=== PATIENT | female | born 1955 | race Caucasian/White ===

== ENCOUNTER → 2017-10-24 15:51 | Outpatient (CLI) | payer MEDICARE, SELFPAY ==
--- NOTE | 2017-10-24 16:01 | HPBI_ITS ---
MAMMOGRAPHY - BILATERAL SCREENING REASON FOR EXAM: Female, 62 years old. Routine annual screening examination. PERTINENT HISTORY: Aunt with breast cancer. TECHNIQUE: Digital bilateral breast liborio (3D mammographic acquisition) in the CC and MLO projections. 2-D mediolateral oblique (MLO) and craniocaudad (CC) views of both breasts were obtained. CAD: Full Field Digital Mammography with Computer Added Detection was performed. COMPARISON: Comparison is made with prior study dated December 09, 2015. FINDINGS: Breast Composition: The breasts are almost entirely fatty. There are no dominant masses or suspicious calcifications. No other significant abnormalities are identified. There has been no significant change since the prior study. HPBI/SCREENING MAMM (CAD), BILAT IMPRESSION: Stable bilateral screening mammogram. Yearly follow-up mammogram recommended. (A) ASSESSMENT CATEGORY: BIRADS Category 1: Negative. A letter regarding these results will be sent to the patient by the facility within 30 days. Approximately 10% of breast cancers are not detected by mammography. A normal mammogram should not delay biopsy of a clinically suspicious abnormality. [id number] Electronically Signed: Darius Marin MD at 9:39 EST Tel [phone], Service support ,
== END ==
PROVIDERS: Family Provider Family Medicine; PCP Family Medicine; Visit Provider Nurse Practitioner Women's Health
DX: Z12.31 Encounter for screening mammogram for malignant neoplasm of breast (principal)
CPT/HCPCS: 77063; 77067

== ENCOUNTER → 2017-11-16 13:49 | Outpatient (CLI) | payer MEDICARE, SELFPAY ==
[2017-11-16 16:00] LABS: Hemoglobin A1c 7.8 % (4.2-6.3)
[2017-11-16 16:04] LABS: AST(SGOT) 14 U/L (15-37); Alanine Aminotransfer ALT/SGPT 32 U/L (13-56); Albumin, Serum 3.5 g/dL (3.2-5.0); Alkaline Phosphatase 56 U/L (45-117); Anion Gap 9 (5-15); BUN 19 mg/dL (7-18); BUN/Creat Ratio 28.9 RATIO (10-20); Calcium,Total 8.8 mg/dL (8.5-10.1); Chloride 106 mmol/L (98-107); Cholesterol 124 mg/dL (200); Creatinine, Serum 0.66 mg/dL (0.55-1.02); EST Glomerular Filtration Rate 97 mL/min (>60); Est Glom Filt Rate - Afr Amer 117 mL/min (>60); Globulin 3.4 g/dL (2.2-4.2); Glucose 140 mg/dL (74-106); High Density Lipoprotein 51 mg/dL; Magnesium 1.7 mg/dL (1.6-2.6); Potassium 3.8 mmol/L (3.5-5.1); Protein, Total 6.9 g/dL (6.4-8.2); Sodium Level 140 mmol/L (136-145); Thyroid Stim Hormone (TSH) 2.22 uIU/mL (0.358-3.74); Triglycerides 169 mg/dL; Very Low Density Lipoprotein 34 mg/dL (5-40)
[2017-11-16 16:06] LABS: Hematocrit 39.7 % (37-47); Hemoglobin 12.3 g/dl (12.0-15.0); Mean Corpuscular Hgb 26.1 pg (27.0-32.0); Mean Corpuscular Volume 84.1 fL (81-99); Mean Platelet Vol. 9.5 fl (6.2-12.0); POSITIVE COUNT NO; POSITIVE DIFFERENTIAL NO; POSITIVE MORPHOLOGY NO; Platelet Count 371 K/mm3 (150-450); RBC Distribution Width CV 16.5 % (11.6-14.6); RBC Distribution Width SD 50.1 fl (35.1-43.9); Red Blood Count 4.72 M/mm3 (4.2-5.4); White Blood Count 10.8 K/mm3 (4.4-11.0)
[2017-11-16 16:07] LABS: Absolute Lymphocyte Count 2.57 X10^3/ul (0.83-4.51); Absolute Neutrophil Count 7.5 X10^3/uL (2.0-7.7); Basophil# 0.01 X10^3/uL; Basophil% 0.1 % (0-1); Eosinophil# 0.16 X10^3/uL; Eosinophils% 1.5 % (0-5); Lymphocyte # 2.57 X10^3/ul (4.0); Lymphocyte % 23.8 % (19-41); Monocyte# 0.55 X10^3/uL; Monocyte% 5.1 % (0-10); Neutrophil # 7.51 X10^3/uL (2.7-7.7); Neutrophil % 69.3 % (47-70)
[2017-11-16 16:24] LABS: Microalbumin,Random Urine 68.6 mg/L (NO RANGE EST.); Microalbumin:Creatinine Ratio 52.8 mg/g CRE (<30 mg/g CRE)
== END ==
PROVIDERS: Family Provider Family Medicine; PCP Family Medicine; Visit Provider Family Medicine
DX: E83.42 Hypomagnesemia (principal); R00.2 Palpitations; I10 Essential (primary) hypertension; E11.9 Type 2 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 without complications; E78.5 Hyperlipidemia, unspecified
CPT/HCPCS: 36415; 80053; 80061; 82043; 82570; 83036; 83735; 84443; 85025

== ENCOUNTER 2017-12-13 06:15 | Emergency (ER) | payer MEDICARE, SELFPAY ==
[2017-12-13 06:16] VITALS: BP 79/57
[2017-12-13 06:17] VITALS: BP 79/57; PULSE 105; RESP 22; TEMP 36.3; O2SAT 99; BMI 47.4
[2017-12-13 06:20] VITALS: BP 126/79; BP 134/75
[2017-12-13 06:43] LABS: Absolute Lymphocyte Count 1.63 X10^3/ul (0.83-4.51); Absolute Neutrophil Count 6.7 X10^3/uL (2.0-7.7); Basophil# 0.01 X10^3/uL; Basophil% 0.1 % (0-1); Eosinophil# 0.06 X10^3/uL; Eosinophils% 0.7 % (0-5); Hematocrit 43.1 % (37-47); Hemoglobin 13.9 g/dl (12.0-15.0); Lymphocyte # 1.63 X10^3/ul (4.0); Lymphocyte % 18.1 % (19-41); Mean Corp Hgb Conc 32.3 g/gl (32-36); Mean Corpuscular Hgb 26.9 pg (27.0-32.0); Mean Corpuscular Volume 83.4 fL (81-99); Mean Platelet Vol. 9.4 fl (6.2-12.0); Monocyte# 0.59 X10^3/uL; Monocyte% 6.6 % (0-10); Neutrophil # 6.68 X10^3/uL (2.7-7.7); Neutrophil % 74.3 % (47-70); Platelet Count 504 K/mm3 (150-450); RBC Distribution Width SD 51.4 fl (35.1-43.9); Red Blood Count 5.17 M/mm3 (4.2-5.4)
[2017-12-13 06:44] LABS: POSITIVE COUNT NO; POSITIVE DIFFERENTIAL NO; POSITIVE MORPHOLOGY NO
[2017-12-13] MEDS: 0.9% Normal Saline 1,000 ML 1000 ML IV (06:47)
[2017-12-13] MEDS: Ondansetron 4 MG/2 ML Vial IV ×2 (06:48→08:37)
--- NOTE | 2017-12-13 06:54 | ED.VISSUMM ---
- ER Visit Summary Date of Service: 12/13/17 Chief Complaint: Nausea, vomiting, diarrhea History of Present Illness: The patient is a 62 F presents initially with diarrhea 2 days ago, total of 20 episodes, last time was prior to arrival. No recent antibiotics. No melena or hematochezia. Also states 2 days ago had vomiting of 6-7 episodes, none for the past day. Currently nausea, states he is trying to keep up with fluids. Denies abdominal pain. Denies fever, chills, sweats. No cough or chest pains. States his urine frequency and dysuria a few days ago which resolved with cranberry. No other complaints. 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 Physical Examination: General: Alert and oriented ?3, no acute distress HEENT: Normocephalic, atraumatic. Mild dry mucosa membranes Neck: supple, nontender. Cardiovascular: Regular rate and rhythm, no murmurs Respiratory: Normal breath sounds, symmetric, no distress Abdomen: Soft, nontender, nondistended. Negative Hassan's or McBurney's tenderness. Extremities: Nontender, no edema, pulses intact ?4 Neuro: no focal neurological deficits. Test Results: [] Emergency Department Course and Treatment: Patient nonsurgical abdomen. Initial triage blood pressure 79/57, rechecked in the room was 126/79. Patient mild dry mucosa membranes. Given IV fluids, Zofran for nausea. Will check abdominal labs including INR. UA also sent for recent dysuria and frequency. Patient will be signed out to oncoming physician. Treatment Plan: [] Disposition: Pending Impression: 1. Nausea, vomiting, diarrhea This note was generated with [employer] dictation software. It may contain incorrect words, spelling, and punctuation that were not noted in review of the chart prior to signing ED Disposition - Plan for ED Patient: Chief Complaint: Nausea/Vomiting/Diarrhea Referrals: Sukhdeep Matthews DO [Primary Care Provider] -
[2017-12-13 06:55] LABS: Bacteria 0 SEEN /hpf (None Seen); Mucous, Urine 0 SEEN /hpf (<or=2+)
[2017-12-13 06:57] LABS: ALB/GLOB Ratio 0.9 RATIO (0.9-2.4); AST(SGOT) 11 U/L (15-37); Alanine Aminotransfer ALT/SGPT 20 U/L (13-56); Albumin, Serum 3.6 g/dL (3.2-5.0); Alkaline Phosphatase 69 U/L (45-117); Anion Gap 7 (5-15); BUN 12 mg/dL (7-18); BUN/Creat Ratio 16.8 RATIO (10-20); Calcium,Total 8.4 mg/dL (8.5-10.1); Chloride 107 mmol/L (98-107); Creatinine, Serum 0.72 mg/dL (0.55-1.02); EST Glomerular Filtration Rate 88 mL/min (>60); Est Glom Filt Rate - Afr Amer 106 mL/min (>60); Estimated Creatinine Clearance 69.06 ml/min; Globulin 4.1 g/dL (2.2-4.2); Glucose 180 mg/dL (74-106); Lipase 53 U/L (73-393); Potassium 3.3 mmol/L (3.5-5.1); Protein, Total 7.7 g/dL (6.4-8.2); Sodium Level 138 mmol/L (136-145)
[2017-12-13 07:03] LABS: Color, Urine YELLOW (Yellow); Glucose, Dipstick Normal (Normal); Ketone-Dipstick 5 mg/dl (Negative); Leukocyte Esterase-Dipstick 500 /ul (Negative); Nitrite-Dipstick Positive (Negative); Occult Blood-Urine 50 /ul (Negative); Protein-Dipstick 30 mg/dl (Negative); Red Blood Cells-Urine 0-5 SEEN /hpf (0-5); Squamous Epithelial Cells - UA 50-100 SEEN /hpf (5-10); Urine Bilirubin Dipstick Negative (Negative); Urine Clarity Cloudy (Clear); Urine Urobilinogen Normal (Normal); White Blood Cells 10-25 SEEN /hpf (0-5)
[2017-12-13 07:09] LABS: International Normalized Ratio 2.4; Prothrombin Time (Protime)PT. 26.2 SECONDS (11.7-14.9)
[2017-12-13] MEDS: proMETHazine 25 MG/ML Syringe 12.5 MG IV (07:21)
[2017-12-13 08:00] VITALS: BP 128/74; PULSE 84; RESP 18; O2SAT 98
[2017-12-13] MEDS: Mag Hydrox/Al Hydrox/Simeth 30 ML UDC PO (08:36)
[2017-12-13 08:40] VITALS: BP 110/62; PULSE 83; RESP 18
--- NOTE | 2017-12-13 09:26 | ED.VISSUMM ---
- ER Visit Summary Date of Service: 12/13/17 Addendum: This patient was checked out to me by Dr. Sheldon with period of observation pending. Received a dose of Rocephin IV. She complained of heartburn and was given Maalox and Zofran IV. She is resting comfortably. She has been able to ambulate about the emergency part without difficulty. Treatment Plan: Patient will be discharged on Keflex. She is instructed not to take her Coumadin for the next 2 days and to get her INR checked again. She will be placed on Zofran and Bentyl. Follow-up her primary care physician 1-2 days if not improving. Return to the emergency department for any worsening symptoms. Disposition: To home in improved and stable condition. Impression: 1. UTI. 2. Vomiting/diarrhea. 3. Coumadin coagulopathy. This note was generated with [employer] dictation software. It may contain incorrect words, spelling, and punctuation that were not noted in review of the chart prior to signing ED Disposition - Plan for ED Patient: Chief Complaint: Nausea/Vomiting/Diarrhea Instructions: ED Vomiting Diarrhea Nonspecific Ad Prescriptions: Ondansetron [Zofran Odt] 4 mg PO Q8H PRN PRN #10 tablet PRN Reason: Nausea Cephalexin [Keflex] 500 mg PO Q6 #24 capsule Dicyclomine HCl [Bentyl] 20 mg PO TIDAC #20 capsule Referrals: Sukhdeep Matthews DO [Primary Care Provider] - 1-2 Days if not improving
[2017-12-13 09:54] VITALS: BP 120/70; PULSE 80; RESP 18
== END 2017-12-13 09:57 | disposition home or self-care (01) ==
PROVIDERS: Emergency Provider Emergency Medicine; Family Provider Family Medicine; PCP Family Medicine
DX: N39.0 Urinary tract infection, site not specified (principal); R11.2 Nausea with vomiting, unspecified; R19.7 Diarrhea, unspecified; D68.2 Hereditary deficiency of other clotting factors; I25.2 Old myocardial infarction; J45.909 Unspecified asthma, uncomplicated; E11.9 Type 2 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 without complications; I10 Essential (primary) hypertension; E78.00 Pure hypercholesterolemia, unspecified; Z86.711 Personal history of pulmonary embolism; Z86.718 Personal history of other venous thrombosis and embolism; Z90.89 Acquired absence of other organs; Z90.49 Acquired absence of other specified parts of digestive tract; Z96.643 Presence of artificial hip joint, bilateral; Z79.84 Long term (current) use of oral hypoglycemic drugs; Z79.01 Long term (current) use of anticoagulants; Z79.899 Other long term (current) drug therapy
CPT/HCPCS: 80053; 81001; 83690; 85025; 85610; 87086; 87088; 87186; 96361; 96365; 96374; 96375; 96376; 99284; J7030; A4216; J2405

== ENCOUNTER 2017-12-21 17:25 | Inpatient (IN) | payer MEDICARE, SELFPAY ==
[2017-12-21 17:25] VITALS: BP 177/100; PULSE 110; RESP 18; TEMP 36.9; O2SAT 96; BMI 47.2
--- NOTE | 2017-12-21 17:47 | CT_ITS ---
STUDY: CT ABDOMEN AND PELVIS WITH CONTRAST REASON FOR EXAM: Female, 62 years old. Diffuse abdominal pain RADIATION DOSAGE (If Supplied By Facility): CTDIvol = ( 21.87 ) mGy, DLP = ( 1747.42 ) mGycm TECHNIQUE: Transaxial images were obtained from the dome of the diaphragm to the symphysis pubis without oral contrast. 100ML ml of Isovue 300 contrast was administered. Sagittal and coronal images were reconstructed. Individualized dose optimization techniques were used for this CT. COMPARISON: March 14, 2013 FINDINGS: There is minor atelectasis at the right lung base.. The visualized portions of the heart are within normal limits. Liver is enlarged and fatty infiltrated without mass or bile duct dilatation. Gallbladder has been removed surgically. Normal spleen. The pancreas is atrophic and fatty infiltrated. Normal bilateral adrenal glands. Normal right kidney. Normal left kidney. Normal visualized stomach. Normal small intestine. Normal colon. Appendix not visualized consistent with appendectomy. Minor atherosclerotic changes of the aorta without evidence for aneurysm. Normal inferior vena cava. Normal retroperitoneum. Normal urinary bladder. There is a left adnexal cyst measuring approximately 3 x 2.8 cm likely ovarian Tiny fat-containing umbilical hernia.. Lumbar spine demonstrates moderate spondylosis. Bilateral hip prostheses are noted The left adnexal cyst has decreased in size since prior study CT/Abdomen/Pelvis WITH Contrast IMPRESSION: No acute abnormality Hepatomegaly and nonspecific fatty infiltration of the liver. Status post cholecystectomy and appendectomy. small left ovarian cyst Multiple other findings as above Electronically Signed: Eleazar Venegas MD at 20:36 EDT , Service support ,
--- NOTE | 2017-12-21 17:50 | ED.VISSUMM ---
- ER Visit Summary Date of Service: 12/21/17 Chief Complaint: Abdominal pain History of Present Illness: The patient is a 62 F presenting with abdominal pain. She states she had similar symptoms a week ago. She was seen in the ED at that time. She was treated with Bentyl and Zofran with improvement. She was also started on Keflex for a UTI. She states she was feeling improved and her symptoms started again today. She has had vomiting and diarrhea. Denies fever. She has diffuse abdominal pain. She has a history of previous appendectomy and cholecystectomy. Physical Examination: Vitals are stable. Patient is afebrile. Alert no acute distress. HEENT exam is unremarkable. Neck is supple. Lungs are clear and equal bilaterally. Heart is regular rate and rhythm. Abdomen is soft diffuse tenderness with no rebound or guarding Extremities are unremarkable. Skin is warm and dry. No focal neurologic deficit. Remainder of exam is unremarkable. Emergency Department Course and Treatment: She is given morphine, Zofran. CBC shows a white count of 23.4. Chemistries show glucose 167. INR 2.1. Liver enzymes are normal. Urinalysis shows 5-10 white cells. Urine culture was sent. CT abdomen and pelvis shows no acute process. She continues to have diffuse abdominal pain. Chest xray is unremarkable. Stool studies will be sent. Discussed with the hospitalist for observation. Disposition: Admission Impression: Abdominal pain, leukocytosis, diarrhea This note was generated with [employer] dictation software. It may contain incorrect words, spelling, and punctuation that were not noted in review of the chart prior to signing ED Disposition - Plan for ED Patient: Chief Complaint: Abd Pain Referrals: Sukhdeep Matthews DO [Primary Care Provider] -
[2017-12-21] MEDS: Ondansetron 4 MG/2 ML Vial IV (18:08)
[2017-12-21] MEDS: Morphine 4 MG/ML Syringe IV (18:08)
[2017-12-21 18:16] LABS: Bacteria 0 SEEN /hpf (None Seen)
[2017-12-21 18:30] LABS: International Normalized Ratio 2.1
[2017-12-21 18:34] LABS: Absolute Lymphocyte Count 1.09 X10^3/ul (0.83-4.51); Absolute Neutrophil Count 21.3 X10^3/uL (2.0-7.7); Basophil# 0.02 X10^3/uL; Basophil% 0.1 % (0-1); Eosinophil# 0.24 X10^3/uL; Hematocrit 44.2 % (37-47); Hemoglobin 13.7 g/dl (12.0-15.0); Lymphocyte # 1.09 X10^3/ul (4.0); Lymphocyte % 4.7 % (19-41); Mean Platelet Vol. 9.6 fl (6.2-12.0); Monocyte# 0.62 X10^3/uL; Monocyte% 2.7 % (0-10); Neutrophil % 91.2 % (47-70); Platelet Count 402 K/mm3 (150-450); RBC Distribution Width CV 16.5 % (11.6-14.6); RBC Distribution Width SD 50.9 fl (35.1-43.9); Red Blood Count 5.26 M/mm3 (4.2-5.4); White Blood Count 23.4 K/mm3 (4.4-11.0)
[2017-12-21 18:35] LABS: Differential Indicated SCAN CRITERIA MET; POSITIVE COUNT NO; POSITIVE DIFFERENTIAL YES; POSITIVE MORPHOLOGY YES
[2017-12-21 18:57] LABS: AST(SGOT) 17 U/L (15-37); Alanine Aminotransfer ALT/SGPT 23 U/L (13-56); Albumin, Serum 3.5 g/dL (3.2-5.0); Alkaline Phosphatase 65 U/L (45-117); Anion Gap 11 (5-15); BUN 16 mg/dL (7-18); BUN/Creat Ratio 21.3 RATIO (10-20); Bilirubin, Direct 0.06 mg/dL (0.00-0.30); Calcium,Total 8.9 mg/dL (8.5-10.1); Chloride 104 mmol/L (98-107); Creatinine, Serum 0.75 mg/dL (0.55-1.02); EST Glomerular Filtration Rate 83 mL/min (>60); Est Glom Filt Rate - Afr Amer 100 mL/min (>60); Globulin 3.8 g/dL (2.2-4.2); Glucose 167 mg/dL (74-106); Lipase 77 U/L (73-393); Potassium 3.6 mmol/L (3.5-5.1); Protein, Total 7.3 g/dL (6.4-8.2); Sodium Level 141 mmol/L (136-145)
[2017-12-21 19:02] LABS: Color, Urine Yellow (Yellow); Glucose, Dipstick Normal (Normal); Ketone-Dipstick 5 mg/dl (Negative); Leukocyte Esterase-Dipstick 25 /ul (Negative); Nitrite-Dipstick Negative (Negative); Occult Blood-Urine 25 /ul (Negative); Protein-Dipstick 30 mg/dl (Negative); Specific Gravity, Urine 1.025 (1.002-1.030); Urine Bilirubin Dipstick 1 mg/dL (Negative); Urine Clarity Sl. Cloudy (Clear); Urine Urobilinogen Normal (Normal)
[2017-12-21 19:29] VITALS: BP 158/89; PULSE 95; RESP 14; O2SAT 99
[2017-12-21 19:32] LABS: Calcium Oxalate Crystals Ur 1+ /hpf (<or=2+); Squamous Epithelial Cells - UA 0-5 SEEN /hpf (5-10); White Blood Cells 5-10 SEEN /hpf (0-5)
[2017-12-21 19:33] LABS: Mucous, Urine RARE /hpf (<or=2+); Red Blood Cells-Urine 0-5 SEEN /hpf (0-5)
[2017-12-21 20:49] VITALS: BP 155/70; PULSE 92; RESP 14; O2SAT 99
--- NOTE | 2017-12-21 20:50 | RAD_ITS ---
STUDY: X-RAY CHEST REASON FOR EXAM: Female, 62 years old. Abdominal pain and vomiting TECHNIQUE: AP portable COMPARISON: December 04, 2016 FINDINGS: There is elevation right hemidiaphragm and mild subsegmental atelectasis in the right lower lobe. There is no demonstrated pleural abnormality. The heart is upper normal size. Normal mediastinum and tessie. Normal visualized pulmonary arteries. Normal visualized aortic arch and descending thoracic aorta. Dorsal spine demonstrates spondylosis. Normal visualized ribs, clavicles, and shoulders. There is no demonstrated abnormality of the visualized soft tissue structures of the upper abdomen. RAD/Chest 1 View (Portable) IMPRESSION: Elevated right hemidiaphragm and mild right basilar atelectasis Electronically Signed: Eleazar Venegas MD at 21:29 EDT , Service support ,
[2017-12-21 21:09] VITALS: BP 150/80; PULSE 92; RESP 14; O2SAT 99
[2017-12-21] MEDS: proMETHazine 25 MG/ML Syringe 6.25 MG IV (21:36)
--- NOTE | 2017-12-21 22:44 | PCM.HP.STD ---
Problem List (1) Diarrhea Status: Acute (2) Sprain and strain of ribs Status: Acute (3) DVT (deep venous thrombosis) Status: Chronic Qualifiers: DVT location: lower extremity (4) Diabetes mellitus Status: Chronic (5) HLD (hyperlipidemia) Status: Chronic (6) HTN (hypertension) Status: Chronic History of Present Illness Date of Admission: 12/21/17 Chief Complaint: Diarrhea The patient is a 62 year old female w/ h/o DVT, PE, DMII, HTN and lipidemia admitted for diarrhea. Pt had similar episode a week ago when she presented to the ED. She had diarrhea, n/v and abdominal pain at that time as well. The pain has improved as well as the diarrhea until today. Today, she noted worsening dull-aching abdominal pain diffusely in her upper abdominal area. Pain was severe and would stop her in her track. Pain was associated with diarrhea. No blood. No tarry stool. She had multiple episodes of diarrhea today. Nothing would make it better or worse. No one else in her family is sick. She also has n/v and is not able to tolerate PO. She went to the ED for further workup. Past Medical History Past Medical History (Chronic Problems): Chronic Problems (Last Updated 09/07/17 @ 14:31 by Lor Sahu) HLD (hyperlipidemia) (Chronic) HTN (hypertension) (Chronic) Diabetes mellitus (Chronic) DVT (deep venous thrombosis) (Chronic) Pulmonary emboli (Chronic) 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 syndrome (Chronic) Allergies KENYA Inhibitors Allergy (Verified 12/21/17 17:27) Other clindamycin Allergy (Verified 12/21/17 17:27) Hives liraglutide [From Victoza] Allergy (Verified 12/21/17 17:27) Hives propoxyphene napsylate [From Darvocet-N 100] Allergy (Verified 12/21/17 17:27) Unknown Home Medications: Ambulatory Orders Medication Instructions Recorded Albuterol IH (ProAir) [Proair Hfa] 2 puff INHALATION Q4H PRN PRN 02/09/14 Fenofibrate [Lofibra] 160 mg PO QHS 02/09/14 Hydrochlorothiazide 25 mg PO DAILY 02/09/14 Lansoprazole [Prevacid] 30 mg PO DAILY 02/09/14 Metformin HCl [Glucophage] 1,000 mg PO BIDCM 02/09/14 Ropinirole HCl [Requip] 3 - 6 mg PO QHS 02/09/14 Warfarin [Coumadin] 2.5 mg PO DAILY 02/09/14 traMADol [Ultram] 50 mg PO Q6H PRN PRN #8 tablet 04/09/14 Exenatide [Byetta (BKC)] 10 mcg SC BIDAC 11/30/16 Losartan Potassium [Cozaar] 50 mg PO DAILY 11/30/16 Sertraline HCl [Zoloft] 200 mg PO DAILY 11/30/16 Atorvastatin Calcium [Lipitor] 40 mg PO QHS 12/04/16 trospium ER 60 mg capsule,extended 60 mg PO QAM 09/07/17 release 24 hr Cephalexin [Keflex] 500 mg PO Q6 #24 capsule 12/13/17 Dicyclomine HCl [Bentyl] 20 mg PO TIDAC #20 capsule 12/13/17 Furosemide [Lasix] 20 mg PO DAILY 12/13/17 Ondansetron [Zofran Odt] 4 mg PO Q8H PRN PRN #10 tablet 12/13/17 Potassium Chloride [K-Dur] 20 meq PO BID 12/22/17 Smoking Status: Never smoker - *Family History Paternal History Items: Heart Disease - CHF Review of Systems Constitutional: Denies: Chills, Fever, Weight Change HEENT: Denies: Head Aches, Sinus Congestion, Sinus Drainage Cardiovascular: Denies: Chest Pain, Palpitations Respiratory: Denies: Cough, Shortness of breath at rest, Sputum production Gastrointestinal: Denies: Abdominal Pain, Nausea, Vomiting Genitourinary: Denies: Dysuria Musculoskeletal: Denies: Joint Pain, Joint Tenderness Skin: Denies: Rash, Wounds Neurological: Denies: Numbness, Tingling, Focal weakness Psychiatric: Denies: Anxiety, Depression, Homicidal Ideations, Suicidal Ideations Hematologic/ Lymphatic: Denies: Easy Bruising, Easy Bleeding VTE Information - Inpt Only VTE Present on Admission: No VTE Mechan Device Prophylaxis: SCD's VTE Pharm Prophylaxis ordered?: Yes Patient Problems: Active and Suspected Problems (Last Updated 09/07/17 @ 14:31 by Lor Sahu) Diarrhea (Acute) - Physical Exam General: Alert, Oriented x3, Cooperative HEENT: Atraumatic, PERRLA, EOMI, Normocephalic Neck: Supple, No JVD, Negative Carotid Bruits Lungs: Clear to auscultation, Normal air movement Cardiovascular: Regular rate, No murmurs Abdomen: Bowel Sounds Present, Soft, Distended, Obese, Tender Extremities: No edema, Capillary Refill Less than 3 Seconds Skin: No rashes, No breakdown Musculoskeletal: No Tenderness to Palpation of Joints or Extremities Neurological: Cranial nerves II-XII grossly intact Psych/Mental Status: Normal Affect, Appropriate Vital Signs Temp Pulse Resp BP Pulse Ox 98.5 F 92 14 150/80 H 99 12/21/17 17:25 12/21/17 21:09 12/21/17 21:09 12/21/17 21:09 12/21/17 21:09 Oxygen Delivery Method Room Air Weight: 124.738 kg Body Mass Index (BMI) 47.2 Laboratory Tests Past 24 Hrs 12/21/17 12/21/17 12/21/17 18:00 18:00 18:00 WBC 23.4 H RBC 5.26 Hgb 13.7 Hct 44.2 MCV 84.0 MCH 26.0 L MCHC 31.0 L RDW 16.5 H RDW Differential 50.9 H Plt Count 402 MPV 9.6 Immature Gran % (Auto) 0.300 Neut % (Auto) 91.2 H Lymph % (Auto) 4.7 L [place] % (Auto) 2.7 Eos % (Auto) 1.0 Baso % (Auto) 0.1 Absolute Neuts (auto) 21.3 H Absolute Lymphs (auto) 1.09 Total Counted Not Reportable Differential Comment PT 24.0 H INR 2.1 Sodium 141 Potassium 3.6 Chloride 104 Carbon Dioxide 26.0 Anion Gap 11 BUN 16 Creatinine 0.75 Estim Creat Clear Calc 66.30 Est GFR (MDRD) Af Amer 100 Est GFR (MDRD) Non-Af 83 BUN/Creatinine Ratio 21.3 H Glucose 167 H Calcium 8.9 Total Bilirubin 0.30 Direct Bilirubin 0.06 AST 17 ALT 23 Alkaline Phosphatase 65 Total Protein 7.3 Albumin 3.5 Globulin 3.8 Lipase 77 Urine Color Urine Clarity Urine pH Ur Specific [place] Urine Protein Urine Glucose (UA) Urine Ketones Urine Occult Blood Urine Nitrite Urine Bilirubin Urine Urobilinogen Ur Leukocyte Esterase Urine RBC Urine WBC Ur Squamous Epith Cells Calcium Oxalate Crystal Urine Bacteria Urine Mucus 03/30/18 18:00 WBC RBC Hgb Hct MCV MCH MCHC RDW RDW Differential Plt Count MPV Immature Gran % (Auto) Neut % (Auto) Lymph % (Auto) [place] % (Auto) Eos % (Auto) Baso % (Auto) Absolute Neuts (auto) Absolute Lymphs (auto) Total Counted Differential Comment PT INR Sodium Potassium Chloride Carbon Dioxide Anion Gap BUN Creatinine Estim Creat Clear Calc Est GFR (MDRD) Af Amer Est GFR (MDRD) Non-Af BUN/Creatinine Ratio Glucose Calcium Total Bilirubin Direct Bilirubin AST ALT Alkaline Phosphatase Total Protein Albumin Globulin Lipase Urine Color Yellow Urine Clarity Sl. Cloudy Urine pH 5.0 Ur Specific [place] 1.025 Urine Protein 30 H Urine Glucose (UA) Normal Urine Ketones 5 H Urine Occult Blood 25 H Urine Nitrite Negative Urine Bilirubin 1 H Urine Urobilinogen Normal Ur Leukocyte Esterase 25 H Urine RBC 0-5 SEEN Urine WBC 5-10 SEEN Ur Squamous Epith Cells 0-5 SEEN Calcium Oxalate Crystal 1+ Urine Bacteria 0 SEEN Urine Mucus RARE Assessment/Plan Active and Suspected Problems (Last Updated 09/07/17 @ 14:31 by Lor Sahu) Diarrhea (Acute) 62 year old female w/ h/o DVT, PE, DMII, HTN and lipidemia admitted for diarrhea. 1) Diarrhea: C. diff and stool and enteric pathogens stool pending. C/w empiric treatment with Cipro and flagyl given leukocytosis. Awaiting cultures. Supportive care, ie hydration. 2) Abdominal pain: Unclear etiology. Possible viral gastroenteritis / GERD. Lipase wnl. Lactic wnl. CT abdominal negative. LFT wnl. Pain controlled. Monitor. 3) H/o DVT / PE: C/w coumadin.
[2017-12-21 23:29] VITALS: BMI 47.2
[2017-12-21 23:41] VITALS: BMI 47.3
[2017-12-21 23:42] VITALS: BP 119/60; PULSE 99; RESP 18; TEMP 36.9; O2SAT 96
[2017-12-22] VITALS (7 sets, daily range): BP systolic 90–127; BP diastolic 43–89; PULSE 69–78; RESP 16–18; TEMP 36.1–36.8; O2SAT 96–97
[2017-12-22 00:55] LABS: Bedside Glucose 144 mg/dL (70-110)
[2017-12-22] MEDS: 0.9% Normal Saline 1,000 ML 150 ML IV (01:05)
[2017-12-22] MEDS: Ciprofloxacin 400 MG/200 ML BAG 200 MG IV (02:22)
[2017-12-22 05:46] LABS: Reflex Lactate? Y
[2017-12-22] MEDS: Dicyclomine 10 MG Capsule 20 MG PO ×3 (06:04→16:48)
[2017-12-22 06:55] LABS: Absolute Lymphocyte Count 1.58 X10^3/ul (0.83-4.51); Absolute Neutrophil Count 9.1 X10^3/uL (2.0-7.7); Basophil# 0.01 X10^3/uL; Basophil% 0.1 % (0-1); Eosinophil# 0.61 X10^3/uL; Eosinophils% 5.2 % (0-5); Hematocrit 35.6 % (37-47); Hemoglobin 11.3 g/dl (12.0-15.0); Lymphocyte # 1.58 X10^3/ul (4.0); Lymphocyte % 13.4 % (19-41); Mean Corp Hgb Conc 31.7 g/gl (32-36); Mean Corpuscular Hgb 26.7 pg (27.0-32.0); Mean Platelet Vol. 9.4 fl (6.2-12.0); Monocyte# 0.44 X10^3/uL; Monocyte% 3.7 % (0-10); Neutrophil # 9.09 X10^3/uL (2.7-7.7); Neutrophil % 77.4 % (47-70); POSITIVE COUNT NO; POSITIVE DIFFERENTIAL NO; POSITIVE MORPHOLOGY NO; Platelet Count 361 K/mm3 (150-450); RBC Distribution Width CV 16.6 % (11.6-14.6); RBC Distribution Width SD 50.6 fl (35.1-43.9); Red Blood Count 4.24 M/mm3 (4.2-5.4); White Blood Count 11.8 K/mm3 (4.4-11.0)
[2017-12-22 07:07] LABS: Anion Gap 8 (5-15); BUN 11 mg/dL (7-18); BUN/Creat Ratio 20.4 RATIO (10-20); Calcium,Total 7.6 mg/dL (8.5-10.1); Chloride 107 mmol/L (98-107); Creatinine, Serum 0.54 mg/dL (0.55-1.02); EST Glomerular Filtration Rate 121 mL/min (>60); Est Glom Filt Rate - Afr Amer 147 mL/min (>60); Estimated Creatinine Clearance 92.08 ml/min; Glucose 132 mg/dL (74-106); Potassium 3.2 mmol/L (3.5-5.1); Sodium Level 140 mmol/L (136-145)
[2017-12-22 07:08] LABS: Lactic Acid 1.4 mmol/L (0.4-2.0)
[2017-12-22 09:22] LABS: Magnesium 1.5 mg/dL (1.6-2.6)
[2017-12-22] MEDS: Sertraline 100 MG Tablet 200 MG PO (09:39)
[2017-12-22] MEDS: metFORMIN HCl 1,000 MG Tablet 1000 MG PO ×2 (09:39→16:49)
[2017-12-22] MEDS: Pantoprazole Sodium 40 MG Tablet PO (09:39)
[2017-12-22] MEDS: Tolterodine Tartrate 4 MG CAP.SA PO (09:39)
--- NOTE | 2017-12-22 09:46 | PN_ITS ---
Subjective: Chief complaint: Follow-up after admission for abdominal pain, diarrhea and leukocytosis which is likely due to viral gastroenteritis. Patient seen and examined. No acute events overnight. She had one episode of diarrhea this morning, liquid stool without blood. She has no more abdominal pain. Denied nausea vomiting. Denied fever or chills. Her blood pressure has been borderline, improved this morning. Other vital signs are stable, afebrile. - Physical Exam General: Alert, Oriented x3, Cooperative, No apparent distress HEENT: Atraumatic, PERRLA, EOMI Oral: Moist Mucosa, No Gingival or Mucosal Lesions/ Ulcerations Neck: Supple, No JVD, Negative Carotid Bruits, Thyroid Normal Size and Texture Lungs: Clear to auscultation, No rhonchi, No wheeze, No rales Cardiovascular: Regular rate, Regular Rhythm, Normal S1, Normal S2, PMI Normal Abdomen: Bowel Sounds Present, Soft, Non Tender, Non-Distended, No Hepato- splenomegaly Extremities: No clubbing, No cyanosis, No edema Skin: No rashes, No breakdown Lymphatic: No Cervical, Supraclavicular, or Inguinal Adenopathy Neurological: Cranial nerves II-XII grossly intact, Motor Exam 5/5 strength throughout Psych/Mental Status: Normal Affect, Appropriate, Alert and oriented to time, place, person, mood and affect Vital Signs Temp Pulse Resp BP Pulse Ox 97.3 F L 69 16 90/43 L 96 12/22/17 07:49 12/22/17 07:49 12/22/17 07:49 12/22/17 07:49 12/22/17 07:49 Oxygen Delivery Method Room Air Weight: 275 lb 12.772 oz Body Mass Index (BMI) 47.3 Intake and Output for Last 24 Hours 12/20/17 12/21/17 12/22/17 23:59 23:59 23:59 Intake Total 1420 / 1420 Balance 1420 / 1420 Laboratory Tests Past 24 Hrs 12/22/17 12/22/17 12/22/17 01:38 06:30 06:30 WBC 11.8 H RBC 4.24 Hgb 11.3 L Hct 35.6 L MCV 84.0 MCH 26.7 L MCHC 31.7 L RDW 16.6 H RDW Differential 50.6 H Plt Count 361 MPV 9.4 Immature Gran % (Auto) 0.200 Neut % (Auto) 77.4 H Lymph % (Auto) 13.4 L [place] % (Auto) 3.7 Eos % (Auto) 5.2 H Baso % (Auto) 0.1 Absolute Neuts (auto) 9.1 H Absolute Lymphs (auto) 1.58 Total Counted Not Reportable Sodium 140 Potassium 3.2 L Chloride 107 Carbon Dioxide 25.0 Anion Gap 8 BUN 11 Creatinine 0.54 L Estim Creat Clear Calc 92.08 Est GFR (MDRD) Af Amer 147 Est GFR (MDRD) Non-Af 121 BUN/Creatinine Ratio 20.4 H Glucose 132 H Lactic Acid 2.0 Calcium 7.6 L Magnesium 12/22/17 12/22/17 06:30 06:30 WBC RBC Hgb Hct MCV MCH MCHC RDW RDW Differential Plt Count MPV Immature Gran % (Auto) Neut % (Auto) Lymph % (Auto) [place] % (Auto) Eos % (Auto) Baso % (Auto) Absolute Neuts (auto) Absolute Lymphs (auto) Total Counted Sodium Potassium Chloride Carbon Dioxide Anion Gap BUN Creatinine Estim Creat Clear Calc Est GFR (MDRD) Af Amer Est GFR (MDRD) Non-Af BUN/Creatinine Ratio Glucose Lactic Acid 1.4 Calcium Magnesium 1.5 L POC Glucose 12/22/17 00:34 POC Glucose 144 H Clinical Impression(s) from Imaging Studies Abdomen/Pelvis CT 12/21/17 17:47 IMPRESSION: No acute abnormality Hepatomegaly and nonspecific fatty infiltration of the liver. Status post cholecystectomy and appendectomy. small left ovarian cyst Multiple other findings as above Electronically Signed: Eleazar Venegas MD at 20:36 EDT , Service support , Chest X-Ray 12/21/17 20:50 IMPRESSION: Elevated right hemidiaphragm and mild right basilar atelectasis Electronically Signed: Eleazar Venegas MD at 21:29 EDT , Service support , Medical Necessity - Tobacco Use Smoking Status: Never smoker Assessment/Plan This is a 61 years old female patient admitted because of abdominal pain, diarrhea and she was found to have elevated white blood cell count which is likely due to acute viral gastroenteritis. #1 abdominal pain/diarrhea/leukocytosis: Probably secondary to acute viral gastroenteritis. She is on IV fluids. Blood pressure is borderline but improved and she is asymptomatic. Lactic acid is normal. Stool for C. difficile and enteric pathogens are pending. Blood and urine cultures are pending. Patient reported improvement of her abdominal pain and diarrhea. She was on Keflex for UTI 1 week ago. Plan: Continue IV fluids with potassium replacement, awaiting stool for C. difficile and enteric pathogens, possible DC home later today. #2 hypokalemia/hypomagnesemia: Secondary to diarrhea in addition to Lasix and HCTZ. Started on IV fluids with potassium replacement this morning. Magnesium is 1.5, plan to replace magnesium with IV magnesium sulfate. #3 hypertension: Blood pressure was borderline this morning but she was astigmatic. Dose of Lasix and Cozaar held this morning. She denies any dizziness, lightheadedness, shortness of breath or weakness. #4 type 2 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: Blood sugar stable, continue metformin, start insulin sliding scale. #5 factor V Leiden with history of PEs and DVTs: On Coumadin, INR is therapeutic. #6 hyperlipidemia: Continue statins. #7 DVT prophylaxis: Coumadin, INR is therapeutic. This note was generated with [employer] software. It may contain incorrect words, spelling, and punctuation that were not noted in checking the note before signing.
[2017-12-22 11:26] LABS: Bedside Glucose 177 mg/dL (70-110)
--- NOTE | 2017-12-22 13:48 | CASEMGMT ---
See attached stripe matcher. Met face to face with patient earlier. Patient's pcp is Dr. Matthews. Also sees Dr. Amaral and previously dr. Sharp. States that she has some lower back problems and has had hip replaced 2x. No needs anticipated at this time. instructed that case mgmt will be available should any needs arise. Daniel Hi RN, [facility].
[2017-12-22] MEDS: metroNIDAZOLE 500 MG Tablet PO ×2 (14:36→20:59)
[2017-12-22 16:06] LABS: Bedside Glucose 148 mg/dL (70-110)
[2017-12-22] MEDS: Atorvastatin Calcium 40 MG Tablet PO (21:00)
[2017-12-22 21:06] LABS: Bedside Glucose 154 mg/dL (70-110)
[2017-12-22] MEDS: Fenofibrate 145 MG Tablet PO (22:21)
[2017-12-23 02:50] VITALS: BP 103/56; PULSE 60; RESP 18; TEMP 36.3; O2SAT 98
[2017-12-23] MEDS: Dicyclomine 10 MG Capsule 20 MG PO (06:38)
[2017-12-23] MEDS: metroNIDAZOLE 500 MG Tablet PO (06:38)
[2017-12-23 06:50] LABS: Bedside Glucose 127 mg/dL (70-110)
[2017-12-23 07:26] LABS: Absolute Lymphocyte Count 1.78 X10^3/ul (0.83-4.51); Absolute Neutrophil Count 5.8 X10^3/uL (2.0-7.7); Eosinophil# 0.38 X10^3/uL; Eosinophils% 4.6 % (0-5); Hematocrit 35.8 % (37-47); Lymphocyte # 1.78 X10^3/ul (4.0); Lymphocyte % 21.6 % (19-41); Mean Corp Hgb Conc 30.7 g/gl (32-36); Mean Corpuscular Hgb 26.4 pg (27.0-32.0); Mean Corpuscular Volume 85.9 fL (81-99); Mean Platelet Vol. 9.1 fl (6.2-12.0); Monocyte# 0.27 X10^3/uL; Monocyte% 3.3 % (0-10); Neutrophil # 5.79 X10^3/uL (2.7-7.7); Neutrophil % 70.3 % (47-70); Platelet Count 291 K/mm3 (150-450); RBC Distribution Width CV 17.1 % (11.6-14.6); RBC Distribution Width SD 54.2 fl (35.1-43.9); Red Blood Count 4.17 M/mm3 (4.2-5.4); White Blood Count 8.2 K/mm3 (4.4-11.0)
[2017-12-23 07:34] LABS: International Normalized Ratio 3.2; Prothrombin Time (Protime)PT. 32.9 SECONDS (11.7-14.9)
[2017-12-23 07:41] VITALS: O2SAT 99
[2017-12-23 07:52] LABS: POSITIVE COUNT NO; POSITIVE DIFFERENTIAL NO; POSITIVE MORPHOLOGY NO
[2017-12-23 08:15] VITALS: BP 119/70; PULSE 61; RESP 16; TEMP 36.4; O2SAT 100
[2017-12-23 08:16] LABS: Anion Gap 5 (5-15); BUN 10 mg/dL (7-18); BUN/Creat Ratio 21.2 RATIO (10-20); Calcium,Total 7.6 mg/dL (8.5-10.1); Chloride 114 mmol/L (98-107); Creatinine, Serum 0.47 mg/dL (0.55-1.02); EST Glomerular Filtration Rate 142 mL/min (>60); Est Glom Filt Rate - Afr Amer 172 mL/min (>60); Glucose 140 mg/dL (74-106); Potassium 3.7 mmol/L (3.5-5.1); Sodium Level 145 mmol/L (136-145)
[2017-12-23] MEDS: Pantoprazole Sodium 40 MG Tablet PO (09:28)
[2017-12-23] MEDS: metFORMIN HCl 1,000 MG Tablet 1000 MG PO (09:28)
[2017-12-23] MEDS: Furosemide 20 MG Tablet PO (09:29)
[2017-12-23] MEDS: Losartan Potassium 50 MG Tablet PO (09:29)
[2017-12-23] MEDS: Sertraline 100 MG Tablet 200 MG PO (09:29)
[2017-12-23] MEDS: Tolterodine Tartrate 4 MG CAP.SA PO (09:29)
--- NOTE | 2017-12-23 09:41 | PCM.DC ---
- Discharge Diagnoses Current Active Problems: Current Active and Chronic Problems (Last Updated 09/07/17 @ 14:31 by Lor Sahu) Factor V Leiden (Chronic) You will use the following diet at home:: Calorie/Carbohydrate Controlled (specify 1200, 1400, etc) - 1800 maricel., Cardiac Your food should be the consistency of: Regular Discharge Activity: Return to Normal Activity Weight Bearing Status: Full weight bearing Call your doctor if you observe: Fever of 101 or Higher, Shortness of breath, Dizziness, Fainting spells, Chest pain, Increased palpitations (irregular heartbeat), Uncontrolled pain Instructions: Clostridium difficile Infection Additional Instructions: Do not take Coumadin tonight, resume taking Coumadin tomorrow night, do the blood work on Sunday morning and call your PCP for next Coumadin dosing. Allergies/Adverse Reactions: Allergies KENYA Inhibitors Allergy (Verified 12/21/17 23:47) cough clindamycin Allergy (Verified 12/21/17 17:27) Hives liraglutide [From Victoza] Allergy (Verified 12/21/17 23:47) lump in throat propoxyphene napsylate [From Darvocet-N 100] Allergy (Verified 12/21/17 17:27) Unknown Medications to take at Discharge Albuterol IH (ProAir) [Proair Hfa] 2 puff INHALATION Q4H PRN PRN 02/09/14 Fenofibrate [Lofibra] 160 mg PO QHS 02/09/14 Hydrochlorothiazide 25 mg PO DAILY 02/09/14 Lansoprazole [Prevacid] 30 mg PO DAILY 02/09/14 Metformin HCl [Glucophage] 1,000 mg PO BIDCM 02/09/14 Ropinirole HCl [Requip] 3 - 6 mg PO QHS 02/09/14 traMADol [Ultram] 50 mg PO Q6H PRN PRN #8 tablet 04/09/14 Exenatide [Luis ([facility])] 10 mcg SC BIDAC 11/30/16 Losartan Potassium [Cozaar] 50 mg PO DAILY 11/30/16 Sertraline HCl [Zoloft] 200 mg PO DAILY 11/30/16 Atorvastatin Calcium [Lipitor] 40 mg PO QHS 12/04/16 trospium ER 60 mg capsule,extended release 24 hr 60 mg PO QAM 09/07/17 Dicyclomine HCl [Bentyl] 20 mg PO TIDAC #20 capsule 12/13/17 Furosemide [Lasix] 20 mg PO DAILY 12/13/17 Ondansetron [Zofran Odt] 4 mg PO Q8H PRN PRN #10 tablet 12/13/17 Potassium Chloride [K-Dur] 20 meq PO BID 12/22/17 Clotrimazole [Lotrimin] 1 applicatio TOPICAL BID 7 Days tube 12/23/17 Metronidazole [Flagyl] 500 mg PO TID #40 tab 12/23/17 Warfarin [Coumadin] 2.5 mg PO DAILY #0 12/23/17 The following prescriptions were given: Clotrimazole [Lotrimin] 1 applicatio TOPICAL BID 7 Days tube Metronidazole [Flagyl] 500 mg PO TID #40 tab Primary Care Physician: Sukhdeep Matthews DO [Primary Care Provider] - Please follow up with your Primary Care Physician in: 1 week.
--- NOTE | 2017-12-23 13:08 | PCM.DC.SUM ---
Discharge Date and Diagnosis Date of Admission: 12/21/17 Date of Discharge: 12/23/17 - Primary Discharge Diagnosis #1 acute C. difficile colitis. #2 hypokalemia/hypomagnesemia. - Secondary Discharge Diagnosis Chronic Problems (Last Updated 09/07/17 @ 14:31 by Lor Sahu) Factor V Leiden (Chronic) HLD (hyperlipidemia) (Chronic) HTN (hypertension) (Chronic) Diabetes mellitus (Chronic) DVT (deep venous thrombosis) (Chronic) Pulmonary emboli (Chronic) 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 syndrome (Chronic) Hospital Course and Treatment Imaging Results: Clinical Impression(s) from Imaging Studies Abdomen/Pelvis CT 12/21/17 17:47 IMPRESSION: No acute abnormality Hepatomegaly and nonspecific fatty infiltration of the liver. Status post cholecystectomy and appendectomy. small left ovarian cyst Multiple other findings as above Electronically Signed: Eleazar Venegas MD at 20:36 EDT , Service support , Chest X-Ray 12/21/17 20:50 IMPRESSION: Elevated right hemidiaphragm and mild right basilar atelectasis Electronically Signed: Eleazar Venegas MD at 21:29 EDT , Service support , Operations: None Procedures: None Summary of Care Provided: Patient seen and examined on the day of discharge and appeared to be stable to be discharged home. He had one more episode of diarrhea this morning, loose stool without blood. She has no more abdominal pain, nausea vomiting. She has been afebrile. Her vital signs are stable. - Physical Exam General: Alert, Oriented x3, Cooperative, No apparent distress. HEENT: Atraumatic, PERRLA, EOMI. Neck: Supple, No JVD, Negative Carotid Bruits, Trachea Midline, Thyroid Normal. Lungs: Clear to auscultation, Normal air movement, No rhonchi, No wheeze, No rales. Cardiovascular: Regular rate, Regular Rhythm, Normal S1, Normal S2, PMI Normal. Abdomen: Bowel Sounds Present, Soft, Non Tender, Non-Distended, obese, no Hepato-splenomegaly. Extremities: No clubbing, No cyanosis, No edema Skin: No rashes, No breakdown Neurological: Neuro grossly intact Vital Signs are stable. Hospital course: The patient is a 62 year old F admitted because of abdominal pain, nausea and diarrhea and she was found to have significant leukocytosis and her stool was positive for C. difficile DNA. She was diagnosed with acute C. difficile colitis. She was treated with IV fluids and initially, started on empiric IV ciprofloxacin and Flagyl. CT scan abdomen and pelvis with contrast revealed no acute abnormality, showed hepatomegaly with fatty infiltration of the liver and small left ovarian cyst. Stool for C. difficile came back positive for toxigenic C. difficile DNA. Patient was switched from IV Flagyl to oral Flagyl for acute C. difficile colitis. Patient was on Keflex 1 week before admission which is likely the predisposing factor for the acute C. difficile infection. Her potassium and magnesium were low and were replaced and corrected. With laser therapy, patient symptoms improved and she had no more abdominal pain, nausea vomiting and she was able to tolerate diet. Diarrhea improved. Her white blood cell count returned back to normal. She was on Coumadin for history of factor V Leiden with history of DVTs and PEs. Her INR was therapeutic. Patient discharged home in a stable medical condition, discharged on Flagyl 500 mg p.o. 3 times daily for 14 days of treatment, requested to not take Coumadin tonight because INR is 3.2, recommended to resume taking Coumadin tomorrow night and do blood work of time and INR on Sunday morning, plan to follow-up with PCP in 1 week. Discharge Activity: Return to Normal Activity Weight Bearing Status: Full weight bearing Call your doctor if you observe: Fever of 101 or Higher, Shortness of breath, Dizziness, Fainting spells, Chest pain, Increased palpitations (irregular heartbeat), Uncontrolled pain Home Medications: Medications to take at Discharge Albuterol IH (ProAir) [Proair Hfa] 2 puff INHALATION Q4H PRN PRN 02/09/14 Fenofibrate [Lofibra] 160 mg PO QHS 02/09/14 Hydrochlorothiazide 25 mg PO DAILY 02/09/14 Lansoprazole [Prevacid] 30 mg PO DAILY 02/09/14 Metformin HCl [Glucophage] 1,000 mg PO BIDCM 02/09/14 Ropinirole HCl [Requip] 3 - 6 mg PO QHS 02/09/14 traMADol [Ultram] 50 mg PO Q6H PRN PRN #8 tablet 04/09/14 Exenatide [Byetta ([facility])] 10 mcg SC BIDAC 11/30/16 Losartan Potassium [Cozaar] 50 mg PO DAILY 11/30/16 Sertraline HCl [Zoloft] 200 mg PO DAILY 11/30/16 Atorvastatin Calcium [Lipitor] 40 mg PO QHS 12/04/16 trospium ER 60 mg capsule,extended release 24 hr 60 mg PO QAM 09/07/17 Dicyclomine HCl [Bentyl] 20 mg PO TIDAC #20 capsule 12/13/17 Furosemide [Lasix] 20 mg PO DAILY 12/13/17 Ondansetron [Zofran Odt] 4 mg PO Q8H PRN PRN #10 tablet 12/13/17 Potassium Chloride [K-Dur] 20 meq PO BID 12/22/17 Clotrimazole [Lotrimin] 1 applicatio TOPICAL BID 7 Days tube 12/23/17 Metronidazole [Flagyl] 500 mg PO TID #40 tab 12/23/17 Warfarin [Coumadin] 2.5 mg PO DAILY #0 12/23/17 Following Prescrptions Were Given to Patient: Clotrimazole [Lotrimin] 1 applicatio TOPICAL BID 7 Days tube Metronidazole [Flagyl] 500 mg PO TID #40 tab Primary Care Physician: Sukhdeep Matthews DO [Primary Care Provider] - Please follow up with your Primary Care Physician in: 1 week. Patient Instructions: Clostridium difficile Infection Disposition: Home Minutes spent on discharge:: 32 Patient Condition:: Stable Medical Necessity - Tobacco Use Smoking Status: Never smoker Meaningful Use Info Meaningful Use Diagnoses (Choose all that apply): None applicable Code Visit Inpatient E&M: 82876 Disch Hosp
--- NOTE | 2017-12-23 13:13 | DS.PCM_ITS ---
Discharge Date and Diagnosis Date of Admission: 12/21/17 Date of Discharge: 12/23/17 - Primary Discharge Diagnosis #1 acute C. difficile colitis. #2 hypokalemia/hypomagnesemia. - Secondary Discharge Diagnosis Chronic Problems (Last Updated 09/07/17 @ 14:31 by Lor Sahu) Factor V Leiden (Chronic) HLD (hyperlipidemia) (Chronic) HTN (hypertension) (Chronic) Diabetes mellitus (Chronic) DVT (deep venous thrombosis) (Chronic) Pulmonary emboli (Chronic) 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 syndrome (Chronic) Hospital Course and Treatment Imaging Results: Clinical Impression(s) from Imaging Studies Abdomen/Pelvis CT 12/21/17 17:47 IMPRESSION: No acute abnormality Hepatomegaly and nonspecific fatty infiltration of the liver. Status post cholecystectomy and appendectomy. small left ovarian cyst Multiple other findings as above Electronically Signed: Eleazar Venegas MD at 20:36 EDT , Service support , Chest X-Ray 12/21/17 20:50 IMPRESSION: Elevated right hemidiaphragm and mild right basilar atelectasis Electronically Signed: Eleazar Venegas MD at 21:29 EDT , Service support , Operations: None Procedures: None Summary of Care Provided: Patient seen and examined on the day of discharge and appeared to be stable to be discharged home. He had one more episode of diarrhea this morning, loose stool without blood. She has no more abdominal pain, nausea vomiting. She has been afebrile. Her vital signs are stable. - Physical Exam General: Alert, Oriented x3, Cooperative, No apparent distress. HEENT: Atraumatic, PERRLA, EOMI. Neck: Supple, No JVD, Negative Carotid Bruits, Trachea Midline, Thyroid Normal. Lungs: Clear to auscultation, Normal air movement, No rhonchi, No wheeze, No rales. Cardiovascular: Regular rate, Regular Rhythm, Normal S1, Normal S2, PMI Normal. Abdomen: Bowel Sounds Present, Soft, Non Tender, Non-Distended, obese, no Hepato -splenomegaly. Extremities: No clubbing, No cyanosis, No edema Skin: No rashes, No breakdown Neurological: Neuro grossly intact Vital Signs are stable. Hospital course: The patient is a 62 year old F admitted because of abdominal pain, nausea and diarrhea and she was found to have significant leukocytosis and her stool was positive for C. difficile DNA. She was diagnosed with acute C. difficile colitis. She was treated with IV fluids and initially, started on empiric IV ciprofloxacin and Flagyl. CT scan abdomen and pelvis with contrast revealed no acute abnormality, showed hepatomegaly with fatty infiltration of the liver and small left ovarian cyst. Stool for C. difficile came back positive for toxigenic C. difficile DNA. Patient was switched from IV Flagyl to oral Flagyl for acute C. difficile colitis. Patient was on Keflex 1 week before admission which is likely the predisposing factor for the acute C. difficile infection. Her potassium and magnesium were low and were replaced and corrected. With laser therapy, patient symptoms improved and she had no more abdominal pain, nausea vomiting and she was able to tolerate diet. Diarrhea improved. Her white blood cell count returned back to normal. She was on Coumadin for history of factor V Leiden with history of DVTs and PEs. Her INR was therapeutic. Patient discharged home in a stable medical condition, discharged on Flagyl 500 mg p.o. 3 times daily for 14 days of treatment, requested to not take Coumadin tonight because INR is 3.2, recommended to resume taking Coumadin tomorrow night and do blood work of time and INR on Sunday morning, plan to follow-up with PCP in 1 week. Discharge Activity: Return to Normal Activity Weight Bearing Status: Full weight bearing Call your doctor if you observe: Fever of 101 or Higher, Shortness of breath, Dizziness, Fainting spells, Chest pain, Increased palpitations (irregular heartbeat), Uncontrolled pain Home Medications: Medications to take at Discharge Albuterol IH (ProAir) [Proair Hfa] 2 puff INHALATION Q4H PRN PRN 02/09/14 Fenofibrate [Lofibra] 160 mg PO QHS 02/09/14 Hydrochlorothiazide 25 mg PO DAILY 02/09/14 Lansoprazole [Prevacid] 30 mg PO DAILY 02/09/14 Metformin HCl [Glucophage] 1,000 mg PO BIDCM 02/09/14 Ropinirole HCl [Requip] 3 - 6 mg PO QHS 02/09/14 traMADol [Ultram] 50 mg PO Q6H PRN PRN #8 tablet 04/09/14 Exenatide [Byetta ([facility])] 10 mcg SC BIDAC 11/30/16 Losartan Potassium [Cozaar] 50 mg PO DAILY 11/30/16 Sertraline HCl [Zoloft] 200 mg PO DAILY 11/30/16 Atorvastatin Calcium [Lipitor] 40 mg PO QHS 12/04/16 trospium ER 60 mg capsule,extended release 24 hr 60 mg PO QAM 09/07/17 Dicyclomine HCl [Bentyl] 20 mg PO TIDAC #20 capsule 12/13/17 Furosemide [Lasix] 20 mg PO DAILY 12/13/17 Ondansetron [Zofran Odt] 4 mg PO Q8H PRN PRN #10 tablet 12/13/17 Potassium Chloride [K-Dur] 20 meq PO BID 12/22/17 Clotrimazole [Lotrimin] 1 applicatio TOPICAL BID 7 Days tube 12/23/17 Metronidazole [Flagyl] 500 mg PO TID #40 tab 12/23/17 Warfarin [Coumadin] 2.5 mg PO DAILY #0 12/23/17 Following Prescrptions Were Given to Patient: Clotrimazole [Lotrimin] 1 applicatio TOPICAL BID 7 Days tube Metronidazole [Flagyl] 500 mg PO TID #40 tab Primary Care Physician: Sukhdeep Matthews DO [Primary Care Provider] - Please follow up with your Primary Care Physician in: 1 week. Patient Instructions: Clostridium difficile Infection Disposition: Home Minutes spent on discharge:: 32 Patient Condition:: Stable Medical Necessity - Tobacco Use Smoking Status: Never smoker Meaningful Use Info Meaningful Use Diagnoses (Choose all that apply): None applicable Code Visit Inpatient E&M: 55401 Disch Hosp
== END 2017-12-23 10:41 | disposition home or self-care (01) | DRG 372 ==
LOC: ED 20:43 → MS3 22:44
PROVIDERS: Admitting Provider Internal Medicine; Emergency Provider Emergency Medicine; Family Provider Family Medicine; PCP Family Medicine; Visit Provider Hospitalist
DX: A04.72 Enterocolitis due to Clostridium difficile, not specified as recurrent (principal); D68.51 Activated protein C resistance; E83.42 Hypomagnesemia; E11.9 Type 2 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 without complications; E78.5 Hyperlipidemia, unspecified; E87.6 Hypokalemia; I10 Essential (primary) hypertension; Z72.0 Tobacco use; Z86.711 Personal history of pulmonary embolism; Z86.718 Personal history of other venous thrombosis and embolism; I87.009 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 syndrome without complications of unspecified extremity; Z79.84 Long term (current) use of oral hypoglycemic drugs; Z79.82 Long term (current) use of aspirin; Z79.899 Other long term (current) drug therapy; Z79.01 Long term (current) use of anticoagulants
CPT/HCPCS: 36415; 71045; 74177; 80048; 80076; 81001; 82962; 83605; 83690; 83735; 85025; 85610; 87040; 87086; 87088; 87493; 87506; 94762; 97802; 99282; J7030; J7040; Q9967; A4216; J0744; J2405

== ENCOUNTER → 2017-12-25 13:40 | Outpatient (CLI) | payer MEDICARE, SELFPAY | PROVIDERS: Family Provider Family Medicine; PCP Family Medicine; Visit Provider Family Medicine | DX: E11.9 Type 2 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 without complications (principal); N39.0 Urinary tract infection, site not specified; Z51.81 Encounter for therapeutic drug level monitoring ==

== ENCOUNTER → 2017-12-25 13:50 | Outpatient (CLI) | payer MEDICARE, SELFPAY ==
[2017-12-25 16:06] LABS: Prothrombin Time (Protime)PT. 22.8 SECONDS (11.7-14.9)
== END ==
PROVIDERS: Family Provider Family Medicine; PCP Family Medicine; Visit Provider Hospitalist
DX: D68.51 Activated protein C resistance (principal); Z79.01 Long term (current) use of anticoagulants
CPT/HCPCS: 36415; 85610

== ENCOUNTER → 2018-02-01 09:47 | Outpatient (CLI) | payer MEDICARE, SELFPAY ==
[2018-02-01 12:11] LABS: Absolute Lymphocyte Count 2.48 X10^3/ul (0.83-4.51); Absolute Neutrophil Count 4.3 X10^3/uL (2.0-7.7); Basophil# 0.01 X10^3/uL; Basophil% 0.1 % (0-1); Eosinophil# 0.17 X10^3/uL; Eosinophils% 2.3 % (0-5); Hematocrit 39.1 % (37-47); Hemoglobin 12.3 g/dl (12.0-15.0); Lymphocyte # 2.48 X10^3/ul (4.0); Lymphocyte % 33.8 % (19-41); Mean Corp Hgb Conc 31.5 g/gl (32-36); Mean Corpuscular Hgb 26.5 pg (27.0-32.0); Mean Corpuscular Volume 84.3 fL (81-99); Mean Platelet Vol. 9.5 fl (6.2-12.0); Monocyte# 0.35 X10^3/uL; Monocyte% 4.8 % (0-10); Neutrophil # 4.31 X10^3/uL (2.7-7.7); Neutrophil % 58.7 % (47-70); POSITIVE COUNT NO; POSITIVE DIFFERENTIAL NO; POSITIVE MORPHOLOGY NO; Platelet Count 434 K/mm3 (150-450); RBC Distribution Width CV 16.6 % (11.6-14.6); RBC Distribution Width SD 51.4 fl (35.1-43.9); Red Blood Count 4.64 M/mm3 (4.2-5.4); White Blood Count 7.3 K/mm3 (4.4-11.0)
[2018-02-01 12:35] LABS: AST(SGOT) 21 U/L (15-37); Alanine Aminotransfer ALT/SGPT 29 U/L (13-56); Albumin, Serum 3.8 g/dL (3.2-5.0); Alkaline Phosphatase 61 U/L (45-117); Anion Gap 7 (5-15); BUN 14 mg/dL (7-18); BUN/Creat Ratio 20.4 RATIO (10-20); Calcium,Total 9.1 mg/dL (8.5-10.1); Chloride 103 mmol/L (98-107); Cholesterol 97 mg/dL (200); Creatinine, Serum 0.69 mg/dL (0.55-1.02); EST Glomerular Filtration Rate 92 mL/min (>60); Est Glom Filt Rate - Afr Amer 111 mL/min (>60); Globulin 3.7 g/dL (2.2-4.2); Glucose 122 mg/dL (74-106); High Density Lipoprotein 45 mg/dL; Potassium 3.8 mmol/L (3.5-5.1); Protein, Total 7.5 g/dL (6.4-8.2); Sodium Level 139 mmol/L (136-145); Triglycerides 129 mg/dL; Very Low Density Lipoprotein 26 mg/dL (5-40)
[2018-02-01 12:40] LABS: Hemoglobin A1c 7.5 % (4.2-6.3)
[2018-02-01 18:33] LABS: Microalbumin:Creatinine Ratio 42.2 mg/g CRE (<30 mg/g CRE)
[2018-02-01 19:04] LABS: Color, Urine Yellow (Yellow); Glucose, Dipstick NEGATIVE (Normal); Ketone-Dipstick 5 mg/dl (Negative); Leukocyte Esterase-Dipstick 500 /ul (Negative); Nitrite-Dipstick Positive (Negative); Occult Blood-Urine 25 /ul (Negative); Protein-Dipstick 30 mg/dl (Negative); Specific Gravity, Urine 1.025 (1.002-1.030); Urine Bilirubin Dipstick Negative (Negative); Urine Clarity Cloudy (Clear); Urine Urobilinogen Normal (Normal)
[2018-02-01 19:07] LABS: Red Blood Cells-Urine 0-5 SEEN /hpf (0-5); White Blood Cells 50-100 SEEN /hpf (0-5)
[2018-02-01 19:08] LABS: Bacteria 4+ /hpf (None Seen); Mucous, Urine 1+ /hpf (<or=2+); Squamous Epithelial Cells - UA 25-50 SEEN /hpf (5-10)
[2018-02-02 11:51] LABS: Hep C Antibodies <0.1 s/co ratio (0.0-0.9)
== END ==
PROVIDERS: Family Provider Family Medicine; PCP Family Medicine; Visit Provider Family Medicine
DX: R53.83 Other fatigue (principal); Z11.9 Encounter for screening for infectious and parasitic diseases, unspecified; E11.9 Type 2 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 without complications; N39.0 Urinary tract infection, site not specified; Z51.81 Encounter for therapeutic drug level monitoring
CPT/HCPCS: 36415; 80053; 80061; 81001; 82043; 82570; 83036; 85025; 86803

== ENCOUNTER → 2018-02-14 13:45 | Outpatient (CLI) | payer MEDICARE, SELFPAY ==
--- NOTE | 2018-02-14 13:49 | RAD_ITS ---
STUDY: X-RAY CHEST REASON FOR EXAM: Female, 62 years old. Shortness of breath TECHNIQUE: PA and lateral chest COMPARISON: 12/21/2017 FINDINGS: The lungs are clear and expanded. Normal cardiomediastinal silhouette, tessie and pleural margins. No acute osseous or upper abdominal process. Scoliosis. Prior cholecystectomy. RAD/Chest PA and Lateral IMPRESSION: No acute cardiopulmonary process. Electronically Signed: Angel Alexander, at 18:54 EDT Tel , Service support ,
== END ==
PROVIDERS: Family Provider Family Medicine; PCP Family Medicine; Visit Provider Family Medicine
DX: R06.02 Shortness of breath (principal)
CPT/HCPCS: 71046

== ENCOUNTER → 2018-04-03 20:16 | Outpatient (CLI) | payer MEDICARE, SELFPAY | PROVIDERS: Family Provider Family Medicine; PCP Family Medicine; Visit Provider Family Medicine | DX: G47.33 Obstructive sleep apnea (adult) (pediatric) (principal) | CPT/HCPCS: 95811 ==

== ENCOUNTER 2018-04-05 10:55 | Outpatient (RCR) | payer MEDICARE, SELFPAY | END 2018-04-05 23:59 | LOC: NS 10:55 | PROVIDERS: Family Provider Family Medicine; PCP Family Medicine; Visit Provider Family Medicine | DX: E11.9 Type 2 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 without complications (principal); Z71.3 Dietary counseling and surveillance | CPT/HCPCS: 97802 ==

== ENCOUNTER 2018-04-09 15:21 | Outpatient (RCR) | payer MEDICARE, SELFPAY ==
--- NOTE | 2018-04-09 16:12 | HP.PTEVAL_ITS ---
Patient's Visit Information MARIO MONROE is a 62 year old F referred to Physical Therapy by Sukhdeep Matthews DO with a diagnosis of BPPV. Date of Evaluation: 04/09/18 Physical Therapist: Shaunna Hardy - Visit Plan Frequency: PRN Duration: 4 Weeks Plan: Issued MCKEE-Daroff exercises per pt request to see if that helps with some of her dizziness. Pt will call in if she feels that her dizziness increases or she has a bad day with it. - Subjective Subjective: Pt reports that she is better now (she had to cancel once). She gets dizzy if she lays down or get up or sitting in a chair and move the wrong way or bending downto pick something up. It started about 1 month ago....had it awhile before saw Dr cause she thought it was allergy stuff. SHe has had this in the past and feels like she gets it in the spring and in the fall. When she rolls in bed to the L is when she gets dizzy. She feels that it last 5 -10 seconds. She reports that she is spinning. She has had no falls. Pt has no ear pain. Pt reports that her balance is sometimes ok and sometimes not. - Pain R knee pain Pain Intensity (Out of 10): 8 - Objective -Hallpike B. Pt may have had a slight bit of dizziness each direction but nothing like she has been complaining of. -Roll test B. -nystagmus or symptoms with saccades or pursuit - Rehabilitation Potential Rehabilitation Potential: Good - Anticipated Interventions Patient/Client Instruction: Educate patient on: Condition, Plan of Care For the Purpose of:: To improve gait and locomotor functions, To improve safety with gait Therapeutic Exercise to Include: Balance training, Postural training, Gait and locomotor training For the Purpose of:: To improve gait and locomotor functions, To improve balance Thank you for the opportunity to evaluate your patient. For Medicare and Medicare HMO plans, please review the plan of care and approve it. It will need to be FAXED BACK to us at [phone] for Medicare purposes. Please let me know if there are questions or concerns regarding this plan of care. Physician Signature: Date:
--- NOTE | 2018-06-05 17:51 | HP.PT.NRP ---
HP - Discharge Summary (1) - Patient Information MARIO MONORE was seen in my office for initial evaluation on 04/09/18. The following Plan of Care was established for this patient: Initial Frequency: PRN Initial Duration: 4 Weeks - Anticipated Interventions Patient/Client Instruction: Educate patient on: Condition, Plan of Care For the Purpose of:: To improve gait and locomotor functions, To improve safety with gait Therapeutic Exercise to Include: Balance training, Postural training, Gait and locomotor training For the Purpose of:: To improve gait and locomotor functions, To improve balance This patient was last seen in our office 04/09/18. Pertinent comments regarding their Physical therapy will appear below: DC PT. Pt was to call in if she felt worse with her exercises and did not do so therefore DC PT At this point I will be discontinuing this patient from physical therapy. I would be happy to see this patient again in the future if found appropriate by the physician. Thank you! Shaunna Hardy
== END 2018-04-09 19:00 | disposition home or self-care (01) ==
LOC: PT 15:21
PROVIDERS: Family Provider Family Medicine; PCP Family Medicine; Visit Provider Family Medicine
DX: H81.10 Benign paroxysmal vertigo, unspecified ear (principal)
CPT/HCPCS: 97161

== ENCOUNTER 2018-04-25 17:04 | Outpatient (RCR) | payer MEDICARE, SELFPAY | END 2018-05-24 23:59 | LOC: NS 17:04 | PROVIDERS: Family Provider Family Medicine; PCP Family Medicine; Visit Provider Family Medicine | DX: E11.9 Type 2 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 without complications (principal); Z71.3 Dietary counseling and surveillance ==

== ENCOUNTER → 2018-05-03 10:29 | Outpatient (CLI) | payer MEDICARE, SELFPAY | PROVIDERS: Family Provider Family Medicine; PCP Family Medicine; Visit Provider Family Medicine | DX: R30.0 Dysuria (principal) | CPT/HCPCS: 87077; 87086; 87088; 87186 ==

== ENCOUNTER → 2018-08-19 11:23 | Outpatient (CLI) | payer MEDICARE, SELFPAY ==
[2018-08-19 16:01] LABS: Absolute Lymphocyte Count 2.26 X10^3/ul (0.83-4.51); Absolute Neutrophil Count 4.1 X10^3/uL (2.0-7.7); Basophil# 0.01 X10^3/uL; Basophil% 0.1 % (0-1); Eosinophil# 0.17 X10^3/uL; Eosinophils% 2.4 % (0-5); Hematocrit 37.8 % (37-47); Hemoglobin 11.6 g/dl (12.0-15.0); Lymphocyte # 2.26 X10^3/ul (4.0); Lymphocyte % 32.5 % (19-41); Mean Corp Hgb Conc 30.7 g/gl (32-36); Mean Corpuscular Hgb 25.6 pg (27.0-32.0); Mean Corpuscular Volume 83.3 fL (81-99); Mean Platelet Vol. 9.4 fl (6.2-12.0); Monocyte# 0.36 X10^3/uL; Monocyte% 5.2 % (0-10); Neutrophil # 4.13 X10^3/uL (2.7-7.7); Neutrophil % 59.5 % (47-70); Platelet Count 419 K/mm3 (150-450); RBC Distribution Width CV 16.9 % (11.6-14.6); RBC Distribution Width SD 51.2 fl (35.1-43.9); Red Blood Count 4.54 M/mm3 (4.2-5.4)
[2018-08-19 16:03] LABS: POSITIVE COUNT NO; POSITIVE DIFFERENTIAL NO; POSITIVE MORPHOLOGY NO
[2018-08-19 16:24] LABS: ALB/GLOB Ratio 1.1 RATIO (0.9-2.4); AST(SGOT) 19 U/L (15-37); Alanine Aminotransfer ALT/SGPT 26 U/L (13-56); Albumin, Serum 3.7 g/dL (3.2-5.0); Alkaline Phosphatase 63 U/L (45-117); Anion Gap 12 (5-15); BUN 17 mg/dL (7-18); BUN/Creat Ratio 27.3 RATIO (10-20); Calcium,Total 8.7 mg/dL (8.5-10.1); Chloride 104 mmol/L (98-107); Cholesterol 96 mg/dL (200); Creatinine, Serum 0.62 mg/dL (0.55-1.02); EST Glomerular Filtration Rate 103 mL/min (>60); Est Glom Filt Rate - Afr Amer 124 mL/min (>60); Globulin 3.3 g/dL (2.2-4.2); Glucose 110 mg/dL (74-106); High Density Lipoprotein 49 mg/dL; Potassium 3.7 mmol/L (3.5-5.1); Sodium Level 141 mmol/L (136-145); Triglycerides 102 mg/dL; Very Low Density Lipoprotein 20 mg/dL (5-40)
[2018-08-19 16:25] LABS: Hemoglobin A1c 7.7 % (4.2-6.3)
[2018-08-19 17:18] LABS: Microalbumin,Random Urine 46.9 mg/L (NO RANGE EST.); Microalbumin:Creatinine Ratio 29.7 mg/g CRE (<30 mg/g CRE)
== END ==
LOC: LAB.FUTURE 09-08 10:00 → BFHLAB 03-12 11:15
PROVIDERS: Family Provider Family Medicine; PCP Family Medicine; Visit Provider Family Medicine
DX: E11.9 Type 2 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 without complications (principal); R80.9 Proteinuria, unspecified; I10 Essential (primary) hypertension; D68.2 Hereditary deficiency of other clotting factors; E78.5 Hyperlipidemia, unspecified
CPT/HCPCS: 36415; 80053; 80061; 82043; 82570; 83036; 85025

== ENCOUNTER 2018-08-19 13:52 | Emergency (ER) | payer MEDICARE, SELFPAY ==
[2018-08-19 13:55] VITALS: BP 172/96; PULSE 94; RESP 16; TEMP 36.8; O2SAT 96; BMI 48.0
--- NOTE | 2018-08-19 15:12 | EKG12_ITS ---
Test Reason : SOB Blood Pressure : / mmHG Vent. Rate : 081 BPM Atrial Rate : 081 BPM P-R Int : 158 ms QRS Dur : 094 ms QT Int : 374 ms P-R-T Axes : 044 020 026 degrees QTc Int : 434 ms Normal sinus rhythm Normal ECG Confirmed by JOE CEDENO, SANDI ([id number]), index editor KARLIE PRITCHARD ([id number] on 08/21/2018 4:22:09 PM Referred By: KAREN Confirmed By:SANDI DIAZ MD
--- NOTE | 2018-08-19 15:16 | ED.DCSUM_ITS ---
- ER Visit Summary Date of Service: 08/19/18 Chief Complaint: Cough, shortness of breath History of Present Illness: The patient is a 62 F presents to the emergency department coughing shortness of breath. Patient has a history of chronic CHF. She also has a history of pulmonary embolus and is on Coumadin. For the past 7 or 10 days, she has had gradual worsening shortness of breath. She had cough with scant sputum. She denies fevers or chills. The patient has tried nebulizer breathing treatments with some improvement. She denies any chest pain. She denies orthopnea or weight gain. She denies any increasing lower extremity swelling. She denies any recent change in diet or change medications. Physical Examination: Vital signs reviewed General: Well-nourished, well-developed Head: Normocephalic, atraumatic Eyes: Pupils equal and reactive, extraocular muscles intact Neck, supple, no lymphadenopathy Heart: Regular rate and rhythm Respiratory: No distress, is diminished with scattered wheezes Abdomen: Soft, nontender, nondistended, no peritoneal signs Back: Nontender Extremities: Nontender, no edema, no cords Skin: Normal color no rash Neuro: Alert and oriented, no focal or lateralizing deficits Test Results: [] Emergency Department Course and Treatment: The patient presents with cough and wheezing. She has has no evidence of volume overload. There is no crackles in her lungs. She has no focal change in lung sounds. Her EKG was unremarkable. Chest x-ray shows no evidence of volume overload or definitive infiltrate. Her labs are unremarkable. With nebulized breathing treatments and steroids her aeration is improved. I do feel that she is safe for outpatient therapy. She has not hypoxic. She has no tachypnea. I am going to treat her with prednisone and doxycycline. She is comfortable this plan of care and will be discharged home. Treatment Plan: [] Disposition: Discharge Impression: 1. Acute bronchitis This note was generated with [employer] dictation software. It may contain incorrect words, spelling, and punctuation that were not noted in review of the chart prior to signing ED Disposition - Plan for ED Patient: Chief Complaint: Cough Instructions: ED Upper Resp Infec Abx Tx Prescriptions: Prednisone 10 mg PO UD #33 tab Doxycycline Monohydrate 100 mg PO BID #20 cap Referrals: Sukhdeep Matthews DO [Primary Care Provider] -
[2018-08-19 15:28] VITALS: PULSE 82; RESP 18
[2018-08-19] MEDS: Ipratropium/Albuterol Sulfate 3 ML AMPUL.NEB INHALATION (15:28)
[2018-08-19] MEDS: Albuterol 2.5 MG/3 ML VIAL.NEB. INHALATION ×2 (15:28)
[2018-08-19] MEDS: MethylPREDNISolone 125 MG/2 ML Vial IV (15:28)
[2018-08-19 15:46] LABS: Absolute Lymphocyte Count 1.57 X10^3/ul (0.83-4.51); Absolute Neutrophil Count 5.2 X10^3/uL (2.0-7.7); Basophil# 0.02 X10^3/uL; Basophil% 0.3 % (0-1); Eosinophils% 2.7 % (0-5); Hematocrit 37.5 % (37-47); Hemoglobin 11.6 g/dl (12.0-15.0); Lymphocyte # 1.57 X10^3/ul (4.0); Lymphocyte % 21.3 % (19-41); Mean Corp Hgb Conc 30.9 g/gl (32-36); Mean Corpuscular Hgb 25.7 pg (27.0-32.0); Mean Corpuscular Volume 83.1 fL (81-99); Mean Platelet Vol. 9.4 fl (6.2-12.0); Monocyte# 0.34 X10^3/uL; Monocyte% 4.6 % (0-10); Neutrophil # 5.22 X10^3/uL (2.7-7.7); Neutrophil % 70.8 % (47-70); Platelet Count 434 K/mm3 (150-450); RBC Distribution Width CV 16.6 % (11.6-14.6); RBC Distribution Width SD 49.3 fl (35.1-43.9); Red Blood Count 4.51 M/mm3 (4.2-5.4); White Blood Count 7.4 K/mm3 (4.4-11.0)
[2018-08-19 15:48] LABS: POSITIVE COUNT NO; POSITIVE DIFFERENTIAL NO; POSITIVE MORPHOLOGY NO
[2018-08-19 15:49] LABS: International Normalized Ratio 1.6; Prothrombin Time (Protime)PT. 19.4 SECONDS (11.7-14.9)
[2018-08-19 16:22] LABS: Anion Gap 11 (5-15); BUN 16 mg/dL (7-18); BUN/Creat Ratio 23.1 RATIO (10-20); Chloride 106 mmol/L (98-107); Creatinine, Serum 0.69 mg/dL (0.55-1.02); EST Glomerular Filtration Rate 91 mL/min (>60); Est Glom Filt Rate - Afr Amer 110 mL/min (>60); Estimated Creatinine Clearance 72.06 ml/min; Glucose 147 mg/dL (74-106); Potassium 3.8 mmol/L (3.5-5.1); Sodium Level 144 mmol/L (136-145)
[2018-08-19 16:27] LABS: BNP,B-Type NATRIURETIC PEPTIDE 52.1 pg/mL (0-100)
--- NOTE | 2018-08-19 16:40 | RAD_ITS ---
STUDY: X-RAY CHEST REASON FOR EXAM: Female, 62 years old. Cough and shortness of breath. TECHNIQUE: PA and lateral views of the chest. COMPARISON: February 14, 2018 FINDINGS: There is no new focal consolidation. Normal size heart. Normal mediastinum and tessie. Normal visualized pulmonary arteries. Normal visualized aortic arch and descending thoracic aorta. There are diffuse degenerative changes of the visualized thoracic spine. Normal visualized ribs, clavicles, and shoulders. There is no demonstrated abnormality of the visualized soft tissue structures of the upper abdomen. RAD/Chest PA and Lateral IMPRESSION: No acute cardiopulmonary process. Electronically Signed: Mari Delacruz MD at 17:17 EST Tel , Service support ,
[2018-08-19 17:06] VITALS: BP 160/72; PULSE 99; RESP 22; O2SAT 96
--- OUTSIDE RECORDS SUMMARY | 2018-10-01 13:44 | XMS RPT_ITS ---
:1955 Author Organization OHIP Support Name Relationship Address Phone D Unavailable Unavailable Unavailable FER, DIEGO Unavailable [address] + [place] [address] FER, MISBAH Unavailable [address] [place] [address] D Unavailable Unavailable Unavailable FER, DIEGO Unavailable [address] + [place] [address] FER, MISBAH Unavailable [address] + [place] [address] D Unavailable Unavailable Unavailable FER, DIEGO Unavailable [address] + [place] [address] FER, MISBAH Unavailable [address] + [place] [address] D Unavailable Unavailable Unavailable FER, DIEGO Unavailable [address] + [place] [address] FER, MISBAH Unavailable [address] + [place] [address] D Unavailable Unavailable Unavailable FER, DIEGO Unavailable [address] + [place] [address] FER, MISBAH Unavailable [address] + [place] [address] D Unavailable Unavailable Unavailable FER, DIEGO Unavailable [address] + [place] [address] FER, MISBAH Unavailable [address] + [place] [address] D Unavailable Unavailable Unavailable FER, DIEGO Unavailable [address] + [place] [address] FER, MISBAH Unavailable [address] + [place] [address] D Unavailable Unavailable Unavailable FER, DIEGO Unavailable [address] + [place] [address] FER, MISBAH Unavailable [address] + [place] [address] D Unavailable Unavailable Unavailable GURINDER, MISBAH Unavailable [address] + [place] [address] FER, DIEGO Unavailable [address] + [place] [address] D Unavailable Unavailable Unavailable GURINDER, MISBAH Unavailable [address] + [place] [address] FER, DIEGO Unavailable [address] + [place] [address] D Unavailable Unavailable Unavailable GURINDER, MISBAH Unavailable [address] + [place] [address] FER, DIEGO Unavailable [address] + [place] [address] D Unavailable Unavailable Unavailable GURINDER, MISBAH Unavailable [address] + [place] [address] FER, DIEGO Unavailable [address] + [place] [address] D Unavailable Unavailable Unavailable GURINDER, MISBAH Unavailable [address] + [place] [address] FER, DIEGO Unavailable [address] + [place] [address] D Unavailable Unavailable Unavailable GURINDER, MISBAH Unavailable [address] + [place] [address] FER, DIEGO Unavailable [address] + [place] [address] D Unavailable Unavailable Unavailable GURINDER, MISBAH Unavailable [address] + [place] [address] FER, DIEGO Unavailable [address] + [place] [address] D Unavailable Unavailable Unavailable GURINDER, MISBAH Unavailable [address] + [place] [address] FER, DIEGO Unavailable [address] + [place] [address] D Unavailable Unavailable Unavailable GURINDER, MISBAH Unavailable [address] + [place] [address] FER, DIEGO Unavailable [address] + [place] [address] D Unavailable Unavailable Unavailable GURINDER, MISBAH Unavailable [address] + [place] [address] FER, DIEGO Unavailable [address] + [place] [address] D Unavailable Unavailable Unavailable GURINDER, MISBAH Unavailable [address] + [place] [address] FER, DIEGO Unavailable [address] + [place] [address] D Unavailable Unavailable Unavailable GURINDER, MISBAH Unavailable [address] + [place] [address] FER, DIEGO Unavailable [address] + [place] [address] D Unavailable Unavailable Unavailable GURINDER, MISBAH Unavailable [address] + [place] [address] FER, DIEGO Unavailable [address] + [place] [address] Care Team Providers Name Role Phone Sukhdeep Matthews Attending Unavailable Byron, Sukhdeep Primary Care Unavailable Sukhdeep Matthews Attending Unavailable Byron, Sukhdeep Primary Care Unavailable Le Abreu Attending Unavailable Le Abreu Referring Unavailable Byron, Sukhdeep Primary Care Unavailable Byron, Sukhdeep Primary Care Unavailable Sage Feliciano Attending Unavailable Sukhdeep Matthews Attending Unavailable Byron, Sukhdeep Primary Care Unavailable Byron, Sukhdeep Primary Care Unavailable Clau, Benjy Admitting Unavailable Alfredoelfah, Ghasem Attending Unavailable Clau, Benjy Admitting Unavailable Byron, Sukhdeep Primary Care Unavailable Clau, Benjy Consulting Unavailable Bob Cardoza Attending Unavailable Clau, Benjy Admitting Unavailable Ashelfah, Ghasem Attending Unavailable Byron, Sukhdeep Primary Care Unavailable Ashelfah, Ghasem Consulting Unavailable Clau, Benjy Admitting Unavailable Ashelfah, Ghasem Attending Unavailable Byron, Sukhdeep Primary Care Unavailable Ashelfah, Ghasem Consulting Unavailable Ashelfah, Ghasem Attending Unavailable Byron, Uskhdeep Primary Care Unavailable Byron, Sukhdeep Attending Unavailable Byron, Sukhdeep Primary Care Unavailable Seng Baez Attending Unavailable Seng Baez Referring Unavailable Byron, Sukhdeep Primary Care Unavailable Byron, Sukhdeep Attending Unavailable Byron, Sukhdeep Primary Care Unavailable Byron, Sukhdeep Attending Unavailable Byron, Sukhdeep Referring Unavailable Byron, Sukhdeep Primary Care Unavailable Byron, Sukhdeep Attending Unavailable Byron, Sukhdeep Primary Care Unavailable Byron, Sukhdeep Attending Unavailable Byron, Sukhdeep Primary Care Unavailable Byron, Sukhdeep Attending Unavailable Byron, Sukhdeep Primary Care Unavailable Byron, Sukhdeep Attending Unavailable Byron, Sukhdeep Primary Care Unavailable Byron, Sukhdeep Attending Unavailable Byron, Sukhdeep Primary Care Unavailable Byron, Sukhdeep Primary Care Unavailable Gabino Barraza Attending Unavailable Le Abreu Attending Unavailable Byron, Sukhdeep Referring Unavailable Byron, Sukhdeep Primary Care Unavailable PROBLEMS PROBLEMS DATE TYPE CONDITION / CODE ATTENDING STATUS SOURCE 08/19/2018 Unknown I10 - Essential ByronSukhdeep khan Active [facility] (primary) Community hypertension / Hospital I10(ICD-10) Repository 08/19/2018 Unknown E11.9 - Type 2 ByronSukhdeep khan Active [facility] 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 Community without Hospital complications / Repository E11.9(ICD-10) 08/19/2018 Unknown E78.5 - ByronSukhdeep khan Active [facility] Hyperlipidemia, Community unspecified / Hospital E78.5(ICD-10) Repository 08/19/2018 Unknown R80.9 - ByronSukhdeep khan Active [place] Proteinuria, Community unspecified / Hospital R80.9(ICD-10) Repository 08/19/2018 Unknown 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 / Hospital D68.2(ICD-10) Repository 05/03/2018 Unknown R30.0 - Dysuria / ByronSukhdeep khan Active [facility] R30.0(ICD-10) Community Hospital Repository 06/05/2018 Unknown H81.10 - Benign ByronSukhdeep shin Active [place] paroxysmal vertigo, Community unspecified ear / Hospital H81.10(ICD-10) Repository 04/05/2018 Unknown G47.33 - ByronSukhdeep khan Active [facility] Obstructive sleep Community apnea (adult) Hospital (pediatric) / Repository G47.33(ICD-10) 02/14/2018 Unknown R06.02 - Shortness Seng Baez Active [facility] of breath / Community R06.02(ICD-10) Hospital Repository 02/01/2018 Unknown N39.0 - Urinary Sukhdeep Matthews Active [facility] tract infection, Community site not specified Hospital / N39.0(ICD-10) Repository 02/01/2018 Unknown Z51.81 - Encounter Sukhdeep Matthews Active [facility] for therapeutic Community drug level Hospital monitoring / Repository Z51.81(ICD-10) 12/25/2017 Unknown R19.7 - Diarrhea, Ashelfah, Active [facility] unspecified / Ghasem Community R19.7(ICD-10) Hospital Repository 10/25/2017 Unknown Z12.31 - Encounter Le Abreu Active [place] for screening Community mammogram for Hospital malignant neoplasm Repository of breast / Z12.31(ICD-10) PROCEDURES PROCEDURES No Procedure Records FoundRESULTS RESULTS 12 LEAD ELECTROCARDIOGRAM Observed: 08/23/2018 Status: F Source: [place] 9:27 AM [facility] REPOSITORY [facility] Cardiovascular Services [address] [place] [address] 12 Lead EKG 08/19/18 1520 MR#: [id number] Acct: [id number] Name: HEAVEN MONROE Rep #: [id number] : 1955 62 From: Bernard Diaz MD Attending Dr: Status: DEP ER Ordering Dr: Gabino Barraza MD Date: 08/19/18 Location: ED Sex: F C Admitted: Test Reason : SOB Blood Pressure : / mmHG Vent. Rate : 081 BPM Atrial Rate : 081 BPM P-R Int : 158 ms QRS Dur : 094 ms QT Int : 374 ms P-R-T Axes : 044 020 026 degrees QTc Int : 434 ms Normal sinus rhythm Normal ECG Confirmed by JOE CEDENO, BERNARD ([id number]), editor farm journal KARLIE PRITCHARD ([id number]) on 08/21/2018 4:22:09 PM Referred By: KAREN Confirmed By:BERNARD DIAZ MD 08/21/18 2545 Date Bernard Diaz MD CC: Sukhdeep Matthews DO; Gabino Barraza MD Signed EMERGENCY DEPARTMENT Observed: 08/19/2018 Status: F Source: [place] SUMMARY 8:30 PM [facility] REPOSITORY [facility] Medical Records Department [address] [place] [address] Emergency Department Summary 08/19/18 1515 MR#: [id number] Acct: [id number] Name: HEAVEN MONROE Rep #: [id number] : 1955 62 From: Gabino Barraza MD PCP: Sukhdeep Matthews DO Status: DEP ER - ER Visit Summary Date of Service: 08/19/18 Chief Complaint: Cough, shortness of breath History of Present Illness: The patient is a 62 F presents to the emergency department coughing shortness of breath. Patient has a history of chronic CHF. She also has a history of pulmonary embolus and is on Coumadin. For the past 7 or 10 days, she has had gradual worsening shortness of breath. She had cough with scant sputum. She denies fevers or chills. The patient has tried nebulizer breathing treatments with some improvement. She denies any chest pain. She denies orthopnea or weight gain. She denies any increasing lower extremity swelling. She denies any recent change in diet or change medications. Physical Examination: Vital signs reviewed General: Well-nourished, well-developed Head: Normocephalic, atraumatic Eyes: Pupils equal and reactive, extraocular muscles intact Neck, supple, no lymphadenopathy Heart: Regular rate and rhythm Respiratory: No distress, is diminished with scattered wheezes Abdomen: Soft, nontender, nondistended, no peritoneal signs Back: Nontender Extremities: Nontender, no edema, no cords Skin: Normal color no rash Neuro: Alert and oriented, no focal or lateralizing deficits Test Results: [] Emergency Department Course and Treatment: The patient presents with cough and wheezing. She has has no evidence of volume overload. There is no crackles in her lungs. She has no focal change in lung sounds. Her EKG was unremarkable. Chest x- ray shows no evidence of volume overload or definitive infiltrate. Her labs are unremarkable. With nebulized breathing treatments and steroids her aeration is improved. I do feel that she is safe for outpatient therapy. She has not hypoxic. She has no tachypnea. I am going to treat her with prednisone and doxycycline. She is comfortable this plan of care and will be discharged home. Treatment Plan: [] Disposition: Discharge Impression: 1. Acute bronchitis This note was generated with Kreix dictation software. It may contain incorrect words, spelling, and punctuation that were not noted in review of the chart prior to signing ED Disposition - Plan for ED Patient: Chief Complaint: Cough Instructions: ED Upper Resp Infec Abx Tx Prescriptions: Prednisone 10 mg PO UD #33 tab Doxycycline Monohydrate 100 mg PO BID #20 cap Referrals: Sukhdeep Matthews, DO [Primary Care Provider] - What to do if you have Problems For any increased pain, shortness of breath, bleeding, nausea or vomiting, chest pain, or any unexpected problems, contact your Primary Care Provider. Call [facility] ([phone]) or report to the closest Emergency Room. Call 911 if necessary. 08/19/18 2030 <Electronically signed by Gabino Barraza MD> Date Gabino Barraza MD Cosigner Signature (If Indicated): Date CC: Sukhdeep Matthews DO BASIC METABOLIC Collected: 08/19/2018 Status: F Source: [place] PROFILE (BMP) 3:45 PM [facility] REPOSITORY TYPE CODE TESTS RESULT OUT OF RANGE REFERENCE UNITS LAB L501.0100 74-106 mg/dL High GLU 147 Result Comment: Fasting Glucose result greater than or equal to 126 mg/dL suggests DIABETES MELLITUS per A.D.A. criteria. Please note revised GLUCOSE reference range effective 2017. LAB L501.1000 7-18 mg/dL Normal BUN 16 LAB L501.1100 0.55-1.02 mg/dL Normal CREAT,SERUM 0.69 Result Comment: The validity of the calculated GFR AND GFRAA in patients over 70 years has not been determined. Clinical correlation is essential. LAB L501.1110 >60 mL/min Normal EST GFR 91 Result Comment: Non- GFR Calc LAB L501.1115 >60 mL/min Normal EST GFR - AA 110 Result Comment: GFR Calc LAB L501.1255 ml/min Normal Estimated CRCL 72.06 LAB L501.1300 10-20 RATIO High BUN/CRE 23.1 LAB L501.2200 8.5-10 mg/dL Normal .1 CA 9.0 LAB L501.5300 136-14 mmol/L Normal 5 NA 144 LAB L501.5600 3.5-5. mmol/L Normal 1 K 3.8 LAB L501.5900 98-107 mmol/L Normal CL 106 LAB L501.6100 21.0-3 mmol/L Normal 2.0 CO2 27.0 LAB L501.6200 5-15 Normal GAP 11 Performed By: #### L500.2500, L501.4010 #### [facility] [address] [facility] [address] [place], [place], [address] TROPONIN-I Collected: 08/19/2018 Status: F Source: [place] 3:45 PM [facility] REPOSITORY TYPE CODE TESTS RESULT OUT OF RANGE REFERENCE UNITS LAB L501.4010 <0.045 ng/mL Normal 0.016 TROPONIN-I Result Comment: TROPONIN-I EXPECTED VALUES <0.045 Negative 0.045 - 0.590 Consistent with Cardiac Damage > OR = 0.600 Critical Value Not every elevated troponin is indicative of UT. These values should be used with clinical judgement in examining the patient's clinical picture for diagnosis. To establish a diagnosis of UT versus myocardial injury, there must be a demonstrated rise and/or fall in the troponin values, in addition to ischemic symptoms, EKG changes, new regional wall motion abnormality, and/or angiographical evidence. PLEASE NOTE: REFERENCE RANGES EDITED 18 Performed By: #### L500.2500, L501.4010 #### [facility] [address] [place], [place], [address] CBC W/DIFF, AUTOMATED Collected: 08/19/2018 Status: F Source: [place] 3:28 PM [facility] REPOSITORY TYPE CODE TESTS RESULT OUT OF RANGE REFERENCE UNITS LAB L100.1000 4.4-11.0 K/mm3 Normal WBC 7.4 LAB L100.1200 4.2-5.4 M/mm3 Normal RBC 4.51 LAB L100.1300 12.0-15.0 g/dl Low HGB 11.6 LAB L100.1400 37-47 % Normal HCT 37.5 LAB L100.1500 81-99 fL Normal MCV 83.1 LAB L100.1600 27.0-32.0 pg Low MCH 25.7 LAB L100.1700 32-36 g/gl Low MCHC 30.9 LAB L100.1810 11.6-14.6 % High RDW CV 16.6 LAB L100.1820 35.1-43.9 fl High RDW SD 49.3 LAB L100.1900 150-450 K/mm3 Normal PLT 434 LAB L100.2000 6.2-12.0 fl Normal MPV 9.4 LAB L100.2100 47-70 % High NEUT% 70.8 LAB L100.2200 19-41 % Normal LY% 21.3 LAB L100.2300 0-10 % Normal MONO% 4.6 LAB L100.2400 0-5 % Normal EO% 2.7 LAB L100.2500 0-1 % Normal BASO% 0.3 LAB L100.2550 0.0-0.9 % Normal IM GRAN % 0.300 Result Comment: IG% - Immature Granulocytes (promyelocytes, myelocytes and metamyelocytes) > 1% indicates that a LEFT SHIFT is Present. LAB L100.2620 2.0-7.7 X10 3/uL Normal Absolute Neut 5.2 LAB L100.2720 0.83-4.51 X10 3/ul Normal Absolute Lymph 1.57 Performed By: #### L100.0100 #### [facility] [address] [place], [place], [address] PROTHROMBIN TIME W/INR Collected: 08/19/2018 Status: F Source: [place] 3:28 PM [facility] REPOSITORY TYPE CODE TESTS RESULT OUT OF RANGE REFERENCE UNITS LAB L300.4150 11.7-14.9 SECONDS High PROTIME 19.4 LAB L300.4200 Normal INR 1.6 Performed By: #### L300.3900 #### [facility] [address] [place], [address] BNP,B-TYPE NATRIURETIC Collected: 08/19/2018 Status: F Source: [place] 3:28 PM [facility] REPOSITORY TYPE CODE TESTS RESULT OUT OF RANGE REFERENCE UNITS LAB L503.6620 0-100 pg/mL Normal B-TYPE 52.1 CAROL PEP Performed By: #### L503.6620 #### [facility] [address] [place], [address] CHEST PA AND LATERAL Observed: 08/19/2018 Status: F Source: [place] 3:13 PM [facility] REPOSITORY [facility] Imaging Services [address] [place] [address] Chest PA and Lateral MR#: [id number] Acct: [id number] Name: HEAVEN MONROE Rep #: [id number] : 1955 F 62 From: Mari Delacruz MD PCP: Sukhdeep Matthews DO Status: DEP ER Study: Chest PA and Lateral Date of Exam: 08/19/18 Exam# [id number] Ordering Dr: Gabino Barraza MD STUDY: X-RAY CHEST REASON FOR EXAM: Female, 62 years old. Cough and shortness of breath. TECHNIQUE: PA and lateral views of the chest. COMPARISON: February 14, 2018 FINDINGS: There is no new focal consolidation. Normal size heart. Normal mediastinum and tessie. Normal visualized pulmonary arteries. Normal visualized aortic arch and descending thoracic aorta. There are diffuse degenerative changes of the visualized thoracic spine. Normal visualized ribs, clavicles, and shoulders. There is no demonstrated abnormality of the visualized soft tissue structures of the upper abdomen. RAD/Chest PA and Lateral IMPRESSION: No acute cardiopulmonary process. Electronically Signed: Mari Delacruz MD at 17:17 EST Tel , Service support , CC: Sukhdeep Matthews DO; Gabino Barraza MD Technical Staff Assistant: Signed CBC W/DIFF, AUTOMATED Collected: 08/19/2018 Status: F Source: [place] 11:25 AM [facility] REPOSITORY TYPE CODE TESTS RESULT OUT OF RANGE REFERENCE UNITS LAB L100.1000 4.4-11.0 K/mm3 Normal WBC 7.0 LAB L100.1200 4.2-5.4 M/mm3 Normal RBC 4.54 LAB L100.1300 12.0-15.0 g/dl Low HGB 11.6 LAB L100.1400 37-47 % Normal HCT 37.8 LAB L100.1500 81-99 fL Normal MCV 83.3 LAB L100.1600 27.0-32.0 pg Low MCH 25.6 LAB L100.1700 32-36 g/gl Low MCHC 30.7 LAB L100.1810 11.6-14.6 % High RDW CV 16.9 LAB L100.1820 35.1-43.9 fl High RDW SD 51.2 LAB L100.1900 150-450 K/mm3 Normal PLT 419 LAB L100.2000 6.2-12.0 fl Normal MPV 9.4 LAB L100.2100 47-70 % Normal NEUT% 59.5 LAB L100.2200 19-41 % Normal LY% 32.5 LAB L100.2300 0-10 % Normal MONO% 5.2 LAB L100.2400 0-5 % Normal EO% 2.4 LAB L100.2500 0-1 % Normal BASO% 0.1 LAB L100.2550 0.0-0.9 % Normal IM GRAN % 0.300 Result Comment: IG% - Immature Granulocytes (promyelocytes, myelocytes and metamyelocytes) > 1% indicates that a LEFT SHIFT is Present. LAB L100.2620 2.0-7.7 X10 3/uL Normal Absolute Neut 4.1 LAB L100.2720 0.83-4.51 X10 3/ul Normal Absolute Lymph 2.26 Performed By: #### L100.0100 #### [facility] [address] [place], [address] COMPREHENSIVE METABOLIC Collected: 08/19/2018 Status: F Source: [place] [facility] 11:25 AM [facility] REPOSITORY TYPE CODE TESTS RESULT OUT OF RANGE REFERENCE UNITS LAB L501.0100 74-106 mg/dL High GLU 110 Result Comment: Fasting Glucose result from 100 to 125 mg/dL suggests IMPAIRED HOMEOSTASIS per A.D.A. criteria. Please note revised GLUCOSE reference range effective 2017. LAB L501.1000 7-18 mg/dL Normal BUN 17 LAB L501.1100 0.55-1.02 mg/dL Normal CREAT,SERUM 0.62 Result Comment: The validity of the calculated GFR AND GFRAA in patients over 70 years has not been determined. Clinical correlation is essential. LAB L501.1110 >60 mL/min Normal EST GFR 103 Result Comment: Non- GFR Calc LAB L501.1115 >60 mL/min Normal EST GFR - AA 124 Result Comment: GFR Calc LAB L501.1300 10-20 RATIO High BUN/CRE 27.3 LAB L501.1500 6.4-8.2 g/dL T Normal PROT 7.0 LAB L501.1800 3.2-5.0 g/dL Normal ALB 3.7 LAB L501.1950 2.2-4.2 g/dL Normal GLOB 3.3 LAB L501.2000 0.9-2.4 RATIO Normal A/G 1.1 LAB L501.2200 8.5-10.1 mg/dL CA Normal 8.7 LAB L501.4100 15-37 U/L Normal AST 19 LAB L501.4305 45-117 U/L Normal ALK P 63 LAB L501.4405 13-56 U/L Normal ALT 26 LAB L501.4600 0.20-1.00 mg/dL T Normal BILI 0.40 LAB L501.5300 136-145 mmol/L NA Normal 141 LAB L501.5600 3.5-5.1 mmol/L K Normal 3.7 LAB L501.5900 98-107 mmol/L CL Normal 104 LAB L501.6100 21.0-32.0 mmol/L Normal CO2 25.0 LAB L501.6200 5-15 Normal GAP 12 Performed By: #### L500.4050, L500.4100 #### [facility] [address] [place], [place], [address] LIPID PROFILE Collected: 08/19/2018 Status: F Source: [place] 11:25 AM [facility] REPOSITORY TYPE CODE TESTS RESULT OUT OF RANGE REFERENCE UNITS LAB L501.4900 200 mg/dL Normal CHOL 96 Result Comment: <200 mg/dL Desirable 200-240 mg/dL Borderline >240 mg/dL High Risk LAB L501.5000 mg/dL Normal TRIG 102 Result Comment: The drugs N-Acetylcysteine and Metamizole may falsely depress this assay. Serum Triglycerides Reference Interval Normal <150 mg/dL Borderline high 150 - 199 mg/dL High 200 - 499 mg/dL Very High > or = 500 mg/dL LAB L501.6400 mg/dL Normal HDL 49 Result Comment: The drugs N-Acetylcysteine and Metamizole may falsely depress this assay. Reference Range HDL <40 mg/dL Low HDL Cholesterol HDL >or= 60 mg/dL High HDL Cholesterol LAB L501.6500 0-130 mg/dL Normal LDL 27 LAB L501.6600 5-40 mg/dL Normal VLDL 20 Performed By: #### L500.4050, L500.4100 #### [facility] [address] [place], [place], [address] HEMOGLOBIN A1C Collected: 08/19/2018 Status: F Source: [place] 11:25 AM [facility] REPOSITORY TYPE CODE TESTS RESULT OUT OF RANGE REFERENCE UNITS LAB L501.9985 4.2-6.3 % High HGB A1C 7.7 Performed By: #### L501.9985 #### [facility] [address] [place], [address] MICROALB:CREAT Collected: 08/19/2018 Status: F Source: [place] RATIO,RANDOM UR 11:25 AM [facility] REPOSITORY TYPE CODE TESTS RESULT OUT OF RANGE REFERENCE UNITS LAB L501.1200 NO RANGE EST. mg/dL Normal UR CREAT 158.00 LAB L502.0500 NO RANGE EST. mg/L Normal 46.9 MICROALBUMIN ,UR LAB L502.0600 <30 mg/g CRE mg/g CRE Normal 29.7 MALB:CREAT Performed By: #### L502.0250 #### [facility] [address] [place], [address] TYPEWRITER REPAIRER OFFICE VISIT Observed: 07/30/2018 Status: F Source: [place] REPORT 10:10 AM [facility] REPOSITORY [facility] [address] [place] [address] OFFICE VISIT Date of Service: 09/07/17 MR#: [id number] Acct: [id number] Name: HEAVEN MONROE Rep #: [id number] : 1955 Provider: DEBORA Abreu Age/Sex: 61/F Location: [facility] [place] [facility] Status: Signed with Addenda ADDENDUM by DEBORA Abreu on 07/30/18 at 1010 Addendum entered and electronically signed by EV Frias 07/30/18 10:10: Rectal exam was deferred. No masses palpated Assessment AND Plan 1. Encounter for gynecological examination with abnormal finding Z01.411; Z01.411 Plan - EV Frias Reviewed diet and exercise especially with elevated BP and urinary urgence Schedule mammogram Thin prep pap collected RTO 1 year, prn with problems 2. Encounter for screening mammogram for malignant neoplasm of breast Z12.31 3. 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 And Development Intern Required: No Is patient in pain?: Yes Allergies KENYA Inhibitors Allergy (Verified 09/07/17 14:25) Other clindamycin Allergy (Verified 09/07/17 14:25) Hives liraglutide [From Victoza] Allergy (Verified 09/07/17 14:25) Hives propoxyphene napsylate [From Darvocet-N 100] Allergy (Verified 09/07/17 14:25) Unknown Medications Albuterol IH (ProAir) [Proair Hfa] 2 puff INHALATION Q4H PRN PRN 02/09/14 [History Confirmed 12/08/16] Fenofibrate [Lofibra] 160 mg PO QHS 02/09/14 [History Confirmed 12/08/16] Hydrochlorothiazide 25 mg PO DAILY 02/09/14 [History Confirmed 12/08/16] Lansoprazole [Prevacid] 30 mg PO DAILY 02/09/14 [History Confirmed 12/08/16] Metformin HCl [Glucophage] 1,000 mg PO BIDCM 02/09/14 [History Confirmed 12/08/16] Ropinirole HCl [Requip] 3 - 6 mg PO QHS 02/09/14 [History Confirmed 12/08/16] Warfarin [Coumadin] 2.5 mg PO DAILY 02/09/14 [History Confirmed 12/08/16] TraMADol [Ultram] 50 mg PO Q6H PRN PRN #8 tab 04/09/14 [Rx Confirmed 12/08/16] Exenatide [Byetta (BKC)] 5 mcg SC BIDAC 11/30/16 [History Confirmed 12/08/16] Losartan Potassium [Cozaar] 50 mg PO DAILY 11/30/16 [History Confirmed 12/08/16] Sertraline HCl [Zoloft] 200 mg PO DAILY 11/30/16 [History Confirmed 12/08/16] Atorvastatin Calcium [Lipitor] 40 mg PO QHS 12/04/16 [History Confirmed 12/08/16] trospium ER 60 mg capsule,extended release 24 hr 60 mg PO QAM 09/07/17 [History Confirmed 09/07/17] Is last menstrual period known: No Post menopausal: Yes Patient : No : No Pregancy History 2 Elective abortions Hx Para 2 Spontaneous abortions Past Pregnancies Del. DatName GA/WeeksOutcome Route Bt WeigInfant GLabor LgAnesthesDel LocaProviderFOB e ht en ia tn Unknown 1978 Ang lexi Unknown 1980 [place] on PFSH Medical History Sprain and strain of ribs (Acute) Chest pain (Acute) Abnormal nuclear stress test (Acute) HLD (hyperlipidemia) (Chronic) HTN (hypertension) (Chronic) Diabetes mellitus (Chronic) DVT (deep venous thrombosis) (Chronic) Pulmonary emboli (Chronic) 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 syndrome (Chronic) Anxiety and depression (Acute) Diabetes (Acute) gallbladder surgery (Acute) Hypertension (Chronic) Surgical History History of hip replacement (Acute) Hx of appendectomy (Acute) Family History Father Diabetes Heart disease Mother CVA (cerebral vascular accident) Alzheimer disease Sister Cancer throat, mouth Social History Smoking Status: Never smoker alcohol intake: never substance use type: does not use caffeine: Yes what type of physical activity do you participate in: none seatbelt use: always do you feel safe at home: Yes additional social history: [place]- Retired from [employer] HPI Encounter for routine gynecological examination: Details: HEAVEN MONROE is a 61 year old who presents for annual exam/new patient. Noting urinary frequency and urgency X 1 week. Aware of elevated BP and seeing PCP for this. New diuretic in use Last PAP: 3 yr [place] History of abnormal PAP: no Last mammogram: 3 yr History of abnormal mammogram: no Colon cancer screenin yr ago; repeat 10 yr ROS Const Constitutional: Denies fatigue, weight gain or weight loss Cardio Card: Denies chest pain Resp Resp: Reports shortness of breath with activity; denies cough or dyspnea GI GI: Denies abdominal pain, constipation, change in stools, vomiting or bloating : Reports urinary urgency and urinary frequency Exam Const General: cooperative, healthy appearing, no acute distress, well developed Orientation: alert, oriented to person, oriented to place [facility] Head: normal to inspection Neck Neck: normal visual inspection Thyroid: thyroid normal Lymphatic: no lymphadenopathy noted Chest Breast inspection: normal inspection of the breasts, normal inspection of the axillae Breast palpation: normal palpation of the breasts, normal palpation of the axillae, no axillary lymphadenopathy Resp Effort AND Inspection: normal respiratory effort Auscultation: clear to auscultation bilaterally Cardio Rate: regular rate Rhythm: regular rhythm GI Palpation: soft, nontender, no masses Rectal Exam: mass, deferred External Female Exam: normal external appearance, normal appearance of the urethra Urethra: normal appearance of the urethra, normal palpation Speculum Exam - Vagina: normal appearance of the vagina, normal vaginal discharge Speculum Exam - Cervix: normal appearance of the cervix Bimanual Exam- Vagina AND Uterus: normal bimanual exam, uterine size normal, uterine shape normal, uterus non-tender Bimanual Exam- Adnexa, other: normal adnexae, no adnexal masses, adnexae non-tender, pelvic support normal Pelvic Support: normal Neuro General: alert, oriented x3 Psych Affect: normal affect Assessment AND Plan 1. Encounter for gynecological examination with abnormal finding Z01.411; Z01.411 2. Encounter for screening mammogram for malignant neoplasm of breast Z12.31 Orders Orders: 3. Urinary urgency R39.15 Plan Detail Other Orders Orders: Results BMSUA Office Urine Color YELLOW Last Edit by Jimena De Dios on 09/07/17 14:59 09/07/17 1649 <Electronically signed by Le CARRENO> Date Le CARRENO Cosigner Signature: Date (if applicable) CC: Observed: 05/03/2018 Status: F Source: [place] CULTURE, URINE 10:33 AM [facility] REPOSITORY Urine Culture ORGANISM 1: Escherichia coli Beverly Count 80,000-100,000 ORGANISM 2: Proteus mirabilis Beverly Count 25,000-50,000 Escherichia coli: REACTION Amoxacillin/Clavulanic Acid $ <=2 S Ampicillin $ <=2 S Ampicillin/Sulbactam $ <=2 S Cefazolin $ <=4 S Cefepime $ <=1 S Ceftriaxone $ <=1 S Ciprofloxacin $ <=0.25 S ESBL - Ertapenim $$$ <=0.5 S Gentamicin $ <=1 S Imipenem *NF <=0.25 S Levofloxacin $ <=0.12 S Nitrofurantoin $ <=16 S Piperacillin/Tazobactam $$ <=4 S Tobramycin $ <=1 S Trimethoprim/Sulfametho $ <=20 S (NF) indicates non-formulary drug at [facility]. Approval by Infectious Disease Specialist required before non-formulary drugs may be ordered and/or dispensed. Proteus mirabilis: REACTION Amoxacillin/Clavulanic Acid $ <=2 S Ampicillin $ <=2 S Ampicillin/Sulbactam $ <=2 S Cefazolin $ <=4 S Cefepime $ <=1 S Ceftriaxone $ <=1 S Ciprofloxacin $ >=4 R Ertapenim $$$ <=0.5 S Gentamicin $ <=1 S Levofloxacin $ >=8 R Nitrofurantoin $ 128 R Piperacillin/Tazobactam $$ <=4 S Tobramycin $ <=1 S Trimethoprim/Sulfametho $ >=320 R (NF) indicates non-formulary drug at [facility]. Approval by Infectious Disease Specialist required before non-formulary drugs may be ordered and/or dispensed. Performed By: #### M100.0650 #### [facility] [address] [place], [address] INITAL EVALUATION (1) Observed: 04/10/2018 Status: F Source: [place] - PT 7:02 PM [facility] REPOSITORY [facility] [place] [address] Fax REHABILITATION SERVICES INITIAL EVALUATION MR#: [id number] Acct: [id number] Name: HEAVEN MONROE Rep #: [id number] : 1955 62 From: Misbah Hardy MPT Referring DrAbundio: Sukhdeep Matthews DO Status: REG RCR Insurance: MMO MEDICARE SELF PAY INSURANCE Patient's Visit Information HEAVEN MONROE is a 62 year old F referred to Physical Therapy by Sukhdeep Matthews DO with a diagnosis of BPPV. Date of Evaluation: 04/09/18 Physical Therapist: Misbah Hardy - Visit Plan Frequency: PRN Duration: 4 Weeks Plan: Issued MCKEE-Daroff exercises per pt request to see if that helps with some of her dizziness. Pt will call in if she feels that her dizziness increases or she has a bad day with it. - Subjective Subjective: Pt reports that she is better now (she had to cancel once). She gets dizzy if she lays down or get up or sitting in a chair and move the wrong way or bending downto pick something up. It started about 1 month ago....had it awhile before saw Dr gabriela she thought it was allergy stuff. SHe has had this in the past and feels like she gets it in the spring and in the fall. When she rolls in bed to the L is when she gets dizzy. She feels that it last 5-10 seconds. She reports that she is spinning. She has had no falls. Pt has no ear pain. Pt reports that her balance is sometimes ok and sometimes not. - Pain R knee pain Pain Intensity (Out of 10): 8 - Objective -Hallpike B. Pt may have had a slight bit of dizziness each direction but nothing like she has been complaining of. -Roll test B. -nystagmus or symptoms with saccades or pursuit - Rehabilitation Potential Rehabilitation Potential: Good - Anticipated Interventions Patient/Client Instruction: Educate patient on: Condition, Plan of Care For the Purpose of:: To improve gait and locomotor functions, To improve safety with gait Therapeutic Exercise to Include: Balance training, Postural training, Gait and locomotor training For the Purpose of:: To improve gait and locomotor functions, To improve balance Thank you for the opportunity to evaluate your patient. For Medicare and Medicare HMO plans, please review the plan of care and approve it. It will need to be FAXED BACK to us at [phone] for Medicare purposes. Please let me know if there are questions or concerns regarding this plan of care. Physician Signature: Date: <Electronically signed by Misbah Hardy MPT> 04/10/18 1902 CC: Sukhdeep Matthews DO Signed For Medicare only, by signing this I certify the plan of care. Physicians Signature Date CHEST PA AND LATERAL Observed: 02/14/2018 Status: F Source: [place] 1:49 PM [facility] REPOSITORY [facility] Imaging Services [address] [address] Chest PA and Lateral MR#: [id number] Acct: [id number] Name: HEAVEN MONROE Rep #: [id number] : 1955 F 62 From: Angel Alexander MD PCP: Sukhdeep Matthews DO Status: REG CLI Study: Chest PA and Lateral Date of Exam: 02/14/18 Exam# [id number] Ordering Dr: Seng Baez MD STUDY: X-RAY CHEST REASON FOR EXAM: Female, 62 years old. Shortness of breath TECHNIQUE: PA and lateral chest COMPARISON: 12/21/2017 FINDINGS: The lungs are clear and expanded. Normal cardiomediastinal silhouette, tessie and pleural margins. No acute osseous or upper abdominal process. Scoliosis. Prior cholecystectomy. RAD/Chest PA and Lateral IMPRESSION: No acute cardiopulmonary process. Electronically Signed: Angel Alexander, at 18:54 EDT Tel , Service support , CC: Sukhdeep Matthews DO; Seng Baez Technical Staff Assistant: Signed CBC W/DIFF, AUTOMATED Collected: 02/01/2018 Status: F Source: [place] 9:50 AM [facility] REPOSITORY TYPE CODE TESTS RESULT OUT OF RANGE REFERENCE UNITS LAB L100.1000 4.4-11.0 K/mm3 Normal WBC 7.3 LAB L100.1200 4.2-5.4 M/mm3 Normal RBC 4.64 LAB L100.1300 12.0-15.0 g/dl Normal HGB 12.3 LAB L100.1400 37-47 % Normal HCT 39.1 LAB L100.1500 81-99 fL Normal MCV 84.3 LAB L100.1600 27.0-32.0 pg Low MCH 26.5 LAB L100.1700 32-36 g/gl Low MCHC 31.5 LAB L100.1810 11.6-14.6 % High RDW CV 16.6 LAB L100.1820 35.1-43.9 fl High RDW SD 51.4 LAB L100.1900 150-450 K/mm3 Normal PLT 434 LAB L100.2000 6.2-12.0 fl Normal MPV 9.5 LAB L100.2100 47-70 % Normal NEUT% 58.7 LAB L100.2200 19-41 % Normal LY% 33.8 LAB L100.2300 0-10 % Normal MONO% 4.8 LAB L100.2400 0-5 % Normal EO% 2.3 LAB L100.2500 0-1 % Normal BASO% 0.1 LAB L100.2550 0.0-0.9 % Normal IM GRAN % 0.300 Result Comment: IG% - Immature Granulocytes (promyelocytes, myelocytes and metamyelocytes) > 1% indicates that a LEFT SHIFT is Present. LAB L100.2620 2.0-7.7 X10 3/uL Normal Absolute Neut 4.3 LAB L100.2720 0.83-4.51 X10 3/ul Normal Absolute Lymph 2.48 Performed By: #### L100.0100 #### [facility] [address] [facility] [place], [address] COMPREHENSIVE METABOLIC Collected: 02/01/2018 Status: F Source: [facility] 9:50 AM [facility] REPOSITORY TYPE CODE TESTS RESULT OUT OF RANGE REFERENCE UNITS LAB L501.0100 74-106 mg/dL High GLU 122 Result Comment: Fasting Glucose result from 100 to 125 mg/dL suggests IMPAIRED HOMEOSTASIS per A.D.A. criteria. Please note revised GLUCOSE reference range effective 2017. LAB L501.1000 7-18 mg/dL Normal BUN 14 LAB L501.1100 0.55-1.02 mg/dL Normal CREAT,SERUM 0.69 Result Comment: The validity of the calculated GFR AND GFRAA in patients over 70 years has not been determined. Clinical correlation is essential. LAB L501.1110 >60 mL/min Normal EST GFR 92 Result Comment: Non- GFR Calc LAB L501.1115 >60 mL/min Normal EST GFR - AA 111 Result Comment: GFR Calc LAB L501.1300 10-20 RATIO High BUN/CRE 20.4 LAB L501.1500 6.4-8.2 g/dL T Normal PROT 7.5 LAB L501.1800 3.2-5.0 g/dL Normal ALB 3.8 LAB L501.1950 2.2-4.2 g/dL Normal GLOB 3.7 LAB L501.2000 0.9-2.4 RATIO Normal A/G 1.0 LAB L501.2200 8.5-10.1 mg/dL CA Normal 9.1 LAB L501.4100 15-37 U/L Normal AST 21 LAB L501.4305 45-117 U/L Normal ALK P 61 LAB L501.4405 13-56 U/L Normal ALT 29 LAB L501.4600 0.20-1.00 mg/dL T Normal BILI 0.30 LAB L501.5300 136-145 mmol/L NA Normal 139 LAB L501.5600 3.5-5.1 mmol/L K Normal 3.8 LAB L501.5900 98-107 mmol/L CL Normal 103 LAB L501.6100 21.0-32.0 mmol/L Normal CO2 29.0 LAB L501.6200 5-15 Normal GAP 7 Performed By: #### L500.4050, L500.4100 #### [facility] [address] [place], [place], [address] LIPID PROFILE Collected: 02/01/2018 Status: F Source: [place] 9:50 AM [facility] REPOSITORY TYPE CODE TESTS RESULT OUT OF RANGE REFERENCE UNITS LAB L501.4900 200 mg/dL Normal CHOL 97 Result Comment: <200 mg/dL Desirable 200-240 mg/dL Borderline >240 mg/dL High Risk LAB L501.5000 mg/dL Normal TRIG 129 Result Comment: The drugs N-Acetylcysteine and Metamizole may falsely depress this assay. Serum Triglycerides Reference Interval Normal <150 mg/dL Borderline high 150 - 199 mg/dL High 200 - 499 mg/dL Very High > or = 500 mg/dL LAB L501.6400 mg/dL Normal HDL 45 Result Comment: The drugs N-Acetylcysteine and Metamizole may falsely depress this assay. Reference Range HDL <40 mg/dL Low HDL Cholesterol HDL >or= 60 mg/dL High HDL Cholesterol LAB L501.6500 0-130 mg/dL Normal LDL 26 LAB L501.6600 5-40 mg/dL Normal VLDL 26 Performed By: #### L500.4050, L500.4100 #### [facility] [address] [place], [address] HEMOGLOBIN A1C Collected: 02/01/2018 Status: F Source: [place] 9:50 AM [facility] REPOSITORY TYPE CODE TESTS RESULT OUT OF RANGE REFERENCE UNITS LAB L501.9985 4.2-6.3 % High HGB A1C 7.5 Performed By: #### L501.9985 #### [facility] [address] [facility] [address] MICROALB:CREAT Collected: 02/01/2018 Status: F Source: [place] RATIO,RANDOM UR 9:50 AM [facility] REPOSITORY TYPE CODE TESTS RESULT OUT OF RANGE REFERENCE UNITS LAB L501.1200 NO RANGE EST. mg/dL Normal UR CREAT 258.00 LAB L502.0500 NO RANGE EST. mg/L Normal 109.0 MICROALBUMIN ,UR LAB L502.0600 <30 mg/g CRE mg/g CRE High 42.2 MALB:CREAT Performed By: #### L502.0250 #### [facility] [address] [place], [address] URINALYSIS, COMPLETE Collected: 02/01/2018 Status: F Source: [place] 9:50 AM [facility] REPOSITORY Order Comment: How was Urine Obtained? CLEAN CATCH TYPE CODE TESTS RESULT OUT OF RANGE REFERENCE UNITS LAB L400.3000 Yellow COLOR Normal Yellow LAB L400.3050 Clear Normal CLARITY Cloudy LAB L400.3200 Normal mg/dl Normal GLUCOSE, UR NEGATIVE LAB L400.3300 Negative mg/dL Normal BILIRUBIN URINE Negative LAB L400.3400 Negative mg/dl High 5 KETONE UR LAB L400.3465 1.002-1.030 Normal SP.GR. DIPSTX 1.025 LAB L400.3550 5.0 - 8.0 pH UR Normal 6.0 LAB L400.3600 Negative mg/dl High PROT 30 DIPSTX LAB L400.3700 Normal mg/dl Normal UROBILI Normal LAB L400.3750 Negative High NITRITE UR Positive LAB L400.3780 Negative /ul High 25 OCCULT BLOOD-UR LAB L400.3800 Negative /ul High LEUK ESTERASE 500 LAB L400.4050 0-5 /hpf WBC Normal 50-100 SEEN LAB L400.4100 0-5 /hpf Normal RBC-UA 0-5 SEEN LAB L400.4150 5-10 /hpf SQUAM Normal EPI 25-50 SEEN LAB L400.4300 None Seen /hpf 4+ Normal BACTERIA LAB L400.4350 <or=2+ /hpf 1+ Normal MUCUS, URINE Performed By: #### L400.0001 #### [facility] [address] [place] [address]. [place], [place], [address] HEPATITIS C ANTIBODIES Collected: 02/01/2018 Status: F Source: [place] 9:50 AM [facility] REPOSITORY TYPE CODE TESTS RESULT OUT OF RANGE REFERENCE UNITS LAB L3100.0650 0.0-0.9 s/co ratio Normal HEP C AB <0.1 Result Comment: Negative: < 0.8 Indeterminate: 0.8 - 0.9 Positive: > 0.9 The CDC recommends that a positive HCV antibody result be followed up with a HCV Nucleic Acid Amplification test (807630). Performed at: [facility] [id number] [employer] Registrar: Marvin Ordaz PhD, Phone: [phone] Performed By: #### L3100.0625 #### [facility] (refer to report for specific site) refer to report for address and phone number PROTHROMBIN TIME W/INR Collected: 12/25/2017 Status: F Source: [place] 1:55 PM [facility] REPOSITORY Order Comment: Send Results To: PCP Reason for Laboratory Test History of factor V Leiden, on Coumadin TYPE CODE TESTS RESULT OUT OF RANGE REFERENCE UNITS LAB L300.4150 11.7-14.9 SECONDS High PROTIME 22.8 LAB L300.4200 Normal INR 2.0 Performed By: #### L300.3900 #### [facility] [address] [place], [address] DISCHARGE SUMMARY Observed: 12/23/2017 Status: F Source: [place] 1:13 PM [facility] REPOSITORY [facility] Medical Records Department [address] [place] [address] Discharge Summary 12/23/17 1308 MR#: [id number] Acct: [id number] Name: HEAVEN MONROE Rep #: [id number] : 1955 62 From: Zeina Paige MD PCP: Sukhdeep Matthews DO Status: DIS IN Y [id number] Discharge Date and Diagnosis Date of Admission: 12/21/17 Date of Discharge: 12/23/17 - Primary Discharge Diagnosis #1 acute C. difficile colitis. #2 hypokalemia/hypomagnesemia. - Secondary Discharge Diagnosis Chronic Problems (Last Updated 09/07/17 @ 14:31 by Lor Sahu) Factor V Leiden (Chronic) HLD (hyperlipidemia) (Chronic) HTN (hypertension) (Chronic) Diabetes mellitus (Chronic) DVT (deep venous thrombosis) (Chronic) Pulmonary emboli (Chronic) 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 syndrome (Chronic) Hospital Course and Treatment Imaging Results: Clinical Impression(s) from Imaging Studies Abdomen/Pelvis CT 12/21/17 17:47 IMPRESSION: No acute abnormality Hepatomegaly and nonspecific fatty infiltration of the liver. Status post cholecystectomy and appendectomy. small left ovarian cyst Multiple other findings as above Electronically Signed: Eleazar Venegas MD at 20:36 EDT , Service support , Chest X-Ray 12/21/17 20:50 IMPRESSION: Elevated right hemidiaphragm and mild right basilar atelectasis Electronically Signed: Eleazar Venegas MD at 21:29 EDT , Service support , Operations: None Procedures: None Summary of Care Provided: Patient seen and examined on the day of discharge and appeared to be stable to be discharged home. He had one more episode of diarrhea this morning, loose stool without blood. She has no more abdominal pain, nausea vomiting. She has been afebrile. Her vital signs are stable. - Physical Exam General: Alert, Oriented x3, Cooperative, No apparent distress. HEENT: Atraumatic, PERRLA, EOMI. Neck: Supple, No JVD, Negative Carotid Bruits, Trachea Midline, Thyroid Normal. Lungs: Clear to auscultation, Normal air movement, No rhonchi, No wheeze, No rales. Cardiovascular: Regular rate, Regular Rhythm, Normal S1, Normal S2, PMI Normal. Abdomen: Bowel Sounds Present, Soft, Non Tender, Non-Distended, obese, no Hepato-splenomegaly. Extremities: No clubbing, No cyanosis, No edema Skin: No rashes, No breakdown Neurological: Neuro grossly intact Vital Signs are stable. Hospital course: The patient is a 62 year old F admitted because of abdominal pain, nausea and diarrhea and she was found to have significant leukocytosis and her stool was positive for C. difficile DNA. She was diagnosed with acute C. difficile colitis. She was treated with IV fluids and initially, started on empiric IV ciprofloxacin and Flagyl. CT scan abdomen and pelvis with contrast revealed no acute abnormality, showed hepatomegaly with fatty infiltration of the liver and small left ovarian cyst. Stool for C. difficile came back positive for toxigenic C. difficile DNA. Patient was switched from IV Flagyl to oral Flagyl for acute C. difficile colitis. Patient was on Keflex 1 week before admission which is likely the predisposing factor for the acute C. difficile infection. Her potassium and magnesium were low and were replaced and corrected. With laser therapy, patient symptoms improved and she had no more abdominal pain, nausea vomiting and she was able to tolerate diet. Diarrhea improved. Her white blood cell count returned back to normal. She was on Coumadin for history of factor V Leiden with history of DVTs and PEs. Her INR was therapeutic. Patient discharged home in a stable medical condition, discharged on Flagyl 500 mg p.o. 3 times daily for 14 days of treatment, requested to not take Coumadin tonight because INR is 3.2, recommended to resume taking Coumadin tomorrow night and do blood work of pro time and INR on Cindy morning, plan to follow-up with PCP in 1 week. Discharge Activity: Return to Normal Activity Weight Bearing Status: Full weight bearing Call your doctor if you observe: Fever of 101 or Higher, Shortness of breath, Dizziness, Fainting spells, Chest pain, Increased palpitations (irregular heartbeat), Uncontrolled pain Home Medications: Medications to take at Discharge Albuterol IH (ProAir) [Proair Hfa] 2 puff INHALATION Q4H PRN PRN 02/09/14 Fenofibrate [Lofibra] 160 mg PO QHS 02/09/14 Hydrochlorothiazide 25 mg PO DAILY 02/09/14 Lansoprazole [Prevacid] 30 mg PO DAILY 02/09/14 Metformin HCl [Glucophage] 1,000 mg PO BIDCM 02/09/14 Ropinirole HCl [Requip] 3 - 6 mg PO QHS 02/09/14 traMADol [Ultram] 50 mg PO Q6H PRN PRN #8 tablet 04/09/14 Exenatide [Byetta (BKC)] 10 mcg SC BIDAC 11/30/16 Losartan Potassium [Cozaar] 50 mg PO DAILY 11/30/16 Sertraline HCl [Zoloft] 200 mg PO DAILY 11/30/16 Atorvastatin Calcium [Lipitor] 40 mg PO QHS 12/04/16 trospium ER 60 mg capsule,extended release 24 hr 60 mg PO QAM 09/07/17 Dicyclomine HCl [Bentyl] 20 mg PO TIDAC #20 capsule 12/13/17 Furosemide [Lasix] 20 mg PO DAILY 12/13/17 Ondansetron [Zofran Odt] 4 mg PO Q8H PRN PRN #10 tablet 12/13/17 Potassium Chloride [K-Dur] 20 meq PO BID 12/22/17 Clotrimazole [Lotrimin] 1 applicatio TOPICAL BID 7 Days tube 12/23/17 Metronidazole [Flagyl] 500 mg PO TID #40 tab 12/23/17 Warfarin [Coumadin] 2.5 mg PO DAILY #0 12/23/17 Following Prescrptions Were Given to Patient: Clotrimazole [Lotrimin] 1 applicatio TOPICAL BID 7 Days tube Metronidazole [Flagyl] 500 mg PO TID #40 tab Primary Care Physician: Sukhdeep Matthews DO [Primary Care Provider] - Please follow up with your Primary Care Physician in: 1 week. Patient Instructions: Clostridium difficile Infection Disposition: Home Minutes spent on discharge:: 32 Patient Condition:: Stable Medical Necessity - Tobacco Use Smoking Status: Never smoker Meaningful Use Info Meaningful Use Diagnoses (Choose all that apply): None applicable Code Visit Inpatient E AND M: 63852 Disch Hosp 12/23/17 1313 <Electronically signed by Zeina Paige MD> Date Zeina Paige MD Cosigner Signature (if applicable): Date CC: Zeina Paige; Sukhdeep Matthews DO Signed DISCHARGE INSTRUCTION Observed: 12/23/2017 Status: F Source: [place] 9:43 AM [facility] RE[facility]ORY [facility] Medical Records Department [address] [place] [address] Instructions for Home/Discharge Instructions 12/23/17 0941 MR#: [id number] Acct: [id number] Name: HEAVEN MONROE Rep #: [id number] : 1955 62 From: Zeina Paige MD PCP: Sukhdeep Matthews DO Status: ADM IN - Discharge Diagnoses Current Active Problems: Current Active and Chronic Problems (Last Updated 09/07/17 @ 14:31 by Lor Sahu) Factor V Leiden (Chronic) You will use the following diet at home:: Calorie/Carbohydrate Controlled (specify 1200, 1400, etc) - 1800 maricel., Cardiac Your food should be the consistency of: Regular Discharge Activity: Return to Normal Activity Weight Bearing Status: Full weight bearing Call your doctor if you observe: Fever of 101 or Higher, Shortness of breath, Dizziness, Fainting spells, Chest pain, Increased palpitations (irregular heartbeat), Uncontrolled pain Instructions: Clostridium difficile Infection Additional Instructions: Do not take Coumadin tonight, resume taking Coumadin tomorrow night, do the blood work on Sunday morning and call your PCP for next Coumadin dosing. Allergies/Adverse Reactions: Allergies KENYA Inhibitors Allergy (Verified 12/21/17 23:47) cough clindamycin Allergy (Verified 12/21/17 17:27) Hives liraglutide [From Victoza] Allergy (Verified 12/21/17 23:47) lump in throat propoxyphene napsylate [From Darvocet-N 100] Allergy (Verified 12/21/17 17:27) Unknown Medications to take at Discharge Albuterol IH (ProAir) [Proair Hfa] 2 puff INHALATION Q4H PRN PRN 02/09/14 Fenofibrate [Lofibra] 160 mg PO QHS 02/09/14 Hydrochlorothiazide 25 mg PO DAILY 02/09/14 Lansoprazole [Prevacid] 30 mg PO DAILY 02/09/14 Metformin HCl [Glucophage] 1,000 mg PO BIDCM 02/09/14 Ropinirole HCl [Requip] 3 - 6 mg PO QHS 02/09/14 traMADol [Ultram] 50 mg PO Q6H PRN PRN #8 tablet 04/09/14 Exenatide [Byetta (BKC)] 10 mcg SC BIDAC 11/30/16 Losartan Potassium [Cozaar] 50 mg PO DAILY 11/30/16 Sertraline HCl [Zoloft] 200 mg PO DAILY 11/30/16 Atorvastatin Calcium [Lipitor] 40 mg PO QHS 12/04/16 trospium ER 60 mg capsule,extended release 24 hr 60 mg PO QAM 09/07/17 Dicyclomine HCl [Bentyl] 20 mg PO TIDAC #20 capsule 12/13/17 Furosemide [Lasix] 20 mg PO DAILY 12/13/17 Ondansetron [Zofran Odt] 4 mg PO Q8H PRN PRN #10 tablet 12/13/17 Potassium Chloride [K-Dur] 20 meq PO BID 12/22/17 Clotrimazole [Lotrimin] 1 applicatio TOPICAL BID 7 Days tube 12/23/17 Metronidazole [Flagyl] 500 mg PO TID #40 tab 12/23/17 Warfarin [Coumadin] 2.5 mg PO DAILY #0 12/23/17 The following prescriptions were given: Clotrimazole [Lotrimin] 1 applicatio TOPICAL BID 7 Days tube Metronidazole [Flagyl] 500 mg PO TID #40 tab Primary Care Physician: Sukhdeep Matthews DO [Primary Care Provider] - Please follow up with your Primary Care Physician in: 1 week. 12/23/17 0943 <Electronically signed by Zeina Paige MD> Date Zeina Paige MD CC: Sukhdeep Matthews DO PROTHROMBIN TIME W/INR Collected: 12/23/2017 Status: F Source: [place] 6:55 AM [facility] [place] REPOSITORY TYPE CODE TESTS RESULT OUT OF RANGE REFERENCE UNITS LAB L300.4150 11.7-14.9 SECONDS High PROTIME 32.9 LAB L300.4200 Normal INR 3.2 Performed By: #### L300.3900 #### [facility] [address] [place], [address] CBC W/DIFF, AUTOMATED Collected: 12/23/2017 Status: F Source: [place] 6:55 AM [facility] [place] REPOSITORY TYPE CODE TESTS RESULT OUT OF RANGE REFERENCE UNITS LAB L100.1000 4.4-11.0 K/mm3 Normal WBC 8.2 LAB L100.1200 4.2-5.4 M/mm3 Low RBC 4.17 LAB L100.1300 12.0-15.0 g/dl Low HGB 11.0 LAB L100.1400 37-47 % Low HCT 35.8 LAB L100.1500 81-99 fL Normal MCV 85.9 LAB L100.1600 27.0-32.0 pg Low MCH 26.4 LAB L100.1700 32-36 g/gl Low MCHC 30.7 LAB L100.1810 11.6-14.6 % High RDW CV 17.1 LAB L100.1820 35.1-43.9 fl High RDW SD 54.2 LAB L100.1900 150-450 K/mm3 Normal PLT 291 LAB L100.2000 6.2-12.0 fl Normal MPV 9.1 LAB L100.2100 47-70 % High NEUT% 70.3 LAB L100.2200 19-41 % Normal LY% 21.6 LAB L100.2300 0-10 % Normal MONO% 3.3 LAB L100.2400 0-5 % Normal EO% 4.6 LAB L100.2500 0-1 % Normal BASO% 0.0 LAB L100.2550 0.0-0.9 % Normal IM GRAN % 0.200 Result Comment: IG% - Immature Granulocytes (promyelocytes, myelocytes and metamyelocytes) > 1% indicates that a LEFT SHIFT is Present. LAB L100.2620 2.0-7.7 X10 3/uL Normal Absolute Neut 5.8 LAB L100.2720 0.83-4.51 X10 3/ul Normal Absolute Lymph 1.78 Performed By: #### L100.0100 #### [facility] [address] [place], [address] BASIC METABOLIC Collected: 12/23/2017 Status: F Source: [place] PROFILE ([facility]) 6:55 AM [facility] REPOSITORY TYPE CODE TESTS RESULT OUT OF RANGE REFERENCE UNITS LAB L501.0100 74-106 mg/dL High GLU 140 Result Comment: Fasting Glucose result greater than or equal to 126 mg/dL suggests DIABETES MELLITUS per A.D.A. criteria. Please note revised GLUCOSE reference range effective 2017. LAB L501.1000 7-18 mg/dL Normal BUN 10 LAB L501.1100 0.55-1.02 mg/dL Low CREAT,SERUM 0.47 Result Comment: The validity of the calculated GFR AND GFRAA in patients over 70 years has not been determined. Clinical correlation is essential. LAB L501.1110 >60 mL/min Normal EST GFR 142 Result Comment: Non- GFR Calc LAB L501.1115 >60 mL/min Normal EST GFR - AA 172 Result Comment: GFR Calc LAB L501.1255 ml/min Normal Estimated CRCL 105.80 LAB L501.1300 10-20 RATIO High BUN/CRE 21.2 LAB L501.2200 8.5-10 mg/dL Low .1 CA 7.6 LAB L501.5300 136-14 mmol/L 5 NA Normal 145 LAB L501.5600 3.5-5. mmol/L 1 K Normal 3.7 LAB L501.5900 98-107 mmol/L High CL 114 LAB L501.6100 21.0-3 mmol/L 2.0 CO2 Normal 26.0 LAB L501.6200 5-15 GAP Normal 5 Performed By: #### L500.2500 #### [facility] [address] [place], [address] BEDSIDE GLUCOSE Collected: 12/23/2017 Status: F Source: [place] 6:36 AM [facility] [place] REPOSITORY TYPE CODE TESTS RESULT OUT OF REFERENCE UNITS RANGE LAB L501.080 70-110 mg/dL High BEDSIDE GLU 127 Result Comment: MANAGEMENT OF PATIENT CARE PER NURSING PROTOCOL Performed By: #### L501.080 #### [facility] Point of Care [address] [place] [address] BEDSIDE GLUCOSE Collected: 12/22/2017 Status: F Source: [place] 8:58 PM [facility] REPOSITORY TYPE CODE TESTS RESULT OUT OF REFERENCE UNITS RANGE LAB L501.080 70-110 mg/dL High BEDSIDE GLU 154 Result Comment: MANAGEMENT OF PATIENT CARE PER NURSING PROTOCOL Performed By: #### L501.080 #### [facility] Point of Care [address] [place] [address] BEDSIDE GLUCOSE Collected: 12/22/2017 Status: F Source: [place] 4:00 PM [facility] [place] REPOSITORY TYPE CODE TESTS RESULT OUT OF REFERENCE UNITS RANGE LAB L501.080 70-110 mg/dL High BEDSIDE GLU 148 Result Comment: MANAGEMENT OF PATIENT CARE PER NURSING PROTOCOL Performed By: #### L501.080 #### [facility] Point of Care [address] [place] [address] BEDSIDE GLUCOSE Collected: 12/22/2017 Status: F Source: [place] 11:16 AM [facility] REPOSITORY TYPE CODE TESTS RESULT OUT OF REFERENCE UNITS RANGE LAB L501.080 70-110 mg/dL High BEDSIDE GLU 177 Result Comment: MANAGEMENT OF PATIENT CARE PER NURSING PROTOCOL Performed By: #### L501.080 #### [facility] Point of Care [address] [place], [place] [id number] CBC W/DIFF, AUTOMATED Collected: 12/22/2017 Status: F Source: [place] 6:30 AM [facility] REPOSITORY TYPE CODE TESTS RESULT OUT OF RANGE REFERENCE UNITS LAB L100.1000 4.4-11.0 K/mm3 High WBC 11.8 LAB L100.1200 4.2-5.4 M/mm3 Normal RBC 4.24 LAB L100.1300 12.0-15.0 g/dl Low HGB 11.3 LAB L100.1400 37-47 % Low HCT 35.6 LAB L100.1500 81-99 fL Normal MCV 84.0 LAB L100.1600 27.0-32.0 pg Low MCH 26.7 LAB L100.1700 32-36 g/gl Low MCHC 31.7 LAB L100.1810 11.6-14.6 % High RDW CV 16.6 LAB L100.1820 35.1-43.9 fl High RDW SD 50.6 LAB L100.1900 150-450 K/mm3 Normal PLT 361 LAB L100.2000 6.2-12.0 fl Normal MPV 9.4 LAB L100.2100 47-70 % High NEUT% 77.4 LAB L100.2200 19-41 % Low LY% 13.4 LAB L100.2300 0-10 % Normal MONO% 3.7 LAB L100.2400 0-5 % High EO% 5.2 LAB L100.2500 0-1 % Normal BASO% 0.1 LAB L100.2550 0.0-0.9 % Normal IM GRAN % 0.200 Result Comment: IG% - Immature Granulocytes (promyelocytes, myelocytes and metamyelocytes) > 1% indicates that a LEFT SHIFT is Present. LAB L100.2620 2.0-7.7 X10 3/uL High Absolute Neut 9.1 LAB L100.2720 0.83-4.51 X10 3/ul Normal Absolute Lymph 1.58 Performed By: #### L100.0100 #### [facility] [address] [place], [place], [address] BASIC METABOLIC Collected: 12/22/2017 Status: F Source: [place] PROFILE (BMP) 6:30 AM [facility] [place] REPOSITORY TYPE CODE TESTS RESULT OUT OF RANGE REFERENCE UNITS LAB L501.0100 74-106 mg/dL High GLU 132 Result Comment: Fasting Glucose result greater than or equal to 126 mg/dL suggests DIABETES MELLITUS per A.D.A. criteria. Please note revised GLUCOSE reference range effective 2017. LAB L501.1000 7-18 mg/dL Normal BUN 11 LAB L501.1100 0.55-1.02 mg/dL Low CREAT,SERUM 0.54 Result Comment: The validity of the calculated GFR AND GFRAA in patients over 70 years has not been determined. Clinical correlation is essential. LAB L501.1110 >60 mL/min Normal EST GFR 121 Result Comment: Non- GFR Calc LAB L501.1115 >60 mL/min Normal EST GFR - AA 147 Result Comment: GFR Calc LAB L501.1255 ml/min Normal Estimated CRCL 92.08 LAB L501.1300 10-20 RATIO High BUN/CRE 20.4 LAB L501.2200 8.5-10 mg/dL Low .1 CA 7.6 LAB L501.5300 136-14 mmol/L Normal 5 NA 140 LAB L501.5600 3.5-5. mmol/L Low 1 K 3.2 LAB L501.5900 98-107 mmol/L Normal CL 107 LAB L501.6100 21.0-3 mmol/L Normal 2.0 CO2 25.0 LAB L501.6200 5-15 Normal GAP 8 Performed By: #### L500.2500 #### [facility] [address] [facility] [place], [place], [address] LACTIC ACID Collected: 12/22/2017 Status: F Source: [place] 6:30 AM [facility] REPOSITORY TYPE CODE TESTS RESULT OUT OF RANGE REFERENCE UNITS LAB L503.6005 0.4-2.0 mmol/L Normal LACTIC ACID 1.4 Performed By: #### L503.6005 #### [facility] [address] [facility] [place], [place], [address] MAGNESIUM Collected: 12/22/2017 Status: F Source: [place] 6:30 AM [facility] REPOSITORY Order Comment: C57 ADD TYPE CODE TESTS RESULT OUT OF RANGE REFERENCE UNITS LAB L501.5200 1.6-2.6 mg/dL Low MG 1.5 Result Comment: Please note revised Magnesium reference range effective 2017. Performed By: #### L501.5200 #### [facility] [address] [place], [address] HISTORY AND PHYSICAL Observed: 12/22/2017 Status: F Source: [place] EXAM 3:05 AM [facility] REPOSITORY [facility] Medical Records Department [address] [place] [address] History and Physical 12/21/17 2244 MR#: [id number] Acct: [id number] Name: HEAVEN MONROE Rep #: [id number] : 1955 62 From: Benjy Olguin MD PCP: Sukhdeep Matthews DO Status: ADM IN Y [place] [facility] [id number] Problem List (1) Diarrhea Status: Acute (2) Sprain and strain of ribs Status: Acute (3) DVT (deep venous thrombosis) Status: Chronic Qualifiers: DVT location: lower extremity (4) Diabetes mellitus Status: Chronic (5) HLD (hyperlipidemia) Status: Chronic (6) HTN (hypertension) Status: Chronic History of Present Illness Date of Admission: 12/21/17 Chief Complaint: Diarrhea The patient is a 62 year old female w/ h/o DVT, PE, DMII, HTN and lipidemia admitted for diarrhea. Pt had similar episode a week ago when she presented to the ED. She had diarrhea, n/v and abdominal pain at that time as well. The pain has improved as well as the diarrhea until today. Today, she noted worsening dull-aching abdominal pain diffusely in her upper abdominal area. Pain was severe and would stop her in her track. Pain was associated with diarrhea. No blood. No tarry stool. She had multiple episodes of diarrhea today. Nothing would make it better or worse. No one else in her family is sick. She also has n/v and is not able to tolerate PO. She went to the ED for further workup. Past Medical History Past Medical History (Chronic Problems): Chronic Problems (Last Updated 09/07/17 @ 14:31 by Lor Sahu) HLD (hyperlipidemia) (Chronic) HTN (hypertension) (Chronic) Diabetes mellitus (Chronic) DVT (deep venous thrombosis) (Chronic) Pulmonary emboli (Chronic) 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 syndrome (Chronic) Allergies KENYA Inhibitors Allergy (Verified 12/21/17 17:27) Other clindamycin Allergy (Verified 12/21/17 17:27) Hives liraglutide [From Victoza] Allergy (Verified 12/21/17 17:27) Hives propoxyphene napsylate [From Darvocet-N 100] Allergy (Verified 12/21/17 17:27) Unknown Home Medications: Ambulatory Orders Medication Instructions Recorded Albuterol IH (ProAir) [Proair Hfa] 2 puff INHALATION Q4H PRN PRN 02/09/14 Smoking Status: Never smoker - *Family History Paternal History Items: Heart Disease - CHF Review of Systems Constitutional: Denies: Chills, Fever, Weight Change HEENT: Denies: Head Aches, Sinus Congestion, Sinus Drainage Cardiovascular: Denies: Chest Pain, Palpitations Respiratory: Denies: Cough, Shortness of breath at rest, Sputum production Gastrointestinal: Denies: Abdominal Pain, Nausea, Vomiting Genitourinary: Denies: Dysuria Musculoskeletal: Denies: Joint Pain, Joint Tenderness Skin: Denies: Rash, Wounds Neurological: Denies: Numbness, Tingling, Focal weakness Psychiatric: Denies: Anxiety, Depression, Homicidal Ideations, Suicidal Ideations Hematologic/ Lymphatic: Denies: Easy Bruising, Easy Bleeding VTE Information - Inpt Only VTE Present on Admission: No VTE Mechan Device Prophylaxis: SCD's VTE Pharm Prophylaxis ordered?: Yes Patient Problems: Active and Suspected Problems (Last Updated 09/07/17 @ 14:31 by Lor Sahu) Diarrhea (Acute) - Physical Exam General: Alert, Oriented x3, Cooperative HEENT: Atraumatic, PERRLA, EOMI, Normocephalic Neck: Supple, No JVD, Negative Carotid Bruits Lungs: Clear to auscultation, Normal air movement Cardiovascular: Regular rate, No murmurs Abdomen: Bowel Sounds Present, Soft, Distended, Obese, Tender Extremities: No edema, Capillary Refill Less than 3 Seconds Skin: No rashes, No breakdown Musculoskeletal: No Tenderness to Palpation of Joints or Extremities Neurological: Cranial nerves II-XII grossly intact Psych/Mental Status: Normal Affect, Appropriate Vital Signs Temp Pulse Resp BP Pulse Ox 98.5 F 92 14 150/80 H 99 12/21/17 17:25 12/21/17 21:09 12/21/17 21:09 12/21/17 21:09 12/21/17 21:09 Oxygen Delivery Method Room Air Weight: 124.738 kg Body Mass Index (BMI) 47.2 Laboratory Tests Past 24 Hrs WBC 23.4 H RBC 5.26 Hgb 13.7 Hct 44.2 MCV 84.0 MCH 26.0 L MCHC 31.0 L RDW 16.5 H RDW Differential 50.9 H WBC RBC Hgb Hct MCV MCH MCHC RDW RDW Differential Plt Count MPV Immature Gran % (Auto) Assessment/Plan Active and Suspected Problems (Last Updated 09/07/17 @ 14:31 by Lor Sahu) Diarrhea (Acute) 62 year old female w/ h/o DVT, PE, DMII, HTN and lipidemia admitted for diarrhea. 1) Diarrhea: C. diff and stool and enteric pathogens stool pending. C/w empiric treatment with Cipro and flagyl given leukocytosis. Awaiting cultures. Supportive care, ie hydration. 2) Abdominal pain: Unclear etiology. Possible viral gastroenteritis / GERD. Lipase wnl. Lactic wnl. CT abdominal negative. LFT wnl. Pain controlled. Monitor. 3) H/o DVT / PE: C/w coumadin. 12/22/17 0305 <Electronically signed by Benjy Olguin MD> Date Benjy Olguin MD Cosigner Signature: Date (if applicable) CC: Sukhdeep Matthews DO; Benjy Olguin MD Signed LACTIC ACID Collected: 12/22/2017 Status: F Source: [place] 1:38 AM [facility] REPOSITORY Order Comment: Yes/No query for Sepsis Lactate Rule Y TYPE CODE TESTS RESULT OUT OF RANGE REFERENCE UNITS LAB L503.6005 0.4-2.0 mmol/L Normal LACTIC ACID 2.0 Result Comment: Critical Result(s) Called at: 01:13:46 12/22/2017 by: Ene cortes Camelia Charlee Performed By: #### L503.6005 #### [facility] [address] [place], [address] Observed: 12/22/2017 Status: F Source: [place] CULTURE, BLOOD (WB) 1:38 AM [facility] REPOSITORY BC No growth in 5 days. Performed By: #### M200.1000 #### [facility] [address] [place], [address] Observed: 12/22/2017 Status: F Source: [place] CULTURE, BLOOD (WB) 1:32 AM [facility] REPOSITORY BC No growth in 5 days. Performed By: #### M200.1000 #### [facility] [address] [place], [address] BEDSIDE GLUCOSE Collected: 12/22/2017 Status: F Source: [place] 12:34 AM [facility] [place] REPOSITORY TYPE CODE TESTS RESULT OUT OF REFERENCE UNITS RANGE LAB L501.080 70-110 mg/dL High BEDSIDE GLU 144 Result Comment: MANAGEMENT OF PATIENT CARE PER NURSING PROTOCOL Performed By: #### L501.080 #### [facility] Point of Care [address] [place] [address] EMERGENCY DEPARTMENT Observed: 12/21/2017 Status: F Source: [place] SUMMARY 10:45 PM [facility] REPOSITORY [facility] Medical Records Department [address] [place] [address] Emergency Department Summary 12/21/17 1750 MR#: [id number] Acct: [id number] Name: HEAVEN MONROE Rep #: [id number] : 1955 62 From: Kathleen Newman MD PCP: Sukhdeep Matthews DO Status: ADM IN - ER Visit Summary Date of Service: 12/21/17 Chief Complaint: Abdominal pain History of Present Illness: The patient is a 62 F presenting with abdominal pain. She states she had similar symptoms a week ago. She was seen in the ED at that time. She was treated with Bentyl and Zofran with improvement. She was also started on Keflex for a UTI. She states she was feeling improved and her symptoms started again today. She has had vomiting and diarrhea. Denies fever. She has diffuse abdominal pain. She has a history of previous appendectomy and cholecystectomy. Physical Examination: Vitals are stable. Patient is afebrile. Alert no acute distress. HEENT exam is unremarkable. Neck is supple. Lungs are clear and equal bilaterally. Heart is regular rate and rhythm. Abdomen is soft diffuse tenderness with no rebound or guarding Extremities are unremarkable. Skin is warm and dry. No focal neurologic deficit. Remainder of exam is unremarkable. Emergency Department Course and Treatment: She is given morphine, Zofran. CBC shows a white count of 23.4. Chemistries show glucose 167. INR 2.1. Liver enzymes are normal. Urinalysis shows 5-10 white cells. Urine culture was sent. CT abdomen and pelvis shows no acute process. She continues to have diffuse abdominal pain. Chest xray is unremarkable. Stool studies will be sent. Discussed with the hospitalist for observation. Disposition: Admission Impression: Abdominal pain, leukocytosis, diarrhea This note was generated with Kreix dictation software. It may contain incorrect words, spelling, and punctuation that were not noted in review of the chart prior to signing ED Disposition - Plan for ED Patient: Chief Complaint: Abd Pain Referrals: Sukhdeep Matthews, [Primary Care Provider] - What to do if you have Problems For any increased pain, shortness of breath, bleeding, nausea or vomiting, chest pain, or any unexpected problems, contact your Primary Care Provider. Call [facility] ([phone]) or report to the closest Emergency Room. Call 911 if necessary. 12/21/17 7118 <Electronically signed by Kathleen Newman MD> Date Kathleen Newman MD Cosigner Signature (If Indicated): Date CC: Sukhdeep Matthews DO CHEST 1 VIEW Observed: 12/21/2017 Status: F Source: [place] (PORTABLE) 8:43 PM [facility] REPOSITORY [facility] Imaging Services [address] [place] [address] Chest 1 View (Portable) MR#: [id number] Acct: [id number] Name: HEAVEN MONROE Rep #: [id number] : 1955 F 62 From: Eleazar Venegas MD PCP: Sukhdeep Matthews DO Status: REG ER Study: Chest 1 View (Portable) Date of Exam: 12/21/17 Exam# [id number] Ordering Dr: Kathleen Newman MD STUDY: X-RAY CHEST REASON FOR EXAM: Female, 62 years old. Abdominal pain and vomiting TECHNIQUE: AP portable COMPARISON: December 04, 2016 FINDINGS: There is elevation right hemidiaphragm and mild subsegmental atelectasis in the right lower lobe. There is no demonstrated pleural abnormality. The heart is upper normal size. Normal mediastinum and tessie. Normal visualized pulmonary arteries. Normal visualized aortic arch and descending thoracic aorta. Dorsal spine demonstrates spondylosis. Normal visualized ribs, clavicles, and shoulders. There is no demonstrated abnormality of the visualized soft tissue structures of the upper abdomen. RAD/Chest 1 View (Portable) IMPRESSION: Elevated right hemidiaphragm and mild right basilar atelectasis Electronically Signed: Eleazar Venegas MD at 21:29 EDT , Service support , CC: Kathleen Newman MD; Sukhdeep Matthews DO Technical Staff Assistant: Signed CBC W/DIFF, AUTOMATED Collected: 12/21/2017 Status: F Source: [place] 6:00 PM [facility] REPOSITORY TYPE CODE TESTS RESULT OUT OF RANGE REFERENCE UNITS LAB L100.1000 4.4-11.0 K/mm3 High WBC 23.4 LAB L100.1200 4.2-5.4 M/mm3 Normal RBC 5.26 LAB L100.1300 12.0-15.0 g/dl Normal HGB 13.7 LAB L100.1400 37-47 % Normal HCT 44.2 LAB L100.1500 81-99 fL Normal MCV 84.0 LAB L100.1600 27.0-32.0 pg Low MCH 26.0 LAB L100.1700 32-36 g/gl Low MCHC 31.0 LAB L100.1810 11.6-14.6 % High RDW CV 16.5 LAB L100.1820 35.1-43.9 fl High RDW SD 50.9 LAB L100.1900 150-450 K/mm3 Normal PLT 402 LAB L100.2000 6.2-12.0 fl Normal MPV 9.6 LAB L100.2100 47-70 % High NEUT% 91.2 LAB L100.2200 19-41 % Low LY% 4.7 LAB L100.2300 0-10 % Normal MONO% 2.7 LAB L100.2400 0-5 % Normal EO% 1.0 LAB L100.2500 0-1 % Normal BASO% 0.1 LAB L100.2550 0.0-0.9 % Normal IM GRAN % 0.300 Result Comment: IG% - Immature Granulocytes (promyelocytes, myelocytes and metamyelocytes) > 1% indicates that a LEFT SHIFT is Present. LAB L100.2620 2.0-7.7 X10 3/uL High Absolute Neut 21.3 LAB L100.2720 0.83-4.51 X10 3/ul Normal Absolute Lymph 1.09 LAB L100.4500 Normal SMEAR COMMENT Result Comment: NEUTROPHILIA AND LEFT SHIFT NOTED Performed By: #### L100.0100 #### [facility] [address] [place], [place], [address] PROTHROMBIN TIME W/INR Collected: 12/21/2017 Status: F Source: [place] 6:00 PM [facility] REPOSITORY TYPE CODE TESTS RESULT OUT OF RANGE REFERENCE UNITS LAB L300.4150 11.7-14.9 SECONDS High PROTIME 24.0 LAB L300.4200 Normal INR 2.1 Performed By: #### L300.3900 #### [facility] [address] [place], [address] BASIC METABOLIC Collected: 12/21/2017 Status: F Source: [place] PROFILE (BMP) 6:00 PM [facility] REPOSITORY TYPE CODE TESTS RESULT OUT OF RANGE REFERENCE UNITS LAB L501.0100 74-106 mg/dL High GLU 167 Result Comment: Fasting Glucose result greater than or equal to 126 mg/dL suggests DIABETES MELLITUS per A.D.A. criteria. Please note revised GLUCOSE reference range effective 2017. LAB L501.1000 7-18 mg/dL Normal BUN 16 LAB L501.1100 0.55-1.02 mg/dL Normal CREAT,SERUM 0.75 Result Comment: The validity of the calculated GFR AND GFRAA in patients over 70 years has not been determined. Clinical correlation is essential. LAB L501.1110 >60 mL/min Normal EST GFR 83 Result Comment: Non- GFR Calc LAB L501.1115 >60 mL/min Normal EST GFR - AA 100 Result Comment: GFR Calc LAB L501.1255 ml/min Normal Estimated CRCL 66.30 LAB L501.1300 10-20 RATIO High BUN/CRE 21.3 LAB L501.2200 8.5-10 mg/dL Normal .1 CA 8.9 LAB L501.5300 136-14 mmol/L Normal 5 NA 141 LAB L501.5600 3.5-5. mmol/L Normal 1 K 3.6 LAB L501.5900 98-107 mmol/L Normal CL 104 LAB L501.6100 21.0-3 mmol/L Normal 2.0 CO2 26.0 LAB L501.6200 5-15 Normal GAP 11 Performed By: #### L500.2500, L500.3400, L501.2450 #### [facility] [address] [place], [place], [address] LIVER PROFILE Collected: 12/21/2017 Status: F Source: [place] 6:00 PM [facility] REPOSITORY TYPE CODE TESTS RESULT OUT OF RANGE REFERENCE UNITS LAB L501.1500 6.4-8.2 g/dL Normal T PROT 7.3 LAB L501.1800 3.2-5.0 g/dL Normal ALB 3.5 LAB L501.1950 2.2-4.2 g/dL Normal GLOB 3.8 LAB L501.4100 15-37 U/L Normal AST 17 LAB L501.4305 45-117 U/L Normal ALK P 65 LAB L501.4405 13-56 U/L Normal ALT 23 Result Comment: Please note revised ALT reference range effective 2017. LAB L501.4600 0.20-1.00 mg/dL Normal T BILI 0.30 LAB L501.4700 0.00-0.30 mg/dL Normal D BILI 0.06 Performed By: #### L500.2500, L500.3400, L501.2450 #### [facility] [address] [place], [place], [address] LIPASE Collected: 12/21/2017 Status: F Source: [place] 6:00 [facility] REPOSITORY TYPE CODE TESTS RESULT OUT OF RANGE REFERENCE UNITS LAB L501.2450 73-393 U/L Normal LIPASE 77 Performed By: #### L500.2500, L500.3400, L501.2450 #### [facility] [address] [place], [place], [address] URINALYSIS, COMPLETE Collected: 12/21/2017 Status: F Source: [place] 6:00 PM [facility] REPOSITORY Order Comment: Order Date: 12/21/17 Has pt arrived? Y How was Urine Obtained? CLEAN CATCH TYPE CODE TESTS RESULT OUT OF RANGE REFERENCE UNITS LAB L400.3000 Yellow COLOR Normal Yellow LAB L400.3050 Clear Normal CLARITY Sl. Cloudy LAB L400.3200 Normal mg/dl Normal GLUCOSE, UR Normal LAB L400.3300 Negative mg/dL High BILIRUBIN URINE 1 Result Comment: COLOR OF URINE MAY AFFECT DIPSTICK RESULTS. LAB L400.3400 Negative mg/dl High KETONE UR 5 LAB L400.3465 1.002-1.030 Normal SP.GR. DIPSTX 1.025 LAB L400.3550 5.0 - 8.0 pH Normal UR 5.0 LAB L400.3600 Negative mg/dl High PROT DIPSTX 30 LAB L400.3700 Normal mg/dl Normal UROBILI Normal LAB L400.3750 Negative Normal NITRITE UR Negative LAB L400.3780 Negative /ul High OCCULT 25 BLOOD-UR LAB L400.3800 Negative /ul High LEUK ESTERASE 25 LAB L400.4050 0-5 /hpf Normal WBC 5-10 SEEN LAB L400.4100 0-5 /hpf Normal RBC-UA 0-5 SEEN LAB L400.4150 5-10 /hpf Normal SQUAM EPI 0-5 SEEN LAB L400.4300 None Seen /hpf Normal BACTERIA 0 SEEN LAB L400.4350 <or=2+ /hpf Normal MUCUS, URINE RARE LAB L400.4700 <or=2+ /hpf CA Normal OX CRYSTAL 1+ Performed By: #### L400.0001 #### [facility] [address] [place], [place], [address] Observed: 12/21/2017 Status: F Source: FL[place] CULTURE, URINE 6:00 PM [facility] REPOSITORY Order Date: 12/21/17 Has pt arrived? Y Urine Culture ORGANISM 1: Mixed Gram Pos AND Gram Neg Org Beverly Count >100,000 MIX CULTURE Mixed contaminants. Submit a new specimen if indicated. Performed By: #### M100.0650 #### [facility] [address] [place], [place], [address] ABDOMEN/PELVIS WITH Observed: 12/21/2017 Status: F Source: [place] CONTRAST 5:49 PM [facility] REPOSITORY [facility] Imaging Services [address] [place] [address] Abdomen/Pelvis WITH Contrast MR#: [id number] Acct: [id number] Name: HEAVEN MONROE Jama Rep #: [id number] : 1955 F 62 From: Eleazar Venegas MD PCP: Sukhdeep Matthews DO Status: REG ER Study: Abdomen/Pelvis WITH Contrast Date of Exam: 12/21/17 Exam# [id number] Ordering Dr: Kathleen Newman MD STUDY: CT ABDOMEN AND PELVIS WITH CONTRAST REASON FOR EXAM: Female, 62 years old. Diffuse abdominal pain RADIATION DOSAGE (If Supplied By Facility): CTDIvol = ( 21.87 ) mGy, DLP = ( 1747.42 ) mGycm TECHNIQUE: Transaxial images were obtained from the dome of the diaphragm to the symphysis pubis without oral contrast. 100ML ml of Isovue 300 contrast was administered. Sagittal and coronal images were reconstructed. Individualized dose optimization techniques were used for this CT. COMPARISON: March 14, 2013 FINDINGS: There is minor atelectasis at the right lung base.. The visualized portions of the heart are within normal limits. Liver is enlarged and fatty infiltrated without mass or bile duct dilatation. Gallbladder has been removed surgically. Normal spleen. The pancreas is atrophic and fatty infiltrated. Normal bilateral adrenal glands. Normal right kidney. Normal left kidney. Normal visualized stomach. Normal small intestine. Normal colon. Appendix not visualized consistent with appendectomy. Minor atherosclerotic changes of the aorta without evidence for aneurysm. Normal inferior vena cava. Normal retroperitoneum. Normal urinary bladder. There is a left adnexal cyst measuring approximately 3 x 2.8 cm likely ovarian Tiny fat-containing umbilical hernia.. Lumbar spine demonstrates moderate spondylosis. Bilateral hip prostheses are noted The left adnexal cyst has decreased in size since prior study CT/Abdomen/Pelvis WITH Contrast IMPRESSION: No acute abnormality Hepatomegaly and nonspecific fatty infiltration of the liver. Status post cholecystectomy and appendectomy. small left ovarian cyst Multiple other findings as above Electronically Signed: Eleazar Venegas MD at 20:36 EDT , Service support , CC: Kathleen Newman MD; Sukhdeep Matthews DO Technical Staff Assistant: Signed Observed: 12/21/2017 Status: F Source: FL[place] CDIFF (MOLECULAR) 9:25 AM [facility] REPOSITORY Order Date: 12/21/17 Has pt arrived? Y Cdiff-Molecular Normal Reference Range = Negative Copy of report sent to Infection Control Printer [id number] 12/22/17 1143 MANN. RESULTS CALLED TO JOCELYNE ALATORRE 12/22/17 1143 Heaven Daniels. REPORT READ BACK BY SAME. C. Diff DNA Positive-Toxigenic C. Difficile DNA Detected NAAT METHOD Testing was performed using nucleic acid amplification ORGANISM 1: Toxigenic C. difficile DNA Performed By: #### M100.6796 #### [facility] [address] [place], [address] Observed: 12/21/2017 Status: F Source: [place] ENTERIC PATHOGEN 9:25 AM [facility] PANEL STOOL REPOSITORY Order Date: 12/21/17 Has pt arrived? Y EP PANEL STOOL Normal Reference Range = Not Detected Not detected for Campylobacter group, Salmonella species, Shigella species, Vibrio Group, Yersinia enterocolitica, EHEC (Shiga Toxin 1, Shiga Toxin 2), Norovirus Gl/Gll, and Rotavirus A. Other common stool pathogens are not detected on this panel include: Aeromonas/Plesiomonas or parasites. Order testing for these organisms separately if suspected. This is an amplified DNA test which makes it both specific and sensitive. CAMPYLOBACTER Not Detected Salmonella Not Detected Shigella sp. Not Detected Shiga Toxin Not Detected Yersinia Not Detected VIBRIO Not Detected Norovirus Not Detected Rotavirus Not Detected Performed By: #### M100.637 #### [facility] [address] [place], [address] EMERGENCY DEPARTMENT Observed: 12/13/2017 Status: F Source: [place] SUMMARY 5:05 PM [facility] REPOSITORY [facility] Medical Records Department [address] [place] [address] Emergency Department Summary 12/13/17 0926 MR#: [id number] Acct: [id number] Name: HEAVEN MONROE Rep #: [id number] : 1955 62 From: Gerardo Aguilar MD PCP: Sukhdeep Matthews DO Status: DEP ER - ER Visit Summary Date of Service: 12/13/17 Addendum: This patient was checked out to me by Dr. Sheldon with period of observation pending. Received a dose of Rocephin IV. She complained of heartburn and was given Maalox and Zofran IV. She is resting comfortably. She has been able to ambulate about the emergency part without difficulty. Treatment Plan: Patient will be discharged on Keflex. She is instructed not to take her Coumadin for the next 2 days and to get her INR checked again. She will be placed on Zofran and Bentyl. Follow-up her primary care physician 1-2 days if not improving. Return to the emergency department for any worsening symptoms. Disposition: To home in improved and stable condition. Impression: 1. UTI. 2. Vomiting/diarrhea. 3. Coumadin coagulopathy. This note was generated with Kreix dictation software. It may contain incorrect words, spelling, and punctuation that were not noted in review of the chart prior to signing ED Disposition - Plan for ED Patient: Chief Complaint: Nausea/Vomiting/Diarrhea Instructions: ED Vomiting Diarrhea Nonspecific Ad Prescriptions: Ondansetron [Zofran Odt] 4 mg PO Q8H PRN PRN #10 tablet PRN Reason: Nausea Cephalexin [Keflex] 500 mg PO Q6 #24 capsule Dicyclomine HCl [Bentyl] 20 mg PO TIDAC #20 capsule Referrals: Sukhdeep Matthews, [Primary Care Provider] - 1-2 Days if not improving What to do if you have Problems For any increased pain, shortness of breath, bleeding, nausea or vomiting, chest pain, or any unexpected problems, contact your Primary Care Provider. Call [facility] ([phone]) or report to the closest Emergency Room. Call 911 if necessary. 12/13/17 1705 <Electronically signed by Gerardo Aguilar MD> Date Gerardo Aguilar MD Cosigner Signature (If Indicated): Date CC: Sukhdeep Matthews DO EMERGENCY DEPARTMENT Observed: 12/13/2017 Status: F Source: [place] SUMMARY 6:58 AM [facility] REPOSITORY [facility] Medical Records Department [address] [place] [address] Emergency Department Summary 12/13/17 0654 MR#: [id number] Acct: [id number] Name: HEAVEN MONROE Rep #: [id number] : 1955 62 From: Sage Carrero PCP: Sukhdeep Matthews DO Status: PRE ER - ER Visit Summary Date of Service: 12/13/17 Chief Complaint: Nausea, vomiting, diarrhea History of Present Illness: The patient is a 62 F presents initially with diarrhea 2 days ago, total of 20 episodes, last time was prior to arrival. No recent antibiotics. No melena or hematochezia. Also states 2 days ago had vomiting of 6-7 episodes, none for the past day. Currently nausea, states he is trying to keep up with fluids. Denies abdominal pain. Denies fever, chills, sweats. No cough or chest pains. States his urine frequency and dysuria a few days ago which resolved with cranberry. No other complaints. 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 Physical Examination: General: Alert and oriented 3, no acute distress HEENT: Normocephalic, atraumatic. Mild dry mucosa membranes Neck: supple, nontender. Cardiovascular: Regular rate and rhythm, no murmurs Respiratory: Normal breath sounds, symmetric, no distress Abdomen: Soft, nontender, nondistended. Negative Hassan's or McBurney's tenderness. Extremities: Nontender, no edema, pulses intact 4 Neuro: no focal neurological deficits. Test Results: [] Emergency Department Course and Treatment: Patient nonsurgical abdomen. Initial triage blood pressure 79/57, rechecked in the room was 126/79. Patient mild dry mucosa membranes. Given IV fluids, Zofran for nausea. Will check abdominal labs including INR. UA also sent for recent dysuria and frequency. Patient will be signed out to oncoming physician. Treatment Plan: [] Disposition: Pending Impression: 1. Nausea, vomiting, diarrhea This note was generated with Kreix dictation software. It may contain incorrect words, spelling, and punctuation that were not noted in review of the chart prior to signing ED Disposition - Plan for ED Patient: Chief Complaint: Nausea/Vomiting/Diarrhea Referrals: Sukhdeep Matthews DO [Primary Care Provider] - What to do if you have Problems For any increased pain, shortness of breath, bleeding, nausea or vomiting, chest pain, or any unexpected problems, contact your Primary Care Provider. Call [facility] ([phone]) or report to the closest Emergency Room. Call 911 if necessary. 12/13/17 0658 <Electronically signed by Sage Carrero> Date Sage Carrero Cosigner Signature (If Indicated): Date CC: Sukhedep Matthews DO URINALYSIS, COMPLETE Collected: 12/13/2017 Status: F Source: [place] 6:50 AM [facility] REPOSITORY Order Comment: Order Date: 12/13/17 How was Urine Obtained? CLEAN CATCH TYPE CODE TESTS RESULT OUT OF RANGE REFERENCE UNITS LAB L400.3000 Yellow COLOR Normal YELLOW LAB L400.3050 Clear Normal CLARITY Cloudy LAB L400.3200 Normal mg/dl Normal GLUCOSE, UR Normal LAB L400.3300 Negative mg/dL Normal BILIRUBIN URINE Negative LAB L400.3400 Negative mg/dl High 5 KETONE UR LAB L400.3465 1.002-1.030 Normal SP.GR. DIPSTX 1.020 LAB L400.3550 5.0 - 8.0 pH UR Normal 6.0 LAB L400.3600 Negative mg/dl High PROT 30 DIPSTX LAB L400.3700 Normal mg/dl Normal UROBILI Normal LAB L400.3750 Negative High NITRITE UR Positive LAB L400.3780 Negative /ul High 50 OCCULT BLOOD-UR LAB L400.3800 Negative /ul High LEUK ESTERASE 500 LAB L400.4050 0-5 /hpf WBC Normal 10-25 SEEN LAB L400.4100 0-5 /hpf Normal RBC-UA 0-5 SEEN LAB L400.4150 5-10 /hpf SQUAM Normal EPI 50-100 SEEN LAB L400.4300 None Seen /hpf 0 Normal BACTERIA SEEN LAB L400.4350 <or=2+ /hpf 0 Normal MUCUS, URINE SEEN Performed By: #### L400.0001 #### [facility] [address] [place], [address] Observed: 12/13/2017 Status: F Source: FLIP CULTURE, URINE 6:50 AM [facility] REPOSITORY Order Date: 12/13/17 Urine Culture ORGANISM 1: Presumptive E. coli Beverly Count 50,000-80,000 Presumptive E. coli: REACTION Amoxacillin/Clavulanic Acid $ 4 S Ampicillin $ >=32 R Ampicillin/Sulbactam $ 16 I Cefazolin $ <=4 S Cefepime $ <=1 S Ceftriaxone $ <=1 S Ciprofloxacin $ >=4 R ESBL - Ertapenim $$$ <=0.5 S Gentamicin $ <=1 S Imipenem *NF <=0.25 S Levofloxacin $ >=8 R Nitrofurantoin $ <=16 S Piperacillin/Tazobactam $$ <=4 S Tobramycin $ <=1 S Trimethoprim/Sulfametho $ >=320 R (NF) indicates non-formulary drug at [facility]. Approval by Infectious Disease Specialist required before non-formulary drugs may be ordered and/or dispensed. Performed By: #### M100.0650 #### [facility] [place], [address] CBC W/DIFF, AUTOMATED Collected: 12/13/2017 Status: F Source: [place] 6:25 AM [facility] REPOSITORY TYPE CODE TESTS RESULT OUT OF RANGE REFERENCE UNITS LAB L100.1000 4.4-11.0 K/mm3 Normal WBC 9.0 LAB L100.1200 4.2-5.4 M/mm3 Normal RBC 5.17 LAB L100.1300 12.0-15.0 g/dl Normal HGB 13.9 LAB L100.1400 37-47 % Normal HCT 43.1 LAB L100.1500 81-99 fL Normal MCV 83.4 LAB L100.1600 27.0-32.0 pg Low MCH 26.9 LAB L100.1700 32-36 g/gl Normal MCHC 32.3 LAB L100.1810 11.6-14.6 % High RDW CV 17.0 LAB L100.1820 35.1-43.9 fl High RDW SD 51.4 LAB L100.1900 150-450 K/mm3 High PLT 504 LAB L100.2000 6.2-12.0 fl Normal MPV 9.4 LAB L100.2100 47-70 % High NEUT% 74.3 LAB L100.2200 19-41 % Low LY% 18.1 LAB L100.2300 0-10 % Normal MONO% 6.6 LAB L100.2400 0-5 % Normal EO% 0.7 LAB L100.2500 0-1 % Normal BASO% 0.1 LAB L100.2550 0.0-0.9 % Normal IM GRAN % 0.200 Result Comment: IG% - Immature Granulocytes (promyelocytes, myelocytes and metamyelocytes) > 1% indicates that a LEFT SHIFT is Present. LAB L100.2620 2.0-7.7 X10 3/uL Normal Absolute Neut 6.7 LAB L100.2720 0.83-4.51 X10 3/ul Normal Absolute Lymph 1.63 Performed By: #### L100.0100 #### [facility] [address] [place], [address] COMPREHENSIVE METABOLIC Collected: 12/13/2017 Status: F Source: [facility] 6:25 AM [facility] REPOSITORY TYPE CODE TESTS RESULT OUT OF RANGE REFERENCE UNITS LAB L501.0100 74-106 mg/dL High GLU 180 Result Comment: Fasting Glucose result greater than or equal to 126 mg/dL suggests DIABETES MELLITUS per A.D.A. criteria. Please note revised GLUCOSE reference range effective 2017. LAB L501.1000 7-18 mg/dL Normal BUN 12 LAB L501.1100 0.55-1.02 mg/dL Normal CREAT,SERUM 0.72 Result Comment: The validity of the calculated GFR AND GFRAA in patients over 70 years has not been determined. Clinical correlation is essential. LAB L501.1110 >60 mL/min Normal EST GFR 88 Result Comment: Non- GFR Calc LAB L501.1115 >60 mL/min Normal EST GFR - AA 106 Result Comment: GFR Calc LAB L501.1255 ml/min Normal Estimated CRCL 69.06 LAB L501.1300 10-20 RATIO Normal BUN/CRE 16.8 LAB L501.1500 6.4-8. g/dL Normal 2 T PROT 7.7 LAB L501.1800 3.2-5. g/dL Normal 0 ALB 3.6 LAB L501.1950 2.2-4. g/dL Normal 2 GLOB 4.1 LAB L501.2000 0.9-2. RATIO Normal 4 A/G 0.9 LAB L501.2200 8.5-10 mg/dL Low .1 CA 8.4 LAB L501.4100 15-37 U/L Low AST 11 LAB L501.4305 45-117 U/L Normal ALK P 69 LAB L501.4405 13-56 U/L Normal ALT 20 Result Comment: Please note revised ALT reference range effective 2017. LAB L501.4600 0.20-1.00 mg/dL Normal T BILI 0.40 LAB L501.5300 136-145 mmol/L Normal NA 138 LAB L501.5600 3.5-5.1 mmol/L Low K 3.3 LAB L501.5900 98-107 mmol/L Normal CL 107 LAB L501.6100 21.0-32.0 mmol/L Normal CO2 24.0 LAB L501.6200 5-15 Normal GAP 7 Performed By: #### L500.4050, L501.2450 #### [facility] [address] [place], [place], [address] LIPASE Collected: 12/13/2017 Status: F Source: FL[place] 6:25 AM [facility] REPOSITORY TYPE CODE TESTS RESULT OUT OF REFERENCE UNITS RANGE LAB L501.2450 73-393 U/L Low LIPASE 53 Performed By: #### L500.4050, L501.2450 #### [facility] [address] [place], [address] PROTHROMBIN TIME W/INR Collected: 12/13/2017 Status: F Source: [place] 6:25 AM [facility] REPOSITORY TYPE CODE TESTS RESULT OUT OF RANGE REFERENCE UNITS LAB L300.4150 11.7-14.9 SECONDS High PROTIME 26.2 LAB L300.4200 Normal INR 2.4 Performed By: #### L300.3900 #### [facility] [address] [place], [place], [address] HEMOGLOBIN A1C Collected: 11/16/2017 Status: F Source: [place] 1:50 PM [facility] REPOSITORY TYPE CODE TESTS RESULT OUT OF RANGE REFERENCE UNITS LAB L501.9985 4.2-6.3 % High HGB A1C 7.8 Performed By: #### L501.9985 #### [facility] [address] [place], [place], [address] COMPREHENSIVE METABOLIC Collected: 11/16/2017 Status: F Source: FLIP [facility] 1:50 PM [facility] REPOSITORY TYPE CODE TESTS RESULT OUT OF RANGE REFERENCE UNITS LAB L501.0100 74-106 mg/dL High GLU 140 Result Comment: Fasting Glucose result greater than or equal to 126 mg/dL suggests DIABETES MELLITUS per A.D.A. criteria. Please note revised GLUCOSE reference range effective 2017. LAB L501.1000 7-18 mg/dL High BUN 19 LAB L501.1100 0.55-1.02 mg/dL Normal CREAT,SERUM 0.66 Result Comment: The validity of the calculated GFR AND GFRAA in patients over 70 years has not been determined. Clinical correlation is essential. LAB L501.1110 >60 mL/min Normal EST GFR 97 Result Comment: Non- GFR Calc LAB L501.1115 >60 mL/min Normal EST GFR - AA 117 Result Comment: GFR Calc LAB L501.1300 10-20 RATIO High BUN/CRE 28.9 LAB L501.1500 6.4-8.2 g/dL T Normal PROT 6.9 LAB L501.1800 3.2-5.0 g/dL Normal ALB 3.5 LAB L501.1950 2.2-4.2 g/dL Normal GLOB 3.4 LAB L501.2000 0.9-2.4 RATIO Normal A/G 1.0 LAB L501.2200 8.5-10.1 mg/dL CA Normal 8.8 LAB L501.4100 15-37 U/L Low AST 14 LAB L501.4305 45-117 U/L Normal ALK P 56 LAB L501.4405 13-56 U/L Normal ALT 32 Result Comment: Please note revised ALT reference range effective 2017. LAB L501.4600 0.20-1.00 mg/dL Normal T BILI 0.30 LAB L501.5300 136-145 mmol/L Normal NA 140 LAB L501.5600 3.5-5.1 mmol/L Normal K 3.8 LAB L501.5900 98-107 mmol/L Normal CL 106 LAB L501.6100 21.0-32.0 mmol/L Normal CO2 25.0 LAB L501.6200 5-15 Normal GAP 9 Performed By: #### L500.4050, L500.4100, L501.5200, L501.9520 #### [facility] [address] [place], [place], [address] LIPID PROFILE Collected: 11/16/2017 Status: F Source: [place] 1:50 PM [facility] REPOSITORY TYPE CODE TESTS RESULT OUT OF RANGE REFERENCE UNITS LAB L501.4900 200 mg/dL Normal CHOL 124 Result Comment: <200 mg/dL Desirable 200-240 mg/dL Borderline >240 mg/dL High Risk LAB L501.5000 mg/dL Normal TRIG 169 Result Comment: The drugs N-Acetylcysteine and Metamizole may falsely depress this assay. Serum Triglycerides Reference Interval Normal <150 mg/dL Borderline high 150 - 199 mg/dL High 200 - 499 mg/dL Very High > or = 500 mg/dL LAB L501.6400 mg/dL Normal HDL 51 Result Comment: The drugs N-Acetylcysteine and Metamizole may falsely depress this assay. Reference Range HDL <40 mg/dL Low HDL Cholesterol HDL >or= 60 mg/dL High HDL Cholesterol LAB L501.6500 0-130 mg/dL Normal LDL 39 LAB L501.6600 5-40 mg/dL Normal VLDL 34 Performed By: #### L500.4050, L500.4100, L501.5200, L501.9520 #### [facility] [address] [place], [place], [address] MAGNESIUM Collected: 11/16/2017 Status: F Source: [place] 1:50 PM [facility] REPOSITORY TYPE CODE TESTS RESULT OUT OF RANGE REFERENCE UNITS LAB L501.5200 1.6-2.6 mg/dL Normal MG 1.7 Result Comment: Please note revised Magnesium reference range effective 2017. Performed By: #### L500.4050, L500.4100, L501.5200, L501.9520 #### [facility] [address] [place], [address] THYROID STIM HORMONE Collected: 11/16/2017 Status: F Source: FLIP ([facility]) 1:50 PM [facility] REPOSITORY TYPE CODE TESTS RESULT OUT OF RANGE REFERENCE UNITS LAB L501.9520 0.358-3.74 uIU/mL Normal TSH 2.22 Performed By: #### L500.4050, L500.4100, L501.5200, L501.9520 #### [facility] [address] [facility] [place], [address] CBC W/DIFF, AUTOMATED Collected: 11/16/2017 Status: F Source: FL[place] 1:50 PM [facility] REPOSITORY TYPE CODE TESTS RESULT OUT OF RANGE REFERENCE UNITS LAB L100.1000 4.4-11.0 K/mm3 Normal WBC 10.8 LAB L100.1200 4.2-5.4 M/mm3 Normal RBC 4.72 LAB L100.1300 12.0-15.0 g/dl Normal HGB 12.3 LAB L100.1400 37-47 % Normal HCT 39.7 LAB L100.1500 81-99 fL Normal MCV 84.1 LAB L100.1600 27.0-32.0 pg Low MCH 26.1 LAB L100.1700 32-36 g/gl Low MCHC 31.0 LAB L100.1810 11.6-14.6 % High RDW CV 16.5 LAB L100.1820 35.1-43.9 fl High RDW SD 50.1 LAB L100.1900 150-450 K/mm3 Normal PLT 371 LAB L100.2000 6.2-12.0 fl Normal MPV 9.5 LAB L100.2100 47-70 % Normal NEUT% 69.3 LAB L100.2200 19-41 % Normal LY% 23.8 LAB L100.2300 0-10 % Normal MONO% 5.1 LAB L100.2400 0-5 % Normal EO% 1.5 LAB L100.2500 0-1 % Normal BASO% 0.1 LAB L100.2550 0.0-0.9 % Normal IM GRAN % 0.200 Result Comment: IG% - Immature Granulocytes (promyelocytes, myelocytes and metamyelocytes) > 1% indicates that a LEFT SHIFT is Present. LAB L100.2620 2.0-7.7 X10 3/uL Normal Absolute Neut 7.5 LAB L100.2720 0.83-4.51 X10 3/ul Normal Absolute Lymph 2.57 Performed By: #### L100.0100 #### [facility] [address] [place], [address] MICROALB:CREAT Collected: 11/16/2017 Status: F Source: [place] RATIO,RANDOM UR 1:50 PM [facility] REPOSITORY TYPE CODE TESTS RESULT OUT OF RANGE REFERENCE UNITS LAB L501.1200 NO RANGE EST. mg/dL Normal UR CREAT 130.00 LAB L502.0500 NO RANGE EST. mg/L Normal 68.6 MICROALBUMIN ,UR LAB L502.0600 <30 mg/g CRE mg/g CRE High 52.8 MALB:CREAT Performed By: #### L502.0250 #### [facility] [address] [place], [address] SCREENING MAMM (CAD), Observed: 10/24/2017 Status: F Source: [place] BILAT 4:01 PM [facility] REPOSITORY [facility] Imaging Services [address] [place] [address] SCREENING MAMM (CAD), BILAT MR#: [id number] Acct: [id number] Name: HEAVEN MONROE Rep #: [id number] : 1955 F 62 From: Darius Marin MD PCP: Sukhdeep Matthews DO Status: [facility] CL Study: SCREENING MAMM (CAD), BILAT Date of Exam: 10/24/17 Exam# [id number] Ordering Dr: Le Abreu ANIMAL THERAPIST-Misael MAMMOGRAPHY - BILATERAL SCREENING REASON FOR EXAM: Female, 62 years old. Routine annual screening examination. PERTINENT HISTORY: Aunt with breast cancer. TECHNIQUE: Digital bilateral breast liborio (3D mammographic acquisition) in the CC and MLO projections. 2-D mediolateral oblique (MLO) and craniocaudad (CC) views of both breasts were obtained. CAD: Full Field Digital Mammography with Computer Added Detection was performed. COMPARISON: Comparison is made with prior study dated December 09, 2015. FINDINGS: Breast Composition: The breasts are almost entirely fatty. There are no dominant masses or suspicious calcifications. No other significant abnormalities are identified. There has been no significant change since the prior study. HPBI/SCREENING MAMM (CAD), BILAT IMPRESSION: Stable bilateral screening mammogram. Yearly follow-up mammogram recommended. (A) ASSESSMENT CATEGORY: BIRADS Category 1: Negative. A letter regarding these results will be sent to the patient by the facility within 30 days. Approximately 10% of breast cancers are not detected by mammography. A normal mammogram should not delay biopsy of a clinically suspicious abnormality. [id number] Electronically Signed: Darius Marin MD at 9:39 EST Tel [phone], Service support , CC: DEBORA Abreu; Sukhdeep Matthews DO Technical Staff Assistant: Signed BASIC METABOLIC Collected: 09/21/2017 Status: F Source: FLIP PROFILE (BMP) 11:15 AM [facility] REPOSITORY TYPE CODE TESTS RESULT OUT OF RANGE REFERENCE UNITS LAB L501.0100 70-110 mg/dL High GLU 172 Result Comment: Fasting Glucose result greater than or equal to 126 mg/dL suggests DIABETES MELLITUS per A.D.A. criteria. LAB L501.1000 7-18 mg/dL Normal BUN 17 LAB L501.1100 0.55-1.02 mg/dL Normal CREAT,SERUM 0.59 Result Comment: The validity of the calculated GFR AND GFRAA in patients over 70 years has not been determined. Clinical correlation is essential. LAB L501.1110 >60 mL/min Normal EST GFR 109 Result Comment: Non- GFR Calc LAB L501.1115 >60 mL/min Normal EST GFR - AA 132 Result Comment: GFR Calc LAB L501.1300 10-20 RATIO High BUN/CRE 28.7 LAB L501.2200 8.5-10.1 mg/dL CA Normal 8.7 LAB L501.5300 136-145 mmol/L NA Normal 141 LAB L501.5600 3.5-5.1 mmol/L Low K 3.3 LAB L501.5900 98-107 mmol/L CL Normal 103 LAB L501.6100 21.0-32.0 mmol/L Normal CO2 30.0 LAB L501.6200 5-15 Normal GAP 8 Performed By: #### L500.2500 #### [facility] [address] [place], [place], [address] ALLERGIES ALLERGIES DATE TYPE / CODE NAME / CODE REACTION SEVERITY SOURCE 08/19/2018 Drug propoxyphene Unknown Unknown [place] Allergy/416 napsylate/[id number] [facility] [id number][facility] ED [facility]) Repository 08/19/2018 Drug KENYA cough Unknown [place] Allergy/416 Inhibitors/[id number] [facility] 432143([facility] ED CT) Repository 08/19/2018 Drug clindamycin/[id number] Hives Unknown [place] Allergy/416 794(RXNORM) Formerly [facility] 931947([facility] ED CT) Repository 08/19/2018 Drug liraglutide/[id number] lump in throat Unknown [place] Allergy/416 773(RXNORM) Formerly [facility] 239442([facility] ED CT) Repository ENCOUNTERS ENCOUNTERS ADMIT/DISCHARGE ACCOUNT ADMITTING ENCOUNTER LOCATION SOURCE NUMBER CLASS 08/19/2018/ [id number] [place] [facility] 9 [facility] ing:ED Repository 08/19/2018 [id number] Amb[place] [facility] ing:LAB.FUTUR Repository E 05/31/2018 [id number] Ambulatory [place] 0 [facility] ing:NS Repository 05/03/2018 [id number] [place] [facility] ing:BFHLAB Repository 04/25/2018/ [id number] Ambulatory Flip [place] 8 9 [facility] ing:NS Repository 04/09/2018/ [id number] Ambulatory [place] [facility] 8 3 [facility] Repository 04/05/2018/ [id number] Ambulatory Flip [place] 8 8 [facility]NS Repository 04/03/2018 [id number] Ambulatory Flip [place] 9 [facility] ing:SL Repository 02/14/2018 [id number] Ambulatory Flip [place] 8 [facility] ing:MTRAD Repository 02/01/2018 [id number] Ambulatory [place] Fl[place] 9 [facility] ing:BFHLAB Repository 12/25/2017 [id number] Ambulatory Flip [place] 1 [facility] Repository 12/25/2017 [id number] Ambulatory Flip [place] 0 [facility] ing:LAB.FUTUR Repository E 12/21/2017/ [id number] Benjy Olguin Inpatient [place] 0 [facility] Hospital ing:LN3Ensu: Repository [id number]: 1 12/21/2017 [id number] Benjy Olguin Ambulatory [facility] [place] [facility] 12/21/2017 [id number] Benjy Olguin Ambulatory [facility]B [place] [facility] Repository 12/21/2017 [id number] Benjy Olguin Ambulatory [facility]B [place] [facility] Repository 12/13/2017/ [id number] Emergency Flip [place] 8 0 [facility]ED Repository 11/16/2017 [id number] Ambulatory [place] 1 [facility] ing:LAB.FUTUR Repository E 10/24/2017 [id number] Ambulatory Flip [place] 2 [facility] ing:BI Repository 09/21/2017 [id number] Ambulatory [place] Flip 5 [facility] ing:BFHLAB Repository 09/07/2017/ [id number] Ambulatory BMSBuilding:B [place] 7 [facility] Repository PAYERS PAYERS ENCOUNTER GUARANTOR PAYER SUBSCRIBER SOURCE 08/19/2018 HE[place]EN L Primary Insurance:MMO HEAVEN L [place] [id number] MEDICAREPolicy SPECHTDOB: [facility] PRIYANKA Number: [id number], [place] [id number] Repository 92922Lyu: (330) Date:0989-30-52SZ [phone] () [address] [address]CO: 08/19/2018 Secondary NOT GIVENUNK [place] Insurance:SELF PAY [facility] Number: Effective Repository Date:2018-08-19 08/19/2018 HE[place]EN L Primary Insurance:MMO HEAVEN L [place] [id number] MEDICAREPolicy SPECHTDOB: [facility]ly [facility] PRIYANKA Number: [id number], [place] [id number] Repository 07991Ypo: (330) Date:4341-49-57XU [phone] () [address] [address]NS: 08/19/2018 Secondary NOT GIVENUNK [place] Insurance:SELF PAY [facility] Number: Effective Repository Date:2018-05-23 05/31/2018 HEAVEN L Primary Insurance:MMO HEAVEN L [place] [id number] MEDICAREPolicy SPECHTDOB: [facility]ly [facility] PRIYANKA Number: [id number], [place] [id number] Repository 15788Bro: (330) Date:7255-13-03FX [phone] () [address] [place] [address]EG: 05/31/2018 Secondary NOT GIVENUNK [place] Insurance:SELF PAY [facility] Number: Effective Repository Date:2018-05-25 05/03/2018 HEAVEN L Primary Insurance:MMO HEAVEN L [place] [id number] [facility]IC[facility] Number: [id number], [place] [id number] Repository 13925Zul: (330) Date:9930-75-55OW [phone] () [address] [place] [address]BV: 05/03/2018 Secondary NOT GIVENUNK [place] Insurance:SELF PAY [facility] Effective Repository Date:2018-05-03 04/25/2018 HEAVEN L Primary Insurance:MMO HEAVEN L [place] [id number] MEDICAREPolicy SPECHTDOB: [facility] PRIYANKA Number: [id number], [place] [id number] Repository 618[address]Yhj: (330) Date:4193-01-08SZ [phone] () [address] [place] [address]CF: 04/25/2018 Secondary NOT GIVENUNK [place] Insurance:SELF PAY [facility] Number: Effective Repository Date:2018-04-24 04/09/2018 HEAVEN L Primary Insurance:MMO HEAVEN L [place] [id number] MEDICAREPolicy SPECHTDOB: [facility] PRIYANKA Number: [id number], [place] [id number] Repository 62567Bal: (330) Date:7383-30-12MK [phone] () [address] [place] [address]GH: 04/09/2018 Secondary NOT GIVENUNK [place] Insurance:SELF PAY [facility] Number: Effective Repository Date:2018-04-02 04/05/2018 HEAVEN L Primary Insurance:MMO HEAVEN L [place] [id number] MEDICAREPolicy SPECHTDOB: [facility] PRIYANKA Number: [id number], [place] [id number] Repository 22747Bch: (330) Date:0143-50-63FH [phone] () [address] [place] [address]GZ: 04/05/2018 Secondary NOT GIVENUNK [place] Insurance:SELF PAY [facility] Number: Effective Repository Date:2018-03-14 04/03/2018 HEAVEN L Primary Insurance:MMO HEAVEN L [place] [id number] MEDICAREPolicy SPECHTDOB: [facility] PRIYANKA Number: [id number], [place] [id number] Repository 41892Xqc: (330) Date:7932-99-99RV [phone] (HP) [address] [place] [address]EH: 04/03/2018 Secondary NOT GIVENUNK [place] Insurance:SELF PAY [facility] Number: Effective Repository Date:2018-03-26 02/14/2018 [place] Primary Insurance:MMO HEAVEN L [place] [id number] MEDICAREPolic SPECHTDOB: [facility] PRIYANKA Number: [id number], [place] [id number] Repository 516[address]Iqd: (330) Date:2494-68-00ON [phone] (HP) [address] [place] [address]GU: 02/14/2018 Secondary NOT GIVENUNK [place] Insurance:SELF PAY [facility] Number: Effective Repository Date:2018-02-14 02/01/2018 [place] Primary Insurance:MMO HEAVEN L [place] [id number] [facility] SPECHTDOB: [facility] PRIYANKA Number: [id number], [place] [id number] Repository 99962Cvg: (330) Date:8290-83-16GA [phone] (HP) [address] [place] [address]VQ: 02/01/2018 Secondary NOT GIVENUNK [place] Insurance:SELF PAY [facility] Number: Effective Repository Date:2018-02-01 12/25/2017 [place] Primary Insurance:MMO HEAVEN L [place] [id number] MEDICAREPolic SPECHTDOB: [facility] PRIYANKA Number: [id number], [place] [id number] Repository 15947Fro: (330) Date:2192-31-87MC [phone] (HP) [address] [place] [address]SY: 12/25/2017 Secondary NOT GIVENUNK [place] Insurance:SELF PAY [facility] Number: Effective Repository Date:2017-12-25 12/25/2017 [place] Primary Insurance:MMO HEAVEN L [place] [id number] MEDICAREPolicy SPECHTDOB: [facility] PRIYANKA Number: [id number], [place] [id number] Repository 34936Aks: (330) Date:5488-10-44JV [phone] (HP) [address] [address]OX: 12/25/2017 Secondary NOT GIVENUNK [place] Insurance:SELF PAY [facility] Number: Effective Repository Date:2017-12-19 12/21/2017 [place] Primary Insurance:MMO HEAVEN L [place] [id number] MEDICAREPolicy SPECHTDOB: [facility] PRIYANKA Number: [id number], [place] [id number] Repository 694[address]Fuz: (330) Date:0486-73-03RJ [phone] (HP) [address] [place] [address]GL: 12/21/2017 Secondary NOT GIVENUNK [place] Insurance:SELF PAY [facility] Number: Effective Repository Date:2017-12-21 12/21/2017 [place] Primary Insurance:MMO HEAVEN L [place] [id number] MEDICAREPolicy SPECHTDOB: [facility] PRIYANKA Number: [id number], [place] [id number] Repository 20554Fqa: (330) Date:5246-25-23LW [phone] (HP) [address] [place] [address]EF: 12/21/2017 Secondary NOT GIVENUNK [place] Insurance:SELF PAY [facility] Number: Effective Repository Date:2017-12-21 12/21/2017 [place] Primary Insurance:MMO HEAVEN L [place] [id number] MEDICAREPolicy SPECHTDOB: [facility] PRIYANKA Number: [id number], [place] [id number] Repository 47627Kst: (330) Date:7400-01-10BY [phone] (HP) [address] [place] [address]YE: 12/21/2017 Secondary NOT GIVENUNK [place] Insurance:SELF PAY [facility] Number: Effective Repository Date:2017-12-21 12/21/2017 [place] Primary Insurance:MMO HEAVEN L [place] [id number] MEDICAREPolicy SPECHTDOB: Community PRIYANKA Number: [id number], [place] [id number] Repository 79[address]Npb: (330) Date:9555-01-24SF [phone] (HP) [address] [address]GQ: 12/21/2017 Secondary NOT GIVENUNK [place] Insurance:SELF PAY [facility] Number: Effective Repository Date:2017-12-21 12/13/2017 [place] Primary Insurance:MMO HEAVEN L [place] [id number] MEDICAREPolicy SPECHTDOB: [facility] [place] Number: [id number] [place], [place] [id number] Repository 00719Rjk: (330) Date:0738-91-67VW [phone] () [address] [place] [phone]: 12/13/2017 Secondary NOT GIVENUNK [place] Insurance:SELF PAY [facility] Number: Effective Repository Date:2017-12-13 11/16/2017 [place] Primary Insurance:MMO HEAVEN L [place] [id number] MEDICAREPolicy SPECHTDOB: [facility] Priyanka Number: [id number] [place], [place] [id number] Repository 413[address]Pyb: (330) Date:2247-78-14JR [phone] (HP) [address] [address]CC: 11/16/2017 Secondary NOT GIVENUNK [place] Insurance:SELF PAY [facility] Number: Effective Repository Date:2017-09-25 10/24/2017 [place] Primary Insurance:MMO HEAVEN L [place] [id number] MEDICAREPolicy SPECHTDOB: [facility] Priyanka Number: [id number] [place], [place] [id number] Repository 43036Rhz: (330) Date:2356-51-12BJ [phone] () [address] [address]CX: 10/24/2017 Secondary NOT GIVENUNK [place] Insurance:SELF PAY [facility] Number: Effective Repository Date:2017-09-20 09/21/2017 [place] Primary Insurance:MMO BLAISE L [place] [id number] MEDICAREPolicy SPECHTDOB: Community [place] Number: [id number] [place], [place] [id number] Repository 818[address]Umo: (330) Date:6173-36-26LS [phone] () [address] [address]YK: 09/21/2017 Secondary NOT GIVENUNK [place] Insurance:SELF PAY [facility] Number: Effective Repository Date:2017-09-21 09/07/2017 [place] Primary Insurance:MMO HEAVEN L [place] [id number] MEDICAREPolicy SPECHTDOB: Community [place]anka Number: [id number] [place], [place] [id number] Repository 494[address]Nne: (330) Date:6777-81-72LH [phone] () [address] [address]KF: 09/07/2017 Secondary NOT GIVENUNK [place] Insurance:SELF PAY [facility] Number: Effective Repository Date:2017-08-26
== END 2018-08-19 17:11 | disposition home or self-care (01) ==
LOC: ED 15:15
PROVIDERS: Emergency Provider Emergency Medicine; Family Provider Family Medicine; PCP Family Medicine
DX: J20.9 Acute bronchitis, unspecified (principal); I11.0 Hypertensive heart disease with heart failure; I50.9 Heart failure, unspecified; E11.9 Type 2 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 without complications; E78.00 Pure hypercholesterolemia, unspecified; Z86.711 Personal history of pulmonary embolism; Z79.01 Long term (current) use of anticoagulants; Z79.84 Long term (current) use of oral hypoglycemic drugs; Z79.899 Other long term (current) drug therapy; R80.9 Proteinuria, unspecified; D68.2 Hereditary deficiency of other clotting factors
CPT/HCPCS: 36415; 71046; 80048; 80053; 80061; 82043; 82570; 83036; 83880; 84484; 85025; 85610; 93005; 94640; 96374; 99285; A4216

== ENCOUNTER 2018-10-09 11:56 | Emergency (ER) | payer MEDICARE, SELFPAY ==
[2018-10-09 11:57] VITALS: BP 170/83; PULSE 100; RESP 20; TEMP 36.8; O2SAT 96; BMI 50.3
[2018-10-09 12:18] VITALS: TEMP 36.8
--- NOTE | 2018-10-09 12:32 | VDLE_ITS ---
Reason For Study: SWELLING RIGHT GSV is normal. FV is compressible, spontaneous, phasic, competent and demonstrates normal augmentation. T/P Trunk is compressible. PTV is compressible. RT PerV is compressible. Technically difficult study due to pt body habitus. Rt CFV not visualized due to pannus. Proximal calf veins not well visualized. Rt Pop V is compressible, spontaneous and INCOMPETENT (for greater than 0.5 sec.) and demonstrates normal augmentation. Procedure Exam performed portable in ED. A preliminary report was called and/or faxed to ED. Interpretation Summary The right common femoral vein was not visualized due to the patient's body habitus. The remainder of the right lower extremity deep venous system is patent and compressible. The right popliteal vein is noted to be incompetent. The proximal calf veins were not well visualized. The right greater saphenous vein appears patent and compressible segmentally. Ordering Physician: Adan Chong Referring Physician: ELISSA DIAL Performed By: Karishma Chang, ADAN, RVT
[2018-10-09 12:58] LABS: Mucous, Urine 0 SEEN /hpf (<or=2+)
[2018-10-09 12:59] LABS: Color, Urine Yellow (Yellow); Glucose, Dipstick Normal (Normal); Ketone-Dipstick Negative (Negative); Leukocyte Esterase-Dipstick 500 /ul (Negative); Nitrite-Dipstick Negative (Negative); Occult Blood-Urine 50 /ul (Negative); Protein-Dipstick 30 mg/dl (Negative); Urine Bilirubin Dipstick Negative (Negative); Urine Clarity Cloudy (Clear); Urine Urobilinogen Normal (Normal)
[2018-10-09 13:08] LABS: Bacteria 2+ /hpf (None Seen); Red Blood Cells-Urine 0-5 SEEN /hpf (0-5); Squamous Epithelial Cells - UA 0-5 SEEN /hpf (5-10); White Blood Cells 50-100 SEEN /hpf (0-5)
[2018-10-09 13:25] VITALS: TEMP 36.8
[2018-10-09 14:06] VITALS: TEMP 36.8
--- NOTE | 2018-10-09 14:10 | ED.DCSUM_ITS ---
- ER Visit Summary Date of Service: 10/09/18 Chief Complaint: Possible urinary tract infection, possible DVT History of Present Illness: The patient is a 63 F who presents with dysuria and frequency that has been getting worse over the past 3 days. Patient describes the pain as burning. Patient states she has some mild suprapubic discomfort. Patient also admits to some mild swelling of her right leg. 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 Patient denies any fevers or chills. Patient does admit to some mild redness to her right leg. Patient denies any nausea or vomiting. Patient admits to some mild back pain. Physical Examination: Vital signs are stable. Patient is afebrile. Patient is in no acute distress. Oral mucosa is pink and moist. Neck is supple. Trachea is midline. There is no JVD noted. Heart was regular rate and rhythm. Lungs are clear and equal bilaterally. Abdomen is soft. Bowel sounds are normal. There is no tenderness. There is no guarding noted. Extremities are intact. There is 1+ edema of the right lower extremity. Pedal pulses are equal bilaterally. There is no calf tenderness noted. Homans sign is negative. Cranial nerves II through XII are intact. There are no focal motor or sensory deficits noted. Test Results: Urinalysis does show evidence of urinary tract infection. Ultrasound of the right lower extremity does not show any evidence of DVT. Emergency Department Course and Treatment: Patient was given a prescription for Bactrim. Patient was instructed to follow-up with her primary care physician in 5-7 days. Patient understood and was agreeable with the plan. All questions were answered. Disposition: Discharge home Impression: Urinary tract infection This note was generated with [employer] dictation software. It may contain incorrect words, spelling, and punctuation that were not noted in review of the chart prior to signing ED Disposition - Plan for ED Patient: Disposition: Home or Assisted Living Chief Complaint: Complaint Diagnosis: Urinary tract infection Instructions: ED UTI Cystitis Female Prescriptions: Smz/Tmp Ds [Bactrim Ds] 1 tab PO BID #6 tab Referrals: Sukhdeep Matthews DO [Primary Care Provider] -
[2018-10-09 14:13] VITALS: BP 141/75; PULSE 87; RESP 15; O2SAT 95
--- OUTSIDE RECORDS SUMMARY | 2018-12-14 08:56 | XMS RPT_ITS ---
:1955 Author Organization OHIP Support Name Relationship Address Phone D Unavailable Unavailable Unavailable FER, DIEGO Unavailable [address] + [place] [address] FER, MISBAH Unavailable [address] [place] [address] D Unavailable Unavailable Unavailable FER, DIEGO Unavailable [address] + [place] [address] FER, MISBAH Unavailable [address] [place] [address] D Unavailable Unavailable Unavailable FER, DIEGO Unavailable [address] + [place] [address] FER, MISBAH Unavailable [address] [place] [address] D Unavailable Unavailable Unavailable FER, DIEGO Unavailable [address] + [place] [address] FER, MISBAH Unavailable [address] + [place] [address] D Unavailable Unavailable Unavailable FER, DIEGO Unavailable [address] + [place] [address] FER, MISBAH Unavailable [address] + [place] [address] D Unavailable Unavailable Unavailable FER, DIEGO Unavailable [address] + [place] [address] FER, MISBAH Unavailable [address] + [place] [address] D Unavailable Unavailable Unavailable FER, DIEGO Unavailable [address] + [place] [address] FER, MISBAH Unavailable [address] + [place] [address] D Unavailable Unavailable Unavailable FER, DIEGO Unavailable [address] + [place] [address] FER, MISBAH Unavailable [address] + [place] [address] D Unavailable Unavailable Unavailable FER, DIEGO Unavailable [address] + [place] [address] FER, MISBAH Unavailable [address] + [place] [address] D Unavailable Unavailable Unavailable FER, DIEGO Unavailable [address] + [place] [address] FER, MISBAH Unavailable [address] + [place] [address] D Unavailable Unavailable Unavailable GURINDER, MISBAH Unavailable [address] + [place] [address] FER, DIEGO Unavailable [address] + [place] [address] D Unavailable Unavailable Unavailable GURINDER, MISBAH Unavailable [address] + [place] [address] FER, DIEGO Unavailable [address] + [place] [address] D Unavailable Unavailable Unavailable GURINDER, MISBAH Unavailable [address] + [place] [address] FER, DIEGO Unavailable [address] + [place] [address] D Unavailable Unavailable Unavailable GURINDER, MISBAH Unavailable [address] + [place] [address] FER, DIEGO Unavailable [address] + [place] [address] D Unavailable Unavailable Unavailable GURINDER, MISBAH Unavailable [address] + [place] [address] FER, DIEGO Unavailable [address] + [place] [address] D Unavailable Unavailable Unavailable GURINDER, MISBAH Unavailable [address] + [place] [address] FER, DIEGO Unavailable [address] + [place] [address] D Unavailable Unavailable Unavailable GURINDER, MISBAH Unavailable [address] + [place] [address] FER, DIEGO Unavailable [address] + [place] [address] D Unavailable Unavailable Unavailable GURINDER, MISBAH Unavailable [address] + [place] [address] FER, DIEGO Unavailable [address] + [place] [address] D Unavailable Unavailable Unavailable GURINDER, MISBAH Unavailable [address] + [place] [address] FER, DIEGO Unavailable [address] + [place] [address] D Unavailable Unavailable Unavailable GURINDER, MISBAH Unavailable [address] + [place] [address] FER, DIEGO Unavailable [address] + [place] [address] D Unavailable Unavailable Unavailable GURINDER, MISBAH Unavailable [address] + [place] [address] FER, DIEGO Unavailable [address] + [place] [address] D Unavailable Unavailable Unavailable GURINDER, MISBAH Unavailable [address] + [place] [address] FER, DIEGO Unavailable [address] + [place] [address] Care Team Providers Name Role Phone Byron, Elissa Primary Care Unavailable Adan Chong Attending Unavailable ByronElissa Attending Unavailable Byron, Elissa Primary Care Unavailable ByronElissa khan Attending Unavailable Byron, Elissa Primary Care Unavailable Le Abreu Attending Unavailable Le Abreu Referring Unavailable Byron, Elissa Primary Care Unavailable Byron, Elissa Primary Care Unavailable Sage Feliciano Attending Unavailable ByronElissa Attending Unavailable Byron, Elissa Primary Care Unavailable Byron, Elissa Primary Care Unavailable Clau, Benjy Admitting Unavailable Zeina Paige Attending Unavailable Clau, Benjy Admitting Unavailable Byron, Elissa Primary Care Unavailable Clau, Benjy Consulting Unavailable Bob Cardoza Attending Unavailable Clau, Benjy Admitting Unavailable Ashelfah, Ghasem Attending Unavailable Byron, Elissa Primary Care Unavailable Ashelfah, Ghasem Consulting Unavailable Clau, Benjy Admitting Unavailable Ashelfah, Ghasem Attending Unavailable Byron, Elissa Primary Care Unavailable Ashelfah, Ghasem Consulting Unavailable Ashelfah, Ghasem Attending Unavailable Byron, Elissa Primary Care Unavailable Byron, Elissa Attending Unavailable Byron, Elissa Primary Care Unavailable Seng Baez Attending Unavailable Seng Baez Referring Unavailable Byron, Elissa Primary Care Unavailable Byron, Elissa Attending Unavailable Byron, Elissa Primary Care Unavailable Byron, Elissa Attending Unavailable Byron, Elissa Referring Unavailable Byron, Elissa Primary Care Unavailable Byron, Elissa Attending Unavailable Byron, Elissa Primary Care Unavailable Byron, Elissa Attending Unavailable Byron, Elissa Primary Care Unavailable Byron, Elissa Attending Unavailable Byron, Elissa Primary Care Unavailable Byron, Elissa Attending Unavailable Byron, Elissa Primary Care Unavailable Byron, Elissa Attending Unavailable Byron, Elissa Primary Care Unavailable Byron, Elissa Primary Care Unavailable Gabino Barraza Attending Unavailable Le Abreu Attending Unavailable ByronElissa Referring Unavailable Byron, Elissa Primary Care Unavailable PROBLEMS PROBLEMS DATE TYPE CONDITION / CODE ATTENDING STATUS SOURCE 10/10/2018 Unknown R30.0 - Dysuria / ByronElissa khan Active [facility] R30.0(ICD-10) [facility] Repository 08/19/2018 Unknown I10 - Essential Byron, Elissa Active [facility] (primary) Community hypertension / Hospital I10(ICD-10) Repository 08/19/2018 Unknown E11.9 - Type 2 ByronElissa Active [facility] 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 Community without Hospital complications / Repository E11.9(ICD-10) 08/19/2018 Unknown E78.5 - Byron, Elissa Active [facility] Hyperlipidemia, Community unspecified / Hospital E78.5(ICD-10) Repository 08/19/2018 Unknown R80.9 - ByronElissa Active [facility] Proteinuria, Community unspecified / Hospital R80.9(ICD-10) Repository 08/19/2018 Unknown 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, 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 / Hospital D68.2(ICD-10) Repository 06/05/2018 Unknown H81.10 - Benign Elissa Matthews Active [facility] paroxysmal vertigo, Community unspecified ear / Hospital H81.10(ICD-10) Repository 04/05/2018 Unknown G47.33 - Elissa Matthews Active [facility] Obstructive sleep Community apnea (adult) Hospital (pediatric) / Repository G47.33(ICD-10) 02/14/2018 Unknown R06.02 - Shortness Seng Baez Active [facility] of breath / Community R06.02(ICD-10) Hospital Repository 02/01/2018 Unknown N39.0 - Urinary Elissa Matthews Active [facility] tract infection, Community site not specified Hospital / N39.0(ICD-10) Repository 02/01/2018 Unknown Z51.81 - Encounter Elissa Matthews Active [facility] for therapeutic Community drug level Hospital monitoring / Repository Z51.81(ICD-10) 12/25/2017 Unknown R19.7 - Diarrhea, Ashelfah, Active [facility] unspecified / Ghasem Community R19.7(ICD-10) Hospital Repository 10/25/2017 Unknown Z12.31 - Encounter Sutton Le Active [facility] for screening Community mammogram for Hospital malignant neoplasm Repository of breast / Z12.31(ICD-10) PROCEDURES PROCEDURES No Procedure Records FoundRESULTS RESULTS VENOUS DUPLEX LOWER Observed: 10/09/2018 Status: F Source: [facility] EXTREMITY 3:51 PM [facility] REPOSITORY [facility] Cardiovascular Services [address] [place] [address] Venous Duplex US, Unilateral 10/09/18 1245 MR#: [id number] Acct: [id number] Name: HEAVEN MONROE Rep #: [id number] : 1955 63 From: Alfredo Damico MD Attending Dr: Status: DEP ER Ordering Dr: Adan Chong DO Date: 10/09/18 Location: ED Sex: F C Admitted: Reason For Study: SWELLING RIGHT GSV is normal. FV is compressible, spontaneous, phasic, competent and demonstrates normal augmentation. T/P Trunk is compressible. PTV is compressible. RT PerV is compressible. Technically difficult study due to pt body habitus. Rt CFV not visualized due to pannus. Proximal calf veins not well visualized. Rt Pop V is compressible, spontaneous and INCOMPETENT (for greater than 0.5 sec.) and demonstrates normal augmentation. Procedure Exam performed portable in ED. A preliminary report was called and/or faxed to ED. Interpretation Summary The right common femoral vein was not visualized due to the patient's body habitus. The remainder of the right lower extremity deep venous system is patent and compressible. The right popliteal vein is noted to be incompetent. The proximal calf veins were not well visualized. The right greater saphenous vein appears patent and compressible segmentally. Ordering Physician: Adan Chong Referring Physician: ELISSA MATTHEWS Performed By: Karishma Chang, ADAN, RVT 10/09/18 1551 Date Alfredo Damico MD CC: Adan Chong DO; Elissa Matthews DO Date Dictated: 10/09/18 1245 Date Transcribed: 10/09/18 155 Assignment Manager: Signed EMERGENCY DEPARTMENT Observed: 10/09/2018 Status: F Source: [place] SUMMARY 2:10 PM [facility] REPOSITORY [facility] Medical Records Department [address] [place] [address] Emergency Department Summary 10/09/18 1405 MR#: [id number] Acct: [id number] Name: HEAVEN MONROE Rep #: [id number] : 1955 63 From: Adan Chong DO PCP: Elissa Matthews DO Status: REG ER - ER Visit Summary Date of Service: 10/09/18 Chief Complaint: Possible urinary tract infection, possible DVT History of Present Illness: The patient is a 63 F who presents with dysuria and frequency that has been getting worse over the past 3 days. Patient describes the pain as burning. Patient states she has some mild suprapubic discomfort. Patient also admits to some mild swelling of her right leg. 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 Patient denies any fevers or chills. Patient does admit to some mild redness to her right leg. Patient denies any nausea or vomiting. Patient admits to some mild back pain. Physical Examination: Vital signs are stable. Patient is afebrile. Patient is in no acute distress. Oral mucosa is pink and moist. Neck is supple. Trachea is midline. There is no JVD noted. Heart was regular rate and rhythm. Lungs are clear and equal bilaterally. Abdomen is soft. Bowel sounds are normal. There is no tenderness. There is no guarding noted. Extremities are intact. There is 1+ edema of the right lower extremity. Pedal pulses are equal bilaterally. There is no calf tenderness noted. Homans sign is negative. Cranial nerves II through XII are intact. There are no focal motor or sensory deficits noted. Test Results: Urinalysis does show evidence of urinary tract infection. Ultrasound of the right lower extremity does not show any evidence of DVT. Emergency Department Course and Treatment: Patient was given a prescription for Bactrim. Patient was instructed to follow-up with her primary care physician in 5-7 days. Patient understood and was agreeable with the plan. All questions were answered. Disposition: Discharge home Impression: Urinary tract infection This note was generated with SitScape dictation software. It may contain incorrect words, spelling, and punctuation that were not noted in review of the chart prior to signing ED Disposition - Plan for ED Patient: Disposition: Home or Assisted Living Chief Complaint: Complaint Diagnosis: Urinary tract infection Instructions: ED UTI Cystitis Female Prescriptions: Smz/Tmp Ds [Bactrim Ds] 1 tab PO BID #6 tab Referrals: Elissa Matthews, [Primary Care Provider] - What to do if you have Problems For any increased pain, shortness of breath, bleeding, nausea or vomiting, chest pain, or any unexpected problems, contact your Primary Care Provider. Call [facility] ([phone]) or report to the closest Emergency Room. Call 911 if necessary. 10/09/18 1410 <Electronically signed by Adan Chogn DO> Date Adan Chong DO Cosigner Signature (If Indicated): Date CC: Elissa Matthews DO URINALYSIS, COMPLETE Collected: 10/09/2018 Status: F Source: [facility] 12:00 AM [facility] REPOSITORY Order Comment: Order Date: 10/09/18 Has pt arrived? Y How was Urine Obtained? CLEAN CATCH TYPE CODE TESTS RESULT OUT OF RANGE REFERENCE UNITS LAB L400.3000 Yellow COLOR Normal Yellow LAB L400.3050 Clear Normal CLARITY Cloudy LAB L400.3200 Normal mg/dl Normal GLUCOSE, UR Normal LAB L400.3300 Negative mg/dL Normal BILIRUBIN URINE Negative LAB L400.3400 Negative mg/dl Normal KETONE UR Negative LAB L400.3465 1.002-1.030 Normal SP.GR. DIPSTX 1.020 LAB L400.3550 5.0 - 8.0 pH UR Normal 6.0 LAB L400.3600 Negative mg/dl High PROT 30 DIPSTX LAB L400.3700 Normal mg/dl Normal UROBILI Normal LAB L400.3750 Negative Normal NITRITE UR Negative LAB L400.3780 Negative /ul High 50 OCCULT BLOOD-UR LAB L400.3800 Negative /ul High LEUK ESTERASE 500 LAB L400.4050 0-5 /hpf WBC Normal 50-100 SEEN LAB L400.4100 0-5 /hpf Normal RBC-UA 0-5 SEEN LAB L400.4150 5-10 /hpf SQUAM Normal EPI 0-5 SEEN LAB L400.4300 None Seen /hpf 2+ Normal BACTERIA LAB L400.4350 <or=2+ /hpf 0 Normal MUCUS, URINE SEEN Performed By: #### L400.0001 #### [facility] [address] [place], [address] 12 LEAD ELECTROCARDIOGRAM Observed: 08/23/2018 Status: F Source: [place] 9:27 AM [facility] Cardiovascular Services [address] [address] 12 Lead EKG 08/19/18 1520 MR#: [id number] Acct: [id number] Name: HEAVEN MONROE Rep #: [id number] : 1955 62 From: Bernard Diaz MD [...] Normal ECG Confirmed by JOE CEDENO, BERNARD ([id number]), industrial editor KARLIE PRITCHARD ([id number]) on 08/21/2018 4:22:09 PM Referred By: KAREN Confirmed By:BERNARD DIAZ MD 08/21/18 1622 Date Bernard Diaz MD CC: Elissa Matthews DO; Gabino Barraza MD Signed EMERGENCY DEPARTMENT Observed: 08/19/2018 Status: F Source: [facility] SUMMARY 8:30 PM [facility] Medical Records Department [address] [place] [address] Emergency Department Summary 08/19/18 1515 MR#: [id number] Acct: [id number] Name: HEAVEN MONROE Rep #: [id number] : 1955 62 From: Gabino Barraza MD PCP: Elissa Matthews DO Status: DEP ER - ER [...] Acute bronchitis This note was generated with SitScape dictation software. It may contain incorrect words, spelling, and punctuation that were not noted in review of the chart prior to signing ED Disposition - Plan for ED Patient: Chief Complaint: Cough Instructions: ED Upper Resp Infec Abx Tx Prescriptions: Prednisone 10 mg PO UD #33 tab Doxycycline Monohydrate 100 mg PO BID #20 cap Referrals: Elissa Matthews, [Primary Care Provider] - What to do if you have Problems For any increased pain, shortness of breath, bleeding, nausea or vomiting, chest pain, or any unexpected problems, contact your Primary Care Provider. Call [facility] ([phone]) or report to the closest Emergency Room. Call 911 if necessary. 08/19/182029 <Electronically signed by Gabino Barraza MD> Date Gabino Barraza MD Cosigner Signature (If Indicated): Date CC: Elissa Byron DO BASIC METABOLIC Collected: 08/19/2018 Status: F Source: [facility] PROFILE (BMP) 3:45 PM [facility] REPOSITORY TYPE CODE TESTS RESULT OUT OF [...] 11 Performed By: #### L500.2500, L501.4010 #### [facility] [address] [facility] [place], [place], [address] TROPONIN-I Collected: 08/19/2018 Status: F Source: [place] 3:45 PM [facility] REPOSITORY TYPE CODE TESTS RESULT OUT OF RANGE REFERENCE UNITS LAB L501.4010 <0.045 ng/mL Normal 0.016 TROPONIN-I Result Comment: TROPONIN-I EXPECTED VALUES <0.045 Negative 0.045 - 0.590 Consistent with Cardiac Damage > OR = 0.600 Critical Value Not every elevated troponin is indicative of ID. These values should be used with clinical judgement in examining the patient's clinical picture for diagnosis. To establish a diagnosis of ID versus myocardial injury, there must be a demonstrated rise and/or fall in the troponin values, in addition to ischemic symptoms, EKG changes, new regional wall motion abnormality, and/or angiographical evidence. PLEASE NOTE: REFERENCE RANGES EDITED 18 Performed By: #### L500.2500, L501.4010 #### [facility] [address] [facility] [place], [address] CBC W/DIFF, AUTOMATED Collected: 08/19/2018 Status: F Source: [place] 3:28 PM [facility] REPOSITORY TYPE CODE TESTS RESULT OUT OF [...] Lymph 1.57 Performed By: #### L100.0100 #### [facility] [address] [place], [address] PROTHROMBIN TIME W/INR Collected: 08/19/2018 Status: F Source: [place] 3:28 PM [facility] REPOSITORY TYPE CODE TESTS RESULT OUT OF RANGE REFERENCE UNITS LAB L300.4150 11.7-14.9 SECONDS High PROTIME 19.4 LAB L300.4200 Normal INR 1.6 Performed By: #### L300.3900 #### [facility] [address] [place], [address] BNP,B-TYPE NATRIURETIC Collected: 08/19/2018 Status: F Source: [place] PEPTIDE 3:28 PM [facility] REPOSITORY TYPE CODE TESTS RESULT OUT OF RANGE REFERENCE UNITS LAB L503.6620 0-100 pg/mL Normal B-TYPE 52.1 CAROL PEP Performed By: #### L503.6620 #### [facility] [address] [place], [address] CHEST PA AND LATERAL Observed: 08/19/2018 Status: F Source: [place] 3:13 PM [facility] REPOSITORY [facility] Imaging Services [address] [place] [address] Chest PA and Lateral MR#: [id number] Acct: [id number] Name: HEAVEN MONROE Rep #: [id number] : 1955 F 62 From: Mari Delacruz MD PCP: Elissa Matthews DO Status: DEP ER Study: Chest PA and Lateral Date of Exam: 08/19/18 Exam# [id number] Ordering Dr: Gabino Barraza MD STUDY: X-RAY [...] EST Tel , Service support , CC: Elissa Matthews DO; Gabino Barraza MD Assignment Manager: Signed CBC W/DIFF, AUTOMATED Collected: 08/19/2018 Status: F Source: [place] 11:25 AM [facility] REPOSITORY TYPE CODE TESTS RESULT OUT OF [...] Lymph 2.26 Performed By: #### L100.0100 #### [facility] [address] [place], [place], [address] COMPREHENSIVE METABOLIC Collected: 08/19/2018 Status: F Source: [facility] 11:25 AM [facility] REPOSITORY TYPE CODE TESTS RESULT OUT OF [...] 12 Performed By: #### L500.4050, L500.4100 #### [facility] [address] [place], [address] LIPID PROFILE Collected: 08/19/2018 Status: F Source: [place] 11:25 AM [facility] REPOSITORY TYPE CODE TESTS RESULT OUT OF [...] 20 Performed By: #### L500.4050, L500.4100 #### [facility] [address] [place], [address] HEMOGLOBIN A1C Collected: 08/19/2018 Status: F Source: [place] 11:25 AM [facility] REPOSITORY TYPE CODE TESTS RESULT OUT OF RANGE REFERENCE UNITS LAB L501.9985 4.2-6.3 % High HGB A1C 7.7 Performed By: #### L501.9985 #### [facility] [address] [place], [address] MICROALB:CREAT Collected: 08/19/2018 Status: F Source: [place] RATIO,RANDOM UR 11:25 AM [facility] REPOSITORY TYPE CODE TESTS RESULT OUT OF RANGE REFERENCE UNITS LAB L501.1200 NO RANGE EST. mg/dL Normal UR CREAT 158.00 LAB L502.0500 NO RANGE EST. mg/L Normal 46.9 MICROALBUMIN ,UR LAB L502.0600 <30 mg/g CRE mg/g CRE Normal 29.7 MALB:CREAT Performed By: #### L502.0250 #### [facility] [address] [place], [address] SENIOR SCRUM MASTER OFFICE VISIT Observed: 07/30/2018 Status: F Source: [facility] REPORT 10:10 AM [facility] REPOSITORY [facility] 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 DatName GA/WeeksOutcome Route [facility] LgAnesthesDel LocaProviderFOB e ht en ia tn Unknown 1978 Ang lexi Unknown 1980 [place] [facility] Medical History Sprain and strain of ribs [...] Yes additional social history: Arnulfo- Retired from [employer] HPI Encounter for routine gynecological examination: Details: HEAVEN MONROE is a 61 year old who presents for annual exam/new patient. Noting urinary frequency and urgency X 1 week. Aware of elevated BP and seeing PCP for this. New diuretic in use Last PAP: 3 yr Ever History of abnormal PAP: no Last mammogram: [...] alert, oriented to person, oriented to place HENDC Head: normal to inspection Neck Neck: normal [...] 14:59 09/07/17 1649 <Electronically signed by Le BAJWAC> Date Le Brady FARM MANAGEMENT SUPERVISOR-C Cosigner Signature: Date (if applicable) CC: Observed: 05/03/2018 Status: F Source: [place] CULTURE, URINE 10:33 AM [facility] REPOSITORY Urine Culture ORGANISM 1: Escherichia coli [place] Count 80,000-100,000 ORGANISM 2: Proteus mirabilis [place] Count 25,000-50,000 Escherichia coli: REACTION Amoxacillin/Clavulanic Acid [...] <=20 S (NF) indicates non-formulary drug at [facility]. Approval by Infectious Disease Specialist required [...] >=320 R (NF) indicates non-formulary drug at [facility]. Approval by Infectious Disease Specialist required before non-formulary drugs may be ordered and/or dispensed. Performed By: #### M100.0650 #### [facility] [address] [place], [address] INITAL EVALUATION (1) Observed: 04/10/2018 Status: F Source: [place] - PT 7:02 PM [facility] REPOSITORY [facility] [address] [place] [address] Fax REHABILITATION SERVICES INITIAL EVALUATION MR#: [id number] Acct: [id number] Name: HEAVEN MONROE Rep #: [id number] : 1955 62 From: Misbah Hardy MPT Referring Dr.: Elissa Matthews DO Status: REG RCR Insurance: [employer]MO MEDICARE SELF PAY INSURANCE Patient's Visit Information HEAVEN MONROE is a 62 year old F referred to Physical Therapy by Elissa Matthews DO with a diagnosis of BPPV. [...] month ago....had it awhile before saw Dr ochoa she thought it was allergy stuff. SHe [...] to be FAXED BACK to us at [phone] for Medicare purposes. Please let me know if there are questions or concerns regarding this plan of care. Physician Signature: Date: <Electronically signed by Misbah Hardy MPT> 04/10/18 1902 CC: Elissa Matthews DO Signed For Medicare only, by signing this I certify the plan of care. Physicians Signature Date CHEST PA AND LATERAL Observed: 02/14/2018 Status: F Source: [place] 1:49 PM [facility] REPOSITORY [facility] Imaging Services [address] [place] [address] Chest PA and Lateral MR#: [id number] Acct: [id number] Name: HEAVEN MONROE Rep #: [id number] : 1955 F 62 From: Angel Alexander MD PCP: Elissa Matthews DO Status: REG CLI Study: Chest PA and Lateral Date of Exam: 02/14/18 Exam# [id number] Ordering Dr: Seng Baez MD STUDY: X-RAY CHEST REASON FOR EXAM: Female, 62 years old. Shortness of breath TECHNIQUE: PA and lateral chest COMPARISON: 12/21/2017 FINDINGS: The lungs are clear and expanded. Normal cardiomediastinal silhouette, tessie and pleural margins. No acute osseous or upper abdominal process. Scoliosis. Prior cholecystectomy. RAD/Chest PA and Lateral IMPRESSION: No acute cardiopulmonary process. Electronically Signed: Angel Catherine, at 18:54 EDT Tel , Service support , CC: Elissa Baez Assignment Manager: Signed CBC W/DIFF, AUTOMATED Collected: 02/01/2018 Status: F Source: [place] 9:50 AM [facility] REPOSITORY TYPE CODE TESTS RESULT OUT OF [...] Lymph 2.48 Performed By: #### L100.0100 #### [facility] [address] [place], [address] COMPREHENSIVE METABOLIC Collected: 02/01/2018 Status: F Source: [facility] 9:50 AM [facility] REPOSITORY TYPE CODE TESTS RESULT OUT OF [...] 7 Performed By: #### L500.4050, L500.4100 #### [facility] [address] [place], [address] LIPID PROFILE Collected: 02/01/2018 Status: F Source: [place] 9:50 AM [facility] REPOSITORY TYPE CODE TESTS RESULT OUT OF [...] 26 Performed By: #### L500.4050, L500.4100 #### [facility] [address] [place], [address] HEMOGLOBIN A1C Collected: 02/01/2018 Status: F Source: [place] 9:50 AM [facility] REPOSITORY TYPE CODE TESTS RESULT OUT OF RANGE REFERENCE UNITS LAB L501.9985 4.2-6.3 % High HGB A1C 7.5 Performed By: #### L501.9985 #### [facility] [address] [place], [address] MICROALB:CREAT Collected: 02/01/2018 Status: F Source: FLIP RATIO,RANDOM UR 9:50 AM [facility] REPOSITORY TYPE CODE TESTS RESULT OUT OF RANGE REFERENCE UNITS LAB L501.1200 NO RANGE EST. mg/dL Normal UR CREAT 258.00 LAB L502.0500 NO RANGE EST. mg/L Normal 109.0 MICROALBUMIN ,UR LAB L502.0600 <30 mg/g CRE mg/g CRE High 42.2 MALB:CREAT Performed By: #### L502.0250 #### [facility] [address] [place], [address] URINALYSIS, COMPLETE Collected: 02/01/2018 Status: F Source: FLIP 9:50 AM [facility] REPOSITORY Order Comment: How was Urine Obtained? [...] MUCUS, URINE Performed By: #### L400.0001 #### [facility] [address] [facility] [place], [address] HEPATITIS C ANTIBODIES Collected: 02/01/2018 Status: F Source: [place] 9:50 AM [facility] REPOSITORY TYPE CODE TESTS RESULT OUT OF RANGE REFERENCE UNITS LAB L3100.0650 0.0-0.9 s/co ratio Normal HEP C AB <0.1 Result Comment: Negative: < 0.8 Indeterminate: 0.8 - 0.9 Positive: > 0.9 The CDC recommends that a positive HCV antibody result be followed up with a HCV Nucleic Acid Amplification test (265552). Performed at: [facility] [id number] Boat Laborer: Marvin Ordaz PhD, Phone: [phone] Performed By: #### L3100.0625 #### [facility] (refer to report for specific site) refer to report for address and phone number PROTHROMBIN TIME W/INR Collected: 12/25/2017 Status: F Source: [place] 1:55 PM [facility] REPOSITORY Order Comment: Send Results To: PCP Reason for Laboratory Test History of factor V Leiden, on Coumadin TYPE CODE TESTS RESULT OUT OF RANGE REFERENCE UNITS LAB L300.4150 11.7-14.9 SECONDS High PROTIME 22.8 LAB L300.4200 Normal INR 2.0 Performed By: #### L300.3900 #### [facility] [address] [facility] [place], [address] DISCHARGE SUMMARY Observed: 12/23/2017 Status: F Source: [place] 1:13 PM [facility] REPOSITORY [facility] Medical Records Department [address] [place] [address] Discharge Summary 12/23/17 1308 MR#: [id number] Acct: [id number] Name: HEAVEN MONROE Jama Rep #: [id number] : 1955 62 From: Zeina Paige MD PCP: Elissa Matthews DO Status: DIS IN Y Location: SD3 DH110-1 Discharge Date and Diagnosis Date of Admission: [...] tomorrow night and do blood work of and INR on Sunday morning, plan to follow-up with PCP in [...] PO TID #40 tab Primary Care Physician: Elissa Matthews DO [Primary Care Provider] - Please follow up with your Primary Care Physician in: 1 week. Patient Instructions: Clostridium difficile Infection Disposition: Home Minutes spent on discharge:: 32 Patient Condition:: Stable Medical Necessity - Tobacco Use Smoking Status: Never smoker Meaningful Use Info Meaningful Use Diagnoses (Choose all that apply): None applicable Code Visit Inpatient E AND M: 24748 Disch Hosp 12/23/17 1313 <Electronically signed by Zeina Paige MD> Date Zeina Paige MD Cosigner Signature (if applicable): Date CC: Zeina Paige; Elissa Matthews DO Signed DISCHARGE INSTRUCTION Observed: 12/23/2017 Status: F Source: [place] 9:43 AM [facility] REPOSITORY [facility] Medical Records Department [address] [place] [address] Instructions for Home/Discharge Instructions 12/23/17 0941 MR#: [id number] Acct: [id number] Name: HEAVEN MONROE Rep #: [id number] : 1955 62 From: Zeina Paige MD PCP: Elissa Matthews DO Status: ADM IN - Discharge [...] PO TID #40 tab Primary Care Physician: Elissa Matthews DO [Primary Care Provider] - Please follow up with your Primary Care Physician in: 1 week. 12/23/17 0943 <Electronically signed by Zeina Paige MD> Date Zeina Paige MD CC: Elissa Matthews DO PROTHROMBIN TIME W/INR Collected: 12/23/2017 Status: F Source: [place] 6:55 AM [facility] REPOSITORY TYPE CODE TESTS RESULT OUT OF RANGE REFERENCE UNITS LAB L300.4150 11.7-14.9 SECONDS High PROTIME 32.9 LAB L300.4200 Normal INR 3.2 Performed By: #### L300.3900 #### [facility] [address] [place], [place], [address] CBC W/DIFF, AUTOMATED Collected: 12/23/2017 Status: F Source: [place] 6:55 AM [facility] REPOSITORY TYPE CODE TESTS RESULT OUT OF [...] Lymph 1.78 Performed By: #### L100.0100 #### [facility] [address] [facility] [address] [place], [place], [address] BASIC METABOLIC Collected: 12/23/2017 Status: F Source: [place] PROFILE (BMP) 6:55 AM [facility] REPOSITORY TYPE CODE TESTS RESULT OUT OF [...] Normal 5 Performed By: #### L500.2500 #### [facility] [address] [facility] [place], [place], [address] BEDSIDE GLUCOSE Collected: 12/23/2017 Status: F Source: [place] 6:36 AM [facility] REPOSITORY TYPE CODE TESTS RESULT OUT OF REFERENCE UNITS RANGE LAB L501.080 70-110 mg/dL High BEDSIDE GLU 127 Result Comment: MANAGEMENT OF PATIENT CARE PER NURSING PROTOCOL Performed By: #### L501.080 #### [facility] Point of Care [address] [place], [place] [address] BEDSIDE GLUCOSE Collected: 12/22/2017 Status: F Source: [place] 8:58 PM [facility] REPOSITORY TYPE CODE TESTS RESULT OUT OF REFERENCE UNITS RANGE LAB L501.080 70-110 mg/dL High BEDSIDE GLU 154 Result Comment: MANAGEMENT OF PATIENT CARE PER NURSING PROTOCOL Performed By: #### L501.080 #### [facility] Point of Care [address] [place], [place] [address] BEDSIDE GLUCOSE Collected: 12/22/2017 Status: F Source: [place] 4:00 PM [facility] REPOSITORY TYPE CODE TESTS RESULT OUT OF REFERENCE UNITS RANGE LAB L501.080 70-110 mg/dL High BEDSIDE GLU 148 Result Comment: MANAGEMENT OF PATIENT CARE PER NURSING PROTOCOL Performed By: #### L501.080 #### [facility] Point of Care [address] [place], [place] [address] BEDSIDE GLUCOSE Collected: 12/22/2017 Status: F Source: [place] 11:16 AM [facility] REPOSITORY TYPE CODE TESTS RESULT OUT OF REFERENCE UNITS RANGE LAB L501.080 70-110 mg/dL High BEDSIDE GLU 177 Result Comment: MANAGEMENT OF PATIENT CARE PER NURSING PROTOCOL Performed By: #### L501.080 #### [facility] Point of Care [address] [place] [address] CBC W/DIFF, AUTOMATED Collected: 12/22/2017 Status: F Source: [place] 6:30 AM [facility] REPOSITORY TYPE CODE TESTS RESULT OUT OF [...] Lymph 1.58 Performed By: #### L100.0100 #### [facility] [address] [place], [address] BASIC METABOLIC Collected: 12/22/2017 Status: F Source: [place] PROFILE ([facility]) 6:30 AM [facility] REPOSITORY TYPE CODE TESTS RESULT OUT OF [...] GAP 8 Performed By: #### L500.2500 #### [facility] [address] [place], [address] LACTIC ACID Collected: 12/22/2017 Status: F Source: [place] 6:30 AM [facility] REPOSITORY TYPE CODE TESTS RESULT OUT OF RANGE REFERENCE UNITS LAB L503.6005 0.4-2.0 mmol/L Normal LACTIC ACID 1.4 Performed By: #### L503.6005 #### [facility] [address] [facility] [place], [address] MAGNESIUM Collected: 12/22/2017 Status: F Source: [place] 6:30 AM [facility] REPOSITORY Order Comment: C57 ADD TYPE CODE TESTS RESULT OUT OF RANGE REFERENCE UNITS LAB L501.5200 1.6-2.6 mg/dL Low MG 1.5 Result Comment: Please note revised Magnesium reference range effective 2017. Performed By: #### L501.5200 #### [facility] [address] [place], [address] HISTORY AND PHYSICAL Observed: 12/22/2017 Status: F Source: [place] EXAM 3:05 AM [facility] REPOSITORY [facility] Medical Records Department [address] [place] [address] History and Physical 12/21/17 2244 MR#: [id number] Acct: [id number] Name: HEAVEN MONROE Rep #: [id number] : 1955 62 From: Benjy Olguin MD PCP: Elissa Matthews DO Status: ADM IN Y Location: MS3 UP153-8 Problem List (1) Diarrhea Status: Acute (2) [...] MD Cosigner Signature: Date (if applicable) CC: Elissa Matthews DO; Benjy Olguin MD Signed LACTIC ACID Collected: 12/22/2017 Status: F Source: [place] 1:38 AM [facility] REPOSITORY Order Comment: Yes/No query for Sepsis Lactate Rule Y TYPE CODE TESTS RESULT OUT OF RANGE REFERENCE UNITS LAB L503.6005 0.4-2.0 mmol/L Normal LACTIC ACID 2.0 Result Comment: Critical Result(s) Called at: 01:13:46 12/22/2017 by: Ene Deshpande Performed By: #### L503.6005 #### [facility] [address] [place], [place] [address]. [place], [place], [address] Observed: 12/22/2017 Status: F Source: [place] CULTURE, BLOOD (WB) 1:38 AM [facility] REPOSITORY BC No growth in 5 days. Performed By: #### M200.1000 #### [facility] [address] [place], [address] Observed: 12/22/2017 Status: F Source: [place] CULTURE, BLOOD (WB) 1:32 AM [facility] REPOSITORY BC No growth in 5 days. Performed By: #### M200.1000 #### [facility] [address] [place], [address] BEDSIDE GLUCOSE Collected: 12/22/2017 Status: F Source: [place] 12:34 AM [facility] REPOSITORY TYPE CODE TESTS RESULT OUT OF REFERENCE UNITS RANGE LAB L501.080 70-110 mg/dL High BEDSIDE GLU 144 Result Comment: MANAGEMENT OF PATIENT CARE PER NURSING PROTOCOL Performed By: #### L501.080 #### [facility] Point of Care [address] [place] [address] EMERGENCY DEPARTMENT Observed: 12/21/2017 Status: F Source: FLIP SUMMARY 10:45 PM [facility] REPOSITORY [facility] Medical Records Department [address] [place] [address] Emergency Department Summary 12/21/17 1750 MR#: [id number] Acct: [id number] Name: HEAVEN MONROE Rep #: [id number] : 1955 62 From: Kathleen Newman MD PCP: Elissa Matthews DO Status: ADM IN - ER [...] leukocytosis, diarrhea This note was generated with SitScape dictation software. It may contain incorrect words, spelling, and punctuation that were not noted in review of the chart prior to signing ED Disposition - Plan for ED Patient: Chief Complaint: Abd Pain Referrals: Elissa Matthews DO [Primary Care Provider] - What to do if you have Problems For any increased pain, shortness of breath, bleeding, nausea or vomiting, chest pain, or any unexpected problems, contact your Primary Care Provider. Call [facility] ([phone]) or report to the closest Emergency Room. Call 911 if necessary. 12/21/17 5473 <Electronically signed by Kathleen Newman MD> Date Kathleen Newman MD Cosigner Signature (If Indicated): Date CC: Elissa Matthews DO CHEST 1 VIEW Observed: 12/21/2017 Status: F Source: [place] (PORTABLE) 8:43 PM [facility] REPOSITORY [facility] Imaging Services [address] [place] [address] Chest 1 View (Portable) MR#: [id number] Acct: [id number] Name: FERHEAVEN Jama Rep #: [id number] : 1955 F 62 From: Eleazar Venegas MD PCP: Elissa Matthews DO Status: REG ER Study: Chest 1 View (Portable) Date of Exam: 12/21/17 Exam# [id number] Ordering Dr: Kathleen Newman MD STUDY: X-RAY [...] Service support , CC: Kathleen Newman MD; Elissa Matthews DO Assignment Manager: Signed CBC W/DIFF, AUTOMATED Collected: 12/21/2017 Status: F Source: [place] 6:00 PM [facility] REPOSITORY TYPE CODE TESTS RESULT OUT OF [...] SHIFT NOTED Performed By: #### L100.0100 #### [facility] [address] [facility]. [place], [place], [address] PROTHROMBIN TIME W/INR Collected: 12/21/2017 Status: F Source: [place] 6:00 PM [facility] REPOSITORY TYPE CODE TESTS RESULT OUT OF RANGE REFERENCE UNITS LAB L300.4150 11.7-14.9 SECONDS High PROTIME 24.0 LAB L300.4200 Normal INR 2.1 Performed By: #### L300.3900 #### [facility] [address] [place], [place], [address] BASIC METABOLIC Collected: 12/21/2017 Status: F Source: [place] PROFILE (BMP) 6:00 PM [facility] REPOSITORY TYPE CODE TESTS RESULT OUT OF [...] Performed By: #### L500.2500, L500.3400, L501.2450 #### [facility] [address] [place], [address] LIVER PROFILE Collected: 12/21/2017 Status: F Source: [place] 6:00 [facility] REPOSITORY TYPE CODE TESTS RESULT OUT OF [...] Performed By: #### L500.2500, L500.3400, L501.2450 #### [facility] [address] [facility] [place], [address] LIPASE Collected: 12/21/2017 Status: F Source: [place] 6:00 [facility] REPOSITORY TYPE CODE TESTS RESULT OUT OF RANGE REFERENCE UNITS LAB L501.2450 73-393 U/L Normal LIPASE 77 Performed By: #### L500.2500, L500.3400, L501.2450 #### [facility] [address] [place], [place], [address] URINALYSIS, COMPLETE Collected: 12/21/2017 Status: F Source: [place] 6:00 PM [facility] REPOSITORY Order Comment: Order Date: 12/21/17 Has [...] CRYSTAL 1+ Performed By: #### L400.0001 #### [facility] [address] [place], [address] Observed: 12/21/2017 Status: F Source: [place] CULTURE, URINE 6:00 PM [facility] REPOSITORY Order Date: 12/21/17 Has pt arrived? Y Urine Culture ORGANISM 1: Mixed Gram Pos AND Gram Neg Org [place] Count >100,000 MIX CULTURE Mixed contaminants. Submit a new specimen if indicated. Performed By: #### M100.0650 #### [facility] [address] [place], [address] ABDOMEN/PELVIS WITH Observed: 12/21/2017 Status: F Source: [place] CONTRAST 5:49 PM [facility] REPOSITORY [facility] Imaging Services [address] [place] [address] Abdomen/Pelvis WITH Contrast MR#: [id number] Acct: [id number] Name: HEAVEN MONROE Rep #: [id number] : 1955 F 62 From: Eleazar Venegas MD PCP: Elissa Matthews DO Status: REG ER Study: Abdomen/Pelvis WITH Contrast Date of Exam: 12/21/17 Exam# [id number] Ordering Dr: Kathleen Newman MD STUDY: CT [...] Service support , CC: Kathleen Newman MD; Elissa Matthews DO Assignment Manager: Signed Observed: 12/21/2017 Status: F Source: FLIP CDIFF (MOLECULAR) 9:25 AM [facility] REPOSITORY Order Date: 12/21/17 Has pt arrived? [...] difficile DNA Performed By: #### M100.6796 #### [facility] [place], [address] Observed: 12/21/2017 Status: F Source: [place] ENTERIC PATHOGEN 9:25 AM [facility] PANEL STOOL REPOSITORY Order Date: 12/21/17 Has [...] Not Detected Performed By: #### M100.637 #### [facility] [address] [place], [address] EMERGENCY DEPARTMENT Observed: 12/13/2017 Status: F Source: [place] SUMMARY 5:05 PM [facility] REPOSITORY [facility] Medical Records Department [address] [place] [address] Emergency Department Summary 12/13/17 0926 MR#: [id number] Acct: [id number] Name: HEAVEN MONROE Rep #: [id number] : 1955 62 From: Gerardo Aguilar MD PCP: Elissa Matthews DO Status: DEP ER - ER [...] Coumadin coagulopathy. This note was generated with SitScape dictation software. It may contain incorrect words, [...] 20 mg PO TIDAC #20 capsule Referrals: Elissa Matthews DO [Primary Care Provider] - 1-2 Days if not improving What to do if you have Problems For any increased pain, shortness of breath, bleeding, nausea or vomiting, chest pain, or any unexpected problems, contact your Primary Care Provider. Call [facility] ([phone]) or report to the closest Emergency Room. Call 911 if necessary. 12/13/17 1705 <Electronically signed by Gerardo Aguilar MD> Date Gerardo Aguilar MD Cosigner Signature (If Indicated): Date CC: Elissa Matthews DO EMERGENCY DEPARTMENT Observed: 12/13/2017 Status: F Source: [place] SUMMARY 6:58 AM [facility] REPOSITORY [facility] Medical Records Department [address] [place] [address] Emergency Department Summary 12/13/17 0654 MR#: [id number] Acct: [id number] Name: HEAVEN MONROE Rep #: [id number] : 1955 62 From: Sage Carrero PCP: Elissa Matthews DO Status: PRE ER - ER [...] vomiting, diarrhea This note was generated with SitScape dictation software. It may contain incorrect words, spelling, and punctuation that were not noted in review of the chart prior to signing ED Disposition - Plan for ED Patient: Chief Complaint: Nausea/Vomiting/Diarrhea Referrals: Elissa Matthews, [Primary Care Provider] - What to do if you have Problems For any increased pain, shortness of breath, bleeding, nausea or vomiting, chest pain, or any unexpected problems, contact your Primary Care Provider. Call [facility] ([phone]) or report to the closest Emergency Room. Call 911 if necessary. 12/13/17 0658 <Electronically signed by Sage Carrero> Date Sage Carrero Cosigner Signature (If Indicated): Date CC: Elissa Matthews DO URINALYSIS, COMPLETE Collected: 12/13/2017 Status: F Source: [place] 6:50 AM [facility] REPOSITORY Order Comment: Order Date: 12/13/17 How [...] URINE SEEN Performed By: #### L400.0001 #### [facility] [address] [place], [place], [address] Observed: 12/13/2017 Status: F Source: [place] CULTURE, URINE 6:50 AM [facility] REPOSITORY Order Date: 12/13/17 Urine Culture ORGANISM 1: Presumptive E. coli [place] Count 50,000-80,000 Presumptive E. coli: REACTION Amoxacillin/Clavulanic [...] >=320 R (NF) indicates non-formulary drug at [facility]. Approval by Infectious Disease Specialist required before non-formulary drugs may be ordered and/or dispensed. Performed By: #### M100.0650 #### [facility] [address] [place], [place], [address] CBC W/DIFF, AUTOMATED Collected: 12/13/2017 Status: F Source: [place] 6:25 AM [facility] REPOSITORY TYPE CODE TESTS RESULT OUT OF [...] Lymph 1.63 Performed By: #### L100.0100 #### [facility] [address] [place], [place], [address] COMPREHENSIVE METABOLIC Collected: 12/13/2017 Status: F Source: [place] 6:25 AM [facility] REPOSITORY TYPE CODE TESTS RESULT OUT OF [...] 7 Performed By: #### L500.4050, L501.2450 #### [facility] [address] [place], [address] LIPASE Collected: 12/13/2017 Status: F Source: [place] 6:25 AM [facility] REPOSITORY TYPE CODE TESTS RESULT OUT OF REFERENCE UNITS RANGE LAB L501.2450 73-393 U/L Low LIPASE 53 Performed By: #### L500.4050, L501.2450 #### [facility] [address] [place], [address] PROTHROMBIN TIME W/INR Collected: 12/13/2017 Status: F Source: [place] 6:25 AM [facility] REPOSITORY TYPE CODE TESTS RESULT OUT OF RANGE REFERENCE UNITS LAB L300.4150 11.7-14.9 SECONDS High PROTIME 26.2 LAB L300.4200 Normal INR 2.4 Performed By: #### L300.3900 #### [facility] [address] [place], [address] HEMOGLOBIN A1C Collected: 11/16/2017 Status: F Source: [place] 1:50 PM [facility] REPOSITORY TYPE CODE TESTS RESULT OUT OF RANGE REFERENCE UNITS LAB L501.9985 4.2-6.3 % High HGB A1C 7.8 Performed By: #### L501.9985 #### [facility] [address] [facility] [place], [address] COMPREHENSIVE METABOLIC Collected: 11/16/2017 Status: F [facility] PM [facility] REPOSITORY TYPE CODE TESTS RESULT OUT OF [...] By: #### L500.4050, L500.4100, L501.5200, L501.9520 #### [facility] [address] [place], [place], [address] LIPID PROFILE Collected: 11/16/2017 Status: F Source: [place] 1:50 PM [facility] REPOSITORY TYPE CODE TESTS RESULT OUT OF [...] By: #### L500.4050, L500.4100, L501.5200, L501.9520 #### [facility] [address] [place], [place], [address] MAGNESIUM Collected: 11/16/2017 Status: F Source: [place] 1:50 PM [facility] REPOSITORY TYPE CODE TESTS RESULT OUT OF RANGE REFERENCE UNITS LAB L501.5200 1.6-2.6 mg/dL Normal MG 1.7 Result Comment: Please note revised Magnesium reference range effective 2017. Performed By: #### L500.4050, L500.4100, L501.5200, L501.9520 #### [facility] [address] [place], [place], [address] THYROID STIM HORMONE Collected: 11/16/2017 Status: F Source: [place] (TSH) 1:50 PM [facility] REPOSITORY TYPE CODE TESTS RESULT OUT OF RANGE REFERENCE UNITS LAB L501.9520 0.358-3.74 uIU/mL Normal TSH 2.22 Performed By: #### L500.4050, L500.4100, L501.5200, L501.9520 #### [facility] [address] [place], [address] CBC W/DIFF, AUTOMATED Collected: 11/16/2017 Status: F Source: [place] 1:50 PM [facility] REPOSITORY TYPE CODE TESTS RESULT OUT OF [...] Lymph 2.57 Performed By: #### L100.0100 #### [facility] [address] [place], [address] MICROALB:CREAT Collected: 11/16/2017 Status: F Source: [facility] 1:50 PM [facility] REPOSITORY TYPE CODE TESTS RESULT OUT OF RANGE REFERENCE UNITS LAB L501.1200 NO RANGE EST. mg/dL Normal UR CREAT 130.00 LAB L502.0500 NO RANGE EST. mg/L Normal 68.6 MICROALBUMIN ,UR LAB L502.0600 <30 mg/g CRE mg/g CRE High 52.8 MALB:CREAT Performed By: #### L502.0250 #### [facility] [address] [place], [address] SCREENING MAMM (CAD), Observed: 10/24/2017 Status: F Source: FLIP BILAT 4:01 PM [facility] REPOSITORY [facility] Imaging Services [address] [place] [address] SCREENING MAMM (CAD), BILAT MR#: [id number] Acct: [id number] Name: HEAVEN MONROE Rep #: [id number] : 1955 F 62 From: Darius Marin MD PCP: Elissa Matthews DO Status: REG CLSteve Study: SCREENING MAMM (CAD), BILAT Date of Exam: 10/24/17 Exam# [id number] Ordering Dr: Le Abreu [employer]ARM MANA[employer] SUPERVISOR-C MAMMOGRAPHY - BILATERAL SCREENING REASON FOR EXAM: [...] delay biopsy of a clinically suspicious abnormality. [id number] Electronically Signed: Darius Marin MD at 9:39 EST Tel [phone], Service support , CC: DEBORA Abreu; Elissa Matthews DO Assignment Manager: Signed ALLERGIES ALLERGIES DATE TYPE / CODE NAME / CODE REACTION SEVERITY SOURCE 10/09/2018 Drug propoxyphene Unknown Unknown [place] Allergy/416 napsylate/[id number] Community [id number]([facility]) Repository 10/09/2018 Drug KENYA cough Unknown [place] Allergy/416 Inhibitors/[id number] [facility] [id number]([address]) Repository 10/09/2018 Drug clindamycin/[id number] Hives Unknown [place] Allergy/416 794(RXNORM) [facility] 875712([facility] ED CT) Repository 10/09/2018 Drug liraglutide/[id number] lump in throat Unknown [place] Allergy/416 773(RXNORM) [facility] 776050([facility] ED CT) Repository ENCOUNTERS ENCOUNTERS ADMIT/DISCHARGE ACCOUNT ADMITTING ENCOUNTER LOCATION SOURCE NUMBER CLASS 10/09/2018/ [id number] Emergency [place] Flip 9 5 [facility] ing:ED Repository 10/09/2018 [id number] Ambulatory Flip [place] 7 [facility] ing:LAB.FUTUR Repository E 08/19/2018/ [id number] Emergency [place] Fl[place] 8 9 [facility] ing:ED Repository 08/19/2018 [id number] Ambulatory [place] Fl[place] 7 [facility] ing:LAB.FUTUR Repository E 05/31/2018 [id number] Ambulatory [place] Flip 0 [facility] ing:NS Repository 05/03/2018 [id number] Ambulatory [place] Flip 4 [facility] ing:BFHLAB Repository 04/25/2018/ [id number] Ambulatory Flip [place] 8 9 [facility] Repository 04/09/2018/ [id number] Ambulatory Flip [place] 8 3 [facility]PT Repository 04/05/2018/ [id number] Ambulatory Flip [place] 8 8 [facility]NS Repository 04/03/2018 [id number] Ambulatory [place] Flip 9 [facility] ing[facility]SL Repository 02/14/2018 [id number] Ambulatory Flip [place] 8 [facility] ing:MTRAD Repository 02/01/2018 [id number] Ambulatory [place] Flip 9 [facility] ing:BFHLAB Repository 12/25/2017 [id number] Ambulatory [place] 1 [facility] Hospital ing:BFHLAB Repository 12/25/2017 [id number] Ambulatory Flip [place] 0 [facility] Hospital ing:LAB.FUTUR Repository E 12/21/2017/ [id number] Benjy Olguin Inpatient [place] Flip 8 0 Encounter [facility] Hospital ing:AS0Nkxf: Repository CH269Icy: 1 12/21/2017 [id number] Benjy Olguin Ambulatory BMSBuilding:B [place] 7 [facility] Repository 12/21/2017 [id number] Clau Benjy Ambulatory BMSBuilding:B [place] 9 [facility] Repository 12/21/2017 [id number] Clau Benjy Ambulatory BMSBuilding:B [place] 3 [facility] Repository 12/13/2017/ [id number] Emergency [place] 8 0 [facility]:ED Repository 11/16/2017 [id number] Ambulatory [place] 1 [facility] ing:LAB.FUTUR Repository E 10/24/2017 [id number] Ambulatory [place]ip Fl[place] 2 [facility] Hospital ing:BI Repository 09/07/2017/ [id number] Ambulatory BMSBuilding:B [place] 7 3 [facility] Repository PAYERS PAYERS ENCOUNTER GUARANTOR PAYER SUBSCRIBER SOURCE 10/09/2018 HEAVEN L Primary Insurance:MMO HEAVEN L [place] [id number] MEDICAREPolicy SPECHTDOB: [facility] PRIYANKA Number: [id number] [id number] Repository 76482Epr: (330) Date:9494-00-93DC [phone] (HP) [address], [place] [address]MJ: 10/09/2018 Secondary NOT GIVENUNK [place] Insurance:SELF PAY [facility] Number: Effective Repository Date:2018-10-09 10/09/2018 HEAVEN L Primary Insurance:MMO HEAVEN L [place] [id number] MEDICAREPolicy SPECHTDOB: [facility] PRIYANKA Number: [id number], [place] [id number] Repository 85332Gqa: (330) Date:5469-09-05HQ [phone] (HP) [address], [place] [address]TZ: 10/09/2018 Secondary NOT GIVENUNK [place] Insurance:SELF PAY [facility] Number: Effective Repository Date:2018-10-09 08/19/2018 HEAVEN L Primary Insurance:MMO HEAVEN L [place] [id number] MEDICAREPolicy SPECHTDOB: [facility] PRIYANKA Number: [id number], [place] [id number] Repository 54513Zqv: (330) Date:7083-33-19EF [phone] (HP) [address] [place] [address]SX: 08/19/2018 Secondary NOT GIVENUNK [place] Insurance:SELF PAY [facility] Number: Effective Repository Date:2018-08-19 08/19/2018 HEAVEN L Primary Insurance:MMO HEAVEN L [place] [id number] MEDICAREPolicy SPECHTDOB: [facility] PRIYANKA Number: [id number], [place] [id number] Repository 49823Ljc: (330) Date:8970-83-04SE [phone] (HP) [address] [place] [phone]: 08/19/2018 Secondary NOT GIVENUNK [place] Insurance:SELF PAY [facility] Number: Effective Repository Date:2018-05-23 05/31/2018 HEAVEN L Primary Insurance:MMO HEAVEN L [place] [id number] MEDICAREPolicy SPECHTDOB: [facility] PRIYANKA Number: [id number], [place] [id number] Repository 86616Tpp: (330) Date:9712-64-46JT [phone] () [address] [place] [phone]: 05/31/2018 Secondary NOT GIVENUNK [place] Insurance:SELF PAY [facility] Number: Effective Repository Date:2018-05-25 05/03/2018 HEAVEN L Primary Insurance:MMO HEAVEN L [place] [id number] MEDICAREPolicy SPECHTDOB: [facility] PRIYANKA Number: [id number], [place] [id number] Repository 92794Llo: (330) Date:2176-67-01AB [phone] () [address] [place] [address]CZ: 05/03/2018 Secondary NOT GIVENUNK [place] Insurance:SELF PAY [facility] Number: Effective Repository Date:2018-05-03 04/25/2018 HEAVEN L Primary Insurance:MMO HEAVEN L [place] [id number] MEDICAREPolicy SPECHTDOB: [facility] PRIYANKA Number: [id number], [place] [id number] Repository 26167Gaa: (330) Date:8733-26-14JS [phone] () [address], [place] [address]AK: 04/25/2018 Secondary NOT GIVENUNK [place] Insurance:SELF PAY [facility] Number: Effective Repository Date:2018-04-24 04/09/2018 HEAVEN L Primary Insurance:MMO HEAVEN L [place] [id number] MEDICAREPolicy SPECHTDOB: [facility] PRIYANKA Number: [id number], [place] [id number] Repository 82820Ext: (330) Date:8331-84-05FE [phone] (HP) [address] [place] [address]XL: 04/09/2018 Secondary NOT GIVENUNK [place] Insurance:SELF PAY [facility] Number: Effective Repository Date:2018-04-02 04/05/2018 HEAVEN L Primary Insurance:MMO HEAVEN L [place] [id number] MEDICAREPolicy SPECHTDOB: Community PRIYANKA Number: [id number], [place] [id number] Repository 39088Pul: (330) Date:6153-73-36EB [phone] (HP) [address] [place] [phone]: 04/05/2018 Secondary NOT GIVENUNK [place] Insurance:SELF PAY [facility] Number: Effective Repository Date:2018-03-14 04/03/2018 HEAVEN L Primary Insurance:MMO HEAVEN L [place] [id number] MEDICAREPolicy SPECHTDOB: Community PRIYANKA Number: [id number], [place] [id number] Repository 99406Mrn: (330) Date:5601-13-65ZS [phone] () [address] [place] [phone]: 04/03/2018 Secondary NOT GIVENUNK [place] Insurance:SELF PAY [facility] Number: Effective Repository Date:2018-03-26 02/14/2018 [place] Primary Insurance:MMO HEAVEN L [place] [id number] MEDICAREPolicy SPECHTDOB: Community PRIYANKA Number: [id number], [place] [id number] Repository 88565Zyr: (330) Date:0042-77-65PX [phone] () [address] [place] [phone]: 02/14/2018 Secondary NOT GIVENUNK [place] Insurance:SELF PAY [facility] Number: Effective Repository Date:2018-02-14 02/01/2018 [place] Primary Insurance:MMO HEAVEN L [place] [id number] MEDICAREPolicy SPECHTDOB: [facility] PRIYANAK Number: [id number], [place] [id number] Repository 44020Vco: (330) Date:0385-92-38OE [phone] (HP) [address] [place] [address]NZ: 02/01/2018 Secondary NOT GIVENUNK [place] Insurance:SELF PAY [facility] Number: Effective Repository Date:2018-02-01 12/25/2017 [place] Primary Insurance:MMO HEAVEN L [place] [id number] MEDICAREPolicy SPECHTDOB: [facility] PRIYANKA Number: [id number], [place] [id number] Repository 89725Sqz: (330) Date:8690-20-43FV [phone] (HP) [address] [place] [address]YL: 12/25/2017 Secondary NOT GIVENUNK [place] Insurance:SELF PAY [facility] Number: Effective Repository Date:2017-12-25 12/25/2017 [place] Primary Insurance:MMO HEAVEN L [place] [id number] [facility]IC[facility]Policy [facility] Number: [id number], [place] [id number] Repository 95225Dqp: (330) Date:6166-90-42LN [phone] (HP) [address] [place] [phone]: 12/25/2017 Secondary NOT GIVENUNK [place] Insurance:SELF PAY [facility] Number: Effective Repository Date:2017-12-19 12/21/2017 [place] Primary Insurance:MMO HEAVEN L [place] [id number] MEDICAREPolicy SPECHTDOB: [facility] Number: [id number], [place] [id number] Repository 74259Ybc: (330) Date:9632-04-72OW [phone] (HP) [address] [place] [address]EY: 12/21/2017 Secondary NOT GIVENUNK [place] Insurance:SELF PAY [facility] Number: Effective Repository Date:2017-12-21 12/21/2017 [place] Primary Insurance:MMO HEAVEN L [place] [id number] MEDICAREPolicy SPECHTDOB: Community PRIYANKA Number: [id number], [place] [id number] Repository 11783Ftz: (330) Date:4383-80-22BX [phone] () [address], [place] [address]WE: 12/21/2017 Secondary NOT GIVENUNK [place] Insurance:SELF PAY [facility] Number: Effective Repository Date:2017-12-21 12/21/2017 [place] Primary Insurance:MMO HEAEVN L [place] [id number] MEDICAREPolicy SPECHTDOB: [facility] PRIYANKA Number: [id number], [place] [id number] Repository 30334Ptp: (330) Date:8338-39-53OE [phone] () [address], [place] [address]WU: 12/21/2017 Secondary NOT GIVENUNK [place] Insurance:SELF PAY [facility] Number: Effective Repository Date:2017-12-21 12/21/2017 [place] Primary Insurance:MMO HEAVEN L [place] [id number] MEDICAREPolicy SPECHTDOB: [facility] PRIYANKA Number: [id number], [place] [id number] Repository 94002Pvp: (330) Date:4939-54-50WK [phone] () [address] [address]RF: 12/21/2017 Secondary NOT GIVENUNK [place] Insurance:SELF PAY [facility] Number: Effective Repository Date:2017-12-21 12/13/2017 [place] Primary Insurance:MMO HEAVEN L [place] [id number] MEDICAREPolicy SPECHTDOB: [facility] Priyanka Number: [id number], [place] [id number] Repository 91164Sps: (330) Date:3525-99-86UO [phone] (HP) [address], [place] [address]DJ: 12/13/2017 Secondary NOT GIVENUNK [place] Insurance:SELF PAY [facility] Effective Repository Date:2017-12-13 11/16/2017 [place] Primary Insurance:MMO HEAVEN L [place] [id number] MEDICAREPolicy SPECHTDOB: [facility] [place] Number: [id number], [place] [id number] Repository 95123Lmc: (330) Date:2081-29-11IF [address] (HP) [address] [address]SE: 11/16/2017 Secondary NOT GIVENUNK [place] Insurance:SELF PAY [facility] Number: Effective Repository Date:2017-09-25 10/24/2017 [place] Primary Insurance:MMO HEAVEN L [place] [id number] MEDICAREPolicy SPECHTDOB: Community Priyanka Number: [id number], [place] [id number] Repository 47069Opd: (330) Date:5093-11-57ZM [phone] (HP) [address] [place] [phone]: 10/24/2017 Secondary NOT GIVENUNK [place] Insurance:SELF PAY [facility] Number: Effective Repository Date:2017-09-20 09/07/2017 [place] Primary Insurance:MMO HEAVEN L [place] [id number] MEDICAREPolicy SPECHTDOB: [facility] [place] Number: [id number], [place] [id number] Repository 22481Rii: (330) Date:3665-19-52GP [phone] (HP) [address] [place] [phone]: 09/07/2017 Secondary NOT GIVENUNK [place] Insurance:SELF PAY [facility] Number: Effective Repository Date:2017-08-26
== END 2018-10-09 14:24 | disposition home or self-care (01) ==
PROVIDERS: Emergency Provider Emergency Medicine; Family Provider Family Medicine; PCP Family Medicine
DX: N39.0 Urinary tract infection, site not specified (principal); R60.0 Localized edema; I11.0 Hypertensive heart disease with heart failure; I50.9 Heart failure, unspecified; E11.9 Type 2 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 without complications; E78.00 Pure hypercholesterolemia, unspecified; D68.2 Hereditary deficiency of other clotting factors; Z86.718 Personal history of other venous thrombosis and embolism; Z86.711 Personal history of pulmonary embolism; Z79.01 Long term (current) use of anticoagulants; Z79.84 Long term (current) use of oral hypoglycemic drugs; Z79.899 Other long term (current) drug therapy
CPT/HCPCS: 81001; 93971; 99283

== ENCOUNTER → 2018-10-29 13:46 | Outpatient (CLI) | payer MEDICARE, SELFPAY ==
[2018-10-09 11:57] VITALS: BMI 50.3
--- NOTE | 2018-10-29 13:49 | US_ITS ---
HISTORY: CHRONIC UTI'S TECHNIQUE: Booth scale and color doppler sagittal and transverse images were obtained of the kidneys. COMPARISON: 12/21/17 CT abdomen and pelvis. FINDINGS: # of images incl. paperwork: 64 RIGHT KIDNEY: 10.4 x 6.3 x 6.2 cm. There is no hydronephrosis. No shadowing calculus, focal lesion or perinephric collection is demonstrated. LEFT KIDNEY: 11.6 x 5.5 x 5.9 cm. There is no hydronephrosis. No shadowing calculus, focal lesion or perinephric collection is demonstrated. URINARY BLADDER: Distended volume 310 cc. Postvoid volume 15 cc. No wall thickening or filling defects. Bilateral ureteral jets are visualized. US/Kidney and Bladder IMPRESSION: Negative renal ultrasound. at 9253 Reported and signed by: Karan Horan MD Electronically Signed: Karan Horan, at 22:42 EST Tel , Service support ,
== END ==
PROVIDERS: Family Provider Family Medicine; PCP Family Medicine; Referring Provider Urology; Visit Provider Urology
DX: N39.0 Urinary tract infection, site not specified (principal)
CPT/HCPCS: 76770

== ENCOUNTER → 2018-11-07 09:40 | Outpatient (CLI) | payer MEDICARE, SELFPAY ==
[2018-10-09 11:57] VITALS: BMI 50.3
[2018-11-07 12:18] LABS: Absolute Neutrophil Count 4.6 X10^3/uL (2.0-7.7); Basophil# 0.01 X10^3/uL; Basophil% 0.1 % (0-1); Eosinophil# 0.13 X10^3/uL; Eosinophils% 1.7 % (0-5); Hematocrit 38.7 % (37-47); Hemoglobin 11.9 g/dl (12.0-15.0); Lymphocyte % 33.5 % (19-41); Mean Corp Hgb Conc 30.7 g/gl (32-36); Mean Corpuscular Hgb 25.2 pg (27.0-32.0); Mean Platelet Vol. 9.6 fl (6.2-12.0); Monocyte# 0.44 X10^3/uL; Monocyte% 5.7 % (0-10); Neutrophil # 4.55 X10^3/uL (2.7-7.7); Neutrophil % 58.7 % (47-70); POSITIVE COUNT NO; POSITIVE DIFFERENTIAL NO; POSITIVE MORPHOLOGY NO; Platelet Count 405 K/mm3 (150-450); RBC Distribution Width CV 16.4 % (11.6-14.6); RBC Distribution Width SD 49.4 fl (35.1-43.9); Red Blood Count 4.72 M/mm3 (4.2-5.4); White Blood Count 7.8 K/mm3 (4.4-11.0)
[2018-11-07 12:42] LABS: Cholesterol 103 mg/dL (200); High Density Lipoprotein 60 mg/dL; Triglycerides 97 mg/dL; Very Low Density Lipoprotein 19 mg/dL (5-40)
[2018-11-07 12:43] LABS: Microalbumin,Random Urine 35.3 mg/L (NO RANGE EST.); Microalbumin:Creatinine Ratio 21.8 mg/g CRE (<30 mg/g CRE)
[2018-11-07 12:50] LABS: Hemoglobin A1c 8.5 % (4.2-6.3)
== END ==
LOC: LAB.FUTURE 09-08 17:12 → BFHLAB 03-12 11:12
PROVIDERS: Family Provider Family Medicine; PCP Family Medicine; Visit Provider Family Medicine
DX: E11.9 Type 2 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 without complications (principal); E78.5 Hyperlipidemia, unspecified; D68.2 Hereditary deficiency of other clotting factors; R80.9 Proteinuria, unspecified; I10 Essential (primary) hypertension; D64.9 Anemia, unspecified
CPT/HCPCS: 36415; 80061; 82043; 82570; 83036; 85025

== ENCOUNTER → 2019-03-19 | Outpatient (CLI) | payer MEDICARE, SELFPAY ==
--- NOTE | 2019-03-19 12:54 | BI_ITS ---
MAMMOGRAPHY - BILATERAL SCREENING 3-D TOMOSYNTHESIS REASON FOR EXAM: Female, 63 years old. Bilateral Screening 3-D tomosynthesis PERTINENT HISTORY: Persistent axillary tenderness.. TECHNIQUE: 2-D mammograms and 3-D Tomosynthesis of the breast (s) were performed. CAD was performed. COMPARISON: October 24, 2017, October 22, 2014 FINDINGS: The breast composition is almost entirely fat. Scattered benign calcifications are seen. No dense spiculated masses or suspicious microcalcifications are identified. No architectural distortion is identified. There is no skin thickening or retraction. There has been no significant change since the prior study. BI/SCREEN MAMM (CAD) W/ADELINA BILAT IMPRESSION: No mammographic signs of malignancy. Routine yearly mammograms recommended. ASSESSMENT CATEGORY: BIRADS Category 2: Benign. A letter regarding these results will be sent to the patient by the facility within 30 days. FOLLOW UP RECOMMENDATION: Yearly follow up mammogram recommended. (A) Approximately 10% of breast cancers are not detected by mammography. A normal mammogram should not delay biopsy of a clinically suspicious abnormality. Electronically Signed: Nikolas Rendon MD at 12:17 EDT , Service support ,
== END | disposition home or self-care (01) ==
PROVIDERS: Family Provider Family Medicine; PCP Family Medicine; Referring Provider Family Medicine; Visit Provider Family Medicine
DX: Z12.31 Encounter for screening mammogram for malignant neoplasm of breast (principal)
CPT/HCPCS: 77063; 77067

== ENCOUNTER → 2019-05-21 | Outpatient (CLI) | payer MEDICARE, SELFPAY ==
--- NOTE | 2019-05-21 14:03 | RAD_ITS ---
STUDY: X-RAY - ABDOMEN/PELVIS REASON FOR EXAM: Female, 63 years old. Abdominal pain and vomiting. TECHNIQUE: AP supine view. COMPARISON: 03/02/2015. FINDINGS: Normal visualized lung bases. There is an unremarkable bowel gas pattern. There is no demonstrated free abdominal air. The visualized liver, spleen and kidneys are grossly normal in size and morphology. Normal soft tissue structures. 6 lumbar type vertebral bodies due to lumbarization of S1. Pronounced at disc space height narrowing with degenerative vacuum phenomenon at L3-L4 disc space level and L4-L5 disc space level. Prominent right lateral marginal spurs at L3-L4 and L4-L5 disc space levels. Bilateral metallic hip arthroplasties. RAD/Abdomen Single View IMPRESSION: 1. No acute abnormality in the abdomen and pelvis. 2. Pronounced disc space height narrowing with degenerative vacuum phenomenon at L3-L4 and L4-L5 disc space levels. 3. No significant interval changes when compared to 03/02/2015. Electronically Signed: Amando Rogers MD at 16:17 EDT , Service support ,
== END | disposition home or self-care (01) ==
LOC: RAD 14:01
PROVIDERS: Family Provider Family Medicine; PCP Family Medicine; Referring Provider Family Medicine; Visit Provider Family Medicine
DX: R11.10 Vomiting, unspecified (principal)
CPT/HCPCS: 74018

== ENCOUNTER → 2019-06-02 10:49 | Outpatient (CLI) | payer MEDICARE, SELFPAY ==
[2019-05-28 11:15] VITALS: BMI 50.3
[2019-06-02 11:11] VITALS: PULSE 109; PULSE 112; PULSE 113; PULSE 114; PULSE 116; PULSE 118; PULSE 83; PULSE 85; O2SAT 95; O2SAT 96; O2SAT 97; O2SAT 98
--- NOTE | 2019-06-03 08:35 | PCM.PSN.6M ---
PSN 6 Minute Walk Test - 6 Minute Walk Test 6 Minute Walk Test: 6 Minute Walk Test PSN:6-Minute Walk Test Start: 06/02/19 11:11 Freq: Status: Active Protocol: RESP.6MINW Document 06/02/19 11:11 SAM (Rec: 06/02/19 11:13 SAM [id number]) 6 Minute Walk Test Date Performed 06/02/19 Time Performed 11:00 Height 5 ft 4 in Weight: 287 lb Weight in Pounds 287.[address]: Sukhdeep Matthews Assistive device used: Cane Pre-test Oxygen Delivery Method Room Air Pulse Ox (%) 98 Pulse Rate (60-100 beats/min) 83 Dyspnea Von Scale (0-10) 0 Exertion Von Scale (6-20) 6 1st minute Oxygen Delivery Method Room Air Pulse Ox (%) 96 Pulse Rate (60-100 beats/min) 109 H 2nd minute Oxygen Delivery Method Room Air Pulse Ox (%) 95 Pulse Rate (60-100 beats/min) 114 H 3rd minute Oxygen Delivery Method Room Air Pulse Ox (%) 97 Pulse Rate (60-100 beats/min) 113 H 4th minute Oxygen Delivery Method Room Air Pulse Ox (%) 95 Pulse Rate (60-100 beats/min) 112 H 5th minute Oxygen Delivery Method Room Air Pulse Ox (%) 95 Pulse Rate (60-100 beats/min) 118 H 6th minute Oxygen Delivery Method Room Air Pulse Ox (%) 96 Pulse Rate (60-100 beats/min) 116 H Dyspnea Von Scale (0-10) 4 Exertion Von Scale (6-20) 14 Number of Rests Taken 1 Post-test Oxygen Delivery Method Room Air Pulse Ox (%) 98 Pulse Rate (60-100 beats/min) 85 Full Laps Walked 10 Partial Lap, Number of Tiles Walked 35 Total Distance Walked (ft) 625 - Interpretation Interpretation: The patient ambulated 625 feet over the course of 6 minutes beginning on room air with the use of a cane. Pretesting oxygen saturation was noted to be 98% on room air. With ambulation, the leo oxygen saturation was 95%. Although there was evidence of impaired walk distance, there was no significant exertional oxygen desaturation. - Recommendations Recommendations: There is no indication for the use of supplemental oxygen at this time.
== END ==
PROVIDERS: Family Provider Family Medicine; PCP Family Medicine; Referring Provider Family Medicine; Visit Provider Family Medicine
DX: R06.09 Other forms of dyspnea (principal); I51.9 Heart disease, unspecified
CPT/HCPCS: 94618

== ENCOUNTER → 2019-06-17 13:48 | Outpatient (CLI) | payer MEDICARE, SELFPAY ==
[2019-05-28 11:15] VITALS: BMI 50.3
--- NOTE | 2019-06-17 13:52 | ECHOCS_ITS ---
Reason For Study: DYSPNEA Procedure This was a 2D Doppler, Color Flow transthoracic echocardiogram. The exam was of poor technical quality due to body habitus. The study was technically difficult. Contrast injection was performed. Exam performed in department. Left Ventricle Normal LV size. Left ventricular systolic function is normal. The estimated ejection fraction is 65 %. No evidence for diastolic dysfunction. No regional wall motion abnormalities noted. Right Ventricle Normal RV size. Normal systolic function. Atria Normal left atrium. Normal right atrium. No doppler evidence for ASD. Mitral Valve There is no mitral annular calcification. Normal mitral valve. Trivial mitral valve insufficiency. Tricuspid Valve Normal tricuspid valve. Trivial tricuspid valve insufficiency. Unable to estimate RV systolic pressure/pulmonary artery pressure due to technically difficult study. Aortic Valve Trisinus/trileaflet aortic valve. Normal aortic valve. Trivial aortic valve insufficiency. Pulmonic Valve The pulmonic valve is not well visualized. Great Vessels Normal sized aortic root. Pericardium/Pleural No pericardial effusion. Medication 22 gauge I.V. with prn adaptor inserted into right arm. Diluted definity 3.0ml given slow IV push to enhance endocardial definition. MMode/2D Measurements & Calculations LVIDd: 5.1 cm IVSd: 0.98 cm Ao root diam: 3.6 cm LVIDs: 3.5 cm LVPWd: 0.98 cm RVDd: 3.8 cm FS: 32.1 % LAV(MOD-bp): 45.6 ml LVAd ap4: 29.9 cm2 SV(MOD-sp4): 62.9 ml LAV(MOD-bp) Indexed: 19.9 ml/m2 EDV(MOD-sp4): 99.2 ml LAV(MOD-sp2): 30.5 ml EDV(sp4-el): 104.1 ml LAV(MOD-sp4): 50.8 ml LVAs ap4: 16.4 cm2 ESV(MOD-sp4): 36.3 ml ESV(sp4-el): 37.6 ml EF(MOD-sp4): 63.4 % EF(sp4-el): 63.9 % SV(sp4-el): 66.5 ml LA A4 area: 19.4 cm2 LA dimension(2D): 4.2 cm RA A4 area: 13.7 cm2 Time Measurements MV dec time: 0.18 sec Doppler Measurements & Calculations MV E max josiah: 103.1 cm/sec Lat Peak E' Josiah: 10.3 cm/sec Med Peak E' Josiah: 7.7 cm/sec MV A max josiah: 93.3 cm/sec E/E' lat: 10.0 E/E' med: 13.4 MV E/A: 1.1 Ao V2 max: 168.2 cm/sec LV V1 max: 127.4 cm/sec PA V2 max: 113.2 cm/sec Ao max P.3 mmHg LV V1 max P.6 mmHg Interpretation Summary The study was technically difficult. Contrast injection was performed. Left ventricular systolic function is normal. The estimated ejection fraction is 65 %. Trivial mitral valve insufficiency. Trivial tricuspid valve insufficiency. Trivial aortic valve insufficiency. Unable to estimate RV systolic pressure/pulmonary artery pressure due to technically difficult study. No evidence for diastolic dysfunction. Ordering Physician: Sukhdeep Matthews Referring Physician: Sukhdeep Matthews Performed By: Karishma Chang, RDCS, RVT
== END ==
PROVIDERS: Family Provider Family Medicine; PCP Family Medicine; Referring Provider Family Medicine; Visit Provider Family Medicine
DX: R06.00 Dyspnea, unspecified (principal); R06.09 Other forms of dyspnea; I10 Essential (primary) hypertension
CPT/HCPCS: 93306; Q9957; A4216; C8929

== ENCOUNTER → 2019-08-25 13:48 | Outpatient (CLI) | payer MEDICARE, SELFPAY ==
[2019-05-28 11:15] VITALS: BMI 50.3
== END ==
PROVIDERS: Family Provider Family Medicine; PCP Family Medicine; Visit Provider Family Medicine
DX: N39.0 Urinary tract infection, site not specified (principal)
CPT/HCPCS: 87077; 87086; 87088; 87186

== ENCOUNTER → 2019-09-09 07:58 | Outpatient (CLI) | payer MEDICARE, SELFPAY ==
[2019-09-09 12:16] VITALS: BMI 50.3
--- NOTE | 2019-09-09 12:30 | EMB_PTH ---
PATIENT: MARIO MONROE LOC: [facility] U#:[id number] AGE/SX: 69/F ROOM: RE09/09/[address]: EV Frias : 1955 BED: DIS: SPEC #: [id number] RECD: 09/09/19 17:35 STATUS: OSEI NINA #: [id number] NI: 09/09/19 12:[address]: Le Abreu NP DEPT: SURGICAL PATHOLOGY RECD BY: Javier Gonzalez ENTERED: 09/10/19 11:51 SP TYPE: ENDOM BX/C CINDY DR: Dr. Sukhdeep Matthews, DO Tissues: Endometrium, NOS Procedures: Surgery Specimen Level IV HEADER OPERATION: Endometrial biopsy PRE-OP DIAGNOSIS: Abnormal uterine bleeding TISSUE SUBMITTED: Endometrial lining MICROSCOPIC DIAGNOSIS Endometrial biopsy: Simple and complex endometrial hyperplasia with focal atypia. See comment. DIPAK:tony 09/11/19 COMMENT Correlation with clinical findings and appropriate follow up are necessary. MICROSCOPIC DESCRIPTION Slides are reviewed. GROSS DESCRIPTION Received is one container labeled with the patient's name and not further designated. The specimen consists of multiple fragments of hemorrhagic soft tissue mixed with mucoid tissue that in aggregate measure 5 x 3 x 0.3 cm. The entire specimen is submitted in two cassettes. / SJ:rg 09/10/19 TC:5 [facility]: [id number]
== END ==
PROVIDERS: Family Provider Family Medicine; PCP Family Medicine; Referring Provider Nurse Practitioner Women's Health; Visit Provider Nurse Practitioner Women's Health
DX: N93.9 Abnormal uterine and vaginal bleeding, unspecified (principal)
CPT/HCPCS: 88305

== ENCOUNTER → 2019-09-12 13:17 | Outpatient (CLI) | payer MEDICARE, SELFPAY ==
[2019-09-09 12:16] VITALS: BMI 50.3
== END ==
PROVIDERS: Family Provider Family Medicine; PCP Family Medicine; Visit Provider Family Medicine
DX: N39.46 Mixed incontinence (principal); N39.0 Urinary tract infection, site not specified
CPT/HCPCS: 87086; 87088; 87186

== ENCOUNTER → 2019-10-06 12:52 | Outpatient (CLI) | payer MEDICARE, OTHER, SELFPAY ==
[2019-09-09 12:16] VITALS: BMI 50.3
--- NOTE | 2019-10-06 12:54 | VDLE_ITS ---
Reason For Study: EDEMA RIGHT LEFT CFV is compressible, spontaneous, phasic, CFV is compressible, spontaneous, phasic, competent and demonstrates normal competent, and demonstrates normal augmentation. augmentation. FV is compressible, spontaneous, phasic, FV is compressible, spontaneous, phasic, competent and demonstrates normal competent and demonstrates normal augmentation. augmentation. POP V is compressible, spontaneous, phasic, POP V is compressible, spontaneous, phasic, competent and demonstrates normal competent and demonstrates normal augmentation. augmentation. T/P Trunk is compressible. T/P Trunk is compressible. PTV is compressible. PTV is compressible. RT PerV is compressible. LT PerV is compressible. SFJ is competent and measures .6 X .7 cm. SFJ is competent and measures .9 X .8 cm. GSV above knee is INCOMPETENT for greater GSV is competent throughout. than 0.5 seconds. GSV at knee measures .3 X .3 cm. GSV at knee measures .4 X .4 cm. SSV at junction is competent and measures .3 GSV below knee is INCOMPETENT for greater X .3 cm. than 0.5 seconds. SSV at junction is competent and measures .3 X .3 cm. RT Heel Stiffener located 15 cm from medial maleolus is INCOMPETENT for greater than .5 sec. Procedure Exam performed in department. Interpretation Summary Deep veins of the lower extremities are bilaterally patent and compressible segmentally. There is no evidence of deep vein thrombosis on either side. Valvular competence appears intact within the proximal deep venous systems bilaterally. The great saphenous veins appear bilaterally patent and compressible segmentally. Sapheno-femoral junctions are bilaterally competent . The right great saphenous vein appears segmentally incompetent. The left great saphenous vein appears segmentally competent. Small saphenous veins are patent and competent bilaterally. An incompetent steamfitter apprentice vein is noted in the right calf, located 15 centimeters proximal to the right medial malleolus. Ordering Physician: Sukhdeep Matthews Referring Physician: Sukhdeep Matthews Performed By: Karishma Chang, ADAN, RVT
== END ==
LOC: CVS 12:53
PROVIDERS: Family Provider Family Medicine; PCP Family Medicine; Referring Provider Family Medicine; Visit Provider Family Medicine
DX: R60.0 Localized edema (principal); M79.604 Pain in right leg; M79.605 Pain in left leg
CPT/HCPCS: 93970

== ENCOUNTER → 2019-11-18 10:45 | Outpatient (CLI) | payer MEDICARE, OTHER, SELFPAY ==
[2019-05-28 11:15] VITALS: BMI 50.3
[2019-09-09 12:16] VITALS: BMI 50.3
[2019-11-18 12:15] LABS: Absolute Lymphocyte Count 2.22 X10^3/uL (0.83-4.51); Absolute Neutrophil Count 5.1 X10^3/uL (2.0-7.7); Basophil# 0.02 X10^3/uL; Basophil% 0.2 % (0-1); Eosinophil# 0.21 X10^3/uL; Eosinophils% 2.6 % (0-5); Hematocrit 37.7 % (37-47); Hemoglobin 12.2 g/dL (12.0-15.0); Lymphocyte # 2.22 X10^3/ul (4.0); Lymphocyte % 27.5 % (19-41); Mean Corp Hgb Conc 32.4 g/dL (32-36); Mean Corpuscular Hgb 26.4 pg (27.0-32.0); Mean Corpuscular Volume 81.6 fL (81-99); Mean Platelet Vol. 10.2 fl (6.2-12.0); Monocyte# 0.46 X10^3/uL; Monocyte% 5.7 % (0-10); NRBC Flagged by Analyzer 0 % (0-5); Neutrophil % 63.1 % (47-70); Platelet Count 436 K/mm3 (150-450); RBC Distribution Width CV 16.4 % (11.6-14.6); RBC Distribution Width SD 48.2 fl (35.1-43.9); Red Blood Count 4.62 M/mm3 (4.2-5.4); White Blood Count 8.1 K/mm3 (4.4-11.0)
[2019-11-18 12:25] LABS: Microalbumin,Random Urine 8.2 mg/L (NO RANGE EST.); Microalbumin:Creatinine Ratio 10.1 mg/g CRE (<30 mg/g CRE)
[2019-11-18 12:30] LABS: International Normalized Ratio 1.9; Prothrombin Time (Protime)PT. 21.8 SECONDS (11.7-14.9)
[2019-11-18 12:38] LABS: ALB/GLOB Ratio 0.8 RATIO (0.9-2.4); AST(SGOT) 14 U/L (15-37); Alanine Aminotransfer ALT/SGPT 24 U/L (13-56); Albumin, Serum 3.2 g/dL (3.2-5.0); Alkaline Phosphatase 78 U/L (45-117); Anion Gap 3 (5-15); BUN 13 mg/dL (7-18); BUN/Creat Ratio 17.2 RATIO (10-20); Chloride 103 mmol/L (98-107); Cholesterol 129 mg/dL (200); Creatinine, Serum 0.75 mg/dL (0.55-1.02); EST Glomerular Filtration Rate 82 mL/min (>60); Est Glom Filt Rate - Afr Amer 99 mL/min (>60); Glucose 212 mg/dL (74-106); High Density Lipoprotein 41 mg/dL; Potassium 3.7 mmol/L (3.5-5.1); Protein, Total 7.2 g/dL (6.4-8.2); Sodium Level 137 mmol/L (136-145); Thyroid Stim Hormone (TSH) 2.87 uIU/mL (0.358-3.74); Triglycerides 222 mg/dL; Very Low Density Lipoprotein 44 mg/dL (5-40)
== END ==
LOC: LAB.FUTURE 10:45 → BFHLAB 03-12 11:11
PROVIDERS: Family Provider Family Medicine; PCP Family Medicine; Visit Provider Family Medicine
DX: E11.9 Type 2 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 without complications (principal); I10 Essential (primary) hypertension; E78.5 Hyperlipidemia, unspecified; R53.83 Other fatigue; J45.909 Unspecified asthma, uncomplicated; Z51.81 Encounter for therapeutic drug level monitoring; E87.6 Hypokalemia; R06.00 Dyspnea, unspecified; D68.59 Other primary thrombophilia
CPT/HCPCS: 36415; 80053; 80061; 82043; 82570; 83036; 84443; 85025; 85610

== ENCOUNTER → 2019-12-04 13:50 | Outpatient (CLI) | payer MEDICARE, OTHER, SELFPAY ==
[2019-09-09 12:16] VITALS: BMI 50.3
[2019-12-04 15:32] LABS: Absolute Lymphocyte Count 1.78 X10^3/uL (0.83-4.51); Absolute Neutrophil Count 4.1 X10^3/uL (2.0-7.7); Basophil# 0.02 X10^3/uL; Basophil% 0.3 % (0-1); Eosinophil# 0.18 X10^3/uL; Eosinophils% 2.8 % (0-5); Hematocrit 35.1 % (37-47); Hemoglobin 10.9 g/dL (12.0-15.0); Lymphocyte # 1.78 X10^3/ul (4.0); Lymphocyte % 27.8 % (19-41); Mean Corp Hgb Conc 31.1 g/dL (32-36); Mean Corpuscular Hgb 25.4 pg (27.0-32.0); Mean Corpuscular Volume 81.8 fL (81-99); Mean Platelet Vol. 9.5 fl (6.2-12.0); Monocyte# 0.32 X10^3/uL; NRBC Flagged by Analyzer 0 % (0-5); Neutrophil # 4.07 X10^3/uL (2.7-7.7); Neutrophil % 63.5 % (47-70); Platelet Count 408 K/mm3 (150-450); RBC Distribution Width CV 15.9 % (11.6-14.6); RBC Distribution Width SD 47.6 fl (35.1-43.9); Red Blood Count 4.29 M/mm3 (4.2-5.4); White Blood Count 6.4 K/mm3 (4.4-11.0)
== END ==
PROVIDERS: PCP Family Medicine; Visit Provider Family Medicine
DX: N93.9 Abnormal uterine and vaginal bleeding, unspecified (principal)
CPT/HCPCS: 36415; 85025

== ENCOUNTER → 2019-12-26 15:13 | Outpatient (CLI) | payer MEDICARE, OTHER, SELFPAY ==
[2019-09-09 12:16] VITALS: BMI 50.3
[2019-12-26 17:40] LABS: International Normalized Ratio 3.4; Prothrombin Time (Protime)PT. 34.5 SECONDS (11.7-14.9)
== END ==
PROVIDERS: PCP Family Medicine; Referring Provider Family Medicine; Visit Provider Family Medicine
DX: D68.2 Hereditary deficiency of other clotting factors (principal)
CPT/HCPCS: 36415; 85610

== ENCOUNTER → 2020-02-25 14:03 | Outpatient (CLI) | payer MEDICARE, OTHER, SELFPAY ==
[2019-09-09 12:16] VITALS: BMI 50.3
[2020-02-25 15:49] LABS: Hemoglobin A1c 8.7 % (3.8-5.6)
[2020-02-25 17:34] LABS: Color, Urine Yellow (Yellow); Glucose, Dipstick 100 mg/dl (Normal); Ketone-Dipstick 5 mg/dl (Negative); Leukocyte Esterase-Dipstick 500 /ul (Negative); Nitrite-Dipstick Positive (Negative); Occult Blood-Urine 25 /ul (Negative); Protein-Dipstick 30 mg/dl (Negative); Urine Bilirubin Dipstick Negative (Negative); Urine Clarity Turbid (Clear); Urine Urobilinogen Normal (Normal)
== END ==
PROVIDERS: PCP Family Medicine; Visit Provider Family Medicine
DX: E11.9 Type 2 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 without complications (principal); N39.0 Urinary tract infection, site not specified
CPT/HCPCS: 36415; 81002; 83036; 87086; 87088; 87186

== ENCOUNTER → 2020-03-12 15:01 | Outpatient (CLI) | payer MEDICARE, OTHER, SELFPAY ==
[2019-09-09 12:16] VITALS: BMI 50.3
[2020-03-12 15:04] LABS: Mucous, Urine 0 SEEN /hpf (<or=2+)
[2020-03-12 16:50] LABS: Color, Urine Yellow (Yellow); Glucose, Dipstick 250 mg/dl (Normal); Ketone-Dipstick 5 mg/dl (Negative); Leukocyte Esterase-Dipstick 500 /ul (Negative); Nitrite-Dipstick Negative (Negative); Occult Blood-Urine 25 /ul (Negative); Protein-Dipstick 30 mg/dl (Negative); Specific Gravity, Urine 1.025 (1.002-1.030); Urine Bilirubin Dipstick Negative (Negative); Urine Clarity Cloudy (Clear); Urine Urobilinogen Normal (Normal)
[2020-03-12 17:49] LABS: Bacteria 2+ /hpf (None Seen); Red Blood Cells-Urine 0-5 SEEN /hpf (0-5); Squamous Epithelial Cells - UA 0-5 SEEN /hpf (5-10); White Blood Cells 50-100 SEEN /hpf (0-5)
[2020-03-12 17:50] LABS: Calcium Oxalate Crystals Ur 1+ /hpf (<or=2+)
== END ==
PROVIDERS: PCP Family Medicine; Visit Provider Family Medicine
DX: R30.0 Dysuria (principal); N39.46 Mixed incontinence
CPT/HCPCS: 81001; 87086; 87088; 87186

== ENCOUNTER → 2020-04-02 13:14 | Outpatient (CLI) | payer MEDICARE, OTHER, SELFPAY ==
[2019-09-09 12:16] VITALS: BMI 50.3
[2020-04-02 15:22] LABS: Absolute Lymphocyte Count 2.22 X10^3/uL (0.83-4.51); Absolute Neutrophil Count 5.2 X10^3/uL (2.0-7.7); Basophil# 0.03 X10^3/uL; Basophil% 0.4 % (0-1); Eosinophils% 2.4 % (0-5); Hematocrit 36.6 % (37-47); Hemoglobin 11.2 g/dL (12.0-15.0); Lymphocyte # 2.22 X10^3/ul (4.0); Mean Corp Hgb Conc 30.6 g/dL (32-36); Mean Corpuscular Hgb 24.6 pg (27.0-32.0); Mean Corpuscular Volume 80.3 fL (81-99); Mean Platelet Vol. 9.9 fl (6.2-12.0); Monocyte# 0.48 X10^3/uL; Monocyte% 5.8 % (0-10); NRBC Flagged by Analyzer 0 % (0-5); Neutrophil # 5.23 X10^3/uL (2.7-7.7); Neutrophil % 63.8 % (47-70); Platelet Count 471 K/mm3 (150-450); RBC Distribution Width CV 18.6 % (11.6-14.6); RBC Distribution Width SD 51.7 fl (35.1-43.9); Red Blood Count 4.56 M/mm3 (4.2-5.4); White Blood Count 8.2 K/mm3 (4.4-11.0)
[2020-04-02 16:13] LABS: Anion Gap 10 (5-15); BUN 17 mg/dL (7-18); BUN/Creat Ratio 25.4 RATIO (10-20); Calcium,Total 9.7 mg/dL (8.5-10.1); Chloride 103 mmol/L (98-107); Creatinine, Serum 0.67 mg/dL (0.55-1.02); EST Glomerular Filtration Rate 94 mL/min (>60); Est Glom Filt Rate - Afr Amer 113 mL/min (>60); Ferritin 19 ng/mL (8-252); Glucose 152 mg/dL (74-106); Iron 57 ug/dL (50-170); Potassium 3.8 mmol/L (3.5-5.1); Sodium Level 139 mmol/L (136-145)
[2020-04-02 16:21] LABS: BNP,B-Type NATRIURETIC PEPTIDE 62.3 pg/mL (0-100)
[2020-04-03 08:55] LABS: SARS-COV-2 TOTAL ABS Nonreactive (Nonreactive)
== END ==
PROVIDERS: PCP Family Medicine; Visit Provider Family Medicine
DX: N39.0 Urinary tract infection, site not specified (principal); D68.2 Hereditary deficiency of other clotting factors; Z20.828 Contact with and (suspected) exposure to other viral communicable diseases; I11.0 Hypertensive heart disease with heart failure; I50.32 Chronic diastolic (congestive) heart failure; D64.9 Anemia, unspecified; Z79.01 Long term (current) use of anticoagulants
CPT/HCPCS: 80048; 82728; 83540; 83880; 85025; 86769; G2023

== ENCOUNTER 2020-04-26 13:52 | Emergency (ER) | payer MEDICARE, OTHER, SELFPAY ==
[2019-09-09 12:16] VITALS: BMI 50.3
[2020-04-26] VITALS (7 sets, daily range): BP systolic 124–178; BP diastolic 59–106; PULSE 83–95; RESP 15–28; TEMP 36.6–37; O2SAT 93–97; BMI 48.4
--- NOTE | 2020-04-26 14:13 | EKG12_ITS ---
Test Reason : SOB Blood Pressure : / mmHG Vent. Rate : 079 BPM Atrial Rate : 079 BPM P-R Int : 152 ms QRS Dur : 092 ms QT Int : 382 ms P-R-T Axes : 057 021 027 degrees QTc Int : 438 ms Normal sinus rhythm Normal ECG Confirmed by JOE CEDENO, SANDI ([id number]), makeup editor LINUS IQBAL ([id number]) on 04/28/2020 10:55:27 AM Referred By: DMITRY Confirmed By:SANDI DIAZ MD
--- NOTE | 2020-04-26 14:13 | RAD_ITS ---
STUDY: X-RAY CHEST REASON FOR EXAM: Female, 64 years old. DYSPNEA ON EXERTION, INCREASED SHORTNESS OF BREATH AND EDEMA, LEFT SHOULDER PAIN TECHNIQUE: AP portable COMPARISON: 08/19/2018 FINDINGS: There is elevated right hemidiaphragm and mild basilar atelectasis. There also appears to be mild subsegmental atelectasis in left lower lobe. There is no demonstrated pleural abnormality. Normal size heart. Normal mediastinum and tessie. Normal visualized pulmonary arteries. Normal visualized aortic arch and descending thoracic aorta. Dorsal spine demonstrates mild spondylosis. Normal visualized ribs, clavicles, and shoulders. There is no demonstrated abnormality of the visualized soft tissue structures of the upper abdomen. RAD/Chest 1 View (Portable) IMPRESSION: Elevated right hemidiaphragm and mild basilar atelectasis. Minor subsegmental atelectasis in left lower lobe Electronically Signed: Eleazar Venegas MD at 16:50 EDT , Service support ,
--- NOTE | 2020-04-26 14:15 | ED.VIS.DYS ---
History of Present Illness Chief Complaint: Edema Informant: Patient Onset: Days - 3 Activity at onset: Exertion, Light Activity Timing: Intermittent Quality: Dyspnea on exertion Current Severity: Mild Maximum Severity: Moderate Worsened by: Exertion, Lying flat Relieved by: Rest Associated Symptoms: Cough - minor, chronic, unchanged. Negative for: Chills, Fever Chest Pain: None Narrative: Patient states she has had increased swelling in her legs and increased in her chronic dyspnea with exertion for the last several days. She has chronic orthopnea and that is no different. She denies any chest discomfort, symptoms of an illness/upper respiratory tract infection, fevers, chills, myalgias, or contact with anyone that she knows of with COVID-19. She states she has asymmetric swelling in her legs, worse on the right, but has been chronic ever since she had a DVT there years ago, for which she has been on warfarin the entire time. She denies any bleeding recently. She checks her INR at home. A week ago it was abnormally high, so she change the dose injected again 3 days ago, and it was low at 1.4 so she adjusted her dose accordingly. She says she was diagnosed with congestive heart failure according to her family doctor, however she had an echo last year that does not show any evidence of congestive heart failure, and she remembers being told that, so she states she is confused and does not know if she has it or not. She does not see a commercial airplane pilot regularly, she was seen by one here in the hospital when she was admitted 7 years ago or so. She denies any new leg or calf pains. No recent long travel, hospitalization, immobilization. She has been getting around fine. She has been urinating like normal. When she takes her Lasix, it does cause her to urinate, she takes 20 mg once daily in addition to HCTZ and has had no recent medication changes. She does not think she has been drinking more fluids than usual. When asked if she has been eating more salt than usual, she thinks about it and states that she may have been, but certainly not intentionally. - Past Medical History (1) DVT (deep venous thrombosis) Status: Chronic (2) Diabetes mellitus Status: Chronic (3) Factor V Leiden Status: Chronic (4) HLD (hyperlipidemia) Status: Chronic (5) HTN (hypertension) Status: Chronic (6) Pulmonary emboli Status: Chronic Past Medical History - Allergies and Home Meds Allergies/Adverse Reactions: Allergies KENYA Inhibitors Allergy (Verified 04/26/20 13:53) cough clindamycin Allergy (Verified 04/26/20 13:53) Hives liraglutide [From Victoza] Allergy (Verified 04/26/20 13:53) lump in throat propoxyphene napsylate [From Darvocet-N 100] Allergy (Verified 04/26/20 13:53) Unknown Primary Care Physician: Sukhdeep Matthews DO [Primary Care Provider] - Smoking Status: Never smoker - Family History Paternal Family History: Family History (Last Reviewed 09/09/19 @ 12:13 by Magda Moreira) Father Diabetes Heart disease Mother CVA (cerebral vascular accident) Alzheimer disease Sister Cancer Family History: Reports: Heart Disease - CHF Review of Systems General: Denies: Chills, Fever, Sweats Eyes: Denies: Visual changes - bilaterally, Diplopia ENT: Denies: Bilateral ear pain, Rhinorrhea, Sore throat Cardiovascular: Reports: Palpitations - chronically intermittent, sometimes a skip, sometimes racing, no changes in past 3 days. Denies: Chest pain Respiratory: Reports: Dyspnea, Cough, Dyspnea on exertion, Orthopnea. Denies: Sputum Gastrointestinal: Denies: Abdominal pain, Nausea, Vomiting, Diarrhea, Melena, Hematochezia Genitourinary: Denies: Dysuria, Hematuria, Frequency Musculoskeletal: Reports: Swelling. Denies: Neck pain, Back pain, Extremity Pain Skin: Denies: Rash, Wounds Neurological: Denies: Headache, Weakness, Numbness Physical Exam Vital Signs/Narrative: Vital Signs Temp Pulse Resp BP Pulse Ox 04/26/20 14:10 98 F 88 17 178/90 H 96 04/26/20 13:54 98.0 F 88 17 178/90 H 96 Inital Vital Signs reviewed: Yes General: Well nourished, Well developed, Obese, No Acute Distress Head: Normocephalic, Atraumatic Eyes: Perrl, EOMI ENT: Moist mucous membranes, No rhinorrhea Neck: Supple, Nontender, No lymphadenopathy, No JVD Cardiovascular: Regular rate, Regular rhythm, No murmurs, Normal S1, Normal S2. Negative for: Tachycardia Respiratory: No distress, CTA bilaterally, Chest nontender Abdomen: Soft, Nontender, Nondistended, Normal bowel sounds Back: Nontender, Normal Inspection. Negative for: CVA tenderness Extremities: Nontender, Edema - BLE to knees, mildly more prominent on right. pitting.. Negative for: Calf Tenderness Skin: Normal color, No rash, No Trauma Neurological: Alert, Oriented x3, Cranial nerves II-XII grossly intact, Normal Strength, Normal Sensation Psychological: Normal affect, Normal Mood Diagnostic/Tx/Re-eval Impressions Chest X-Ray 04/26/20 14:13 IMPRESSION: Elevated right hemidiaphragm and mild basilar atelectasis. Minor subsegmental atelectasis in left lower lobe Electronically Signed: Eleazar Venegas MD at 16:50 EDT , Service support , 04/26/20 14:13 Chest 1 View (Portable) [RAD] Stat Laboratory Results 04/26/20 04/26/20 04/26/20 14:25 14:40 14:40 WBC 7.6 RBC 4.37 Hgb 10.7 L Hct 35.6 L MCV 81.5 MCH 24.5 L MCHC 30.1 L RDW Std Deviation 55.3 H RDW Coeff of Jane 18.9 H Plt Count 416 MPV 9.5 Immature Gran % (Auto) 0.500 Neut % (Auto) 67.4 Lymph % (Auto) 20.2 [place] % (Auto) 5.2 Eos % (Auto) 6.3 H Baso % (Auto) 0.4 Absolute Neuts (auto) 5.1 Absolute Lymphs (auto) 1.53 Nucleated RBC % 0 PT INR Sodium 140 Potassium 3.4 L Chloride 106 Carbon Dioxide 31.0 Anion Gap 3 L BUN 11 Creatinine 0.73 Estim Creat Clear Calc 66.35 Est GFR (MDRD) Af Amer 103 Est GFR (MDRD) Non-Af 85 BUN/Creatinine Ratio 15.0 Glucose 183 H Calcium 8.9 Troponin I < 0.015 B-Natriuretic Peptide TSH 2.18 Urine Color Yellow Urine Clarity Sl. Cloudy Urine pH 6.0 Ur Specific [place] 1.010 Urine Protein Negative Urine Glucose (UA) Normal Urine Ketones Negative Urine Occult Blood Negative Urine Nitrite Negative Urine Bilirubin Negative Urine Urobilinogen Normal Ur Leukocyte Esterase 25 H Urine RBC 0-5 SEEN Urine WBC 0-5 SEEN Ur Squamous Epith Cells 0-5 SEEN Urine Bacteria 0 SEEN Urine Mucus 0 SEEN 04/26/20 04/26/20 14:40 14:40 WBC RBC Hgb Hct MCV MCH MCHC RDW Std Deviation RDW Coeff of Jane Plt Count MPV Immature Gran % (Auto) Neut % (Auto) Lymph % (Auto) [place] % (Auto) Eos % (Auto) Baso % (Auto) Absolute Neuts (auto) Absolute Lymphs (auto) Nucleated RBC % PT 20.9 H INR 1.9 Sodium Potassium Chloride Carbon Dioxide Anion Gap BUN Creatinine Estim Creat Clear Calc Est GFR (MDRD) Af Amer Est GFR (MDRD) Non-Af BUN/Creatinine Ratio Glucose Calcium Troponin I B-Natriuretic Peptide 62.8 TSH Urine Color Urine Clarity Urine pH Ur Specific [place] Urine Protein Urine Glucose (UA) Urine Ketones Urine Occult Blood Urine Nitrite Urine Bilirubin Urine Urobilinogen Ur Leukocyte Esterase Urine RBC Urine WBC Ur Squamous Epith Cells Urine Bacteria Urine Mucus Treatment - Dyspnea: - - furosemide IV Repeat Evaluation: Improved With Ambulation: Asymptomatic - Medical Decision Making Even before walking after Lasix 20 mg IV, patient is feeling better. With ambulation, she did very well, she did feel better than she had, and her oxygen level stayed at or above 91% on room air. She put out a lot of urine in response to the Lasix, so I think 20 orally twice daily for several days would be reasonable. I do not think he has pulmonary embolus, I do not think she needs tested for COVID-19 at this time. Her chest x-ray looks good, and her lungs are clear clinically. Her BNP is very low, I can reassure her that she is not currently in acute decompensated congestive heart failure. Her INR is almost therapeutic at 1.9, she should continue on the current dose that she is on with regards to her warfarin. Advised to follow-up with her doctor, she is comfortable with that plan and advised to continue taking her HCTZ during this as well. ED Disposition - Plan for ED Patient: Disposition: Home or Assisted Living Diagnosis: Dyspnea on exertion, Lower extremity edema Instructions: ED Dyspnea, ED Peripheral Edema, Bilateral Referrals: Sukhdeep Matthews DO [Primary Care Provider] - 3-5 Days Additional Instructions: Today her INR is 1.9. Continue on your Coumadin dose and check your INR in approximately 4-6 days. Your thyroid function screen is normal. Your testing shows that you are not in acute congestive heart failure at this time. Increase your furosemide to 20 mg twice daily, taking once in the morning and once in the early or mid afternoon, for the next 3 or 4 days. Then go back to her normal once in the morning dosing and follow-up with your doctor for reevaluation.
[2020-04-26] MEDS: Furosemide 20 MG/2 ML VIAL IV (14:38)
[2020-04-26] MEDS: Albuterol 2.5 MG/3 ML VIAL.NEB. INHALATION (14:50)
[2020-04-26 15:00] LABS: Absolute Lymphocyte Count 1.53 X10^3/uL (0.83-4.51); Absolute Neutrophil Count 5.1 X10^3/uL (2.0-7.7); Basophil# 0.03 X10^3/uL; Basophil% 0.4 % (0-1); Eosinophil# 0.48 X10^3/uL; Eosinophils% 6.3 % (0-5); Hematocrit 35.6 % (37-47); Hemoglobin 10.7 g/dL (12.0-15.0); Lymphocyte # 1.53 X10^3/ul (4.0); Lymphocyte % 20.2 % (19-41); Mean Corp Hgb Conc 30.1 g/dL (32-36); Mean Corpuscular Hgb 24.5 pg (27.0-32.0); Mean Corpuscular Volume 81.5 fL (81-99); Mean Platelet Vol. 9.5 fl (6.2-12.0); Monocyte# 0.39 X10^3/uL; Monocyte% 5.2 % (0-10); NRBC Flagged by Analyzer 0 % (0-5); Neutrophil # 5.09 X10^3/uL (2.7-7.7); Neutrophil % 67.4 % (47-70); Platelet Count 416 K/mm3 (150-450); RBC Distribution Width CV 18.9 % (11.6-14.6); RBC Distribution Width SD 55.3 fl (35.1-43.9); Red Blood Count 4.37 M/mm3 (4.2-5.4); White Blood Count 7.6 K/mm3 (4.4-11.0)
[2020-04-26 15:09] LABS: International Normalized Ratio 1.9; Prothrombin Time (Protime)PT. 20.9 SECONDS (11.7-14.9)
[2020-04-26 15:18] LABS: BNP,B-Type NATRIURETIC PEPTIDE 62.8 pg/mL (0-100)
[2020-04-26 15:28] LABS: Anion Gap 3 (5-15); BUN 11 mg/dL (7-18); Calcium,Total 8.9 mg/dL (8.5-10.1); Chloride 106 mmol/L (98-107); Creatinine, Serum 0.73 mg/dL (0.55-1.02); EST Glomerular Filtration Rate 85 mL/min (>60); Est Glom Filt Rate - Afr Amer 103 mL/min (>60); Estimated Creatinine Clearance 66.35 ml/min; Glucose 183 mg/dL (74-106); Potassium 3.4 mmol/L (3.5-5.1); Sodium Level 140 mmol/L (136-145); Thyroid Stim Hormone (TSH) 2.18 uIU/mL (0.358-3.74)
[2020-04-26 15:49] LABS: Bacteria 0 SEEN /hpf (None Seen); Mucous, Urine 0 SEEN /hpf (<or=2+)
[2020-04-26 15:59] LABS: Color, Urine Yellow (Yellow); Glucose, Dipstick Normal (Normal); Ketone-Dipstick Negative (Negative); Leukocyte Esterase-Dipstick 25 /ul (Negative); Nitrite-Dipstick Negative (Negative); Occult Blood-Urine Negative /ul (Negative); Protein-Dipstick Negative (Negative); Urine Bilirubin Dipstick Negative (Negative); Urine Clarity Sl. Cloudy (Clear); Urine Urobilinogen Normal (Normal)
[2020-04-26 16:09] LABS: Red Blood Cells-Urine 0-5 SEEN /hpf (0-5); Squamous Epithelial Cells - UA 0-5 SEEN /hpf (5-10); White Blood Cells 0-5 SEEN /hpf (0-5)
== END 2020-04-26 18:09 | disposition home or self-care (01) ==
PROVIDERS: Emergency Provider Emergency Medicine; PCP Family Medicine
DX: R06.09 Other forms of dyspnea (principal); R60.0 Localized edema; R05 Cough; I10 Essential (primary) hypertension; E11.9 Type 2 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 without complications; D68.51 Activated protein C resistance; E78.5 Hyperlipidemia, unspecified; E66.9 Obesity, unspecified; Z79.01 Long term (current) use of anticoagulants; Z79.84 Long term (current) use of oral hypoglycemic drugs; Z79.899 Other long term (current) drug therapy; Z86.718 Personal history of other venous thrombosis and embolism; Z86.711 Personal history of pulmonary embolism
CPT/HCPCS: 71045; 80048; 81001; 83880; 84443; 84484; 85025; 85610; 93005; 94640; 96374; 99284; A4216; J1940

== ENCOUNTER → 2020-05-06 14:40 | Outpatient (CLI) | payer MEDICARE, OTHER, SELFPAY ==
[2019-09-09 12:16] VITALS: BMI 50.3
[2020-04-26 13:54] VITALS: BMI 48.4
--- NOTE | 2020-05-06 14:41 | BI_ITS ---
MAMMOGRAPHY - BILATERAL SCREENING REASON FOR EXAM: Female, 64 years old. Routine annual screening examination. PERTINENT HISTORY: Aunt with breast cancer. TECHNIQUE: Digital bilateral breast adelina (3D mammographic acquisition) in the CC and MLO projections. 2-D mediolateral oblique (MLO) and craniocaudad (CC) views of both breasts were obtained. CAD: Full Field Digital Mammography with Computer Added Detection was performed. COMPARISON: Comparison is made with prior study dated 03/19/2019 and 10/24/2007. FINDINGS: Breast Composition: The breasts are almost entirely fatty. There are no dominant masses or suspicious calcifications. No other significant abnormalities are identified. There has been no significant change since the prior study. BI/SCREEN MAMM (CAD) W/ADELINA BILAT IMPRESSION: Stable bilateral screening mammogram. Yearly follow-up mammogram recommended. (A) ASSESSMENT CATEGORY: BIRADS Category 1: Negative. A letter regarding these results will be sent to the patient by the facility within 30 days. Approximately 10% of breast cancers are not detected by mammography. A normal mammogram should not delay biopsy of a clinically suspicious abnormality. [id number] Electronically Signed: Darius Marin, at 15:58 EDT , Service support ,
--- NOTE | 2020-05-06 14:46 | BD_ITS ---
STUDY: DUAL ENERGY X-RAY ABSORPTIOMETRY / DXA REASON FOR EXAM: Female, 64 years old. 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 COMPARISON: None. FINDINGS: Lumbar Spine (L1-L4): g/cm2 (0.998) / T-score (-1.4) / Z-score (0.2) Findings are suggestive of osteopenia with a low fracture risk. Right Forearm: g/cm2 (0.770) / T-score (-1.2) / Z-score (0.2) Left Forearm: g/cm2 (0.780) / T-score (-1.1) / Z-score (0.3) BD/Dexa Bone Density Study IMPRESSION: The patient is considered osteopenic as outlined below according to World Randal Organization (WHO) criteria with a low fracture risk. Reference Information: The T-score is the number of standard deviations above or below the standard which is normal for young adults at their peak bone mineral density. The World Health Organization (WHO) interprets the T-scores as follows: Above -1 Normal bone density Between -1 and -2.5 Osteopenia Equal to / or below -2.5 Osteoporosis As a practical clinical guideline, osteopenia may be graded as follows: Mild -1 through -1.5 Moderate -1.6 through -2.0 Severe -2.1 through -2.4 The Z-score is the number of standard deviations above or below age-matched controls. A Z-score of less than -1.5 would be considered abnormal. References: 1. NIH Osteoporosis and Related Bone Diseases http://www.osteo.org 2. International Society for Clinical Densitometry http://www.iscd.org 3. National Osteoporosis Foundation http://www.nof.org Electronically Signed: Darius Marin, at 7:59 EDT , Service support ,
== END ==
PROVIDERS: PCP Family Medicine; Referring Provider Nurse Practitioner Women's Health; Visit Provider Family Medicine
DX: Z12.31 Encounter for screening mammogram for malignant neoplasm of breast (principal); M81.0 Age-related osteoporosis without current pathological fracture; M85.80 Other specified disorders of bone density and structure, unspecified site; E11.9 Type 2 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 without complications; Z79.51 Long term (current) use of inhaled steroids; Z80.3 Family history of malignant neoplasm of breast
CPT/HCPCS: 77063; 77067; 77080

== ENCOUNTER → 2020-06-15 20:32 | Outpatient (CLI) | payer MEDICARE, OTHER, SELFPAY ==
[2020-06-02 05:42] VITALS: BMI 49.6
[2020-06-08 11:53] VITALS: BMI 49.6
== END ==
PROVIDERS: PCP Family Medicine; Referring Provider Internal Medicine Critical Care Medicine; Visit Provider Internal Medicine Critical Care Medicine
DX: G47.33 Obstructive sleep apnea (adult) (pediatric) (principal)
CPT/HCPCS: 95811

== ENCOUNTER 2020-09-20 10:55 | Emergency (ER) | payer MEDICARE, OTHER, SELFPAY ==
[2020-06-08 11:53] VITALS: BMI 49.6
[2020-09-20 10:56] VITALS: BP 145/91; PULSE 88; RESP 21; TEMP 36.2; O2SAT 97; BMI 49.8
--- NOTE | 2020-09-20 11:20 | EKG12_ITS ---
Test Reason : CP Blood Pressure : / mmHG Vent. Rate : 080 BPM Atrial Rate : 080 BPM P-R Int : 146 ms QRS Dur : 094 ms QT Int : 386 ms P-R-T Axes : 048 027 034 degrees QTc Int : 445 ms Sinus rhythm with Premature atrial complexes Otherwise normal ECG Confirmed by DAYAMI CEDENO, DEJAN ([id number]), script editor EDSIRE LIMA ([id number]) on 09/27/2020 9:12:44 AM Referred By: KAREN Confirmed By:CHANDA STOCK MD
[2020-09-20 11:30] LABS: Absolute Lymphocyte Count 2.64 X10^3/uL (0.83-4.51); Absolute Neutrophil Count 5.2 X10^3/uL (2.0-7.7); Basophil# 0.02 X10^3/uL; Basophil% 0.2 % (0-1); Eosinophil# 0.22 X10^3/uL; Eosinophils% 2.5 % (0-5); Hemoglobin 10.9 g/dL (12.0-15.0); Lymphocyte # 2.64 X10^3/ul (4.0); Lymphocyte % 30.4 % (19-41); Mean Corp Hgb Conc 31.1 g/dL (32-36); Mean Corpuscular Hgb 26.2 pg (27.0-32.0); Mean Corpuscular Volume 84.1 fL (81-99); Mean Platelet Vol. 9.5 fl (6.2-12.0); Monocyte# 0.53 X10^3/uL; Monocyte% 6.1 % (0-10); NRBC Flagged by Analyzer 0 % (0-5); Neutrophil # 5.23 X10^3/uL (2.7-7.7); Neutrophil % 60.5 % (47-70); Platelet Count 344 K/mm3 (150-450); RBC Distribution Width CV 18.5 % (11.6-14.6); RBC Distribution Width SD 51.7 fl (35.1-43.9); Red Blood Count 4.16 M/mm3 (4.2-5.4); White Blood Count 8.7 K/mm3 (4.4-11.0)
--- NOTE | 2020-09-20 11:36 | ED.DCSUM_ITS ---
History of Present Illness Chief Complaint: Chest Pain Informant: Patient Onset: Days - 3 days Context: Gradual Onset Current Severity: Mild Maximum Severity: Moderate Narrative: Patient presents secondary to multiple symptoms. She states she got sick on . She complains of nausea and upper abdominal pain. She has increased shortness of breath and cough with white-colored sputum production. She states she was getting some intermittent left upper chest pain not brought on by exertion. She has not noted fever or chills. Patient does have a history of clotting disorder and is on Coumadin. She denies history of coronary artery disease. - Past Medical History (1) Anxiety and depression Status: Chronic (2) Asthma Status: Chronic (3) Congestive heart failure Status: Chronic (4) DVT (deep venous thrombosis) Status: Chronic (5) Diabetes mellitus Status: Chronic (6) Factor V Leiden Status: Chronic (7) HLD (hyperlipidemia) Status: Chronic (8) HTN (hypertension) Status: Chronic (9) MITZI (obstructive sleep apnea) Status: Chronic (10) Pulmonary emboli Status: Chronic Past Medical History - Allergies and Home Meds Allergies/Adverse Reactions: Allergies KENYA Inhibitors Allergy (Verified 06/08/20 11:36) cough clindamycin Allergy (Verified 06/08/20 11:36) Hives liraglutide [From Victoza] Allergy (Verified 06/08/20 11:36) lump in throat metoprolol Allergy (Verified 06/08/20 11:36) unk propoxyphene napsylate [From Darvocet-N 100] Allergy (Verified 06/08/20 11:36) Unknown Primary Care Physician: Sukhdeep Matthews DO [Primary Care Provider] - Smoking Status: Never smoker - Family History Paternal Family History: Family History (Last Reviewed 06/08/20 @ 11:45 by Gricelda Moreira) Father Diabetes Heart disease Mother CVA (cerebral vascular accident) Alzheimer disease Sister Cancer Family History: Reports: Heart Disease - CHF Review of Systems General: Denies: Chills, Fever Eyes: Denies: Visual changes - bilaterally ENT: Denies: Bilateral ear pain Cardiovascular: Reports: Chest pain Respiratory: Reports: Dyspnea, Cough, Sputum Gastrointestinal: Reports: Abdominal pain, Diarrhea. Denies: Vomiting Genitourinary: Denies: Dysuria Musculoskeletal: Reports: Extremity Pain Skin: Denies: Rash Neurological: Denies: Headache Hematologic: Denies: Easy bruising, Easy bleeding Allergy: Denies: Uticaria Physical Exam Vital Signs/Narrative: Vital Signs Temp Pulse Resp BP Pulse Ox 09/20/20 10:56 97.1 F L 88 21 H 145/91 H 97 Inital Vital Signs reviewed: Yes General: Well nourished, Well developed Head: Normocephalic ENT: Moist mucous membranes Neck: Supple Cardiovascular: Regular rate, Regular rhythm Respiratory: No distress, CTA bilaterally Abdomen: Soft, Normal bowel sounds, Tender - Mild epigastric tenderness. Extremities: Nontender Skin: Normal color Neurological: Alert, Oriented x3 Psychological: Normal affect Diagnostic/Tx/Re-eval Chest X-Ray - ED: 1 View, Read by ED Physician, Chronic Changes Impressions Chest X-Ray 09/20/20 12:12 IMPRESSION: Normal x-ray examination of the chest. Electronically Signed: Larissa Ibrahim, at 13:18 EST Tel , Service support , Chest CTA 09/20/20 13:19 IMPRESSION: No demonstrated pulmonary embolism or arterial dissection. Electronically Signed: Larissa Ibrahim, at 14:29 EST Tel , Service support , 09/20/20 12:12 Chest 1 View (Portable) [RAD] Stat 09/20/20 13:19 CTA Chest W/WO Contrast [CT] Stat 09/20/20 11:35 Mucosa - Nose SARS-CoV-2 Antigen (Rapid) - Final Laboratory Results 09/20/20 09/20/20 09/20/20 11:10 11:10 11:10 WBC 8.7 RBC 4.16 L Hgb 10.9 L Hct 35.0 L MCV 84.1 MCH 26.2 L MCHC 31.1 L RDW Std Deviation 51.7 H RDW Coeff of Jane 18.5 H Plt Count 344 MPV 9.5 Immature Gran % (Auto) 0.300 Neut % (Auto) 60.5 Lymph % (Auto) 30.4 [place] % (Auto) 6.1 Eos % (Auto) 2.5 Baso % (Auto) 0.2 Absolute Neuts (auto) 5.2 Absolute Lymphs (auto) 2.64 Nucleated RBC % 0 PT INR Sodium 137 Potassium 3.7 Chloride 103 Carbon Dioxide 29.0 Anion Gap 5 BUN 12 Creatinine 0.73 Estim Creat Clear Calc 47.79 Est GFR (MDRD) Af Amer 103 Est GFR (MDRD) Non-Af 85 BUN/Creatinine Ratio 16.5 Glucose 174 H Lactic Acid 2.8 H* Calcium 8.9 Total Bilirubin 0.30 Direct Bilirubin 0.08 AST 15 ALT 22 Alkaline Phosphatase 70 Troponin I < 0.015 Total Protein 7.0 Albumin 3.4 Globulin 3.6 Lipase 29 L Urine Color Urine Clarity Urine pH Ur Specific [place] Urine Protein Urine Glucose (UA) Urine Ketones Urine Occult Blood Urine Nitrite Urine Bilirubin Urine Urobilinogen Ur Leukocyte Esterase Urine RBC Urine WBC Ur Squamous Epith Cells Urine Bacteria Urine Mucus 09/20/20 09/20/20 11:10 11:30 WBC RBC Hgb Hct MCV MCH MCHC RDW Std Deviation RDW Coeff of Jane Plt Count MPV Immature Gran % (Auto) Neut % (Auto) Lymph % (Auto) [place] % (Auto) Eos % (Auto) Baso % (Auto) Absolute Neuts (auto) Absolute Lymphs (auto) Nucleated RBC % PT 18.9 H INR 1.6 Sodium Potassium Chloride Carbon Dioxide Anion Gap BUN Creatinine Estim Creat Clear Calc Est GFR (MDRD) Af Amer Est GFR (MDRD) Non-Af BUN/Creatinine Ratio Glucose Lactic Acid Calcium Total Bilirubin Direct Bilirubin AST ALT Alkaline Phosphatase Troponin I Total Protein Albumin Globulin Lipase Urine Color Straw Urine Clarity Clear Urine pH 7.0 Ur Specific [place] 1.005 Urine Protein Negative Urine Glucose (UA) Normal Urine Ketones Negative Urine Occult Blood Negative Urine Nitrite Negative Urine Bilirubin Negative Urine Urobilinogen Normal Ur Leukocyte Esterase 500 H Urine RBC 0 SEEN Urine WBC 0-5 SEEN Ur Squamous Epith Cells 0 SEEN Urine Bacteria RARE Urine Mucus 0 SEEN - EKG Initial EKG Interpretation: Sinus Rhythm - Sinus at 80 with no acute ischemia. Occasional PACs. - Medical Decision Making Patient was given morphine and Zofran here to help with pain and nausea. Portable chest x-ray reveals chronic changes per my interpretation. Blood work is significant for subtherapeutic INR at 1.6. In light of this and the patient having some increased shortness of breath and occasional chest pain CTA was pursued. This does not reveal evidence of PE. No evidence of infiltrate. Blood work is largely unremarkable. Urine will be sent for culture as patient states she does get frequent UTIs, but no overt sign of infection at this time. Patient will be given a prescription for Zofran. She was advised to take an extra dose of Coumadin tonight to increase her INR. ED Disposition - Plan for ED Patient: Disposition: Home or Assisted Living Diagnosis: Viral syndrome Instructions: ED Viral Syndrome (Adult) Prescriptions: Ondansetron [Zofran Odt] 4 mg PO Q8H PRN PRN #10 tab PRN Reason: Nausea Transmission Status: Pending to [place] [id number] [address] [facility] Referrals: Sukhdeep Matthews DO [Primary Care Provider] - 1 Week if not improving Additional Instructions: As discussed, your INR today is slightly low at 1.6. Double your dose of Coumadin tonight and monitor your INR.
[2020-09-20] MEDS: Morphine 4 MG/ML Syringe IV (11:40)
[2020-09-20] MEDS: Ondansetron 4 MG/2 ML Vial IV (11:40)
[2020-09-20 11:50] LABS: AST(SGOT) 15 U/L (15-37); Alanine Aminotransfer ALT/SGPT 22 U/L (13-56); Albumin, Serum 3.4 g/dL (3.2-5.0); Alkaline Phosphatase 70 U/L (45-117); Anion Gap 5 (5-15); BUN 12 mg/dL (7-18); BUN/Creat Ratio 16.5 RATIO (10-20); Bilirubin, Direct 0.08 mg/dL (0.00-0.30); Calcium,Total 8.9 mg/dL (8.5-10.1); Chloride 103 mmol/L (98-107); Creatinine, Serum 0.73 mg/dL (0.55-1.02); EST Glomerular Filtration Rate 85 mL/min (>60); Est Glom Filt Rate - Afr Amer 103 mL/min (>60); Estimated Creatinine Clearance 47.79 ml/min; Globulin 3.6 g/dL (2.2-4.2); Glucose 174 mg/dL (74-106); Lipase 29 U/L (73-393); Potassium 3.7 mmol/L (3.5-5.1); Sodium Level 137 mmol/L (136-145)
[2020-09-20 11:57] LABS: Lactic Acid 2.8 mmol/L (0.4-1.9)
[2020-09-20 11:58] LABS: Mucous, Urine 0 SEEN /hpf (<or=2+); Red Blood Cells-Urine 0 SEEN /hpf (0-5); Squamous Epithelial Cells - UA 0 SEEN /hpf (5-10)
[2020-09-20 12:00] LABS: International Normalized Ratio 1.6; Prothrombin Time (Protime)PT. 18.9 SECONDS (11.7-14.9)
[2020-09-20 12:07] LABS: Color, Urine Straw (Yellow); Glucose, Dipstick Normal (Normal); Ketone-Dipstick Negative (Negative); Leukocyte Esterase-Dipstick 500 /ul (Negative); Nitrite-Dipstick Negative (Negative); Occult Blood-Urine Negative /ul (Negative); Protein-Dipstick Negative (Negative); Specific Gravity, Urine 1.005 (1.002-1.030); Urine Bilirubin Dipstick Negative (Negative); Urine Clarity Clear (Clear); Urine Urobilinogen Normal (Normal)
[2020-09-20 12:12] LABS: Bacteria RARE /hpf (None Seen); White Blood Cells 0-5 SEEN /hpf (0-5)
--- NOTE | 2020-09-20 12:12 | RAD_ITS ---
STUDY: X-RAY CHEST REASON FOR EXAM: Female, 65 years old. chest pain TECHNIQUE: Single AP portable view of the chest. COMPARISON: None. FINDINGS: The lungs are clear and expanded. There is no demonstrated pleural abnormality. Normal size heart. Normal mediastinum and tessie. Normal visualized pulmonary arteries. Normal visualized aortic arch and descending thoracic aorta. Normal visualized thoracic spine. Normal visualized ribs, clavicles, and shoulders. There is no demonstrated abnormality of the visualized soft tissue structures of the upper abdomen. RAD/Chest 1 View (Portable) IMPRESSION: Normal x-ray examination of the chest. Electronically Signed: Larissa Ibrahim, at 13:18 EST Tel , Service support ,
[2020-09-20 13:12] VITALS: BP 128/96; PULSE 67; RESP 13; O2SAT 100
--- NOTE | 2020-09-20 13:19 | CT_ITS ---
STUDY: CTA CHEST REASON FOR EXAM: Female, 65 years old. SOB, SUBTHERAPEUTIC INR, COUGH, INTERMITTENT LEFT UPPER CHEST PAIN. H/O FACTOR 5 RADIATION DOSAGE (If Supplied By Facility): CTDIvol = ( 11.99 ) mGy, DLP = ( 768.88 ) mGycm TECHNIQUE: The examination was performed with the intravenous administration of IV 100mL [id number]-370. Post-processing of the angiographic images was performed, with multiplanar reformation and 3D reconstruction. Individualized dose optimization techniques were used for this CT. COMPARISON: None. FINDINGS: Normal enhancement of the main pulmonary artery and right and left pulmonary arteries. Normal enhancement of the bilateral peripheral pulmonary arteries. There is no demonstrated pulmonary embolism. Normal thoracic aorta and visualized great vessels. There is no demonstrated aortic dissection. Normal heart and pericardium. Normal mediastinum. Normal hilar regions. Normal visualized trachea and bronchi. The lungs are well expanded. Normal pulmonary parenchyma. Normal pleura. Normal chest wall structures. There are degenerative changes of thoracic spine. Normal visualized upper abdomen. CT/CTA Chest W/WO Contrast IMPRESSION: No demonstrated pulmonary embolism or arterial dissection. Electronically Signed: Larissa Ibrahim, at 14:29 EST Tel , Service support ,
[2020-09-20 15:26] LABS: Reflex Lactate? Y
[2020-09-20 15:27] VITALS: BP 127/74; PULSE 89; RESP 18; O2SAT 98
== END 2020-09-20 15:37 | disposition home or self-care (01) ==
PROVIDERS: Emergency Provider Emergency Medicine; PCP Family Medicine
DX: B34.9 Viral infection, unspecified (principal); R10.10 Upper abdominal pain, unspecified; R11.0 Nausea; I11.0 Hypertensive heart disease with heart failure; I50.9 Heart failure, unspecified; D68.51 Activated protein C resistance; E11.9 Type 2 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 without complications; E78.5 Hyperlipidemia, unspecified; J45.909 Unspecified asthma, uncomplicated; F32.9 Major depressive disorder, single episode, unspecified; F41.9 Anxiety disorder, unspecified; Z79.01 Long term (current) use of anticoagulants; G47.33 Obstructive sleep apnea (adult) (pediatric); Z86.718 Personal history of other venous thrombosis and embolism; Z86.711 Personal history of pulmonary embolism; Z87.440 Personal history of urinary (tract) infections
CPT/HCPCS: 71045; 71275; 80048; 80076; 81001; 83605; 83690; 84484; 85025; 85610; 87040; 87086; 87088; 87186; 87426; 93005; 96361; 96374; 96375; 99284; J7040; Q9967; A4216; J2405

== ENCOUNTER → 2020-10-28 09:59 | Outpatient (CLI) | payer MEDICARE, OTHER, SELFPAY ==
[2020-06-02 05:42] VITALS: BMI 49.6
--- NOTE | 2020-10-28 14:39 | PFTCOMP ---
COMPLETE PULMONARY FUNCTION TEST INTERPRETATION Brief HPI: Patient is a 65 year old female, currently under the care of myself, who presents to [facility] for complete pulmonary function tests secondary to diagnosis of dyspnea. Respiratory therapist reports good effort and reproducible results. Interpretation: Forced expiration spirometry shows no large airways obstructive ventilatory defect with an FEV1 of 71% predicted. There is no significant bronchodilator response by strict ATS criteria. Spirograms are of good quality and plateau normally. The respiratory flow volume loop shows a normal pattern. Lung volumes by body plethysmography show a decreased total lung capacity at 3.76 L, 78% predicted. All other lung volumes are within normal limits. Diffusion capacity by carbon monoxide is decreased at 66% predicted. The airway resistance is normal. No previous pulmonary function tests were available for review. Impression: Mild restrictive ventilatory defect with a disproportionate reduction in diffusing capacity.
== END ==
PROVIDERS: PCP Family Medicine; Referring Provider Internal Medicine Critical Care Medicine; Visit Provider Internal Medicine Critical Care Medicine
DX: R06.00 Dyspnea, unspecified (principal)
CPT/HCPCS: 94060; 94726; 94729

== ENCOUNTER → 2021-01-06 12:58 | Outpatient (CLI) | payer MEDICARE, OTHER, SELFPAY ==
[2020-12-31 11:12] VITALS: BMI 47.5
--- NOTE | 2021-01-06 13:00 | ECHOCS_ITS ---
Reason For Study: DYSPNEA Procedure This was a 2D Doppler, Color Flow transthoracic echocardiogram. The study was technically difficult. Contrast injection was performed. Exam performed in department. Left Ventricle Normal LV size. Left ventricular systolic function is normal. The estimated ejection fraction is 65 %. Diastolic function is indeterminate. No regional wall motion abnormalities noted. Right Ventricle Normal RV size. Normal systolic function. Atria The left atrium is mildly enlarged. Normal right atrium. No doppler evidence for ASD. Mitral Valve There is mild mitral annular calcification. Normal mitral valve. Trivial mitral valve insufficiency. Tricuspid Valve Normal tricuspid valve. Trivial tricuspid valve insufficiency. Right ventricular systolic pressure estimated to be 43 mmHg. Aortic Valve Trisinus/trileaflet aortic valve. Normal aortic valve. Trivial aortic valve insufficiency. Pulmonic Valve The pulmonic valve is not well visualized. Great Vessels Normal sized aortic root. Pericardium/Pleural No pericardial effusion. Medication 22 gauge I.V. with prn adaptor inserted into left arm. Diluted definity 3ml given slow IV push to enhance endocardial definition. MMode/2D Measurements & Calculations LVIDd: 4.8 cm IVSd: 0.97 cm Ao root diam: 3.5 cm LVIDs: 3.2 cm LVPWd: 0.98 cm RVDd: 4.2 cm FS: 33.6 % LAV(MOD-bp): 61.5 ml LA A4 area: 19.8 cm2 LA dimension(2D): 3.7 cm LAV(MOD-bp) Indexed: 27.4 ml/m2 LAV(MOD-sp2): 76.6 ml LAV(MOD-sp4): 49.9 ml RA A4 area: 12.9 cm2 Time Measurements MV dec time: 0.19 sec Doppler Measurements & Calculations MV E max josiah: 106.9 cm/sec Lat Peak E' Josiah: 9.3 cm/sec Med Peak E' Josiah: 7.2 cm/sec MV A max josiah: 72.9 cm/sec E/E' lat: 11.5 E/E' med: 14.9 MV E/A: 1.5 Ao V2 max: 139.5 cm/sec LV V1 max: 127.8 cm/sec TR max josiah: 317.7 cm/sec Ao max P.8 mmHg LV V1 max P.5 mmHg TR max P.4 mmHg ECHO/Echo Complete W/ Contrast Interpretation Summary The study was technically difficult. Contrast injection was performed. Left ventricular systolic function is normal. The estimated ejection fraction is 65 %. The left atrium is mildly enlarged. There is mild mitral annular calcification. Trivial mitral valve insufficiency. Trivial tricuspid valve insufficiency. Trivial aortic valve insufficiency. Right ventricular systolic pressure estimated to be 43 mmHg. Diastolic function is indeterminate. Ordering Physician: Mary Rowe Referring Physician: ELISSA DIAL Performed By: Karishma Chang, ADAN, RVT
== END ==
PROVIDERS: PCP Family Medicine; Visit Provider Nurse Practitioner Acute Care
DX: R06.00 Dyspnea, unspecified (principal); R06.02 Shortness of breath
CPT/HCPCS: 93306; Q9957; A4216; C8929

== ENCOUNTER → 2021-01-25 11:10 | Outpatient (CLI) | payer MEDICARE, OTHER, SELFPAY ==
[2020-12-31 11:12] VITALS: BMI 47.5
[2021-01-25 11:38] VITALS: PULSE 102; PULSE 103; PULSE 109; PULSE 110; PULSE 113; PULSE 86; PULSE 99; O2SAT 95; O2SAT 96; O2SAT 98
--- NOTE | 2021-01-27 09:37 | WT_ITS ---
PSN 6 Minute Walk Test 6 Minute Walk Test 6 Minute Walk Test: 6 Minute Walk Test PSN:6-Minute Walk Test Start: 01/25/21 11:38 Freq: Status: Active Protocol: [id number] Document 01/25/21 11:38 EW (Rec: 01/25/21 11:42 EW [id number]) 6 Minute Walk Test Date Performed 01/25/21 Time Performed 11:15 Height 5 ft 4 in Weight: 275 lb Weight in Pounds 275.[address]: Mary Rowe [employer] Pre-test Oxygen Delivery Method Room Air Pulse Ox (%) 95 Pulse Rate (60-100 beats/min) 86 Dyspnea Von Scale (0-10) 2 Exertion Von Scale (6-20) 8 1st minute Oxygen Delivery Method Room Air Pulse Ox (%) 96 Pulse Rate (60-100 beats/min) 99 2nd minute Oxygen Delivery Method Room Air Pulse Ox (%) 95 Pulse Rate (60-100 beats/min) 113 H Number of Rests Taken 1 Reported Symptoms Increased Work of Breathing 3rd minute Oxygen Delivery Method Room Air Pulse Ox (%) 96 Pulse Rate (60-100 beats/min) 110 H Reported Symptoms Increased Work of Breathing 4th minute Oxygen Delivery Method Room Air Pulse Ox (%) 96 Pulse Rate (60-100 beats/min) 109 H Reported Symptoms Increased Work of Breathing 5th minute Oxygen Delivery Method Room Air Pulse Ox (%) 96 Pulse Rate (60-100 beats/min) 102 H Reported Symptoms Increased Work of Breathing 6th minute Oxygen Delivery Method Room Air Pulse Ox (%) 96 Pulse Rate (60-100 beats/min) 109 H Post-test Oxygen Delivery Method Room Air Pulse Ox (%) 98 Pulse Rate (60-100 beats/min) 103 H Dyspnea Von Scale (0-10) 5 Exertion Von Scale (6-20) 14 Reported Symptoms Increased Work of Breathing Full Laps Walked 7 Partial Lap, Number of Tiles Walked 0 Total Distance Walked (ft) 413 Interpretation Interpretation: The patient ambulated 413 feet over the course of 6 minutes beginning on room air without assistive devices. Pretesting oxygen saturation was noted to be 95% on room air. With ambulation, the leo oxygen saturation was 95%. Although there was evidence of impaired walk distance, there was no significant exertional oxygen desaturation. Recommendations Recommendations: There is no indication for the use of supplemental oxygen at this time.
== END ==
PROVIDERS: PCP Family Medicine; Referring Provider Nurse Practitioner Acute Care; Visit Provider Nurse Practitioner Acute Care
DX: R06.00 Dyspnea, unspecified (principal)
CPT/HCPCS: 94618

== ENCOUNTER → 2021-02-16 11:13 | Outpatient (CLI) | payer MEDICARE, OTHER, SELFPAY ==
[2021-02-16 07:45] VITALS: BMI 48.7
[2021-02-16 11:51] LABS: Rheumatoid Factor < 10.0 IU/mL (<15)
[2021-02-17 17:49] LABS: ANTINUCLEAR ANTIBODIES DIRECT Negative (Negative)
[2021-02-18 03:07] LABS: Cytoplasmic Ab (C-ANCA) <1:20 titer (Neg:<1:20)
[2021-02-18 08:22] LABS: CCP IgG Antibodies 2 units (0-19); Perinuclear Ab (P-ANCA) <1:20 titer (Neg:<1:20)
== END ==
PROVIDERS: PCP Family Medicine; Referring Provider Nurse Practitioner Acute Care; Visit Provider Nurse Practitioner Acute Care
DX: R06.00 Dyspnea, unspecified (principal)
CPT/HCPCS: 36415; 86038; 86200; 86225; 86235; 86256; 86431

== ENCOUNTER 2021-09-16 08:22 | Outpatient (CLI) | payer MEDICARE, OTHER, SELFPAY ==
[2021-09-16 08:38] VITALS: BP 126/67; PULSE 66; RESP 16; TEMP 36.9; O2SAT 97; BMI 45.6
[2021-09-16] MEDS: 0.9% Saline Lock 10 ML Syringe IV (08:38)
[2021-09-16 09:44] VITALS: BP 153/61; PULSE 58; RESP 18; TEMP 36.8; O2SAT 98
[2021-09-16 10:41] VITALS: BP 123/60; PULSE 63; RESP 18; TEMP 37; O2SAT 99
== END 2021-09-16 10:52 | disposition home or self-care (01) ==
LOC: MS3OUT 08:22 → MS3 08:23
PROVIDERS: PCP Family Medicine; Referring Provider Nurse Practitioner Acute Care; Visit Provider Nurse Practitioner Acute Care
DX: Z23 Encounter for immunization (principal); U07.1 COVID-19; E11.9 Type 2 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 without complications; G47.33 Obstructive sleep apnea (adult) (pediatric)
CPT/HCPCS: J7050; M0245; Q0245; A4216

== ENCOUNTER 2021-10-23 10:15 | Emergency (ER) | payer MEDICARE, OTHER, SELFPAY ==
[2021-10-23 10:16] VITALS: PULSE 103; RESP 18; TEMP 36.2; O2SAT 97; BMI 46.3
[2021-10-23 10:17] VITALS: BP 144/66
[2021-10-23 10:22] VITALS: BP 146/71; PULSE 100; RESP 21; TEMP 36.7
--- NOTE | 2021-10-23 10:37 | EDS_ITS ---
HPI HPI - GI History of Present Illness Chief Complaint: Nausea/Vomiting/Diarrhea Informant: patient Abdominal Pain/Flank Pain Onset: Days (5) Context: Gradual Onset Timing: Intermittent and Lasts (brief, less than 20 min) Quality: Aching Location: Diffuse Current Severity: Gone Maximum Severity: Mild Worsened by: Nothing Relieved by: Nothing Nausea/Vomiting/Emesis GI Symptom: Positive for Nausea and Vomiting Onset: Days (5) Quality: Positive for Nonbilious; Negative for Blood streaks, Coffee ground and Hematemesis Severity: Moderate Diarrhea/Melena/Hematochezia GI Symptom: Positive for Diarrhea and Hematochezia; Negative for Melena Onset: Days (5) Stool Quality: Positive for Watery (w/ blood mixed in) Severity: Severe (more than 10 episodes/24h) Associated Symptoms Associated Symptoms: Negative for Dysuria, Frequency, Hematuria and Urgency Narrative Narrative: 66-year-old female presenting with vomiting diarrhea low-grade fevers off and on. Daughter became ill at the same time she did about 5 days ago with similar symptoms but not nearly to the same severity as this patient. Intermittent mild diffuse abdominal discomfort that she has a hard time describing, sometimes she feels it in both sides of her back, it is not currently there. She is on warfarin because of history of pulmonary emboli factor V Leiden, and she has had bloody diarrhea off and on throughout this. No blood in her emesis. No syncope but she feels very malaised and weak. She is still able to get around. Chronic dyspnea with exertion that is worse. She had Covid in August, she was treated with monoclonal antibodies, she does not think she has any residual symptoms that started with Covid. She has a history of chronically recurrent urinary tract infections for which she is on Keflex 1 caplet daily, and her doctor believes she has a urinary tract infection currently, put her on Macrobid that started 3 days ago, after her vomiting and diarrhea had already begun. She denies any recent travel out of the area. She states her daughter, who has symptoms, as well as the daughter's son and her fianc? have all moved in with her, and 2 weeks ago her fianc? suddenly at work for reasons that are not yet known and the patient states I suspect he had Covid. [facility] Medical History Anxiety and depression Asthma Chronic diastolic heart failure Congestive heart failure COVID-19 Encounter for screening for COVID-19 Essential hypertension GERD (gastroesophageal reflux disease) IBS (irritable bowel syndrome) Premature atrial contraction Premature ventricular contraction SVT (supraventricular tachycardia) Type 2 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 Home Medications fenofibrate 160 mg PO QHS 02/09/14 [History Last Taken 12/20/17 19:00] hydrochlorothiazide 25 mg PO DAILY 02/09/14 [History Last Taken 12/21/17 09:00] lansoprazole 30 mg PO DAILY 02/09/14 [History Last Taken 12/21/17 09:00] metformin 1,000 mg PO BIDCM 02/09/14 [History Last Taken 12/21/17 09:00] ropinirole 1 - 3 mg PO QHS 02/09/14 [History Last Taken 12/20/17 23:00] tramadol 50 mg PO Q6H PRN PRN #8 tab 04/09/14 [Rx Last Taken Unknown] sertraline 200 mg PO DAILY 11/30/16 [History Last Taken 12/20/17 09:00] albuterol sulfate 90 mcg/actuation aerosol inhaler 2 puff INHALATION Q6H PRN 05/28/19 [History Last Taken Unknown] fesoterodine 4 mg tablet,extended release 24 hr 4 mg PO DAILY 05/28/19 [History Last Taken Unknown] meclizine 25 mg tablet 25 mg PO TID PRN 05/28/19 [History Last Taken Unknown] albuterol sulfate 0.63 mg/3 mL solution for nebulization 0.63 mg INHALATION Q6H PRN 06/08/20 [History Last Taken Unknown] fluticasone 250 mcg-salmeterol 50 mcg/dose blistr powdr for inhalation 1 inh INHALATION BID PRN 06/08/20 [History Last Taken Unknown] diltiazem HCl 180 mg capsule,extended release 24 hr 180 mg PO DAILY 03/29/21 [History Last Taken Unknown] docusate sodium 100 mg capsule 100 mg PO DAILY PRN 03/29/21 [History Last Taken Unknown] fluticasone 250 mcg-salmeterol 50 mcg/dose blistr powdr for inhalation 1 inh INHALATION BID 03/29/21 [History Last Taken Unknown] gabapentin 100 mg capsule 100 mg PO TID 03/29/21 [History Last Taken Unknown] warfarin 1 mg tablet 1 mg PO DAILY 03/29/21 [History Last Taken Unknown] warfarin 2 mg tablet 2 mg PO DAILY 03/29/21 [History Last Taken Unknown] warfarin 5 mg tablet 5 mg PO DAILY 03/29/21 [History Last Taken Unknown] furosemide 20 mg tablet 20 mg PO DAILY PRN 05/26/21 [History Last Taken Unknown] losartan 100 mg tablet 50 mg PO DAILY tab 05/26/21 [History Last Taken Unknown] glipizide 10 mg tablet 10 mg PO BID tab 08/24/21 [History Last Taken Unknown] nystatin 100,000 unit/gram topical cream 1 applic TOPICAL BID 7 Days #15 g 08/24/21 [Rx Last Taken Unknown] triamcinolone acetonide 0.5 % topical cream 1 applic TOPICAL BID 7 Days #15 g 08/24/21 [Rx Last Taken Unknown] dexamethasone 4 mg tablet 4 mg PO DAILY #5 tab 09/14/21 [Rx Last Taken Unknown] promethazine 25 mg PO Q6H PRN PRN #10 tablet 10/23/21 [Rx Last Taken Unknown] Allergy/AdvReac Type Severity Reaction Status Date / Time KENYA Inhibitors Allergy cough Verified 10/23/21 10:17 clindamycin Allergy Hives Verified 10/23/21 10:17 liraglutide [From Victoza] Allergy lump in Verified 10/23/21 10:17 throat metoprolol Allergy unk Verified 10/23/21 10:17 propoxyphene napsylate Allergy Unknown Verified 10/23/21 10:17 [From Darvocet-N 100] repaglinide AdvReac Severe Back Pain, Verified 10/23/21 10:17 PULIDO, Nausea Family History Father Diabetes Heart disease Mother CVA (cerebral vascular accident) Alzheimer disease Sister Cancer throat, mouth Surgical History History of cholecystectomy History of hip replacement History of laparoscopic-assisted vaginal hysterectomy Hx of appendectomy Social History Smoking Status: Never smoker alcohol intake: never substance use type: does not use caffeine: Yes what type of physical activity do you participate in: none seatbelt use: always do you feel safe at home: Yes additional social history: [place]- Retired from [employer] ED Constitutional Constitutional ED: Reports fatigue, fever(s) and malaise; Denies body ache(s) or headache(s) Eyes Eyes: Denies change in vision or diplopia ENT ENT ED: Denies rhinorrhea or sore throat Cardiovascular Cardiovascular: Denies chest pain, orthopnea or palpitations Respiratory/Chest Respiratory/Chest: Reports cough and dyspnea on exertion; Denies dyspnea or orthopnea Gastrointestinal Gastrointestinal: Reports as per HPI, abdominal pain, diarrhea, hematochezia, nausea and vomiting; Denies hematemesis Genitourinary Genitourinary ED: Denies dysuria or hematuria Musculoskeletal Musculoskeletal: Reports other Details: sometimes low back pain ; Denies neck pain Integumentary Denies abscess or rash Neurologic Neurologic: Denies headache(s), paresthesias or weakness Psychiatric Psychiatric: Denies anxiety or suicidal thoughts EXAM Physical Exam Const Vital Signs: 10/23/21 10:16 10/23/21 10:17 10/23/21 10:22 Temperature 97.1 F L 98.1 F Temperature Source Temporal Temporal Pulse Rate 103 H 100 Respiratory Rate 18 21 H Blood Pressure 144/66 H 146/71 H Blood Pressure Mean 92 96 Pulse Ox 97 Oxygen Delivery Method Room Air Room Air 10/23/21 12:15 10/23/21 14:17 10/23/21 16:41 Temperature Temperature Source Pulse Rate 81 75 87 Respiratory Rate 25 H 16 Blood Pressure 129/70 H 122/60 H 118/74 Blood Pressure Mean 89 80 Pulse Ox 95 98 Oxygen Delivery Method Room Air Positive well nourished, well developed and obese Constitutional Narrative: Malaised-appearing, no distress General Appearance ED: well developed and NAD Nutritional Appearance: obese HEENT Reports moist mucous membranes normocephalic and atraumatic Eyes PERRL and EOMs intact bilaterally Neck full ROM and supple Resp normal respiratory effort and clear to auscultation bilaterally Cardio regular rate, regular rhythm, no murmurs and peripheral pulses 2+ throughout Rate: Negative for tachycardic GI non-tender and non-distended Auscultation: normoactive bowel sounds Palpation: soft Back/Spine no CVA tenderness General Back: other FROM Extremity normal to inspection and no calf tenderness General Extremety ED: Negative for edema, pulses abnormal or tenderness General Extremity: Negative for edema or pulses abnormal Neuro oriented x3, CN's II-XII intact bilaterally and no sensory deficits noted Sensorium / Orientation: awake and alert Motor Exam: strength 5/5 throughout Skin no rashes or lesions noted and no wounds MDM MDM MDM Narrative Medical decision making narrative: Other than mild hypokalemia and mild hyperglycemia her labs are unremarkable, her INR is 1.9. Her hemoglobin is 11.8, however this is higher than she normally is. She was treated with Zofran, IV fluids, she was feeling better and tolerating oral fluids and some crackers. She is not having any active bleeding, when she had diarrhea here that we were able to send a sample of, it was not grossly bloody. We did wait until C. difficile and enteric bacterial panel testing returned, both of which were negative. This makes it much more likely she is dealing with viral etiology, and the bleeding is either likely to irritation and the fact that she is anticoagulated, or as the patient put it, hemorrhoids which she has a history of. She does not have any symptomatic external hemorrhoids. At this time I feel she can safely be discharged home continuing to treat her symptoms, and returning for significant worsening or major bleeding she is comfortable with the plan will follow up after the weekend. I did advise her to continue the warfarin since she is not acutely anemic, and she is not having any large amounts of GI bleeding, and at this time I believe the benefits outweigh the risks. I discussed all this with her and the fact that if this changes she may seek reevaluation here. Lab Data Attestation: I reviewed the patient's lab results. Labs: Laboratory Results - last 24 hr 10/23/21 10/23/21 10/23/21 11:15 11:15 11:15 WBC 8.6 RBC 4.69 Hgb 11.8 L Hct 38.2 MCV 81.4 MCH 25.2 L MCHC 30.9 L RDW Std Deviation 49.4 H RDW Coeff of Jane 17.0 H Plt Count 400 MPV 9.5 Immature Gran % (Auto) 0.500 Neut % (Auto) 78.6 H Lymph % (Auto) 13.4 L Dickens % (Auto) 6.6 Eos % (Auto) 0.7 Baso % (Auto) 0.2 Absolute Neuts (auto) 6.8 Absolute Lymphs (auto) 1.15 Nucleated RBC % 0 PT 20.9 H INR 1.9 Sodium 139 Potassium 3.3 L Chloride 109 H Carbon Dioxide 23.0 Anion Gap 7 BUN 8 Creatinine 0.67 Estim Creat Clear Calc 47.14 Est GFR (MDRD) Af Amer 113 Est GFR (MDRD) Non-Af 93 BUN/Creatinine Ratio 11.9 Glucose 237 H Calcium 8.6 Total Bilirubin 0.30 AST 14 L ALT 25 Alkaline Phosphatase 64 Total Protein 6.1 L Albumin 2.8 L Globulin 3.3 Albumin/Globulin Ratio 0.8 L Discharge Plan Triage Chief Complaint: Nausea/Vomiting/Diarrhea ED Provider: Frankie Stout Dx/Rx/DC Orders Clinical Impression: Viral gastroenteritis, Hematochezia, Warfarin-induced coagulopathy Instructions: ED Gastroenteritis, Viral (Adult) Prescriptions: New promethazine [promethazine] 25 MG tablet 25 mg PO Q6H PRN PRN (Reason: Nausea) Qty: 10 RF: 0 No Action meclizine 25 mg tablet 25 mg PO TID PRN (Reason: Dizziness) RF: 0 albuterol sulfate [Ventolin HFA] 90 mcg/actuation HFA aerosol inhaler 2 puff INHALATION Q6H PRN (Reason: Wheezing) RF: 0 Toviaz 4 mg tablet extended release 24 hr 4 mg PO DAILY RF: 0 fluticasone propion-salmeterol [Advair Diskus] 250-50 mcg/dose blister with device 1 inh INHALATION BID PRN (Reason: Sob &/Or Wheezing) RF: 0 albuterol sulfate 0.63 mg/3 mL solution for nebulization 0.63 mg INHALATION Q6H PRN (Reason: Sob &/Or Wheezing) RF: 0 nystatin 100,000 unit/gram cream 1 applic topical BID 7 Days Qty: 15 RF: 2 triamcinolone acetonide 0.5 % cream 1 applic topical BID 7 Days Qty: 15 RF: 2 diltiazem HCl 180 mg capsule,extended release 24hr 180 mg PO DAILY RF: 0 fluticasone propion-salmeterol [Wixela Inhub] 250-50 mcg/dose blister with device 1 inh inhalation BID RF: 0 warfarin 2 mg tablet 2 mg PO DAILY RF: 0 warfarin 5 mg tablet 5 mg PO DAILY RF: 0 docusate sodium [Colace] 100 mg capsule 100 mg PO DAILY PRN (Reason: Constipation) RF: 0 gabapentin 100 mg capsule 100 mg PO TID RF: 0 warfarin 1 mg tablet 1 mg PO DAILY RF: 0 losartan 100 mg tablet 50 mg PO DAILY RF: 0 glipizide 10 mg tablet 10 mg PO BID RF: 0 dexamethasone [Decadron] 4 mg tablet 4 mg PO DAILY Qty: 5 RF: 0 ropinirole 3 MG tablet 1 - 3 mg PO QHS RF: 0 metformin 1,000 MG tablet 1,000 mg PO BIDCM RF: 0 lansoprazole 30 MG capsule 30 mg PO DAILY RF: 0 hydrochlorothiazide 25 MG tablet 25 mg PO DAILY RF: 0 fenofibrate 160 MG tablet 160 mg PO QHS RF: 0 tramadol 50 MG tablet 50 mg PO Q6H PRN PRN (Reason: Pain) Qty: 8 RF: 0 sertraline 100 MG tablet 200 mg PO DAILY RF: 0 furosemide 20 mg tablet 20 mg PO DAILY PRN (Reason: Swelling) RF: 0 Primary Care Provider: Sukhdeep Matthews Referrals: Sukhdeep Matthews DO [Primary Care Provider] - 1-2 Days if not improving Disposition Disposition: Home, Self Care Discharge Date/Time: 10/23/21 16:58
[2021-10-23] MEDS: Ondansetron 4 MG/2 ML Vial IV (11:18)
[2021-10-23 11:29] LABS: Absolute Lymphocyte Count 1.15 X10^3/uL (0.83-4.51); Absolute Neutrophil Count 6.8 X10^3/uL (2.0-7.7); Basophil# 0.02 X10^3/uL; Basophil% 0.2 % (0-1); Eosinophil# 0.06 X10^3/uL; Eosinophils% 0.7 % (0-5); Hematocrit 38.2 % (37-47); Hemoglobin 11.8 g/dL (12.0-15.0); Lymphocyte # 1.15 X10^3/ul (0.83-4.51); Lymphocyte % 13.4 % (19-41); Mean Corp Hgb Conc 30.9 g/dL (32-36); Mean Corpuscular Hgb 25.2 pg (27.0-32.0); Mean Corpuscular Volume 81.4 fL (81-99); Mean Platelet Vol. 9.5 fl (6.2-12.0); Monocyte# 0.57 X10^3/uL; Monocyte% 6.6 % (0-10); NRBC Flagged by Analyzer 0 % (0-5); Neutrophil # 6.77 X10^3/uL (2.7-7.7); Neutrophil % 78.6 % (47-70); Platelet Count 400 K/mm3 (150-450); RBC Distribution Width SD 49.4 fl (35.1-43.9); Red Blood Count 4.69 M/mm3 (4.2-5.4); White Blood Count 8.6 K/mm3 (4.4-11.0)
[2021-10-23] MEDS: 0.9% Normal Saline 1,000 ML 200 ML IV (11:30)
[2021-10-23 11:34] LABS: International Normalized Ratio 1.9; Prothrombin Time (Protime)PT. 20.9 SECONDS (11.7-14.9)
[2021-10-23 12:03] LABS: ALB/GLOB Ratio 0.8 RATIO (0.9-2.4); AST(SGOT) 14 U/L (15-37); Alanine Aminotransfer ALT/SGPT 25 U/L (13-56); Albumin, Serum 2.8 g/dL (3.2-5.0); Alkaline Phosphatase 64 U/L (45-117); Anion Gap 7 (5-15); BUN 8 mg/dL (7-18); BUN/Creat Ratio 11.9 RATIO (10-20); Calcium,Total 8.6 mg/dL (8.5-10.1); Chloride 109 mmol/L (98-107); Creatinine, Serum 0.67 mg/dL (0.55-1.02); EST Glomerular Filtration Rate 93 mL/min (>60); Est Glom Filt Rate - Afr Amer 113 mL/min (>60); Estimated Creatinine Clearance 47.14 ml/min; Globulin 3.3 g/dL (2.2-4.2); Glucose 237 mg/dL (74-106); Potassium 3.3 mmol/L (3.5-5.1); Protein, Total 6.1 g/dL (6.4-8.2); Sodium Level 139 mmol/L (136-145)
[2021-10-23 12:15] VITALS: BP 129/70; PULSE 81
[2021-10-23] MEDS: Potassium Chloride Oral Tablet 20 MEQ 40 MEQ PO (12:30)
[2021-10-23] MEDS: Potassium Chloride 10mEq/100mL 10 MEQ/100 ML IV.SOLN. 100 MEQ IV BOLUS (12:30)
[2021-10-23 14:17] VITALS: BP 122/60; PULSE 75; RESP 25; O2SAT 95
[2021-10-23] MEDS: Acetaminophen 325 MG Tablet 650 MG PO (15:14)
[2021-10-23 16:41] VITALS: BP 118/74; PULSE 87; RESP 16; O2SAT 98
== END 2021-10-23 16:58 | disposition home or self-care (01) ==
PROVIDERS: Emergency Provider Emergency Medicine; PCP Family Medicine; Visit Provider Emergency Medicine
DX: A08.4 Viral intestinal infection, unspecified (principal); I11.0 Hypertensive heart disease with heart failure; I50.32 Chronic diastolic (congestive) heart failure; E11.65 Type 2 diabetes mellitus with hyperglycemia; D68.32 Hemorrhagic disorder due to extrinsic circulating anticoagulants; D68.51 Activated protein C resistance; T45.515A Adverse effect of anticoagulants, initial encounter; K92.1 Melena; K64.9 Unspecified hemorrhoids; Z79.01 Long term (current) use of anticoagulants; E87.6 Hypokalemia; R10.84 Generalized abdominal pain; Z86.711 Personal history of pulmonary embolism; Z86.16 Personal history of COVID-19; F32.9 Major depressive disorder, single episode, unspecified; F41.9 Anxiety disorder, unspecified; J45.909 Unspecified asthma, uncomplicated; Z79.84 Long term (current) use of oral hypoglycemic drugs; Z79.899 Other long term (current) drug therapy; E66.9 Obesity, unspecified; Z20.822 Contact with and (suspected) exposure to COVID-19; R19.7 Diarrhea, unspecified
CPT/HCPCS: 80053; 85025; 85610; 87426; 87493; 87506; 96361; 96365; 96375; 99285; J7030; A4216; J2405

== ENCOUNTER → 2022-01-31 | Outpatient (CLI) | payer MEDICARE, OTHER, SELFPAY ==
--- NOTE | 2022-01-31 08:12 | VDLE_ITS ---
Reason For Study: pain RIGHT GSV is normal. CFV is compressible, spontaneous, phasic, competent and demonstrates normal augmentation. FV is compressible, spontaneous, phasic, competent and demonstrates normal augmentation. POP V is compressible, spontaneous, phasic, competent and demonstrates normal augmentation. T/P Trunk is compressible. PTV is compressible. RT PerV is compressible. Procedure This is a venous duplex using B-mode, color flow and spectral Doppler. Exam performed in department. The exam was abbreviated due to the COVID 19 protocol. The exam was diagnostic. A preliminary report was called and/or faxed to Dr. Matthews. VL/Venous Duplex US, Unilateral Interpretation Summary Deep veins of the right lower extremity are patent and compressible segmentally . There is no evidence of right lower extremity deep vein thrombosis. Valvular competence robert ears intact within the proximal deep venous system on the right . The right great saphenous vein a ppears patent and compressible segmentally. Ordering Physician: Sukhdeep Matthews Performed By: Itz Milner RVT
== END | disposition home or self-care (01) ==
LOC: CVS 07:58
PROVIDERS: PCP Family Medicine; Referring Provider Family Medicine; Visit Provider Family Medicine
DX: M79.661 Pain in right lower leg (principal)
CPT/HCPCS: 93971

== ENCOUNTER → 2022-05-05 | Outpatient (CLI) | payer MEDICARE, OTHER, SELFPAY ==
[2022-05-05 17:51] LABS: Magnesium 1.6 mg/dL (1.6-2.6); Potassium 3.4 mmol/L (3.5-5.1)
== END | disposition home or self-care (01) ==
LOC: MTLAB 15:38
PROVIDERS: PCP Family Medicine; Referring Provider Surgery; Visit Provider Surgery
DX: E87.6 Hypokalemia (principal)
CPT/HCPCS: 36415; 83735; 84132

== ENCOUNTER → 2022-06-20 | Outpatient (CLI) | payer MEDICARE, OTHER, SELFPAY ==
[2022-06-20 15:34] LABS: Magnesium 1.7 mg/dL (1.6-2.6); Potassium 3.8 mmol/L (3.5-5.1)
== END | disposition home or self-care (01) ==
LOC: MTLAB 06-21 07:40
PROVIDERS: PCP Family Medicine; Referring Provider Physician Assistant; Visit Provider Physician Assistant
DX: N39.0 Urinary tract infection, site not specified (principal); E87.6 Hypokalemia; E83.42 Hypomagnesemia
CPT/HCPCS: 36415; 81002; 83735; 84132; 87086

== ENCOUNTER → 2022-06-21 | Outpatient (CLI) | payer MEDICARE, OTHER, SELFPAY ==
[2022-06-21 15:12] LABS: Color, Urine Yellow (Yellow); Glucose, Dipstick Normal (Normal); Ketone-Dipstick Negative (Negative); Leukocyte Esterase-Dipstick 500 /ul (Negative); Nitrite-Dipstick Negative (Negative); Occult Blood-Urine 10 /ul (Negative); Protein-Dipstick 15 mg/dl (Negative); Urine Bilirubin Dipstick Negative (Negative); Urine Clarity Clear (Clear); Urine Urobilinogen Normal (Normal)
== END | disposition home or self-care (01) ==
PROVIDERS: PCP Family Medicine; Visit Provider Family Medicine
DX: N39.0 Urinary tract infection, site not specified (principal)
CPT/HCPCS: 81002; 87077; 87086; 87088; 87186

== ENCOUNTER → 2022-08-16 | Outpatient (CLI) | payer MEDICARE, OTHER, SELFPAY | END | disposition home or self-care (01) | LOC: LABSPEC 12:48 | PROVIDERS: PCP Family Medicine; Visit Provider Family Medicine | DX: R19.7 Diarrhea, unspecified (principal) | CPT/HCPCS: 87493 ==

== ENCOUNTER 2022-09-29 18:57 | Emergency (ER) | payer MEDICARE, OTHER, SELFPAY ==
[2022-09-29 18:58] VITALS: BP 148/78; PULSE 78; RESP 16; TEMP 36.6; O2SAT 99; BMI 40.3
== END 2022-09-29 20:10 | disposition left against medical advice (07) ==
LOC: ED 22:28
PROVIDERS: PCP Family Medicine
DX: R21 Rash and other nonspecific skin eruption (principal); Z53.21 Procedure and treatment not carried out due to patient leaving prior to being seen by health care provider

== ENCOUNTER → 2022-11-02 | Outpatient (CLI) | payer MEDICARE, OTHER, SELFPAY ==
[2022-11-02 15:15] LABS: Absolute Lymphocyte Count 1.85 X10^3/uL (0.83-4.51); Absolute Neutrophil Count 4.4 X10^3/uL (2.0-7.7); Basophil# 0.02 X10^3/uL; Basophil% 0.3 % (0-1); Eosinophil# 0.32 X10^3/uL; Eosinophils% 4.6 % (0-5); Hematocrit 37.6 % (37-47); Hemoglobin 11.8 g/dL (12.0-15.0); Lymphocyte # 1.85 X10^3/ul (0.83-4.51); Lymphocyte % 26.4 % (19-41); Mean Corp Hgb Conc 31.4 g/dL (32-36); Mean Corpuscular Hgb 27.6 pg (27.0-32.0); Mean Corpuscular Volume 88.1 fL (81-99); Mean Platelet Vol. 9.5 fl (6.2-12.0); Monocyte# 0.36 X10^3/uL; Monocyte% 5.1 % (0-10); NRBC Flagged by Analyzer 0 % (0-5); Neutrophil # 4.44 X10^3/uL (2.7-7.7); Neutrophil % 63.3 % (47-70); Platelet Count 411 K/mm3 (150-450); RBC Distribution Width CV 15.9 % (11.6-14.6); Red Blood Count 4.27 M/mm3 (4.2-5.4)
[2022-11-02 15:33] LABS: Hemoglobin A1c 5.8 % (3.8-5.6)
[2022-11-02 15:34] LABS: ALB/GLOB Ratio 0.8 RATIO (0.9-2.4); AST(SGOT) 14 U/L (15-37); Alanine Aminotransfer ALT/SGPT 20 U/L (13-56); Albumin, Serum 3.4 g/dL (3.2-5.0); Alkaline Phosphatase 99 U/L (45-117); Anion Gap 7 (5-15); BUN 16 mg/dL (7-18); BUN/Creat Ratio 18.5 RATIO (10-20); Calcium,Total 9.7 mg/dL (8.5-10.1); Chloride 106 mmol/L (98-107); Creatinine, Serum 0.86 mg/dL (0.55-1.02); EST Glomerular Filtration Rate 69 mL/min (>60); Est Glom Filt Rate - Afr Amer 84 mL/min (>60); Globulin 4.2 g/dL (2.2-4.2); Glucose 68 mg/dL (74-106); Potassium 4.5 mmol/L (3.5-5.1); Protein, Total 7.6 g/dL (6.4-8.2); Sodium Level 142 mmol/L (136-145)
[2022-11-02 21:31] LABS: Xtra Tube EP Lab EXTRA TUBE
== END | disposition home or self-care (01) ==
LOC: BFHLAB 13:29
PROVIDERS: PCP Family Medicine; Visit Provider Family Medicine
DX: E11.9 Type 2 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 without complications (principal); Z51.81 Encounter for therapeutic drug level monitoring
CPT/HCPCS: 36415; 80053; 83036; 85025

== ENCOUNTER → 2022-11-14 | Outpatient (CLI) | payer MEDICARE, OTHER, SELFPAY ==
[2022-11-16 15:08] LABS: Endomysial Antibody IgA Negative (Negative)
[2022-11-16 22:50] LABS: Immunoglobulin A 289 mg/dL (87-352); t-Transglutaminase IgA <2 U/mL (0-3)
== END | disposition home or self-care (01) ==
LOC: MTLAB 14:29
PROVIDERS: PCP Family Medicine; Referring Provider Internal Medicine Gastroenterology; Visit Provider Internal Medicine Gastroenterology
DX: R19.7 Diarrhea, unspecified (principal)
CPT/HCPCS: 36415; 82784; 83516; 86140; 86255

== ENCOUNTER → 2022-11-22 | Outpatient (CLI) | payer MEDICARE, OTHER, SELFPAY ==
--- NOTE | 2022-11-22 16:46 | MRI_ITS ---
EXAM: MR HEAD WITHOUT AND WITH INTRAVENOUS CONTRAST CLINICAL INDICATION: RECENT HEAD TRAUMA TECHNIQUE: Multiplanar and multisequence MR images of the brain were obtained without and with intravenous contrast. Magnetic field strength 1.5 T. This report was created using [employer] report Wildfire technology. CONTRAST: 20 cc Clariscan IV. COMPARISON: MRA brain 01/01/2012. FINDINGS: BRAIN AND EXTRA-AXIAL SPACES: Unremarkable. No intra- or extra-axial hemorrhage. No evidence of acute infarct. No intracranial mass or mass effect. There is preservation of the hathaway/white matter interface. Posterior fossa structures are unremarkable. Ventricles are appropriate for age. No hydrocephalus. Basal cisterns are patent. SELLA: Unremarkable. Normal sella turcica, pituitary gland, infundibular stalk, optic chiasm and hypothalamus. AUDITORY SYSTEM: Unremarkable. The internal auditory canals are patent. BONES/JOINTS: Unremarkable. No discrete lytic or blastic abnormalities. SINUSES: Unremarkable as visualized. Clear. MASTOID AIR CELLS: Unremarkable as visualized. Clear. ORBITS: Unremarkable as visualized. Both globes, extraocular muscles, optic nerves and retrobulbar fat appear unremarkable. VASCULATURE: Unremarkable as visualized. Normal flow voids in the major intracranial circulation. MRI/Brain W/WO Contrast IMPRESSION: Negative MRI brain without and with intravenous contrast. Electronically Signed: Gabino Rockwell MD at 2:40 EST ,
== END | disposition home or self-care (01) ==
PROVIDERS: PCP Family Medicine; Visit Provider Family Medicine
DX: R29.6 Repeated falls (principal); Z79.01 Long term (current) use of anticoagulants; Z82.49 Family history of ischemic heart disease and other diseases of the circulatory system
CPT/HCPCS: 70553; A9581

== ENCOUNTER → 2022-12-08 | Outpatient (CLI) | payer MEDICARE, OTHER, SELFPAY ==
--- NOTE | 2022-12-08 10:47 | RAD_ITS ---
STUDY: X-RAY - LEFT KNEE REASON FOR EXAM: Female, 67 years old. PAIN TECHNIQUE: 4 view(s) of the knee. COMPARISON: None. FINDINGS: There is demineralization of the visualized distal femur. There is demineralization of the tibia and fibula. Normal proximal tibiofibular articulation. There is severe degenerative arthrosis of the medial femorotibial compartment with severe joint space narrowing. There is mild degenerative arthrosis of the lateral femorotibial compartment. There is moderate degenerative arthrosis of the patellofemoral articulation. Degenerative spurs in the posterior patella, chondrocalcinosis in the lateral compartment The soft tissue structures are unremarkable. RAD/Knee 4 or More Views IMPRESSION: Severe medial compartment arthrosis with subchondral sclerosis on the medial tibial plateau Moderate posterior patellar joint effusion with spur formation Chondrocalcinosis Electronically Signed: Jairo Hensley MD at 14:10 EDT ,
--- NOTE | 2022-12-08 10:47 | RAD_ITS ---
STUDY: X-RAY - RIGHT KNEE REASON FOR EXAM: Female, 67 years old. Pain and stiffness TECHNIQUE: 4 view(s) of the knee. COMPARISON: None. FINDINGS: There is demineralization of the visualized distal femur. Normal visualized proximal tibia and fibula. Normal proximal tibiofibular articulation. There is mild degenerative arthrosis of the medial femorotibial compartment. There is moderate degenerative arthrosis of the lateral femorotibial compartment with moderate joint space narrowing. There is moderate degenerative arthrosis of the patellofemoral articulation. There is a soft tissue prominence in the suprapatellar region suggesting a small volume joint effusion. Degenerative spurs noted on the posterior patella RAD/Knee 4 or More Views IMPRESSION: Osteopenia with degenerative arthrosis and spur formation, no demonstrated fracture or suspicious osseous lesion Small suprapatellar effusion Electronically Signed: Jairo Hensley MD at 14:09 EDT ,
== END | disposition home or self-care (01) ==
LOC: MTRAD 10:46
PROVIDERS: PCP Family Medicine; Referring Provider Family Medicine; Visit Provider Family Medicine
DX: M25.561 Pain in right knee (principal); M25.562 Pain in left knee
CPT/HCPCS: 73564

== ENCOUNTER → 2023-03-12 | Outpatient (CLI) | payer MEDICARE, OTHER, SELFPAY ==
--- NOTE | 2023-03-12 11:13 | RAD_ITS ---
HISTORY DAISY HIP REPLACEMENTS - POST FALL. TECHNIQUE: XR Hips Bilateral with Pelvis when performed; 2 Views. COMPARISON: CT 12/21/2017. FINDINGS: BONES : No acute fracture identified. Generalized osteopenia noted. JOINTS: Bilateral hip arthroplasties in place without dislocation. SOFT TISSUES: Oval density in the right pelvis, possible ingested medication. RAD/Hips B/L min 2 views w/ Pelvis IMPRESSION: Bilateral hip arthroplasties without acute fracture or dislocation identified. Electronically Signed: Ginger Urbina MD at 11:35 EDT ,
--- NOTE | 2023-03-12 11:13 | RAD_ITS ---
HISTORY: LUMBAR BACK PAIN - POST FALL. TECHNIQUE: XR Spine Lumbar Min 4 Views. COMPARISON: CT 12/21/2017. FINDINGS: VERTEBRAE: Vertebral body heights preserved. Degenerative changes of the posterior elements. Bilateral hip arthroplasties noted. ALIGNMENT: No significant anterior or posterior subluxation. Mild levoscoliosis. INTERVERTEBRAL DISCS: Moderate intervertebral disc space narrowing with endplate change of L2-3 and L3-4. Mild degenerative endplate change and intervertebral disc space narrowing of L1-2, L4-5, and L5-S1. SOFT TISSUES: Right upper quadrant surgical clips. Small oval density overlying the left sacrum. RAD/L/S Spine Min 4 Views IMPRESSION: No acute fracture or dislocation identified in the lumbar spine. Multilevel degenerative change. Mild scoliosis. Electronically Signed: Ginger Urbina MD at 11:17 EDT ,
== END | disposition home or self-care (01) ==
LOC: MTRAD 11:12
PROVIDERS: PCP Family Medicine; Referring Provider Nurse Practitioner Family; Visit Provider Nurse Practitioner Family
DX: M54.50 Low back pain, unspecified (principal); Z91.81 History of falling; Z96.643 Presence of artificial hip joint, bilateral
CPT/HCPCS: 72110; 73521

== ENCOUNTER 2023-04-30 12:59 | Emergency (ER) | payer MEDICARE, OTHER, SELFPAY ==
[2023-04-30 13:00] VITALS: BP 183/79; PULSE 79; RESP 18; TEMP 36.6; O2SAT 98; BMI 42.2
[2023-04-30 13:01] VITALS: BMI 42.2
--- NOTE | 2023-04-30 13:06 | CT_ITS ---
STUDY: CT BRAIN WITHOUT CONTRAST REASON FOR EXAM: Female, 67 years old. Head trauma on Coumadin. Patient fell one week ago. Dizziness. RADIATION DOSAGE (If Supplied By Facility): CTDIvol = ( 44.99 ) mGy, DLP = ( 796.11 ) mGycm TECHNIQUE: Transaxial CT imaging of the brain was performed without administration of intravenous contrast material. Individualized dose optimization techniques were used for this CT. COMPARISON: No relevant priors. FINDINGS: Normal soft tissue structures. Normal calvarium. Normal size ventricles and extra-axial spaces for the patient''s age. Normal white matter tracts of the cerebral hemispheres. Normal basal ganglia and thalami. Normal brainstem. Normal cerebellum. There is no intracranial hemorrhage. There are no findings of an acute ischemic infarction. Normal visualized paranasal sinuses. CT/Brain/Head without Contrast IMPRESSION: Normal unenhanced CT scan of the brain. Electronically Signed: Darius Marin MD at 13:49 EDT ,
--- NOTE | 2023-04-30 13:28 | EX.ED.GENINJ ---
HPI History of Present Illness Chief Complaint: Head Injury Detail of Chief Complaint: Fell last week striking her head Informant: patient Onset/Context/Timing Onset: Days Mechanism/Context: Blunt Injury Quality of Pain: - (Initially left occipital area now complains of pain right parietal region) Location: Left occipital and right parietal Current Severity: Mild Maximum Severity: Moderate Worsened by: Nothing Relieved by: Nothing Associated Symptoms Associated Symptoms: Positive for - (Patient was dazed. She complained of severe pain.); Negative for Parasthesias, Weakness, Loss of function, Inability to ambulate, Loss of consciousness or Amnesia Narrative Narrative: Patient is a 67-year-old woman with history of pulmonary embolus, DVT, factor V Leiden, hyperlipidemia, obstructive sleep apnea, type 2 diabetes and essential hypertension who presents with worsening headache. Initially the headache was left-sided where she sustained the blunt trauma. She now complaining of pain on the right parietal area. She denies double vision, blurred vision loss of vision. Eyes ringing ears decreased hearing. Denies neck pain. She denies paresthesia, anesthesia motors upper or lower extremity. She denies hematemesis, melena medic easier. She denies hematuria, dysuria, frequency or urgency. Prior similar symptoms: No Recent Illness/Hospitalization: No PFSH PFSH Medical History Anxiety and depression Asthma Chronic diastolic heart failure Congestive heart failure COVID-19 Encounter for screening for COVID-19 Essential hypertension GERD (gastroesophageal reflux disease) IBS (irritable bowel syndrome) Premature atrial contraction Premature ventricular contraction SVT (supraventricular tachycardia) Type 2 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 Home Medications fenofibrate 160 mg tablet 160 mg PO QHS cholesterol 02/09/14 [History Last Taken 12/20/17 19:00] ropinirole 3 mg tablet 1 - 3 mg PO QHS restless legs 02/09/14 [History Last Taken 12/20/17 23:00] tramadol 50 mg tablet 50 mg PO Q6H PRN PRN Pain #8 tabs 04/09/14 [Rx Last Taken Unknown] sertraline 100 mg tablet 200 mg PO DAILY depression 11/30/16 [History Last Taken 12/20/17 09:00] albuterol sulfate 90 mcg/actuation aerosol inhaler (Ventolin HFA) 2 puff inhalation Q6H PRN Wheezing 05/28/19 [History Last Taken Unknown] meclizine 25 mg tablet 25 mg PO TID PRN Dizziness 05/28/19 [History Last Taken Unknown] albuterol sulfate 0.63 mg/3 mL solution for nebulization 0.63 mg inhalation Q6H PRN Sob &/Or Wheezing 06/08/20 [History Last Taken Unknown] gabapentin 100 mg capsule 100 mg PO TID 03/29/21 [History Last Taken Unknown] warfarin 1 mg tablet 1 mg PO DAILY 03/29/21 [History Last Taken Unknown] warfarin 2 mg tablet 2 mg PO DAILY 03/29/21 [History Last Taken Unknown] furosemide 20 mg tablet 20 mg PO DAILY PRN Swelling 05/26/21 [History Last Taken Unknown] glipizide 10 mg tablet 5 mg PO BID 06/01/22 [History Last Taken Unknown] metformin 1,000 mg tablet 500 mg PO BIDCM diabetes 06/01/22 [History Last Taken Unknown] omeprazole magnesium 20 mg tablet,delayed release (Prilosec OTC) 20 mg PO BID 06/01/22 [History Last Taken Unknown] warfarin 5 mg tablet 3 mg PO DAILY 06/01/22 [History Last Taken Unknown] nystatin 100,000 unit/gram topical cream 1 applic topical BID #15 grams 09/26/22 [Rx Last Taken Unknown] triamcinolone acetonide 0.5 % topical cream 1 applic topical BID 7 days #15 grams 09/26/22 [Rx Last Taken Unknown] fluconazole 150 mg tablet (Diflucan) 150 mg PO ONCE #2 tabs 09/30/22 [Rx Last Taken Unknown] fluticasone 250 mcg-salmeterol 50 mcg/dose blistr powdr for inhalation (Wixela Inhub) 1 inh inhalation BID #60 ea 01/08/23 [Rx Last Taken Unknown] vibegron 75 mg tablet (Gemtesa) 75 mg PO DAILY 01/08/23 [History Last Taken Unknown] hydrocodone-acetaminophen 5-325mg 5mg-325mg 1 tab PO Q6H PRN PRN Pain 3 days #10 TABLETS 04/30/23 [Rx Last Taken Unknown] Allergy/AdvReac Type Severity Reaction Status Date / Time KENYA Inhibitors Allergy cough Verified 04/30/23 13:02 clindamycin Allergy Hives Verified 04/30/23 13:02 liraglutide [From Victoza] Allergy lump in Verified 04/30/23 13:02 throat metoprolol Allergy unk Verified 04/30/23 13:02 propoxyphene napsylate Allergy Unknown Verified 04/30/23 13:02 [From Darvocet-N 100] repaglinide AdvReac Severe Back Pain, Verified 04/30/23 13:02 PULIDO, Nausea Family History Father Diabetes Heart disease Mother CVA (cerebral vascular accident) Alzheimer disease Sister Cancer throat, mouth Surgical History History of cholecystectomy History of hip replacement History of laparoscopic-assisted vaginal hysterectomy Hx of appendectomy Social History (Updated 04/30/23 @ 13:[address] Daniel Sharma MD) household members: spouse Smoking Status: Never smoker alcohol intake: never substance use type: does not use caffeine: Yes what type of physical activity do you participate in: none seatbelt use: always do you feel safe at home: Yes additional social history: Arnulfo- Retired from [employer] ED Constitutional Constitutional ED: Denies chills, fever(s), subjective, sweats or weight loss Eyes Eyes: Denies blurry vision or change in vision ENT ENT ED: Denies ear pain, rhinorrhea or sore throat Cardiovascular Cardiovascular: Denies chest pain, palpitations, paroxysmal nocturnal dyspnea or racing heartbeat Respiratory/Chest Respiratory/Chest: Denies cough, dyspnea, dyspnea on exertion or paroxysmal nocturnal dyspnea Gastrointestinal Gastrointestinal: Denies abdominal pain, melena, nausea or vomiting Genitourinary Genitourinary ED: Denies dysuria, hematuria or urinary frequency Musculoskeletal Musculoskeletal: Denies arthralgias, back pain, myalgias or neck pain Integumentary Denies rash Neurologic Neurologic: Reports headache(s); Denies paresthesias or weakness Psychiatric Psychiatric: Denies anxiety or depression Endocrine Endocrinology: Denies cold intolerance or heat intolerance Hematologic/Lymphatic Hematologic/Lymphatic: Reports easy bruising; Denies easy bleeding EXAM Physical Exam Const Vital Signs: 04/30/23 13:00 04/30/23 13:08 Temperature 97.8 F Temperature Source Temporal Pulse Rate 79 Respiratory Rate 18 Respiratory Effort Normal Non-Labored Blood Pressure 183/79 H Blood Pressure Mean 113 Pulse Ox 98 Oxygen Delivery Method Room Air Room Air Positive well nourished, well developed and obese Constitutional Narrative: Patient is not alert but is awake. General Appearance ED: well developed Nutritional Appearance: obese HEENT HEENT Narrative: There is a small contusion left occipital area. There is tenderness over the left occipital area. There is no palpable oppression. There is no clinical rice-based skull fracture. tenderness Eyes PERRL and EOMs intact bilaterally General Eye ED: Yes other Other Details: There is no subconjunctival hemorrhage Neck full ROM Neck Narrative: Full active range of motion without discomfort. General: Negative for tenderness Chest Wall inspection of chest normal and palpation of chest normal Resp normal respiratory effort and clear to auscultation bilaterally Cardio regular rhythm, S1 normal heart sound, S2 normal heart sound and no murmurs Rate: regular rate GI normal to inspection, nondistended, normoactive bowel sounds, non-tender, non-distended and no masses Palpation: soft Back/Spine normal to inspection and no thoracic nor lumbar tenderness General Back: Negative for CVA tenderness Thoracic Spine / Upper Back: Negative for thoracic spinal tenderness Lumbar Spine / Lower Back: Negative for straight leg raise negative bilaterally Extremity normal to inspection and full ROM General Extremety ED: Negative for deformity or tenderness General Extremity: Negative for deformity Neuro oriented x3, CN's II-XII intact bilaterally, moves all extremities, no focal motor deficits and no sensory deficits noted Elisha Coma Scale: document GCS findings Spontaneous Obeys Commands Oriented 15 Sensorium / Orientation: Negative for alert Deep Tendon Reflexes: Rt Triceps (C7): 1+, Lt Triceps (C7): 1+, Rt Biceps (C5, C6): 1+, Lt Biceps (C5, C6): 1+, Rt Patellar (L4): 1+, Lt Patellar (L4): 1+, Rt Ankle (S1): 1+ and Lt Ankle (S1): 1+ Deep Tendon Reflexes Back: Rt Patellar (L4): 1+, Lt Patellar (L4): 1+, Rt Ankle (S1): 1+ and Lt Ankle (S1): 1+ Plantar Reflex: Downgoing: bilateral Psych mental status grossly normal and thought process normal Skin no rashes or lesions noted, skin turgor normal and No no jaundice Rashes: No rashes noted Trauma: Negative for abrasion MDM MDM MDM Narrative Medical decision making narrative: Since patient is on a novel oral anticoagulant with head trauma now complaining of pain on the contrecoup area will obtain CT of the head to rule out intracranial bleed and specifically subdural. Also need to evaluate for subarachnoid hemorrhage and intraparenchymal bleed. Epidural as unlikely. Patient initially stated she was on Coumadin and reason PT/INR was ordered. Last she is noted to be on novel oral anticoagulant, Eliquis. CT of the head was reviewed and there is no evidence of subdural hematoma, epidural hematoma, traumatic subarachnoid hemorrhage or intraparenchymal contusion. Awaiting formal read by radiologist. I was informed by nurse at 1505 that patient is complaining of headache and would like something for head pain. 2 mg of morphine was ordered. Lab Data Labs: Laboratory Results - last 24 hr 04/30/23 13:55 PT 24.3 H INR 2.2 Radiography Diagnostic Testing: Clinical Impression(s) from Imaging Studies Brain CT 04/30/23 13:06 IMPRESSION: Normal unenhanced CT scan of the brain. Electronically Signed: Darius Marin MD at 13:49 EDT , Treatment and Re-Evaluation Narrative: Patient was informed of her CAT scan results. She was informed that she has a postconcussive syndrome. She was discharged home with home-going structures. Discharge Plan Triage Chief Complaint: Head Injury ED Provider: Daniel Sharma Dx/Rx/DC Orders Clinical Impression: Closed head injury with brief loss of consciousness, Type 2 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, Essential hypertension, Anticoagulant long-term use Instructions: ED Concussion Prescriptions: New hydrocodone-acetaminophen [hydrocodone-acetaminophen] 5-325 mg tablet 1 tab PO Q6H PRN PRN (Reason: Pain) 3 Days Qty: 10 0RF No Action meclizine 25 mg tablet 25 mg PO TID PRN (Reason: Dizziness) albuterol sulfate [Ventolin HFA] 90 mcg/actuation HFA aerosol inhaler 2 puff INHALATION Q6H PRN (Reason: Wheezing) albuterol sulfate 0.63 mg/3 mL solution for nebulization 0.63 mg INHALATION Q6H PRN (Reason: Sob &/Or Wheezing) warfarin 2 mg tablet 2 mg PO DAILY gabapentin 100 mg capsule 100 mg PO TID warfarin 1 mg tablet 1 mg PO DAILY glipizide 10 mg tablet 5 mg PO BID warfarin 5 mg tablet 3 mg PO DAILY omeprazole magnesium [Prilosec OTC] 20 mg tablet,delayed release (DR/EC) 20 mg PO BID Gemtesa 75 mg tablet 75 mg PO DAILY fluticasone propion-salmeterol [Wixela Inhub] 250-50 mcg/dose blister with device 1 inh inhalation BID Qty: 60 11RF fluconazole [Diflucan] 150 mg tablet 150 mg PO ONCE Qty: 2 0RF Rx Instructions: 1 tab on day one and symptoms continue day 3 then second pill ropinirole 3 MG tablet 1 - 3 mg PO QHS Patient Comments: RESTLESS LEGS fenofibrate 160 MG tablet 160 mg PO QHS Patient Comments: reduces triglycerides metformin 1,000 mg tablet 500 mg PO BIDCM Patient Comments: diabetes tramadol 50 MG tablet 50 mg PO Q6H PRN PRN (Reason: Pain) Qty: 8 0RF Patient Comments: pain sertraline 100 MG tablet 200 mg PO DAILY Patient Comments: depression furosemide 20 mg tablet 20 mg PO DAILY PRN (Reason: Swelling) triamcinolone acetonide 0.5 % cream 1 applic topical BID 7 Days Qty: 15 2RF Rx Instructions: peasized amount as instructed nystatin 100,000 unit/gram cream 1 applic topical BID Qty: 15 1RF Primary Care Provider: Sukhdeep Matthews Referrals: Sukhdeep Matthews, [Primary Care Provider] - 10-14 Days if not better Disposition Disposition: Home, Self Care
[2023-04-30 14:07] LABS: International Normalized Ratio 2.2; Prothrombin Time (Protime)PT. 24.3 SECONDS (11.7-14.9)
[2023-04-30] MEDS: Ondansetron ODT 4 MG Tablet PO (15:17)
[2023-04-30] MEDS: Morphine 2 MG/ML Syringe IM (15:18)
== END 2023-04-30 16:03 | disposition home or self-care (01) ==
PROVIDERS: Emergency Provider Emergency Medicine; PCP Family Medicine; Visit Provider Emergency Medicine
DX: F07.81 Postconcussional syndrome (principal); I11.0 Hypertensive heart disease with heart failure; I50.32 Chronic diastolic (congestive) heart failure; E11.9 Type 2 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 without complications; G44.309 Post-traumatic headache, unspecified, not intractable; S00.03XA Contusion of scalp, initial encounter; W01.10XA Fall on same level from slipping, tripping and stumbling with subsequent striking against unspecified object, initial encounter; E78.5 Hyperlipidemia, unspecified; J45.909 Unspecified asthma, uncomplicated; K21.9 Gastro-esophageal reflux disease without esophagitis; E66.9 Obesity, unspecified; Z79.01 Long term (current) use of anticoagulants; Z79.84 Long term (current) use of oral hypoglycemic drugs; Z79.899 Other long term (current) drug therapy
CPT/HCPCS: 36415; 70450; 85610; 96372; 99282; A4216; J2405

== ENCOUNTER → 2023-09-07 | Outpatient (CLI) | payer MEDICARE, OTHER, SELFPAY ==
[2023-09-07 12:29] LABS: Absolute Lymphocyte Count 2.13 X10^3/uL (0.83-4.51); Absolute Neutrophil Count 4.1 X10^3/uL (2.0-7.7); Basophil# 0.04 X10^3/uL; Basophil% 0.6 % (0-1); Eosinophil# 0.19 X10^3/uL; Eosinophils% 2.7 % (0-5); Hematocrit 39.1 % (37-47); Hemoglobin 12.3 g/dL (12.0-15.0); Lymphocyte # 2.13 X10^3/ul (0.83-4.51); Lymphocyte % 30.8 % (19-41); Mean Corp Hgb Conc 31.5 g/dL (32-36); Mean Corpuscular Hgb 27.4 pg (27.0-32.0); Mean Corpuscular Volume 87.1 fL (81-99); Monocyte# 0.43 X10^3/uL; Monocyte% 6.2 % (0-10); NRBC Flagged by Analyzer 0 % (0-5); Neutrophil # 4.11 X10^3/uL (2.7-7.7); Neutrophil % 59.4 % (47-70); Platelet Count 360 K/mm3 (150-450); RBC Distribution Width CV 15.3 % (11.6-14.6); RBC Distribution Width SD 49.1 fl (35.1-43.9); Red Blood Count 4.49 M/mm3 (4.2-5.4); White Blood Count 6.9 K/mm3 (4.4-11.0)
[2023-09-07 13:05] LABS: BNP,B-Type NATRIURETIC PEPTIDE 48.6 pg/mL (0-100)
[2023-09-07 13:14] LABS: T4 Free Direct 0.87 ng/dL (0.76-1.46); Thyroid Stim Hormone (TSH) 1.45 uIU/mL (0.358-3.74)
== END | disposition home or self-care (01) ==
LOC: MTLAB 11:07
PROVIDERS: PCP Family Medicine; Referring Provider Family Medicine; Visit Provider Family Medicine
DX: E11.9 Type 2 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 without complications (principal); I42.9 Cardiomyopathy, unspecified; R53.83 Other fatigue
CPT/HCPCS: 36415; 83036; 83880; 84439; 84443; 85025

== ENCOUNTER 2023-11-04 14:35 | Emergency (ER) | payer MEDICARE, OTHER, SELFPAY ==
[2023-11-04 14:36] VITALS: BP 169/77; PULSE 88; RESP 16; TEMP 35.8; O2SAT 100; BMI 40.5
--- NOTE | 2023-11-04 15:23 | CT_ITS ---
STUDY: CT BRAIN WITHOUT CONTRAST REASON FOR EXAM: Female, 68 years old. trauma RADIATION DOSAGE (If Supplied By Facility): CTDIvol = ( 44.99 ) mGy, DLP = ( 779.24 ) mGycm TECHNIQUE: Transaxial CT imaging of the brain was performed without administration of intravenous contrast material. Individualized dose optimization techniques were used for this CT. COMPARISON: 04/30/2023 FINDINGS: Normal soft tissue structures. Normal calvarium. Normal size ventricles and extra-axial spaces for the patient''s age. Normal white matter tracts of the cerebral hemispheres. Normal basal ganglia and thalami. Normal brainstem. Normal cerebellum. There is no intracranial hemorrhage. There are no findings of an acute ischemic infarction. Normal visualized paranasal sinuses. CT/Brain/Head without Contrast IMPRESSION: Normal unenhanced CT scan of the brain. Electronically Signed: Angel Nath MD at 16:44 EST ,
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
== END 2023-11-04 17:05 | disposition home or self-care (01) ==
PROVIDERS: Emergency Provider Emergency Medicine; PCP Family Medicine; Visit Provider Emergency Medicine
DX: S09.90XA Unspecified injury of head, initial encounter (principal); I50.32 Chronic diastolic (congestive) heart failure; I11.0 Hypertensive heart disease with heart failure; D68.51 Activated protein C resistance; E11.9 Type 2 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 without complications; K21.9 Gastro-esophageal reflux disease without esophagitis; W22.8XXA Striking against or struck by other objects, initial encounter; J45.909 Unspecified asthma, uncomplicated; F41.9 Anxiety disorder, unspecified; F32.A Depression, unspecified; Z79.899 Other long term (current) drug therapy; R11.0 Nausea; Z79.01 Long term (current) use of anticoagulants; Z86.718 Personal history of other venous thrombosis and embolism; Z86.711 Personal history of pulmonary embolism
CPT/HCPCS: 70450; 99282

== ENCOUNTER → 2024-02-29 | Outpatient (CLI) | payer MEDICARE, OTHER, SELFPAY ==
[2024-02-29 18:03] LABS: Absolute Lymphocyte Count 1.39 X10^3/uL (0.83-4.51); Basophil# 0.01 X10^3/uL; Basophil% 0.1 % (0-1); Eosinophil# 0.13 X10^3/uL; Eosinophils% 1.9 % (0-5); Hematocrit 39.9 % (37-47); Hemoglobin 12.7 g/dL (12.0-15.0); Lymphocyte # 1.39 X10^3/ul (0.83-4.51); Lymphocyte % 20.2 % (19-41); Mean Corp Hgb Conc 31.8 g/dL (32-36); Mean Corpuscular Hgb 29.5 pg (27.0-32.0); Mean Corpuscular Volume 92.8 fL (81-99); Monocyte# 0.39 X10^3/uL; Monocyte% 5.7 % (0-10); NRBC Flagged by Analyzer 0 % (0-5); Neutrophil # 4.95 X10^3/uL (2.7-7.7); Neutrophil % 71.8 % (47-70); Platelet Count 376 K/mm3 (150-450); RBC Distribution Width CV 13.2 % (11.6-14.6); RBC Distribution Width SD 44.6 fl (35.1-43.9); White Blood Count 6.9 K/mm3 (4.4-11.0)
[2024-02-29 18:16] LABS: Anion Gap 7 (5-15); BUN 15 mg/dL (7-18); BUN/Creat Ratio 18.1 RATIO (10-20); Calcium,Total 9.6 mg/dL (8.5-10.1); Chloride 105 mmol/L (98-107); Creatinine, Serum 0.83 mg/dL (0.55-1.02); EST Glomerular Filtration Rate 73 mL/min (>60); Est Glom Filt Rate - Afr Amer 88 mL/min (>60); Glucose 143 mg/dL (74-106); Potassium 3.2 mmol/L (3.5-5.1); Sodium Level 139 mmol/L (136-145)
[2024-02-29 18:23] LABS: Color, Urine Yellow (Yellow); Glucose, Dipstick Normal (Normal); Ketone-Dipstick Negative (Negative); Leukocyte Esterase-Dipstick 25 /ul (Negative); Nitrite-Dipstick Positive (Negative); Occult Blood-Urine 10 /ul (Negative); Protein-Dipstick 15 mg/dl (Negative); Urine Bilirubin Dipstick Negative (Negative); Urine Clarity Sl. Cloudy (Clear); Urine Urobilinogen Normal (Normal)
[2024-02-29 18:28] LABS: Hemoglobin A1c 5.7 % (3.8-5.6)
== END | disposition home or self-care (01) ==
PROVIDERS: PCP Family Medicine; Referring Provider Family Medicine; Visit Provider Family Medicine
DX: R06.00 Dyspnea, unspecified (principal); E11.9 Type 2 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 without complications; N39.0 Urinary tract infection, site not specified; I10 Essential (primary) hypertension
CPT/HCPCS: 80048; 81002; 83036; 83880; 85025

== ENCOUNTER → 2024-03-03 | Outpatient (CLI) | payer MEDICARE, OTHER, SELFPAY | END | disposition home or self-care (01) | LOC: LABSPEC 09:57 | PROVIDERS: PCP Family Medicine; Visit Provider Family Medicine | DX: N39.0 Urinary tract infection, site not specified (principal) | CPT/HCPCS: 87077; 87086; 87088; 87186 ==

== ENCOUNTER 2024-04-05 10:10 | Emergency (ER) | payer MEDICARE, OTHER, SELFPAY ==
[2024-04-05 10:12] VITALS: BP 131/87; PULSE 85; PULSE 86; RESP 16; TEMP 36.2; O2SAT 100; BMI 38.4
--- NOTE | 2024-04-05 11:16 | EX.ED.DYSGE1 ---
HPI History of Present Illness Chief Complaint: Burn Detail of Chief Complaint: Wound check Informant: patient Narrative Narrative: Patient presents secondary to wound check. She had a second-degree sunburn on her feet several days ago. She has been on Keflex for the past 5 days. She is noticing some new lesions popping up and was concerned about pus draining from on the wounds. She is diabetic but has not been checking her blood sugars. [facility] Medical History Anxiety Depression, unspecified COVID-19 Encounter for screening for COVID-19 Chronic diastolic heart failure IBS (irritable bowel syndrome) GERD (gastroesophageal reflux disease) Premature ventricular contraction Premature atrial contraction SVT (supraventricular tachycardia) Essential hypertension Type 2 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 Asthma Congestive heart failure Anxiety and depression Home Medications ?Medication ?Instructions ?Recorded ?Last Taken ?Type tramadol 50 mg tablet 50 mg PO Q6H PRN PRN Pain #8 tabs 04/09/14 Unknown Rx albuterol sulfate 90 mcg/actuation 2 puff inhalation Q6H PRN Wheezing 05/28/19 Unknown History aerosol inhaler (Ventolin HFA) meclizine 25 mg tablet 25 mg PO TID PRN Dizziness 05/28/19 Unknown History gabapentin 100 mg capsule 100 mg PO TID 03/29/21 Unknown History warfarin 2 mg tablet 2 mg PO SUTUTHSA 03/29/21 Unknown History furosemide 20 mg tablet 20 mg PO DAILY PRN Swelling 05/26/21 Unknown History omeprazole magnesium 20 mg 20 mg PO DAILY 06/01/22 Unknown History tablet,delayed release (Prilosec OTC) warfarin 5 mg tablet 3 mg PO MOWEFR 06/01/22 Unknown History vibegron 75 mg tablet (Gemtesa) 75 mg PO DAILY 01/08/23 Unknown History atorvastatin 40 mg tablet 40 mg PO QHS 07/18/23 Unknown History budesonide 1 mg/2 mL suspension 1 mg (2 mL) inhalation BID #60 mL 07/18/23 Unknown Rx for nebulization ipratropium 0.5 mg-albuterol 3 mg 3 ml inhalation Q4H PRN PRN SOB 07/18/23 Unknown Rx (2.5 mg base)/3 mL nebulization &/OR WHEEZING #180 mL soln losartan 50 mg tablet 50 mg PO DAILY 07/18/23 Unknown History potassium chloride 20 mEq 20 meq PO BID 07/18/23 Unknown History tablet,extended release ondansetron 4 mg disintegrating 4 mg PO Q8H PRN PRN Nausea #10 tabs 11/04/23 Unknown Rx tablet diazepam 5 mg tablet 5 mg PO TID PRN anxiety 01/02/24 Unknown History ropinirole 3 mg tablet 3 mg PO QHS restless legs 01/02/24 Unknown History tirzepatide 5 mg/0.5 mL mg subcut 01/02/24 Unknown History subcutaneous pen injector (Mounjaro) duloxetine 60 mg capsule,delayed 60 mg PO DAILY #90 caps 02/13/24 Unknown Rx release Allergy/AdvReac Type Severity Reaction Status Date / Time KENYA Inhibitors Allergy cough Verified 04/05/24 10:11 clindamycin Allergy Hives Verified 04/05/24 10:11 liraglutide (From Victoza) Allergy lump in Verified 04/05/24 10:11 throat metoprolol Allergy unk Verified 04/05/24 10:11 propoxyphene napsylate (From Allergy Unknown Verified 04/05/24 10:11 Darvocet-N 100) repaglinide AdvReac Severe Back Pain, Verified 04/05/24 10:11 PULIDO, Nausea Family History Father Diabetes Heart disease Mother CVA (cerebral vascular accident) Alzheimer disease Sister Cancer throat, mouth Surgical History History of cholecystectomy History of laparoscopic-assisted vaginal hysterectomy History of hip replacement Hx of appendectomy Social History household members: spouse Smoking Status: Never smoker alcohol intake: never substance use type: does not use caffeine: Yes what type of physical activity do you participate in: none seatbelt use: always do you feel safe at home: Yes additional social history: [place]- Retired from [employer] ROS ROS ED Constitutional Constitutional ED: Denies chills or fever(s) Eyes Eyes: Denies change in vision or discharge from eye(s) ENT ENT ED: Denies discharge from eye(s), rhinorrhea or sore throat Cardiovascular Cardiovascular: Denies chest pain Respiratory/Chest Respiratory/Chest: Denies cough or dyspnea Gastrointestinal Gastrointestinal: Denies abdominal pain, nausea or vomiting Genitourinary Genitourinary ED: Denies difficulty urinating or dysuria Musculoskeletal Musculoskeletal: Reports extremity pain; Denies back pain Integumentary Reports other Details: Emmanuel and blisters ; Denies Abrasions or rash Neurologic Neurologic: Reports weakness; Denies headache(s) Psychiatric Psychiatric: Denies anxiety or depression Allergic/Immunologic Allergic/Immunologic ED: Denies lip swelling or urticaria EXAM Physical Exam Const Vital Signs: 04/05/24 10:12 04/05/24 10:12 04/05/24 10:15 Temperature 97.2 F L 97.2 F L Temperature Source Temporal Temporal Pulse Rate 85 86 Respiratory Rate 16 16 Respiratory Effort Normal Blood Pressure 131/87 H 131/87 H Blood Pressure Mean 101 101 Pulse Ox 100 100 Oxygen Delivery Method Room Air Room Air Positive well nourished and well developed General Appearance ED: well developed HEENT Reports moist mucous membranes Eyes EOMs intact bilaterally Chest Wall inspection of chest normal and palpation of chest normal Resp normal respiratory effort and clear to auscultation bilaterally Cardio regular rate and regular rhythm GI non-tender Palpation: soft Extremity Extremity Narrative: Left lower extremity: Patient has a 2 cm diameter blister that has opened over the top of her left distal foot. Minimal surrounding erythema. No drainage. No sign of infection. Right lower extremity: Patient has a 2 x 2.5 cm round blister on the top of the foot near the MTP joint of the first toe with some mild edema. No drainage or sign of infection at this time. Smaller skin tear noted over the third and fourth metatarsal. Linear skin tear noted over the right chavira. Mild erythema to the chin, but more consistent with thermal burn as opposed to acute cellulitis. Neuro oriented x3 and no sensory deficits noted Motor Exam: strength 5/5 throughout Psych mental status grossly normal MDM MDM MDM Narrative Medical decision making narrative: Wounds at this time did not show any evidence of secondary infection. She will continue her course of Keflex. Wounds are cleansed. Antibiotic ointment and dressing are applied. Patient to keep her feet elevated to help with swelling. We will check a blood sugar prior to discharge. Discharge Plan Triage Chief Complaint: Burn ED Provider: Bri Glaser Dx/Rx/DC Orders Clinical Impression: Second degree burn Instructions: ED Burn, Second-Degree Prescriptions: No Action meclizine 25 mg tablet 25 mg PO TID PRN (Reason: Dizziness) albuterol sulfate [Ventolin HFA] 90 mcg/actuation HFA aerosol inhaler 2 puff INHALATION Q6H PRN (Reason: Wheezing) warfarin 2 mg tablet 2 mg PO SUTUTHSA gabapentin 100 mg capsule 100 mg PO TID warfarin 5 mg tablet 3 mg PO MOWEFR omeprazole magnesium [Prilosec OTC] 20 mg tablet,delayed release (DR/EC) 20 mg PO DAILY Gemtesa 75 mg tablet 75 mg PO DAILY losartan 50 mg tablet 50 mg PO DAILY Patient Comments: TAKE 1 TABLET BY MOUTH EVERY DAY atorvastatin 40 mg tablet 40 mg PO QHS Patient Comments: TAKE 1 TABLET BY MOUTH EVERY DAY potassium chloride 20 mEq tablet extended release 20 meq PO BID Patient Comments: TAKE 1 TABLET BY MOUTH TWICE DAILY WITH FOOD ipratropium-albuterol 0.5 mg-3 mg(2.5 mg base)/3 mL solution for nebulization 3 ml inhalation Q4H PRN PRN (Reason: SOB &/OR WHEEZING) Qty: 180 6RF budesonide 1 mg/2 mL suspension for nebulization 1 mg inhalation BID Qty: 60 6RF diazepam 5 mg tablet 5 mg PO TID PRN (Reason: anxiety) Mounjaro 5 mg/0.5 mL pen injector subcut duloxetine 60 mg capsule,delayed release(DR/EC) 60 mg PO DAILY Qty: 90 1RF ropinirole 3 mg tablet 3 mg PO QHS Patient Comments: RESTLESS LEGS tramadol 50 MG tablet 50 mg PO Q6H PRN PRN (Reason: Pain) Qty: 8 0RF Patient Comments: pain furosemide 20 mg tablet 20 mg PO DAILY PRN (Reason: Swelling) ondansetron [ondansetron] 4 mg tablet,disintegrating 4 mg PO Q8H PRN PRN (Reason: Nausea) Qty: 10 0RF Primary Care Provider: Sukhdeep Matthews Referrals: Sukhdeep Matthews DO [Primary Care Provider] - 5-7 Days Wound,Center [Non-Staff] - As Needed Activity Restrictions/Additional Instructions: Please continue your antibiotics. Follow-up with your primary care physician. If you feel that your wounds are not healing appropriately, you can follow-up with the wound center for further wound care. Print Language: Japanese Disposition Disposition: Home, Self Care
[2024-04-05 11:38] LABS: Bedside Glucose 94 mg/dL (74-106)
== END 2024-04-05 11:49 | disposition home or self-care (01) ==
PROVIDERS: Emergency Provider Emergency Medicine; PCP Family Medicine; Visit Provider Emergency Medicine
DX: T25.222A Burn of second degree of left foot, initial encounter (principal); I11.0 Hypertensive heart disease with heart failure; I50.32 Chronic diastolic (congestive) heart failure; E11.9 Type 2 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 without complications; L55.1 Sunburn of second degree; X19.XXXA Contact with other heat and hot substances, initial encounter; Z79.01 Long term (current) use of anticoagulants; Z79.899 Other long term (current) drug therapy; Z79.85 Long-term (current) use of injectable non-insulin antidiabetic drugs
CPT/HCPCS: 82962; 99282

== ENCOUNTER → 2024-07-08 | Outpatient (CLI) | payer MEDICARE, OTHER, SELFPAY ==
[2024-07-08 13:04] LABS: Absolute Lymphocyte Count 1.97 X10^3/uL (0.83-4.51); Absolute Neutrophil Count 3.7 X10^3/uL (2.0-7.7); Basophil# 0.02 X10^3/uL; Basophil% 0.3 % (0-1); Eosinophil# 0.18 X10^3/uL; Eosinophils% 2.9 % (0-5); Hematocrit 37.7 % (37-47); Lymphocyte # 1.97 X10^3/ul (0.83-4.51); Lymphocyte % 31.2 % (19-41); Mean Corp Hgb Conc 31.8 g/dL (32-36); Mean Corpuscular Hgb 28.8 pg (27.0-32.0); Mean Corpuscular Volume 90.6 fL (81-99); Mean Platelet Vol. 9.8 fl (6.2-12.0); Monocyte# 0.38 X10^3/uL; NRBC Flagged by Analyzer 0 % (0-5); Neutrophil # 3.74 X10^3/uL (2.7-7.7); Neutrophil % 59.3 % (47-70); Platelet Count 342 K/mm3 (150-450); RBC Distribution Width SD 43.1 fl (35.1-43.9); Red Blood Count 4.16 M/mm3 (4.2-5.4); White Blood Count 6.3 K/mm3 (4.4-11.0)
[2024-07-08 15:25] LABS: Hemoglobin A1c 6.2 % (3.8-5.6)
[2024-07-08 15:53] LABS: ALB/GLOB Ratio 1.1 RATIO (0.9-2.4); AST(SGOT) 16 U/L (15-37); Alanine Aminotransfer ALT/SGPT 24 U/L (13-56); Albumin, Serum 3.4 g/dL (3.2-5.0); Alkaline Phosphatase 83 U/L (45-117); Anion Gap 6 (5-15); BUN 13 mg/dL (7-18); BUN/Creat Ratio 18.2 RATIO (10-20); Calcium,Total 9.2 mg/dL (8.5-10.1); Chloride 108 mmol/L (98-107); Cholesterol 127 mg/dL (200); Creatinine, Serum 0.71 mg/dL (0.55-1.02); EST Glomerular Filtration Rate 86 mL/min (>60); Est Glom Filt Rate - Afr Amer 104 mL/min (>60); Ferritin 17 ng/mL (8-252); Globulin 3.2 g/dL (2.2-4.2); Glucose 105 mg/dL (74-106); High Density Lipoprotein 85 mg/dL; Iron 83 ug/dL (50-170); Potassium 3.8 mmol/L (3.5-5.1); Protein, Total 6.6 g/dL (6.4-8.2); Sodium Level 141 mmol/L (136-145); Triglycerides 127 mg/dL; Very Low Density Lipoprotein 25 mg/dL (5-40)
[2024-07-08 16:20] LABS: Microalbumin:Creatinine Ratio 22.6 mg/g CRE (<30 mg/g CRE)
[2024-07-15 18:08] LABS: Vitamin B12 340 pg/mL (232-1245)
== END | disposition home or self-care (01) ==
LOC: BFHLAB 11:05
PROVIDERS: PCP Family Medicine; Referring Provider Family Medicine; Visit Provider Family Medicine
DX: E11.9 Type 2 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 without complications (principal); I10 Essential (primary) hypertension; E78.5 Hyperlipidemia, unspecified; E53.8 Deficiency of other specified B group vitamins; E55.9 Vitamin D deficiency, unspecified; D50.9 Iron deficiency anemia, unspecified
CPT/HCPCS: 36415; 80053; 80061; 82043; 82306; 82570; 82607; 82728; 83036; 83540; 85025

== ENCOUNTER 2024-08-04 03:22 | Emergency (ER) | payer MEDICARE, OTHER, SELFPAY ==
[2024-08-04 03:24] VITALS: BP 147/75; PULSE 74; RESP 18; TEMP 36.8; O2SAT 100; BMI 38.9
[2024-08-04] MEDS: Mag Hydrox/Al Hydrox/Simeth 30 ML UDC PO (03:42)
[2024-08-04] MEDS: Lidocaine 2% Viscous15 ML UDC 15 ML PO (03:42)
[2024-08-04 04:07] LABS: International Normalized Ratio 2.1; Prothrombin Time (Protime)PT. 23.7 SECONDS (11.7-14.9)
[2024-08-04 04:20] LABS: Troponin-I HS 9 pg/mL (3.0-54.0)
[2024-08-04 04:23] VITALS: BP 141/67; PULSE 72; RESP 18; O2SAT 96
[2024-08-04 04:37] VITALS: BP 141/67; PULSE 72; RESP 18; TEMP 36.8; O2SAT 96
== END 2024-08-04 04:40 | disposition home or self-care (01) ==
PROVIDERS: Emergency Provider Emergency Medicine; PCP Family Medicine; Visit Provider Emergency Medicine
DX: R07.89 Other chest pain (principal); I11.0 Hypertensive heart disease with heart failure; I50.32 Chronic diastolic (congestive) heart failure; E11.9 Type 2 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 without complications; R79.1 Abnormal coagulation profile; T45.515A Adverse effect of anticoagulants, initial encounter; R20.2 Paresthesia of skin; Z79.84 Long term (current) use of oral hypoglycemic drugs; Z79.899 Other long term (current) drug therapy
CPT/HCPCS: 71045; 84484; 85610; 93005; 99283; A4216

== ENCOUNTER → 2025-03-04 | Outpatient (CLI) | payer MEDICARE, OTHER, SELFPAY | END | disposition home or self-care (01) | LOC: LABSPEC 15:36 | PROVIDERS: PCP Family Medicine; Visit Provider Nurse Practitioner Family | DX: N39.0 Urinary tract infection, site not specified (principal) | CPT/HCPCS: 87086 ==

== ENCOUNTER → 2025-04-28 | Outpatient (CLI) | payer MEDICARE, OTHER, SELFPAY | END | disposition home or self-care (01) | LOC: SL 11:37 | PROVIDERS: PCP Family Medicine; Referring Provider Nurse Practitioner Acute Care; Visit Provider Nurse Practitioner Acute Care | DX: G47.33 Obstructive sleep apnea (adult) (pediatric) (principal) | CPT/HCPCS: 98960; G0463 ==

== ENCOUNTER → 2025-05-29 | Outpatient (CLI) | payer MEDICARE, OTHER, SELFPAY | END | disposition home or self-care (01) | PROVIDERS: PCP Family Medicine; Referring Provider Nurse Practitioner Acute Care; Visit Provider Nurse Practitioner Acute Care | DX: Z00.00 Encounter for general adult medical examination without abnormal findings (principal) ==

== ENCOUNTER 2025-08-16 15:32 | Emergency (ER) | payer MEDICARE, OTHER, SELFPAY ==
[2025-08-16 15:38] VITALS: BP 144/102; PULSE 113; RESP 18; TEMP 35.9; O2SAT 99
--- NOTE | 2025-08-16 17:17 | EKG12_ITS ---
Test Reason : GENERAL Blood Pressure : */* mmHG Vent. Rate : 96 BPM Atrial Rate : 96 BPM P-R Int : 152 ms QRS Dur : 92 ms QT Int : 348 ms P-R-T Axes : 15 16 27 degrees QTcB Int : 439 ms Normal sinus rhythm with sinus arrhythmia Normal ECG Confirmed by CATRACHO CEDENO, GAMALIEL ([id number]), film editor supervisor DESIRE LIMA ([id number]) on 08/17/2025 1:05:37 PM Referred By: Confirmed By: GAMALIEL HAYDEN MD
--- OUTSIDE RECORDS SUMMARY | 2025-08-16 17:31 | XMS RPT_ITS | CCD ---
Author Organization [facility] Care Team Providers Care Paper Inserter Name Role Phone Felicia Fung Unavailable Enrique Stanley Unavailable Unavailable Daniela DUNN, Rosy Lopez Unavailable Unavailable Le Abreu NP Unavailable Enrique Stanley Unavailable Unavailable Enrique Stanley Unavailable Unavailable Elissa Dial Primary Care Provider Elissa Dial Primary Care Provider DR ELISSA DIAL DO A Primary Care Physician [phone] Elissa Dial Primary Care Provider [phone] Elissa Dial Primary Care Provider Dr. Elissa Dial Referring Provider EV Rowe NP Attending Provider [phone] Dr. Elissa Dial Primary Care Provider Dr. Elissa Dial Referring Provider [phone] EV Rowe NP Attending Provider [phone] Dr. Elissa Dial Primary Care Provider Dr. Elissa Dial Referring Provider EV Saravia NP Attending Provider Dr. Elissa Dial Primary Care Provider Dr. Elissa Dial Referring Provider EV Saravia NP Attending Provider Elissa Dial Primary Care Provider [phone] Antoinette CEDENO, Tung Godoy Unavailable Elissa Dial Primary Care Provider Antoinette CEDENO, Tung Godoy Unavailable [phone] Dr. Elissa Dial Primary Care Provider Dr. Elissa Dial Referring Provider Dr. Tacho Julian Attending Provider Dr. Elissa Dial Primary Care Provider [phone] Dr. Elissa Dial Referring Provider Jae VOYAGE MANAGEMENT SYSTEM OPERATOR, VOYAGE MANAGEMENT SYSTEM OPERATOR-C Mary Attending Provider [phone] YARIEL CEDENO, KUSUM Bustos Attending Unavailable JAYRO BAUER, DR ELISSA Lopez Primary Care Unavailab lorri VERMILLION , CARLOS Douglas Attending Unavailable JAYRO BAUER, DR ELISSA Lopez Primary Care Unavailab lorri [employer] PROPERTY PRESERVATION SPECIALIST-RESOURCE CONSERVATION MANAGER, RADHA M Admitting Unavail able LORIN CEDENO, REINIER Attending Unavailable JAYRO BAUER, DR ELISSA Lopez Primary Care Unavailab lorri [facility] WERO BAUER Attending Unavailable JAYRO BAUER, DR ELISSA Lopez Primary Care Unavailab Elissa Garcia Primary Care Provider [phone] MIKAYLA FRAZIER Attending Unavailable HORACIO FRAZIERA Referring Unavailable JAYRO, ELISSA Primary Care Unavailable MIKAYLA FRAZIER Attending Unavailable JAYRO, ELISSA Primary Care Unavailable MIKAYLA FRAZIER Attending Unavailable JAYRO, ELISSA Primary Care Unavailable HORACIO FRAZIERA Attending Unavailable JAYRO, ELISSA Primary Care Unavailable BONITA, MIKAYLA Attending Unavailable BONITA, MIKAYLA Referring Unavailable JAYRO, ELISSA Primary Care Unavailable HORACIO FRAZIERA Attending Unavailable JAYRO, ELISSA Primary Care Unavailable CARLTON SALVADOR Attending Unavailable HUMBERTOKESHEKHARCARLTON Referring Unavailable JAYRO, ELISSA Primary Care Unavailable BONITA, MIKAYLA Attending Unavailable JAYRO, ELISSA Primary Care Unavailable ZUPKE, CARLTON Attending Unavailable ZUPKE, CARLTON Referring Unavailable JAYRO, ELISSA Primary Care Unavailable BONITA, MIKAYLA Attending Unavailable JAYRO, ELISSA Primary Care Unavailable BONITA, MIKAYLA Attending Unavailable JAYRO, ELISSA Primary Care Unavailable BONITA, MIKAYLA Attending Unavailable JAYRO, ELISSA Primary Care Unavailable Romero, Kimberly S Unavailable Unavailable GUERDA CDEENO, LENNY Godoy Attending Unavailable JAYRO DO, DR ELISSA Lopez Primary Care Unavailab lorri GALVEZ DO, DR CUELLAR Attending Unavailable MADDISON TODD-ARNOLDO MOLINA Admitting Unavai lable JAYRO DO, DR ELISSA Lopez Primary Care Unavailab lorri Herndon MD, Allen Diaz Unavailable [phone] NONE, NONE Unavailable Unavailable Jayro DO, Elissa A Unavailable Jayro, Elissa Primary Care Unavailable Rowe VOYAGE MANAGEMENT SYSTEM OPERATOR, Mary Attending Unavailable Rowe VOYAGE MANAGEMENT SYSTEM OPERATOR, Mary Referring Unavailable Jayro, Elissa Primary Care Unavailable Rowe VOYAGE MANAGEMENT SYSTEM OPERATOR, Mary Attending Unavailable Rowe VOYAGE MANAGEMENT SYSTEM OPERATOR, Mary Referring Unavailable Jayro, Elissa Attending Unavailable Jayro, Elissa Referring Unavailable Jayro, Elissa Primary Care Unavailable Frankie Stout Attending Unavailable Jyaro, Elissa Primary Care Unavailable Antonette Huffman Attending Unavailable Jayro, Elissa Primary Care Unavailable Jayro, Elissa Primary Care Unavailable Rowe VOYAGE MANAGEMENT SYSTEM OPERATOR, Mary Attending Unavailable Jayro, Elissa Referring Unavailable Jayro, Elissa Primary Care Unavailable HuffmanAntonette Attending Unavailable Jennifer Servin Attending Unavailable Jayro, Elissa Primary Care Unavailable Jayro, Elissa Referring Unavailable Jae VOYAGE MANAGEMENT SYSTEM OPERATOR, Mary Attending Unavailable Jayro, Elissa Referring Unavailable Jayro, Elissa Primary Care Unavailable Antonette Huffman Attending Unavailable Jayro, Elissa Primary Care Unavailable Antonette Huffman Attending Unavailable Jayro, Elissa Primary Care Unavailable Jayro, Elissa Primary Care Unavailable Jennifer Servin Attending Unavailable Jayro, Elissa Referring Unavailable Antonette Huffman Attending Unavailable Jayro, Elissa Primary Care Unavailable Antonette Huffman Attending Unavailable Jayro, Elissa Primary Care Unavailable Arnoldo Serrano Attending Unavailable Jayro, Elissa Primary Care Unavailable Allergies Allergy Classification Reported Allergen(s) Allergy Type Date of Onset Reaction(s) Facility Adhesive Tape (3 sources) Adhesive Tape Substance Allergy 02-04-20 21 Rash [facility] Angiotensin Converting Enzyme (KENYA) Inhibitors (3 sources) Lisinopril Drug Allergy 02-04-20 21 Hives [facility] Lincosamides (antibiotic) (3 sources) Clindamycin Drug Allergy 10-09-19 19 Hives, Rash [facility] liraglutide (3 sources) liraglutide Drug Allergy 07-21-20 15 Other (See Comments) [facility] Metoprolol (3 sources) Metoprolol Drug Allergy 01-01-20 21 Hives, Other (See Comments) [facility] Opioid Agonists (3 sources) Propoxyphene Drug Allergy 10-09-19 19 Other (See Comments) [facility] rivaroxaban (3 sources) rivaroxaban Drug Allergy 02-04-20 21 [facility] Unclassified (1 source) Other Propensity to adverse reactions 10-09-19 19 Anaphylaxis, Other (See Comments) [facility] (16 sources) acetaminophen / propoxyphene; Translations: [acetaminophen-pr opoxyphene] drug allergy Troubles breathing [facility] Work Phone: (20 sources) Adhesive Tape drug allergy 02-04-20 Rash [facility] Work Phone: (20 sources) Angiotensin Converting Enzyme (Kenya) Inhibitors; Translations: [KENYA Inhibitors] drug allergy 10-23-19 Cough [facility] Work Phone: (20 sources) clindamycin; Translations: [clindamycin] drug allergy 10-09-19 19 Hives, Rash [facility] Work Phone: Comment on above: rash (6 sources) liraglutide drug allergy 07-21-20 15 Nausea, diarrhea [facility] Work Phone: (20 sources) liraglutide Drug Allergy 07-21-20 15 Other (See Comments) [facility] (20 sources) Lisinopril; Translations: [lisinopril] Drug Allergy 02-04-20 21 Hives [facility] (20 sources) Metoprolol; Translations: [metoprolol] Drug Allergy 01-01-20 21 Hives, Other (See Comments) [facility] Comment on above: 04/13/25 - pt reports that she took medication a couple years ago without complications, but stopped due to family history my sister hadcancer and , I heard that metoprolol can cause cx (20 sources) Propoxyphene Drug Allergy 10-09-19 19 Other (See Comments) [facility] (15 sources) rivaroxaban Drug Allergy 02-04-20 21 [facility] (13 sources) Propoxyphene; Translations: [propoxyphene napsylate] Drug Allergy 10-23-19 22 Unknown [facility] (12 sources) repaglinide Drug Allergy 10-23-19 22 Back Pain, PULIDO, Nausea [facility] (10 sources) Adhesive Tape Drug allergy [facility] (10 sources) rivaroxaban; Translations: [rivaroxaban] Drug Allergy [facility] (20 sources) liraglutide Drug Allergy 07-21-20 15 [facility] (20 sources) Lisinopril Propensity to adverse reactions 02-04-20 21 Hives [facility] (20 sources) rivaroxaban Drug Allergy 02-04-20 21 [facility] (20 sources) Wound Dressing Adhesive Drug Allergy 08-21-20 22 [facility] (1 source) Acetaminophen / Propoxyphene; Translations: [acetaminophen-pr opoxyphene] Drug Allergy [facility] Comment on above: 04-13-25 - pt unsure of reaction (1 source) rivaroxaban; Translations: [rivaroxaban] Drug Allergy [facility] Comment on above: 04/13/25 - Pt states that she has never taken xarelto, but was 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 (2 sources) Penicillin V Drug Allergy 08-22-[address] [facility] (2 sources) PLANT POLLENS Allergy to substance (disorder) 08-22-[address] [facility] (1 source) liraglutide Drug Allergy 06-02-20 [facility] Rep[facility] (1 source) Metoprolol Drug Allergy 06-02-20 [facility] (1 source) repaglinide Drug Allergy 06-02-20 [facility] Repository NEGATED: Highlighted row has been ruled out!Unclassified (17 sources) Other Propensity to adverse reactions 10-09-19 19 Anaphylaxis, Other (See Comments) [facility] Medications Current Medications Medication Drug Class(es) Dates Sig (Normalized) Sig (Original) (CREATINE) POWD (2 sources) creatine (bulk) 100 % powder Take dissolved in water once a day active Chelly Aguilar AT [facility] acetaminophen 325 mg / HYDROcodone bitartrate 5 mg oral tablet (15 sources) Opioid Agonist Start: 10-12-2023 End: 10-15-2023 take 1 tablet by mouth every six hours as needed for pain [facility] 325- 5 mg oral tablet Dose = 1 tab(s), Oral, q6h, PRN as needed for pain, X 3 day(s), # 12 tab(s), 0 Refill(s), Back pain, 109.1 Start Date: 10/12/23 Stop Date: 10/15/23 Status: Ordered Start: 04-30-2023 End: 07-18-2023 take 1 tablet by mouth every six hours as needed Hydrocodone-Acetaminophen Discontinued 1 TABLET PO EVERY 6 HOURS NEEDED 10 April 30, 2023 July 18, 2023 9:06am Start: 12-08-2016 End: 09-07-2017 Hydrocodone-Acetaminophen Di scontinued 1 EACH PO Q4H December 07, 2016 11:00pm September 07, 2017 2:27pm acetaminophen 325 mg / oxyCODONE hydrochloride 5 mg oral tablet (20 sources) Opioid Agonist Start: 07-14-2025 End: 07-21-2025 oxycodone-acetaminophen 5 mg-325 mg tablet Take 1 tablet by mouth every six hours as needed for pain active - Allen Herndon MD, [address] [facility], [place] [address] Presence of right artificial knee joint [facility] Start: 02-16-2022 oxyCODONE-acet aminophen (PERCOCET) 5-325 MG per tablet 1 tablet Start: 02-15-2022 End: 02-22-2022 oxyCODONE-acetaminophen (PER COCET) 5-325 MG per tablet Indications: Morbid obesity with BMI of 45.0-49.9, adult (HCC) Take 1 tablet by mouth every 6 hours as needed for Pain for up to 7 days. Intended supply: 7 days. Take lowest dose possible to manage pain 28 tablet 0 02/15/2022 02/22/2022 Active Start: 03-09-2015 End: 10-29-2015 take 1 tablet by mouth four times daily as needed for pain OXYCODONE-ACETAMINOPHEN 5-325 MG TABS On e tablet by mouth four times daily as needed for pain OXYCODONE-ACETAMINOPHEN [id number] Elissa Dial DO albuterol 0.83 mg/ml inhalation solution (20 sources) beta2-Adrenergic Agonist Start: 02-16-2022 albut errol (PROVENTIL) nebulizer solution 2.5 mg Start: 06-08-2020 take 0.63 mg by inha lation every six hours Albuterol Sulfate Active 0.63 MG INHALATION EVERY 6 HOURS June 07, 2020 11:00pm Start: 10-22-2019 take 2 puff(s) by in halation every four hours as needed for wheezing Ventolin HFA MDI (90 mcg/inh) inhalation aerosol 2 puff(s), Inhalation, q4h, PRN as needed for wheezing, 0 Refill(s) Start Date: 10/22/19 Status: Ordered Repeat number: 1 Start: 10-22-2019 take 2 puff(s) by in halation every four hours as needed for wheezing Ventolin HFA MDI (90 mcg/inh) inhalation aerosol 2 puff(s), Inhalation, q4h, PRN as needed for wheezing, 0 Refill(s) Start Date: 10/22/19 Status: Ordered Start: 10-22-2019 take 1 puff(s) by in halation four times daily as needed for wheezing Ventolin HFA MDI (90 mcg/inh) inhalation aerosol 1 puff(s), Inhalation, QID, PRN as needed for wheezing, # 18 gram(s), 0 Refill(s) Start Date: 10/22/19 Status: Ordered Start: 10-22-2019 take 2 puff(s) by in halation every four hours as needed for wheezing Albuterol Sulfate (VENTOLIN HFA IN) 2 puff(s), Inhalation, q4h, PRN as needed for wheezing, 0 Refill(s) 10/22/2019 Active Start: 10-22-2019 take 2 puff(s) by in halation every four hours as needed for wheezing Albuterol Sulfate (VENTOLIN HFA IN) 2 puff(s), Inhalation, q4h, PRN as needed for wheezing, 0 Refill(s) 0 10/22/2019 Active Start: 05-28-2019 take 1 puff(s) by in halation every six hours Albuterol Sulfate (Ventolin Hfa) 90 mcg/actuation HFA aerosol inhaler Active 2 PUFF INHALATION EVERY 6 HOURS May 27, 2019 11:00pm Start: 04-27-2017 ALBUTEROL SULF ATE (2.5 MG/3ML) 0.083% NEBU as directed ALBUTEROL SULFATE [id number] Bernard Sharp MD Start: 03-05-2015 PROAIR HFA 108 (90 Base) MCG/ACT AERS 2 puffs when needed ALBUTEROL SULFATE [id number] Elissa Dial DO Start: 03-05-2015 PROAIR HFA 108 (90 Base) MCG/ACT AERS 2 puffs every 4 hours as needed ALBUTEROL SULFATE [id number] Kimberly A Filous Start: 03-05-2015 PROAIR HFA 108 (90 Base) MCG/ACT AERS 2 puffs every 4 hours as needed ALBUTEROL SULFATE [id number] Kimberly A Filous Start: 03-05-2015 PROAIR HFA 108 (90 Base) MCG/ACT AERS 2 puffs when needed ALBUTEROL SULFATE [id number] Elissa Dial DO Start: 03-05-2015 PROAIR HFA 108 (90 Base) MCG/ACT AERS 2 puffs every 4 hours as needed ALBUTEROL SULFATE [id number] Elissa Dial DO Start: 02-09-2014 End: 05-28-2020 take 1 puff(s) by inhalation every four hours as needed Albuterol Sulfate Discontinued 2 PUFF INHALATION EVERY 4 HOURS NEEDED February 09, 2014 10:46am May 28, 2020 9:32am Start: 02-09-2014 End: 05-28-2020 take 1 puff(s) by inhalation every four hours as needed Albuterol Sulfate Discontinued 2 PUFF INHALATION EVERY 4 HOURS NEEDED February 08, 2014 11:00pm May 28, 2020 8:32am albuterol 0.833 mg/ml / ipratropium bromide 0.167 mg/ml inhalation solution (1 source) Anticholinergic, beta2-Adrenergic Agonist Start: 07-18-2023 take 1 mL by inhalation every four hours as needed Ipratropium-Albuterol Active 3 ML INHALATION EVERY 4 HOURS NEEDED 180 July 17, 2023 11:00pm amLODIPine 5 mg oral tablet (3 sources) Dihydropyridine Calcium Channel [place] Start: 04-13-2025 amLODIPine 5 mg oral tablet Dose : 5 mg = 1 tab(s), Oral, qDay, # 30 tab(s), 0 Refill(s) Start Date: 04/13/25 Status: Ordered Quantity: 30.0 Unit: tab(s) Repeat number: 1 atorvastatin 40 mg oral tablet (20 sources) HMG-CoA Reductase Inhibitor Start: 07-18-2023 Atorvastatin Active MG PO July 17, 2023 11:00pm Start: 04-19-2022 Lipitor 40 mg oral tablet Dose : 40 mg = 1 tab(s), Oral, qDay Start Date: 04/19/22 Status: Ordered Repeat number: 1 Start: 11-15-2020 End: 05-31-2021 take 40 mg by mouth at bedtime Atorvastatin Discontinu ed 40 MG PO AT BEDTIME March 29, 2021 10:11am May 26, 2021 2:40pm Start: 06-08-2020 End: 03-29-2021 take 10 mg by mouth at bedtime Atorvastatin Discontinu ed 10 MG PO AT BEDTIME June 08, 2020 10:37am March 29, 2021 10:18am Start: 10-30-2019 atorvastatin 2 0 mg oral tablet Dose : 10 mg = 0.5 tab(s), Oral, qPM, # 30 tab(s), 0 Refill(s) Start Date: 10/30/19 Status: Ordered Start: 09-30-2015 End: 06-08-2020 take 40 mg by mouth at bedtime Atorvastatin Discontinu ed 40 MG PO AT BEDTIME December 03, 2016 11:00pm June 08, 2020 10:44am BiPAP Machine MISC (9 sources) BiPAP Machine OR SC Indications: Obstructive Sleep Apnea Syndrome by Does not apply route nightly Indications: Obstructive Sleep Apnea Syndrome MITZI 16/10 cm 0 Active BiPAP Machine OR SC by Does not apply route nightly MITZI 16/10 cm 0 Active budesonide 0.5 mg/ml inhalation suspension (1 source) Corticosteroid Start: 07-18-2023 take 1 mg by inhalation twice daily Budesonide Active 1 MG INHALATION TWICE A DAY 60 July 17, 2023 11:00pm busPIRone hydrochloride 5 mg oral tablet (3 sources) Start: 04-13-2025 busPIRone 5 mg oral tablet Dose : 5 mg = 1 tab(s), Oral, BID, 0 Refill(s) Start Date: 04/13/25 Status: Ordered Repeat number: 1 calcium carbonate 500 mg chewable tablet (5 sources) Start: 02-23-2022 take 1 tablet by mouth three times daily calcium carbonate (TUMS) 500 MG chewable tablet Take 1 tablet by mouth 3 times daily 0 02/23/2022 Active Calcium Citrate (1 source) Start: 05-22-2022 take 1 tablet by mouth three times daily CALCIUM CITRATE PO Take 1 tablet by mouth 3 times daily 0 05/22/2022 Active cefuroxime 500 mg oral tablet (1 source) Cephalosporin Antibacterial Start: 04-14-2025 End: 04-23-2025 cefuroxime 500 mg oral tablet Dose : 500 mg = 1 tab(s), Oral, BID, X 9 day(s), # 18 tab(s), 0 Refill(s), 04/23/25 8:00:00 AM EDT, Pharmacy: [facility]/pharmacy #[id number], 160, cm, 04/13/25 11:03:00 EDT, Height, 104.2, kg, 04/13/25 11:03:00 EDT, Dosing Weight Start Date: 04/14/25 Stop Date: 04/23/25 Status: Ordered Quantity: 18.0 Unit: tab(s) Repeat number: 1 cephalexin 500 mg oral capsule (14 sources) Cephalosporin Antibacterial Start: 11-01-2024 End: 11-11-2024 cephalexin 500 mg oral capsule Dose : 500 mg = 1 cap(s), Oral, q8h, # 30 cap(s), 0 Refill(s), 11/11/24 2:46:00 AM EST, 102.8 Start Date: 11/01/24 Stop Date: 11/11/24 Status: Ordered Quantity: 30.0 Unit: cap(s) Repeat number: 1 Start: 12-25-2019 take 1 capsule by mo ut four times daily cephalexin 500 mg oral capsule take 1 capsule by mouth four times a day until finished Start Date: 12/25/19 Status: Ordered Start: 12-13-2017 End: 12-23-2017 take 500 mg by mouth every six hours Cephalexin Discontinued 500 MG PO EVERY 6 HOURS December 12, 2017 11:00pm December 23, 2017 8:37am cholecalciferol 0.125 mg oral capsule (8 sources) Vitamin D Start: 12-17-2023 take 1 capsule by mouth once daily cholecalciferol 125 MCG (5000 UT) capsule Take 1 capsule (5,000 Units) by mouth daily. 30 capsule 3 12/17/2023 Active cholecalciferol 9.52 unt/ml / glucose 357 mg/ml oral gel (1 source) Vitamin D Start: 02-15-2022 15 g, Oral, PRN, Starting on Sun02/15/22 at 1556, Until Discontinued, Low blood sugar If blood glucose less than 50 mg/dL and patient ALERT and NOT NPO, give 2 tubes glucose gel. If blood glucose less than 70 mg/dL and patient ALERT and NOT NPO, give 1 tube glucose gel. Repeat blood glucose in 15 minutes. If blood glucose is less than 70 mg/dL, repeat treatment and recheck blood glucose in 15 minutes x2 and notify provider. ciprofloxacin 500 mg oral tablet (20 sources) Quinolone Antimicrobial Start: 04-09-2022 End: 04-19-2022 ciprofloxacin 500 mg oral tablet Dose : 500 mg = 1 tab(s), PO, q12hr, X 10 day(s), # 20 tab(s), 0 Refill(s), 04/19/22 7:08:00 EDT, 127.8 Start Date: 04/09/22 Stop Date: 04/19/22 Status: Ordered Start: 12-04-2016 End: 09-07-2017 take 250 mg by mouth twice daily Ciprofloxacin Hcl Discontinued 250 MG PO TWICE A DAY December 07, 2016 11:00pm September 07, 2017 2:27pm CPAP Machine MISC (9 sources) CPAP Machine MIS C 11 cm by Does not apply route nightly MITZI 0 Active D-Mannose 500 MG CAPS (3 sources) take 1 capsule by mouth once D-Mannose 500 MG CAPS Take by mouth 0 Active diazePAM 10 mg oral tablet (20 sources) Benzodiazepine diazePAM (Valium ) 10 MG tablet Take by mouth every 8 hours as needed. Active DULoxetine 60 mg delayed release oral capsule (11 sources) Serotonin and Norepinephrine Reuptake Inhibitor Start: DULoxetine 60 mg oral delayed release capsule Dose : 60 mg = 1 cap(s), Oral, qDay, 0 Refill(s) Start Date: 04/13/25 Status: Ordered Repeat number: 1 Start: 01-02-2024 take 1 capsule by mo [facility] once daily DULoxetine (Cymbalta) [address] capsule Take 30 mg by mouth daily. 01/02/2024 Active duloxetine 60 mg capsule,delayed release Take 1 once a day active Chelly Aguilar AT [facility] fenofibrate 160 mg oral tablet (20 sources) Peroxisome Proliferator Receptor alpha Agonist Start: 02-09-2014 End: 07-18-2023 fenofibrate 160 mg oral tablet Dose : 160 mg = 1 tab(s), Oral, qPM, # 90 tab(s), 0 Refill(s) Start Date: 10/22/19 Status: Ordered Quantity: 90.0 Unit: tab(s) Repeat number: 1 Flintstones Complete oral tablet, chewable (9 sources) Start: 04-19-2022 take 1 tablet by mouth once daily Flintstones Complete oral tablet, chewable Dose = 1 tab(s), Oral, qDay Start Date: 04/19/22 Status: Ordered Repeat number: 1 Start: 04-19-2022 take 1 tablet by [facility] once daily Flintstones Complete oral tablet, chewable Dose = 1 tab(s), Oral, qDay Start Date: 04/19/22 Status: Ordered FLUoxetine 40 mg oral capsule (16 sources) Serotonin Reuptake Inhibitor Start: 09-27-2023 take 2 capsules by mouth once daily FLUoxetine (PROzac) 40 MG capsule Take 80 mg by mouth daily. 09/27/2023 Active furosemide 20 mg oral tablet (20 sources) Loop Diuretic Start: 04-13-2025 furosemide 20 mg oral tablet Dose : 20 mg = 1 tab(s), Oral, qDay, PRN Swelling, # 30 tab(s), 0 Refill(s) Start Date: 04/13/25 Status: Ordered Quantity: 30.0 Unit: tab(s) Repeat number: 1 Start: 11-01-2024 Lasix 20 mg or al tablet Dose : 20 mg = 1 tab(s), Oral, qDay, # 30 tab(s), 0 Refill(s) Start Date: 11/01/24 Status: Ordered Quantity: 30.0 Unit: tab(s) Repeat number: 1 Start: 11-16-2019 Lasix 40 mg or al tablet Dose : 40 mg = 1 tab(s), Oral, qDay, # 30 tab(s), 0 Refill(s), Pharmacy: [address], 162.6, cm, 11/14/19 12:59:00 EST, Height, kg, 11/14/19 12:59:00 EST, Dosing Weight Start Date: 11/16/19 Status: Ordered Start: 12-13-2017 End: 05-26-2021 take 20 mg by mouth once daily Furosemide Discontinued 20 MG PO DAILY March 29, 2021 10:12am May 26, 2021 2:42pm gabapentin 100 mg oral capsule (20 sources) Anti-epileptic Agent Start: 01-28-2021 Neurontin 100 mg oral capsule Dose : 100 mg = 1 cap(s), Oral, TID, 106 Start Date: 04/19/22 Status: Ordered Repeat number: 1 Start: 05-28-2020 End: 06-08-2020 take 100 mg by mouth once daily Gabapentin Discontinue d 100 MG PO DAILY May 27, 2020 11:00pm June 08, 2020 10:40am Start: 11-14-2019 gabapentin 300 mg oral capsule Dose : 300 mg = 1 cap(s), Oral, TID, # 60 cap(s), 0 Refill(s), 136.5 Start Date: 11/14/19 Status: Ordered Start: 03-05-2015 End: 10-29-2015 take 1 tablet by mouth three times daily as needed for pain NEURONTIN 400 MG CAPS One tablet by mouth up to three times a day as needed for shingles pain GABAPENTIN [id number] Elissa Dial DO Start: 03-05-2015 take 1 tablet by hiwot th once daily NEURONTIN 400 MG CAPS One tablet by mouth daily GABAPENTIN [id number] Elissa Dial DO Start: 03-05-2015 take 1 tablet by hiwot th once daily NEURONTIN 400 MG CAPS One tablet by mouth daily GABAPENTIN [id number] Elissa Dial DO Start: 03-05-2015 End: 10-29-2015 take 1 tablet by mouth three times daily as needed for pain NEURONTIN 400 MG CAPS One tablet by mouth up to three times a day as needed for shingles pain GABAPENTIN [id number] Elissa Dial DO 150 ml glucose 50 mg/ml injection (2 sources) Start: 02-15-2022 100 mL/hr, Int raVENous, PRN, Blood sugar less than 70mg/dL, Starting on Sun02/15/22 at 1556 Start infusion following administration of dextrose 50% or glucagon. Start: 02-15-2022 12.5 g, IntraV ENous, PRN, Starting on Sun02/15/22 at 1556, Until Discontinued, Low blood sugar, Blood glucose less than 70 mg/dL and patient NOT ALERT or NPO. If patient does not respond within 5 minutes, repeat dose x1. Start D5W at 100 mL/hour until ordering provider can be reached. Repeat blood glucose in 15 minutes. If blood glucose is less than 70 mg/dL, repeat treatment and recheck blood glucose in 15 minutes x2. hydroCHLOROthiazide 25 mg oral tablet (20 sources) Thiazide Diuretic Start: 04-13-2025 hydroCHLOROthiazide 25 mg oral tablet Dose : 25 mg = 1 tab(s), Oral, qDay, 0 Refill(s) Start Date: 04/13/25 Status: Ordered Repeat number: 1 Start: 02-09-2014 End: 06-01-2022 take 1 tablet by mouth once daily hydroCHLOROthiazide (HYDRODiuril) 25 MG tablet Indications: Hypertension Take 25 mg by mouth daily. 03/27/2022 Active hydrOXYzine hydrochloride 25 mg oral tablet (4 sources) Antihistamine hydroxyzine HCl 25 mg tablet Take 1 once a day active Chelly Aguilar AT [facility] hydrOXYzine HCl (Atarax) 25 MG tablet Take by mouth every 8 hours as needed for itching. Active insulin lispro 100 unt/ml injectable solution (3 sources) Insulin Analog Start: 02-15-2022 End: 02-16-2022 0-18 Units, SubCUTAneous, EV WALT 6 HOURS, First dose on Sun02/15/22 at 1615, Until Discontinued High Dose Corrective Algorithm Glucose: Dose: 70-139 No Insulin 140-199 &nbs p; 3 Units 200-249 6 Units 250-299 9 Units 300-349 12 Units 350-400 15 Units Over 400 18 Units Start: 02-15-2022 End: 02-15-2022 insulin lispro (HUMALOG) inj ection vial 0-18 Units 1 ml ketorolac tromethamine 30 mg/ml cartridge (1 source) Nonsteroidal Anti-inflammatory Drug, Cyclooxygenase Inhibitor Start: 02-15-2022 End: 02-17-2022 take 1 dose intravenously once daily Ketorolac is contraindicated in patients with advanced renal impairment and in patients at risk of renal failure due to volume depletion. For 65 years of age and older OR weight less than 50 kg, use 15 mg IV every 6 hours; MAX dose: 60 mg/day. Dose greater than 30 mg must be administered via intramuscular route. Do not administer for more than 5 days. 30 mg, IntraVENous, EVERY 6 HOURS, 8 doses, First dose on Sun02/15/22 at 1615, Last dose on Sun02/17/22 at 1015 Do not administer for more than 5 days. lansoprazole 30 mg delayed release oral capsule (20 sources) Proton Pump Inhibitor Start: 03-05-2015 take 1 tablet by mouth once daily PREVACID 30 MG CPDR One tablet by mouth daily LANSOPRAZOLE [id number] Elissa Dial DO Start: 02-09-2014 End: 06-01-2022 take 30 mg by mouth once daily Lansoprazole Discontinu ed 30 MG PO DAILY February 08, 2014 11:00pm June 01, 2022 7:22am losartan potassium 100 mg oral tablet (20 sources) Angiotensin 2 Receptor Baylee Start: 04-13-2025 losartan 100 mg oral tablet Dose : 100 mg = 1 tab(s), Oral, Daily, # 100 tab(s), 0 Refill(s) Start Date: 04/13/25 Status: Ordered Quantity: 100.0 Unit: tab(s) Repeat number: 1 Start: 07-18-2023 Losartan Activ e MG PO July 17, 2023 11:00pm Start: 05-31-2023 losartan 25 mg oral tablet Dose : 25 mg = 1 tab(s), Oral, qDay, # 30 tab(s), 0 Refill(s) Start Date: 05/31/23 Status: Ordered Quantity: 30.0 Unit: tab(s) Repeat number: 1 Start: 05-26-2021 End: 06-01-2022 take 50 mg by mouth once daily Losartan Discontinued 5 0 MG PO DAILY May 26, 2021 2:39pm June 01, 2022 7:23am Start: 11-15-2020 End: 05-26-2021 take 100 mg by mouth once daily Losartan Discontinued 100 MG PO DAILY March 28, 2021 11:00pm May 26, 2021 2:42pm Start: 04-05-2020 losartan (Coza ar) 100 MG tablet Indications: Hypertension Take 50 mg by mouth. 04/05/2020 Active Start: 03-05-2015 End: 03-29-2021 take 50 mg by mouth once daily Losartan Discontinued 5 0 MG PO DAILY November 30, 2016 12:00am March 29, 2021 10:12am Magnesium (20 sources) Start: 02-27-2023 take 1 capsule by mo [facility] once daily Magnesium 400 MG capsule Take 1 capsule by mouth daily. 02/27/2023 Active Start: 02-27-2023 take 1 capsule by mo ut once daily Magnesium 400 MG capsule Take 1 capsule by mouth daily. 0 02/27/2023 Active Start: 03-23-2022 take 1 tablet by hiwot once daily Magnesium 400 MG TABS Take 1 tablet by mouth daily 0 03/23/2022 Active Start: 06-09-2021 take 1 tablet by hiwot once daily Magnesium 400 MG TABS Take 1 Dose by mouth daily 0 06/09/2021 Active magnesium oxide 400 mg oral tablet (20 sources) Start: 03-23-2022 magnesium oxid e 400 mg oral tablet Dose : 400 mg = 1 tab(s), Oral, qDay Start Date: 04/19/22 Status: Ordered Repeat number: 1 meclizine hydrochloride 25 m g oral tablet (20 sources) Antiemetic Start: 10-22-2019 meclizine 25 m g oral tablet Dose : 25 mg = 1 tab(s), Oral, BID, PRN as needed for dizziness, # 30 tab(s), 0 Refill(s) Start Date: 10/22/19 Status: Ordered Quantity: 30.0 Unit: tab(s) Repeat number: 1 Start: 05-28-2019 take 25 mg by mouth three times daily Meclizine Active 25 MG PO THREE TIMES A DAY May 27, 2019 11:00pm Start: 12-14-2015 End: 12-19-2015 MECLIZINE HCL 25 MG TABS 1 t ablets two times daily as needed for vertigo MECLIZINE HCL [id number] Elissa Dial DO metFORMIN hydrochloride 500 mg oral tablet (20 sources) Biguanide Start: 04-13-2025 MetFORMIN (Eqv -Glucophage XR) 500 mg oral tablet, EXTENDED RELEASE Dose : 500 mg = 1 tab(s), Oral, BID, # 90 tab(s), 0 Refill(s) Start Date: 04/13/25 Status: Ordered Quantity: 90.0 Unit: tab(s) Repeat number: 1 Start: 07-04-2024 End: 10-02-2024 take 1 tablet by mouth every twenty-four hours in the morning metFORMIN XR (Glucophage-XR) 500 MG 24 hr tablet Indications: Type 2 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 without complication, without long-term current use of insulin (CMS/HCC) (HCC) Take 1 tablet (500 mg) by mouth in the morning and 1 tablet (500 mg) at noon. Do not crush, chew, or split.. 180 tablet 07/04/2024 10/02/2024 Active Start: 06-01-2022 End: 07-18-2023 take 500 mg by mouth twice daily at mealtime Metformin Discontinued 500 MG PO TWICE DAILY WITH MEALS June 01, 2022 7:23am July 18, 2023 9:06am Start: 04-20-2022 End: 12-12-2023 metFORMIN 500 mg oral tablet (IR) Dose : 500 mg = 1 tab(s), Oral, BID, # 60 tab(s), 0 Refill(s), Pharmacy: [facility] #[id number], 162.5, cm, 04/18/22 17:52:00 EDT, Height Start Date: 04/20/22 Status: Ordered Quantity: 60.0 Unit: tab(s) Repeat number: 1 Start: 04-20-2022 metFORMIN (Glu cophage) 500 MG tablet Indications: Type 2 Diabetes Mellitus 500 mg. 0 04/20/2022 Active Start: 11-29-2020 metFORMIN (GLU COPHAGE) 1000 MG tablet Indications: Diabetes Mellitus Take 500 mg by mouth 2 times daily Indications: Diabetes Diabetes 0 11/29/2020 Active Start: 06-03-2013 End: 06-01-2022 take 1000 mg by mouth twice daily at mealtime Metformin Discontinued 1000 MG PO TWICE DAILY WITH MEALS February 08, 2014 11:00pm June 01, 2022 7:26am metroNIDAZOLE 500 mg oral tablet (1 source) Nitroimidazole Antimicrobial Start: 04-09-2022 End: 04-19-2022 metroNIDAZOLE 500 mg oral tablet Dose : 500 mg = 1 tab(s), Oral, TID, X 10 day(s), # 30 tab(s), 0 Refill(s), 04/19/22 7:09:00 EDT, 127.8 Start Date: 04/09/22 Stop Date: 04/19/22 Status: Ordered mirtazapine 7.5 mg oral tablet (1 source) Start: 04-13-2025 mirtazapine 7.5 mg oral tablet Dose : 7.5 mg = 1 tab(s), Oral, qHS, 0 Refill(s) Start Date: 04/13/25 Status: Ordered Repeat number: 1 morphine sulfate (PF) injection 2 mg (1 source) Start: 02-15-2022 morphine sulfate (PF) injection 2 mg Multiple Vitamins-Iron (MULTIVITAMIN/IRON PO) (6 sources) Start: 06-09-2021 take 1 tablet by mouth once daily Multiple Vitamins-Iron (MULTIVITAMIN/IRON PO) Take 1 tablet by mouth daily 0 06/09/2021 Active Multiple Vitamins-Minerals (WOMENS MULTI PO) (16 sources) Multiple Vitamins-Minerals (WOMENS MULTI PO) Take by mouth daily. Active Multiple Vitamin s-Minerals (WOMENS MULTI PO) Take by mouth daily. 0 Active nystatin 100 unt/mg topical powder (20 sources) Polyene Antifungal Start: 02-15-2023 nystatin (M ycostatin) [id number] UNIT/GM powder Indications: Cutaneous Candidiasis Apply 1 application. topically 2 times daily. Apply topically to affected area two times daily. 60 g 2 02/15/2023 Active Start: 10-02-2022 End: 10-12-2022 nystatin 100,000 units/g top ical powder Apply 1 robert, Topical, BID, X 10 day(s), # 60 gram(s), 0 Refill(s), Powder, 106 Start Date: 10/02/22 Stop Date: 10/12/22 Status: Ordered Start: 02-23-2022 End: 03-05-2022 nystatin (MYCOSTATIN) [id number] UNIT/ML suspension Take 5 mLs by mouth 3 times daily for 10 days Swish and spit three times daily x 10 days 150 mL 1 02/23/2022 03/05/2022 Active Start: 08-24-2021 End: 09-26-2022 Nystatin Discontinued 1 APPL IC TOPICAL TWICE A DAY September 26, 2022 12:00am September 26, 2022 3:52pm Start: 05-28-2019 End: 03-10-2020 Nystatin Discontinued 1 APPL IC TOPICAL TWICE A DAY 07 04May 27, 2019 11:00pm March 10, 2020 8:59am apply peasized amount as instructed ondansetron 8 mg disintegrating oral tablet (20 sources) Serotonin-3 Receptor Antagonist Start: 12-31-2023 End: 02-29-2024 take 1 tablet by mouth every eight hours as needed for nausea ondansetron ODT (Zofran-ODT) 8 MG disintegrating tablet Indications: S/P bariatric surgery , Nausea Take 1 tablet (8 mg) by mouth every 8 hours as needed for nausea or vomiting. 60 tablet 0 12/31/2023 02/29/2024 Active Start: 10-12-2023 End: 10-16-2023 ondansetron 4 mg oral tablet , disintegrating Dose : 4 mg = 1 tab(s), Oral, q6h, X 4 day(s), # 16 tab(s), 0 Refill(s), 10/16/23 5:42:00 AM EST Start Date: 10/12/23 Stop Date: 10/16/23 Status: Ordered Start: 04-14-2022 Zofran 8 mg or al tablet Dose : 8 mg = 1 tab(s), Oral, q8h, PRN Nausea/Vomiting Start Date: 04/19/22 Status: Ordered Repeat number: 1 Start: 04-09-2022 End: 04-12-2022 ondansetron 4 mg oral tablet , disintegrating Dose : 4 mg = 1 tab(s), Oral, q8h, PRN as needed for nausea/vomiting, X 3 day(s), # 10 tab(s), 0 Refill(s), 04/12/22 7:09:00 EDT Start Date: 04/09/22 Stop Date: 04/12/22 Status: Ordered Start: 02-15-2022 4 mg, IntraVEN ous, EVERY 6 HOURS PRN, Starting on Sun02/15/22 at 1556, Until Discontinued, Nausea, Post-op Start: 02-15-2022 take 1 tablet by hiwot th every eight hours as needed for nausea ondansetron (ZOFRAN) 4 MG tablet Take 1 tablet by mouth every 8 hours as needed for Nausea or Vomiting 20 tablet 0 03/23/2022 Active Start: 10-04-2015 End: 04-25-2017 ZOFRAN 4 MG TABS every 8 boyd rs as needed ONDANSETRON HCL [id number] Rosy Suarez RN Start: 10-04-2015 End: 04-25-2017 ZOFRAN 4 MG TABS every 8 boyd rs as needed ONDANSETRON HCL [id number] Rosy Suarez RN pediatric multivitamin-iron (Flintstones Complete) tablet chewable split tablet (20 sources) Start: 04-19-2022 pediatric mult ivitamin-iron (Flintstones Complete) tablet chewable split tablet Indications: Vitamin Deficiency 04/19/2022 Active Start: 04-19-2022 pediatric mult ivitamin-iron (Flintstones Complete) tablet chewable split tablet Pediatric Multivitamins-Iron (CHILDRENS MULTIVITAMIN/IRON PO) (6 sources) Start: 02-23-2022 take 1 tablet by mouth once daily Pediatric Multivitamins-Iron (CHILDRENS MULTIVITAMIN/IRON PO) Take 1 tablet by mouth daily 0 02/23/2022 Active potassium bicarbonate 25 meq effervescent oral tablet (1 source) Start: 04-20-2022 End: 04-21-2022 Effer-K 25 mEq oral tablet, effervescent Dose : 50 mEq = 2 tab(s), Oral, qDay, # 14 tab(s), 0 Refill(s), 04/21/22 16:40:00 EDT, Pharmacy: [facility] #[id number], 162.5, cm, 04/18/22 17:52:00 EDT, Height Start Date: 04/20/22 Stop Date: 04/21/22 Status: Ordered potassium chloride 20 meq extended release oral tablet (20 sources) Start: 07-18-2023 Potassium Chlo ride Active MEQ PO July 17, 2023 11:00pm Start: 05-31-2023 Potassium Chlo ride (Eqv-K-Tab) 20 mEq oral tablet, extended release Dose : 20 mEq = 1 tab(s), Oral, BID, Take with food., # 60 tab(s), 0 Refill(s) Start Date: 05/31/23 Status: Ordered Quantity: 60.0 Unit: tab(s) Repeat number: 1 Start: 03-23-2022 take 1 tablet by hiwot th in the morning potassium chloride CR (Klor-Con M20) 20 MEQ ER tablet Take 1 tablet by mouth in the morning and 1 tablet before bedtime. 03/23/2022 Active Start: 05-28-2020 End: 06-08-2020 take 8 mEq by mouth once daily Potassium Chloride Disc ontinued 8 MEQ PO DAILY May 27, 2020 11:00pm June 08, 2020 10:42am Start: 11-16-2019 K-Tab 8 mEq or al tablet, extended release Dose : 8 mEq = 1 tab(s), Oral, qDay, take with food., # 30 tab(s), 0 Refill(s), Pharmacy: [facility] [id number] [facility], 162.6, cm, 11/14/19 12:59:00 EST, Height, kg, 11/14/19 12:59:00 EST, Dosing Weight Start Date: 11/16/19 Status: Ordered Start: 12-22-2017 End: 05-28-2019 take 20 mEq by mouth twice daily Potassium Chloride Discontinued 20 MEQ PO TWICE A DAY December 21, 2017 11:00pm May 28, 2019 10:04am Start: 10-04-2015 End: 10-14-2015 take 1 tablet by mouth twice daily POTASSIUM CHLORIDE CONOR ER 20 MEQ CR-TABS One tablet by mouth twice daily POTASSIUM CHLORIDE CONOR CR [id number] Elissa Dial DO predniSONE 20 mg oral tablet (2 sources) Start: 04-09-2024 End: 04-21-2024 take 1 tablet by mouth once daily prednisone 20mg tab (TAPER) Taper 60-40-20 mg x 4 days each dose, Oral, Daily, X 9 day(s), # 24 tab(s), 0 Refill(s), 04/18/24 12:23:00 AM EDT Start Date: 04/09/24 Stop Date: 04/18/24 Status: Ordered Respiratory Therapy Supplies (CareTouch CPAP & BIPAP Hose) misc (20 sources) Respiratory Ther apy Supplies (CareTouch CPAP & BIPAP Hose) misc Indications: Obstructive Sleep Apnea Syndrome Active Respiratory Ther apy Supplies (CareTouch CPAP & BIPAP Hose) misc rOPINIRole 3 mg oral tablet (20 sources) Nonergot Dopamine Agonist Start: 06-03-2013 rOPINIRole 3 mg oral tablet Dose : 9 mg = 3 tab(s), Oral, qHS Start Date: 06/03/13 Status: Ordered Repeat number: 1 saccharomyces boulardii 250 mg oral capsule (4 sources) Saccharomyces mariah ulardii (PROBIOTIC) 250 MG CAPS Take by mouth 0 Active Semaglutide (1 source) Start: 07-18-2023 Semaglutide (O zempic) 0.25 mg or 0.5 mg (2 mg/3 mL) pen injector Active MG SC July 17, 2023 11:00pm sertraline 50 mg oral tablet (20 sources) Serotonin Reuptake Inhibitor Start: 02-16-2022 sertraline (ZOLOFT) tablet 100 mg Start: 11-30-2016 take 200 mg by mouth once luis fernando y Sertraline Active 200 MG PO DAILY November 30, 2016 12:00am Start: 09-29-2015 End: 02-15-2023 Zoloft 100 mg oral tablet Do se : 200 mg = 2 tab(s), Oral, qAM, 0 Refill(s) Start Date: 11/29/15 Status: Ordered Repeat number: 1 Start: 09-29-2015 End: 12-12-2023 take 2 tablets by mouth once daily SERTRALINE HCL 100 MG TABS Two tablets by mouth daily SERTRALINE HCL [id number] Lillian Guzman NP Tirzepatide (Mounjaro) 5 MG/0.5ML solution pen-injector (20 sources) Start: 01-09-2024 Tirzepatide (M ounjaro) 5 MG/0.5ML solution pen-injector Indications: Type 2 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 without complication, without long-term current use of insulin (CMS/HCC) ([facility]) Inject 5 mg under the skin every 7 days. 2 mL 01/09/2024 Active Start: 01-09-2024 Tirzepatide (M ounjaro) 5 MG/0.5ML solution pen-injector Indications: Type 2 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 without complication, without long-term current use of insulin (CMS/HCC) ([facility]) Inject 5 mg under the skin every 7 days. 2 mL 0 01/09/2024 Active Start: 01-09-2024 End: 02-08-2024 Tirzepatide (Mounjaro) 5 MG/ 0.5ML solution pen-injector Indications: Type 2 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 without complication, without long-term current use of insulin (CMS/HCC) ([facility]) Inject 5 mg under the skin every 7 days. 2 mL 0 01/09/2024 02/08/2024 Active Start: 12-12-2023 End: 01-11-2024 Tirzepatide (Mounjaro) 5 MG/ 0.5ML solution pen-injector Indications: Type 2 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 without complication, without long-term current use of insulin (CMS/HCC) ([facility]) Inject 5 mg under the skin every 7 days. 2 mL 0 12/12/2023 01/11/2024 Active Start: 11-14-2023 Tirzepatide (M ounjaro) 5 MG/0.5ML solution pen-injector Indications: Type 2 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 without complication, without long-term current use of insulin (CMS/HCC) ([facility]) Inject 5 mg under the skin every 7 days. 2 mL 11/14/2023 Active Start: 11-14-2023 Tirzepatide (M ounjaro) 5 MG/0.5ML solution pen-injector Indications: Type 2 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 without complication, without long-term current use of insulin (CMS/HCC) ([facility]) Inject 5 mg under the skin every 7 days. 2 mL 0 11/14/2023 Active Start: 11-14-2023 End: 12-14-2023 Tirzepatide (Mounjaro) 5 MG/ 0.5ML solution pen-injector Indications: Type 2 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 without complication, without long-term current use of insulin (CMS/HCC) ([facility]) Inject 5 mg under the skin every 7 days. 2 mL 0 11/14/2023 12/14/2023 Active Tirzepatide (Mounjaro) 5 MG/0.5ML solution pen-injector (4 sources) Start: 01-09-2024 Tirzepatide (M ounjaro) 5 MG/0.5ML solution pen-injector Indications: Type 2 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 without complication, without long-term current use of insulin (CMS/HCC) ([facility]) Inject 5 mg under the skin every 7 days. 2 mL 01/09/2024 Active Start: 11-14-2023 Tirzepatide (M ounjaro) 5 MG/0.5ML solution pen-injector Indications: Type 2 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 without complication, without long-term current use of insulin (CMS/HCC) ([facility]) Inject 5 mg under the skin every 7 days. 2 mL 11/14/2023 Active Tirzepatide (Mounjaro) 7.5 MG/0.5ML solution pen-injector (11 sources) Start: 04-23-2024 End: 05-23-2024 Tirzepatide (Mounjaro) 7.5 MG/0.5ML solution pen-injector Indications: Type 2 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 without complication, without long-term current use of insulin (CMS/HCC) (HCC) Inject 7.5 mg under the skin every 7 days. 2 mL 1 04/23/2024 05/23/2024 Active Start: 02-27-2024 End: 04-23-2024 Tirzepatide (Mounjaro) 7.5 M G/0.5ML solution pen-injector Indications: Type 2 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 without complication, without long-term current use of insulin (CMS/HCC) (HCC) Inject 7.5 mg under the skin every 7 days. 2 mL 02/27/2024 04/23/2024 Discontinued (Reorder) Start: 02-27-2024 End: 03-28-2024 Tirzepatide (Mounjaro) 7.5 M G/0.5ML solution pen-injector Indications: Type 2 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 without complication, without long-term current use of insulin (CMS/HCC) (HCC) Inject 7.5 mg under the skin every 7 days. 2 mL 0 02/27/2024 03/28/2024 Active Start: 01-09-2024 End: 02-27-2024 Tirzepatide (Mounjaro) 7.5 M G/0.5ML solution pen-injector Indications: Type 2 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 without complication, without long-term current use of insulin (CMS/HCC) (HCC) Inject 7.5 mg under the skin every 7 days. 2 mL 0 01/09/2024 02/27/2024 Discontinued (Reorder) Start: 01-09-2024 End: 02-08-2024 Tirzepatide (Mounjaro) 7.5 M G/0.5ML solution pen-injector Indications: Type 2 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 without complication, without long-term current use of insulin (CMS/HCC) (HCC) Inject 7.5 mg under the skin every 7 days. 2 mL 0 01/09/2024 02/08/2024 Active Tirzepatide (Mounjaro) 7.5 MG/0.5ML solution pen-injector (2 sources) Start: 04-23-2024 Tirzepatide (M ounjaro) 7.5 MG/0.5ML solution pen-injector Indications: Type 2 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 without complication, without long-term current use of insulin (CMS/HCC) (HCC) Inject 7.5 mg under the skin every 7 days. 2 mL 1 04/23/2024 Active traMADol hydrochloride 50 mg oral tablet (20 sources) Opioid Agonist Start: 10-22-2019 traMADol 50 mg oral tablet Dose : 50 mg = 1 tab(s), Oral, q6h, # 12 tab(s), 0 Refill(s) Start Date: 10/22/19 Status: Ordered Quantity: 12.0 Unit: tab(s) Repeat number: 1 Start: 06-08-2015 take 1 tablet by hiwot th once daily as needed for pain TRAMADOL HCL 50 MG TABS One tablet by mouth daily as needed for knee pain TRAMADOL HCL [id number] Elissa Dial DO Start: 04-09-2014 take 50 mg by mouth every six hours as needed Tramadol Active 50 MG PO EVERY 6 HOURS NEEDED April 08, 2014 11:00pm take 1 tablet by hiwot th four times daily as needed for pain tramadol 50 mg tablet 1 tablet by mouth four times a day as needed for pain active Rachell Portillo RN [facility] [place] Vibegron (3 sources) Start: 01-08-2023 take 1 tablet by hiwot th once daily Vibegron (Gemtesa) 75 mg tablet Active 75 MG PO DAILY January 07, 2023 11:00pm Start: 01-08-2023 take 1 tablet by hiwot th once daily Vibegron (Gemtesa) 75 mg tablet Active 75 MG PO DAILY January 08, 2023 12:00am VIBEGRON (2 sources) take 1 tablet by hiwot th once daily Gemtesa 75 mg tablet 1 tablet by mouth once a day active Diana Cespedes LPN [facility] Vibegron (GEMTESA PO) (19 sources) Vibegron (GEMTES A PO) Take by mouth. Active Vibegron (GEMTES A PO) Take by mouth. 0 Active vitamin B12 (20 sources) Vitamin B12 Start: 04-19-2022 Cyanocobalamin (VITAMIN B-12 PO) Indications: Vitamin Deficiency 04/19/2022 Active Start: 04-19-2022 Cyanocobalamin (VITAMIN B-12 PO) Start: 04-19-2022 take 2 tablets by wy ut once daily Vitamin B12 2 tab(s), Oral, qDay, Unsure of dose Start Date: 04/19/22 Status: Ordered Repeat number: 1 Start: 04-19-2022 take 2 tablets by mo uth once daily Vitamin B12 2 tab(s), Oral, qDay, Unsure of dose Start Date: 04/19/22 Status: Ordered Start: 02-23-2022 Cyanocobalamin (VITAMIN B-12) [address] 2 Doses under the tongue daily 0 02/23/2022 Active Start: 02-23-2022 Cyanocobalamin (VITAMIN B-12) [address] 1 Dose under the tongue daily 0 02/23/2022 Active Start: 06-09-2021 Cyanocobalamin (VITAMIN B-12) [address] 1 Dose under the tongue daily 0 06/09/2021 Active VITAMIN D PO (20 sources) Start: 04-03-2023 VITAMIN D PO T jodi 4,000 Int'l Units by mouth daily. 04/03/2023 Active Start: 04-03-2023 VITAMIN D PO T jodi 4,000 Int'l Units by mouth daily. 0 04/03/2023 Active warfarin sodium 3 mg oral tablet (20 sources) Vitamin K Antagonist Start: 05-31-2023 warfarin 3 mg oral tablet Dose : 3 mg = 1 tab(s), Oral, Daily, 0 Refill(s) Start Date: 05/31/23 Status: Ordered Repeat number: 1 Start: 06-01-2022 take 3 mg by mouth once daily Warfarin Active 3 MG PO DAILY June 01, 2022 7:25am Start: 03-29-2021 take 1 mg by mouth once daily Warfarin Active 1 MG PO DAILY March 28, 2021 11:00pm Start: 09-20-2020 End: 03-29-2021 take 2 mg by mouth once daily Warfarin Discontinued 2 MG PO DAILY September 20, 2020 3:27pm March 29, 2021 10:18am Do not take Coumadin tonight, resume taking Coumadin tomorrow night and do blood work on Sunday morning. Start: 11-16-2019 End: 06-01-2022 take 1 tablet by mouth in the morning warfarin (Coumadin) 5 MG tablet Take 5 mg by mouth in the morning. 0 11/16/2019 Active Start: 03-05-2015 warfarin 2 mg oral tablet Dose : 2 mg = 1 tab(s), Oral, qDay, 0 Refill(s) Start Date: 04/19/22 Status: Ordered Repeat number: 1 Start: 03-05-2015 End: 04-25-2017 COUMADIN 5 MG TABS Managed b y Dr. Dial, her PCP WARFARIN SODIUM [id number] Rosy Suarez RN Start: 02-09-2014 End: 09-20-2020 take 2.5 mg by mouth once daily Warfarin Discontinued 2.5 MG PO DAILY 0 December 23, 2017 8:40am September 20, 2020 3:27pm Do not take Coumadin tonight, resume taking Coumadin tomorrow night and do blood work on Sunday morning. Completed/Discontinued Medications Medication Drug Class(es) Dates Sig (Normalized) Sig (Original) 0.25 MG, 0.5 MG Dose 3 ML semaglutide 0.68 MG/ML Pen Injector [Ozempic] (5 sources) Start: 05-31-2023 inject 0.5 mg by subcutaneous injection every week Ozempic 2 mg/3 mL (0.25 mg or 0.5 mg dose) subcutaneous solution Dose : 0.25 mg =, Subcutaneous, qWeek, rotate injection sites, # 1 EA, 0 Refill(s) Start Date: 05/31/23 Status: Ordered Quantity: 1.0 Unit: EA Repeat number: 1 Start: 05-31-2023 inject 0.5 mg by sub cutaneous injection every week Ozempic 2 mg/3 mL (0.25 mg or 0.5 mg dose) subcutaneous solution Dose : 0.25 mg =, Subcutaneous, qWeek, rotate injection sites, # 1 EA, 0 Refill(s) Start Date: 05/31/23 Status: Ordered acetaminophen 500 mg oral tablet (1 source) Start: 02-15-2022 End: 02-15-2022 acetaminophen (TYLENOL) tablet 1,000 mg ALPRAZolam 0.25 mg disintegrating oral tablet (1 source) Benzodiazepine Start: 02-15-2022 End: 02-15-2022 ALPRAZolam (NIRAVAM) dissolvable tablet 0.25 mg ascorbic acid 1000 mg oral tablet (16 sources) Start: 03-05-2015 End: 04-25-2017 take 1 tablet by mouth once daily VITAMIN C 1000 MG TABS One tablet by mouth daily ASCORBIC ACID [id number] Rosy Suarez RN take 1 tablet by mouth once luis fernando y vitamin C (ASCORBIC ACID) 500 MG tablet Take 500 mg by mouth daily 0 Active benzonatate 100 mg oral capsule (20 sources) Non-narcotic Antitussive Start: 03-05-2015 End: 09-29-2015 BENZONATATE 100 MG CAPS One tablet by mouth daily three times a day BENZONATATE [id number] Kimberly Escobedo take 1 capsule by [facility] three times daily as needed for cough benzonatate (TESSALON) 100 MG capsule Ta ke 100 mg by mouth 3 times daily as needed for Cough 0 Active Calcium Citrate / Vitamin D (4 sources) Start: 05-22-2022 End: 02-15-2023 Calcium Citrate-Vitamin D (C ALCIUM CITRATE + PO) Indications: Vitamin Deficiency Take 1 tablet by mouth in the morning and 1 tablet at noon and 1 tablet before bedtime. 05/22/2022 02/15/2023 Discontinued (Non-compliance) Start: 05-22-2022 End: 02-15-2023 Calcium Citrate-Vitamin D (C ALCIUM CITRATE + PO) Indications: Vitamin Deficiency Take 1 tablet by mouth in the morning and 1 tablet at noon and 1 tablet before bedtime. 0 05/22/2022 02/15/2023 Discontinued (Non-compliance) Start: 05-22-2022 Calcium Citrat e-Vitamin D (CALCIUM CITRATE + PO) Indications: Vitamin Deficiency Take 1 tablet by mouth in the morning and 1 tablet at noon and 1 tablet before bedtime. 0 05/22/2022 Active ceFAZolin (ANCEF) 3,000 mg in dextrose 5 % 100 mL IVPB (1 source) Start: 02-15-2022 End: 02-15-2022 ceFAZolin (ANCEF) 3,000 mg in dextrose 5 % 100 mL IVPB celecoxib 400 mg oral capsule (1 source) Nonsteroidal Anti-inflammatory Drug Start: 02-15-2022 End: 02-15-2022 celecoxib (CELEBREX) capsule 400 mg dexamethasone 4 mg oral tablet (12 sources) Corticosteroid Start: 09-14-2021 End: 06-01-2022 take 1 tablet by mouth once daily Dexamethasone (Decadron) 4 mg tablet Discontinued 4 MG PO DAILY September 14, 2021 12:00am June 01, 2022 7:19am 5 ml dilTIAZem hydrochloride 5 mg/ml injection (20 sources) Calcium Channel [place] Start: 02-15-2022 End: 02-16-2022 20 mg, IntraVENous, EVERY 6 HOURS, First dose on Sun02/15/22 at 1615, Until Discontinued Administer over at least 2 minutes. Post-op Start: 01-18-2021 End: 06-01-2022 take 180 mg by mouth once daily Diltiazem Hcl Discontinued 180 MG PO DAILY March 28, 2021 11:00pm June 01, 2022 7:20am 1 ml diphenhydrAMINE hydrochloride 50 mg/ml cartridge (1 source) Histamine-1 Receptor Antagonist Start: 02-15-2022 25 mg, IntraVENous, EVERY 6 HOURS PRN, Starting on Sun02/15/22 at 1556, Until Discontinued, Itching docusate sodium 100 mg oral capsule (13 sources) Start: 11-11-2019 End: 06-01-2022 take 1 capsule by mouth once daily Docusate Sodium (Colace) 100 mg capsule Discontinued 100 MG PO DAILY March 28, 2021 11:00pm June 01, 2022 7:20am doxycycline hyclate 100 mg oral tablet (12 sources) Tetracycline-cla ss Drug Start: 10-04-2015 End: 10-29-2015 take 1 tablet by mouth twice daily DOXYCYCLINE HYCLATE 100 MG TABS One tablet by mouth twice daily DOXYCYCLINE HYCLATE [id number] Elissa A Jayro DO 0.4 ml enoxaparin sodium 100 mg/ml prefilled syringe (20 sources) Low Molecular Weight Heparin Start: 02-15-2022 inject 1 dose by subcutaneous injection twice daily 40 mg, SubCUTAneous, EVERY 12 HOURS SCHEDULED (2 times per day), First dose on Sun02/15/22 at 2200, Until Discontinued Indication of Use: Prophylaxis-DVT/P E 40mg every 12 hours, subcutaneous, if 300 - 400 lbs. Post-op Start: 01-16-2022 End: 02-15-2022 enoxaparin (LOVENOX) 120 MG/ 0.8ML injection Indications: DVT prophylaxis Inject 0.8 mLs into the skin every 12 hours As directed 10 each 0 02/15/2022 Active Start: 12-04-2016 End: 09-07-2017 inject 40 mg by subcutaneous injection twice daily Enoxaparin Discontinued 40 MG SQ TWICE A DAY December 03, 2016 11:00pm September 07, 2017 2:27pm 60 actuat exenatide 0.005 mg/actuat pen injector (12 sources) GLP-1 Receptor Agonist Start: 07-21-2015 BYETTA 5 MCG PEN 5 MCG/0.02ML SOPN 5 cmg SC bid EXENATIDE [id number] Elissa Bronsonutzman DO Start: 07-21-2015 BYETTA 5 MCG P EN 5 MCG/0.02ML SOPN 5 cmg SC bid EXENATIDE [id number] Elissa Jessica Jayro DO Start: 07-21-2015 BYETTA 5 MCG P EN 5 MCG/0.02ML SOPN 5 cmg SC bid EXENATIDE [id number] Elissa Jessica [facility] DO famotidine 20 mg oral tablet (2 sources) Histamine-2 Receptor Antagonist Start: 02-15-2022 End: 02-15-2022 take 20 mg by mouth twice daily 20 mg, Oral, 2 TIMES DAILY, First dose on Sun02/15/22 at 2100, Until Discontinued, Post-op 2 ml fentaNYL 0.05 mg/ml injection (1 source) Opioid Agonist Start: 02-15-2022 End: 02-15-2022 fentaNYL (SUBLIMAZE) injection 50 mcg 24 hr fesoterodine fumarate 4 mg extended release oral tablet (20 sources) Start: 06-01-2022 End: 01-08-2023 take 1 tablet by mouth once daily Fesoterodine (Toviaz) 4 mg tablet extended release 24 hr Discontinued 8 MG PO DAILY June 01, 2022 7:20am January 08, 2023 12:47pm Start: 10-30-2019 Toviaz 8 mg or al tablet, extended release Dose : 8 mg = 1 tab(s), Oral, qAM, 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, 0 Refill(s) Start Date: 10/30/19 Status: Ordered Repeat number: 1 Start: 05-28-2019 End: 06-01-2022 Fesoterodine Discontinued 4 MG PO April 25, 2020 11:00pm May 28, 2020 8:33am fluconazole 150 mg oral tablet (15 sources) Azole Antifungal Start: 09-30-2022 End: 07-18-2023 Fluconazole (Diflucan) 150 mg tablet Discontinued 150 MG PO ONCE 2 September 30, 2022 1:40pm July 18, 2023 9:05am 1 tab on day one and symptoms continue day 3 then second pill Start: 12-25-2019 End: 12-27-2019 fluconazole 150 mg oral tabl et Dose : 150 mg = 1 tab(s), Oral, qDay, # 3 tab(s), 0 Refill(s), Pharmacy: [place] [id number] [address] [facility], 162.6, cm, 12/25/19 13:31:00 EDT, Height, 127.8, kg, 12/25/19 13:31:00 EDT, Dosing Weight Start Date: 12/25/19 Stop Date: 12/27/19 Status: Ordered Start: 03-30-2015 End: 03-31-2015 FLUCONAZOLE 150 MG TABS One tablet x 1 FLUCONAZOLE [id number] Elissa Dial DO Fluticasone Propion-Salmeterol (20 sources) Corticosteroid, beta2-Adrenergic Agonist Start: 01-08-2023 End: 07-18-2023 Fluticasone Propion-Salmeterol (Wixela Inhub) 250-50 mcg/dose blister with device Discontinued 1 INH INHALATION TWICE A DAY 60 January 08, 2023 12:58pm July 18, 2023 9:26am Start: 01-08-2023 Fluticasone Pr opion-Salmeterol (Wixela Inhub) 250-50 mcg/dose blister with device Active 1 INH INHALATION TWICE A DAY 60 January 08, 2023 1:58pm Start: 04-19-2022 End: 01-08-2023 take 1 dose by inhalation twice daily Wixela Inhub 250 mcg-50 mcg inhalation powder Dose = 1 puff(s), Inhalation, BID Start Date: 04/19/22 Status: Ordered Repeat number: 1 Start: 03-29-2021 Fluticasone Pr opion-Salmeterol (Wixela Inhub) 250-50 mcg/dose blister with device Active 1 INH INHALATION TWICE A DAY March 29, 2021 11:12am Start: 03-29-2021 End: 06-01-2022 Fluticasone Propion-Salmeter ol (Wixela Inhub) 250-50 mcg/dose blister with device Discontinued 1 INH INHALATION TWICE A DAY March 28, 2021 11:00pm June 01, 2022 7:36am Start: 03-29-2021 End: 06-01-2022 Fluticasone Propion-Salmeter ol (Wixela Inhub) 250-50 mcg/dose blister with device Discontinued 1 INH INHALATION TWICE A DAY March 29, 2021 12:00am June 01, 2022 8:36am Start: 11-22-2020 take 1 puff(s) by mo uth every twelve hours WIXELA INHUB 250-50 MCG/DOSE AEPB inhale 1 puff by mouth every 12 hours 0 11/22/2020 Active Start: 06-08-2020 Fluticasone Pr opion-Salmeterol (Advair Diskus) 250-50 mcg/dose blister with device Active 1 INH INHALATION TWICE A DAY June 08, 2020 11:43am Start: 06-08-2020 End: 06-01-2022 Fluticasone Propion-Salmeter ol (Advair Diskus) 250-50 mcg/dose blister with device Discontinued 1 INH INHALATION TWICE A DAY June 07, 2020 11:00pm June 01, 2022 7:21am Start: 06-08-2020 End: 06-01-2022 Fluticasone Propion-Salmeter ol (Advair Diskus) 250-50 mcg/dose blister with device Discontinued 1 INH INHALATION TWICE A DAY June 08, 2020 12:00am June 01, 2022 8:21am Start: 10-30-2019 take 1 dose by inhal ation twice daily Advair Diskus 250 mcg-50 mcg inhalation powder Dose = 1 puff(s), Inhalation, BID, 0 Refill(s) Start Date: 2/6/20 Status: Ordered Start: 05-28-2019 End: 05-28-2020 Fluticasone Propion-Salmeter ol (Advair Diskus) 250-50 mcg/dose blister with device Discontinued 1 INH INHALATION TWICE A DAY May 28, 2019 11:01am May 28, 2020 9:34am Start: 05-28-2019 End: 05-28-2020 Fluticasone Propion-Salmeter ol (Advair Diskus) 250-50 mcg/dose blister with device Discontinued 1 INH INHALATION TWICE A DAY May 27, 2019 11:00pm May 28, 2020 8:34am Start: 05-28-2019 End: 05-28-2020 Fluticasone Propion-Salmeter ol (Advair Diskus) 250-50 mcg/dose blister with device Discontinued 1 INH INHALATION TWICE A DAY May 28, 2019 12:00am May 28, 2020 9:34am Start: 04-27-2017 ADVAIR DISKUS 100-50 MCG/DOSE AEPB Take as Directed FLUTICASONE-SALMETEROL [id number] Bernard Sharp MD Start: 04-27-2017 ADVAIR DISKUS 100-50 MCG/DOSE AEPB Take as Directed FLUTICASONE-SALMETEROL [id number] Bernard Sharp MD Start: 03-05-2015 End: 04-25-2017 ADVAIR DISKUS 250-50 MCG/DOS E AEPB 2 times daily FLUTICASONE-SALMETEROL [id number] Rosy Suarez RN Start: 03-05-2015 End: 04-25-2017 ADVAIR DISKUS 250-50 MCG/DOS E AEPB 2 times daily FLUTICASONE-SALMETEROL [id number] Rosy Suarez RN Start: 03-05-2015 ADVAIR DISKUS 250-50 MCG/DOSE AEPB 2 times daily FLUTICASONE-SALMETEROL [id number] Elissa Dial DO Start: 03-05-2015 ADVAIR DISKUS 250-50 MCG/DOSE AEPB 2 times daily FLUTICASONE-SALMETEROL [id number] Kimberly Escobedo glipiZIDE 10 mg oral tablet (20 sources) Sulfonylurea Start: 06-01-2022 End: 07-18-2023 take 5 mg by mouth twice daily Glipizide Discontinued 5 MG PO TWICE A DAY June 01, 2022 7:21am July 18, 2023 9:06am Start: 04-20-2022 End: 05-21-2022 glipiZIDE 5 mg oral tablet D ose : 5 mg = 1 tab(s), Oral, qDayAC, # 30 tab(s), 0 Refill(s), Pharmacy: [facility] #[id number], 162.5, cm, 04/18/22 17:52:00 EDT, Height Start Date: 04/20/22 Stop Date: 05/21/22 Status: Ordered Quantity: 30.0 Unit: tab(s) Repeat number: 1 Start: 08-24-2021 End: 06-01-2022 take 10 mg by mouth twice daily Glipizide Discontinued 10 MG PO TWICE A DAY August 24, 2021 1:46pm June 01, 2022 7:26am Start: 03-29-2021 End: 08-24-2021 take 10 mg by mouth once daily Glipizide Discontinued 10 MG PO DAILY March 28, 2021 11:00pm August 24, 2021 1:47pm Start: 12-01-2020 End: 02-15-2023 take 1 tablet by mouth every twenty-four hours glipiZIDE XL (Glucotrol XL) 10 MG 24 hr tablet Indications: Type 2 Diabetes Mellitus Take 50 mg by mouth. 12/01/2020 02/15/2023 Discontinued (Therapy completed) Start: 12-01-2020 glipiZIDE (GLU COTROL XL) 10 MG extended release tablet Indications: Diabetes Mellitus Take 10 mg by mouth daily Indications: Diabetes Diabetes 5 mg 0 12/01/2020 Active Start: 10-22-2019 glipiZIDE 5 mg oral tablet, extended release Dose : 5 mg = 1 tab(s), Oral, qPM, take 1 tablet by mouth daily Start Date: 10/22/19 Status: Ordered Start: 10-09-2018 End: 03-29-2021 take 5 mg by mouth once daily Glipizide Discontinued 5 MG PO DAILY October 09, 2018 12:00am March 29, 2021 10:14am glucagon (rdna) 1 mg injection (1 source) Antihypoglycemic Agent Start: 02-15-2022 take 1 mL intravenously every hour 1 mg, IntraMUSCular, PRN, Starting on Sun02/15/22 at 1556, Until Discontinued, Low blood sugar, Blood glucose less than 70 mg/dL and patient NOT ALERT or NPO and does not have IV access. After administration, attempt intravenous access and start D5W at 100 mL/hr. Repeat blood glucose in 15 minutes x2 and notify provider. GLUCOSE BLOOD (6 sources) Start: 05-26-2015 FREESTYLE LITE TEST STRP as needed daily GLUCOSE BLOOD [id number] Elissa Lopez [facility] Start: 05-26-2015 End: 04-25-2017 FREESTYLE LITE TEST STRP as needed daily GLUCOSE BLOOD [id number] Rosy Suarez RN GLUCOSE BLOOD (6 sources) Start: 05-26-2015 FREESTYLE LITE TEST STRP as needed daily GLUCOSE BLOOD [id number] Elissa Lopez [facility] Start: 05-26-2015 End: 04-25-2017 FREESTYLE LITE TEST STRP as needed daily GLUCOSE BLOOD [id number] Rosy Suarez RN Start: 05-26-2015 FREESTYLE LITE TEST STRP as needed daily GLUCOSE BLOOD [id number] Elissa Lopez [facility] Start: 05-26-2015 End: 04-25-2017 FREESTYLE LITE TEST STRP as needed daily GLUCOSE BLOOD [id number] Rosy Suarez RN 1 ml heparin sodium, porcine 5000 unt/ml prefilled syringe (1 source) Unfractionated Heparin, Anti-coagulant Start: 02-15-2022 End: 02-15-2022 heparin (porcine) injection 5,000 Units 1 ml hydrALAZINE hydrochloride 20 mg/ml injection (1 source) Arteriolar Vasodilator Start: 02-15-2022 20 mg, IntraVENous, EVERY 6 HOURS PRN, Starting on Sun02/15/22 at 1556, Until Discontinued, High Blood Pressure, Give for SBP >160, hold for HR >100, 1st line, anti-HTN., Post-op 3 ml insulin detemir 100 unt/ml pen injector (1 source) Insulin Analog Start: 11-16-2019 Levemir FlexTo uch 100 units/mL 3 mL Pen Dose : 40 unit(s) =, Subcutaneous, qHS, insulin and supplies with pen needles. if subsituted for vial, then insulin syringes. 30 day supply., # 10 mL, 0 Refill(s), Pharmacy: [address], Diabetes mellitus type 2, 162.6, cm, 11/14/19 12:59:... Start Date: 11/16/19 Status: Ordered INSULIN PEN NEEDLE (12 sources) Start: 07-21-2015 End: 04-25-2017 ULTICARE SHORT PEN NEEDLES 31G X 8 MM MISC Use twice daily with [place] INSULIN PEN NEEDLE [id number] Rosy Suarez RN Start: 07-21-2015 ULTICARE SHORT PEN NEEDLES 31G X 8 MM MISC Use twice daily with [place] INSULIN PEN NEEDLE [id number] Elissa Dial DO Start: 06-08-2015 End: 04-25-2017 PEN NEEDLES 5/16 30G X 8 MM MISC Use daily with Victoza INSULIN PEN NEEDLE [id number] Rosy Suarez RN Start: 06-08-2015 PEN NEEDLES 5/ 16 30G X 8 MM MISC Use daily with Victoza INSULIN PEN NEEDLE [id number] Elissa Johnsonman DO INSULIN PEN NEEDLE (2 sources) Start: 06-08-2015 PEN NEEDLES 5/ 16 30G X 8 MM Use daily with Victoza INSULIN PEN NEEDLE [id number] Elissa Dial DO Start: 06-08-2015 End: 04-25-2017 PEN NEEDLES 5/16 30G X 8 MM Use daily with Victoza INSULIN PEN NEEDLE [id number] Rosy Suarez RN INSULIN PEN NEEDLE (2 sources) Start: 07-21-2015 ULTICARE SHORT PEN NEEDLES 31G X 8 MM Use twice daily with [place] INSULIN PEN NEEDLE [id number] Elissa Dial DO Start: 07-21-2015 End: 04-25-2017 ULTICARE SHORT PEN NEEDLES 3 1G X 8 MM Use twice daily with [place] INSULIN PEN NEEDLE [id number] Rosy Suarez RN FERROUS GLUCONATE TABS (12 sources) Start: 03-05-2015 End: 04-25-2017 take 1 tablet by mouth once daily IRON TABS 45 mg One tablet by mouth daily FERROUS GLUCONATE TABS [id number] Rosy Suarez RN Start: 03-05-2015 take 1 tablet by hiwot th once daily IRON TABS 45 mg One tablet by mouth daily FERROUS GLUCONATE TABS [id number] Elissa Jessica Jayro BAUER Start: 03-05-2015 End: 04-25-2017 take 1 tablet by mouth once daily IRON TABS 45 mg One tablet by mouth daily FERROUS GLUCONATE TABS [id number] Rosy Suarez RN Start: 03-05-2015 take 1 tablet by hiwot th once daily IRON TABS 45 mg One tablet by mouth daily FERROUS GLUCONATE TABS [id number] Elissa Jessica Jayro 3 ml liraglutide 6 mg/ml pen injector (12 sources) GLP-1 Receptor Agonist Start: 06-08-2015 End: 07-21-2015 take 0.6 mg by subcutaneous injection once daily, then take 1.2 mg by subcutaneous injection once daily VICTOZA 18 MG/3ML SOPN 0.6 mg SQ once daily for one week, then 1.2 mg SQ daily LIRAGLUTIDE [id number] Elissa Jessica Jayro Start: 06-08-2015 End: 07-21-2015 take 0.6 mg by subcutaneous injection once daily, then take 1.2 mg by subcutaneous injection once daily VICTOZA 18 MG/3ML SOPN 0.6 mg SQ once daily for one week, then 1.2 mg SQ daily LIRAGLUTIDE [id number] Elissa Jessica Jayro Start: 06-08-2015 take 0.6 mg by subcu taneous injection once daily, then take 1.2 mg by subcutaneous injection once daily VICTOZA 18 MG/3ML SOPN 0.6 mg SQ once daily for one week, then 1.2 mg SQ daily LIRAGLUTIDE [id number] Elissa Dial DO lisinopril 5 mg oral tablet (12 sources) Angiotensin Converting Enzyme Inhibitor Start: 05-28-2020 End: 06-08-2020 take 5 mg by mouth once daily Lisinopril Discontinued 5 MG PO DAILY May 27, 2020 11:00pm June 08, 2020 10:39am 1 ml LORazepam 2 mg/ml injection (1 source) Benzodiazepine Start: 02-15-2022 End: 02-15-2022 LORazepam (ATIVAN) injection 0.5 mg 24 hr mirabegron 50 mg extended release oral tablet (20 sources) beta3-Adrenergic Agonist Start: 04-25-2017 take 1 tablet by mouth once daily MYRBETRIQ 50 MG [id number] One tablet by mouth daily MIRABEGRON [id number] Bernard Sharp MD Start: 04-25-2017 take 1 tablet by hwiot th once daily MYRBETRIQ 50 MG [id number] One tablet by mouth daily MIRABEGRON [id number] Bernard Sharp MD take 1 tablet by hiwot th once daily, then take 1 tablet by mouth every twenty-four hours mirabegron ER (Myrbetriq) 25 MG 24 hr tablet Take 25 mg by mouth Nightly. Do not crush, chew, or split. Active nitrofurantoin, macrocrystals 25 mg / nitrofurantoin, monohydrate 75 mg oral capsule (20 sources) Nitrofuran Antibacterial Start: 09-30-2022 End: 10-10-2022 take 1 capsule by mouth twice daily at mealtime Nitrofurantoin Monohyd/M-Cryst (Macrobid) 100 mg capsule Discontinued 100 MG PO TWICE A DAY 13 07September 30, 2022 1:41pm October 10, 2022 12:04am must administer with a meal/food Start: 06-08-2020 End: 05-31-2021 take 1 capsule by mouth twice daily at mealtime Nitrofurantoin Monohyd/M-Cryst (Macrobid) 100 mg capsule Discontinued 100 MG PO TWICE A DAY June 07, 2020 11:00pm March 29, 2021 10:18am must administer with a meal/food omeprazole 20 mg delayed release oral capsule (20 sources) Proton Pump Inhibitor Start: 04-19-2022 End: 02-15-2023 PriLOSEC OTC 20 mg oral delayed release tablet Dose : 20 mg = 1 tab(s), Oral, BID Start Date: 04/19/22 Status: Ordered Repeat number: 1 Start: 03-28-2022 take 1 capsule by mo uth twice daily before mealtime omeprazole (PRILOSEC) 20 MG delayed release capsule Take 1 capsule by mouth 2 times daily (before meals) 180 capsule 0 03/28/2022 Active Start: 01-05-2022 End: 12-11-2023 take 1 capsule by mouth once daily omeprazole (PriLOSEC) [address] capsule Take 1 capsule (20 mg) by mouth daily. Do not crush or chew. 90 capsule 1 09/29/2022 05/18/2023 Discontinued 24 hr oxybutynin chloride 10 mg extended release oral tablet (20 sources) Cholinergic Muscarinic Antagonist Start: 04-25-2017 take 1 tablet by mouth once daily DITROPAN XL 10 MG [id number] One tablet by mouth daily OXYBUTYNIN CHLORIDE [id number] Rosy Suarez RN Start: 02-09-2014 End: 09-07-2017 take 10 mg by mouth once daily Oxybutynin Chloride Dis continued 10 MG PO DAILY February 08, 2014 11:00pm September 07, 2017 2:26pm Ozempic, 0.25 or 0.5 MG/DOSE, 2 MG/3ML solution pen-injector (20 sources) Start: 07-05-2023 End: 01-09-2024 inject 0.5 mg by subcutaneous injection every week Ozempic, 0.25 or 0.5 MG/DOSE, 2 MG/3ML solution pen-injector INJECT 0.5 MG UNDER THE SKIN 1 (ONE) TIME PER WEEK. 3 mL 0 07/05/2023 01/09/2024 Discontinued (Therapy completed) Start: 07-05-2023 inject 0.5 mg by sub cutaneous injection every week Ozempic, 0.25 or 0.5 MG/DOSE, 2 MG/3ML solution pen-injector INJECT 0.5 MG UNDER THE SKIN 1 (ONE) TIME PER WEEK. 3 mL 0 07/05/2023 Active Start: 07-05-2023 End: 08-04-2023 inject 0.5 mg by subcutaneous injection every week Ozempic, 0.25 or 0.5 MG/DOSE, 2 MG/3ML solution pen-injector INJECT 0.5 MG UNDER THE SKIN 1 (ONE) TIME PER WEEK. 3 mL 0 07/05/2023 08/04/2023 Active Start: 04-12-2023 End: 02-27-2024 inject 0.25 mg by subcutaneous injection every week Ozempic, 0.25 or 0.5 MG/DOSE, 2 MG/3ML solution pen-injector INJECT 0.25 MG SUBCUTANEOUSLY WEEKLY 3 mL 1 04/12/2023 02/27/2024 Discontinued (Therapy completed) Start: 04-12-2023 inject 0.25 mg by ron bcutaneous injection every week Ozempic, 0.25 or 0.5 MG/DOSE, 2 MG/3ML solution pen-injector INJECT 0.25 MG SUBCUTANEOUSLY WEEKLY 3 mL 1 04/12/2023 Active promethazine hydrochloride 25 mg oral tablet (12 sources) Phenothiazine Start: 10-23-2021 End: 06-01-2022 take 25 mg by mouth every six hours as needed Promethazine Discontinued 25 MG PO EVERY 6 HOURS NEEDED October 23, 2021 12:00am June 01, 2022 7:24am semaglutide (Ozempic, 0.25 or 0.5 MG/DOSE,) 2 MG/3ML solution pen-injector (10 sources) Start: 06-06-2023 End: 07-05-2023 inject 0.5 mg by subcutaneous injection every week semaglutide (Ozempic, 0.25 or 0.5 MG/DOSE,) 2 MG/3ML solution pen-injector Inject 0.5 mg under the skin 1 (one) time per week. 3 mL 06/06/2023 07/05/2023 Discontinued Start: 06-06-2023 End: 07-05-2023 inject 0.5 mg by subcutaneous injection every week semaglutide (Ozempic, 0.25 or 0.5 MG/DOSE,) 2 MG/3ML solution pen-injector Inject 0.5 mg under the skin 1 (one) time per week. 3 mL 0 06/06/2023 07/05/2023 Discontinued Start: 06-06-2023 End: 07-06-2023 inject 0.5 mg by subcutaneous injection every week semaglutide (Ozempic, 0.25 or 0.5 MG/DOSE,) 2 MG/3ML solution pen-injector Inject 0.5 mg under the skin 1 (one) time per week. 3 mL 0 06/06/2023 07/06/2023 Active Start: 03-23-2023 End: 04-12-2023 inject 0.25 mg by subcutaneous injection every week semaglutide (Ozempic, 0.25 or 0.5 MG/DOSE,) 2 MG/3ML solution pen-injector Inject 0.25 mg under the skin 1 (one) time per week. 3 mL 0 03/23/2023 04/12/2023 Discontinued Start: 03-23-2023 End: 04-22-2023 inject 0.25 mg by subcutaneous injection every week semaglutide (Ozempic, 0.25 or 0.5 MG/DOSE,) 2 MG/3ML solution pen-injector Inject 0.25 mg under the skin 1 (one) time per week. 3 mL 0 03/23/2023 04/22/2023 Active 5 ml sodium chloride 9 mg/ml injection (5 sources) Start: 02-15-2022 take 1 dose intravenously twice daily 5-40 mL, IntraVENous, EVERY 12 HOURS SCHEDULED (2 times per day), First dose on Sun02/15/22 at 2100, Until Discontinued For Line Patency: Peripheral IV = 5 mL; Midline or Central Line = 10 mL/lumen. If following IV push medication, administer flush at same rate as the IV push. Flush volume is determined by type of infusion therapy being given. For non-viscous solutions use: Peripheral IV = 5 mL Midline or Central Line = 10 mL/lumen For viscous solutions (i.e. blood components, parenteral nutrition, contrast media, or after obtaining blood sample) use: Peripheral IV = 10 mL Midline or Central Line = 20 mL/lumen Post-op Start: 02-15-2022 IntraVENous, a t 75 mL/hr, CONTINUOUS, Starting on Sun02/15/22 at 1615, Post-op Start: 02-15-2022 IntraVENous, a t 5-250 mL/hr, PRN, if patient receiving piggyback infusions and maintenance fluids are not ordered OR KVO fluids to protect IV site / prevent frequent line interruptions/ long duration, Starting on Sun02/15/22 at 1556 For piggyback infusion, administer at same rate as piggyback for a total of 25 mL. Enter 25 mL into dose field and piggyback rate into rate field of order. If piggyback is infusing at a rate less than 100 mL/hr, enter 25 mL into dose field and 100 mL/hr into rate field of order. For KVO fluids, enter rate of 20 mL/hr or less into rate field of order. Post-op Start: 02-15-2022 take 5-40 mL intrave nously once as needed 5-40 mL, IntraVENous, PRN, Starting on Sun02/15/22 at 1556, Until Discontinued, Line Care, After every IV line use For Line Patency: Peripheral IV = 5 mL; Midline or Central Line = 10 mL/lumen. If following IV push medication, administer flush at same rate as the IV push. Flush volume is determined by type of infusion therapy being given. For non-viscous solutions use: Peripheral IV = 5 mL Midline or Central Line = 10 mL/lumen For viscous solutions (i.e. blood components, parenteral nutrition, contrast media, or after obtaining blood sample) use: Peripheral IV = 10 mL Midline or Central Line = 20 mL/lumen Post-op Start: 05-31-2021 0.9 % sodium c hloride infusion sulfamethoxazole 800 mg / trimethoprim 160 mg oral tablet (12 sources) Dihydrofolate Reductase Inhibitor Antibacterial, Sulfonamide Antimicrobial Start: 10-09-2018 End: 05-28-2019 take 1 tablet by mouth twice daily Sulfamethoxazole-Trimethoprim Discontinued 1 TABLET PO TWICE A DAY October 09, 2018 12:00am May 28, 2019 10:04am Tirzepatide (Mounjaro) 2.5 MG/0.5ML solution pen-injector (4 sources) Start: 10-03-2023 End: 11-14-2023 Tirzepatide (Mounjaro) 2.5 MG/0.5ML solution pen-injector Indications: Type 2 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 without complication, without long-term current use of insulin (CMS/HCC) ([facility]) Inject 2.5 mg under the skin every 7 days. 2 mL 0 10/03/2023 11/14/2023 Discontinued (Therapy completed) Start: 10-03-2023 End: 11-02-2023 Tirzepatide (Mounjaro) 2.5 M G/0.5ML solution pen-injector Indications: Type 2 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 without complication, without long-term current use of insulin (CMS/HCC) (HCC) Inject 2.5 mg under the skin every 7 days. 2 mL 0 10/03/2023 11/02/2023 Active tiZANidine 4 mg oral tablet (18 sources) Central alpha-2 Adrenergic Agonist Start: 03-05-2015 End: 10-29-2015 take 1-2 tablets by mouth twice daily as needed TIZANIDINE HCL 4 MG TABS 1-2 tabs by mouth twice daily as needed TIZANIDINE HCL [id number] Elissa Bronsonutzman triamcinolone acetonide 5 mg/ml topical cream (20 sources) Corticosteroid Start: 09-26-2022 End: 07-18-2023 Triamcinolone Acetonide Discontinued 1 APPLIC TOPICAL TWICE A DAY 15 September 26, 2022 12:00am July 18, 2023 9:07am peasized amount as instructed Start: 08-24-2021 End: 06-01-2022 Triamcinolone Acetonide Disc ontinued 1 APPLIC TOPICAL TWICE A DAY 15 August 24, 2021 2:06pm June 01, 2022 7:25am peasized amount as instructed Start: 01-18-2021 End: 05-31-2021 triamcinolone (ARISTOCORT) 0 .5 % cream apply PEA SIZED AMOUNT topically twice a day for 7 days as directed 0 01/18/2021 05/31/2021 Discontinued (LIST CLEANUP) Start: 05-28-2019 End: 03-10-2020 Triamcinolone Acetonide Disc ontinued 1 APPLIC TOPICAL TWICE A DAY 15 May 27, 2019 11:00pm March 10, 2020 8:59am peasized amount as instructed 24 hr trospium chloride 60 mg extended release oral capsule (12 sources) Cholinergic Muscarinic Antagonist Start: 09-07-2017 End: 05-28-2019 take 60 mg by mouth once daily in the morning Trospium Discontinued 60 MG PO EVERY MORNING September 07, 2017 12:00am May 28, 2019 10:04am valACYclovir 1000 mg oral tablet (6 sources) Herpesvirus Nucleoside Analog DNA Polymerase Inhibitor, Herpes Simplex Virus Nucleoside Analog DNA Polymerase Inhibitor, Herpes Zoster Virus Nucleoside Analog DNA Polymerase Inhibitor Start: 03-09-2015 End: 03-16-2015 take 1 tablet by mouth three times daily VALACYCLOVIR HCL 1 GM TABS One tablet by mouth three times daily VALACYCLOVIR HCL [id number] Elissa Dial DO 0.65 ml varicella-zoster virus vaccine live ([facility]) strain [id number] unt/ml injection (4 sources) Start: 06-08-2015 End: 06-11-2015 ZOSTAVAX 11920 UNT/0.65ML SUSR One Injection for shingles prevention to be given at pharmacy ZOSTER VACCINE LIVE [id number] Elissa Dial DO Start: 06-08-2015 End: 06-11-2015 ZOSTAVAX 86827 UNT/0.65ML RON SR One Injection for shingles prevention to be given at pharmacy ZOSTER VACCINE LIVE [id number] Elissa Dial DO 24 hr venlafaxine 150 mg extended release oral capsule (18 sources) Serotonin and Norepinephrine Reuptake Inhibitor Start: 03-05-2015 End: 09-29-2015 take 1 tablet by mouth once daily EFFEXOR XR 150 MG [id number] One tablet by mouth daily VENLAFAXINE HCL [id number] Elissa Dial DO Start: 03-05-2015 take 1 tablet by hiwot th once daily EFFEXOR XR 150 MG [id number] One tablet by mouth daily VENLAFAXINE HCL [id number] Kimberly Escobedo Start: 03-05-2015 End: 09-29-2015 take 1 tablet by mouth once daily EFFEXOR XR 150 MG [id number] One tablet by mouth daily VENLAFAXINE HCL [id number] Elissa Dial DO Start: 03-05-2015 take 1 tablet by hiwot th once daily EFFEXOR XR 150 MG [id number] One tablet by mouth daily VENLAFAXINE HCL [id number] Elissa Dial DO VITAMIN D, CHOLECALCIFEROL, PO (20 sources) Start: 02-27-2023 End: 04-03-2023 VITAMIN D, CHOLECALCIFEROL, PO Take 6,000 Int'l Units by mouth. 02/27/2023 04/03/2023 Discontinued (Dose adjustment) Start: 02-27-2023 End: 04-03-2023 VITAMIN D, CHOLECALCIFEROL, PO Take 6,000 Int'l Units by mouth. 0 02/27/2023 04/03/2023 Discontinued (Dose adjustment) Start: 02-27-2023 VITAMIN D, CHO LECALCIFEROL, PO Take 6,000 Int'l Units by mouth. 0 02/27/2023 Active Start: 02-23-2022 VITAMIN D, CHO LECALCIFEROL, PO Take 4,000 Int'l Units by mouth. 0 02/23/2022 Active Start: 02-23-2022 VITAMIN D, CHO LECALCIFEROL, PO Take 4,000 Int'l Units by mouth daily 0 02/23/2022 Active Start: 06-09-2021 VITAMIN D, CHO LECALCIFEROL, PO Take 4,000 Int'l Units by mouth daily 0 06/09/2021 Active Problems Active Problems Problem Classification Problem Date Documented Date Episodic/Chronic Abdominal pain (20 sources) Abdominal pain; Translations: [Right upper quadrant pain] Onset: 5 Resolved: 5 03-05-2015 Episodic Allergic reactions (13 sources) Environmental allergy; Translations: [Contact dermatitis] Onset: 5 Resolved: 7 04-25-2017 Episodic Anxiety disorders (13 sources) Mixed anxiety and depressive disorder; Translations: [Anxiety disorder, unspecified] Onset: 5 09-20-2020 Chronic Asthma (20 sources) Asthma; Translations: [Unspecified asthma, uncomplicated] Onset: 5 03-05-2015 Chronic Cardiac dysrhythmias (20 sources) Ventricular premature beats; Translations: [Ventricular premature depolarization] 03-29-2021 Chronic Cardiac dysrhythmias (7 sources) Palpitations; Translations: [Palpitations] Onset: 6 Resolved: 6 10-04-2015 Episodic Coagulation and hemorrhagic disorders (20 sources) Factor V Leiden mutation; Translations: [Hypercoagulability state] Onset: 5 04-25-2017 Chronic Congestive heart failure; nonhypertensive (20 sources) Congestive heart failure; Translations: [Heart failure, unspecified] Onset: 3 11-16-2019 Chronic Deficiency and other anemia (1 source) Hematopoietic system finding; Translations: [Anemia, unspecified] 02-27-2023 Episodic Deficiency and other anemia (2 sources) Hemoglobin low; Translations: [Anemia, unspecified] 04-03-2023 Episodic Deficiency and other anemia (1 source) Anemia; Translations: [Anemia, unspecified] 03-29-2023 Episodic Diabetes mellitus without complication (20 sources) Type 2 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; Translations: [Diabetes mellitus] Onset: 5 03-05-2015 Chronic Disorders of lipid metabolism (20 sources) Hyperlipidemia; Translations: [Hypercholesterolemia] Onset: 5 03-05-2015 Chronic Esophageal disorders (20 sources) Gastroesophageal reflux disease; Translations: [Gastro-esophageal reflux disease without esophagitis] Onset: 5 03-05-2015 Chronic Essential hypertension (20 sources) Hypertensive disorder; Translations: [Essential (primary) hypertension] Onset: 5 03-05-2015 Chronic Gastritis and duodenitis (20 sources) Chronic superficial gastritis; Translations: [Chronic superficial gastritis without bleeding] Onset: 1 Chronic Gastrointestinal hemorrhage (12 sources) Hematochezia; Translations: [Melena] 10-31-2021 Episodic Genitourinary symptoms and ill-defined conditions (1 source) Urge incontinence; Translations: [Urge incontinence] Onset: 5 Chronic Genitourinary symptoms and ill-defined conditions (10 sources) Dysuria; Translations: [Bacteriuria] Onset: 5 Resolved: 5 07-29-2015 Episodic Immunizations and screening for infectious disease (14 sources) Patient encounter status; Translations: [Encounter for screening for COVID-19] 09-14-2021 Episodic Intestinal infection (12 sources) Viral gastroenteritis; Translations: [Viral intestinal infection, unspecified] 10-31-2021 Episodic Intracranial injury (2 sources) Injury of head; Translations: [Unspecified intracranial injury with loss of consciousness of 30 minutes or less, initial encounter] 04-30-2023 Episodic Mood disorders (12 sources) Depressive disorder; Translations: [Major depressive disorder, single episode, unspecified] Onset: 6 Resolved: 7 09-29-2015 Chronic Mood disorders (1 source) Mood disorders; Translations: [Depression, unspecified] Onset: 5 Mycoses (15 sources) Candidiasis of mouth; Translations: [Candidal stomatitis] Onset: 3 Episodic Nonspecific chest pain (9 sources) Chest pain; Translations: [Chest pain, unspecified] Onset: 7 04-25-2017 Episodic Nutritional deficiencies (17 sources) Vitamin D deficiency; Translations: [Vitamin D deficiency, unspecified] Onset: 4 Chronic Osteoarthritis (18 sources) Osteoarthritis of knee; Translations: [Unilateral primary osteoarthritis, left knee] Onset: 5 Resolved: 7 03-05-2015 Chronic Other aftercare (1 source) Postoperative visit; Translations: [Encounter for other specified surgical aftercare] Episodic Other aftercare (2 sources) Long-term current use of anticoagulant; Translations: [clipper automatic (current) use of anticoagulants] 04-30-2023 Episodic Other connective tissue disease (12 sources) History of repair of hip joint; Translations: [Presence of unspecified artificial hip joint] 05-26-2021 Chronic Other connective tissue disease (2 sources) Presence of right artificial knee joint; Translations: [Knee joint replacement] Onset: 5 07-14-2025 Chronic Other diseases of bladder and urethra (12 sources) Bladder muscle dysfunction - overactive; Translations: [Overactive bladder] Onset: 5 Resolved: 7 03-05-2015 Chronic Other diseases of veins and lymphatics (12 sources) 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 syndrome; Translations: [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 syndrome without complications of unspecified extremity] 12-22-2017 Chronic Other diseases of veins and lymphatics (2 sources) 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 syndrome without complications of unspecified extremity; Translations: [Postphlebetic syndrome without complications] 01-08-2023 Chronic Other female genital disorders (11 sources) Endometrial hyperplasia 11-14-2019 Chronic Other female genital disorders (12 sources) History of endometrial hyperplasia; Translations: [Personal history of other diseases of the female genital tract] 06-08-2020 Episodic Other gastrointestinal disorders (13 sources) Irritable bowel syndrome; Translations: [Irritable bowel syndrome without diarrhea] Onset: 5 Resolved: 7 03-05-2015 Chronic Other gastrointestinal disorders (11 sources) Chronic constipation 03-04-2015 Episodic Other gastrointestinal disorders (20 sources) History of bariatric surgical procedure; Translations: [Bariatric surgery status] 03-23-2023 Episodic Other hematologic conditions (3 sources) Hypercoagulability state; Translations: [Other primary thrombophilia] Onset: 5 03-05-2015 Chronic Other hereditary and degenerative nervous system conditions (13 sources) Restless legs; Translations: [Restless legs syndrome] Onset: 5 Resolved: 7 04-25-2017 Chronic Other liver diseases (12 sources) Steatosis of liver; Translations: [Fatty (change of) liver, not elsewhere classified] Onset: 5 Resolved: 7 04-25-2017 Chronic Other lower respiratory disease (12 sources) Dyspnea on exertion; Translations: [Dyspnea, unspecified] 04-27-2020 Episodic Other lower respiratory disease (1 source) Hypoxemia; Translations: [Hypoxemia] Onset: 3 Episodic Other non-traumatic joint disorders (4 sources) Pain in right knee; Translations: [Pain in joint, lower leg] Episodic Other non-traumatic joint disorders (1 source) Pain in left knee; Translations: [Pain in joint, lower leg] 02-23-2023 Episodic Other non-traumatic joint disorders (2 sources) Joint pain; Translations: [Pain in unspecified joint] 02-23-2023 Episodic Other nutritional; endocrine; and metabolic disorders (20 sources) Body mass index (BMI) 45.0-49.9, adult; Translations: [Obesity] Onset: 5 Resolved: 7 04-27-2017 Chronic Other nutritional; endocrine; and metabolic disorders (20 sources) Morbid obesity; Translations: [Morbid (severe) obesity due to excess calories] Onset: 5 Resolved: 7 03-05-2015 Chronic Other nutritional; endocrine; and metabolic disorders (20 sources) Obesity; Translations: [Obesity, unspecified] Onset: 6 Resolved: 7 04-04-2016 Chronic Other nutritional; endocrine; and metabolic disorders (20 sources) Severe obesity; Translations: [Morbid (severe) obesity due to excess calories] Onset: 1 02-03-2021 Chronic Other nutritional; endocrine; and metabolic disorders (20 sources) Body mass index 40+ - severely obese; Translations: [Morbid (severe) obesity due to excess calories] Onset: 1 Resolved: 2 Chronic Other nutritional; endocrine; and metabolic disorders (14 sources) Hypomagnesemia; Translations: [Hypomagnesemia] Onset: 2 11-15-2019 Chronic Other nutritional; endocrine; and metabolic disorders (7 sources) Morbid (severe) obesity due to excess calories; Translations: [Morbid obesity] Onset: 2 Chronic Other nutritional; endocrine; and metabolic disorders (3 sources) Body mass index 30+ - obesity; Translations: [Body mass index (BMI) 39.0-39.9, adult] 02-27-2024 Chronic Other nutritional; endocrine; and metabolic disorders (2 sources) Body mass index (BMI) 39.0-39.9, adult; Translations: [Body mass index (BMI) 39.0-39.9, adult] Onset: 2 Chronic Other nutritional; endocrine; and metabolic disorders (2 sources) Body mass index (BMI) 40.0-44.9, adult; Translations: [Body mass index (BMI) 40.0-44.9, adult ([facility])] Onset: 2 Chronic Other upper respiratory infections (2 sources) Streptococcal sore throat; Translations: [Streptococcal pharyngitis] Onset: 5 Episodic Phlebitis; thrombophlebitis and thromboembolism (18 sources) H/O: thrombosis; Translations: [Deep venous thrombosis] Onset: 7 04-25-2017 Episodic Pneumonia (17 sources) Pneumonia; Translations: [Pneumonia, unspecified organism] Onset: 6 Resolved: 6 10-04-2015 Episodic Residual codes; unclassified (12 sources) Sleep apnea; Translations: [Sleep apnea, unspecified] Onset: 2 01-15-2015 Chronic Residual codes; unclassified (7 sources) Obstructive sleep apnea (adult) (pediatric); Translations: [Obstructive sleep apnea (adult)(pediatric)] Onset: 5 Chronic Residual codes; unclassified (12 sources) Edema of lower extremity; Translations: [Localized edema] 04-27-2020 Episodic Spondylosis; intervertebral disc disorders; other back problems (14 sources) Cervical spondylosis; Translations: [Lumbar spondylosis] Onset: 5 Resolved: 7 04-25-2017 Chronic Unclassified (20 sources) Obstructive sleep apnea syndrome; Translations: [Obstructive sleep apnea (adult) (pediatric)] Onset: 5 03-05-2015 Chronic Urinary tract infections (20 sources) Urinary tract infectious disease; Translations: [Urinary tract infection, site not specified] Onset: 5 11-14-2019 Episodic Viral infection (20 sources) Herpes zoster; Translations: [Disease caused by 2019-nCoV] Onset: 5 Resolved: 7 03-09-2015 Episodic Past or Other Problems Problem Classification Problem Date Documented Da te Episodic/Chronic Coma; stupor; and brain damage (20 sources) Daytime somnolence; Translations: [Somnolence] Onset: 02-03-2021 02-03-2021 Episodic Conditions associated with dizziness or vertigo (12 sources) Benign paroxysmal positional vertigo; Translations: [Benign paroxysmal vertigo, unspecified ear] Onset: 12-14-2015 Resolved: 04-25-2017 04-25-2017 Episodic Fluid and electrolyte disorders (16 sources) Hypokalemia; Translations: [Hypokalemia] Onset: 10-04-2015 Resolved: 10-29-2015 10-04-2015 Episodic Intestinal obstruction without hernia (6 sources) Small bowel obstruction; Translations: [Unspecified intestinal obstruction] Onset: 12-14-2015 Resolved: 12-21-2015 12-14-2015 Episodic Nausea and vomiting (3 sources) Nausea; Translations: [Nausea] Onset: 01-09-2024 01-09-2024 Episodic Nutritional deficiencies (20 sources) Deficiency of multiple nutrient elements; Translations: [Deficiency of multiple nutrient elements] Onset: 02-22-2022 02-22-2022 Episodic Other aftercare (12 sources) clipper automatic (current) use of anticoagulants; Translations: [custodial (current) use of anticoagulants] Onset: 09-24-1960 04-25-2017 Episodic Other aftercare (20 sources) Anticoagulant effect; Translations: [clipper automatic (current) use of anticoagulants] Onset: 05-31-2021 Episodic Other and unspecified benign neoplasm (20 sources) Gastric polyp; Translations: [Polyp of stomach and duodenum] Onset: 05-31-2021 Episodic Other bone disease and musculoskeletal deformities (12 sources) Osteopenia; Translations: [Other specified disorders of bone density and structure, unspecified site] Onset: 03-05-2015 Resolved: 04-25-2017 03-05-2015 Episodic Other circulatory disease (6 sources) H/O: pulmonary embolus; Translations: [Personal history of pulmonary embolism] Onset: 04-25-2017 04-25-2017 Episodic Other connective tissue disease (12 sources) Foot pain; Translations: [Pain in right foot] Onset: 04-04-2016 Resolved: 04-25-2017 04-25-2017 Episodic Other gastrointestinal disorders (2 sources) Bariatric surgery status; Translations: [Bariatric surgery status] Onset: 11-27-2023 Episodic Other lower respiratory disease (20 sources) Dyspnea; Translations: [Dyspnea, unspecified] Onset: 06-03-2013 06-03-2013 Episodic Other screening for suspected conditions (not mental disorders or infectious disease) (20 sources) Thallium stress test abnormal; Translations: [Abnormal result of other cardiovascular function study] Onset: 08-21-2023 Episodic Pulmonary heart disease (20 sources) Pulmonary embolism; Translations: [Other pulmonary embolism without acute cor pulmonale] Onset: 02-03-2021 02-03-2021 Episodic Spondylosis; intervertebral disc disorders; other back problems (20 sources) Backache; Translations: [Dorsalgia, unspecified] Onset: 02-03-2021 02-03-2021 Episodic Unclassified (4 sources) Influenza vaccination ; Translations: [Encounter for immunization] Onset: 06-08-2015 Resolved: 06-11-2015 06-08-2015 Results Test Name Value Interpretation Reference Range Facility Relevant diagnostic tests/la boratory data Narrativeon 07-14-2025 Fall risk assessment no [facility] [employer] Work Phone: MEDS REVIEW Documentation of current medications (procedure) [employer] Work Phone: MEDS REVIEWD Medications reviewed with changes [employer] Work Phone: MR/BMS.BUSon 06-02-2025 MR/BMS.ELOY [facility] [address] [place] [address], [address] [place] [address] OFFICE VISIT Date of Service: 06/02/25 MR#: [id number] Acct: [id number] Name: HEAVEN MONROE Rep #: [id number] : 1955 Provider: Dr. Jennifer Mccullough i, MD Age/Sex: 69/F [place] [facility] [place]: S[place] Intake Vital Signs 04/27/25 14:13 06/02/25 14:42 Height 5 ft 4 in 5 ft 4 in Weight: 229 lb 229 lb BMI 39.3 39.3 BP 128/77 H 132/77 H Blood Pressure Location Rt radial Position Sitting Pulse 81 85 Intake Visit Reasons: freq. incont. poss UTI Chief Complaint: possible uti Material Requirements Worker Required: No Accompanied by: self Is patient in pain?: No Allergies KENYA Inhibitors Allergy (Verified 06/02/25 14:47) cough clindamycin Allergy (Verified 06/02/25 14:47) Hives liraglutide (From Victoza) Allergy (Verified 06/02/25 14:47) lump in throat metoprolol Allergy (Verified 06/02/25 14:47) unk propoxyphene napsylate (From Darvocet-N 100) Allergy (Verified 06/02/25 14:47) Unknown repaglinide Adverse Reaction (Severe, Verified 06/02/25 14:47) Back Pain, PULIDO, Nausea Medications ???Medication ???Instructions ???Recorded ???Confirmed ???Type tramadol 50 mg tablet 50 mg PO Q6H PRN PRN Pain #8 tabs 04/09/14 06/02/25 Rx meclizine 25 mg tablet 25 mg PO TID PRN Dizziness 06/02/25 History gabapentin 100 mg capsule 100 mg PO TID 03/29/21 06/02/25 Hi story furosemide 20 mg tablet 20 mg PO DAILY PRN Swelling 06/02/25 History omeprazole magnesium 20 mg 20 mg PO DAILY 06/01/22 06/02/25 H istory tablet,delayed release (Prilosec OTC) warfarin 5 mg tablet 3 mg PO MOWEFR 06/01/22 06/02/25 H istory vibegron 75 mg tablet (Gemtesa) 75 mg PO DAILY 01/08/23 06/02/25 H istory atorvastatin 40 mg tablet 40 mg PO QHS 07/18/23 06/02/25 His tory potassium chloride 20 mEq 20 meq PO BID 07/18/23 06/02/25 Hi story tablet,extended release ropinirole 3 mg tablet 3 mg PO QHS restless legs 01/02/24 06/02/25 History losartan 100 mg tablet 100 mg PO QDAY 07/11/24 06/02/25 H istory metformin 500 mg tablet 500 mg PO BID 07/11/24 06/02/25 Hi story albuterol sulfate 90 mcg/actuation 2 puff inhalation Q6H PRN Wheezi ng 10/10/24 06/02/25 Rx aerosol inhaler (Ventolin HFA) #8.5 grams amlodipine 5 mg tablet 5 mg PO QDAY 10/10/24 06/02/25 His tory hydroxyzine HCl 25 mg tablet 25 mg PO TID PRN anxiety #90 tabs 01/08/25 06/02/25 Rx duloxetine 60 mg capsule,delayed 60 mg PO DAILY #90 caps 02/17/25 0 06/02/25 Rx release fesoterodine 4 mg tablet,extended 4 mg PO QDAY 90 days #90 tabs 06/1806/02/25 Rx release 24 hr (Toviaz) Have you fallen in the past year?: No Nurse's Note: Patient is having frequency and incontinence, pulling sensation. Patient reports at night or in the am she cannot hold her urine well. [facility] Medical History Anemia Anxiety Depression, unspecified COVID-19 Encounter for screening for COVID-19 Chronic diastolic heart failure IBS (irritable bowel syndrome) GERD (gastroesophageal reflux disease) Premature ventricular contraction Premature atrial contraction SVT (supraventricular tachycardia) Essential hypertension Type 2 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 Asthma Congestive heart failure Anxiety and depression Surgical History History of cholecystectomy History of laparoscopic-assiste d vaginal hysterectomy History of hip replacement Hx of appendectomy Family History Father Diabetes Heart disease Mother CVA (cerebral vascular accident) Alzheimer disease Osteoporosis Sister Cancer throat, mouth Infertility Diabetes Blood clot associated with vein wall inflammation Mouth cancer Throat cancer FH: kidney cancer Aunt Breast cancer Social History household members: spouse Smoking Status: Never smoker alcohol intake: never substance use type: does not use caffeine: Yes what type of physical activity do you participate in: none seatbelt use: always do you feel safe at home: Yes additional social history: [place]- 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 She is here for a possible acute urinary tract infection. Symptoms of an infection started about 2-3 days ago. Her symptoms include urgency, frequency, and a pulling sensation. She is tired of having gushing leaking in the mornings. She is having trouble with her CPAP and it needs to be adjusted. She only wore it 20 minutes last night and then used full mask the rest of the night. She is wearing pull ups to bed. There is no dysuria (more content not included)... Normal [facility] Relevant diagnostic tests/la boratory data Narrativeon 05-13-2025 Fall risk assessment yes [facility] [employer] Work Phone: MEDS REVIEW [employer] Work Phone: MEDS REVIEWD Medications reviewed with changes [employer] Work Phone: XRAY HX of the right knee on 08/22/2023 at [facility] [employer] Work Phone: MR/[place] 04-27-2025 MR/ELOY [facility] [address], [address] [place] [address] OFFICE VISIT Date of Service: 04/27/25 MR#: [id number] Acct: [id number] Name: HEAVEN MONROE Rep #: [id number] : 1955 Provider: Dr. Jennifer Mccullough i, MD Age/Sex: 69/F [place] [facility] [place] Status: Signed Intake Vital Signs 02/17/25 14:27 04/10/25 13:01 04/27/25 14:13 Height 5 ft 4 in 5 ft 4 in 5 ft 4 in Weight: 229 lb BMI 39.3 BP 128/77 H Blood Pressure Location Rt radial Position Sitting Pulse 81 Intake Visit Reasons: 12MO Chief Complaint: 12 month gemtesa follow up Material Requirements Worker Required: No Accompanied by: Self Is patient in pain?: No Allergies KENYA Inhibitors Allergy (Verified 04/27/25 14:10) cough clindamycin Allergy (Verified 04/27/25 14:10) Hives liraglutide (From Victoza) Allergy (Verified 04/27/25 14:10) lump in throat metoprolol Allergy (Verified 04/27/25 14:10) unk propoxyphene napsylate (From Darvocet-N 100) Allergy (Verified 04/27/25 14:10) Unknown repaglinide Adverse Reaction (Severe, Verified 04/27/25 14:10) Back Pain, PULIDO, Nausea Medications ???Medication ???Instructions ???Recorded ???Confirmed ???Type tramadol 50 mg tablet 50 mg PO Q6H PRN PRN Pain #8 tabs 04/09/14 04/27/25 Rx meclizine 25 mg tablet 25 mg PO TID PRN Dizziness 9 04/27/25 History gabapentin 100 mg capsule 100 mg PO TID 03/29/21 04/27/25 Hi story warfarin 2 mg tablet 2 mg PO SUTUTHSA 03/29/21 04/27/25 History furosemide 20 mg tablet 20 mg PO DAILY PRN Swelling 04/27/25 History omeprazole magnesium 20 mg 20 mg PO DAILY 06/01/22 04/27/25 H istory tablet,delayed release (Prilosec OTC) warfarin 5 mg tablet 3 mg PO MOWEFR 06/01/22 04/27/25 H istory vibegron 75 mg tablet (Gemtesa) 75 mg PO DAILY 01/08/23 04/27/25 H istory atorvastatin 40 mg tablet 40 mg PO QHS 07/18/23 04/27/25 His tory potassium chloride 20 mEq 20 meq PO BID 07/18/23 04/27/25 Hi story tablet,extended release ondansetron 4 mg disintegrating 4 mg PO Q8H PRN PRN Nausea #10 tab s 11/04/23 04/27/25 Rx tablet ropinirole 3 mg tablet 3 mg PO QHS restless legs 01/02/24 04/27/25 History losartan 100 mg tablet 100 mg PO QDAY 07/11/24 04/27/25 H istory metformin 500 mg tablet 500 mg PO BID 07/11/24 04/27/25 Hi story albuterol sulfate 90 mcg/actuation 2 puff inhalation Q6H PRN Wheezi ng 10/10/24 04/27/25 Rx aerosol inhaler (Ventolin HFA) #8.5 grams amlodipine 5 mg tablet 5 mg PO QDAY 10/10/24 04/27/25 His tory hydroxyzine HCl 25 mg tablet 25 mg PO TID PRN anxiety #90 tabs 01/08/25 04/27/25 Rx duloxetine 60 mg capsule,delayed 60 mg PO DAILY #90 caps 02/17/25 0 04/27/25 Rx release mirtazapine 15 mg tablet 15 mg PO QHS #90 tabs 02/17/2501/16 Rx buspirone 5 mg tablet 5 mg PO BID #60 tabs 04/10/25 0801/16 Rx Post menopausal: Yes Patient : No Have you fallen in the past year?: No PFSH Medical History Anemia Anxiety Depression, unspecified COVID-19 Encounter for screening for COVID-19 Chronic diastolic heart failure IBS (irritable bowel syndrome) GERD (gastroesophageal reflux disease) Premature ventricular contraction Premature atrial contraction SVT (supraventricular tachycardia) Essential hypertension Type 2 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 Asthma Congestive heart failure Anxiety and depression Surgical History History of cholecystectomy History of laparoscopic-assiste d vaginal hysterectomy History of hip replacement Hx of appendectomy Family History Father Diabetes Heart disease Mother CVA (cerebral vascular accident) Alzheimer disease Osteoporosis Sister Cancer throat, mouth Infertility Diabetes Blood clot associated with vein wall inflammation Mouth cancer Throat cancer FH: kidney cancer Aunt Breast cancer Social History household members: spouse Smoking Status: Never smoker alcohol intake: never substance use type: does not use caffeine: Yes what type of physical activity do you participate in: none seatbelt use: always do you feel safe at home: Yes additional social history: [place]- 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 She is here for medication follow up. She has been taking Gemtesa 75mg daily. She is not having side effects from the medication. She is doing well with this medication and she would like to continue with this medication. She is now voiding about 6-7 times during the day, and 1-2 times at night. There is some incontinence, more now (more content not included)... Normal [facility] .Auto Diffon 04-13-2025 Basophil, Absolute 0.0 10 3/mcL Normal 0.0-0.3 [facility] Comment on above: Performed By: #### A DIFF, CBC, ANEU, BMP, MDW, GFR #### [facility] [address] [place], [place] [address] Basophils/100 WBC (Bld) 0.5 % Normal 0.0-2.5 [facility] Comment on above: Performed By: #### A DIFF, CBC, ANEU, BMP, MDW, GFR #### [address] [address] Eosinophil, Absolute 0.1 10 3/mcL Normal 0.0-0.7 [facility] Comment on above: Performed By: #### A DIFF, CBC, ANEU, BMP, MDW, GFR #### [address] [address] Eosinophils/100 WBC (Bld) 1.8 % Normal 0.0-6.0 [facility] Comment on above: Performed By: #### A DIFF, CBC, ANEU, BMP, MDW, GFR #### [address] [address] Lymphocyte, Absolute 1.8 10 3/mcL Normal 0.9-4.3 [facility] Comment on above: Performed By: #### A DIFF, CBC, ANEU, BMP, MDW, GFR #### [address] [address] Lymphocytes/100 WBC (Bld) 24.1 % Normal 20.0-40.0 [facility] Comment on above: Performed By: #### A DIFF, CBC, ANEU, BMP, MDW, GFR #### [address] [address] Monocyte, Absolute 0.5 10 3/mcL Normal 0.1-1.4 [facility] Comment on above: Performed By: #### A DIFF, CBC, ANEU, BMP, MDW, GFR #### [address] [address] Monocytes/100 WBC (Bld) 6.3 % Normal 2.0-13.0 [facility] Comment on above: Performed By: #### A DIFF, CBC, ANEU, BMP, MDW, GFR #### [address] [address] Neutrophils/100 WBC (Bld) 67.3 % Normal 50.0-75.0 [facility] Comment on above: Performed By: #### A DIFF, CBC, ANEU, BMP, MDW, GFR #### [address] [place], [place] [address] .GFRon 04-13-2025 Estimated Glomerular Filtration Rate 79 ml/min/1.73sqm Normal [facility] Comment on above: Result Comment: Stages of Chronic Kidney Disease (CKD) Stage Description eGFR(ml/min/1.73 sq.m.) CKD 1 Normal kidney function or >=90 normal kindney function with possible kidney damage (ex. Proteinuria) CKD 2 Kidney damage with mild loss 60-89 of kidney function CKD 3a Mild to moderate loss of kidney 45-59 function CKD 3b Moderate to severe loss of 30-44 of kindey function CKD 4 Severe loss of kidney function 15-29 CKD 5 Kidney failure <15 Note: (go live 2024) the eGFR calculation was updated to the 2020 CKD-EPI creatinine equation without a race factor to calculate the eGFR results. Performed By: #### A DIFF, CBC, ANEU, BMP, MDW, GFR ####[address] [address] .MDWon 04-13-2025 Monocyte Distribution Width 23.65 High 0.00-20.00 [facility] Comment on above: Result Comment: For adults in ED, MDW>20.0 may be associated with a higher risk of sepsis during the first 12hrs of hospital admission Performed By: #### A DIFF, CBC, ANEU, BMP, MDW, GFR #### [address] [place], [place] [address] .NEUABSon 04-13-2025 Neutrophil, Absolute 5.1 10 3/mcL Normal 2.3-8.1 [facility] Comment on above: Performed By: #### A DIFF, CBC, ANEU, BMP, MDW, GFR #### [address] [place], [place] [address] BMPon 04-13-2025 BUN/Creatinine Ratio 18 ratio Normal 7-27 [facility] Comment on above: Performed By: #### A DIFF, CBC, ANEU, BMP, MDW, GFR ####[address] [address] Calcium [Mass/Vol] 8.5 mg/dL Normal 8.4-10.2 [facility] Comment on above: Performed By: #### A DIFF, CBC, ANEU, BMP, MDW, GFR ####[address] [address] Chloride [Moles/Vol] 102 mmol/L Normal 98-107 [facility] Comment on above: Performed By: #### A DIFF, CBC, ANEU, BMP, MDW, GFR ####[place] [address] CO2 [Moles/Vol] 31 mmol/L Normal 23-31 [facility] Comment on above: Performed By: #### A DIFF, CBC, ANEU, BMP, MDW, GFR ####[place] [address] Creatinine [Mass/Vol] 0.80 mg/dL Normal 0.51-0.95 [facility] Comment on above: Performed By: #### A DIFF, CBC, ANEU, BMP, MDW, GFR ####[place] [address] Electrolyte Balance 6.0 mEq/L Normal 4.0-15.0 [facility] Comment on above: Performed By: #### A DIFF, CBC, ANEU, BMP, MDW, GFR ####[place] [id number] Glucose [Mass/Vol] 138 mg/dL High 83-110 [facility] Comment on above: Performed By: #### A DIFF, CBC, ANEU, BMP, MDW, GFR ####[place] [address] Potassium [Moles/Vol] 3.6 mmol/L Normal 3.5-5.1 [facility] Comment on above: Performed By: #### A DIFF, CBC, ANEU, BMP, MDW, GFR ####[address] [address] Sodium [Moles/Vol] 139 mmol/L Normal 136-145 [facility] Comment on above: Performed By: #### A DIFF, CBC, ANEU, BMP, MDW, GFR ####[place] [address] Urea nitrogen [Mass/Vol] 14 mg/dL Normal 7-18 [facility] Comment on above: Performed By: #### A DIFF, CBC, ANEU, BMP, MDW, GFR ####[place] [address] CBCon 04-13-2025 Erythrocyte distribution width (RBC) [Ratio] 13.4 % Normal 11.5-15.5 [facility] Comment on above: Performed By: #### A DIFF, CBC, ANEU, BMP, MDW, GFR #### [place] [address] Hematocrit (Bld) [Volume fraction] 34.1 % Normal 34.0-46.0 [facility] Comment on above: Performed By: #### A DIFF, CBC, ANEU, BMP, MDW, GFR #### [place] [address] Hgb 11.5 G/dL Low 12.0-16.0 [facility] Comment on above: Performed By: #### A DIFF, CBC, ANEU, BMP, MDW, GFR #### [place] [address] MCH (RBC) [Entitic mass] 28.9 pg Normal 27.0-33.0 [facility] Comment on above: Performed By: #### A DIFF, CBC, ANEU, BMP, MDW, GFR #### [place] [address] MCHC 33.8 G/dL Normal 32.0-36.0 [facility] Comment on above: Performed By: #### A DIFF, CBC, ANEU, BMP, MDW, GFR #### [place] [id number] MCV (RBC) [Entitic vol] 85.5 fL Normal 80.0-99.0 [facility] Comment on above: Performed By: #### A DIFF, CBC, ANEU, BMP, MDW, GFR #### [address] [address] Platelet 286 10 3/mcL Normal 150-450 [facility] Comment on above: Performed By: #### A DIFF, CBC, ANEU, BMP, MDW, GFR #### [address] [address] Platelet mean volume (Bld) [Entitic vol] 7.4 fL Normal 6.6-10.5 [facility] Comment on above: Performed By: #### A DIFF, CBC, ANEU, BMP, MDW, GFR #### [address] [address] RBC 3.99 10 6/mcL Low 4.10-5.30 [facility] Comment on above: Performed By: #### A DIFF, CBC, ANEU, BMP, MDW, GFR #### [place] [address] WBC 7.5 10 3/mcL Normal 4.5-10.8 [facility] Comment on above: Performed By: #### A DIFF, CBC, ANEU, BMP, MDW, GFR #### [place] [address] CVFLURVon 04-13-2025 FLU A PCR Negative Normal Negative [facility] Comment on above: Performed By: #### C VFLURV ####[place] [address] FLU B PCR Negative Normal Negative [facility] Comment on above: Performed By: #### C VFLURV ####[place] [address] RSV PCR Negative Normal Negative [facility] Comment on above: Performed By: #### C VFLURV ####[place] [address] SARS-CoV-2 (COVID-19) RNA IRENE+probe Ql (Unsp spec) Negative Normal Negative [facility] Comment on above: Result Comment: Resu lts from the Xpert Xpress CoV-2/Flu/RSV plus test should be correlated with the clinical history, epidemiological data, and other data available to the clinical evaluating the patient. Performance of the Xpert Xpress CoV-2/Flu/RSV plus test has only been established in nasopharyngeal swab specimen. Erroneous test results might occur from improper specimen collection, failure to follow the recommended sample collection, handling and storage procedures, technical error, or sample mix-up. False negative results may occur if a virus is present at a level below the analytical limit of detection. Viral nucleic acid may persist in vivo, independent of virus viability. Detection of analyte target(s) does not imply that the corresponding virus(es) are infectious or are the causative agents for clinical symptoms. Recent patient exposure to FluMist or other live attenuated influenza vaccines may cause inaccurate positive results. Performed By: #### C [facility] ####[address] [address] LABORATORYOrdered By: Jonathan Mercado on 04-13-2025 Blood Glucose Testing Reason Routine (04/13/25 4:32 PM) [facility] Glucose [Mass/Vol] 175 mg/dL High 82 - 115 mg/dL [facility] Blood Glucose Testing Reason Routine (04/13/25 12:04 PM) [facility] Glucose [Mass/Vol] 111 mg/dL Normal 82 - 115 mg/dL [facility] LABORATORYOrdered By: SYSTEM SYSTEM on 04-13-2025 INR Coag (PPP) [Relative time] 2.2 {INR} Invalid Interpretation Code AO HemoHub SS Comment on above: Interpretive Data: Nicol brown [employer] (CHEST, 1992, 102:312S-25S) recommended therapeutic range for oral anticoagulant therapy is: LOW RISK: Prophylaxis of venous thrombosis INR: 2.0-3.0 Treatment of pulmonary embolism 2.0-3.0 Prevention of systemic embolism 2.0-3.0 HIGH RISK: Mechanical prosthetic valves 2.5-3.5 PT Coag (PPP) [Time] 25.5 s High 9.0 - 1 4.4 seconds AO HemoHub SS Basophils (Bld) [#/Vol] 0.0 103/mcL Normal 0.0 - 0.3 10^3/mcL AO Workflow SS Basophils/100 WBC (Bld) 0.5 % Normal 0.0 - 2.5 % AO Workflow SS Calcium [Mass/Vol] 8.5 mg/dL Normal 8.4 - 10. 2 mg/dL AO ADM SS Chloride [Moles/Vol] 102 mmol/L Normal 98 - 10 7 mmol/L AO ADM SS CO2 [Moles/Vol] 31 mmol/L Normal 23 - 31 mmol/L AO ADM SS Creatinine [Mass/Vol] 0.80 mg/dL Normal 0.51 - 0.95 mg/dL AO ADM SS Electrolyte Balance 6.0 mEq/L Normal 4.0 - 15 .0 mEq/L AO ADM SS Eosinophil, Absolute 0.1 103/mcL Normal 0.0 - 0 .7 10^3/mcL AO Workflow SS Eosinophils/100 WBC (Bld) 1.8 % Normal 0.0 - 6.0 % AO Workflow SS Erythrocyte distribution width (RBC) [Ratio] 13.4 % Normal 11.5 - 15.5 % AO Workflow SS Estimated Glomerular Filtration Rate 79 ml/min/1.73sqm Invalid Interpretation Code AO Chemistry S Comment on above: Interpretive Data: Stages of Chronic Kidney Disease (CKD) Stage Description eGFR(ml/min/1.73 sq.m.) CKD 1 Normal kidney function or >=90 normal kindney function with possible kidney damage (ex. Proteinuria) CKD 2 Kidney damage with mild loss 60-89 of kidney function CKD 3a Mild to moderate loss of kidney 45-59 function CKD 3b Moderate to severe loss of 30-44 of kindey function CKD 4 Severe loss of kidney function 15-29 CKD 5 Kidney failure <15 Note: (go live 2024) the eGFR calculation was updated to the 2020 CKD-EPI creatinine equation without a race factor to calculate the eGFR results. Glucose [Mass/Vol] 138 mg/dL High 83 - 110 mg/dL AO ADM SS Hematocrit (Bld) [Volume fraction] 34.1 % Normal 34.0 - 46.0 % AO Workflow SS Hemoglobin (Bld) [Mass/Vol] 11.5 G/dL Low 12.0 - 16.0 G/dL AO Workflow SS Lymphocytes (Bld) [#/Vol] 1.8 103/mcL Normal 0.9 - 4.3 10^3/mcL AO Workflow SS Lymphocytes/100 WBC (Bld) 24.1 % Normal 20.0 - 40.0 % AO Workflow SS MCH (RBC) [Entitic mass] 28.9 pg Normal 27.0 - 33.0 pg AO Workflow SS MCHC 33.8 G/dL Normal 32.0 - 36.0 G/dL AO Workflow SS MCV (RBC) [Entitic vol] 85.5 fL Normal 80.0 - 99.0 fL AO Workflow SS Monocyte distribution width Auto (Bld) [Entitic vol] 23.65 1 High 0.00 - 20.00 AO Workflow SS Comment on above: Result Comment: For adults in ED, MDW>20.0 may be associated with a higher risk of sepsis during the first 12hrs of hospital admission Monocytes (Bld) [#/Vol] 0.5 103/mcL Normal 0.1 - 1.4 10^3/mcL AO Workflow SS Monocytes/100 WBC (Bld) 6.3 % Normal 2.0 - 13.0 % AO Workflow SS Neutrophils (Bld) [#/Vol] 5.1 103/mcL Normal 2.3 - 8.1 10^3/mcL AO Workflow SS Neutrophils/100 WBC (Bld) 67.3 % Normal 50.0 - 75.0 % AO Workflow SS Platelet mean volume (Bld) [Entitic vol] 7.4 fL Normal 6.6 - 10.5 fL AO Workflow SS Platelets (Bld) [#/Vol] 286 103/mcL Normal 150 - 450 10^3/mcL AO Workflow SS Potassium [Moles/Vol] 3.6 mmol/L Normal 3.5 - 5.1 mmol/L AO ADM SS RBC (Bld) [#/Vol] 3.99 106/mcL Low 4.10 - 5.3 0 10^6/mcL AO Workflow SS Sodium [Moles/Vol] 139 mmol/L Normal 136 - 145 mmol/L AO ADM SS Urea nitrogen [Mass/Vol] 14 mg/dL Normal 7 - 18 mg/dL AO ADM SS Urea nitrogen/Creatinine [Mass ratio] 18 ratio Normal 7 - 27 ratio AO ADM SS WBC (Bld) [#/Vol] 7.5 103/mcL Normal 4.5 - 10.8 10^3/mcL AO Workflow SS LABORATORYOrdered By: Niurka Oliveros on 04-13-2025 Group A Strep PCR Int See Interp 5 *NA* (04/13/25 6:45 AM) Invalid Interpretation Code AO Auto Urine SS Comment on above: Result Comment: Clinical Interpretation: Positive Results: Positive for Streptococcus pyogenes by PCR. Positive test results do not rule out co-infection with other pathogens. Test results should be interpreted in conjunction with other laboratory and clinical data. The Xpert Xpress Strep A Assay is a real-time polymerase chain reaction (PCR) based qualitative in vitro diagnostic test for the direct detection of Streptococcus pyogenes (Group A Beta hemolytic Streptococcus) in throat swab specimens from patients with signs and symptoms of pharyngitis. The assay is not intended to monitor treatment for Group A Streptococcus infections. S. pyogenes DNA IRENE+probe Ql (Throat) Detected *ABN* (04/13/25 6:45 AM) Invalid Interpretation Code Not Detected AO Auto Urine SS FLUAV RNA IRENE+probe Ql (Resp) Negative (04/13/25 6:37 AM) Normal Negative AO Auto Urine SS FLUBV RNA IRENE+probe Ql (Resp) Negative (04/13/25 6:37 AM) Normal Negative AO Auto Urine SS RSV RNA IRENE+probe Ql (Resp) Negative (04/13/25 6:37 AM) Normal Negative AO Auto Urine SS SARS-CoV-2 (COVID-19) RNA IRENE+probe Ql (Resp) Negative 4 (04/13/25 6:37 AM) Normal Negative AO Auto Urine SS Comment on above: Interpretive Data: R esults from the Xpert Xpress CoV-2/Flu/RSV plus test should be correlated with the clinical history, epidemiological data, and other data available to the clinical evaluating the patient. Performance of the Xpert Xpress CoV-2/Flu/RSV plus test has only been established in nasopharyngeal swab specimen. Erroneous test results might occur from improper specimen collection, failure to follow the recommended sample collection, handling and storage procedures, technical error, or sample mix-up. False negative results may occur if a virus is present at a level below the analytical limit of detection. Viral nucleic acid may persist in vivo, independent of virus viability. Detection of analyte target(s) does not imply that the corresponding virus(es) are infectious or are the causative agents for clinical symptoms. Recent patient exposure to FluMist or other live attenuated influenza vaccines may cause inaccurate positive results. LABORATORYOrdered By: Dorota Francois on 04-13-2025 Appearance (U) Cloudy *ABN* (04/13/25 6:37 AM) Invalid Interpretation Code Clear AO Auto Urine SS Bacteria LM.HPF (Urine sed) [#/Area] 4 /[HPF] Invalid Interpretation Code Negative AO Auto Urine SS Bilirubin Ql (U) Negative (04/13/25 6:37 AM) Normal Negative AO Auto Urine SS Color (U) Yellow (04/13/25 6:37 AM) Normal AO Auto Urine SS Glucose Test strip (U) [Mass/Vol] Negative Normal Negative AO Auto Urine SS Hemoglobin Auto test strip (U) [Mass/Vol] Trace (04/13/25 6:37 AM) Normal Negative AO Auto Urine SS Ketones Ql (U) Negative Normal Negative AO Auto Ur ine SS UA Leuk Est Moderate *ABN* (04/13/25 6:37 AM) Invalid Interpretation Code Negative AO Auto Urine SS UA Nitrite Positive *ABN* (04/13/25 6:37 AM) Invalid Interpretation Code Negative AO Auto Urine SS UA pH 6.0 (04/13/25 6:37 AM) Normal 5.0 - 8.0 AO Auto Urine SS UA Protein Negative Normal Negative AO Auto Urine SS UA RBC 0-2 /HPF Normal 0-2 AO Auto Urine SS UA Spec Grav <=1.005 *ABN* (04/13/25 6:37 AM) Invalid Interpretation Code 1.015-1.025 AO Auto Urine SS UA Specimen Type Clean Catch (04/13/25 6:37 AM) Normal AO Auto Urine SS UA Squam Epithelial 10-20 /HPF Normal 0-20 AO Au to Urine SS UA Urobilinogen 0.2 E.U./dL Normal 0.2-1.0 AO Auto Urine SS WBC LM.HPF (Urine sed) [#/Area] LOADED /HPF Invalid Interpretation Code 0-5 AO Auto Urine SS No Panel Informationon 04-13 Culture Urine Specimen received in lab. [facility] PROon 04-13-2025 PT Coag (PPP) [Time] 25.5 s High 9.0-14.4 [facility] Comment on above: Order Comment: order ed secondary to warfarin order Performed By: #### P RO ####[address] [address] PT International Ratio 2.2 Normal [facility] Comment on above: Order Comment: order ed secondary to warfarin order Result Comment: [employer] (CHEST, 1992, 102:312S-25S) recommended therapeutic range for oral anticoagulant therapy is: LOW RISK: Prophylaxis of venous thrombosis INR: 2.0-3.0 Treatment of pulmonary embolism 2.0-3.0 Prevention of systemic embolism 2.0-3.0 HIGH RISK: Mechanical prosthetic valves 2.5-3.5 Performed By: #### P RO ####[address] [address] STREPAon 04-13-2025 Group A Strep PCR Detected Abnormal Not Detected [facility] Comment on above: Performed By: #### S TREPA #### [address] [address] Group A Strep PCR Int See Interp Normal [facility] Comment on above: Result Comment: Clinical Interpretation: Positive Results: Positive for Streptococcus pyogenes by PCR. Positive test results do not rule out co-infection with other pathogens. Test results should be interpreted in conjunction with other laboratory and clinical data. The Xpert Xpress Strep A Assay is a real-time polymerase chain reaction (PCR) based qualitative in vitro diagnostic test for the direct detection of Streptococcus pyogenes (Group A Beta hemolytic Streptococcus) in throat swab specimens from patients with signs and symptoms of pharyngitis. The assay is not intended to monitor treatment for Group A Streptococcus infections. Performed By: #### S TREPA #### [address] [address] UAon 04-13-2025 Color (U) Yellow Normal [facility] Comment on above: Performed By: #### U A, UAMIC ####[id number] [place] [address] Glucose (U) [Mass/Vol] Negative Normal Negative [facility] Comment on above: Performed By: #### U A, UAMIC ####[address] [place] [address] Ketones Ql (U) Negative Normal Negative [facility] Comment on above: Performed By: #### U A, UAMIC ####[address] [place] [address] UA Appear Cloudy Abnormal Clear [facility] Comment on above: Performed By: #### U A, UAMIC ####[address] [place] [address] UA Blood Trace Normal Negative [facility] Comment on above: Performed By: #### U A, UAMIC ####[address] [place] [address] UA Leuk Est Moderate Abnormal Negative [facility] Comment on above: Performed By: #### U A, UAMIC ####[address] [place] [address] UA Nitrite Positive Abnormal Negative [facility] Comment on above: Performed By: #### U A, UAMIC ####[address] [place] [address] UA pH 6.0 Normal 5.0 - 8.0 [facility] Comment on above: Performed By: #### U A, UAMIC ####[address] [place] [address] UA Protein Negative Normal Negative [facility] Comment on above: Performed By: #### U A, UAMIC ####[address] [place] [address] UA Spec Grav <=1.005 Abnormal 1.015-1.025 [facility] Comment on above: Performed By: #### U A, UAMIC ####[address] [place] [address] UA Specimen Type Clean Catch Normal [facility] Comment on above: Performed By: #### U A, UAMIC ####[address] [place], [place] [address] UA Urobilinogen 0.2 E.U./dL Normal 0.2-1.0 [facility] Comment on above: Performed By: #### U A, UAMIC ####[address] [place], [place] [address] Urobilinogen (U) [Mass/Vol] Negative Normal Negative [facility] Comment on above: Performed By: #### U A, UAMIC ####[address] [place], [place] [address] UAMICon 04-13-2025 UA Bacteria 4+ /hpf Abnormal Negative [facility] Comment on above: Performed By: #### U A, UAMIC ####[id number] [place] [address] UA RBC 0-2 Normal 0-2 [facility] Comment on above: Performed By: #### U A, UAMIC ####[place] [address] [place] [address] UA Squam Epithelial 10-20 Normal 0-20 [facility] Comment on above: Performed By: #### U A, UAMIC ####[id number] [place] [address] UA WBC LOADED Abnormal 0-5 [facility] Comment on above: Performed By: #### U A, UAMIC ####[place] [address] [place] [address] XR CHEST 1 VIEWon 04-13-2025 XR CHEST 1 VIEW ORIGINAL EXAMINATION: ONE XRAY VIEW OF THE CHEST04/13/2025 6:55 am CHEST ONE VIEW AP/PA COMPARISON: None HISTORY: ORDERING SYSTEM PROVIDED HISTORY: Reason for Exam: SOB/cough/fever FINDINGS: The cardiomediastinal silhouette is normal in appearance. No consolidation, pleural effusion, or vascular congestion is seen. The osseous structures are intact. IMPRESSION: No acute findings. Interpreted by: Donita Goldman MD Preliminary Report By: Donita Goldman MD Electronically signed By Donita Goldman MD Dictated Date: 04/13/2025 7:10:31 AM Prelim Date: 04/13/2025 7:10:47 AM Sign Date: 04/13/2025 7:10:47 AM Ordering Provider: CHENG ALLISON [facility] MR/BMS.BPon 04-10-2025 MR/BMS.BP [facility] [address] [facility] [address], [address] [place] [address] OFFICE VISIT Date of Service: 04/10/25 MR#: [id number] Acct: [id number] Name: HEAVEN MONROE Rep #: [id number] : 1955 Provider: EV coelho Age/Sex: 69/F [place] [facility] [place] Status: Signed Intake Vital Signs 02/17/25 14:27 04/09/25 10:18 04/10/25 13:01 Height 5 ft 4 in 5 ft 4 in 5 ft 4 in Weight: 229 lb BMI 39.3 BP 138/82 H 139/78 H Blood Pressure Location Lt brachial Rt radial Position Sitting Sitting Respiration 16 16 Pulse 81 90 Pulse Source Monitor Monitor Temp 97.8 F Temperature Source Temporal Artery Pulse Oximetry (%) 97 Oxygen Delivery Method room air Oxygen Flow Rate (L/min) 97 BP Intake Visit Reasons: 8wfu Allergies KENYA Inhibitors Allergy (Verified 04/09/25 14:31) cough clindamycin Allergy (Verified 04/09/25 14:31) Hives liraglutide (From Victoza) Allergy (Verified 04/09/25 14:31) lump in throat metoprolol Allergy (Verified 04/09/25 14:31) unk propoxyphene napsylate (From Darvocet-N 100) Allergy (Verified 04/09/25 14:31) Unknown repaglinide Adverse Reaction (Severe, Verified 04/09/25 14:31) Back Pain, PULIDO, Nausea Have you fallen in the past year?: No PFSH Medical History Anxiety Depression, unspecified COVID-19 Encounter for screening for COVID-19 Chronic diastolic heart failure IBS (irritable bowel syndrome) GERD (gastroesophageal reflux disease) Premature ventricular contraction Premature atrial contraction SVT (supraventricular tachycardia) Essential hypertension Type 2 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 Asthma Congestive heart failure Anxiety and depression Surgical History (Reviewed 04/09/25 @ 14:37 by Mary Rowe VOYAGE MANAGEMENT SYSTEM OPERATOR, VOYAGE MANAGEMENT SYSTEM OPERATOR-C) History of cholecystectomy History of laparoscopic-assiste d vaginal hysterectomy History of hip replacement Hx of appendectomy Family History Father Diabetes Heart disease Mother CVA (cerebral vascular accident) Alzheimer disease Sister Cancer throat, mouth Social History household members: spouse Smoking Status: Never smoker alcohol intake: never substance use type: does not use caffeine: Yes what type of physical activity do you participate in: none seatbelt use: always do you feel safe at home: Yes additional social history: Arnulfo- Retired from [employer] History of Present Illness History provided by: patient HPI: Heaven Monroe is a 69 year old female patient presenting today for a follow up evaluation. Reports she has been doing well since last appointment. Does report some some more physical pain than before. Reports she has been feeling depressed since last appointment and wants to spend her day in bed but doesn't. Denies SI/HI. Feels like she is the only one working toward things. Has been hopeful for her grandson to come back home however her daughter got into some trouble recently and now is unsure of what will come of this. Has not been sleeping well. Does continue to wear Cpap but is only sleeping about 3-4 hours per night. Has tried taking melatonin and felt it was beneficial. Had started seeing someone for therapy but had only gone one time and has not been back. Reports anxiety has been reduced. Has been eating well. Has been feeling more irritable recently. Previous similar episode: Yes Age of first onset of symptoms: 31-40 years Review of Systems Constitutional Reports: change in weight (gain ) and fatigue; Denies: fever(s) or chills Eyes Denies: change in vision or blurry vision Ears, Nose, Mouth, Throat Denies: throat pain or neck pain Cardiovascular Denies: chest pain, palpitations or dyspnea Respiratory Denies: dyspnea or wheezing Gastrointestinal Reports: nausea (Occ, after eating), diarrhea (IBS) and constipation (IBS); Denies: abdominal pain Genitourinary Denies: dysuria, urinary frequency or urinary urgency Musculoskeletal Reports: back pain (Occ), extremity swelling and joint pain (r knee especially painful); Denies: neck pain Integumentary/Breast Denies: rash, pruritus or erythema Neurological Reports: headache(s) Psychiatric Reports: anxiety, change in sleep pattern, hopelessness, loss of interest and irritability; Denies: panic attacks, paranoia, memory loss, difficulty concentrating, visual hallucinations, auditory hallucinations, suicidal ideation or homicidal ideation Endocrine Reports: fatigue; Denies: polyuria or polydipsia Hematologic/Lymphati c Denies: easy bruising Allergic/Immunologic Denies: wheezing Exam Mental Status Exam - Psych Appearance casually dressed, adequately groomed and no apparent distress Attitude (more content not included)... Normal [facility] Pulmonary Visit Reporton Pulmonary Visit Report [facility] of [address] [place] [address] OFFICE VISIT Date of Service: 04/09/25 MR#: [id number] Acct: [id number] Name: HEAVEN MONROE Rep #: [id number] : 1955 Provider: EV Rowe Age/Sex: 69/F [place] [facility] [place] Status: Signed Assessment and Plan Assessment and Plan (1) MITZI (obstructive sleep apnea): Status: Chronic Comment: Auto BiPAP with residual AHI of 0.3 Plan: Deteriorated. The patient is not being able to tolerate auto BiPAP. I am going to send her to PAP education to evaluate her current settings and mask/headgear. The patient believes that she will be able to tolerate some type of a nasal interface. I am not sure if her current pressure settings will allow for this to occur. Follow-up in the office in 3 months to evaluate her response to recommendations made at Pap education. I do not believe that a titration study is necessary at this time. (2) Asthma: Status: Chronic Qualifiers: Asthma severity: mild Asthma persistence: intermittent Asthma complication type: uncomplicated Qualified Code(s): J45.20 - Mild intermittent asthma, uncomplicated Plan: Deteriorated. The patient is not in exacerbation today, however she is not on her maintenance medications because they are too expensive. I am placing her on DuoNebs and ordering them through the [employer]. This should be covered by her Medicare part B. I offered to place the patient on budesonide in place of Advair, but she believes that her symptoms are stable and does not want to change this at this point. Follow-up in 3 months to make sure that the patient was successful in getting nebulized medications and that they are affordable. Orders: Orders Self Mgmnt Educ Training Today G47.33 - Obstructive sleep apnea (adult) (pediatric) Plan Details Additional Comments: This note was generated with Par[employer] dictation software. It may contain incorrect words, spelling, and punctuation that were not noted in checking the note before signing. Follow Up: 3 Months HPI HPI Comments Details: This patient presents to the office today for routine follow-up of her asthma and obstructive sleep apnea. She is ambulatory with the use of a cane and on room air. She has not recently been seen in the ED or urgent care for any respiratory illness. She has not required any antibiotics or prednisone for any breathing problems. She is a lifelong never smoker. She is on Advair about once a week. She denies any medication side effect such sore throat or thrush. She uses the albuterol rescue inhaler about every other day. She is using these medications with sparingly as that they are too expensive. She denies any difficulty with shortness of breath. She denies any cough, sputum production or hemoptysis. She denies any wheezing, chest tightness, chest pain or palpitations. She also denies any fever, chills or body aches. She is is trying to be as compliant with Pap therapy as much as she can. She has never found it to be comfortable. Sometimes she cannot tolerate wearing the full facemask at all. She admits that most the time that she is wearing the BiPAP she is not even sleeping. She denies any difficulty with dry mouth or mask leaks.She is not requiring naps. Compliance report for the past 30 days shows 80 % compliance with an average use of 3 hours and 38 minutes on nights being used. Current setting is auto BiPAP with pressures typically being used at 14.2-15.4/10 0.2-11.4 cmH2O. Residual AHI 0.6 events per hour. Leaks continue to be somewhat of an issue. Intake Vital Signs 10/10/24 07:57 04/09/25 10:18 Height 5 ft 4 in 5 ft 4 in Weight: 229 lb BMI 39.3 BP 139/78 H Blood Pressure Location Rt radial Position Sitting Respiration 16 Pulse 90 Pulse Source Monitor Temp 97.8 F Temperature Source Temporal Artery Pulse Oximetry (%) 97 Oxygen Delivery Method room air Oxygen Flow Rate (L/min) 97 Intake Visit Reasons: 6 M FU Chief Complaint: 6 mo f/u DME Vendor: [employer] Accompanied by: Self Is patient in pain?: No Allergies KENYA Inhibitors Allergy (Verified 04/09/25 14:31) cough clindamycin Allergy (Verified 04/09/25 14:31) Hives liraglutide (From Victoza) Allergy (Verified 04/09/25 14:31) lump in throat metoprolol Allergy (Verified 04/09/25 14:31) unk propoxyphene napsylate (From Darvocet-N 100) Allergy (Verified 04/09/25 14:31) Unknown repaglinide Adverse Reaction (Severe, Verified 04/09/25 14:31) Back Pain, PULIDO, Nausea Medications ???Medication ???Instructions ???Recorded ???Confirmed ???Type tramadol 50 mg tablet 50 mg PO Q6H PRN PRN Pain #8 tabs 04/09/14 04/09/25 Rx meclizine 25 mg tablet 25 mg PO TID PRN Dizziness 9 04/09/25 History gabapentin 100 mg capsule 1 (more content not included)... Normal [facility] Urine Cultureon 03-05-2025 U[facility] Culture exhibits no growth. Normal [facility] Comment on above: Performed By: #### L 3300.0940, L5000.0012, L100.0100, L501.9985, L500.4050, L500.4100, L503.6150, L503.6550, L502.0250 #### [facility] [address] [place], [place], [address] MR/NELSON.BPon 02-17-2025 MR/NELSON.BP [address], [address] [place], [place] [address] OFFICE VISIT Date of Service: 02/17/25 MR#: [id number] Acct: [id number] Name: HEAVEN MONROE Rep #: [id number] : 1955 Provider: EV coelho Age/Sex: 69/F [place] [facility] [place] Status: Signed Intake Vital Signs 01/15/25 13:55 02/17/25 14:27 Height 5 ft 4 in 5 ft 4 in Weight: 221 lb BMI 37.9 BP 127/83 H 138/82 H Blood Pressure Location Lt brachial Lt brachial Position Sitting Sitting Respiration 16 16 Pulse 89 81 Pulse Source Monitor Monitor BP Intake Visit Reasons: 1 M FU Accompanied by: Self Allergies KENYA Inhibitors Allergy (Verified 02/17/25 14:28) cough clindamycin Allergy (Verified 02/17/25 14:28) Hives liraglutide (From Victoza) Allergy (Verified 02/17/25 14:28) lump in throat metoprolol Allergy (Verified 02/17/25 14:28) unk propoxyphene napsylate (From Darvocet-N 100) Allergy (Verified 02/17/25 14:28) Unknown repaglinide Adverse Reaction (Severe, Verified 02/17/25 14:28) Back Pain, PULIDO, Nausea Medications ???Medication ???Instructions ???Recorded ???Confirmed ???Type tramadol 50 mg tablet 50 mg PO Q6H PRN PRN Pain #8 tabs 04/09/14 02/17/25 Rx meclizine 25 mg tablet 25 mg PO TID PRN Dizziness 9 02/17/25 History gabapentin 100 mg capsule 100 mg PO TID 03/29/21 02/17/25 Hi story warfarin 2 mg tablet 2 mg PO SUTUTHSA 03/29/21 02/17/25 History furosemide 20 mg tablet 20 mg PO DAILY PRN Swelling 02/17/25 History omeprazole magnesium 20 mg 20 mg PO DAILY 06/01/22 02/17/25 H istory tablet,delayed release (Prilosec OTC) warfarin 5 mg tablet 3 mg PO MOWEFR 06/01/22 02/17/25 H istory vibegron 75 mg tablet (Gemtesa) 75 mg PO DAILY 01/08/23 02/17/25 H istory atorvastatin 40 mg tablet 40 mg PO QHS 07/18/23 02/17/25 His tory potassium chloride 20 mEq 20 meq PO BID 07/18/23 02/17/25 Hi story tablet,extended release ondansetron 4 mg disintegrating 4 mg PO Q8H PRN PRN Nausea #10 tab s 11/04/23 02/17/25 Rx tablet ropinirole 3 mg tablet 3 mg PO QHS restless legs 01/02/24 02/17/25 History losartan 100 mg tablet 100 mg PO QDAY 07/11/24 02/17/25 H istory metformin 500 mg tablet 500 mg PO BID 07/11/24 02/17/25 Hi story albuterol sulfate 90 mcg/actuation 2 puff inhalation Q6H PRN Wheezi ng 10/10/24 02/17/25 Rx aerosol inhaler (Ventolin HFA) #8.5 grams amlodipine 5 mg tablet 5 mg PO QDAY 10/10/24 02/17/25 His tory fluticasone propionate 230 2 inh inhalation BID #3 ea 5 02/17/25 Rx mcg-salmeterol 21 mcg/actuation HFA inhaler (Advair HFA) hydroxyzine HCl 25 mg tablet 25 mg PO TID PRN anxiety #90 tabs 01/08/25 02/17/25 Rx duloxetine 60 mg capsule,delayed 60 mg PO DAILY #90 caps 02/17/25 0 02/17/25 Rx release mirtazapine 15 mg tablet 15 mg PO QHS #90 tabs 02/17/25 Rx Have you fallen in the past year?: No PFSH Medical History (Reviewed 10/10/24 @ 14:37 by Mary Rowe VOYAGE MANAGEMENT SYSTEM OPERATOR, VOYAGE MANAGEMENT SYSTEM OPERATOR-C) Anxiety Depression, unspecified COVID-19 Encounter for screening for COVID-19 Chronic diastolic heart failure IBS (irritable bowel syndrome) GERD (gastroesophageal reflux disease) Premature ventricular contraction Premature atrial contraction SVT (supraventricular tachycardia) Essential hypertension Type 2 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 Asthma Congestive heart failure Anxiety and depression Surgical History (Reviewed 10/10/24 @ 14:37 by Mary Rowe VOYAGE MANAGEMENT SYSTEM OPERATOR, VOYAGE MANAGEMENT SYSTEM OPERATOR-C) History of cholecystectomy History of laparoscopic-assiste d vaginal hysterectomy History of hip replacement Hx of appendectomy Family History Father Diabetes Heart disease Mother CVA (cerebral vascular accident) Alzheimer disease Sister Cancer throat, mouth Social History household members: spouse Smoking Status: Never smoker alcohol intake: never substance use type: does not use caffeine: Yes what type of physical activity do you participate in: none seatbelt use: always do you feel safe at home: Yes additional social history: Arnulfo- Retired from [employer] HPI History of Present Illness History provided by: patient HPI: Heaven Monroe is a 69 year old female patient presenting today for a follow up evaluation. Reports she has been painting and trying to get her house back in order. Reports mood has been better than before. Admits to sometimes feelings of depression which is typically triggered by not seeing her grandson and by not feeling respected by her daughter and nephew. Feelings of depression are less than half the time. Denies SI/HI. Admits to feelings of anxiety that have reduced since last appointment. Has been taking PRN medication for an (more content not included)... Normal [facility] MR/BMS.BPon 01-15-2025 MR/BMS.BP [facility] [address] [place] [address], [facility] [address] [place] [address] OFFICE VISIT Date of Service: 01/15/25 MR#: [id number] Acct: [id number] Name: HEAVEN MONROE Rep #: [id number] : 1955 Provider: EV coelho Age/Sex: 69/F [place] [facility] [place] Status: Signed Intake Vital Signs 10/30/24 13:00 01/15/25 13:55 Height 5 ft 4 in 5 ft 4 in Weight: 221 lb BMI 37.9 BP 113/63 127/83 H Blood Pressure Location Lt brachial Lt brachial Position Sitting Sitting Respiration 16 16 Pulse 78 89 Pulse Source Monitor Monitor BP Intake Visit Reasons: follow up Accompanied by: Self Allergies KENYA Inhibitors Allergy (Verified 01/15/25 14:20) cough clindamycin Allergy (Verified 01/15/25 14:20) Hives liraglutide (From Victoza) Allergy (Verified 01/15/25 14:20) lump in throat metoprolol Allergy (Verified 01/15/25 14:20) unk propoxyphene napsylate (From Darvocet-N 100) Allergy (Verified 01/15/25 14:20) Unknown repaglinide Adverse Reaction (Severe, Verified 01/15/25 14:20) Back Pain, PULIDO, Nausea Medications ???Medication ???Instructions ???Recorded ???Confirmed ???Type tramadol 50 mg tablet 50 mg PO Q6H PRN PRN Pain #8 tabs 04/09/14 01/15/25 Rx meclizine 25 mg tablet 25 mg PO TID PRN Dizziness 9 01/15/25 History gabapentin 100 mg capsule 100 mg PO TID 03/29/21 01/15/25 Hi story warfarin 2 mg tablet 2 mg PO SUTUTHSA 03/29/21 01/15/25 History furosemide 20 mg tablet 20 mg PO DAILY PRN Swelling 01/15/25 History omeprazole magnesium 20 mg 20 mg PO DAILY 06/01/22 01/15/25 H istory tablet,delayed release (Prilosec OTC) warfarin 5 mg tablet 3 mg PO MOWEFR 06/01/22 01/15/25 H istory vibegron 75 mg tablet (Gemtesa) 75 mg PO DAILY 01/08/23 01/15/25 H istory atorvastatin 40 mg tablet 40 mg PO QHS 07/18/23 01/15/25 His tory potassium chloride 20 mEq 20 meq PO BID 07/18/23 01/15/25 Hi story tablet,extended release ondansetron 4 mg disintegrating 4 mg PO Q8H PRN PRN Nausea #10 tab s 11/04/23 01/15/25 Rx tablet ropinirole 3 mg tablet 3 mg PO QHS restless legs 01/02/24 01/15/25 History losartan 100 mg tablet 100 mg PO QDAY 07/11/24 01/15/25 H istory metformin 500 mg tablet 500 mg PO BID 07/11/24 01/15/25 Hi story albuterol sulfate 90 mcg/actuation 2 puff inhalation Q6H PRN Wheezi ng 10/10/24 01/15/25 Rx aerosol inhaler (Ventolin HFA) #8.5 grams amlodipine 5 mg tablet 5 mg PO QDAY 10/10/24 01/15/25 His tory fluticasone propionate 230 2 inh inhalation BID #3 ea 5 01/15/25 Rx mcg-salmeterol 21 mcg/actuation HFA inhaler (Advair HFA) duloxetine 60 mg capsule,delayed 60 mg PO DAILY #90 caps 10/30/24 0 01/15/25 Rx release mirtazapine 7.5 mg tablet 7.5 mg PO QHS #90 tabs 10/30/24 Rx hydroxyzine HCl 25 mg tablet 25 mg PO TID PRN anxiety #90 tabs 01/08/25 01/15/25 Rx Have you fallen in the past year?: No PFSH Medical History (Reviewed 10/10/24 @ 14:37 by Mary Rowe VOYAGE MANAGEMENT SYSTEM OPERATOR, VOYAGE MANAGEMENT SYSTEM OPERATOR-C) Anxiety Depression, unspecified COVID-19 Encounter for screening for COVID-19 Chronic diastolic heart failure IBS (irritable bowel syndrome) GERD (gastroesophageal reflux disease) Premature ventricular contraction Premature atrial contraction SVT (supraventricular tachycardia) Essential hypertension Type 2 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 Asthma Congestive heart failure Anxiety and depression Surgical History (Reviewed 10/10/24 @ 14:37 by Mary Rowe VOYAGE MANAGEMENT SYSTEM OPERATOR, VOYAGE MANAGEMENT SYSTEM OPERATOR-C) History of cholecystectomy History of laparoscopic-assiste d vaginal hysterectomy History of hip replacement Hx of appendectomy Family History (Reviewed 10/10/24 @ 14:37 by Mary Rowe VOYAGE MANAGEMENT SYSTEM OPERATOR, VOYAGE MANAGEMENT SYSTEM OPERATOR-C) Father Diabetes Heart disease Mother CVA (cerebral vascular accident) Alzheimer disease Sister Cancer throat, mouth Social History (Reviewed 10/10/24 @ 14:37 by Mary Rowe VOYAGE MANAGEMENT SYSTEM OPERATOR, VOYAGE MANAGEMENT SYSTEM OPERATOR-C) household members: spouse Smoking Status: Never smoker alcohol intake: never substance use type: does not use caffeine: Yes what type of physical activity do you participate in: none seatbelt use: always do you feel safe at home: Yes additional social history: Arnulfo- Retired from [employer] HPI History of Present Illness History provided by: patient HPI: Heaven Monroe is a 69 year old female patient presenting today for a follow up evaluation. Reports her and her daughter have been getting along better. However this is due to het grandson being taken away by CPS. Also reports her had an OR and now has a pacemaker. Reports when they came to take her grandson her daughter resisted and was arrested. States her daughter moved out of their home. Patient is trying to get custody of her grandson. Reports she has been managing things well but is upset about her grandson. Reports (more content not included)... Normal [facility] .Auto Diffon 11-01-2024 Basophil, Absolute 0.0 10 3/mcL Normal 0.0-0.2 [facility] Comment on above: Performed By: #### M DW, PBNP, BMP, TROPHS, CBC, GFR, ADIFF, ANEU ####[place] [place], [place] [address] Basophils/100 WBC (Bld) 0.2 % Normal 0.0-2.5 [facility] Comment on above: Performed By: #### M DW, PBNP, BMP, TROPHS, CBC, GFR, ADIFF, ANEU ####[address] [place], [place] [address] Eosinophil, Absolute 0.1 10 3/mcL Normal 0.0-0.7 [facility] Comment on above: Performed By: #### M DW, PBNP, BMP, TROPHS, CBC, GFR, ADIFF, ANEU ####[address] [place], [place] [address] Eosinophils/100 WBC (Bld) 2.3 % Normal 0.0-7.0 [facility] Comment on above: Performed By: #### M DW, PBNP, BMP, TROPHS, CBC, GFR, ADIFF, ANEU ####[address] [place], [place] [address] Lymphocyte, Absolute 2.1 10 3/mcL Normal 0.9-4.3 [facility] Comment on above: Performed By: #### M DW, PBNP, BMP, TROPHS, CBC, GFR, ADIFF, ANEU ####[address] [place] [place], [place] [address] Lymphocytes/100 WBC (Bld) 32.0 % Normal 20.0-40.0 [facility] Comment on above: Performed By: #### M DW, PBNP, BMP, TROPHS, CBC, GFR, ADIFF, ANEU ####[facility] [place], [place] [address] Monocyte, Absolute 0.3 10 3/mcL Normal 0.1-1.4 [facility] Comment on above: Performed By: #### M DW, PBNP, BMP, TROPHS, CBC, GFR, ADIFF, ANEU ####[facility] [place], [place] [address] Monocytes/100 WBC (Bld) 5.7 % Normal 2.0-13.0 [facility] Comment on above: Performed By: #### M DW, PBNP, BMP, TROPHS, CBC, GFR, ADIFF, ANEU ####[address] [place], [place] [address] Neutrophils/100 WBC (Bld) 59.5 % Normal 50.0-75.0 [facility] Comment on above: Performed By: #### M DW, PBNP, BMP, TROPHS, CBC, GFR, ADIFF, ANEU ####[address] [address] .GFRon 11-01-2024 Estimated Glomerular Filtration Rate 82 ml/min/1.73sqm Normal [facility] Comment on above: Result Comment: Stages of Chronic Kidney Disease (CKD) Stage Description eGFR(ml/min/1.73 sq.m.) CKD 1 Normal kidney function or >=90 normal kindney function with possible kidney damage (ex. Proteinuria) CKD 2 Kidney damage with mild loss 60-89 of kidney function CKD 3a Mild to moderate loss of kidney 45-59 function CKD 3b Moderate to severe loss of 30-44 of kindey function CKD 4 Severe loss of kidney function 15-29 CKD 5 Kidney failure <15 Note: (go live 2024) the eGFR calculation was updated to the 2020 CKD-EPI creatinine equation without a race factor to calculate the eGFR results. Performed By: #### M DW, PBNP, BMP, TROPHS, CBC, GFR, ADIFF, ANEU ####[facility] [place], [place] [address] .MDWon 02-08-2025 Monocyte Distribution Width Not tested Normal 0.00-20.00 [facility] Comment on above: Result Comment: MDW testing unable to be performed on [id number] instrumentation. Performed By: #### M DW, PBNP, BMP, TROPHS, CBC, GFR, ADIFF, ANEU ####[address] [place] [address] .NEUABSon 11-01-2024 Neutrophil, Absolute 3.9 10 3/mcL Normal 2.3-8.1 [facility] Comment on above: Performed By: #### M DW, PBNP, BMP, TROPHS, CBC, GFR, ADIFF, ANEU ####[place] [id number] [place] [address] .Urinalysis Microscopic (AO) on 11-01-2024 UA Bacteria 3+ /hpf Abnormal [facility] Comment on above: Performed By: #### U AMICAO, UA ####[address] [place] [address] UA RBC 0-5 Abnormal None Seen [facility] Comment on above: Performed By: #### U AMICAO, UA ####[facility] [place] [address] UA Squam Epithelial 5-10 Abnormal None Seen [facility] Comment on above: Performed By: #### U AMICAO, UA ####[facility] [place] [address] UA WBC LOADED Abnormal None Seen [facility] Comment on above: Performed By: #### U AMICAO, UA ####[facility] [place] [address] BMPon 11-01-2024 BUN/Creatinine Ratio 17 ratio Normal 7-27 [facility] Comment on above: Performed By: #### M DW, PBNP, BMP, TROPHS, CBC, GFR, ADIFF, ANEU ####[id number] [place] [address] Calcium [Mass/Vol] 9.4 mg/dL Normal 8.4-10.2 [facility] Comment on above: Performed By: #### M DW, PBNP, BMP, TROPHS, CBC, GFR, ADIFF, ANEU ####[address] [address] Chloride [Moles/Vol] 104 mmol/L Normal 98-107 [facility] Comment on above: Performed By: #### M DW, PBNP, BMP, TROPHS, CBC, GFR, ADIFF, ANEU ####[address] [address] CO2 [Moles/Vol] 29 mmol/L Normal 23-31 [facility] Comment on above: Performed By: #### M DW, PBNP, BMP, TROPHS, CBC, GFR, ADIFF, ANEU ####[address] [address] Creatinine [Mass/Vol] 0.78 mg/dL Normal 0.55-1.02 [facility] Comment on above: Result Comment: Test ing performed on Siemens Dimension EXL analyzer using a modified kinetic Angel technique. Performed By: #### M DW, PBNP, BMP, TROPHS, CBC, GFR, ADIFF, ANEU ####[address] [address] Electrolyte Balance 9.0 mEq/L Normal 4.0-15.0 [facility] Comment on above: Performed By: #### M DW, PBNP, BMP, TROPHS, CBC, GFR, ADIFF, ANEU ####[address] [address] Glucose [Mass/Vol] 148 mg/dL High 83-110 [facility] Comment on above: Performed By: #### M DW, PBNP, BMP, TROPHS, CBC, GFR, ADIFF, ANEU ####[place] [id number] Potassium [Moles/Vol] 3.9 mmol/L Normal 3.5-5.1 [facility] Comment on above: Performed By: #### M DW, PBNP, BMP, TROPHS, CBC, GFR, ADIFF, ANEU ####[address] [address] Sodium [Moles/Vol] 142 mmol/L Normal 136-145 [facility] Comment on above: Performed By: #### M DW, PBNP, BMP, TROPHS, CBC, GFR, ADIFF, ANEU ####[address] [address] Urea nitrogen [Mass/Vol] 13 mg/dL Normal 7-18 [facility] Comment on above: Performed By: #### M DW, PBNP, BMP, TROPHS, CBC, GFR, ADIFF, ANEU ####[address] [address] CBCon 11-01-2024 Erythrocyte distribution width (RBC) [Ratio] 13.7 % Normal 11.5-15.5 [facility] Comment on above: Performed By: #### M DW, PBNP, BMP, TROPHS, CBC, GFR, ADIFF, ANEU ####[address] [address] Hematocrit (Bld) [Volume fraction] 36.7 % Normal 34.0-46.0 [facility] Comment on above: Performed By: #### M DW, PBNP, BMP, TROPHS, CBC, GFR, ADIFF, ANEU ####[address] [address] Hgb 12.9 G/dL Normal 12.0-16.0 [facility] Comment on above: Performed By: #### M DW, PBNP, BMP, TROPHS, CBC, GFR, ADIFF, ANEU ####[address] [address] MCH (RBC) [Entitic mass] 30.3 pg Normal 27.0-33.0 [facility] Comment on above: Performed By: #### M DW, PBNP, BMP, TROPHS, CBC, GFR, ADIFF, ANEU ####[address] [address] MCHC 35.3 G/dL Normal 32.0-36.0 [facility] Comment on above: Performed By: #### M DW, PBNP, BMP, TROPHS, CBC, GFR, ADIFF, ANEU ####[place] [address] [place], [place] [address] MCV (RBC) [Entitic vol] 85.8 fL Normal 80.0-99.0 [facility] Comment on above: Performed By: #### M DW, PBNP, BMP, TROPHS, CBC, GFR, ADIFF, ANEU ####[address] [place], [place] [address] Platelet 342 10 3/mcL Normal 150-450 [facility] Comment on above: Performed By: #### M DW, PBNP, BMP, TROPHS, CBC, GFR, ADIFF, ANEU ####[facility] [place], [place] [address] Platelet mean volume (Bld) [Entitic vol] 7.4 fL Normal 6.6-10.5 [facility] Comment on above: Performed By: #### M DW, PBNP, BMP, TROPHS, CBC, GFR, ADIFF, ANEU ####[place] [address] [place], [place] [address] RBC 4.28 10 6/mcL Normal 4.10-5.30 [facility] Comment on above: Performed By: #### M DW, PBNP, BMP, TROPHS, CBC, GFR, ADIFF, ANEU ####[place] [address] [place], [place] [address] WBC 6.6 10 3/mcL Normal 4.5-10.8 [facility] Comment on above: Performed By: #### M DW, PBNP, BMP, TROPHS, CBC, GFR, ADIFF, ANEU ####[facility] [place], [place] [address] CT HEAD OR BRAIN W/O CONTRAS Ton 11-01-2024 CT HEAD OR BRAIN W/O CONTRAST ORIGINAL EXAMINATION: CT OF THE HEAD WITHOUT CONTRAST 11/01/2024 2:30 am TECHNIQUE: CT of the head was performed without the administration of intravenous contrast. Automated exposure control, iterative reconstruction, and/or weight based adjustment of the mA/kV was utilized to reduce the radiation dose to as low as reasonably achievable. COMPARISON: 04/09/2022 HISTORY: ORDERING SYSTEM PROVIDED HISTORY: Reason for Exam: pt states she has been having SOB, leg swelling and dizziness. pt states she ran out of her Lasix a week ago INJURY FINDINGS: BRAIN/VENTRICLES: There is no acute intracranial hemorrhage, mass effect or midline shift. No abnormal extra-axial fluid collection. The hathaway-white differentiation is maintained without evidence of an acute large vessel territorial infarct. There is no evidence of hydrocephalus. Scattered white matter hypodensities are nonspecific but statistically most consistent with mild chronic microvascular angiopathy. Mild age-related volume loss. Carotid siphon calcifications are present. ORBITS: The visualized portion of the orbits demonstrate no acute abnormality. SINUSES: The visualized paranasal sinuses and mastoid air cells demonstrate no acute abnormality. SOFT TISSUES/SKULL: No acute abnormality of the visualized skull or soft tissues. IMPRESSION: No acute intracranial abnormality. I have personally reviewed the images of this examination, and agree with the resident's findings and interpretation. Interpreted by: Abel Queen MD Preliminary Report By: Derek León Electronically signed By Abel Queen MD Dictated Date: 11/01/2024 2:34:17 AM Prelim Date: 11/01/2024 2:36:22 AM Sign Date: 11/01/2024 2:44:27 AM Ordering Provider: LENNY CESPEDES [facility] LABORATORYOrdered By: SYSTEM SYSTEM on 11-01-2024 Troponin I.cardiac DL <= 0.01 ng/mL [Mass/Vol] 8 ng/L Normal 0 - 51 ng/L AO ADM SS Comment on above: Interpretive Data: H igh Sensitive Troponin I Reference Ranges: Female: 0-51 ng/L Male: 0-76 ng/L Testing performed on Cardiocore using a homogeneous sandwich chemiluminescent immunoassay based on HemoShear technology. INR Coag (PPP) [Relative time] 2.3 {INR} Invalid Interpretation Code AO HemoHub SS Comment on above: Interpretive Data: Nicol brown [employer] (CHEST, 1992, 102:312S-25S) recommended therapeutic range for oral anticoagulant therapy is: LOW RISK: Prophylaxis of venous thrombosis INR: 2.0-3.0 Treatment of pulmonary embolism 2.0-3.0 Prevention of systemic embolism 2.0-3.0 HIGH RISK: Mechanical prosthetic valves 2.5-3.5 PT Coag (PPP) [Time] 26.7 s High 9.0 - 1 4.4 seconds AO HemoHub SS Basophils (Bld) [#/Vol] 0.0 103/mcL Normal 0.0 - 0.2 10^3/mcL AO Workflow SS Basophils/100 WBC (Bld) 0.2 % Normal 0.0 - 2.5 % AO Workflow SS Calcium [Mass/Vol] 9.4 mg/dL Normal 8.4 - 10. 2 mg/dL AO ADM SS Chloride [Moles/Vol] 104 mmol/L Normal 98 - 10 7 mmol/L AO ADM SS CO2 [Moles/Vol] 29 mmol/L Normal 23 - 31 mmol/L AO ADM SS Creatinine [Mass/Vol] 0.78 mg/dL Normal 0.55 - 1.02 mg/dL AO ADM SS Comment on above: Interpretive Data: T esting performed on Siemens Dimension EXL analyzer using a modified kinetic Angel technique. Electrolyte Balance 9.0 mEq/L Normal 4.0 - 15 .0 mEq/L AO ADM SS Eosinophil, Absolute 0.1 103/mcL Normal 0.0 - 0 .7 10^3/mcL AO Workflow SS Eosinophils/100 WBC (Bld) 2.3 % Normal 0.0 - 7.0 % AO Workflow SS Erythrocyte distribution width (RBC) [Ratio] 13.7 % Normal 11.5 - 15.5 % AO Workflow SS Estimated Glomerular Filtration Rate 82 ml/min/1.73sqm Invalid Interpretation Code AO Chemistry S Comment on above: Interpretive Data: Stages of Chronic Kidney Disease (CKD) Stage Description eGFR(ml/min/1.73 sq.m.) CKD 1 Normal kidney function or >=90 normal kindney function with possible kidney damage (ex. Proteinuria) CKD 2 Kidney damage with mild loss 60-89 of kidney function CKD 3a Mild to moderate loss of kidney 45-59 function CKD 3b Moderate to severe loss of 30-44 of kindey function CKD 4 Severe loss of kidney function 15-29 CKD 5 Kidney failure <15 Note: (go live 2024) the eGFR calculation was updated to the 2020 CKD-EPI creatinine equation without a race factor to calculate the eGFR results. Glucose [Mass/Vol] 148 mg/dL High 83 - 110 mg/dL AO ADM SS Hematocrit (Bld) [Volume fraction] 36.7 % Normal 34.0 - 46.0 % AO Workflow SS Hemoglobin (Bld) [Mass/Vol] 12.9 G/dL Normal 12.0 - 16.0 G/dL AO Workflow SS Lymphocytes (Bld) [#/Vol] 2.1 103/mcL Normal 0.9 - 4.3 10^3/mcL AO Workflow SS Lymphocytes/100 WBC (Bld) 32.0 % Normal 20.0 - 40.0 % AO Workflow SS MCH (RBC) [Entitic mass] 30.3 pg Normal 27.0 - 33.0 pg AO Workflow SS MCHC 35.3 G/dL Normal 32.0 - 36.0 G/dL AO Workflow SS MCV (RBC) [Entitic vol] 85.8 fL Normal 80.0 - 99.0 fL AO Workflow SS Monocytes (Bld) [#/Vol] 0.3 103/mcL Normal 0.1 - 1.4 10^3/mcL AO Workflow SS Monocytes/100 WBC (Bld) 5.7 % Normal 2.0 - 13.0 % AO Workflow SS Natriuretic peptide.B prohormone N-Terminal [Mass/Vol] 208 pg/mL High 0 - 125 pg/mL AO ADM SS Comment on above: Interpretive Data: N T-proBNP results of less than 300 pg/mL effectively rules out acute congestive heart failure with 99% negative predictive value. Neutrophils (Bld) [#/Vol] 3.9 103/mcL Normal 2.3 - 8.1 10^3/mcL AO Workflow SS Neutrophils/100 WBC (Bld) 59.5 % Normal 50.0 - 75.0 % AO Workflow SS Platelet mean volume (Bld) [Entitic vol] 7.4 fL Normal 6.6 - 10.5 fL AO Workflow SS Platelets (Bld) [#/Vol] 342 103/mcL Normal 150 - 450 10^3/mcL AO Workflow SS Potassium [Moles/Vol] 3.9 mmol/L Normal 3.5 - 5.1 mmol/L AO ADM SS RBC (Bld) [#/Vol] 4.28 106/mcL Normal 4.10 - 5.3 0 10^6/mcL AO Workflow SS Sodium [Moles/Vol] 142 mmol/L Normal 136 - 145 mmol/L AO ADM SS Troponin I.cardiac DL <= 0.01 ng/mL [Mass/Vol] 6 ng/L Normal 0 - 51 ng/L AO ADM SS Comment on above: Interpretive Data: H igh Sensitive Troponin I Reference Ranges: Female: 0-51 ng/L Male: 0-76 ng/L Testing performed on Cardiocore using a homogeneous sandwich chemiluminescent immunoassay based on HemoShear technology. Urea nitrogen [Mass/Vol] 13 mg/dL Normal 7 - 18 mg/dL AO ADM SS Urea nitrogen/Creatinine [Mass ratio] 17 ratio Normal 7 - 27 ratio AO ADM SS WBC (Bld) [#/Vol] 6.6 103/mcL Normal 4.5 - 10.8 10^3/mcL AO Workflow SS LABORATORYOrdered By: Vale Haro on 11-01-2024 Appearance (U) Slightly Cloudy *ABN* (11/01/24 1:57 AM) Invalid Interpretation Code Clear AO Auto Urine SS Bacteria LM.HPF (Urine sed) [#/Area] 3 /[HPF] Invalid Interpretation Code AO Auto Urine SS Bilirubin Ql (U) Negative (11/01/24 1:57 AM) Normal Negative AO Auto Urine SS Color (U) Yellow (11/01/24 1:57 AM) Normal AO Auto Urine SS Glucose Test strip (U) [Mass/Vol] Negative Normal Negative AO Auto Urine SS Hemoglobin Auto test strip (U) [Mass/Vol] Trace *ABN* (11/01/24 1:57 AM) Invalid Interpretation Code Negative AO Auto Urine SS Ketones Ql (U) Negative Normal Negative AO Auto Ur ine SS Monocyte distribution width Auto (Bld) [Entitic vol] Not tested 1 (11/01/24 1:57 AM) Normal 0.00 - 20.00 AO Hematology S Comment on above: Result Comment: MDW testing unable to be performed on [id number] instrumentation. UA Leuk Est Trace *ABN* (11/01/24 1:57 AM) Invalid Interpretation Code Negative AO Auto Urine SS UA Nitrite Positive *ABN* (11/01/24 1:57 AM) Invalid Interpretation Code Negative AO Auto Urine SS UA pH 5.5 (11/01/24 1:57 AM) Normal 5.0 - 8.0 AO Auto Urine SS UA Protein Trace mg/dL Normal Negative AO Auto Urine SS UA RBC 0-5 /HPF Invalid Interpretation Code None Seen AO Auto Urine SS UA Spec Grav >=1.030 *ABN* (11/01/24 1:57 AM) Invalid Interpretation Code 1.015-1.025 AO Auto Urine SS UA Specimen Type Clean Catch (11/01/24 1:57 AM) Normal AO Auto Urine SS UA Squam Epithelial 5-10 /HPF Invalid Interpretation Code None Seen AO Auto Urine SS UA Urobilinogen 0.2 E.U./dL Normal 0.2-1.0 AO Auto Urine SS WBC LM.HPF (Urine sed) [#/Area] LOADED /HPF Invalid Interpretation Code None Seen AO Auto Urine SS No Panel Informationon 11-01 Microscopic examination of blood, culture Culture has been received in lab and is no growth to date. Routine cultures are held for 5 days. [facility] PBNPon 11-01-2024 Natriuretic peptide B (Bld) [Mass/Vol] 208 pg/mL High 0-125 [facility] Comment on above: Result Comment: NT-p roBNP results of less than 300 pg/mL effectively rules out acute congestive heart failure with 99% negative predictive value. Performed By: #### M DW, PBNP, BMP, TROPHS, CBC, GFR, ADIFF, ANEU ####[facility] [place], [place] [address] PROon 11-01-2024 PT Coag (PPP) [Time] 26.7 s High 9.0-14.4 [facility] Comment on above: Performed By: #### P RO ####[facility] [place], [place] [address] PT International Ratio 2.3 Normal [facility] Comment on above: Result Comment: [employer] (CHEST, 1992, 102:312S-25S) recommended therapeutic range for oral anticoagulant therapy is: LOW RISK: Prophylaxis of venous thrombosis INR: 2.0-3.0 Treatment of pulmonary embolism 2.0-3.0 Prevention of systemic embolism 2.0-3.0 HIGH RISK: Mechanical prosthetic valves 2.5-3.5 Performed By: #### P RO ####[facility] [place], [place] [address] TROPHSon 11-01-2024 High Sensitivity Troponin I 8 ng/L Normal 0-51 [facility] Comment on above: Result Comment: High Sensitive Troponin I Reference Ranges: Female: 0-51 ng/L Male: 0-76 ng/L Testing performed on Dimension EXL using a homogeneous sandwich chemiluminescent immunoassay based on HemoShear technology. Performed By: #### T ROP ####[facility] [address] [place], [place] [address] High Sensitivity Troponin I 6 ng/L Normal 0-51 [facility] Comment on above: Result Comment: High Sensitive Troponin I Reference Ranges: Female: 0-51 ng/L Male: 0-76 ng/L Testing performed on Dimension EXL using a homogeneous sandwich chemiluminescent immunoassay based on HemoShear technology. Performed By: #### M DW, PBNP, BMP, TROPHS, CBC, GFR, ADIFF, ANEU ####[facility] [address] [place], [place] [address] UAon 11-01-2024 Color (U) Yellow Normal [facility] Comment on above: Performed By: #### U AMICAO, UA ####[address] [place], [place] [address] Glucose (U) [Mass/Vol] Negative Normal Negative [facility] Comment on above: Performed By: #### U AMICAO, UA ####[address] [place], [place] [address] Ketones Ql (U) Negative Normal Negative [facility] Comment on above: Performed By: #### U AMICAO, UA ####[address] [place], [place] [address] UA Appear Slightly Cloudy Abnormal Clear [facility] Comment on above: Performed By: #### U AMICAO, UA ####[address] [place], [place] [address] UA Blood Trace Abnormal Negative [facility] Comment on above: Performed By: #### U AMICAO, UA ####[address] [place], [place] [address] UA Leuk Est Trace Abnormal Negative [facility] Comment on above: Performed By: #### U AMICAO, UA ####[address] [place], [place] [address] UA Nitrite Positive Abnormal Negative [facility] Comment on above: Performed By: #### U AMICAO, UA ####[address] [place], [place] [address] UA pH 5.5 Normal 5.0 - 8.0 [facility] Comment on above: Performed By: #### U AMICAO, UA ####[address] [place] [address] UA Protein Trace Normal Negative [facility] Comment on above: Performed By: #### U AMICAO, UA ####[address] [place] [address] UA Spec Grav >=1.030 Abnormal 1.015-1.025 [facility] Comment on above: Performed By: #### U AMICAO, UA ####[address] [place] [address] UA Specimen Type Clean Catch Normal [facility] Comment on above: Performed By: #### U AMICAO, UA ####[facility] [place] [address] UA Urobilinogen 0.2 E.U./dL Normal 0.2-1.0 [facility] Comment on above: Performed By: #### U AMICAO, UA ####[address] [place] [address] Urobilinogen (U) [Mass/Vol] Negative Normal Negative [facility] Comment on above: Performed By: #### U AMICAO, UA ####[address] [address] [place] [id number] XR CHEST 2 VIEWSon XR CHEST 2 VIEWS ORIGINAL EXAMINATION: TWO XRAY VIEWS OF THE CHEST 11/01/2024 2:30 am COMPARISON: 06/03/2023 HISTORY: ORDERING SYSTEM PROVIDED HISTORY: Reason for Exam: pt states she has been having SOB, leg swelling and dizziness. pt states she ran out of her Lasix a week ago Chest Pain FINDINGS: Stable cardiomediastinal silhouette. No focal consolidation, pleural effusion, or visible pneumothorax. Degenerative changes. Upper quadrant surgical clips. IMPRESSION: No acute radiographic abnormality. I have personally reviewed the images of this examination, and agree with the resident's findings and interpretation. Interpreted by: Abel Queen MD Preliminary Report By: Derek León Electronically signed By Abel Queen MD Dictated Date: 11/01/2024 2:31:28 AM Prelim Date: 11/01/2024 2:34:10 AM Sign Date: 11/01/2024 2:42:35 AM Ordering Provider: LENNY CESPEDES [facility] MR/BMS.BPon 10-30-2024 MR/BMS.BP [address], [address] [place] [address] OFFICE VISIT Date of Service: 10/30/24 MR#: [id number] Acct: [id number] Name: HEAVEN MONROE Rep #: [id number] : 1955 Provider: EV coelho Age/Sex: 69/F [place] [facility] Status: Signed Intake Vital Signs 10/10/24 07:57 10/30/24 13:00 Height 5 ft 4 in 5 ft 4 in Weight: 230 lb BMI 39.4 BP 149/84 H 113/63 Blood Pressure Location Lt brachial Lt brachial Position Sitting Sitting Respiration 22 H 16 Pulse 95 78 Pulse Source Monitor Monitor Temp 97.4 F L Temperature Source Temporal Artery Pulse Oximetry (%) 95 Oxygen Delivery Method room air BP Intake Visit Reasons: 8wfu Accompanied by: Self Allergies KENYA Inhibitors Allergy (Verified 10/30/24 13:04) cough clindamycin Allergy (Verified 10/30/24 13:04) Hives liraglutide (From Victoza) Allergy (Verified 10/30/24 13:04) lump in throat metoprolol Allergy (Verified 10/30/24 13:04) unk propoxyphene napsylate (From Darvocet-N 100) Allergy (Verified 10/30/24 13:04) Unknown repaglinide Adverse Reaction (Severe, Verified 10/30/24 13:04) Back Pain, PULIDO, Nausea Medications ???Medication ???Instructions ???Recorded ???Confirmed ???Type tramadol 50 mg tablet 50 mg PO Q6H PRN PRN Pain #8 tabs 04/09/14 10/30/24 Rx meclizine 25 mg tablet 25 mg PO TID PRN Dizziness 9 10/30/24 History gabapentin 100 mg capsule 100 mg PO TID 03/29/21 10/30/24 Hi story warfarin 2 mg tablet 2 mg PO SUTUTHSA 03/29/21 10/30/24 History furosemide 20 mg tablet 20 mg PO DAILY PRN Swelling 10/30/24 History omeprazole magnesium 20 mg 20 mg PO DAILY 06/01/22 10/30/24 H istory tablet,delayed release (Prilosec OTC) warfarin 5 mg tablet 3 mg PO MOWEFR 06/01/22 10/30/24 H istory vibegron 75 mg tablet (Gemtesa) 75 mg PO DAILY 01/08/23 10/30/24 H istory atorvastatin 40 mg tablet 40 mg PO QHS 07/18/23 10/30/24 His tory potassium chloride 20 mEq 20 meq PO BID 07/18/23 10/30/24 Hi story tablet,extended release ondansetron 4 mg disintegrating 4 mg PO Q8H PRN PRN Nausea #10 tab s 11/04/23 10/30/24 Rx tablet ropinirole 3 mg tablet 3 mg PO QHS restless legs 01/02/24 10/30/24 History losartan 100 mg tablet 100 mg PO QDAY 07/11/24 10/30/24 H istory metformin 500 mg tablet 500 mg PO BID 07/11/24 10/30/24 Hi story hydroxyzine HCl 25 mg tablet 25 mg PO TID PRN anxiety #90 tabs 08/28/24 10/30/24 Rx albuterol sulfate 90 mcg/actuation 2 puff inhalation Q6H PRN Wheezi ng 10/10/24 10/30/24 Rx aerosol inhaler (Ventolin HFA) #8.5 grams amlodipine 5 mg tablet 5 mg PO QDAY 10/10/24 10/30/24 His tory fluticasone propionate 230 2 inh inhalation BID #3 ea 5 10/30/24 Rx mcg-salmeterol 21 mcg/actuation HFA inhaler (Advair HFA) duloxetine 60 mg capsule,delayed 60 mg PO DAILY #90 caps 10/30/24 0 10/30/24 Rx release mirtazapine 7.5 mg tablet 7.5 mg PO QHS #90 tabs 10/30/24 Rx Have you fallen in the past year?: No PFSH Medical History (Reviewed 10/10/24 @ 14:37 by Mary Rowe VOYAGE MANAGEMENT SYSTEM OPERATOR, VOYAGE MANAGEMENT SYSTEM OPERATOR-C) Anxiety Depression, unspecified COVID-19 Encounter for screening for COVID-19 Chronic diastolic heart failure IBS (irritable bowel syndrome) GERD (gastroesophageal reflux disease) Premature ventricular contraction Premature atrial contraction SVT (supraventricular tachycardia) Essential hypertension Type 2 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 Asthma Congestive heart failure Anxiety and depression Surgical History History of cholecystectomy History of laparoscopic-assiste d vaginal hysterectomy History of hip replacement Hx of appendectomy Family History Father Diabetes Heart disease Mother CVA (cerebral vascular accident) Alzheimer disease Sister Cancer throat, mouth Social History household members: spouse Smoking Status: Never smoker alcohol intake: never substance use type: does not use caffeine: Yes what type of physical activity do you participate in: none seatbelt use: always do you feel safe at home: Yes additional social history: [place]- Retired from [employer] HPI History of Present Illness History provided by: patient HPI: Heaven Monroe is a 69 year old female patient presenting today for a follow up evaluation. Reports things with her daughter have worsened and reports she has to go to court to testify due to CPS taking her daughter to court over her grandson. Reports her daughter is not putting in any effort for her son and voices frustration for this. Admits to feeling more depressed recently. Has been feeling more fatigued and like (more content not included)... Normal [facility] Pulmonary Visit Reporton Pulmonary Visit Report [facility] [address] [place] [address] OFFICE VISIT Date of Service: 10/10/24 MR#: [id number] Acct: [id number] Name: HEAVEN MONROE Rep #: [id number] : 1955 Provider: EV Rowe Age/Sex: 69/F [place] [facility] [place] Status: Signed Assessment and Plan Assessment and Plan (1) MITZI (obstructive sleep apnea): Status: Chronic Comment: Auto BiPAP with residual AHI of 0.3 Plan: She is using and benefiting from Pap therapy. No indication for titration study at this time. Contact the office for any new or worsening symptoms in the meantime. Follow-up in 6 months. (2) Asthma: Status: Chronic Qualifiers: Asthma severity: mild Asthma persistence: intermittent Asthma complication type: uncomplicated Qualified Code(s): J45.20 - Mild intermittent asthma, uncomplicated Plan: Stable, no signs of exacerbation of asthma today. No change in maintenance medications, encouraged to use Advair at least once daily, ideally twice daily. No additional testing at this time. Contact the office with any signs of new or worsening symptoms. Follow-up in 6 months. (3) Chronic diastolic heart failure: Status: Chronic Plan: Complicates exam, plan, care and prognosis. (4) Morbid obesity due to excess calories: Status: Chronic Plan: Complicates exam, plan, care and prognosis. Continue to encourage healthy weight loss. Medications: New albuterol sulfate 90 mcg/actuation (Ventolin HFA) 2 puffs inhalation Q6H PRN 8.5 grams 11RF Wheezing fluticasone propion-salmeterol 230-21 mcg/actuation (Advair HFA) 2 inhalations inhalation BID 3 ea 3RF Plan Details Follow Up: 6 Months ([facility]) HPI HPI Comments Details: This patient presents to the office today for routine follow-up of her asthma and obstructive sleep apnea. She is ambulatory with the use of a cane and currently on room air. She has not recently been seen in the ED or urgent care for any respiratory illness. She has not required any antibiotics or prednisone for any breathing problems. She is on Advair about once a week. She denies any medication side effect such sore throat or thrush. She uses the albuterol rescue inhaler about once daily. She occasionally uses DuoNebs. She is compliant with Lasix 20 mg but haven't needed it as much lately. She has been more compliant with pap therapy. She is feeling rested. He noticed that there was a nipple missing a cap on the back of my machine that was making a strange noise. Once discovered, the cap was replaced and the noise went away. She denies any difficulty with dry mouth or mask leaks. She thinks she wants to go back to a nasal mask and plans to contact the DME about this. She is not requiring naps. She denies any difficulty with shortness of breath. She denies any cough, sputum production or hemoptysis. She denies any wheezing, chest tightness, chest pain or palpitations. She also denies any fever, chills or body aches. Compliance report for the past 30 days shows 93% compliance with an average use of 3 hours and 54 minutes on nights being used. Current setting is auto BiPAP with pressures typically being used at 13.6-15.2 cmH2O over 9.7-11.2 cmH2O. Residual AHI 0.6 events per hour. Leaks do appear to be somewhat of an issue. Intake Vital Signs 04/18/24 08:38 06/03/24 14:24 07/11/24 15:59 08/28/24 13:29 10/10/24 07:57 Height 5 ft 4 in 5 ft 4 in 5 ft 4 in 5 ft 4 in 5 ft 4 in Weight: 230 lb BMI 39.4 BP 149/84 H Blood Pressure Location Lt brachial Position Sitting Respiration 22 H Pulse 95 Pulse Source Monitor Temp 97.4 F L Temperature Source Temporal Artery Pulse Oximetry (%) 95 Oxygen Delivery Method room air Intake Visit Reasons: 3 M FU Chief Complaint: 6 mo f/u Material Requirements Worker Required: No DME Vendor: natacha Accompanied by: Self Allergies KENYA Inhibitors Allergy (Verified 10/10/24 14:22) cough clindamycin Allergy (Verified 10/10/24 14:22) Hives liraglutide (From Victoza) Allergy (Verified 10/10/24 14:22) lump in throat metoprolol Allergy (Verified 10/10/24 14:22) unk propoxyphene napsylate (From Darvocet-N 100) Allergy (Verified 10/10/24 14:22) Unknown repaglinide Adverse Reaction (Severe, Verified 10/10/24 14:22) Back Pain, PULIDO, Nausea Medications ???Medication ???Instructions ???Recorded ???Confirmed ???Type tramadol 50 mg tablet 50 mg PO Q6H PRN PRN Pain #8 tabs 04/09/14 10/10/24 Rx meclizine 25 mg tablet 25 mg PO TID PRN Dizziness 05/28/19 10/10/24 History gabapentin 100 mg capsule 100 mg PO TID 03/29/21 10/10/24 History warfarin 2 mg tablet 2 mg PO SUTUTHSA 03/29/21 10/10/24 History furosemide 20 mg tablet 20 mg PO DAILY PRN Swelling 05/26/21 10/10/24 History omeprazole magnesium 20 mg 20 mg PO DAILY 06/01/22 (more content not included)... Normal [facility] MR/BMS.BPon 08-28-2024 MR/BMS.BP [facility] [address] [facility], [address] [place] [address] OFFICE VISIT Date of Service: 08/28/24 MR#: [id number] Acct: [id number] Name: HEAVEN MONROE Rep #: [id number] : 1955 Provider: EV coelho Age/Sex: 68/F [place] [facility] [place] Status: Signed Intake Vital Signs 07/11/24 15:59 08/04/24 03:24 08/28/24 13:29 Height 5 ft 4 in 5 ft 4 in 5 ft 4 in BP 146/75 H Blood Pressure Location Rt brachial Position Sitting Respiration 18 Pulse 92 Pulse Source Monitor BP Intake Visit Reasons: 6 wk FU Accompanied by: Self Is patient in pain?: Yes (B/L knee, R>L) Pain scale (1-10): 8 Allergies KENYA Inhibitors Allergy (Verified 08/28/24 13:35) cough clindamycin Allergy (Verified 08/28/24 13:35) Hives liraglutide (From Victoza) Allergy (Verified 08/28/24 13:35) lump in throat metoprolol Allergy (Verified 08/28/24 13:35) unk propoxyphene napsylate (From Darvocet-N 100) Allergy (Verified 12/05/24 13:35) Unknown repaglinide Adverse Reaction (Severe, Verified 08/28/24 13:35) Back Pain, PULIDO, Nausea Medications ???Medication ???Instructions ???Recorded ???Confirmed ???Type tramadol 50 mg tablet 50 mg PO Q6H PRN PRN Pain #8 tabs 04/09/14 08/28/24 Rx albuterol sulfate 90 mcg/actuation 2 puff inhalation Q6H PRN Wheezing 05/28/19 08/28/24 History aerosol inhaler (Ventolin HFA) meclizine 25 mg tablet 25 mg PO TID PRN Dizziness 05/28/19 08/28/24 History gabapentin 100 mg capsule 100 mg PO TID 03/29/21 08/28/24 History warfarin 2 mg tablet 2 mg PO SUTUTHSA 03/29/21 08/28/24 History furosemide 20 mg tablet 20 mg PO DAILY PRN Swelling 05/26/21 08/28/24 History omeprazole magnesium 20 mg 20 mg PO DAILY 06/01/22 08/28/24 History tablet,delayed release (Prilosec OTC) warfarin 5 mg tablet 3 mg PO MOWEFR 06/01/22 08/28/24 History vibegron 75 mg tablet (Gemtesa) 75 mg PO DAILY 01/08/23 08/28/24 History atorvastatin 40 mg tablet 40 mg PO QHS 07/18/23 08/28/24 History potassium chloride 20 mEq 20 meq PO BID 07/18/23 08/28/24 History tablet,extended release ondansetron 4 mg disintegrating 4 mg PO Q8H PRN PRN Nausea #10 tabs 11/04/23 08/28/24 Rx tablet ropinirole 3 mg tablet 3 mg PO QHS restless legs 01/02/24 08/28/24 History losartan 100 mg tablet 100 mg PO QDAY 07/11/24 08/28/24 History metformin 500 mg tablet 500 mg PO BID 07/11/24 08/28/24 History duloxetine 60 mg capsule,delayed 60 mg PO DAILY #90 caps 08/28/24 08/28/24 Rx release hydroxyzine HCl 25 mg tablet 25 mg PO TID PRN anxiety #90 tabs 08/28/24 08/28/24 Rx mirtazapine 7.5 mg tablet 7.5 mg PO QHS #90 tabs 08/28/24 08/28/24 Rx Have you fallen in the past year?: No PFSH Medical History Anxiety Depression, unspecified COVID-19 Encounter for screening for COVID-19 Chronic diastolic heart failure IBS (irritable bowel syndrome) GERD (gastroesophageal reflux disease) Premature ventricular contraction Premature atrial contraction SVT (supraventricular tachycardia) Essential hypertension Type 2 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 Asthma Congestive heart failure Anxiety and depression Surgical History History of cholecystectomy History of laparoscopic-assiste d vaginal hysterectomy History of hip replacement Hx of appendectomy Family History Father Diabetes Heart disease Mother CVA (cerebral vascular accident) Alzheimer disease Sister Cancer throat, mouth Social History household members: spouse Smoking Status: Never smoker alcohol intake: never substance use type: does not use caffeine: Yes what type of physical activity do you participate in: none seatbelt use: always do you feel safe at home: Yes additional social history: Arnulfo- Retired from [employer] HPI History of Present Illness History provided by: patient Chief complaint: Depression/Anxiety HPI: Heaven Monroe is a 68 year old female patient presenting today for a follow up evaluation. Has been having a good week at home. Is still having a lot of difficulty with her daughter and reports her daughter had left the home for 1 night with her son and realized she likely cannot do it alone. Since her daughter returned to her home they have been getting along better. Admits to still struggling with her daughter not parenting her grandson well. Admits to having difficulty with sleeping but report she has a lot on her mind right now which causes difficulty with sleeping. Her bipap states she slept 4 hours last night. Will sometimes get 5-6 hours of sleep. Does feel mirtazapine helps with sleep but anxiety has increased more and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 fraction] 6.2 % High 3.8-5.6 [facility] Comment on above: Result Comment: Norm al < 5.7 % Prediabetic 5.7 - 6.4 % Diabetic >or= 6.5 % Please note range changes. Performed By: #### L 3300.0940, L5000.0012, L100.0100, L501.9985, L500.4050, L500.4100, L503.6150, L503.6550, L502.0250 #### [facility] [address] [place], [address] Ironon 07-08-2024 Iron [Mass/Vol] 83 ug/dL Normal 50-170 [facility] Comment on above: Performed By: #### L 3300.0940, L5000.0012, L100.0100, L501.9985, L500.4050, L500.4100, L503.6150, L503.6550, L502.0250 #### [facility] [address] [place], [place], [address] Lipid Profileon 07-08-2024 Cholesterol [Mass/Vol] 127 mg/dL Normal 200 [facility] Comment on above: Result Comment: <200 mg/dL Desirable 200-240 mg/dL Borderline >240 mg/dL High Risk Performed By: #### L 3300.0940, L5000.0012, L100.0100, L501.9985, L500.4050, L500.4100, L503.6150, L503.6550, L502.0250 #### [facility] [address] [place], [place], [address] Cholesterol in HDL [Mass/Vol] 85 mg/dL Normal [facility] Comment on above: Result Comment: The drugs N-Acetylcysteine and Metamizole may falsely depress this assay. Reference Range HDL <40 mg/dL Low HDL Cholesterol HDL >or= 60 mg/dL High HDL Cholesterol Performed By: #### L 3300.0940, L5000.0012, L100.0100, L501.9985, L500.4050, L500.4100, L503.6150, L503.6550, L502.0250 #### [facility] [address] [place], [address] Cholesterol in LDL [Mass/Vol] 17 mg/dL Normal 0-130 [facility] Comment on above: Performed By: #### L 3300.0940, L5000.0012, L100.0100, L501.9985, L500.4050, L500.4100, L503.6150, L503.6550, L502.0250 #### [facility] [address] [place], [address] Cholesterol in VLDL [Mass/Vol] 25 mg/dL Normal 5-40 [facility] Comment on above: Performed By: #### L 3300.0940, L5000.0012, L100.0100, L501.9985, L500.4050, L500.4100, L503.6150, L503.6550, L502.0250 #### [facility] [address] [place], [address] Triglyceride [Mass/Vol] 127 mg/dL Normal [facility] Comment on above: Result Comment: The drugs N-Acetylcysteine and Metamizole may falsely depress this assay. Serum Triglycerides Reference Interval Normal <150 mg/dL Borderline high 150 - 199 mg/dL High 200 - 499 mg/dL Very High > or = 500 mg/dL Performed By: #### L 3300.0940, L5000.0012, L100.0100, L501.9985, L500.4050, L500.4100, L503.6150, L503.6550, L502.0250 #### [facility] [address] [place], [address] Microalb:Creat Ratio,Random URon 07-08-2024 Creatinine [Mass/Vol] 199.00 mg/dL Normal NO RAN GE EST. [facility] Comment on above: Performed By: #### L 3300.0940, L5000.0012, L100.0100, L501.9985, L500.4050, L500.4100, L503.6150, L503.6550, L502.0250 #### [facility] [address] [place], [place], [id number] MALB:CRE 22.6 mg/g CRE Normal <30 mg/g CRE [facility] Comment on above: Performed By: #### L 3300.0940, L5000.0012, L100.0100, L501.9985, L500.4050, L500.4100, L503.6150, L503.6550, L502.0250 #### [facility] [address] [place], [place], [id number] MICROALBUMIN,UR 45.0 mg/L Normal NO RANGE EST. [facility] Comment on above: Performed By: #### L 3300.0940, L5000.0012, L100.0100, L501.9985, L500.4050, L500.4100, L503.6150, L503.6550, L502.0250 #### [facility] [address] [facility] [place], [address] Office Visiton 07-04-2024 Follow-up visit [id number] FerBlaise 1955 F Date Provider Department Center 07/04/2024 MIKAYLA [facility] Family History Problem Relation Age of Onset Stroke Mother Diabetes Father Alzheimer's disease Mother Clotting disorder Other Cancer Sister Comments: throat and mouth Family Status - Relation Status Age at Mother Father Other Other Sister Level of Service:83742 CT OFFICE/OUTPATIENT ESTABLISHED LOW MDM 20 MIN Reason for Visit and Comments: Bariatrics Post Op Follow-up [884] - pop [facility] Progress Noteon 07-04-2024 Progress Note [facility] ROOMING NOTE POST WEIGHT LOSS SURGERY FOLLOW UP Patient: Blaise Monroe Service Date: 07/04/2024 Patient is 1 year(s) s/p Sleeve Gastrectomy Today's Metrics: Post-op Weight Metrics: (From Surgical Weight Loss Tracker) Patient has the following questions: None Reported Pain: Patient rates pain on scale 0-10 as: 0 Exercise Compliance: Exercising: no If yes: Type: 0 Times per week: 0 Min per session: 0 Falls Risk Assessment Patient does take medications which affect BP or mental status Patient does not t have newly prescribed or changed dosage of medications within past 30 days which affect BP or mental status Patient has not fallen in the past 2 months Patient does not t demonstrate unsteady gait Patient uses the following ambulatory assistive devices: cane Patient states the presence of the following traits which increases risk of fall: none Patient is not on home O2 Pre-op Weight Metrics: Labs Completed: no - If NO, patient instructed to get labs drawn today or ROSEY If YES: Labs completed at [facility]? N/A If yes see Labs Tab Labs completed at Non-[facility] facility? N/A If yes see Encounters Tab - Orders only - Historical Provider - Date: Completed by: Anne Swanson MA [facility] [id number] 06-11-2024 [id number] Pt notified that Metformin is a good choice and can be refilled if need be. [facility] [phone] Please let the pt know Metformin will be a good choice I can refill it if needed Thank you [facility] [phone] Please see message. Please advise. Thanks! [facility] 25-hydroxyvitamin D3 [Mass/V ol]on 06-11-2024 Interpretation and review of laboratory results Normal [facility] Therapy is based on measurement of Total 25-OHD with the following classification levels: Less than 20 ng/mL: Indicative of Vit D deficiency 20-30 ng/mL: Suggests Vit D insufficiency Optimal: Greater than or equal to 30 ng/mL Test performed by [employer] Competitive Immunoassay, measuring Total Vitamin D, not individual fractions. [facility] VITAMIN D DEFICIENCY SCREENI NG (VIT D 25)on 06-11-2024 VIT D 25-OH, TOTAL 48 ng/mL Normal 30-100 [facility] Comment on above: Order Comment: These orders are set for an approximate date - they can be drawn up to 3 months prior to the Expected Date on this Req.Please send results to: [facility] - [address] [place], [place] [address] [place] [address] - [phone] if not done at a [facility] Facility, please send to:[facility] - [address] [place] [address], [address] - [place], [address]Qyzrs: [phone] Suuicgw Name: Blaise Monroe - 1955Order Created by : Magda Patel RD Result Comment: OLU Ashraf COMMENTS: Therapy is based on measurement of Total 25-OHD with the following classification levels: Less than 20 ng/mL: Indicative of Vit D deficiency 20-30 ng/mL: Suggests Vit D insufficiency Optimal: Greater than or equal to 30 ng/mL Test performed by Mark[employer] Competitive Immunoassay, measuring Total Vitamin D, not individual fractions. Performed By: #### L [id number] ####Shake Backboard Notcher: EDWARD MENDIETA ([phone])[facility] ([facility])[address] [place] [address] Vitamin D Deficiency Screeni ng (Vit D 25)on 06-11-2024 25-hydroxyvitamin D3 [Mass/Vol] 48 ng/mL 30 - 100 ng/mL [facility] Office Visiton 04-23-2024 Follow-up visit [id number] Blaise Monroe 1955 F Date Provider Department Center 04/23/2024 [id number] [facility] Family History Problem Relation Age of Onset Stroke Mother Diabetes Father Alzheimer's disease Mother Clotting disorder Other Cancer Sister Comments: throat and mouth Family Status - Relation Status Age at Mother Father Other Other Sister Level of Service:57926 CT OFFICE/OUTPATIENT ESTABLISHED LOW MDM 20 MIN Reason for Visit and Comments: Bariatrics Post Op Follow-up [884] - POP FU Normal [facility] Progress Noteon 04-23-2024 Progress Note [facility] ROOMING NOTE POST WEIGHT LOSS SURGERY WEIGHT LOSS MANAGEMENT Patient: Blaise Monroe Date of : 1955 Service Date: 04/23/2024 This patient is alone for the evaluation today. Reason patient is here today: POP FU. Date of Weight Loss Surgery: 02-15-22 Procedure Performed: Laparoscopic Sleeve Gastrectomy Initial Weight: @FLOWLAST([id number]) @ Today's weight has increased from the last visit Pain: Patient rates pain on scale 0-10 as: 0 Falls Risk Assessment Patient does not take medications which affect BP or mental status Patient does have newly prescribed or changed dosage of medications within past 30 days which affect BP or mental status Patient has not fallen in the past 2 months Patient does not demonstrate unsteady gait Patient uses the following ambulatory assistive devices: cane Patient states the presence of the following traits which increases risk of fall: bandages on feet Patient is low risk for falls. Patient is not on home O2 Post-op Weight Metrics: %EBWL: % EBWL: 37% Weight Change Since Last Visit: Weight Change: 2.2 lbs Weight Change from Highest Pre-op Weight: Total Weight Change: -57.2 lbs Completed by: Chetna Kamara LPN [facility] Office Visiton 02-27-2024 Follow-up visit [id number] Blaise Monroe 1955 F Date Provider Department Center 02/27/2024 [id number] [facility] Family History Problem Relation Age of Onset Stroke Mother Diabetes Father Alzheimer's disease Mother Clotting disorder Other Cancer Sister Comments: throat and mouth Family Status - Relation Status Age at Mother Father Other Other Sister Level of Service:99664 CT OFFICE/OUTPATIENT ESTABLISHED LOW MDM 20 MIN Reason for Visit and Comments: Bariatrics Post Op Follow-up [884] - Pop [facility] Progress Noteon 02-27-2024 Progress Note [facility]ARE [facility]ENTER ROOMING NOTE POST WEIGHT LOSS SURGERY FOLLOW UP Patient: Blaise Quirozht Service Date: 02/27/2024 Patient is 1 year(s) s/p Sleeve Gastrectomy Today's Metrics: Post-Surgical Weight Loss Date: 02/27/24 Height: 5' 3 (160 cm) Weight: 225 lb 9.6 oz (102 kg) BMI: 39.96 Weight Change: -3 lbs Total Weight Change: -59.4 lbs % EBWL: 39% Post-op Weight Metrics: Post-Surgical Weight Loss Date: 02/27/24 Height: 5' 3 (160 cm) Weight: 225 lb 9.6 oz (102 kg) BMI: 39.96 Weight Change: -3 lbs Total Weight Change: -59.4 lbs % EBWL: 39% (From Surgical Weight Loss Tracker) Patient has the following questions: None Reported Pain: Patient rates pain on scale 0-10 as: 0 Exercise Compliance: Exercising: no If yes: Type: 0 Times per week: 0 Min per session: 0 Falls Risk Assessment Patient does take medications which affect BP or mental status Patient does not t have newly prescribed or changed dosage of medications within past 30 days which affect BP or mental status Patient has not fallen in the past 2 months Patient does not t demonstrate unsteady gait Patient uses the following ambulatory assistive devices: cane Patient states the presence of the following traits which increases risk of fall: bad back Patient is not on home O2 Pre-op Weight Metrics: Labs Completed: no - If NO, patient instructed to get labs drawn today or ROSEY If YES: Labs completed at [facility]? N/A If yes see Labs Tab Labs completed at Non-[facility] facility? N/A If yes see Encounters Tab - Orders only - Historical Provider - Date: Completed by: Anne Swanson MA Normal [facility] VITAMIN D DEFICIENCY SCREENI (VIT D 25)on 02-27-2024 VIT D 25-OH, TOTAL 33 ng/mL Normal 30-100 [facility] Comment on above: Result Comment: OLU Ashraf COMMENTS: Therapy is based on measurement of Total 25-OHD with the following classification levels: Less than 20 ng/mL: Indicative of Vit D deficiency 20-30 ng/mL: Suggests Vit D insufficiency Optimal: Greater than or equal to 30 ng/mL Test performed by [employer] Competitive Immunoassay, measuring Total Vitamin D, not individual fractions. Performed By: #### L [id number] ####Shake Backboard Notcher: EDWARD MENDIETA ([phone])[facility] ([facility])[address] [place] [address] 36on 01-09-2024 36 Please sign. Thanks! Normal [facility] Office Visiton 01-09-2024 Follow-up visit [id number] Blaise Monroe 1955 F Date Provider Department Center 01/09/2024 MIKAYLA [facility] Family History Problem Relation Age of Onset Stroke Mother Diabetes Father Alzheimer's disease Mother Clotting disorder Other Cancer Sister Comments: throat and mouth Family Status - Relation Status Age at Mother Father Other Other Sister Level of Service:95854 CT OFFICE/OUTPATIENT ESTABLISHED LOW MDM 20 MIN Reason for Visit and Comments: Bariatrics Post Op Follow-up [884] - POP FU [facility] Progress Noteon 01-09-2024 Progress Note [facility] ROOMING NOTE POST WEIGHT LOSS SURGERY WEIGHT LOSS MANAGEMENT Patient: Blaise Monroe Date of : 1955 Service Date: 01/09/2024 This patient is alone for the evaluation today. Reason patient is here today: POP FU. Date of Weight Loss Surgery: 02-15-22 Procedure Performed: Laparoscopic Sleeve Gastrectomy Initial Weight: @FLOWLAST([id number]) @ Today's weight has decreased from the last visit Pain: Patient rates pain on scale 0-10 as: 0 Falls Risk Assessment Patient does not take medications which affect BP or mental status Patient does not have newly prescribed or changed dosage of medications within past 30 days which affect BP or mental status Patient has not fallen in the past 2 months Patient does not demonstrate unsteady gait Patient uses the following ambulatory assistive devices: cane Patient states the presence of the following traits which increases risk of fall: knee and lower back pain Patient is moderate risk for falls. Patient is not on home O2 Post-op Weight Metrics: %EBWL: % EBWL: 37% Weight Change Since Last Visit: Weight Change: -5.4 lbs Weight Change from Highest Pre-op Weight: Total Weight Change: -56.4 lbs Completed by: Chetna Kamara LPN [facility] [id number] 12-31-2023 [id number] Please let the pt know Zofran is sent to her pharmacy [facility] [phone] Pt notified that Zofran was sent to pharmacy. [facility] 36on 12-31-2023 36 Noted Vitamin D addressed in OV with Dr. Frazier-see note 12/12/2023. Rx started, per Dr. Frazier. Closing encounter. [facility] [phone] 12-17-2023 [id number] Please let the pt know Vit D3 5000 units is sent to her pharmacy Vit d is to be recheck in 3 month Thank you [facility] [phone] Pt notified that Vit D sent to pharmacy and is to be rechecked in 3 months. Normal [facility] Office Visiton 12-12-2023 Follow-up visit [id number] Blaise Monroe 1955 F Date Provider Department Center 12/12/2023 [id number] [facility] None Family History Problem Relation Age of Onset Stroke Mother Diabetes Father Alzheimer's disease Mother Clotting disorder Other Cancer Sister Comments: throat and mouth Family Status - Relation Status Age at Mother Father Other Other Sister Level of Service:39589 CT OFFICE/OUTPATIENT ESTABLISHED LOW MDM 20 MIN Reason for Visit and Comments: Bariatrics Post Op Follow-up [884] - POP FU Normal [facility] Progress Noteon 12-12-2023 Progress Note [facility] ROOMING NOTE POST WEIGHT LOSS SURGERY WEIGHT LOSS MANAGEMENT Patient: Blaise Monroe Date of : 1955 Service Date: 12/12/2023 This patient is alone for the evaluation today. Reason patient is here today: POP FU. Date of Weight Loss Surgery: 02-15-22 Procedure Performed: Laparoscopic Sleeve Gastrectomy Initial Weight: @FLOWLAST([id number]) @ Today's weight has decreased from the last visit Pain: Patient rates pain on scale 0-10 as: 0 Falls Risk Assessment Patient does not take medications which affect BP or mental status Patient does not have newly prescribed or changed dosage of medications within past 30 days which affect BP or mental status Patient has not fallen in the past 2 months Patient does not demonstrate unsteady gait Patient uses the following ambulatory assistive devices: cane Patient states the presence of the following traits which increases risk of fall: hip and knee pain Patient is moderate risk for falls. Patient is not on home O2 Post-op Weight Metrics: %EBWL: % EBWL: 33% Weight Change Since Last Visit: Weight Change: -4.6 lbs Weight Change from Highest Pre-op Weight: Total Weight Change: -51 lbs Completed by: Chetna Kamara LPN [facility] 36on 12-11-2023 36 Please sign pt appt 12-12-23 [facility] 3612-03-2023 36 LSG 02/15/2022 JZ 12/12/20231881-zadw-cz Dr. Frazier 11/27/2023 Vitamin D: 22 (L) MyChart sent regarding lab. Normal [facility] [id number] 11-29-2023 [id number] Left a message for the pt Blood work results do not show any infection Blood work results are not intended to identify any cancers Will discuss in details the results during the upcoming robert on 12/11 Mohattiero can cause weight loss and discomfort Will discuss it during the robert in details Normal [facility] [id number] LSG 02/15/2022 JZ Last OV-11/14/23 with NK, next 12/12/23 with NK Will route to clinical team for follow up Normal [facility] CBC (HEMOGRAM)on 11-27-2023 Erythrocyte distribution width (RBC) [Ratio] 14.6 % Normal 11.5-15.0 [facility] Comment on above: Order Comment: These orders are set for an approximate date - they can be drawn up to 3 months prior to the Expected Date on this Req.Please send results to: [place] [address] [facility] [address] - [phone] if not done at a [facility], please send to:[facility] - [address] [place] [address], [address] [facility], [address]Jwdsg: [phone] Ooaiese Name: Blaise Monroe - 1955Order Created by : Anne Swanson MA Performed By: #### L AB294 ####Shake Backboard Notcher: MELBA PAINTER ([id number])[facility] (SWRLAB)[address] [place] [address] Hematocrit (Bld) [Volume fraction] 40.3 % Normal 35.0-47.0 [facility] Comment on above: Order Comment: These orders are set for an approximate date - they can be drawn up to 3 months prior to the Expected Date on this Req.Please send results to: ELISSA Lopez [facility] [address] [facility] [address] - [phone] if not done at a [facility], please send to:[address], [address]Ltreg: [phone] Xtobeqv Name: Blaise Monroe 1955Order Created by : Anne Swanson MA Performed By: #### L AB294 ####Shake Backboard Notcher: MELBA PAINTER ([id number])[facility] (SWRLAB)[address] [place] [address] Hemoglobin (Bld) [Mass/Vol] 13.3 g/dL Normal 11.7-16.0 [facility] Comment on above: Order Comment: These orders are set for an approximate date - they can be drawn up to 3 months prior to the Expected Date on this Req.Please send results to: ELISSA Lopez [address] [facility] [address] - [phone] if not done at a [facility], please send to:[address], [address]Lzndq: [phone] Sugljar Name: Blaise Monroe 1955Order Created by : Anne Swanson MA Performed By: #### L AB294 ####Shake Backboard Notcher: MELBA PAINTER ([id number])[facility] (SWRLAB)[address] [place] [address] MCH (RBC) [Entitic mass] 29.1 pg Normal 26.0-34.0 [facility] Comment on above: Order Comment: These orders are set for an approximate date - they can be drawn up to 3 months prior to the Expected Date on this Req.Please send results to: [place]SA [place] [address] [facility] [address] - [phone] if not done at a [facility], please send to:[address], [address]Rqsuv: [phone] Eheater Name: [facility]ise [facility] 1955Order Created by : Anne Swanson MA Performed By: #### L AB294 ####Shake Backboard Notcher: MELBA PAINTER ([id number])[facility] (SWRLAB)[address] [place] [address] MCHC 33.0 % Normal 30.5-36.0 [facility] Comment on above: Order Comment: These orders are set for an approximate date - they can be drawn up to 3 months prior to the Expected Date on this Req.Please send results to: ELISSA Lopez [place] [address] [facility] [address] - [phone] if not done at a [facility], please send to:[address] [address]Obpsq: [phone] Sukrxtv Name: [facility]ise [facility] 1955Order Created by : Anne Swanson MA Performed By: #### L AB294 ####Shake Backboard Notcher: MELBA PAINTER ([id number])[facility] (RLAB)[address] [place] [address] MCV (RBC) [Entitic vol] 88.2 fL Normal 77.0-99.0 [facility] Comment on above: Order Comment: These orders are set for an approximate date - they can be drawn up to 3 months prior to the Expected Date on this Req.Please send results to: ELISSA Jessica [place] [address] [facility] [address] - [phone] if not done at a [facility], please send to:[address], [address], [address]Tthtx: [phone] Xdhtjvn Name: [facility]ise [facility] 1955Order Created by : Anne Swanson MA Performed By: #### L AB294 ####Shake Backboard Notcher: MELBA PAINTER ([id number])[facility] (SWRLAB)[address] [place] [address] [place] Platelet mean volume (Bld) [Entitic vol] 9.1 fL Normal 9.0-12.7 [facility] Comment on above: Order Comment: These orders are set for an approximate date - they can be drawn up to 3 months prior to the Expected Date on this Req.Please send results to: ELISSA Lopez [address] [facility] [address] - [phone] if not done at a [facility], please send to:[address] [address]Rejra: [phone] Crjlatk Name: Blaise [facility] 1955Order Created by : Anne Swanson MA Result Comment: MPV is a calculated measurement using platelet volume ratio Performed By: #### L AB294 ####Shake Backboard Notcher: MELBA PAINTER ([id number])[facility] (SWRLAB)[address] [place] [address] [place] Platelets (Bld) [#/Vol] 351 10*3/uL Normal 140-440 [facility] Comment on above: Order Comment: These orders are set for an approximate date - they can be drawn up to 3 months prior to the Expected Date on this Req.Please send results to: ELISSA BRONSON[address] [facility] [address] - [phone] if not done at a [facility], please send to:[address], [address]Adrzc: [phone] Zgrozhj Name: [facility]ise [facility] 1955Order Created by : Anne Swanson MA Performed By: #### L AB294 ####Shake Backboard Notcher: MELBA PAINTER ([id number])[facility] (SWRLAB)[address] [place] [address] RBC (Bld) [#/Vol] 4.57 10*6/uL Normal 3.80-5.20 [facility] Comment on above: Order Comment: These orders are set for an approximate date - they can be drawn up to 3 months prior to the Expected Date on this Req.Please send results to: ELISSA Lopez [place] [address] [address] [facility] [address] - [phone] if not done at a [facility], please send to:[address], [address]Omcdu: [phone] Ldgnxvz Name: Blaise Monroe 1955Order Created by : Anne Swanson MA Performed By: #### L AB294 ####Shake Backboard Notcher: MELBA PAINTER ([id number])[facility] (SWRLAB)[address] [place] [address] WBC (Bld) [#/Vol] 6.4 10*3/uL Normal 3.6-10.7 [facility] Comment on above: Order Comment: These orders are set for an approximate date - they can be drawn up to 3 months prior to the Expected Date on this Req.Please send results to: ELISSA Lopez [place] [address] [address] [facility] [address] - [phone] if not done at a [facility], please send to:[address], [address], [address]Ilxup: [phone] Znoxvsc Name: Blaise Monroe - 1955Order Created by : Anne Swanson MA Performed By: #### L AB294 ####Shake Backboard Notcher: MELBA PAINTER ([id number])[facility] (SWRLAB)[address] [place] [address] COMPREHENSIVE METABOLIC PANE Elder 11-27-2023 Albumin [Mass/Vol] 4.2 g/dL Normal 3.5-5.0 [facility] Comment on above: Order Comment: These orders are set for an approximate date - they can be drawn up to 3 months prior to the Expected Date on this Req.Please send results to: [place] [address] [address] [facility] [address] - [phone] if not done at a [facility], please send to:[address], [address]Bdlou: [phone] Hujiktn Name: Bl[facility]ise [facility] 1955Order Created by : Anne Swanson MA Performed By: #### L AB103, LAB17, LAB68, LAB67, LAB94, LAB69 ####Shake Backboard Notcher: MELBA PAINTER ([id number])[facility] iBuildAppTMAN (SWRLAB)[address] [place] [address] ALP [Catalytic activity/Vol] 99 U/L Normal 38-126 [facility] Comment on above: Order Comment: These orders are set for an approximate date - they can be drawn up to 3 months prior to the Expected Date on this Req.Please send results to: [place] [address] [address] [facility] [address] - [phone] if not done at a [facility], please send to:[address], [address]Tbmda: [phone] Ttjypio Name: Bl[facility]ise [facility] 1955Order Created by : Anne Swanson MA Performed By: #### L AB103, LAB17, LAB68, LAB67, LAB94, LAB69 ####Shake Backboard Notcher: MELBA PAINTER ([id number])[facility] (SWRLAB)[address] [place] [address] [place] ALT [Catalytic activity/Vol] 18 U/L Normal 0-34 [facility] Comment on above: Order Comment: These orders are set for an approximate date - they can be drawn up to 3 months prior to the Expected Date on this Req.Please send results to: [place]SA [place] [address]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 48.6 pg/mL 0-100 [facility] Laboratory - Hematology and Cell countsOrdered By: Elissa Dial on 09-07-2023 Erythrocyte distribution width (RBC) [Entitic vol] 49.1 fL 35.1-43.9 [facility] Erythrocyte distribution width (RBC) [Ratio] 15.3 % 11.6-14.6 [facility] Immature granulocytes/100 WBC (Bld) 0.300 % 0.0-0.9 [facility] Comment on above: IG% - Immature Granu locytes (promyelocytes, myelocytes and metamyelocytes) > 1% indicates that a LEFT SHIFT is Present. MCH (RBC) [Entitic mass] 27.4 pg 27.0-32.0 [facility] Nucleated RBC/100 WBC (Bld) [Ratio] 0 % 0-5 [facility] MCHC Auto (RBC) [Mass/Vol]Or dered By: Elissa Dial on 09-07-2023 MCHC (RBC) [Mass/Vol] 31.5 g/dL 32-[address] [facility] No Panel InformationOrdered By: Elissa Dial on 09-07-2023 Thyroid Stimulating Hormone (TSH) 1.45 uIU/mL 0.358-3.74 [facility] Platelets bldOrdered By: Carrol Dial on 09-07-2023 Platelets (Bld) [#/Vol] 360 10*3/uL 150-450 [facility] Whole blood hemoglobin A1c/t otal hemoglobin ratio (mass fraction)Ordered By: Elissa Dial on 09-07-2023 HbA1c (Bld) [Mass fraction] 6.0 % 3.8-5.6 [facility] Comment on above: Normal < 5.7 % Predi abetic 5.7 - 6.4 % Diabetic >or= 6.5 % Please note range changes. 36on 09-03-2023 36 LSG 02/15/2022 JZ 08/21/2023 Vitamin D: 17 (L) Ferritin: 11 (L end NL) H/H and Iron: WNL Called and left VM for pt to return the call. Sent [employer] message. Normal [facility] CBC (HEMOGRAM)on 08-21-2023 Erythrocyte distribution width (RBC) [Ratio] 15.5 % High 11.5-14.5 [facility] Comment on above: Performed By: #### L AB294 ####Shake Backboard Notcher: MELBA PAINTER ([phone])[facility])[address] [place] [address] ERYTHROCYTE MEAN CORPUSCULAR HEMOGLOBIN CONCENTRATION (G/DL) BY AUTOMATED 32.2 % Normal 32.0-36.0 [facility] Comment on above: Performed By: #### L AB294 ####Shake Backboard Notcher: MELBA PAINTER ([phone])[facility] ([facility])[address] [place] [address] Hematocrit (Bld) [Volume fraction] 39.4 % Normal 35.0-47.0 [facility] Comment on above: Performed By: #### L AB294 ####Shake Backboard Notcher: MELBA PAINTER ([phone])[facility] ([facility])[address] [place] [address] Hemoglobin (Bld) [Mass/Vol] 12.7 g/dL Normal 11.7-16.0 [facility] Comment on above: Performed By: #### L AB294 ####Shake Backboard Notcher: MELBA PAINTER ([phone])[facility] ([facility])[address] [place] [address] MCH (RBC) [Entitic mass] 28.2 pg Normal 26.0-34.0 [facility] Comment on above: Performed By: #### L AB294 ####Shake Backboard Notcher: MELBA PAINTER ([phone])[facility] ([facility])[address] [place] [address] MCV (RBC) [Entitic vol] 87.4 fL Normal 80.0-98.0 [facility] Comment on above: Performed By: #### L AB294 ####Shake Backboard Notcher: MELBA PAINTER ([phone])[facility] ([facility])[address] [place] [address] Platelet mean volume (Bld) [Entitic vol] 9.7 fL Normal 7.4-12.4 [facility] Comment on above: Result Comment: MPV is a calculated measurement using platelet volume ratio Performed By: #### L AB294 ####Shake Backboard Notcher: MELBA PAINTER ([phone])[facility] ([facility])[address] [place] [address] Platelets (Bld) [#/Vol] 319 10*3/uL Normal 140-440 [facility] Comment on above: Performed By: #### L AB294 ####Shake Backboard Notcher: MELBA PAINTER ([phone])[facility] ([facility])[address] RBC (Bld) [#/Vol] 4.51 10*6/uL Normal 3.8-5.20 [facility] Comment on above: Performed By: #### L AB294 ####Shake Backboard Notcher: MELBA PAINTER ([phone])[facility] ([facility])[address] WBC (Bld) [#/Vol] 6.5 10*3/uL Normal 3.6-10.7 [facility] Comment on above: Performed By: #### L AB294 ####Shake Backboard Notcher: MELBA PAINTER ([phone])[facility] ([facility])[address] [place] [address] COMPREHENSIVE METABOLIC PANE Elder 08-21-2023 Albumin [Mass/Vol] 4.3 g/dL Normal 3.5-5.0 [facility] Comment on above: Performed By: #### L AB68, LAB69, LAB94, LAB17, [id number], LAB67 ####Shake Backboard Notcher: MELBA PAINTER ([phone])[facility] ([facility])[address] [place] [address] ALP [Catalytic activity/Vol] 100 U/L Normal 38-126 [facility] Comment on above: Performed By: #### L AB68, LAB69, LAB94, LAB17, [id number], LAB67 ####Shake Backboard Notcher: MELBA PAINTER ([phone])[facility] ([facility])[address] ALT [Catalytic activity/Vol] 20 U/L Normal 0-34 [facility] Comment on above: Performed By: #### L AB68, LAB69, LAB94, LAB17, [id number], LAB67 ####Shake Backboard Notcher: MELBA PAINTER ([phone])[facility] ([facility])[address] Anion gap [Moles/Vol] 8 mmol/L Normal 3-13 [facility] Comment on above: Performed By: #### L AB68, LAB69, LAB94, LAB17, AET218, LAB67 ####Shake Backboard Notcher: MELBA PAINTER ([phone])[facility] ([facility])[address] [place] [address] AST [Catalytic activity/Vol] 23 U/L Normal 15-46 [facility] Comment on above: Performed By: #### L AB68, LAB69, LAB94, LAB17, [id number], LAB67 ####Shake Backboard Notcher: MELBA PAINTER ([phone])[facility] ([facility])[address] [place] [address] Bilirubin [Mass/Vol] 0.7 mg/dL Normal 0.2-1.3 [facility] Comment on above: Performed By: #### L AB68, LAB69, LAB94, LAB17, [id number], LAB67 ####Shake Backboard Notcher: MELBA PAINTER ([phone])[facility] ([facility])[address] [place] [address] Calcium [Mass/Vol] 9.3 mg/dL Normal 8.4-10.4 [facility] Comment on above: Performed By: #### L AB68, LAB69, LAB94, LAB17, [id number], LAB67 ####Shake Backboard Notcher: MELBA PAINTER ([id number])[facility] ([facility])[address] [place] [address] [place] Chloride [Moles/Vol] 104 mmol/L Normal 98-107 [facility] Comment on above: Performed By: #### L AB68, LAB69, LAB94, LAB17, UKV249, LAB67 ####Shake Backboard Notcher: MELBA PAINTER ([phone])[facility]ENTER[facility] SOTELOPRIYANKA [facility] ([facility])[address] [place] [address] [place] CO2 [Moles/Vol] 29 mmol/L Normal 22-30 [facility] Comment on above: Performed By: #### L AB68, LAB69, LAB94, LAB17, [id number], LAB67 ####Shake Backboard Notcher: MELBA PAINTER ([id number])[facility] ([facility])[address] [place] [address] [place] Creatinine [Mass/Vol] 0.65 mg/dL Normal 0.52-1.04 [facility] Comment on above: Performed By: #### L AB68, LAB69, LAB94, LAB17, VNM371, LAB67 ####Shake Backboard Notcher: MELBA PAINTER ([phone])[facility] ([facility])[address] [place] [address] GLOMERULAR FILTRATION RATE ML/MIN/1.73 SQ M.PREDICTED >90.0 Normal >60.0 [facility] Comment on above: Result Comment: Calc ulation based on the Chronic Kidney Disease Epidemiology Collaboration (CKD-EPI) equation refit without adjustment for race Performed By: #### L AB68, LAB69, LAB94, LAB17, ZIH726, LAB67 ####Shake Backboard Notcher: MELBA PAINTER ([id number])[facility] ([facility])[address] [place] [address] [place] Glucose [Mass/Vol] 116 mg/dL High 70-100 [facility] Comment on above: Performed By: #### L AB68, LAB69, LAB94, LAB17, JKR356, LAB67 ####Shake Backboard Notcher: MELBA PAINTER ([id number])[facility] ([facility])[address] [place] [address] [place] Potassium [Moles/Vol] 3.9 mmol/L Normal 3.5-5.1 [facility] Comment on above: Performed By: #### L AB68, LAB69, LAB94, LAB17, QZN786, LAB67 ####Shake Backboard Notcher: MELBA PAINTER ([id number])[facility] ([facility])[address] Protein [Mass/Vol] 7.5 g/dL Normal 6.3-8.2 [facility] Comment on above: Performed By: #### L AB68, LAB69, LAB94, LAB17, HVF620, LAB67 ####Shake Backboard Notcher: MELBA PAINTER ([phone])[facility] ([facility])[address] [place] [address] Sodium [Moles/Vol] 141 mmol/L Normal 135-145 [facility] Comment on above: Performed By: #### L AB68, LAB69, LAB94, LAB17, LOK094, LAB67 ####Shake Backboard Notcher: MELBA PAINTER ([phone])[facility] ([facility])[address] [place] [address] Urea nitrogen [Mass/Vol] 18 mg/dL High 7-17 [facility] Comment on above: Performed By: #### L AB68, LAB69, LAB94, LAB17, LDX164, LAB67 ####Shake Backboard Notcher: MELBA PAINTER ([id number])[facility] (SWRLAB)[address] [place] [address] FERRITINon 08-21-2023 Ferritin [Mass/Vol] 11 ng/mL Normal 11-264 [facility] Comment on above: Performed By: #### L AB68, LAB69, LAB94, LAB17, [id number], LAB67 ####Shake Backboard Notcher: MELBA PAINTER ([phone])[facility]ENTER[facility] MATHEW RITTMAN (SWRLAB)[address] FOLATEon 08-21-2023 FOLATE 10.7 ng/mL Normal >=2.9 [facility] Comment on above: Performed By: #### L AB68, LAB69, LAB94, LAB17, [id number], LAB67 ####Shake Backboard Notcher: MELBA PAINTER ([phone])[facility]ENTER[facility] PRIYANKA RITTMAN (SWRLAB)[address] IRONon 08-21-2023 IRON, TOTAL 82 ug/dL Normal 37-170 [facility] Comment on above: Performed By: #### L AB68, LAB69, LAB94, LAB17, FAB653, LAB67 ####Shake Backboard Notcher: MELBA PAINTER ([phone])[facility]OSPITALPRIYANKACHELI PHANTMAN (SWRLAB)[address] MAGNESIUMon 08-21-2023 Magnesium [Mass/Vol] 1.6 mg/dL Normal 1.6-2.3 [facility] Comment on above: Performed By: #### L AB68, LAB69, LAB94, LAB17, XHI340, LAB67 ####Shake Backboard Notcher: MELBA PAINTER ([phone])[facility] HOSPITALPRIYANKA COLEEN (SWRLAB)[address] [place] [address] VITAMIN B1, WHOLE BLOODon VITAMIN B1,WHOLE BLOOD 120 nmol/L Normal 70-180 [facility] Comment on above: Result Comment: INTE RPRETIVE INFORMATION: Vitamin B1, Whole Blood This assay measures the concentration of thiamine diphosphate (TDP), the primary active form of vitamin B1. Approximately 90 percent of vitamin B1 present in whole blood is TDP. Thiamine and thiamine monophosphate, which comprise the remaining 10 percent, are not measured. This test was developed and its performance characteristics determined by [employer]. It has not been cleared or approved by the US Food and Drug Administration. This test was performed in a CLIA certified laboratory and is intended for clinical purposes. Performed By: [employer] [address] [place] [id number] Product Safety Administrator: Rojelio Torres MD, PhD CLIA Number: [id number] Performed By: #### L [id number] ####[facility] ([facility])[address] [place] [id number] [facility] VITAMIN B12on 08-21-2023 Cobalamin (Vitamin B12) [Mass/Vol] 597 pg/mL Normal 239-931 [facility] Comment on above: Performed By: #### L AB68, LAB69, LAB94, LAB17, OOE236, LAB67 ####Shake Backboard Notcher: MELBA PAINTER ([phone])[facility] HOSPITALEZEKIEL (SWRLAB)[address] [place] [address] VITAMIN D DEFICIENCY SCREENI NG (VIT D 25)on 08-21-2023 VIT D 25-OH, TOTAL 17 ng/mL Low 30-100 [facility] Comment on above: Result Comment: OLU Ashraf COMMENTS: Therapy is based on measurement of Total 25-OHD with the following classification levels: Less than 20 ng/mL: Indicative of Vit D deficiency 20-30 ng/mL: Suggests Vit D insufficiency Optimal: Greater than or equal to 30 ng/mL Test performed by [employer] Competitive Immunoassay, measuring Total Vitamin D, not individual fractions. Performed By: #### L [id number] ####Shake Backboard Notcher: EDWARD MENDIETA ([phone])[facility] (SBHLAB)[address] [place] [address] ZINCon 08-21-2023 ZINC, SERUM 82.7 ug/dL Normal 60.0-120.0 [facility] Comment on above: Result Comment: INTE RPRETIVE INFORMATION: Zinc, Serum or Plasma Elevated results may be due to skin or collection-related contamination, including the use of a noncertified metal-free collection/transport tube. If contamination concerns exist due to elevated levels of serum/plasma zinc, confirmation with a second specimen collected in a certified metal-free tube is recommended. Circulating zinc concentrations are dependent on albumin status and are depressed with malnutrition. Zinc may also be lowered with infection, inflammation, stress, oral contraceptives, and . Zinc may be elevated with zinc supplementation or fasting. Elevated zinc concentrations may interfere with copper absorption. This test was developed and its performance characteristics determined by [employer]. It has not been cleared or approved by the US Food and Drug Administration. This test was performed in a CLIA certified laboratory and is intended for clinical purposes. Performed By: [employer] [address] [place] [address] Product Safety Administrator: Rojelio Torres MD, PhD CLIA Number: [id number] Performed By: #### L [id number] ####[facility] ([facility])[address] [place] [address] [facility] Office Visiton 08-10-2023 Follow-up visit [id number] Blaise Monroe 1955 F Date Provider Department Center 08/10/2023 [id number] FRAZIER [facility] None Family History Problem Relation Age of Onset Stroke Mother Diabetes Father Alzheimer's disease Mother Clotting disorder Other Cancer Sister Comments: throat and mouth Family Status - Relation Status Age at Mother Father Other Other Sister Level of Service:96692 CT OFFICE/OUTPATIENT ESTABLISHED MOD MDM 30-39 MIN Reason for Visit and Comments: Bariatrics Post Op Follow-up [884] - Pop d/e Normal [facility] Progress Noteon 08-10-2023 Progress Note [facility] ROOMING NOTE POST WEIGHT LOSS SURGERY FOLLOW UP Patient: Blaise Monroe Service Date: 08/10/2023 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 Today's Metrics: Post-Surgical Weight Loss Date: 08/10/23 Height: 5' 3.5 (161.3 cm) Weight: 243 lb 3.2 oz (110 kg) BMI: 42.40 Weight Change: 4.2 lbs Total Weight Change: -41.8 lbs % EBWL: 27% Post-op Weight Metrics: Post-Surgical Weight Loss Date: 08/10/23 Height: 5' 3.5 (161.3 cm) Weight: 243 lb 3.2 oz (110 kg) BMI: 42.40 Weight Change: 4.2 lbs Total Weight Change: -41.8 lbs % EBWL: 27% (From Surgical Weight Loss Tracker) Patient has the following questions: None Reported Pain: Patient rates pain on scale 0-10 as: 0 Exercise Compliance: Exercising: no If yes: Type: none Times per week: 0 Min per session: 0 Falls Risk Assessment Patient does take medications which affect BP or mental status Patient does not t have newly prescribed or changed dosage of medications within past 30 days which affect BP or mental status Patient has not fallen in the past 2 months Patient does not t demonstrate unsteady gait Patient uses the following ambulatory assistive devices: cane Patient states the presence of the following traits which increases risk of fall: bad knees Patient is not on home O2 Pre-op Weight Metrics: Labs Completed: no - If NO, patient instructed to get labs drawn today or ROSEY If YES: Labs completed at [facility]? N/A If yes see Labs Tab Labs completed at Non-[facility] facility? N/A If yes see Encounters Tab - Orders only - Historical Provider - Date: Completed by: Anne Swanson MA Normal [facility] 25-hydroxyvitamin D3 [Mass/V ol]on 06-05-2023 Interpretation and review of laboratory results Abnormal [facility] Therapy is based on measurement of Total 25-OHD with the following classification levels: Less than 20 ng/mL: Indicative of Vit D deficiency 20-30 ng/mL: Suggests Vit D insufficiency Optimal: Greater than or equal to 30 ng/mL Test performed by [employer] Competitive Immunoassay, measuring Total Vitamin D, not individual fractions. [facility] Ferritinon 06-05-2023 Ferritin [Mass/Vol] 17 ng/mL 11 - 264 ng/mL [facility] Ferritin [Mass/Vol]on 2022 Interpretation and review of laboratory results Normal [facility] Hemoglobin (Bld) [Mass/Vol]O rdered By: Kimberly Crum on 06-05-2023 Hematocrit (Bld) [Volume fraction] 38.0 % 35.0 - 47.0 % [facility] Interpretation and review of laboratory results Normal [facility] Hemoglobin and hematocrit, b loodOrdered By: Kimberly Crum on 06-05-2023 Hemoglobin (Bld) [Mass/Vol] 11.9 g/dL 11.7 - 16.0 g/dL [facility] Iron and Iron binding capaci ty panelon 06-05-2023 Interpretation and review of laboratory results Normal [facility] Iron [Mass/Vol] 68 ug/dL 37 - 170 ug/dL [facility] Vitamin D 25 hydroxyon 06-05 25-hydroxyvitamin D3 [Mass/Vol] 24 ng/mL Low 30 - 100 ng/mL [facility] .Auto Diffon 06-03-2023 Basophil, Absolute 0.0 10 3/mcL Normal 0.0-0.2 [facility] ([place]) Comment on above: Performed By: #### A DIFF, ANEU, PRO, CBC, MG, BMP, GFR #### [address] [address] Basophils/100 WBC (Bld) 0.3 % Normal 0.0-2.5 [facility] ([place]) Comment on above: Performed By: #### A DIFF, ANEU, PRO, CBC, MG, BMP, GFR #### [address] [address] Eosinophil, Absolute 0.3 10 3/mcL Normal 0.0-0.4 [facility] ([place]) Comment on above: Performed By: #### A DIFF, ANEU, PRO, CBC, MG, BMP, GFR #### [address] [address] Eosinophils/100 WBC (Bld) 3.7 % Normal 0.0-7.0 [facility] ([place]) Comment on above: Performed By: #### A DIFF, ANEU, PRO, CBC, MG, BMP, GFR #### [address] [address] Lymphocyte, Absolute 1.7 10 3/mcL Normal 0.8-3.9 [facility] ([place]) Comment on above: Performed By: #### A DIFF, ANEU, PRO, CBC, MG, BMP, GFR #### [address] [address] Lymphocytes/100 WBC (Bld) 24.2 % Normal 10.0-50.0 [facility] ([place]) Comment on above: Performed By: #### A DIFF, ANEU, PRO, CBC, MG, BMP, GFR #### [address] [address] Monocyte, Absolute 0.4 10 3/mcL Normal 0.2-1.0 [facility] ([place]) Comment on above: Performed By: #### A DIFF, ANEU, PRO, CBC, MG, BMP, GFR #### [address] [address] Monocytes/100 WBC (Bld) 6.0 % Normal 1.7-13.0 [facility] ([place]) Comment on above: Performed By: #### A DIFF, ANEU, PRO, CBC, MG, BMP, GFR #### [address] [address] Neutrophils/100 WBC (Bld) 65.8 % Normal 37.0-80.0 [facility] ([place]) Comment on above: Performed By: #### A DIFF, ANEU, PRO, CBC, MG, BMP, GFR #### [address] [address] .GFRon 06-03-2023 GFR Non- 70 ml/min/1.73sqm Normal [facility] ([place]) Comment on above: Result Comment: GFR Population mean for , Non- Americans Ages 20-29 = 116 mL/min/1.73 sq.m. Ages 30-39 = 107 mL/min/1.73 sq.m. Ages 40-49 = 99 mL/min/1.73 sq.m. Ages 50-59 = 93 mL/min/1.73 sq.m. Ages 60-69 = 85 mL/min/1.73 sq.m. Ages 70+ = 75 mL/min/1.73 sq.m. Chronic Kidney Disease: Less than 60 mL/min/1.73 square meters End Stage Renal Disease: Less than 15 mL/min/1.73 square meters Performed By: #### A DIFF, ANEU, PRO, CBC, MG, BMP, GFR #### [address] [address] GFR 85 ml/min/1.73sqm Normal [facility] ([place]) Comment on above: Result Comment: GFR Population mean for , Non- Americans Ages 20-29 = 116 mL/min/1.73 sq.m. Ages 30-39 = 107 mL/min/1.73 sq.m. Ages 40-49 = 99 mL/min/1.73 sq.m. Ages 50-59 = 93 mL/min/1.73 sq.m. Ages 60-69 = 85 mL/min/1.73 sq.m. Ages 70+ = 75 mL/min/1.73 sq.m. Chronic Kidney Disease: Less than 60 mL/min/1.73 square meters End Stage Renal Disease: Less than 15 mL/min/1.73 square meters Performed By: #### A DIFF, ANEU, PRO, CBC, MG, BMP, GFR #### [address] [address] .MDWon 06-03-2023 Monocyte Distribution Width 22.62 High 0.00-20.00 [facility] ([place]) Comment on above: Result Comment: For adults in ED, MDW>20.0 may be associated with a higher risk of sepsis during the first 12hrs of hospital admission Performed By: #### A DIFF, ANEU, PRO, CBC, MG, BMP, GFR #### [address] [address] .NEUABSon 06-03-2023 Neutrophil, Absolute 4.7 10 3/mcL Normal 2.9-6.2 [facility] ([place]) Comment on above: Performed By: #### A DIFF, ANEU, PRO, CBC, MG, BMP, GFR #### [address] [address] BMPon 06-03-2023 BUN/Creatinine Ratio 26 ratio Normal 7-27 [facility] ([place]) Comment on above: Performed By: #### A DIFF, ANEU, PRO, CBC, MG, BMP, GFR #### [address] [address] Calcium [Mass/Vol] 8.4 mg/dL Normal 8.4-10.2 [facility] ([place]) Comment on above: Performed By: #### A DIFF, ANEU, PRO, CBC, MG, BMP, GFR #### [address] [address] Chloride [Moles/Vol] 101 mmol/L Normal 98-107 [facility] ([place]) Comment on above: Performed By: #### A DIFF, ANEU, PRO, CBC, MG, BMP, GFR #### [address] [address] CO2 [Moles/Vol] 28 mmol/L Normal 23-31 [facility] ([place]) Comment on above: Performed By: #### A DIFF, ANEU, PRO, CBC, MG, BMP, GFR #### [address] [address] Creatinine [Mass/Vol] 0.81 mg/dL Normal 0.55-1.02 [facility] ([place]) Comment on above: Performed By: #### A DIFF, ANEU, PRO, CBC, MG, BMP, GFR #### [address] [address] Electrolyte Balance 7.0 mEq/L Normal 4.0-15.0 [facility] ([place]) Comment on above: Performed By: #### A DIFF, ANEU, PRO, CBC, MG, BMP, GFR #### [address] [address] Glucose [Mass/Vol] 191 mg/dL High 80-115 [facility] ([place]) Comment on above: Performed By: #### A DIFF, ANEU, PRO, CBC, MG, BMP, GFR #### [address] [address] Potassium [Moles/Vol] 3.4 mmol/L Low 3.5-5.1 [facility] ([place]) Comment on above: Performed By: #### A DIFF, ANEU, PRO, CBC, MG, BMP, GFR #### [address] [address] Sodium [Moles/Vol] 136 mmol/L Normal 136-145 [facility] ([place]) Comment on above: Performed By: #### A DIFF, ANEU, PRO, CBC, MG, BMP, GFR #### [address] [address] Urea nitrogen [Mass/Vol] 21 mg/dL High 7-18 [facility] ([place]) Comment on above: Performed By: #### A DIFF, ANEU, PRO, CBC, MG, BMP, GFR #### [address] [address] CBCon 06-03-2023 Erythrocyte distribution width (RBC) [Ratio] 16.0 % High 11.5-14.5 [facility] ([place]) Comment on above: Performed By: #### A REINA, PBNP, GFR, MDW, CBC, TROPHS, ADIFF, BMP #### [address] [address] Hematocrit (Bld) [Volume fraction] 36.4 % Low 37.0-47.0 [facility] ([place]) Comment on above: Performed By: #### A REINA, PBNP, GFR, MDW, CBC, TROPHS, ADIFF, BMP #### [address] [address] Hgb 11.9 G/dL Low 12.0-16.0 [facility] ([place]) Comment on above: Performed By: #### A REINA, PBNP, GFR, MDW, CBC, TROPHS, ADIFF, BMP #### [address] [address] MCH (RBC) [Entitic mass] 27.0 pg Normal 27.0-31.2 [facility] ([place]) Comment on above: Performed By: #### A REINA, PBNP, GFR, MDW, CBC, TROPHS, ADIFF, BMP #### [place] [address] MCHC 32.7 G/dL Low 33.0-37.0 [facility] ([place]) Comment on above: Performed By: #### A REINA, PBNP, GFR, MDW, CBC, TROPHS, ADIFF, BMP #### [place] [address] MCV (RBC) [Entitic vol] 82.7 fL Normal 80.0-94.0 [facility] ([place]) Comment on above: Performed By: #### A REINA, PBNP, GFR, MDW, CBC, TROPHS, ADIFF, BMP #### [place] [address] Platelet 308 10 3/mcL Normal 130-400 [facility] ([place]) Comment on above: Performed By: #### A REINA, PBNP, GFR, MDW, CBC, TROPHS, ADIFF, BMP #### [address] [address] Platelet mean volume (Bld) [Entitic vol] 7.5 fL Normal 7.4-10.4 [facility] ([place]) Comment on above: Performed By: #### A REINA, PBNP, GFR, MDW, CBC, TROPHS, ADIFF, BMP #### [place] [address] [place], [place] [address] RBC 4.41 10 6/mcL Normal 4.20-5.40 [facility] ([place] Comment on above: Performed By: #### A REINA, PBNP, GFR, MDW, CBC, TROPHS, ADIFF, BMP #### [place] [address] [place], [place] [address] WBC 7.1 10 3/mcL Normal 4.6-10.8 [facility] ([place]) Comment on above: Performed By: #### A REINA, PBNP, GFR, MDW, CBC, TROPHS, ADIFF, BMP #### [address] [address] LABORATORYOrdered By: SYSTEM SYSTEM on 06-03-2023 Troponin I.cardiac DL <= 0.01 ng/mL [Mass/Vol] 9.0 ng/L Invalid Interpretation Code 0.0 - 51.4 ng/L AO ADM SS Basophil, Absolute 0.0 103/mcL Invalid Interpretation Code 0.0 - 0.2 10^3/mcL AO Workflow SS Basophils/100 WBC (Bld) 0.3 % Invalid Interpretation Code 0.0 - 2.5 % AO Workflow SS Calcium [Mass/Vol] 8.4 mg/dL Invalid Interpretation Code 8.4 - 10.2 mg/dL AO ADM SS Chloride [Moles/Vol] 101 mmol/L Invalid Interpretation Code 98 - 107 mmol/L AO ADM SS CO2 [Moles/Vol] 28 mmol/L Invalid Interpretation Code 23 - 31 mmol/L AO ADM SS Creatinine [Mass/Vol] 0.81 mg/dL Invalid Interpretation Code 0.55 - 1.02 mg/dL AO ADM SS Electrolyte Balance 7.0 mEq/L Invalid Interpretation Code 4.0 - 15.0 mEq/L AO ADM SS Eosinophil, Absolute 0.3 103/mcL Invalid Interpretation Code 0.0 - 0.4 10^3/mcL AO Workflow SS Eosinophils/100 WBC (Bld) 3.7 % Invalid Interpretation Code 0.0 - 7.0 % AO Workflow SS Erythrocyte distribution width (RBC) [Ratio] 16.0 % Invalid Interpretation Code 11.5 - 14.5 % AO Workflow SS GFR/1.73 sq M.predicted among blacks MDRD (S/P/Bld) [Vol rate/Area] 85 ml/min/1.73sqm Invalid Interpretation Code AO Chemistry S Comment on above: Interpretive Data: GFR Population mean for , Non- Americans Ages 20-29 = 116 mL/min/1.73 sq.m. Ages 30-39 = 107 mL/min/1.73 sq.m. Ages 40-49 = 99 mL/min/1.73 sq.m. Ages 50-59 = 93 mL/min/1.73 sq.m. Ages 60-69 = 85 mL/min/1.73 sq.m. Ages 70+ = 75 mL/min/1.73 sq.m. Chronic Kidney Disease: Less than 60 mL/min/1.73 square meters End Stage Renal Disease: Less than 15 mL/min/1.73 square meters GFR/1.73 sq M.predicted among non-blacks MDRD (S/P/Bld) [Vol rate/Area] 70 ml/min/1.73sqm Invalid Interpretation Code AO Chemistry S Comment on above: Interpretive Data: GFR Population mean for , Non- Americans Ages 20-29 = 116 mL/min/1.73 sq.m. Ages 30-39 = 107 mL/min/1.73 sq.m. Ages 40-49 = 99 mL/min/1.73 sq.m. Ages 50-59 = 93 mL/min/1.73 sq.m. Ages 60-69 = 85 mL/min/1.73 sq.m. Ages 70+ = 75 mL/min/1.73 sq.m. Chronic Kidney Disease: Less than 60 mL/min/1.73 square meters End Stage Renal Disease: Less than 15 mL/min/1.73 square meters Glucose [Mass/Vol] 191 mg/dL Invalid Interpretation Code 80 - 115 mg/dL AO ADM SS Hematocrit (Bld) [Volume fraction] 36.4 % Invalid Interpretation Code 37.0 - 47.0 % AO Workflow SS Hemoglobin (Bld) [Mass/Vol] 11.9 G/dL Invalid Interpretation Code 12.0 - 16.0 G/dL AO Workflow SS Lymphocyte, Absolute 1.7 103/mcL Invalid Interpretation Code 0.8 - 3.9 10^3/mcL AO Workflow SS Lymphocytes/100 WBC (Bld) 24.2 % Invalid Interpretation Code 10.0 - 50.0 % AO Workflow SS MCH (RBC) [Entitic mass] 27.0 pg Invalid Interpretation Code 27.0 - 31.2 pg AO Workflow SS MCHC 32.7 G/dL Invalid Interpretation Code 33.0 - 37.0 G/dL AO Workflow SS MCV (RBC) [Entitic vol] 82.7 fL Invalid Interpretation Code 80.0 - 94.0 fL AO Workflow SS Monocyte distribution width Auto (Bld) [Entitic vol] 22.62 1 Invalid Interpretation Code 0.00 - 20.00 AO Workflow SS Comment on above: Result Comment: For adults in ED, MDW>20.0 may be associated with a higher risk of sepsis during the first 12hrs of hospital admission Monocyte, Absolute 0.4 103/mcL Invalid Interpretation Code 0.2 - 1.0 10^3/mcL AO Workflow SS Monocytes/100 WBC (Bld) 6.0 % Invalid Interpretation Code 1.7 - 13.0 % AO Workflow SS Natriuretic peptide.B prohormone N-Terminal [Mass/Vol] 353 pg/mL Invalid Interpretation Code 0 - 125 pg/mL AO ADM SS Comment on above: Interpretive Data: N T-proBNP results of less than 300 pg/mL effectively rules out acute congestive heart failure with 99% negative predictive value. Neutrophil, Absolute 4.7 103/mcL Invalid Interpretation Code 2.9 - 6.2 10^3/mcL AO Workflow SS Neutrophils/100 WBC (Bld) 65.8 % Invalid Interpretation Code 37.0 - 80.0 % AO Workflow SS Platelet mean volume (Bld) [Entitic vol] 7.5 fL Invalid Interpretation Code 7.4 - 10.4 fL AO Workflow SS Platelets (Bld) [#/Vol] 308 103/mcL Invalid Interpretation Code 130 - 400 10^3/mcL AO Workflow SS Potassium [Moles/Vol] 3.4 mmol/L Invalid Interpretation Code 3.5 - 5.1 mmol/L AO ADM SS RBC (Bld) [#/Vol] 4.41 106/mcL Invalid Interpretation Code 4.20 - 5.40 10^6/mcL AO Workflow SS Sodium [Moles/Vol] 136 mmol/L Invalid Interpretation Code 136 - 145 mmol/L AO ADM SS Troponin I.cardiac DL <= 0.01 ng/mL [Mass/Vol] 9.7 ng/L Invalid Interpretation Code 0.0 - 51.4 ng/L AO ADM SS Urea nitrogen [Mass/Vol] 21 mg/dL Invalid Interpretation Code 7 - 18 mg/dL AO ADM SS Urea nitrogen/Creatinine [Mass ratio] 26 ratio Invalid Interpretation Code 7 - 27 ratio AO ADM SS WBC (Bld) [#/Vol] 7.1 103/mcL Invalid Interpretation Code 4.6 - 10.8 10^3/mcL AO Workflow SS LABORATORYOrdered By: Dorota Gutierrez on 06-03-2023 INR Coag (PPP) [Relative time] 1.9 {INR} Invalid Interpretation Code AO [employer] SS Comment on above: Interpretive Data: Nicol brown [employer] (CHEST, 1992, 102:312S-25S) recommended therapeutic range for oral anticoagulant therapy is: LOW RISK: Prophylaxis of venous thrombosis INR: 2.0-3.0 Treatment of pulmonary embolism 2.0-3.0 Prevention of systemic embolism 2.0-3.0 HIGH RISK: Mechanical prosthetic valves 2.5-3.5 PT Coag (PPP) [Time] 22.2 s Invalid Interpretation Code 9.0 - 14.2 seconds AO [facility] SS MYCOon 06-03-2023 Mycoplasma IgG Negative Normal [facility] ([place]) Comment on above: Result Comment: INTE RPRETATION OF MYCOPLASMA IgG BY EIA: Negative: No detectable M. pneumoniae IgG antibody. Positive: Mycoplasma pneumoniae IgG antibody Detected. Equivocal: Equivocal for IgG antibodies to Mycoplasma pneumoniae. Suggest repeat testing in 10-14 days. Performed By: #### M YCO #### [address] [address] PBNPon 06-03-2023 Natriuretic peptide B (Bld) [Mass/Vol] 353 pg/mL High 0-125 [facility] ([place]) Comment on above: Result Comment: NT-p roBNP results of less than 300 pg/mL effectively rules out acute congestive heart failure with 99% negative predictive value. Performed By: #### A DIFF, ANEU, PRO, CBC, MG, BMP, GFR #### [address] [address] PROon 06-03-2023 PT Coag (PPP) [Time] 22.2 s High 9.0-14.2 [facility] ([place]) Comment on above: Performed By: #### P RO #### [address] [address] PT International Ratio 1.9 Normal [facility] ([place]) Comment on above: Result Comment: [employer] (CHEST, 1992, 102:312S-25S) recommended therapeutic range for oral anticoagulant therapy is: LOW RISK: Prophylaxis of venous thrombosis INR: 2.0-3.0 Treatment of pulmonary embolism 2.0-3.0 Prevention of systemic embolism 2.0-3.0 HIGH RISK: Mechanical prosthetic valves 2.5-3.5 Performed By: #### P RO #### [place] [address] [place], [place] [address] TROPHSon 06-03-2023 Troponin I High Sensitivity 9.0 ng/L Normal 0.0-51.4 [facility] ([place]) Comment on above: Performed By: #### A DIFF, ANEU, PRO, CBC, MG, BMP, GFR #### [place] [address] Troponin I High Sensitivity 9.7 ng/L Normal 0.0-51.4 [facility] ([place] Comment on above: Performed By: #### A DIFF, ANEU, PRO, CBC, MG, BMP, GFR #### [place] [address] XR CHEST 2 VIEWSon 3 XR CHEST 2 VIEWS ORIGINAL EXAMINATION: TWO XRAY VIEWS OF THE CHEST 06/03/2023 8:31 pm COMPARISON: Chest radiograph 05/31/2023, CTA chest 04/09/2022. HISTORY: ORDERING SYSTEM PROVIDED HISTORY: Reason for Exam: Chest Pain FINDINGS: Stable cardiomediastinal silhouette. No pleural effusion or pneumothorax. No focal consolidation. No acute osseous abnormality. Surgical clips project over the upper abdomen. IMPRESSION: No evidence of an acute cardiopulmonary process. I have reviewed the resident's preliminary report and agree with findings and impression. Interpreted by: Alex Dowling Preliminary Report By: Ricardo Lewis Electronically signed By Alex Dowling Dictated Date: 06/03/2023 8:33:45 PM Prelim Date: 06/03/2023 8:37:43 PM Sign Date: 06/03/2023 8:41:58 PM Ordering Provider: KUSUM Mejia [facility] ([place]) .Auto Diffon 06-01-2023 Basophil, Absolute 0.0 10 3/mcL Normal 0.0-0.2 [facility] ([place]) Comment on above: Performed By: #### A DIFF, ANEU, PRO, CBC, MG, BMP, GFR #### [address] [address] Basophils/100 WBC (Bld) 0.1 % Normal 0.0-2.5 [facility] ([place]) Comment on above: Performed By: #### A DIFF, ANEU, PRO, CBC, MG, BMP, GFR #### [address] [address] Eosinophil, Absolute 0.0 10 3/mcL Normal 0.0-0.4 [facility] ([place]) Comment on above: Performed By: #### A DIFF, ANEU, PRO, CBC, MG, BMP, GFR #### [address] [address] Eosinophils/100 WBC (Bld) 0.1 % Normal 0.0-7.0 [facility] ([place] Comment on above: Performed By: #### A DIFF, ANEU, PRO, CBC, MG, BMP, GFR #### [address] [address] Lymphocyte, Absolute 1.6 10 3/mcL Normal 0.8-3.9 [facility] ([place]) Comment on above: Performed By: #### A DIFF, ANEU, PRO, CBC, MG, BMP, GFR #### [address] [address] Lymphocytes/100 WBC (Bld) 15.1 % Normal 10.0-50.0 [facility] ([place]) Comment on above: Performed By: #### A DIFF, ANEU, PRO, CBC, MG, BMP, GFR #### [address] [address] Monocyte, Absolute 0.6 10 3/mcL Normal 0.2-1.0 [facility] ([place]) Comment on above: Performed By: #### A DIFF, ANEU, PRO, CBC, MG, BMP, GFR #### [address] [address] Monocytes/100 WBC (Bld) 5.9 % Normal 1.7-13.0 [facility] ([place]) Comment on above: Performed By: #### A DIFF, ANEU, PRO, CBC, MG, BMP, GFR #### [address] [address] Neutrophils/100 WBC (Bld) 78.8 % Normal 37.0-80.0 [facility] ([place]) Comment on above: Performed By: #### A DIFF, ANEU, PRO, CBC, MG, BMP, GFR #### [address] [address] .GFRon 06-01-2023 GFR 68 ml/min/1.73sqm Normal [facility] ([place]) Comment on above: Result Comment: GFR Population mean for , Non- Americans Ages 20-29 = 116 mL/min/1.73 sq.m. Ages 30-39 = 107 mL/min/1.73 sq.m. Ages 40-49 = 99 mL/min/1.73 sq.m. Ages 50-59 = 93 mL/min/1.73 sq.m. Ages 60-69 = 85 mL/min/1.73 sq.m. Ages 70+ = 75 mL/min/1.73 sq.m. Chronic Kidney Disease: Less than 60 mL/min/1.73 square meters End Stage Renal Disease: Less than 15 mL/min/1.73 square meters Performed By: #### A DIFF, ANEU, PRO, CBC, MG, BMP, GFR #### [address] [address] GFR Non- 56 ml/min/1.73sqm Normal [facility] ([place]) Comment on above: Result Comment: GFR Population mean for , Non- Americans Ages 20-29 = 116 mL/min/1.73 sq.m. Ages 30-39 = 107 mL/min/1.73 sq.m. Ages 40-49 = 99 mL/min/1.73 sq.m. Ages 50-59 = 93 mL/min/1.73 sq.m. Ages 60-69 = 85 mL/min/1.73 sq.m. Ages 70+ = 75 mL/min/1.73 sq.m. Chronic Kidney Disease: Less than 60 mL/min/1.73 square meters End Stage Renal Disease: Less than 15 mL/min/1.73 square meters Performed By: #### A DIFF, ANEU, PRO, CBC, MG, BMP, GFR #### [address] [address] .NEUABSon 06-01-2023 Neutrophil, Absolute 8.5 10 3/mcL High 2.9-6.2 [facility] ([place]) Comment on above: Performed By: #### A DIFF, ANEU, PRO, CBC, MG, BMP, GFR #### [address] [address] BMPon 06-01-2023 BUN/Creatinine Ratio 22 ratio Normal 7-27 [facility] ([place]) Comment on above: Performed By: #### A DIFF, ANEU, PRO, CBC, MG, BMP, GFR #### [address] [address] Calcium [Mass/Vol] 8.7 mg/dL Normal 8.4-10.2 [facility] ([place]) Comment on above: Performed By: #### A DIFF, ANEU, PRO, CBC, MG, BMP, GFR #### [address] [address] Chloride [Moles/Vol] 102 mmol/L Normal 98-107 [facility] ([place]) Comment on above: Performed By: #### A DIFF, ANEU, PRO, CBC, MG, BMP, GFR #### [address] [address] CO2 [Moles/Vol] 31 mmol/L Normal 23-31 [facility] ([place]) Comment on above: Performed By: #### A DIFF, ANEU, PRO, CBC, MG, BMP, GFR #### [address] [address] Creatinine [Mass/Vol] 0.98 mg/dL Normal 0.55-1.02 [facility] ([place]) Comment on above: Performed By: #### A DIFF, ANEU, PRO, CBC, MG, BMP, GFR #### [address] [address] Electrolyte Balance 9.0 mEq/L Normal 4.0-15.0 [facility] ([place]) Comment on above: Performed By: #### A DIFF, ANEU, PRO, CBC, MG, BMP, GFR #### [place] [id number] Glucose [Mass/Vol] 119 mg/dL High 80-115 [facility] ([place]) Comment on above: Performed By: #### A DIFF, ANEU, PRO, CBC, MG, BMP, GFR #### [address] [address] Potassium [Moles/Vol] 4.0 mmol/L Normal 3.5-5.1 [facility] ([place]) Comment on above: Performed By: #### A DIFF, ANEU, PRO, CBC, MG, BMP, GFR #### [address] [address] Sodium [Moles/Vol] 142 mmol/L Normal 136-145 [facility] ([place]) Comment on above: Performed By: #### A DIFF, ANEU, PRO, CBC, MG, BMP, GFR #### [address] [address] Urea nitrogen [Mass/Vol] 22 mg/dL High 7-18 [facility] ([place]) Comment on above: Performed By: #### A DIFF, ANEU, PRO, CBC, MG, BMP, GFR #### [address] [address] CBCon 06-01-2023 Erythrocyte distribution width (RBC) [Ratio] 16.1 % High 11.5-14.5 [facility] ([place]) Comment on above: Performed By: #### A DIFF, ANEU, PRO, CBC, MG, BMP, GFR #### [address] [address] Hematocrit (Bld) [Volume fraction] 33.3 % Low 37.0-47.0 [facility] ([place]) Comment on above: Performed By: #### A DIFF, ANEU, PRO, CBC, MG, BMP, GFR #### [place] [address] Hgb 11.0 G/dL Low 12.0-16.0 [facility] ([place]) Comment on above: Performed By: #### A DIFF, ANEU, PRO, CBC, MG, BMP, GFR #### [place] [address] MCH (RBC) [Entitic mass] 27.1 pg Normal 27.0-31.2 [facility] ([place] Comment on above: Performed By: #### A DIFF, ANEU, PRO, CBC, MG, BMP, GFR #### [place] [address] MCHC 33.0 G/dL Normal 33.0-37.0 [facility] ([place]) Comment on above: Performed By: #### A DIFF, ANEU, PRO, CBC, MG, BMP, GFR #### [place] [address] MCV (RBC) [Entitic vol] 82.0 fL Normal 80.0-94.0 [facility] ([place]) Comment on above: Performed By: #### A DIFF, ANEU, PRO, CBC, MG, BMP, GFR #### [place] [address] Platelet 326 10 3/mcL Normal 130-400 [facility] ([place]) Comment on above: Performed By: #### A DIFF, ANEU, PRO, CBC, MG, BMP, GFR #### [place] [address] Platelet mean volume (Bld) [Entitic vol] 7.8 fL Normal 7.4-10.4 [facility] ([place]) Comment on above: Performed By: #### A DIFF, ANEU, PRO, CBC, MG, BMP, GFR #### [place] [address] RBC 4.05 10 6/mcL Low 4.20-5.40 [facility] ([place] Comment on above: Performed By: #### A DIFF, ANEU, PRO, CBC, MG, BMP, GFR #### [address] [address] WBC 10.8 10 3/mcL Normal 4.6-10.8 [facility] [place] Comment on above: Performed By: #### A DIFF, ANEU, PRO, CBC, MG, BMP, GFR #### [place] [address] [place] [address] LABORATORYOrdered By: Nimisha Bedoya on 06-01-2023 Blood Glucose Testing Reason Routine (06/01/23 11:23 AM) [facility] Glucose [Mass/Vol] 165 mg/dL Invalid Interpretation Code 82 - 115 mg/dL [facility] Blood Glucose Testing Reason Routine (06/01/23 7:41 AM) [facility] Glucose [Mass/Vol] 142 mg/dL Invalid Interpretation Code 82 - 115 mg/dL [facility] LABORATORYOrdered By: SYSTEM SYSTEM on 06-01-2023 Basophil, Absolute 0.0 103/mcL Invalid Interpretation Code 0.0 - 0.2 10^3/mcL AO Workflow SS Basophils/100 WBC (Bld) 0.1 % Invalid Interpretation Code 0.0 - 2.5 % AO Workflow SS Calcium [Mass/Vol] 8.7 mg/dL Invalid Interpretation Code 8.4 - 10.2 mg/dL AO ADM SS Chloride [Moles/Vol] 102 mmol/L Invalid Interpretation Code 98 - 107 mmol/L AO ADM SS CO2 [Moles/Vol] 31 mmol/L Invalid Interpretation Code 23 - 31 mmol/L AO ADM SS Creatinine [Mass/Vol] 0.98 mg/dL Invalid Interpretation Code 0.55 - 1.02 mg/dL AO ADM SS Electrolyte Balance 9.0 mEq/L Invalid Interpretation Code 4.0 - 15.0 mEq/L AO ADM SS Eosinophil, Absolute 0.0 103/mcL Invalid Interpretation Code 0.0 - 0.4 10^3/mcL AO Workflow SS Eosinophils/100 WBC (Bld) 0.1 % Invalid Interpretation Code 0.0 - 7.0 % AO Workflow SS Erythrocyte distribution width (RBC) [Ratio] 16.1 % Invalid Interpretation Code 11.5 - 14.5 % AO Workflow SS GFR/1.73 sq M.predicted among blacks MDRD (S/P/Bld) [Vol rate/Area] 68 ml/min/1.73sqm Invalid Interpretation Code AO Chemistry S Comment on above: Interpretive Data: GFR Population mean for , Non- Americans Ages 20-29 = 116 mL/min/1.73 sq.m. Ages 30-39 = 107 mL/min/1.73 sq.m. Ages 40-49 = 99 mL/min/1.73 sq.m. Ages 50-59 = 93 mL/min/1.73 sq.m. Ages 60-69 = 85 mL/min/1.73 sq.m. Ages 70+ = 75 mL/min/1.73 sq.m. Chronic Kidney Disease: Less than 60 mL/min/1.73 square meters End Stage Renal Disease: Less than 15 mL/min/1.73 square meters GFR/1.73 sq M.predicted among non-blacks MDRD (S/P/Bld) [Vol rate/Area] 56 ml/min/1.73sqm Invalid Interpretation Code AO Chemistry S Comment on above: Interpretive Data: GFR Population mean for , Non- Americans Ages 20-29 = 116 mL/min/1.73 sq.m. Ages 30-39 = 107 mL/min/1.73 sq.m. Ages 40-49 = 99 mL/min/1.73 sq.m. Ages 50-59 = 93 mL/min/1.73 sq.m. Ages 60-69 = 85 mL/min/1.73 sq.m. Ages 70+ = 75 mL/min/1.73 sq.m. Chronic Kidney Disease: Less than 60 mL/min/1.73 square meters End Stage Renal Disease: Less than 15 mL/min/1.73 square meters Glucose [Mass/Vol] 119 mg/dL Invalid Interpretation Code 80 - 115 mg/dL AO ADM SS Hematocrit (Bld) [Volume fraction] 33.3 % Invalid Interpretation Code 37.0 - 47.0 % AO Workflow SS Hemoglobin (Bld) [Mass/Vol] 11.0 G/dL Invalid Interpretation Code 12.0 - 16.0 G/dL AO Workflow SS Lymphocyte, Absolute 1.6 103/mcL Invalid Interpretation Code 0.8 - 3.9 10^3/mcL AO Workflow SS Lymphocytes/100 WBC (Bld) 15.1 % Invalid Interpretation Code 10.0 - 50.0 % AO Workflow SS Magnesium [Mass/Vol] 1.5 mg/dL Invalid Interpretation Code 1.8 - 2.4 mg/dL AO ADM SS MCH (RBC) [Entitic mass] 27.1 pg Invalid Interpretation Code 27.0 - 31.2 pg AO Workflow SS MCHC 33.0 G/dL Invalid Interpretation Code 33.0 - 37.0 G/dL AO Workflow SS MCV (RBC) [Entitic vol] 82.0 fL Invalid Interpretation Code 80.0 - 94.0 fL AO Workflow SS Monocyte, Absolute 0.6 103/mcL Invalid Interpretation Code 0.2 - 1.0 10^3/mcL AO Workflow SS Monocytes/100 WBC (Bld) 5.9 % Invalid Interpretation Code 1.7 - 13.0 % AO Workflow SS Neutrophil, Absolute 8.5 103/mcL Invalid Interpretation Code 2.9 - 6.2 10^3/mcL AO Workflow SS Neutrophils/100 WBC (Bld) 78.8 % Invalid Interpretation Code 37.0 - 80.0 % AO Workflow SS Platelet mean volume (Bld) [Entitic vol] 7.8 fL Invalid Interpretation Code 7.4 - 10.4 fL AO Workflow SS Platelets (Bld) [#/Vol] 326 103/mcL Invalid Interpretation Code 130 - 400 10^3/mcL AO Workflow SS Potassium [Moles/Vol] 4.0 mmol/L Invalid Interpretation Code 3.5 - 5.1 mmol/L AO ADM SS RBC (Bld) [#/Vol] 4.05 106/mcL Invalid Interpretation Code 4.20 - 5.40 10^6/mcL AO Workflow SS Sodium [Moles/Vol] 142 mmol/L Invalid Interpretation Code 136 - 145 mmol/L AO ADM SS Urea nitrogen [Mass/Vol] 22 mg/dL Invalid Interpretation Code 7 - 18 mg/dL AO ADM SS Urea nitrogen/Creatinine [Mass ratio] 22 ratio Invalid Interpretation Code 7 - 27 ratio AO ADM SS WBC (Bld) [#/Vol] 10.8 103/mcL Invalid Interpretation Code 4.6 - 10.8 10^3/mcL AO Workflow SS LABORATORYOrdered By: Niurka Oliveros on 06-01-2023 INR Coag (PPP) [Relative time] 2.7 {INR} Invalid Interpretation Code AO HemoHub SS Comment on above: Interpretive Data: [employer] (CHEST, 1991, 102:312S-25S) recommended therapeutic range for oral anticoagulant therapy is: LOW RISK: Prophylaxis of venous thrombosis INR: 2.0-3.0 Treatment of pulmonary embolism 2.0-3.0 Prevention of systemic embolism 2.0-3.0 HIGH RISK: Mechanical prosthetic valves 2.5-3.5 PT Coag (PPP) [Time] 31.4 s Invalid Interpretation Code 9.0 - 14.2 seconds AO HemoHub SS MGon 06-01-2023 Magnesium [Mass/Vol] 1.5 mg/dL Low 1.8-2.4 [facility] ([place]) Comment on above: Performed By: #### A DIFF, ANEU, PRO, CBC, MG, BMP, GFR #### [address] [address] MYCOon 06-01-2023 Mycoplasma IgM Negative Normal [facility] ([place]) Comment on above: Result Comment: INTE RPRETATION OF MYCOPLASMA IgM: Negative: IgM to M. pneumoniae Absent, or at levels below the assay limit of detection. Positive: IgM to M. pneumoniae Present. Invalid: Test results are invalid due to invalid internal control. Assay was performed in duplicate. Repeat testing is suggested if clinically indicated. Performed By: #### M YCO #### [address] [address] PROon 06-01-2023 PT Coag (PPP) [Time] 31.4 s High 9.0-14.2 [facility] ([place]) Comment on above: Performed By: #### A DIFF, ANEU, PRO, CBC, MG, BMP, GFR #### [address] [address] PT International Ratio 2.7 Normal [facility] ([place]) Comment on above: Result Comment: [employer] (CHEST, 1991, 102:312S-25S) recommended therapeutic range for oral anticoagulant therapy is: LOW RISK: Prophylaxis of venous thrombosis INR: 2.0-3.0 Treatment of pulmonary embolism 2.0-3.0 Prevention of systemic embolism 2.0-3.0 HIGH RISK: Mechanical prosthetic valves 2.5-3.5 Performed By: #### A DIFF, ANEU, PRO, CBC, MG, BMP, GFR #### [address] [address] .Auto Diffon 05-31-2023 Basophil, Absolute 0.0 10 3/mcL Normal 0.0-0.2 [facility] ([place]) Comment on above: Performed By: #### A DIFF, ANEU, PRO, CBC, MG, BMP, GFR #### [address] [address] Basophils/100 WBC (Bld) 0.4 % Normal 0.0-2.5 [facility] ([place]) Comment on above: Performed By: #### A DIFF, ANEU, PRO, CBC, MG, BMP, GFR #### [address] [address] Eosinophil, Absolute 0.2 10 3/mcL Normal 0.0-0.4 [facility] ([place]) Comment on above: Performed By: #### A DIFF, ANEU, PRO, CBC, MG, BMP, GFR #### [address] [address] Eosinophils/100 WBC (Bld) 2.7 % Normal 0.0-7.0 [facility] ([place]) Comment on above: Performed By: #### A DIFF, ANEU, PRO, CBC, MG, BMP, GFR #### [address] [address] Lymphocyte, Absolute 2.6 10 3/mcL Normal 0.8-3.9 [facility] ([place]) Comment on above: Performed By: #### A DIFF, ANEU, PRO, CBC, MG, BMP, GFR #### [address] [address] Lymphocytes/100 WBC (Bld) 32.8 % Normal 10.0-50.0 [facility] ([place]) Comment on above: Performed By: #### A DIFF, ANEU, PRO, CBC, MG, BMP, GFR #### [address] [address] Monocyte, Absolute 0.5 10 3/mcL Normal 0.2-1.0 [facility] ([place] Comment on above: Performed By: #### A DIFF, ANEU, PRO, CBC, MG, BMP, GFR #### [address] [address] Monocytes/100 WBC (Bld) 6.1 % Normal 1.7-13.0 [facility] ([place]) Comment on above: Performed By: #### A DIFF, ANEU, PRO, CBC, MG, BMP, GFR #### [address] [address] Neutrophils/100 WBC (Bld) 58.0 % Normal 37.0-80.0 [facility] ([place] Comment on above: Performed By: #### A DIFF, ANEU, PRO, CBC, MG, BMP, GFR #### [address] [address] .GFRon 05-31-2023 GFR Non- 78 ml/min/1.73sqm Normal [facility] ([place]) Comment on above: Result Comment: GFR Population mean for , Non- Americans Ages 20-29 = 116 mL/min/1.73 sq.m. Ages 30-39 = 107 mL/min/1.73 sq.m. Ages 40-49 = 99 mL/min/1.73 sq.m. Ages 50-59 = 93 mL/min/1.73 sq.m. Ages 60-69 = 85 mL/min/1.73 sq.m. Ages 70+ = 75 mL/min/1.73 sq.m. Chronic Kidney Disease: Less than 60 mL/min/1.73 square meters End Stage Renal Disease: Less than 15 mL/min/1.73 square meters Performed By: #### A DIFF, ANEU, PRO, CBC, MG, BMP, GFR #### [address] [address] GFR 95 ml/min/1.73sqm Normal [facility] ([place]) Comment on above: Result Comment: GFR Population mean for , Non- Americans Ages 20-29 = 116 mL/min/1.73 sq.m. Ages 30-39 = 107 mL/min/1.73 sq.m. Ages 40-49 = 99 mL/min/1.73 sq.m. Ages 50-59 = 93 mL/min/1.73 sq.m. Ages 60-69 = 85 mL/min/1.73 sq.m. Ages 70+ = 75 mL/min/1.73 sq.m. Chronic Kidney Disease: Less than 60 mL/min/1.73 square meters End Stage Renal Disease: Less than 15 mL/min/1.73 square meters Performed By: #### A DIFF, ANEU, PRO, CBC, MG, BMP, GFR #### [address] [address] .MDWon 05-31-2023 Monocyte Distribution Width 16.62 Normal 0.00-20.00 [facility] ([place]) Comment on above: Result Comment: For ED adult patients suspected of sepsis, MDW<=20.0 does not rule out sepsis or risk of sepsis Performed By: #### A DIFF, ANEU, PRO, CBC, MG, BMP, GFR #### [place] [address] .NEUABSon 05-31-2023 Neutrophil, Absolute 4.6 10 3/mcL Normal 2.9-6.2 [facility] ([place]) Comment on above: Performed By: #### A DIFF, ANEU, PRO, CBC, MG, BMP, GFR #### [address] [address] BMPon 05-31-2023 BUN/Creatinine Ratio 16 ratio Normal 7-27 [facility] ([place]) Comment on above: Performed By: #### A DIFF, ANEU, PRO, CBC, MG, BMP, GFR #### [address] [address] Calcium [Mass/Vol] 8.9 mg/dL Normal 8.4-10.2 [facility] ([place]) Comment on above: Performed By: #### A DIFF, ANEU, PRO, CBC, MG, BMP, GFR #### [place] [id number] Chloride [Moles/Vol] 104 mmol/L Normal 98-107 [facility] ([place]) Comment on above: Performed By: #### A DIFF, ANEU, PRO, CBC, MG, BMP, GFR #### [place] [id number] CO2 [Moles/Vol] 30 mmol/L Normal 23-31 [facility] ([place]) Comment on above: Performed By: #### A DIFF, ANEU, PRO, CBC, MG, BMP, GFR #### [place] [id number] Creatinine [Mass/Vol] 0.74 mg/dL Normal 0.55-1.02 [facility] ([place]) Comment on above: Performed By: #### A DIFF, ANEU, PRO, CBC, MG, BMP, GFR #### [place] [address] Electrolyte Balance 7.0 mEq/L Normal 4.0-15.0 [facility] ([place]) Comment on above: Performed By: #### A DIFF, ANEU, PRO, CBC, MG, BMP, GFR #### [place] [address] Glucose [Mass/Vol] 134 mg/dL High 80-115 [facility] ([place]) Comment on above: Performed By: #### A DIFF, ANEU, PRO, CBC, MG, BMP, GFR #### [place] [address] Potassium [Moles/Vol] 3.7 mmol/L Normal 3.5-5.1 [facility] ([place]) Comment on above: Performed By: #### A DIFF, ANEU, PRO, CBC, MG, BMP, GFR #### [place] [address] Sodium [Moles/Vol] 141 mmol/L Normal 136-145 [facility] ([place]) Comment on above: Performed By: #### A DIFF, ANEU, PRO, CBC, MG, BMP, GFR #### [place] [address] Urea nitrogen [Mass/Vol] 12 mg/dL Normal 7-18 [facility] ([place]) Comment on above: Performed By: #### A DIFF, ANEU, PRO, CBC, MG, BMP, GFR #### [place] [address] CBCon 05-31-2023 Erythrocyte distribution width (RBC) [Ratio] 15.9 % High 11.5-14.5 [facility] ([place]) Comment on above: Performed By: #### A DIFF, ANEU, PRO, CBC, MG, BMP, GFR #### [place] [address] Hematocrit (Bld) [Volume fraction] 37.6 % Normal 37.0-47.0 [facility] ([place] Comment on above: Performed By: #### A DIFF, ANEU, PRO, CBC, MG, BMP, GFR #### [place] [address] Hgb 12.4 G/dL Normal 12.0-16.0 [facility] ([place] Comment on above: Performed By: #### A DIFF, ANEU, PRO, CBC, MG, BMP, GFR #### [place] [address] MCH (RBC) [Entitic mass] 27.2 pg Normal 27.0-31.2 [facility] ([place] Comment on above: Performed By: #### A DIFF, ANEU, PRO, CBC, MG, BMP, GFR #### [place] [address] MCHC 32.9 G/dL Low 33.0-37.0 [facility] ([place] Comment on above: Performed By: #### A DIFF, ANEU, PRO, CBC, MG, BMP, GFR #### [place] [address] MCV (RBC) [Entitic vol] 82.7 fL Normal 80.0-94.0 [facility] ([place] Comment on above: Performed By: #### A DIFF, ANEU, PRO, CBC, MG, BMP, GFR #### [place] [address] [place] [address] Platelet 318 10 3/mcL Normal 130-400 [facility] ([place]) Comment on above: Performed By: #### A DIFF, ANEU, PRO, CBC, MG, BMP, GFR #### [place] [address] [place] [address] Platelet mean volume (Bld) [Entitic vol] 7.5 fL Normal 7.4-10.4 [facility] ([place]) Comment on above: Performed By: #### A DIFF, ANEU, PRO, CBC, MG, BMP, GFR #### [place] [address] RBC 4.55 10 6/mcL Normal 4.20-5.40 [facility] [place] Comment on above: Performed By: #### A DIFF, ANEU, PRO, CBC, MG, BMP, GFR #### [place] [address] WBC 7.9 10 3/mcL Normal 4.6-10.8 [facility] ([place]) Comment on above: Performed By: #### A DIFF, ANEU, PRO, CBC, MG, BMP, GFR #### [place] [address] LABORATORYOrdered By: Odilia Iraheta on 05-31-2023 Blood Glucose Testing Reason Routine (05/31/23 9:22 PM) [facility] Glucose [Mass/Vol] 261 mg/dL Invalid Interpretation Code 82 - 115 mg/dL [facility] LABORATORYOrdered By: Devonte Ellsworth on 05-31-2023 Adenovirus DNA IRENE+non-probe Ql (Nph) Not Detected *NA* (05/31/23 12:33 PM) Invalid Interpretation Code Not Detected Auto Viro/Sero SS B. parapertussis [id number] DNA IRENE+non-probe Ql (Nph) Not Detected *NA* (05/31/23 12:33 PM) Invalid Interpretation Code Not Detected AH Auto Viro/Sero SS B. pertussis toxin promoter region IRENE+non-probe Ql (Nph) Not Detected *NA* (05/31/23 12:33 PM) Invalid Interpretation Code Not Detected AH Auto Viro/Sero SS C. pneumoniae DNA IRENE+non-probe Ql (Nph) Not Detected *NA* (05/31/23 12:33 PM) Invalid Interpretation Code Not Detected AH Auto Viro/Sero SS FLUAV RNA IRENE+non-probe Ql (Nph) Not Detected *NA* (05/31/23 12:33 PM) Invalid Interpretation Code Not Detected AH Auto Viro/Sero SS FLUBV RNA IRENE+non-probe Ql (Nph) Not Detected *NA* (05/31/23 12:33 PM) Invalid Interpretation Code Not Detected AH Auto Viro/Sero SS hMPV RNA IRENE+non-probe Ql (Nph) Not Detected *NA* (05/31/23 12:33 PM) Invalid Interpretation Code Not Detected AH Auto Viro/Sero SS M. pneumoniae DNA IRENE+non-probe Ql (Nph) Not Detected *NA* (05/31/23 12:33 PM) Invalid Interpretation Code Not Detected AH Auto Viro/Sero SS Parainfluenza virus 1 RNA IRENE+non-probe Ql (Nph) Not Detected *NA* (05/31/23 12:33 PM) Invalid Interpretation Code Not Detected AH Auto Viro/Sero SS Parainfluenza virus 2 RNA IRENE+non-probe Ql (Nph) Not Detected *NA* (05/31/23 12:33 PM) Invalid Interpretation Code Not Detected AH Auto Viro/Sero SS Parainfluenza virus 3 RNA IRENE+non-probe Ql (Nph) Not Detected *NA* (05/31/23 12:33 PM) Invalid Interpretation Code Not Detected AH Auto Viro/Sero SS Parainfluenza virus 4 RNA IRENE+non-probe Ql (Nph) Not Detected *NA* (05/31/23 12:33 PM) Invalid Interpretation Code Not Detected AH Auto Viro/Sero SS Rhinovirus+Enterovirus RNA IRENE+non-probe Ql (Nph) Detected *ABN* (05/31/23 12:33 PM) Invalid Interpretation Code Not Detected AH Auto Viro/Sero SS RSV RNA IRENE+non-probe Ql (Nph) Not Detected *NA* (05/31/23 12:33 PM) Invalid Interpretation Code Not Detected AH Auto Viro/Sero SS SARS-CoV-2 (COVID-19) RNA IRENE+probe Ql (Resp) Not Detected 3 *NA* (05/31/23 12:33 PM) Invalid Interpretation Code Not Detected AH Auto Viro/Sero SS Comment on above: Interpretive Data: T his test is being used under the FDA EUA procedure. This assay has been validated in the [facility] for use with nasopharyngeal specimens in [facility]. If a non-validated specimen or test collection method was used, please interpret the results with caution, especially if the test result is negative. A positive test result for COVID-19 indicates that RNA from SARS-CoV-2 was detected, and the patient is infected with the virus and presumed to be contagious. Laboratory test results should always be considered in the context of clinical observations and epidemiological data in making a final diagnosis and patient management decisions. Patient management should follow current CDC guidelines. A negative test result for this test means that SARS-CoV-2 RNA was not present in the specimen above the limit of detection. However, a negative result does not rule out COVID-19 and should not be used as the sole basis for treatment or patient management decisions. A negative result does not exclude the possibility of COVID-19. When diagnostic testing is negative, the possibility of a false negative result should be considered in the context of a patient's recent exposures and the presence of clinical signs and symptoms consistent with COVID-19. The possibility of a false negative result should especially be considered if the patient s recent exposures or clinical presentation indicate that COVID-19 is likely, and diagnostic tests for other causes of illness (e.g., other respiratory illness) are negative. If COVID-19 is still suspected based on exposure history together with other clinical findings, re-testing should be considered by healthcare providers in consultation with public health authorities. LABORATORYOrdered By: Niurka Oliveros on 05-31-2023 INR Coag (PPP) [Relative time] 2.1 {INR} Invalid Interpretation Code AO HemoHub SS Comment on above: Interpretive Data: [employer] (CHEST, 1991, 102:312S-25S) recommended therapeutic range for oral anticoagulant therapy is: LOW RISK: Prophylaxis of venous thrombosis INR: 2.0-3.0 Treatment of pulmonary embolism 2.0-3.0 Prevention of systemic embolism 2.0-3.0 HIGH RISK: Mechanical prosthetic valves 2.5-3.5 PT Coag (PPP) [Time] 24.5 s Invalid Interpretation Code 9.0 - 14.2 seconds AO [facility] SS LABORATORYOrdered By: SYSTEM SYSTEM on 05-31-2023 Basophil, Absolute 0.0 103/mcL Invalid Interpretation Code 0.0 - 0.2 10^3/mcL AO Workflow SS Basophils/100 WBC (Bld) 0.4 % Invalid Interpretation Code 0.0 - 2.5 % AO Workflow SS Calcium [Mass/Vol] 8.9 mg/dL Invalid Interpretation Code 8.4 - 10.2 mg/dL AO ADM SS Chloride [Moles/Vol] 104 mmol/L Invalid Interpretation Code 98 - 107 mmol/L AO ADM SS CO2 [Moles/Vol] 30 mmol/L Invalid Interpretation Code 23 - 31 mmol/L AO ADM SS Creatinine [Mass/Vol] 0.74 mg/dL Invalid Interpretation Code 0.55 - 1.02 mg/dL AO ADM SS Electrolyte Balance 7.0 mEq/L Invalid Interpretation Code 4.0 - 15.0 mEq/L AO ADM SS Eosinophil, Absolute 0.2 103/mcL Invalid Interpretation Code 0.0 - 0.4 10^3/mcL AO Workflow SS Eosinophils/100 WBC (Bld) 2.7 % Invalid Interpretation Code 0.0 - 7.0 % AO Workflow SS Erythrocyte distribution width (RBC) [Ratio] 15.9 % Invalid Interpretation Code 11.5 - 14.5 % AO Workflow SS GFR/1.73 sq M.predicted among blacks MDRD (S/P/Bld) [Vol rate/Area] 95 ml/min/1.73sqm Invalid Interpretation Code AO Chemistry S Comment on above: Interpretive Data: GFR Population mean for , Non- Americans Ages 20-29 = 116 mL/min/1.73 sq.m. Ages 30-39 = 107 mL/min/1.73 sq.m. Ages 40-49 = 99 mL/min/1.73 sq.m. Ages 50-59 = 93 mL/min/1.73 sq.m. Ages 60-69 = 85 mL/min/1.73 sq.m. Ages 70+ = 75 mL/min/1.73 sq.m. Chronic Kidney Disease: Less than 60 mL/min/1.73 square meters End Stage Renal Disease: Less than 15 mL/min/1.73 square meters GFR/1.73 sq M.predicted among non-blacks MDRD (S/P/Bld) [Vol rate/Area] 78 ml/min/1.73sqm Invalid Interpretation Code AO Chemistry S Comment on above: Interpretive Data: GFR Population mean for , Non- Americans Ages 20-29 = 116 mL/min/1.73 sq.m. Ages 30-39 = 107 mL/min/1.73 sq.m. Ages 40-49 = 99 mL/min/1.73 sq.m. Ages 50-59 = 93 mL/min/1.73 sq.m. Ages 60-69 = 85 mL/min/1.73 sq.m. Ages 70+ = 75 mL/min/1.73 sq.m. Chronic Kidney Disease: Less than 60 mL/min/1.73 square meters End Stage Renal Disease: Less than 15 mL/min/1.73 square meters Glucose [Mass/Vol] 134 mg/dL Invalid Interpretation Code 80 - 115 mg/dL AO ADM SS Hematocrit (Bld) [Volume fraction] 37.6 % Invalid Interpretation Code 37.0 - 47.0 % AO Workflow SS Hemoglobin (Bld) [Mass/Vol] 12.4 G/dL Invalid Interpretation Code 12.0 - 16.0 G/dL AO Workflow SS Lymphocyte, Absolute 2.6 103/mcL Invalid Interpretation Code 0.8 - 3.9 10^3/mcL AO Workflow SS Lymphocytes/100 WBC (Bld) 32.8 % Invalid Interpretation Code 10.0 - 50.0 % AO Workflow SS MCH (RBC) [Entitic mass] 27.2 pg Invalid Interpretation Code 27.0 - 31.2 pg AO Workflow SS MCHC 32.9 G/dL Invalid Interpretation Code 33.0 - 37.0 G/dL AO Workflow SS MCV (RBC) [Entitic vol] 82.7 fL Invalid Interpretation Code 80.0 - 94.0 fL AO Workflow SS Monocyte distribution width Auto (Bld) [Entitic vol] 16.62 1 Invalid Interpretation Code 0.00 - 20.00 AO Workflow SS Comment on above: Result Comment: For ED adult patients suspected of sepsis, MDW<=20.0 does not rule out sepsis or risk of sepsis Monocyte, Absolute 0.5 103/mcL Invalid Interpretation Code 0.2 - 1.0 10^3/mcL AO Workflow SS Monocytes/100 WBC (Bld) 6.1 % Invalid Interpretation Code 1.7 - 13.0 % AO Workflow SS Natriuretic peptide.B prohormone N-Terminal [Mass/Vol] 323 pg/mL Invalid Interpretation Code 0 - 125 pg/mL AO ADM SS Comment on above: Interpretive Data: N T-proBNP results of less than 300 pg/mL effectively rules out acute congestive heart failure with 99% negative predictive value. Neutrophil, Absolute 4.6 103/mcL Invalid Interpretation Code 2.9 - 6.2 10^3/mcL AO Workflow SS Neutrophils/100 WBC (Bld) 58.0 % Invalid Interpretation Code 37.0 - 80.0 % AO Workflow SS Platelet mean volume (Bld) [Entitic vol] 7.5 fL Invalid Interpretation Code 7.4 - 10.4 fL AO Workflow SS Platelets (Bld) [#/Vol] 318 103/mcL Invalid Interpretation Code 130 - 400 10^3/mcL AO Workflow SS Potassium [Moles/Vol] 3.7 mmol/L Invalid Interpretation Code 3.5 - 5.1 mmol/L AO ADM SS RBC (Bld) [#/Vol] 4.55 106/mcL Invalid Interpretation Code 4.20 - 5.40 10^6/mcL AO Workflow SS Sodium [Moles/Vol] 141 mmol/L Invalid Interpretation Code 136 - 145 mmol/L AO ADM SS Troponin I.cardiac DL <= 0.01 ng/mL [Mass/Vol] 18.6 ng/L Invalid Interpretation Code 0.0 - 51.4 ng/L AO ADM SS Urea nitrogen [Mass/Vol] 12 mg/dL Invalid Interpretation Code 7 - 18 mg/dL AO ADM SS Urea nitrogen/Creatinine [Mass ratio] 16 ratio Invalid Interpretation Code 7 - 27 ratio AO ADM SS WBC (Bld) [#/Vol] 7.9 103/mcL Invalid Interpretation Code 4.6 - 10.8 10^3/mcL AO Workflow SS LABORATORYOrdered By: Tacho Joseph on 05-31-2023 M. pneumoniae IgM IA Ql (S) Negative 6 (05/31/23 4:10 AM) Invalid Interpretation Code AH Man Viro[facility]Sero SS Comment on above: Interpretive Data: I NTERPRETATION OF MYCOPLASMA IgM: Negative: IgM to M. pneumoniae Absent, or at levels below the assay limit of detection. Positive: IgM to M. pneumoniae Present. Invalid: Test results are invalid due to invalid internal control. Assay was performed in duplicate. Repeat testing is suggested if clinically indicated. No Panel Informationon 05-31 Legionella Urine Ag Presumptive negative for L. pneumophila serogroup 1 antigen in urine, suggesting no recent or current infection. Legionnaire's disease cannot be ruled out since other serogroups and species may also cause disease. [facility] Streptococcus Pneumoniae Urine Antig Presumptive negative for pneumococcal pneumonia, suggesting no current or recent pneumococcal infection. Infection due to Strep pneumoniae cannot be ruled out since the antigen present in the sample may be below the detection limit of the test. [facility] Comment on above: This test has not be en evaluated on patients taking antibiotics for greater than 24 hours or on patients who have recently completed an antibiotic regimen. The accuracy of this test has not been proven in young children. PBNPon 05-31-2023 Natriuretic peptide B (Bld) [Mass/Vol] 323 pg/mL High 0-125 [facility] ([place]) Comment on above: Result Comment: NT-p roBNP results of less than 300 pg/mL effectively rules out acute congestive heart failure with 99% negative predictive value. Performed By: #### A DIFF, ANEU, PRO, CBC, MG, BMP, GFR #### [address] [address] PROon 05-31-2023 PT Coag (PPP) [Time] 24.5 s High 9.0-14.2 [facility] ([place]) Comment on above: Performed By: #### A DIFF, ANEU, PRO, CBC, MG, BMP, GFR #### [address] [address] PT International Ratio 2.1 Normal [facility] ([place]) Comment on above: Result Comment: The [place] [employer] (CHEST, 1992, [id number]) recommended therapeutic range for oral anticoagulant therapy is: LOW RISK: Prophylaxis of venous thrombosis INR: 2.0-3.0 Treatment of pulmonary embolism 2.0-3.0 Prevention of systemic embolism 2.0-3.0 HIGH RISK: Mechanical prosthetic valves 2.5-3.5 Performed By: #### A DIFF, ANEU, PRO, CBC, MG, BMP, GFR #### [place] [address] RESCVIDon 05-31-2023 Adenovirus Not detected Normal Not Detected [facility] ([place]) Comment on above: Performed By: #### A DIFF, ANEU, PRO, CBC, MG, BMP, GFR #### [place] [address] Bordetella Parapertussis Not detected Normal Not Detected [facility] ([place]) Comment on above: Performed By: #### A DIFF, ANEU, PRO, CBC, MG, BMP, GFR #### [place] [address] Bordetella Pertussis Not detected Normal Not Detected [facility] ([place]) Comment on above: Performed By: #### A DIFF, ANEU, PRO, CBC, MG, BMP, GFR #### [place] [address] Chlamydophila pneumoniae Not detected Normal Not Detected [facility] ([place]) Comment on above: Performed By: #### A DIFF, ANEU, PRO, CBC, MG, BMP, GFR #### [place] [address] Coronavirus 229E (Not COVID-19) Not detected Normal Not Detected [facility] ([place]) Comment on above: Performed By: #### A DIFF, ANEU, PRO, CBC, MG, BMP, GFR #### [place] [address] Coronavirus HKU1 (Not COVID-19) Not detected Normal Not Detected [facility] ([place]) Comment on above: Performed By: #### A DIFF, ANEU, PRO, CBC, MG, BMP, GFR #### [place] [address] Coronavirus NL63 (Not COVID-19) Not detected Normal Not Detected [facility] ([place]) Comment on above: Performed By: #### A DIFF, ANEU, PRO, CBC, MG, BMP, GFR #### [place] [address] Coronavirus OC43 (Not COVID-19) Not detected Normal Not Detected [facility] ([place]) Comment on above: Performed By: #### A DIFF, ANEU, PRO, CBC, MG, BMP, GFR #### [place] [address] Human Metapneumovirus Not detected Normal Not Detected [facility] ([place]) Comment on above: Performed By: #### A DIFF, ANEU, PRO, CBC, MG, BMP, GFR #### [place] [address] Influenza A Not detected Normal Not Detected [facility] ([place]) Comment on above: Performed By: #### A DIFF, ANEU, PRO, CBC, MG, BMP, GFR #### [place] [address] Influenza B Not detected Normal Not Detected [facility] ([place]) Comment on above: Performed By: #### A DIFF, ANEU, PRO, CBC, MG, BMP, GFR #### [place] [address] Mycoplasma pneumoniae Not detected Normal Not Detected [facility] ([place]) Comment on above: Performed By: #### A DIFF, ANEU, PRO, CBC, MG, BMP, GFR #### [place] [address] Parainfluenza 1 Not detected Normal Not Detected [facility] ([place]) Comment on above: Performed By: #### A DIFF, ANEU, PRO, CBC, MG, BMP, GFR #### [place] [address] Parainfluenza 2 Not detected Normal Not Detected [facility] ([place]) Comment on above: Performed By: #### A DIFF, ANEU, PRO, CBC, MG, BMP, GFR #### [place] [address] Parainfluenza 3 Not detected Normal Not Detected [facility] ([place]) Comment on above: Performed By: #### A DIFF, ANEU, PRO, CBC, MG, BMP, GFR #### [address] [address] Parainfluenza 4 Not detected Normal Not Detected [facility] ([place]) Comment on above: Performed By: #### A DIFF, ANEU, PRO, CBC, MG, BMP, GFR #### [address] [address] Respiratory Syncytial Virus Not detected Normal Not Detected [facility] ([place]) Comment on above: Performed By: #### A DIFF, ANEU, PRO, CBC, MG, BMP, GFR #### [address] [address] Rhinovirus/Enterovirus Detected Abnormal Not Detected [facility] ([place]) Comment on above: Performed By: #### A DIFF, ANEU, PRO, CBC, MG, BMP, GFR #### [address] [address] SARS-CoV-2 (COVID-19) RNA IRENE+probe Ql (Unsp spec) Not detected Normal Not Detected [facility] ([place]) Comment on above: Result Comment: This test is being used under the FDA EUA procedure. This assay has been validated in the [facility] for use with nasopharyngeal specimens in [facility]. If a non-validated specimen or test collection method was used, please interpret the results with caution, especially if the test result is negative. A positive test result for COVID-19 indicates that RNA from SARS-CoV-2 was detected, and the patient is infected with the virus and presumed to be contagious. Laboratory test results should always be considered in the context of clinical observations and epidemiological data in making a final diagnosis and patient management decisions. Patient management should follow current CDC guidelines. A negative test result for this test means that SARS-CoV-2 RNA was not present in the specimen above the limit of detection. However, a negative result does not rule out COVID-19 and should not be used as the sole basis for treatment or patient management decisions. A negative result does not exclude the possibility of COVID-19. When diagnostic testing is negative, the possibility of a false negative result should be considered in the context of a patient's recent exposures and the presence of clinical signs and symptoms consistent with COVID-19. The possibility of a false negative result should especially be considered if the patient?s recent exposures or clinical presentation indicate that COVID-19 is likely, and diagnostic tests for other causes of illness (e.g., other respiratory illness) are negative. If COVID-19 is still suspected based on exposure history together with other clinical findings, re-testing should be considered by healthcare providers in consultation with public health authorities. Performed By: #### A DIFF, ANEU, PRO, CBC, MG, BMP, GFR #### [address] [address] TROPHSon 05-31-2023 Troponin I High Sensitivity 18.6 ng/L Normal 0.0-51.4 [facility] ([place]) Comment on above: Performed By: #### A DIFF, ANEU, PRO, CBC, MG, BMP, GFR #### [address] [address] XR CHEST 1 VIEWon 05-31-2023 XR CHEST 1 VIEW ORIGINAL EXAMINATION: ONE XRAY VIEW OF THE CHEST 05/31/2023 5:02 am COMPARISON: 10/30/2019 HISTORY: ORDERING SYSTEM PROVIDED HISTORY: Reason for Exam: SOB/cough/fever FINDINGS: Normal cardiomediastinal silhouette. Suboptimal exam secondary to body habitus. No vascular congestion, dense consolidation, large pleural effusion, or visible pneumothorax. Osseous structures are poorly evaluated although appear grossly intact. IMPRESSION: Mild interstitial prominence may artifactual/chronic although correlate for signs of atypical infectious process. I have personally reviewed the images of this examination and agree with the resident's findings and interpretation. Interpreted by: Donita Goldman MD Preliminary Report By: Derek León Electronically signed By Donita Goldman MD Dictated Date: 05/31/2023 5:11:23 AM Prelim Date: 05/31/2023 5:13:35 AM Sign Date: 05/31/2023 5:55:35 AM Ordering Provider: CARLOS SINGH [facility] ([place]) INR in Blood by Coagulation assayOrdered By: Daniel Sharma on 04-30-2023 INR Coag (Bld) [Relative time] 2.2 {INR} [facility] Laboratory - CoagulationOrde red By: Daniel Sharma on 04-30-2023 PT Coag (PPP) [Time] 24.3 s 11.7-14.9 [facility] 25-hydroxyvitamin D3 [Mass/V ol]on 03-29-2023 Interpretation and review of laboratory results Abnormal [facility] Therapy is based on measurement of Total 25-OHD with the following classification levels: Less than 20 ng/mL: Indicative of Vit D deficiency 20-30 ng/mL: Suggests Vit D insufficiency Optimal: Greater than or equal to 30 ng/mL Test performed by [employer] Immunoassay, measuring Total Vitamin D, not individual fractions. [facility] Ferritinon 03-29-2023 Ferritin [Mass/Vol] 21 ng/mL 11 - 264 ng/mL [facility] Ferritin [Mass/Vol]on 2022 Interpretation and review of laboratory results Normal [facility] Hemoglobin (Bld) [Mass/Vol]O rdered By: Emmanuelle Mckeon on 03-29-2023 Hematocrit (Bld) [Volume fraction] 35.4 % 35.0 - 47.0 % [facility] Interpretation and review of laboratory results Abnormal [facility] Hemoglobin and hematocrit, b loodOrdered By: Emmanuelle Mckeon on 03-29-2023 Hemoglobin (Bld) [Mass/Vol] 11.4 g/dL Low 11.7 - 16.0 g/dL [facility] Magnesiumon 03-29-2023 Magnesium [Mass/Vol] 1.6 mg/dL 1.6 - 2 .3 mg/dL [facility] Magnesium [Mass/Vol]on 03-29 Interpretation and review of laboratory results Normal [facility] Vitamin D 25 hydroxyon 03-29 25-hydroxyvitamin D3 [Mass/Vol] 19 ng/mL Low 30 - 100 ng/mL [facility] Vitamin B1, whole bloodon Thiamine pyrophosphate (Bld) [Moles/Vol] 141 nmol/L 70 - 180 nmol/L [facility] Comment on above: INTERPRETIVE INFORMA TION: Vitamin B1, Whole Blood This assay measures the concentration of thiamine diphosphate (TDP), the primary active form of vitamin B1. Approximately 90 percent of vitamin B1 present in whole blood is TDP. Thiamine and thiamine monophosphate, which comprise the remaining 10 percent, are not measured. This test was developed and its performance characteristics determined by [employer]. It has not been cleared or approved by the [place] Food and Drug Administration. This test was performed in a CLIA certified laboratory and is intended for clinical purposes. Performed By: [employer] [address] [place] [id number] Product Safety Administrator: Rojelio Torres MD, PhD [facility] [employer] 02-26-2023 Zinc [Mass/Vol] 74.1 ug/dL 60.0 - 120.0 ug/dL [facility] Comment on above: INTERPRETIVE INFORMA TION: Zinc, Serum or Plasma Elevated results may be due to skin or collection-related contamination, including the use of a noncertified metal-free collection/transport tube. If contamination concerns exist due to elevated levels of serum/plasma zinc, confirmation with a second specimen collected in a certified metal-free tube is recommended. Circulating zinc concentrations are dependent on albumin status and are depressed with malnutrition. Zinc may also be lowered with infection, inflammation, stress, oral contraceptives, and . Zinc may be elevated with zinc supplementation or fasting. Elevated zinc concentrations may interfere with copper absorption. This test was developed and its performance characteristics determined by [employer]. It has not been cleared or approved by the [place] Food and Drug Administration. This test was performed in a CLIA certified laboratory and is intended for clinical purposes. Performed By: [employer] [address] [place] [id number] Product Safety Administrator: Rojelio Torres MD, PhD [facility] 25-hydroxyvitamin D3 [Mass/V ol]on 02-23-2023 Interpretation and review of laboratory results Abnormal [facility] Therapy is based on measurement of Total 25-OHD with the following classification levels: Less than 20 ng/mL: Indicative of Vit D deficiency 20-30 ng/mL: Suggests Vit D insufficiency Optimal: Greater than or equal to 30 ng/mL Test performed by [employer] Immunoassay, measuring Total Vitamin D, not individual fractions. [facility] CBC panel Auto (Bld)Ordered By: Lorna Oneill on 02-23-2023 Erythrocyte distribution width (RBC) [Ratio] 14.7 % High 11.5 - 14.5 % [facility] Hematocrit (Bld) [Volume fraction] 34.7 % Low 35.0 - 47.0 % [facility] Hemoglobin (Bld) [Mass/Vol] 11.2 g/dL Low 11.7 - 16.0 g/dL [facility] Interpretation and review of laboratory results Abnormal [facility] MCH (RBC) [Entitic mass] 27.4 pg 26.0 - 34.0 pg [facility] MCHC (RBC) [Mass/Vol] 32.3 % 32.0 - 36.0 % [facility] MCV (RBC) [Entitic vol] 84.8 fL 80.0 - 98.0 fL [facility] Platelet mean volume (Bld) [Entitic vol] 9.7 fL 7.4 - 12.4 fL [facility] Comment on above: MPV is a calculated measurement using platelet volume ratio Platelets (Bld) [#/Vol] 278 10*3/uL 140 - 440 10*3/uL [facility] RBC (Bld) [#/Vol] 4.09 10*6/uL 3.8 - 5.20 10*6/uL [facility] WBC (Bld) [#/Vol] 5.5 10*3/uL 3.6 - 10.7 10*3/uL [facility] Comprehensive metabolic 1998 panelon 02-23-2023 Albumin [Mass/Vol] 4.0 g/dL 3.5 - 5.0 g/dL [facility] ALP [Catalytic activity/Vol] 82 U/L 38 - 126 U/L [facility] ALT [Catalytic activity/Vol] 23 U/L 0 - 34 U/L [facility] Anion gap [Moles/Vol] 5 mmol/L 3 - 13 mmol/L [facility] AST [Catalytic activity/Vol] 28 U/L 15 - 46 U/L [facility] Bilirubin [Mass/Vol] 0.5 mg/dL 0.2 - 1 .3 mg/dL [facility] Calcium [Mass/Vol] 8.9 mg/dL 8.4 - 10. 4 mg/dL [facility] Chloride [Moles/Vol] 108 mmol/L High 98 - 10 7 mmol/L [facility] CO2 [Moles/Vol] 29 mmol/L 22 - 30 mmol/L [facility] Creatinine [Mass/Vol] 0.59 mg/dL 0.52 - 1.04 mg/dL [facility] GFR/1.73 sq M.predicted MDRD (S/P/Bld) [Vol rate/Area] - PINF [facility] Comment on above: Calculation based on the Chronic Kidney Disease Epidemiology Collaboration (CKD-EPI) equation refit without adjustment for race Glucose [Mass/Vol] 112 mg/dL High 70 - 100 mg/dL [facility] Potassium [Moles/Vol] 3.9 mmol/L 3.5 - 5.1 mmol/L [facility] Protein [Mass/Vol] 7.3 g/dL 6.3 - 8.2 g/dL [facility] Sodium [Moles/Vol] 141 mmol/L 135 - 145 mmol/L [facility] Urea nitrogen [Mass/Vol] 16 mg/dL 7 - 17 mg/dL [facility] Ferritinon 02-23-2023 Ferritin [Mass/Vol] 18 ng/mL 11 - 264 ng/mL [facility] Ferritin [Mass/Vol]on 2022 Interpretation and review of laboratory results Normal [facility] Folateon 02-23-2023 Folate [Mass/Vol] 9.5 ng/mL 2.9 - PINF ng/mL [facility] Iron and Iron binding capaci ty panelon 02-23-2023 Interpretation and review of laboratory results Normal [facility] Iron [Mass/Vol] 59 ug/dL 37 - 170 ug/dL [facility] Lipid 1996 panelon Cholesterol [Mass/Vol] 128 mg/dL [facility] - 200 mg/dL [facility] Cholesterol in HDL [Mass/Vol] 57 mg/dL 40 - 60 mg/dL [facility] Cholesterol in LDL [Mass/Vol] 45 mg/dL 0 - <100 [facility] Cholesterol.total/Chol esterol in HDL [Mass ratio] 2 {ratio} [facility] Comment on above: Ref Range: < 3 Low Risk for CHD 3-6 Mod Risk for CHD > 6 High Risk for CHD Triglyceride [Mass/Vol] 132 mg/dL NINF - 150 mg/dL [facility] Magnesiumon 02-23-2023 Magnesium [Mass/Vol] 1.5 mg/dL Low 1.6 - 2 .3 mg/dL [facility] No Panel Informationon 02-23 Interpretation and review of laboratory results Normal [facility] Interpretation and review of laboratory results Abnormal [facility] Vitamin B12on 02-23-2023 Cobalamin (Vitamin B12) [Mass/Vol] 400 pg/mL 239 - 931 pg/mL [facility] [employer] Vitamin D 25 hydroxyon 02-23 25-hydroxyvitamin D3 [Mass/Vol] 22 ng/mL Low 30 - 100 ng/mL [facility] No Panel InformationOrdered By: Dr. Meier on 11-14-2022 Endomysial IgA Antibody Negative Negative [facility] Serum IgA measurement (units /volume)Ordered By: Dr. Meier on 11-14-2022 IgA Qn (S) 289 mg/dL 87-352 [facility] Comment on above: Performed at: [facility] [employer] [id number] Director: Marvin Ordaz PhD, Phone: [phone] Serum or plasma C reactive p rotein measurement (mass/volume)Ordered By: Dr. Meier on 11-14-2022 CRP [Mass/Vol] 3.00 mg/L 0.0-3.0 [facility] Comment on above: C-Reactive Protein ( CRP) provides useful information for thediagnosis, therapy and monitoring of inflammatory processesand associated diseases. For the evaluation of Relative Riskfor Cardiovascular Disease, a High Sensitivity CRP (HSCRP)should be ordered. Serum tissue transglutaminas e IgA antibody assay (units/volume)Ordered By: Dr. Meier on 11-14-2022 tTG IgA Qn (S) <2 U/mL 0-3 [facility] Comment on above: Negative 0 - 3 Weak Positive 4 - 10 Positive >10 Tissue Transglutaminase (tTG) has been identified as the endomysial antigen. Studies have demonstr- ated that endomysial IgA antibodies have over 99% specificity for gluten sensitive enteropathy. Absolute lymphocyte countOrd ered By: Dr. Dial on 11-02-2022 Lymphocytes Auto (Unsp spec) [#/Vol] 1.85 10*3/uL 0.83-4.51 [facility] Basophil percentageOrdered B y: Dr. Dial on 11-02-2022 Basophils/100 WBC (Bld) 0.3 % 0-1 [facility] Bilirubin [Mass/Vol] 0.40 mg/dL 0.20-1.00 [facility] Comment on above: For patients on eltr ombopag therapy, use of [employer]ension [employer] TBIL is not recommended. Chloride [Moles/Vol] 106 mmol/L 98-107 [facility] Eosinophils/100 WBC (Bld) 4.6 % 0-5 [facility] Glucose [Mass/Vol] 68 mg/dL 74-106 [facility] Neutrophils (Bld) [#/Vol] 4.4 10*3/uL 2.0-7.7 [facility] Neutrophils/100 WBC (Bld) 63.3 % 47-70 [facility] Potassium [Moles/Vol] 4.5 mmol/L 3.5-5.[address] [facility] Protein [Mass/Vol] 7.6 g/dL 6.4-8.2 [facility] Sodium [Moles/Vol] 142 mmol/L 136-145 [facility] WBC (Bld) [#/Vol] 7.0 10*3/uL 4.4-11.0 [facility] Blood erythrocytes count (nu mber/volume)Ordered By: Dr. Dial on 11-02-2022 RBC (Bld) [#/Vol] 4.27 10*6/uL 4.2-5.4 [facility] Blood hemoglobin measurement (mass/volume)Ordered By: Dr. Dial on 11-02-2022 Hemoglobin (Bld) [Mass/Vol] 11.8 g/dL 12.0-15.0 [facility] Blood lymphocytes/100 leukoc ytesOrdered By: Dr. Dial on 11-02-2022 Lymphocytes/100 WBC (Bld) 26.4 % 19-41 [facility] Blood monocytes/100 leukocyt esOrdered By: Dr. Dial on 11-02-2022 Monocytes/100 WBC (Bld) 5.1 % 0-10 [facility] Blood platelet mean volumeOr dered By: Dr. Dial on 11-02-2022 Platelet mean volume (Bld) [Entitic vol] 9.5 fL 6.2-12.0 [facility] Determination of erythrocyte mean corpuscular volume (MCV)Ordered By: Dr. Dial on 11-02-2022 MCV (RBC) [Entitic vol] 88.1 fL 81-99 [facility] Hematocrit Auto (Bld) [Volum e fraction]Ordered By: Dr. iDal on 11-02-2022 Hematocrit (Bld) [Volume fraction] 37.6 % 37-47 [facility] Laboratory - Chemistry and C hemistry - challengeOrdered By: Dr. Dial on 11-02-2022 ALP [Catalytic activity/Vol] 99 U/L 45-117 [facility] ALT [Catalytic activity/Vol] 20 U/L 13-56 [facility] CO2 [Moles/Vol] 29.0 mmol/L 21.0-32.0 [facility] Globulin (S) [Mass/Vol] 4.2 g/dL 2.2-4.2 [facility] Urea nitrogen/Creatinine [Mass ratio] 18.5 mg/mg 10-20 [facility] Laboratory - Hematology and Cell countsOrdered By: Dr. Dial on 11-02-2022 Erythrocyte distribution width (RBC) [Entitic vol] 51.0 fL 35.1-43.9 [facility] Erythrocyte distribution width (RBC) [Ratio] 15.9 % 11.6-14.6 [facility] Immature granulocytes/100 WBC (Bld) 0.300 % 0.0-0.9 [facility] Comment on above: IG% - Immature Granu locytes (promyelocytes, myelocytes and metamyelocytes) > 1% indicates that a LEFT SHIFT is Present. MCH (RBC) [Entitic mass] 27.6 pg 27.0-32.0 [facility] Nucleated RBC/100 WBC (Bld) [Ratio] 0 % 0-5 [facility] MCHC Auto (RBC) [Mass/Vol]Or dered By: Dr. Dial on 11-02-2022 MCHC (RBC) [Mass/Vol] 31.4 g/dL 32-[address] [facility] No Panel InformationOrdered By: Dr. Dial on 11-02-2022 Estimated GFR (MDRD) Amer 84 mL/min >60 [facility] Comment on above: GFR Calc Estimated GFR (MDRD) Non-Af Amer 69 mL/min >60 [facility] Comment on above: Non- GFR Calc Platelets bldOrdered By: Dr. Dial on 11-02-2022 Platelets (Bld) [#/Vol] 411 10*3/uL 150-450 [facility] Serum or plasma albumin sydnie urement (mass/volume)Ordered By: Dr. Dial on 11-02-2022 Albumin [Mass/Vol] 3.4 g/dL 3.2-5.0 [facility] Serum or plasma albumin/glob ulin mass ratioOrdered By: Dr. Dial on 11-02-2022 Albumin/Globulin [Mass ratio] 0.8 {ratio} 0.9-2.4 [facility] Serum or plasma calcium sydnie urement (mass/volume)Ordered By: Dr. Dial on 11-02-2022 Calcium [Mass/Vol] 9.7 mg/dL 8.5-10.1 [facility] Serum or plasma creatinine m easurement (mass/volume)Ordered By: Dr. Dial on 11-02-2022 Creatinine [Mass/Vol] 0.86 mg/dL 0.55-1.[address] [facility] Comment on above: The validity of the calculated GFR & GFRAA in patients over 70 years has not been determined. Clinical correlation is essential. Serum or plasma urea nitroge n measurement (mass/volume)Ordered By: Dr. Dial on 11-02-2022 Urea nitrogen [Mass/Vol] 16 mg/dL 7-18 [facility] Thin prep Papanicolaou smear with manual screeningOrdered By: Dr. Dial on 11-02-2022 Thin prep Papanicolaou smear with manual screening 14 U/L 15-37 [facility] Thin prep Papanicolaou smear with manual screening 7 5-15 [facility] Whole blood hemoglobin A1c/t otal hemoglobin ratio (mass fraction)Ordered By: Dr. Dial on 11-02-2022 HbA1c (Bld) [Mass fraction] 5.8 % 3.8-5.6 [facility] Comment on above: Normal < 5.7 % Predi abetic 5.7 - 6.4 % Diabetic >or= 6.5 % Please note range changes. LABORATORYOrdered By: Patricia Gipson on 10-02-2022 Appearance (U) Slightly Cloudy *ABN* (10/02/22 3:41 AM) Invalid Interpretation Code Clear AO Auto Urine SS Bacteria LM.HPF (Urine sed) [#/Area] 3 /[HPF] Invalid Interpretation Code AO Auto Urine SS Bilirubin Ql (U) Negative (10/02/22 3:41 AM) Invalid Interpretation Code Negative AO Auto Urine SS Color (U) Yellow (10/02/22 3:41 AM) Invalid Interpretation Code AO Auto Urine SS Glucose Test strip (U) [Mass/Vol] Negative Invalid Interpretation Code Negativemg/d L AO Auto Urine SS Hemoglobin Auto test strip (U) [Mass/Vol] Negative (10/02/22 3:41 AM) Invalid Interpretation Code Negative AO Auto Urine SS Ketones Ql (U) Trace mg/dL Invalid Interpretation Code Negativemg/d L AO Auto Urine SS UA Leuk Est Trace *ABN* (10/02/22 3:41 AM) Invalid Interpretation Code Negative AO Auto Urine SS UA Mucous 1+ /HPF Invalid Interpretation Code AO Auto Urine SS UA Nitrite Negative (10/02/22 3:41 AM) Invalid Interpretation Code Negative AO Auto Urine SS UA pH 5.0 (10/02/22 3:41 AM) Invalid Interpretation Code 5.0 - 8.0 AO Auto Urine SS UA Protein Negative Invalid Interpretation Code Negativemg/d L AO Auto Urine SS UA RBC None Seen /HPF Invalid Interpretation Code None Seen/HPF AO Auto Urine SS UA Spec Grav 1.025 (10/02/22 3:41 AM) Invalid Interpretation Code 1.015-1.025 AO Auto Urine SS UA Specimen Type Clean Catch (10/02/22 3:41 AM) Invalid Interpretation Code AO Auto Urine SS UA Squam Epithelial LOADED /HPF Invalid Interpretation Code None Seen/HPF AO Auto Urine SS UA Urobilinogen 0.2 E.U./dL Invalid Interpretation Code 0.2-1.0E.U./ dL AO Auto Urine SS WBC LM.HPF (Urine sed) [#/Area] 15-25 /HPF Invalid Interpretation Code None Seen/HPF AO Auto Urine SS Laboratory - Chemistry and C hemistry - challengeon 09-30-2022 Bilirubin Ql (U) Negative [facility] Glucose Ql (U) Negative [facility] Ketones Ql (U) Trace (5) [facility] pH (U) 6.0 [pH] [facility] Specific gravity (U) [Rel density] 1.025 [facility] Urobilinogen (U) [Mass/Vol] Negative [facility] Laboratory - Hematology and Cell countson 09-30-2022 Hemoglobin Ql (U) Trace [facility] Laboratory - Specimen inform ationon 09-30-2022 Clarity (U) Cloudy [facility] Color (U) YELLOW [facility] Laboratory - Urinalysison Nitrite Ql (U) Positive [facility] Protein Ql (U) Negative [facility] No Panel Informationon 09-30 Urine Leukocytes Positive [facility] Urine Non-Hemolyzed Blood Non-Hemolyzed [facility] [place] 08-24-2022 Zinc [Mass/Vol] 80.2 ug/dL 60.0 - 120.0 ug/dL [facility] Comment on above: INTERPRETIVE INFORMA TION: Zinc, Serum or Plasma Elevated results may be due to skin or collection-related contamination, including the use of a noncertified metal-free collection/transport tube. If contamination concerns exist due to elevated levels of serum/plasma zinc, confirmation with a second specimen collected in a certified metal-free tube is recommended. Circulating zinc concentrations are dependent on albumin status and are depressed with malnutrition. Zinc may also be lowered with infection, inflammation, stress, oral contraceptives, and . Zinc may be elevated with zinc supplementation or fasting. Elevated zinc concentrations may interfere with copper absorption. This test was developed and its performance characteristics determined by [employer]. It has not been cleared or approved by the US Food and Drug Administration. This test was performed in a CLIA certified laboratory and is intended for clinical purposes. Performed By: [employer] [address] [place] [id number] Product Safety Administrator: Rojelio Torres MD, PhD [facility] 25-hydroxyvitamin D3 [Mass/V ol]on 08-21-2022 Interpretation and review of laboratory results Abnormal [facility] Therapy is based on measurement of Total 25-OHD with the following classification levels: Less than 20 ng/mL: Indicative of Vit D deficiency 20-30 ng/mL: Suggests Vit D insufficiency Optimal: Greater than or equal to 30 ng/mL Test performed by [employer] Immunoassay, measuring Total Vitamin D, not individual fractions. [facility] CBC panel Auto (Bld)on 08-21 Erythrocyte distribution width (RBC) [Ratio] 14.2 % 11.5 - 14.5 % [facility] Hematocrit (Bld) [Volume fraction] 37.1 % 35.0 - 47.0 % [facility] Hemoglobin (Bld) [Mass/Vol] 12.1 g/dL 11.7 - 16.0 g/dL [facility] Interpretation and review of laboratory results Normal [facility] MCH (RBC) [Entitic mass] 27.4 pg 26.0 - 34.0 pg [facility] MCHC (RBC) [Mass/Vol] 32.6 % 32.0 - 36.0 % [facility] MCV (RBC) [Entitic vol] 84.1 fL 80.0 - 98.0 fL [facility] Platelet mean volume (Bld) [Entitic vol] 9.5 fL 7.4 - 12.4 fL [facility] Comment on above: MPV is a calculated measurement using platelet volume ratio Platelets (Bld) [#/Vol] 319 10*3/uL 140 - 440 10*3/uL [facility] RBC (Bld) [#/Vol] 4.41 10*6/uL 3.8 - 5.20 10*6/uL [facility] WBC (Bld) [#/Vol] 7.2 10*3/uL 3.6 - 10.7 10*3/uL [facility] Comprehensive metabolic 1998 panelon 08-21-2022 Albumin [Mass/Vol] 3.9 g/dL 3.5 - 5.0 g/dL [facility] ALP [Catalytic activity/Vol] 96 U/L 38 - 126 U/L [facility] ALT [Catalytic activity/Vol] 16 U/L 0 - 34 U/L [facility] Anion gap [Moles/Vol] 4 mmol/L 3 - 13 mmol/L [facility] AST [Catalytic activity/Vol] 18 U/L 15 - 46 U/L [facility] Bilirubin [Mass/Vol] 0.5 mg/dL 0.2 - 1 .3 mg/dL [facility] Calcium [Mass/Vol] 9.4 mg/dL 8.4 - 10. 4 mg/dL [facility] Chloride [Moles/Vol] 107 mmol/L 98 - 10 7 mmol/L [facility] CO2 [Moles/Vol] 27 mmol/L 22 - 30 mmol/L [facility] Creatinine [Mass/Vol] 0.69 mg/dL 0.52 - 1.04 mg/dL [facility] GFR/1.73 sq M.predicted MDRD (S/P/Bld) [Vol rate/Area] - PINF [facility] Comment on above: Calculation based on the Chronic Kidney Disease Epidemiology Collaboration (CKD-EPI) equation refit without adjustment for race Glucose [Mass/Vol] 93 mg/dL 70 - 100 mg/dL [facility] Interpretation and review of laboratory results Normal [facility] Potassium [Moles/Vol] 4.0 mmol/L 3.5 - 5.1 mmol/L [facility] Protein [Mass/Vol] 6.6 g/dL 6.3 - 8.2 g/dL [facility] Sodium [Moles/Vol] 137 mmol/L 135 - 145 mmol/L [facility] Urea nitrogen [Mass/Vol] 14 mg/dL 7 - 17 mg/dL [facility] Ferritinon 08-21-2022 Ferritin [Mass/Vol] 20 ng/mL 11 - 264 ng/mL [facility] Ferritin [Mass/Vol]on 2021 Interpretation and review of laboratory results Normal [facility] Folateon 08-21-2022 Folate [Mass/Vol] 3.9 ng/mL 2.9 - PINF ng/mL [facility] Iron and Iron binding capaci ty panelon 08-21-2022 Interpretation and review of laboratory results Normal [facility] Iron [Mass/Vol] 58 ug/dL 37 - 170 ug/dL [facility] Lipid 1996 panelon 2 Cholesterol [Mass/Vol] 209 mg/dL High NINF - 200 mg/dL [facility] Cholesterol in HDL [Mass/Vol] 72 mg/dL High 40 - 60 mg/dL [facility] Cholesterol in LDL [Mass/Vol] 92 mg/dL 0 - <100 [facility] Cholesterol.total/Chol esterol in HDL [Mass ratio] 3 {ratio} [facility] Comment on above: Ref Range: < 3 Low Risk for CHD 3-6 Mod Risk for CHD > 6 High Risk for CHD Triglyceride [Mass/Vol] 227 mg/dL High NINF - 150 mg/dL [facility] Magnesiumon 08-21-2022 Magnesium [Mass/Vol] 1.5 mg/dL Low 1.6 - 2 .3 mg/dL [facility] No Panel Informationon 11-28 -2022 Interpretation and review of laboratory results Normal [facility] Interpretation and review of laboratory results Abnormal [facility] Vitamin B12on 08-21-2022 Cobalamin (Vitamin B12) [Mass/Vol] 400 pg/mL 239 - 931 pg/mL [facility] Vitamin D 25 hydroxyon 08-21 25-hydroxyvitamin D3 [Mass/Vol] 24 ng/mL Low 30 - 100 ng/mL [facility] Clostridium difficile detect ion by polymerase chain reactionOrdered By: Dr. Dial on 08-16-2022 C. difficile DNA IRENE+probe Ql (Unsp spec) [facility] Bilirubin Test strip Ql (U)o n 06-21-2022 Bilirubin Ql (U) Negative Negative [facility] Work Phone: Ketones Test strip Ql (U)on 06-21-2022 Ketones Ql (U) Negative Negative [facility] Work Phone: Nitrite Test strip Ql (U)on 06-21-2022 Nitrite Ql (U) Negative Negative [facility] Work Phone: Protein Test strip Ql (U)on 06-21-2022 Protein Ql (U) 15 mg/dl Negative [facility] Work Phone: Urine blood detectionon 05-26 RBC Ql (U) 10 /ul Negative [facility] Work Phone: Urine clarityon 06-21-2022 Clarity (U) Clear Clear [facility] Work Phone: Urine color determinationon 06-21-2022 Color (U) Yellow Yellow [facility] Work Phone: Urine glucose detectionon Glucose Ql (U) Normal mg/dl Normal [facility] Work Phone: Urine leukocyte esterase det ection by dipstickon 06-21-2022 Leukocyte esterase Test strip Ql (U) 500 /ul Negative [facility] Work Phone: Urine pHon 06-21-2022 pH (U) 5.0 [pH] 5.0 - 8.0 [facility] Work Phone: Urine specific gravity measu rementon 06-21-2022 Specific gravity (U) [Rel density] 1.020 1.002-1.030 [facility] Work Phone: Urobilinogen Auto test strip Ql (U)on 06-21-2022 Urobilinogen Ql (U) Normal mg/dl Normal [facility] Work Phone: Basophil percentageon 2021 Potassium [Moles/Vol] 3.8 mmol/L 3.5-5.[address] [facility] Work Phone: Laboratory - Chemistry and C hemistry - challengeon 06-20-2022 Magnesium [Mass/Vol] 1.7 mg/dL 1.6-2.6 [facility] Work Phone: LABORATORYOrdered By: Mackenzie Gibson on 06-12-2022 C. difficile toxin B tcdB gene IRENE+probe Ql (Stl) Positive 1 *ABN* (06/12/22 3:50 PM) Invalid Interpretation Code Negative Auto Viro[facility] Comment on above: Result Comment: Note s [id number] Clostridium difficile PCR Int tcdB gene DNA detected. C. difficile toxigenic confirmatory assay ordered. Results to follow.A positive C. difficile assay detection result does not necessarily indicate the presence of viable organisms. It does however indicate the presence of the tcdB gene and allows for the presumptive detection of the Clostridium difficile toxigenic organism.This assay can not be used for species identification as it does not contain primers and probes specific to Clostridium difficile.As with all PCR based in vitro diagnostic tests, extremely low levels of target below the limit of detection of the assay may be detected, but results may not be reproducible.Infecti on control will be notified. Invalid Interpretation Code AH Auto Viro/Sero SS No Panel Informationon 06-12 Clostridium difficile Toxin Confirmation Toxin A/B Confirmation Assay: Negative C. difficile toxin is either absent or below the detection limit of the test. [facility] Comment on above: The C.DIFF QUIK CHEC K COMPLETE TEST is used to detect C. difficile antigen and toxin(s) in fecal specimens. The test confirms the presence of toxin in feces and this information should be taken under consideration by the physician in light of the clinical history and physical examination of the patient. Fecal specimens are extremely complex. Optimal results with the C. DIFF CHECK COMPLETE test are obtained with specimens that are less than 24 hours old. No data exists on the effects of colonic washes, barium enemas, laxitive, or bowel preperations on the performance of the C. DIFF QUICK CHECK COMPLETE test. All of these procedures can result in extensive dilution or the presence of additives that may affect test performance. Zinc, Serumon 05-21-2022 Zinc, Serum 85.6 ug/dL Normal 60.0-120.0 [facility] Comment on above: Result Comment: INTE RPRETIVE INFORMATION: Zinc, Serum or Plasma Elevated results may be due to skin or collection-related contamination, including the use of a noncertified metal-free collection/transport tube. If contamination concerns exist due to elevated levels of serum/plasma zinc, confirmation with a second specimen collected in a certified metal-free tube is recommended. Circulating zinc concentrations are dependent on albumin status and are depressed with malnutrition. Zinc may also be lowered with infection, inflammation, stress, oral contraceptives, and . Zinc may be elevated with zinc supplementation or fasting. Elevated zinc concentrations may interfere with copper absorption. This test was developed and its performance characteristics determined by [employer]. It has not been cleared or approved by the [place] Food and Drug Administration. This test was performed in a CLIA certified laboratory and is intended for clinical purposes. Performed By: [employer] [address] [place] [id number] Product Safety Administrator: Rojelio Torres MD, PhD Performed By: #### M ACR5, HEMDF, LIPD2, CMP3 #### [facility] [employer] [facility] [address] [place] [address] CBCon 05-18-2022 MCHC (RBC) [Mass/Vol] 32.2 % 32 - 36 % [facility] Platelet distribution width (Bld) [Ratio] 16.2 % High 11.5 - 14.5 % [facility] Comp Metabolic Panelon 05-18 ALP [Catalytic activity/Vol] 86 U/L Normal 38-126 [facility] Comment on above: Performed By: #### M ACR5, HEMDF, LIPD2, CMP3 #### [facility] [address] [place] [address] ALT [Catalytic activity/Vol] 20 U/L Normal 0-34 [facility] Comment on above: Result Comment: The ALT test is performed by an updated assay method. Please note that the reference intervals have been changed and are now sex specific. Performed By: #### M ACR5, HEMDF, LIPD2, CMP3 #### [facility] [address] [place] [address] Anion gap [Moles/Vol] 6 mmol/L Normal 3-13 [facility] Comment on above: Performed By: #### M ACR5, HEMDF, LIPD2, CMP3 #### [facility] [address] [place] [address] AST [Catalytic activity/Vol] 25 U/L Normal 15-46 [facility] Comment on above: Performed By: #### M ACR5, HEMDF, LIPD2, CMP3 #### [facility] [address] [place] [address] Calcium [Mass/Vol] 9.8 mg/dL Normal 8.4-10.4 [facility] Comment on above: Performed By: #### M ACR5, HEMDF, LIPD2, CMP3 #### [facility] [address] [place] [address] CO2 [Moles/Vol] 26 mmol/L Normal 22-30 [facility] Comment on above: Performed By: #### M ACR5, HEMDF, LIPD2, CMP3 #### [facility] [address] [place] [address] Glucose [Mass/Vol] 125 mg/dL High 70-100 [facility] Comment on above: Performed By: #### M ACR5, HEMDF, LIPD2, CMP3 #### [facility] [address] [place] [address] Protein [Mass/Vol] 6.9 g/dL Normal 6.3-8.2 [facility] Comment on above: Performed By: #### M ACR5, HEMDF, LIPD2, CMP3 #### [facility] [address] [place] [address] Urea nitrogen [Mass/Vol] 14 mg/dL Normal 9-20 [facility] Comment on above: Performed By: #### M ACR5, HEMDF, LIPD2, CMP3 #### [facility] [address] [place] [address] Bilirubin [Mass/Vol] 0.5 mg/dL Normal 0.2-1.3 [facility] Comment on above: Performed By: #### M ACR5, HEMDF, LIPD2, CMP3 #### [facility] [address] [place] [address] Creatinine [Mass/Vol] 0.68 mg/dL Normal 0.52-1.25 [facility] Comment on above: Performed By: #### M ACR5, HEMDF, LIPD2, CMP3 #### [facility] [address] [place] [address] eGFR OTHER > 90.0 Normal >60 [facility] Comment on above: Result Comment: KDIG O guidelines provide the following GFR categories: Stage GFR(ml/min/1.73 m2) Terms G1 >=90 Normal or high G2 60-89 Mildly decreased* G3a 45-59 Mildly to moderately decreased G3b 30-44 Moderately to severely decreased G4 15-29 Severely decreased G5 <15 Kidney failure *Relative to young adult level. In the absence of evidence of kidney damage, neither GFR category G1 nor G2 fulfill the criteria for CKD. The CKD-EPI equation is validated in individuals 18 years of age and older. Currently the best equation for estimating glomerular filtration rate (GFR) from serum creatinine in children is the Bedside Ackerman equation. It is less accurate in patients with extremes of muscle mass, restriction of dietary protein, ingestion of creatine, extra-renal metabolism of creatinine, or treatment with medications that affect renal tubular creatinine secretion. Performed By: #### M ACR5, HEMDF, LIPD2, CMP3 #### [facility] [address] [place] [address] GFR/1.73 sq M.predicted among blacks MDRD (S/P/Bld) [Vol rate/Area] mL/min/{1.73_m2} Normal >60 [facility] Comment on above: Performed By: #### M ACR5, HEMDF, LIPD2, CMP3 #### [facility] [address] [place] [address] Albumin [Mass/Vol] 4.0 g/dL Normal 3.5-5.0 [facility] Comment on above: Performed By: #### M ACR5, HEMDF, LIPD2, CMP3 #### [facility] [address] [place] [address] Chloride [Moles/Vol] 109 mmol/L High 98-107 [facility] Comment on above: Performed By: #### M ACR5, HEMDF, LIPD2, CMP3 #### [facility] [address] [place] [address] Potassium [Moles/Vol] 3.6 mmol/L Normal 3.5-5.1 [facility] Comment on above: Performed By: #### M ACR5, HEMDF, LIPD2, CMP3 #### [facility] [address] [place] [address] Sodium [Moles/Vol] 141 mmol/L Normal 135-145 [facility] Comment on above: Performed By: #### M ACR5, HEMDF, LIPD2, CMP3 #### [facility] [address] [place] [address] Comprehensive Metabolic Pane elder 05-18-2022 Albumin [Mass/Vol] 4.0 g/dL 3.5 - 5 g/dL [facility] ALP (Bld) [Catalytic activity/Vol] 86 U/L 38 - 126 U/L [facility] ALT [Catalytic activity/Vol] 20 U/L 0 - 34 U/L [facility] Comment on above: The ALT test is perf ormed by an updated assay method. Please note that the reference intervals have been changed and are now sex specific. Anion gap [Moles/Vol] 6 mmol/L 3 - 13 mmol/L [facility] AST [Catalytic activity/Vol] 25 U/L 15 - 46 U/L [facility] Bilirubin [Mass/Vol] 0.5 mg/dL 0.2 - 1 .3 mg/dL [facility] Calcium [Mass/Vol] 9.8 mg/dL 8.4 - 10. 4 mg/dL [facility] Chloride [Moles/Vol] 109 mmol/L High 98 - 10 7 mmol/L [facility] CO2 [Moles/Vol] 26 mmol/L 22 - 30 mmol/L [facility] Creatinine [Mass/Vol] 0.68 mg/dL 0.52 - 1.25 mg/dL [facility] eGFR mL/min 60 - P INF mL/min [facility] EGFR IF NonAfrican Ecuadorean mL/min 60 - PINF mL/min [facility] Comment on above: KDIGO guidelines pro vide the following GFR categories: Stage GFR(ml/min/1.73 m2) Terms G1 >=90 Normal or high G2 60-89 Mildly decreased* G3a 45-59 Mildly to moderately decreased G3b 30-44 Moderately to severely decreased G4 15-29 Severely decreased G5 <15 Kidney failure *Relative to young adult level. In the absence of evidence of kidney damage, neither GFR category G1 nor G2 fulfill the criteria for CKD. The CKD-EPI equation is validated in individuals 18 years of age and older. Currently the best equation for estimating glomerular filtration rate (GFR) from serum creatinine in children is the Bedside Ackerman equation. It is less accurate in patients with extremes of muscle mass, restriction of dietary protein, ingestion of creatine, extra-renal metabolism of creatinine, or treatment with medications that affect renal tubular creatinine secretion. Free PSA/Total PSA [Mass fraction] 6.9 g/dL 6.3 - 8.2 g/dL [facility] Glucose [Mass/Vol] 125 mg/dL High 70 - 100 mg/dL [facility] Potassium [Moles/Vol] 3.6 mmol/L 3.5 - 5.1 mmol/L [facility] Sodium [Moles/Vol] 141 mmol/L 135 - 145 mmol/L [facility] Urea nitrogen (BldV) [Mass/Vol] 14 mg/dL 9 - 20 mg/dL [facility] Ferritinon 05-18-2022 Ferritin [Mass/Vol] 26 ng/mL Normal 11-264 [facility] Comment on above: Performed By: #### M ACR5, HEMDF, LIPD2, CMP3 #### [facility] [address] [place] [address] Ferritin [Mass/Vol] 26 ng/mL 11 - 264 ng/mL [facility] Test Performed by [facility], [address] , [address] LAB [facility] Folateon 05-18-2022 Folate 6.2 ng/mL Normal [facility] Comment on above: Result Comment: >2.8 Performed By: #### M ACR5, HEMDF, LIPD2, CMP3 #### [facility] [address] [place] [address] Folate 6.2 ng/mL [facility] Comment on above: >2.8 Hemogramon 05-18-2022 Erythrocyte distribution width (RBC) [Ratio] 16.2 % High 11.5-14.5 [facility] Comment on above: Performed By: #### M ACR5, HEMDF, LIPD2, CMP3 #### [facility] [address] [place] [address] Hematocrit (Bld) [Volume fraction] 35.7 % Normal 35.0-47.0 [facility] Comment on above: Performed By: #### M ACR5, HEMDF, LIPD2, CMP3 #### [facility] [address] [place] [address] Hemoglobin (Bld) [Mass/Vol] 11.5 g/dL Low 11.7-16.0 [facility] Comment on above: Performed By: #### M ACR5, HEMDF, LIPD2, CMP3 #### [facility] [address] [place] [address] MCH (RBC) [Entitic mass] 27.4 pg Normal 26.0-34.0 [facility] Comment on above: Performed By: #### M ACR5, HEMDF, LIPD2, CMP3 #### [facility] [address] [place] [address] MCHC 32.2 % Normal 32.0-36.0 [facility] Comment on above: Performed By: #### M ACR5, HEMDF, LIPD2, CMP3 #### [facility] [address] [place] [address] MCV (RBC) [Entitic vol] 85.0 fL Normal 79.0-98.0 [facility] Comment on above: Performed By: #### M ACR5, HEMDF, LIPD2, CMP3 #### [facility] [address] [place] [address] Platelet mean volume (Bld) [Entitic vol] 9.2 fL Normal 7.4-12.4 [facility] Comment on above: MPV is a calculated measurement using platelet volume ratio. Result Comment: MPV is a calculated measurement using platelet volume ratio. Performed By: #### M ACR5, HEMDF, LIPD2, CMP3 #### [facility] [address] [place] [address] Platelets (Bld) [#/Vol] 371 10*3/uL Normal 140-440 [facility] Comment on above: Performed By: #### M ACR5, HEMDF, LIPD2, CMP3 #### [facility] [address] [place] [address] RBC (Bld) [#/Vol] 4.20 10*6/uL Normal 3.80-5.20 [facility] Comment on above: Performed By: #### M ACR5, HEMDF, LIPD2, CMP3 #### [facility] [address] [place] [address] WBC (Bld) [#/Vol] 6.6 10*3/uL Normal 3.6-10.7 [facility] Comment on above: Performed By: #### M ACR5, HEMDF, LIPD2, CMP3 #### [facility] [address] [place] [address] Ironon 05-18-2022 Iron [Mass/Vol] 71 ug/dL 37 - 170 ug/dL [facility] Test Performed by [facility], [facility] [address] , [address] LAB [facility] Iron, Totalon 05-18-2022 Iron, Total 71 ug/dL Normal 37-170 [facility] Comment on above: Performed By: #### M ACR5, HEMDF, LIPD2, CMP3 #### [facility] [address] [place] [address] Magnesiumon 05-18-2022 Magnesium [Mass/Vol] 1.6 mg/dL Normal 1.6-2.3 [facility] Comment on above: Performed By: #### M ACR5, HEMDF, LIPD2, CMP3 #### [facility] [address] [place] [address] Magnesium [Mass/Vol] 1.6 mg/dL Normal 1.6-2.3 [facility] Comment on above: Performed By: #### M G3, K3 #### [facility] [address] [place] [address] Magnesium [Mass/Vol] 1.6 mg/dL 1.6 - 2 .3 mg/dL [facility] Magnesium [Mass/Vol] 1.6 mg/dL 1.6 - 2 .3 mg/dL [facility] No Panel Informationon 05-18 Test Performed by [facility], [facility] [address] , [address] LAB [facility] Interpretation and review of laboratory results Abnormal [facility] Test Performed by [facility], [facility] [address]o , [address] LAB [facility] Test Performed by [facility], [facility] [address] , [address] LAB [facility] Potassiumon 05-18-2022 Potassium [Moles/Vol] 3.5 mmol/L Normal 3.5-5.1 [facility] Comment on above: Performed By: #### Katja G3, K3 #### [facility] [address] [place] [address] Potassium [Moles/Vol] 3.5 mmol/L 3.5 - 5.1 mmol/L [facility] Vitamin B12on 05-18-2022 Cobalamin (Vitamin B12) [Mass/Vol] 449 pg/mL Normal 239-931 [facility] Comment on above: Performed By: #### M ACR5, HEMDF, LIPD2, CMP3 #### [facility] [address] [address] Cobalamin (Vitamin B12) [Mass/Vol] 449 pg/mL 239 - 931 pg/mL [facility] Basophil percentageon 2021 Potassium [Moles/Vol] 3.4 mmol/L 3.5-5.[address] [facility] Work Phone: Laboratory - Chemistry and C hemistry - challengeon 05-05-2022 Magnesium [Mass/Vol] 1.6 mg/dL 1.6-2.6 [facility] Work Phone: LABORATORYOrdered By: Patricia Gipson on 04-24-2022 Calcium [Mass/Vol] 9.4 mg/dL Invalid Interpretation Code 8.4 - 10.2 mg/dL AO ADM SS Chloride [Moles/Vol] 103 mmol/L Invalid Interpretation Code 98 - 107 mmol/L AO ADM SS CO2 [Moles/Vol] 27 mmol/L Invalid Interpretation Code 23 - 31 mmol/L AO ADM SS Creatinine [Mass/Vol] 0.83 mg/dL Invalid Interpretation Code 0.55 - 1.02 mg/dL AO ADM SS Electrolyte Balance 9.0 mEq/L Invalid Interpretation Code 4.0 - 15.0 mEq/L AO ADM SS Glucose [Mass/Vol] 195 mg/dL Invalid Interpretation Code 80 - 115 mg/dL AO ADM SS Magnesium [Mass/Vol] 1.4 mg/dL Invalid Interpretation Code 1.8 - 2.4 mg/dL AO ADM SS Potassium [Moles/Vol] 3.9 mmol/L Invalid Interpretation Code 3.5 - 5.1 mmol/L AO ADM SS Sodium [Moles/Vol] 139 mmol/L Invalid Interpretation Code 136 - 145 mmol/L AO ADM SS Urea nitrogen [Mass/Vol] 19 mg/dL Invalid Interpretation Code 7 - 18 mg/dL AO ADM SS Urea nitrogen/Creatinine [Mass ratio] 23 ratio Invalid Interpretation Code 7 - 27 ratio AO ADM SS LABORATORYOrdered By: SYSTEM SYSTEM on 04-24-2022 GFR 83 ml/min/1.73sqm Invalid Interpretation Code AO Chemistry S GFR Non- 69 ml/min/1.73sqm Invalid Interpretation Code AO Chemistry S LABORATORYOrdered By: Keesha Lawrence on 04-20-2022 Blood Glucose Testing Reason Routine (04/20/22 4:23 PM) [facility] Glucose [Mass/Vol] 203 mg/dL Invalid Interpretation Code 82 - 115 mg/dL [facility] Blood Glucose Testing Reason Routine (04/20/22 11:22 AM) [facility] Glucose [Mass/Vol] 180 mg/dL Invalid Interpretation Code 82 - 115 mg/dL [facility] Blood Glucose Testing Reason Routine (04/20/22 7:24 AM) [facility] Glucose [Mass/Vol] 185 mg/dL Invalid Interpretation Code 82 - 115 mg/dL [facility] LABORATORYOrdered By: Patricia Gipson on 04-20-2022 Potassium [Moles/Vol] 3.6 mmol/L Invalid Interpretation Code 3.5 - 5.1 mmol/L AO ADM SS HbA1c (Bld) [Mass fraction] 8.4 % Invalid Interpretation Code 4.3 - 6.4 % AO ADM SS LABORATORYOrdered By: Niurka Oliveros on 04-20-2022 Basophil, Absolute 0.0 103/mcL Invalid Interpretation Code 0.0 - 0.2 10^3/mcL AO Workflow SS Basophils/100 WBC (Bld) 0.5 % Invalid Interpretation Code 0.0 - 2.5 % AO Workflow SS Calcium [Mass/Vol] 9.2 mg/dL Invalid Interpretation Code 8.4 - 10.2 mg/dL AO ADM SS Chloride [Moles/Vol] 105 mmol/L Invalid Interpretation Code 98 - 107 mmol/L AO ADM SS CO2 [Moles/Vol] 29 mmol/L Invalid Interpretation Code 23 - 31 mmol/L AO ADM SS Creatinine [Mass/Vol] 0.94 mg/dL Invalid Interpretation Code 0.55 - 1.02 mg/dL AO ADM SS Electrolyte Balance 8.0 mEq/L Invalid Interpretation Code 4.0 - 15.0 mEq/L AO ADM SS Eosinophil, Absolute 0.2 103/mcL Invalid Interpretation Code 0.0 - 0.4 10^3/mcL AO Workflow SS Eosinophils/100 WBC (Bld) 2.5 % Invalid Interpretation Code 0.0 - 7.0 % AO Workflow SS Erythrocyte distribution width (RBC) [Ratio] 17.9 % Invalid Interpretation Code 11.5 - 14.5 % AO Workflow SS Glucose [Mass/Vol] 212 mg/dL Invalid Interpretation Code 80 - 115 mg/dL AO ADM SS Hematocrit (Bld) [Volume fraction] 30.8 % Invalid Interpretation Code 37.0 - 47.0 % AO Workflow SS Hemoglobin (Bld) [Mass/Vol] 10.6 G/dL Invalid Interpretation Code 12.0 - 16.0 G/dL AO Workflow SS INR Coag (PPP) [Relative time] 3.0 {INR} Invalid Interpretation Code 0.9 - 1.2 ratio AO Coag SS Lymphocyte, Absolute 2.2 103/mcL Invalid Interpretation Code 0.8 - 3.9 10^3/mcL AO Workflow SS Lymphocytes/100 WBC (Bld) 28.8 % Invalid Interpretation Code 10.0 - 50.0 % AO Workflow SS Magnesium [Mass/Vol] 1.8 mg/dL Invalid Interpretation Code 1.8 - 2.4 mg/dL AO ADM SS MCH (RBC) [Entitic mass] 27.6 pg Invalid Interpretation Code 27.0 - 31.2 pg AO Workflow SS MCHC 34.5 G/dL Invalid Interpretation Code 33.0 - 37.0 G/dL AO Workflow SS MCV (RBC) [Entitic vol] 80.0 fL Invalid Interpretation Code 80.0 - 94.0 fL AO Workflow SS Monocyte, Absolute 0.5 103/mcL Invalid Interpretation Code 0.2 - 1.0 10^3/mcL AO Workflow SS Monocytes/100 WBC (Bld) 6.7 % Invalid Interpretation Code 1.7 - 13.0 % AO Workflow SS Neutrophil, Absolute 4.8 103/mcL Invalid Interpretation Code 2.9 - 6.2 10^3/mcL AO Workflow SS Neutrophils/100 WBC (Bld) 61.5 % Invalid Interpretation Code 37.0 - 80.0 % AO Workflow SS Platelet mean volume (Bld) [Entitic vol] 7.5 fL Invalid Interpretation Code 7.4 - 10.4 fL AO Workflow SS Platelets (Bld) [#/Vol] 345 103/mcL Invalid Interpretation Code 130 - 400 10^3/mcL AO Workflow SS Potassium [Moles/Vol] 2.7 mmol/L Invalid Interpretation Code 3.5 - 5.1 mmol/L AO ADM SS PT Coag (PPP) [Time] 35.0 s Invalid Interpretation Code 9.7 - 14.3 seconds AO Coag SS RBC (Bld) [#/Vol] 3.84 106/mcL Invalid Interpretation Code 4.20 - 5.40 10^6/mcL AO Workflow SS Sodium [Moles/Vol] 142 mmol/L Invalid Interpretation Code 136 - 145 mmol/L AO ADM SS Urea nitrogen [Mass/Vol] 13 mg/dL Invalid Interpretation Code 7 - 18 mg/dL AO ADM SS Urea nitrogen/Creatinine [Mass ratio] 14 ratio Invalid Interpretation Code ratio AO ADM SS WBC 7.8 103/mcL Invalid Interpretation Code 4.6 - 10.8 10^3/mcL AO Workflow SS LABORATORYOrdered By: SYSTEM SYSTEM on 04-20-2022 GFR 72 ml/min/1.73sqm Invalid Interpretation Code AO Chemistry S GFR Non- 59 ml/min/1.73sqm Invalid Interpretation Code AO Chemistry S Monocyte distribution width Auto (Bld) [Entitic vol] Not Performed 1 *NA* (04/20/22 6:05 AM) Invalid Interpretation Code 0.00 - 20.00 AO Hematology S Comment on above: Result Comment: MDW testing performed only on adult ER patients between the ages of 18-89 years. LABORATORYOrdered By: Rocco Schaefer on 04-19-2022 Blood Glucose Interventions Administered agent to decrease blood sugar (04/19/22 9:04 PM) [facility] LABORATORYOrdered By: Dorota Gutierrez on 04-19-2022 Magnesium [Mass/Vol] 2.4 mg/dL Invalid Interpretation Code 1.8 - 2.4 mg/dL AO ADM SS Potassium [Moles/Vol] 3.1 mmol/L Invalid Interpretation Code 3.5 - 5.1 mmol/L AO ADM SS LABORATORYOrdered By: Susanna Espino on 04-19-2022 Troponin I.cardiac DL <= 0.01 ng/mL [Mass/Vol] 11.5 ng/L Invalid Interpretation Code 0.0 - 51.4 ng/L AO ADM SS Calcium [Mass/Vol] 7.6 mg/dL Invalid Interpretation Code 8.4 - 10.2 mg/dL AO ADM SS Chloride [Moles/Vol] 108 mmol/L Invalid Interpretation Code 98 - 107 mmol/L AO ADM SS CO2 [Moles/Vol] 24 mmol/L Invalid Interpretation Code 23 - 31 mmol/L AO ADM SS Creatinine [Mass/Vol] 0.87 mg/dL Invalid Interpretation Code 0.55 - 1.02 mg/dL AO ADM SS Electrolyte Balance 11.0 mEq/L Invalid Interpretation Code 4.0 - 15.0 mEq/L AO ADM SS Glucose [Mass/Vol] 268 mg/dL Invalid Interpretation Code 80 - 115 mg/dL AO ADM SS Sodium [Moles/Vol] 143 mmol/L Invalid Interpretation Code 136 - 145 mmol/L AO ADM SS Urea nitrogen [Mass/Vol] 11 mg/dL Invalid Interpretation Code 7 - 18 mg/dL AO ADM SS Urea nitrogen/Creatinine [Mass ratio] 13 ratio Invalid Interpretation Code 7 - 27 ratio AO ADM SS Basophil, Absolute 0.0 103/mcL Invalid Interpretation Code 0.0 - 0.2 10^3/mcL AO Workflow SS Basophils/100 WBC (Bld) 0.4 % Invalid Interpretation Code 0.0 - 2.5 % AO Workflow SS Eosinophil, Absolute 0.2 103/mcL Invalid Interpretation Code 0.0 - 0.4 10^3/mcL AO Workflow SS Eosinophils/100 WBC (Bld) 2.0 % Invalid Interpretation Code 0.0 - 7.0 % AO Workflow SS Erythrocyte distribution width (RBC) [Ratio] 17.7 % Invalid Interpretation Code 11.5 - 14.5 % AO Workflow SS Hematocrit (Bld) [Volume fraction] 31.1 % Invalid Interpretation Code 37.0 - 47.0 % AO Workflow SS Hemoglobin (Bld) [Mass/Vol] 10.6 G/dL Invalid Interpretation Code 12.0 - 16.0 G/dL AO Workflow SS INR Coag (PPP) [Relative time] 3.9 {INR} Invalid Interpretation Code 0.9 - 1.2 ratio AO Coag SS Lymphocyte, Absolute 2.2 103/mcL Invalid Interpretation Code 0.8 - 3.9 10^3/mcL AO Workflow SS Lymphocytes/100 WBC (Bld) 26.6 % Invalid Interpretation Code 10.0 - 50.0 % AO Workflow SS Magnesium [Mass/Vol] 1.6 mg/dL Invalid Interpretation Code 1.8 - 2.4 mg/dL AO ADM SS MCH (RBC) [Entitic mass] 27.0 pg Invalid Interpretation Code 27.0 - 31.2 pg AO Workflow SS MCHC 34.0 G/dL Invalid Interpretation Code 33.0 - 37.0 G/dL AO Workflow SS MCV (RBC) [Entitic vol] 79.5 fL Invalid Interpretation Code 80.0 - 94.0 fL AO Workflow SS Monocyte, Absolute 0.5 103/mcL Invalid Interpretation Code 0.2 - 1.0 10^3/mcL AO Workflow SS Monocytes/100 WBC (Bld) 5.8 % Invalid Interpretation Code 1.7 - 13.0 % AO Workflow SS Neutrophil, Absolute 5.3 103/mcL Invalid Interpretation Code 2.9 - 6.2 10^3/mcL AO Workflow SS Neutrophils/100 WBC (Bld) 65.2 % Invalid Interpretation Code 37.0 - 80.0 % AO Workflow SS Platelet mean volume (Bld) [Entitic vol] 7.6 fL Invalid Interpretation Code 7.4 - 10.4 fL AO Workflow SS Platelets (Bld) [#/Vol] 344 103/mcL Invalid Interpretation Code 130 - 400 10^3/mcL AO Workflow SS PT Coag (PPP) [Time] 44.8 s Invalid Interpretation Code 9.7 - 14.3 seconds AO Coag SS RBC (Bld) [#/Vol] 3.92 106/mcL Invalid Interpretation Code 4.20 - 5.40 10^6/mcL AO Workflow SS Troponin I.cardiac DL <= 0.01 ng/mL [Mass/Vol] 14.3 ng/L Invalid Interpretation Code 0.0 - 51.4 ng/L AO ADM SS WBC 8.2 103/mcL Invalid Interpretation Code 4.6 - 10.8 10^3/mcL AO Workflow SS LABORATORYOrdered By: SYSTEM SYSTEM on 04-19-2022 GFR 79 ml/min/1.73sqm Invalid Interpretation Code AO Chemistry S GFR Non- 65 ml/min/1.73sqm Invalid Interpretation Code AO Chemistry S Monocyte distribution width Auto (Bld) [Entitic vol] Not Performed 2 *NA* (04/19/22 5:33 AM) Invalid Interpretation Code 0.00 - 20.00 AO Hematology S Comment on above: Result Comment: MDW testing performed only on adult ER patients between the ages of 18-89 years. LABORATORYOrdered By: Rosy enriquez on 04-19-2022 Blood Glucose Interventions Administered agent to decrease blood sugar (04/19/22 7:36 AM) [facility] LABORATORYOrdered By: Vale Haro on 04-18-2022 INR Coag (PPP) [Relative time] 4.1 {INR} Invalid Interpretation Code 0.9 - 1.2 ratio AO Coag SS PT Coag (PPP) [Time] 47.7 s Invalid Interpretation Code 9.7 - 14.3 seconds AO Coag SS LABORATORYOrdered By: Patricia Gipson on 04-18-2022 Troponin I.cardiac DL <= 0.01 ng/mL [Mass/Vol] 17.3 ng/L Invalid Interpretation Code 0.0 - 51.4 ng/L AO ADM SS LABORATORYOrdered By: Aniket Woodall on 04-18-2022 Albumin BCP dye [Mass/Vol] 3.8 G/dL Invalid Interpretation Code 3.4 - 4.8 G/dL AO ADM SS Albumin/Globulin [Mass ratio] 1.3 {ratio} Invalid Interpretation Code 1.1 - 2.5 ratio AO ADM SS ALP [Catalytic activity/Vol] 87 U/L Invalid Interpretation Code 40 - 135 U/L AO ADM SS ALT With P-5'-P [Catalytic activity/Vol] 22 U/L Invalid Interpretation Code 14 - 59 U/L AO ADM SS AST With P-5'-P [Catalytic activity/Vol] 17 U/L Invalid Interpretation Code 10 - 40 U/L AO ADM SS Bilirubin [Mass/Vol] 0.4 mg/dL Invalid Interpretation Code 0.2 - 1.0 mg/dL AO ADM SS Calcium [Mass/Vol] 9.6 mg/dL Invalid Interpretation Code 8.4 - 10.2 mg/dL AO ADM SS Chloride [Moles/Vol] 101 mmol/L Invalid Interpretation Code 98 - 107 mmol/L AO ADM SS CO2 [Moles/Vol] 27 mmol/L Invalid Interpretation Code 23 - 31 mmol/L AO ADM SS Creatinine [Mass/Vol] 1.18 mg/dL Invalid Interpretation Code 0.55 - 1.02 mg/dL AO ADM SS Electrolyte Balance 12.0 mEq/L Invalid Interpretation Code 4.0 - 15.0 mEq/L AO ADM SS Globulin 2.9 G/dL Invalid Interpretation Code AO ADM SS Glucose [Mass/Vol] 264 mg/dL Invalid Interpretation Code 80 - 115 mg/dL AO ADM SS Protein [Mass/Vol] 6.7 G/dL Invalid Interpretation Code 6.4 - 8.2 G/dL AO ADM SS Sodium [Moles/Vol] 140 mmol/L Invalid Interpretation Code 136 - 145 mmol/L AO ADM SS Urea nitrogen [Mass/Vol] 17 mg/dL Invalid Interpretation Code 7 - 18 mg/dL AO ADM SS Urea nitrogen/Creatinine [Mass ratio] 14 ratio Invalid Interpretation Code 7 - 27 ratio AO ADM SS LABORATORYOrdered By: Dorota Francois on 04-18-2022 Basophil, Absolute 0.1 103/mcL Invalid Interpretation Code 0.0 - 0.2 10^3/mcL AO Workflow SS Basophils/100 WBC (Bld) 0.5 % Invalid Interpretation Code 0.0 - 2.5 % AO Workflow SS Eosinophil, Absolute 0.1 103/mcL Invalid Interpretation Code 0.0 - 0.4 10^3/mcL AO Workflow SS Eosinophils/100 WBC (Bld) 0.8 % Invalid Interpretation Code 0.0 - 7.0 % AO Workflow SS Erythrocyte distribution width (RBC) [Ratio] 17.5 % Invalid Interpretation Code 11.5 - 14.5 % AO Workflow SS Hematocrit (Bld) [Volume fraction] 36.1 % Invalid Interpretation Code 37.0 - 47.0 % AO Workflow SS Hemoglobin (Bld) [Mass/Vol] 12.5 G/dL Invalid Interpretation Code 12.0 - 16.0 G/dL AO Workflow SS Lymphocyte, Absolute 1.7 103/mcL Invalid Interpretation Code 0.8 - 3.9 10^3/mcL AO Workflow SS Lymphocytes/100 WBC (Bld) 13.1 % Invalid Interpretation Code 10.0 - 50.0 % AO Workflow SS MCH (RBC) [Entitic mass] 26.9 pg Invalid Interpretation Code 27.0 - 31.2 pg AO Workflow SS MCHC 34.5 G/dL Invalid Interpretation Code 33.0 - 37.0 G/dL AO Workflow SS MCV (RBC) [Entitic vol] 77.8 fL Invalid Interpretation Code 80.0 - 94.0 fL AO Workflow SS Monocyte distribution width Auto (Bld) [Entitic vol] 19.63 Invalid Interpretation Code 0.00 - 20.00 AO Workflow SS Comment on above: Result Comment: For ED adult patients suspected of sepsis, MDW<=20.0 does not rule out sepsis or risk of sepsis Monocyte, Absolute 0.5 103/mcL Invalid Interpretation Code 0.2 - 1.0 10^3/mcL AO Workflow SS Monocytes/100 WBC (Bld) 4.1 % Invalid Interpretation Code 1.7 - 13.0 % AO Workflow SS Neutrophil, Absolute 10.3 103/mcL Invalid Interpretation Code 2.9 - 6.2 10^3/mcL AO Workflow SS Neutrophils/100 WBC (Bld) 81.5 % Invalid Interpretation Code 37.0 - 80.0 % AO Workflow SS Platelet mean volume (Bld) [Entitic vol] 7.4 fL Invalid Interpretation Code 7.4 - 10.4 fL AO Workflow SS Platelets (Bld) [#/Vol] 430 103/mcL Invalid Interpretation Code 130 - 400 10^3/mcL AO Workflow SS RBC (Bld) [#/Vol] 4.64 106/mcL Invalid Interpretation Code 4.20 - 5.40 10^6/mcL AO Workflow SS WBC 12.6 103/mcL Invalid Interpretation Code 4.6 - 10.8 10^3/mcL AO Workflow SS LABORATORYOrdered By: SYSTEM SYSTEM on 04-18-2022 GFR 55 ml/min/1.73sqm Invalid Interpretation Code AO Chemistry S GFR Non- 46 ml/min/1.73sqm Invalid Interpretation Code AO Chemistry S Magnesiumon 04-18-2022 Magnesium [Mass/Vol] 1.4 mg/dL Low 1.6-2.3 [facility] Comment on above: Performed By: #### M ACR5, HEMDF, LIPD2, CMP3 #### [facility] [address] [place] [address] Potassiumon 04-18-2022 Potassium [Moles/Vol] 2.2 mmol/L Critically low 3.5-5.1 [facility] Comment on above: Performed By: #### M ACR5, HEMDF, LIPD2, CMP3 #### [facility] [address] [place] [address] RF UGI w/o KUB w/ or w/o Del ay Flmon 04-12-2022 RF UGI w/o KUB w/ or w/o Delay Fl Patient Name: HEAVEN MONROE Fluoroscopy ACCESSION EXAM DATE/TIME PROCEDURE ORDERING PROVIDER [id number] 04/12/2022 09:26 EDT RF UGI w/o KUB and w/ or [id number] -CARL[facility] SALVADOR w/o Delay Flm CPT code 51962 Reason For Exam (RF UGI w/o KUB and w/ or w/o Delay Flm) Heartburn Report AIR CONTRAST UGI SERIES CLINICAL INDICATIONS: 66-year-old female: Epigastric pain with nausea. Heartburn. History of cholecystectomy. COMPARISON: RF upper GI 02/16/2022, RF upper GI 10/18/2021, upper GI endoscopy 05/31/2021. FLUOROSCOPY TIME: 0.33minutes. FLUOROSCOPIC EXPOSURES: 14 TECHNIQUE: Biphasic exam was performed with barium and air. FINDINGS: Barium and air are administered. The esophagus is studied in the upright as well as the horizontal positions. The esophagus is normal in course and caliber. Mild tertiary contractions were demonstrated within the distal esophagus. There is mild redirection of barium contents with stasis in the upper esophagus and decrease peristalsis, which may suggest an element of dysmotility. There is no hiatal hernia. Mild spontaneous gastroesophageal reflux is demonstrated. Barium flows freely from the esophagus into the stomach. Laparoscopic sleeve gastrectomy is seen with a longitudinal resection of the fundus, body, and antrum of the stomach. The Duodenum demonstrate normal mucosal pattern, with no discrete ulcer or mass. The visualized proximal jejunum is unremarkable. IMPRESSION: 1. Mild tertiary contractions within the distal esophagus. 2. Mild spontaneous gastroesophageal reflux. 3. Mild redirection of barium contents and stasis within the upper esophagus with decreased peristalsis consistent with esophageal dysmotility. 4. Postsurgical changes consistent with gastric sleeve surgery. Fluoroscopy Report Report Dictated on Final Dictated: 04/12/2022 12:43 pm Dictating Physician: MD SHEA JONATHAN R Signed Date and Time: 04/12/2022 1:12 pm Signed by: MD SHEA JONATHAN R Transcribed Date and Time: 04/12/2022 12:51 Normal [facility] LABORATORYOrdered By: Dorota Gutierrez on 04-09-2022 Albumin BCP dye [Mass/Vol] 3.6 G/dL Invalid Interpretation Code 3.4 - 4.8 G/dL AO ADM SS Albumin/Globulin [Mass ratio] 1.2 {ratio} Invalid Interpretation Code 1.1 - 2.5 ratio AO ADM SS ALP [Catalytic activity/Vol] 81 U/L Invalid Interpretation Code 40 - 135 U/L AO ADM SS ALT With P-5'-P [Catalytic activity/Vol] 17 U/L Invalid Interpretation Code 14 - 59 U/L AO ADM SS Appearance (U) Clear (04/09/22 3:34 AM) Invalid Interpretation Code Clear AO Auto Urine SS AST With P-5'-P [Catalytic activity/Vol] 17 U/L Invalid Interpretation Code 10 - 40 U/L AO ADM SS Basophil, Absolute 0.0 103/mcL Invalid Interpretation Code 0.0 - 0.2 10^3/mcL AO Workflow SS Basophils/100 WBC (Bld) 0.3 % Invalid Interpretation Code 0.0 - 2.5 % AO Workflow SS Bilirubin [Mass/Vol] 0.3 mg/dL Invalid Interpretation Code 0.2 - 1.0 mg/dL AO ADM SS Bilirubin Ql (U) Negative (04/09/22 3:34 AM) Invalid Interpretation Code Negative AO Auto Urine SS Calcium [Mass/Vol] 9.4 mg/dL Invalid Interpretation Code 8.4 - 10.2 mg/dL AO ADM SS Chloride [Moles/Vol] 99 mmol/L Invalid Interpretation Code 98 - 107 mmol/L AO ADM SS CO2 [Moles/Vol] 29 mmol/L Invalid Interpretation Code 23 - 31 mmol/L AO ADM SS Color (U) Yellow (04/09/22 3:34 AM) Invalid Interpretation Code AO Auto Urine SS Creatinine [Mass/Vol] 1.03 mg/dL Invalid Interpretation Code 0.55 - 1.02 mg/dL AO ADM SS Electrolyte Balance 6.0 mEq/L Invalid Interpretation Code 4.0 - 15.0 mEq/L AO ADM SS Eosinophil, Absolute 0.2 103/mcL Invalid Interpretation Code 0.0 - 0.4 10^3/mcL AO Workflow SS Eosinophils/100 WBC (Bld) 1.8 % Invalid Interpretation Code 0.0 - 7.0 % AO Workflow SS Erythrocyte distribution width (RBC) [Ratio] 18.2 % Invalid Interpretation Code 11.5 - 14.5 % AO Workflow SS Globulin 2.9 G/dL Invalid Interpretation Code AO ADM SS Glucose [Mass/Vol] 243 mg/dL Invalid Interpretation Code 80 - 115 mg/dL AO ADM SS Glucose Test strip (U) [Mass/Vol] 100 mg/dL Invalid Interpretation Code Negativemg/d L AO Auto Urine SS Hematocrit (Bld) [Volume fraction] 34.3 % Invalid Interpretation Code 37.0 - 47.0 % AO Workflow SS Hemoglobin (Bld) [Mass/Vol] 11.5 G/dL Invalid Interpretation Code 12.0 - 16.0 G/dL AO Workflow SS Hemoglobin Auto test strip (U) [Mass/Vol] Trace *ABN* (04/09/22 3:34 AM) Invalid Interpretation Code Negative AO Auto Urine SS Ketones Ql (U) Negative Invalid Interpretation Code Negativemg/d L AO Auto Urine SS Lipase [Catalytic activity/Vol] 265 U/L Invalid Interpretation Code 73 - 393 U/L AO ADM SS Lymphocyte, Absolute 2.1 103/mcL Invalid Interpretation Code 0.8 - 3.9 10^3/mcL AO Workflow SS Lymphocytes/100 WBC (Bld) 22.4 % Invalid Interpretation Code 10.0 - 50.0 % AO Workflow SS MCH (RBC) [Entitic mass] 26.6 pg Invalid Interpretation Code 27.0 - 31.2 pg AO Workflow SS MCHC 33.6 G/dL Invalid Interpretation Code 33.0 - 37.0 G/dL AO Workflow SS MCV (RBC) [Entitic vol] 79.2 fL Invalid Interpretation Code 80.0 - 94.0 fL AO Workflow SS Monocyte distribution width Auto (Bld) [Entitic vol] 17.93 Invalid Interpretation Code 0.00 - 20.00 AO Workflow SS Comment on above: Result Comment: For ED adult patients suspected of sepsis, MDW<=20.0 does not rule out sepsis or risk of sepsis Monocyte, Absolute 0.4 103/mcL Invalid Interpretation Code 0.2 - 1.0 10^3/mcL AO Workflow SS Monocytes/100 WBC (Bld) 4.7 % Invalid Interpretation Code 1.7 - 13.0 % AO Workflow SS Neutrophil, Absolute 6.6 103/mcL Invalid Interpretation Code 2.9 - 6.2 10^3/mcL AO Workflow SS Neutrophils/100 WBC (Bld) 70.8 % Invalid Interpretation Code 37.0 - 80.0 % AO Workflow SS Platelet mean volume (Bld) [Entitic vol] 7.4 fL Invalid Interpretation Code 7.4 - 10.4 fL AO Workflow SS Platelets (Bld) [#/Vol] 354 103/mcL Invalid Interpretation Code 130 - 400 10^3/mcL AO Workflow SS Potassium [Moles/Vol] 3.0 mmol/L Invalid Interpretation Code 3.5 - 5.1 mmol/L AO ADM SS Protein [Mass/Vol] 6.5 G/dL Invalid Interpretation Code 6.4 - 8.2 G/dL AO ADM SS RBC (Bld) [#/Vol] 4.33 106/mcL Invalid Interpretation Code 4.20 - 5.40 10^6/mcL AO Workflow SS Sodium [Moles/Vol] 134 mmol/L Invalid Interpretation Code 136 - 145 mmol/L AO ADM SS Troponin I.cardiac DL <= 0.01 ng/mL [Mass/Vol] 10.1 ng/L Invalid Interpretation Code 0.0 - 51.4 ng/L AO ADM SS UA Leuk Est Negative (04/09/22 3:34 AM) Invalid Interpretation Code Negative AO Auto Urine SS UA Nitrite Negative (04/09/22 3:34 AM) Invalid Interpretation Code Negative AO Auto Urine SS UA pH 5.5 (04/09/22 3:34 AM) Invalid Interpretation Code 5.0 - 8.0 AO Auto Urine SS UA Protein Negative Invalid Interpretation Code Negativemg/d L AO Auto Urine SS UA Spec Grav 1.015 (04/09/22 3:34 AM) Invalid Interpretation Code 1.015-1.025 AO Auto Urine SS UA Specimen Type Clean Catch (04/09/22 3:34 AM) Invalid Interpretation Code AO Auto Urine SS UA Urobilinogen 0.2 E.U./dL Invalid Interpretation Code 0.2-1.0E.U./ dL AO Auto Urine SS Urea nitrogen [Mass/Vol] 20 mg/dL Invalid Interpretation Code 7 - 18 mg/dL AO ADM SS Urea nitrogen/Creatinine [Mass ratio] 19 ratio Invalid Interpretation Code 7 - 27 ratio AO ADM SS WBC 9.4 103/mcL Invalid Interpretation Code 4.6 - 10.8 10^3/mcL AO Workflow SS LABORATORYOrdered By: SYSTEM SYSTEM on 04-09-2022 GFR 65 ml/min/1.73sqm Invalid Interpretation Code AO Chemistry S GFR Non- 53 ml/min/1.73sqm Invalid Interpretation Code AO Chemistry S Zinc, Serumon 03-22-2022 Zinc, Serum 78.4 ug/dL Normal 60.0-120.0 [facility] [facility] Comment on above: Result Comment: INTE RPRETIVE INFORMATION: Zinc, Serum or Plasma Elevated results may be due to skin or collection-related contamination, including the use of a noncertified metal-free collection/transport tube. If contamination concerns exist due to elevated levels of serum/plasma zinc, confirmation with a second specimen collected in a certified metal-free tube is recommended. Circulating zinc concentrations are dependent on albumin status and are depressed with malnutrition. Zinc may also be lowered with infection, inflammation, stress, oral contraceptives, and . Zinc may be elevated with zinc supplementation or fasting. Elevated zinc concentrations may interfere with copper absorption. This test was developed and its performance characteristics determined by [employer]. It has not been cleared or approved by the [place] Food and Drug Administration. This test was performed in a CLIA certified laboratory and is intended for clinical purposes. Performed By: [employer] [address] [place] [id number] Product Safety Administrator: Sweta Mcmanus MD Performed By: #### M ACR5, HEMDF, LIPD2, CMP3 #### [facility] [address] [facility] [place] [address] CBCon 03-20-2022 Hematocrit (Bld) [Volume fraction] 36.7 % 35.0 - 47.0 % [facility] Hemoglobin (Bld) [Mass/Vol] 12.1 g/dL 11.7 - 16.0 g/dL [facility] Interpretation and review of laboratory results Abnormal [facility] MCH (RBC) [Entitic mass] 26.8 pg 26.0 - 34.0 pg [facility] MCHC (RBC) [Mass/Vol] 33.0 % 32.0 - 36.0 % [facility] MCV (RBC) [Entitic vol] 81.2 fL 79.0 - 98.0 fL [facility] Platelet distribution width (Bld) [Ratio] 16.4 % High 11.5 - 14.5 % [facility] Platelet mean volume (Bld) [Entitic vol] 9.5 fL 7.4 - 12.4 fL [facility] Comment on above: MPV is a calculated measurement using platelet volume ratio. Platelets (Bld) [#/Vol] 338 10*3/uL 140 - 440 10*3/uL [facility] RBC (Bld) [#/Vol] 4.52 10*6/uL 3.80 - 5.2 0 10*6/uL [facility] WBC (Bld) [#/Vol] 6.9 10*3/uL 3.6 - 10.7 10*3/uL [facility] Test Performed by [facility], [address] , [place], [place] [address] [facility] Comp Metabolic Panelon 03-20 Calcium [Mass/Vol] 9.9 mg/dL Normal 8.4-10.4 [facility] Comment on above: Performed By: #### M ACR5, HEMDF, LIPD2, CMP3 #### [facility] [address] [place] [address] ALP [Catalytic activity/Vol] 61 U/L Normal 38-126 [facility] Comment on above: Performed By: #### M ACR5, HEMDF, LIPD2, CMP3 #### [facility] [address] [place] [address] ALT [Catalytic activity/Vol] 25 U/L Normal 0-34 [facility] Comment on above: Result Comment: The ALT test is performed by an updated assay method. Please note that the reference intervals have been changed and are now sex specific. Performed By: #### M ACR5, HEMDF, LIPD2, CMP3 #### [facility] [address] [place] [address] Anion gap [Moles/Vol] 11 mmol/L Normal 3-13 [facility] Comment on above: Performed By: #### M ACR5, HEMDF, LIPD2, CMP3 #### [facility] [address] [place] [address] AST [Catalytic activity/Vol] 32 U/L Normal 15-46 [facility] Comment on above: Performed By: #### M ACR5, HEMDF, LIPD2, CMP3 #### [facility] [address] [place] [address] Bilirubin [Mass/Vol] 0.5 mg/dL Normal 0.2-1.3 [facility] Comment on above: Performed By: #### M ACR5, HEMDF, LIPD2, CMP3 #### [facility] [address] [place] [address] CO2 [Moles/Vol] 28 mmol/L Normal 22-30 [facility] Comment on above: Performed By: #### M ACR5, HEMDF, LIPD2, CMP3 #### [facility] [address] [place] [address] Creatinine [Mass/Vol] 0.88 mg/dL Normal 0.52-1.25 [facility] Comment on above: Performed By: #### M ACR5, HEMDF, LIPD2, CMP3 #### [facility] [address] [place] [address] GFR/1.73 sq M.predicted among blacks MDRD (S/P/Bld) [Vol rate/Area] 78.5 mL/min/{1.73_m2} Normal >60 [facility] Comment on above: Performed By: #### M ACR5, HEMDF, LIPD2, CMP3 #### [facility] [address] [place] [address] GFR/1.73 sq M.predicted among non-blacks MDRD (S/P/Bld) [Vol rate/Area] 67.7 mL/min/{1.73_m2} Normal >60 [facility] Comment on above: Result Comment: KDIG O guidelines provide the following GFR categories: Stage GFR(ml/min/1.73 m2) Terms G1 >=90 Normal or high G2 60-89 Mildly decreased* G3a 45-59 Mildly to moderately decreased G3b 30-44 Moderately to severely decreased G4 15-29 Severely decreased G5 <15 Kidney failure *Relative to young adult level. In the absence of evidence of kidney damage, neither GFR category G1 nor G2 fulfill the criteria for CKD. The CKD-EPI equation is validated in individuals 18 years of age and older. Currently the best equation for estimating glomerular filtration rate (GFR) from serum creatinine in children is the Bedside Ackerman equation. It is less accurate in patients with extremes of muscle mass, restriction of dietary protein, ingestion of creatine, extra-renal metabolism of creatinine, or treatment with medications that affect renal tubular creatinine secretion. Performed By: #### M ACR5, HEMDF, LIPD2, CMP3 #### [facility] [address] [place] [address] Glucose [Mass/Vol] 165 mg/dL High 70-100 [facility] Comment on above: Performed By: #### M ACR5, HEMDF, LIPD2, CMP3 #### [facility] [address] [place] [address] Protein [Mass/Vol] 6.9 g/dL Normal 6.3-8.2 [facility] Comment on above: Performed By: #### M ACR5, HEMDF, LIPD2, CMP3 #### [facility] [address] [place] [address] Urea nitrogen [Mass/Vol] 19 mg/dL Normal 9-20 [facility] Comment on above: Performed By: #### M ACR5, HEMDF, LIPD2, CMP3 #### [facility] [address] [place] [address] Potassium [Moles/Vol] 3.1 mmol/L Low 3.5-5.1 [facility] Comment on above: Performed By: #### M ACR5, HEMDF, LIPD2, CMP3 #### [facility] [address] [place] [address] Albumin [Mass/Vol] 4.2 g/dL Normal 3.5-5.0 [facility] Comment on above: Performed By: #### M ACR5, HEMDF, LIPD2, CMP3 #### [facility] [address] [place] [address] Chloride [Moles/Vol] 100 mmol/L Normal 98-107 [facility] Comment on above: Performed By: #### M ACR5, HEMDF, LIPD2, CMP3 #### [facility] [address] [place] [address] Sodium [Moles/Vol] 139 mmol/L Normal 135-145 [facility] Comment on above: Performed By: #### M ACR5, HEMDF, LIPD2, CMP3 #### [facility] [address] [place] [address] Comprehensive Metabolic Pane elder 03-20-2022 Albumin [Mass/Vol] 4.2 g/dL 3.5 - 5.0 g/dL [facility] ALP (Bld) [Catalytic activity/Vol] 61 U/L 38 - 126 U/L [facility] ALT [Catalytic activity/Vol] 25 U/L 0 - 34 U/L [facility] Comment on above: The ALT test is perf ormed by an updated assay method. Please note that the reference intervals have been changed and are now sex specific. Anion gap [Moles/Vol] 11 mmol/L 3 - 13 mmol/L [facility] AST [Catalytic activity/Vol] 32 U/L 15 - 46 U/L [facility] Bilirubin [Mass/Vol] 0.5 mg/dL 0.2 - 1 .3 mg/dL [facility] Calcium [Mass/Vol] 9.9 mg/dL 8.4 - 10. 4 mg/dL [facility] Chloride [Moles/Vol] 100 mmol/L 98 - 10 7 mmol/L [facility] CO2 [Moles/Vol] 28 mmol/L 22 - 30 mmol/L [facility] Creatinine [Mass/Vol] 0.88 mg/dL 0.52 - 1.25 mg/dL [facility] EGFR IF NonAfrican Ecuadorean 67.7 mL/min >60 [facility] Comment on above: KDIGO guidelines pro vide the following GFR categories: Stage GFR(ml/min/1.73 m2) Terms G1 >=90 Normal or high G2 60-89 Mildly decreased* G3a 45-59 Mildly to moderately decreased G3b 30-44 Moderately to severely decreased G4 15-29 Severely decreased G5 <15 Kidney failure *Relative to young adult level. In the absence of evidence of kidney damage, neither GFR category G1 nor G2 fulfill the criteria for CKD. The CKD-EPI equation is validated in individuals 18 years of age and older. Currently the best equation for estimating glomerular filtration rate (GFR) from serum creatinine in children is the Bedside Ackerman equation. It is less accurate in patients with extremes of muscle mass, restriction of dietary protein, ingestion of creatine, extra-renal metabolism of creatinine, or treatment with medications that affect renal tubular creatinine secretion. Free PSA/Total PSA [Mass fraction] 6.9 g/dL 6.3 - 8.2 g/dL [facility] GFR/1.73 sq M.predicted among blacks MDRD (S/P/Bld) [Vol rate/Area] 78.5 mL/min/{1.73_m2} >60 [facility] Glucose [Mass/Vol] 165 mg/dL High 70 - 100 mg/dL [facility] Potassium [Moles/Vol] 3.1 mmol/L Low 3.5 - 5.1 mmol/L [facility] Sodium [Moles/Vol] 139 mmol/L 135 - 145 mmol/L [facility] Urea nitrogen (BldV) [Mass/Vol] 19 mg/dL 9 - 20 mg/dL [facility] Ferritinon 03-20-2022 Ferritin [Mass/Vol] 41 ng/mL Normal 11-264 [facility] Comment on above: Performed By: #### M ACR5, HEMDF, LIPD2, CMP3 #### [facility] [address] [place] [address] Ferritin [Mass/Vol] 41 ng/mL 11 - 264 ng/mL [facility] Test Performed by [facility], [address] , [address] LAB [facility] Folateon 03-20-2022 Folate 7.5 ng/mL Normal [facility] Comment on above: Result Comment: >2.8 Performed By: #### M ACR5, HEMDF, LIPD2, CMP3 #### [facility] [address] [place] [address] Folate 7.5 ng/mL [facility] Comment on above: >2.8 Hemogramon 03-20-2022 Erythrocyte distribution width (RBC) [Ratio] 16.4 % High 11.5-14.5 [facility] Comment on above: Performed By: #### M ACR5, HEMDF, LIPD2, CMP3 #### [facility] [address] [place] [address] Hematocrit (Bld) [Volume fraction] 36.7 % Normal 35.0-47.0 [facility] Comment on above: Performed By: #### M ACR5, HEMDF, LIPD2, CMP3 #### [facility] [address] [place] [address] Hemoglobin (Bld) [Mass/Vol] 12.1 g/dL Normal 11.7-16.0 [facility] Comment on above: Performed By: #### M ACR5, HEMDF, LIPD2, CMP3 #### [facility] [address] [place] [address] MCH (RBC) [Entitic mass] 26.8 pg Normal 26.0-34.0 [facility] Comment on above: Performed By: #### M ACR5, HEMDF, LIPD2, CMP3 #### [facility] [address] [place] [address] MCHC 33.0 % Normal 32.0-36.0 [facility] Comment on above: Performed By: #### M ACR5, HEMDF, LIPD2, CMP3 #### [facility] [address] [place] [address] MCV (RBC) [Entitic vol] 81.2 fL Normal 79.0-98.0 [facility] Comment on above: Performed By: #### M ACR5, HEMDF, LIPD2, CMP3 #### [facility] [address] [place] [address] Platelet mean volume (Bld) [Entitic vol] 9.5 fL Normal 7.4-12.4 [facility] Comment on above: Result Comment: MPV is a calculated measurement using platelet volume ratio. Performed By: #### M ACR5, HEMDF, LIPD2, CMP3 #### [facility] [address] [place] [address] Platelets (Bld) [#/Vol] 338 10*3/uL Normal 140-440 [facility] Comment on above: Performed By: #### M ACR5, HEMDF, LIPD2, CMP3 #### [facility] [address] [place] [address] RBC (Bld) [#/Vol] 4.52 10*6/uL Normal 3.80-5.20 [facility] Comment on above: Performed By: #### M ACR5, HEMDF, LIPD2, CMP3 #### [facility] [address] [place] [address] WBC (Bld) [#/Vol] 6.9 10*3/uL Normal 3.6-10.7 [facility] Comment on above: Performed By: #### M ACR5, HEMDF, LIPD2, CMP3 #### [facility] [address] [place] [address] Ironon 03-20-2022 Iron [Mass/Vol] 56 ug/dL 37 - 170 ug/dL [facility] Test Performed by [facility], [address] , [address] LAB [facility] Iron, Totalon 03-20-2022 Iron, Total 56 ug/dL Normal 37-170 [facility] Comment on above: Performed By: #### M ACR5, HEMDF, LIPD2, CMP3 #### [facility] [address] [place] [address] Magnesiumon 03-20-2022 Magnesium [Mass/Vol] 1.2 mg/dL Low 1.6-2.3 [facility] Comment on above: Performed By: #### M ACR5, HEMDF, LIPD2, CMP3 #### [facility] [address] [place] [address] Magnesium [Mass/Vol] 1.2 mg/dL Low 1.6 - 2 .3 mg/dL [facility] No Panel Informationon 03-20 Test Performed by [facility], [address] , [address] LAB [facility] Interpretation and review of laboratory results Abnormal [facility] Test Performed by [facility], [address] , [address] [facility] Vitamin B12on 03-20-2022 Cobalamin (Vitamin B12) [Mass/Vol] 359 pg/mL Normal 239-931 [facility] Comment on above: Performed By: #### M ACR5, HEMDF, LIPD2, CMP3 #### [facility] [address] [place] [address] Cobalamin (Vitamin B12) [Mass/Vol] 359 pg/mL 239 - 931 pg/mL [facility] Basic Metabolic Panelon 01-23 Calcium [Mass/Vol] 8.9 mg/dL Normal 8.4-10.4 [facility] Comment on above: Performed By: #### B GLU #### [address] [address] Anion gap [Moles/Vol] 9 mmol/L Normal 3-13 [facility] Comment on above: Performed By: #### B GLU #### [facility] [address], [place] CO2 [Moles/Vol] 22 mmol/L Normal 22-30 [facility] Comment on above: Performed By: #### B GLU #### [facility] [address], [place] Creatinine [Mass/Vol] 0.52 mg/dL Normal 0.52-1.25 [facility] Comment on above: Performed By: #### B GLU #### [facility] [address], [place] eGFR OTHER > 90.0 Normal >60 [facility] Comment on above: Result Comment: KDIG O guidelines provide the following GFR categories: Stage GFR(ml/min/1.73 m2) Terms G1 >=90 Normal or high G2 60-89 Mildly decreased* G3a 45-59 Mildly to moderately decreased G3b 30-44 Moderately to severely decreased G4 15-29 Severely decreased G5 <15 Kidney failure *Relative to young adult level. In the absence of evidence of kidney damage, neither GFR category G1 nor G2 fulfill the criteria for CKD. The CKD-EPI equation is validated in individuals 18 years of age and older. Currently the best equation for estimating glomerular filtration rate (GFR) from serum creatinine in children is the Bedside Ackerman equation. It is less accurate in patients with extremes of muscle mass, restriction of dietary protein, ingestion of creatine, extra-renal metabolism of creatinine, or treatment with medications that affect renal tubular creatinine secretion. Performed By: #### B GLU #### [facility] [address], [place] GFR/1.73 sq M.predicted among blacks MDRD (S/P/Bld) [Vol rate/Area] mL/min/{1.73_m2} Normal >60 [facility] Comment on above: Performed By: #### B GLU #### [facility] [address], [place] Glucose [Mass/Vol] 185 mg/dL High 70-100 [facility] Comment on above: Performed By: #### B GLU #### [facility] [address], [place] Urea nitrogen [Mass/Vol] 13 mg/dL Normal 9-20 [facility] Comment on above: Performed By: #### B GLU #### [place] [address] [address], [place] Chloride [Moles/Vol] 102 mmol/L Normal 98-107 [facility] Comment on above: Performed By: #### B GLU #### [place] [address] [address], [place] Potassium [Moles/Vol] 4.0 mmol/L Normal 3.5-5.1 [facility] Comment on above: Performed By: #### B GLU #### [place] [address] [address], [place] Sodium [Moles/Vol] 133 mmol/L Low 135-145 [facility] Comment on above: Performed By: #### B GLU #### [place] [address] [address], [place] Anion gap [Moles/Vol] 9 mmol/L 3 - 13 mmol/L [facility] Calcium [Mass/Vol] 8.9 mg/dL 8.4 - 10. 4 mg/dL [facility] Chloride [Moles/Vol] 102 mmol/L 98 - 10 7 mmol/L [facility] CO2 [Moles/Vol] 22 mmol/L 22 - 30 mmol/L [facility] Creatinine [Mass/Vol] 0.52 mg/dL 0.52 - 1.25 mg/dL [facility] EGFR IF NonAfrican Ecuadorean >90.0 >60 mL/min [facility] Comment on above: KDIGO guidelines pro vide the following GFR categories: Stage GFR(ml/min/1.73 m2) Terms G1 >=90 Normal or high G2 60-89 Mildly decreased* G3a 45-59 Mildly to moderately decreased G3b 30-44 Moderately to severely decreased G4 15-29 Severely decreased G5 <15 Kidney failure *Relative to young adult level. In the absence of evidence of kidney damage, neither GFR category G1 nor G2 fulfill the criteria for CKD. The CKD-EPI equation is validated in individuals 18 years of age and older. Currently the best equation for estimating glomerular filtration rate (GFR) from serum creatinine in children is the Bedside Ackerman equation. It is less accurate in patients with extremes of muscle mass, restriction of dietary protein, ingestion of creatine, extra-renal metabolism of creatinine, or treatment with medications that affect renal tubular creatinine secretion. GFR/1.73 sq M.predicted among blacks MDRD (S/P/Bld) [Vol rate/Area] mL/min/{1.73_m2} >60 mL/min [facility] Glucose [Mass/Vol] 185 mg/dL High 70 - 100 mg/dL [facility] Interpretation and review of laboratory results Abnormal [facility] Potassium [Moles/Vol] 4.0 mmol/L 3.5 - 5.1 mmol/L [facility] Sodium [Moles/Vol] 133 mmol/L Low 135 - 145 mmol/L [facility] Urea nitrogen (BldV) [Mass/Vol] 13 mg/dL 9 - 20 mg/dL [facility] Test Performed by [id number] [place] [address] [facility] CBCon 02-16-2022 Hematocrit (Bld) [Volume fraction] 37.1 % 35.0 - 47.0 % [facility] Hemoglobin.gastrointes tinal spec 1 Ql (Stl) 12.0 g/dL 11.7 - 16.0 g/dL [facility] Interpretation and review of laboratory results Abnormal [facility] MCH (RBC) [Entitic mass] 25.5 pg Low 26.0 - 34.0 pg [facility] MCHC (RBC) [Mass/Vol] 32.3 % 32.0 - 36.0 % [facility] MCV (RBC) [Entitic vol] 78.8 fL Low 79.0 - 98.0 fL [facility] Platelet distribution width (Bld) [Ratio] 17.4 % High 11.5 - 14.5 % [facility] Platelet mean volume (Bld) [Entitic vol] 7.5 fL 7.4 - 12.4 fL [facility] Comment on above: MPV is a calculated measurement using platelet volume ratio. Platelets (Bld) [#/Vol] 444 10*3/uL High 140 - 440 10*3/uL [facility] RBC (Bld) [#/Vol] 4.71 10*6/uL 3.80 - 5.2 0 10*6/uL [facility] WBC (Bld) [#/Vol] 10.0 10*3/uL 3.6 - 10.7 10*3/uL [facility] Test Performed by [facility], [address] [place] [id number] [facility] UGIon 02-16-2022 Patient Name: HEAVEN MONROE Fluoroscopy ACCESSION EXAM DATE/TIME PROCEDURE ORDERING PROVIDER [id number] 02/16/2022 07:43 EDT RF UGI w/o KUB & w/ or [id number] -MOOERS, TREVOR w/o Delay Flm CPT code 93958 Reason For Exam (RF UGI w/o KUB & w/ or w/o Delay Flm) s/p bariatric surgery Report GASTROGRAFIN UGI SERIES: CLINICAL INDICATIONS: Post op day one gastric sleeve, evaluate for leak. History of cholecystectomy. COMPARISON: RF upper GI 10/18/2021, upper GI endoscopy 05/31/2021. FLUOROSCOPY TIME: 0.9 minutes FLUOROSCOPIC EXPOSURES:6 TECHNIQUE: Gastrografin was administered orally in the upright position. FINDINGS: Preliminary image demonstrates surgical clips within the right mid abdominal quadrant correlating with patient's history of cholecystectomy. Gastrografin was administered in the upright position. The esophagus is of normal course and caliber. There are mild tertiary contractions within the distal esophagus. Laparoscopic sleeve gastrectomy ( LSG ) is seen with longitudinal resection of the fundus, body, and antrum of the stomach. Approximately two thirds gastrectomy was done, leaving a remaining tubular stomach conduit, seen on fluoroscopy. There is no extravasation or leaks. There is prompt emptying of the conduit. IMPRESSION: 1. Changes consistent with sleeve gastrectomy. No extravasation or obstruction. 2. Mild tertiary contractions within the distal esophagus. Report Dictated on --- Final --- Dictated: 02/16/2022 8:30 am Dictating Physician: MD FONTENOT JOHN Signed Date and Time: 02/16/2022 9:20 am Signed by: MD FONTENOT JOHN Transcribed Date and Time: 02/16/2022 8:33 [facility] Tung Fontenot MD - 02/16/2022 [id number] ACCESSION EXAM DATE/TIME PROCEDURE ORDERING PROVIDER [id number] 02/16/2022 07:43 EDT RF UGI w/o KUB & w/ or [id number] -MOTREVOR THORNTON w/o Delay Flm CPT code 29657 Reason For Exam (RF UGI w/o KUB & w/ or w/o Delay Flm) s/p bariatric surgery Report GASTROGRAFIN UGI SERIES: CLINICAL INDICATIONS: Post op day one gastric sleeve, evaluate for leak. History of cholecystectomy. COMPARISON: RF upper GI 10/18/2021, upper GI endoscopy 05/31/2021. FLUOROSCOPY TIME: 0.9 minutes FLUOROSCOPIC EXPOSURES:6 TECHNIQUE: Gastrografin was administered orally in the upright position. FINDINGS: Preliminary image demonstrates surgical clips within the right mid abdominal quadrant correlating with patient's history of cholecystectomy. Gastrografin was administered in the upright position. The esophagus is of normal course and caliber. There are mild tertiary contractions within the distal esophagus. Laparoscopic sleeve gastrectomy ( LSG ) is seen with longitudinal resection of the fundus, body, and antrum of the stomach. Approximately two thirds gastrectomy was done, leaving a remaining tubular stomach conduit, seen on fluoroscopy. There is no extravasation or leaks. There is prompt emptying of the conduit. IMPRESSION: 1. Changes consistent with sleeve gastrectomy. No extravasation or obstruction. 2. Mild tertiary contractions within the distal esophagus. Report Dictated on --- Final --- Dictated: 02/16/2022 8:30 am Dictating Physician: MD FONTENOT JOHN Signed Date and Time: 02/16/2022 9:20 am Signed by: MD FONTENOT JOHN Transcribed Date and Time: 02/16/2022 8:33 [facility] Work Phone: Radiology Study observation (narrative) [facility] Work Phone: [place] UGIOrdered By: Tung Abbott ra on 02-16-2022 [facility] Work Phone: Glucose,Bedsideon 02-16-2022 Glucose [Mass/Vol] 167 mg/dL High 70-100 [facility] Comment on above: Result Comment: Test performed by glucose meter. Results may be 10%-15% lower than serum/plasma values. (CLIA ID [id number]) Performed By: #### B GLU #### [facility] [address], [place] Glucose [Mass/Vol] 172 mg/dL High 70-100 [facility] Comment on above: Result Comment: Test performed by glucose meter. Results may be 10%-15% lower than serum/plasma values. (CLIA ID [id number]) Performed By: #### B GLU #### [place] [address] [address], [place] Hemogramon 02-16-2022 Erythrocyte distribution width (RBC) [Ratio] 17.4 % High 11.5-14.5 [facility] Comment on above: Performed By: #### B GLU #### [place] [address] [address], [place] Hematocrit (Bld) [Volume fraction] 37.1 % Normal 35.0-47.0 [facility] Comment on above: Performed By: #### B GLU #### [place] [address] [address], [place] Hemoglobin (Bld) [Mass/Vol] 12.0 g/dL Normal 11.7-16.0 [facility] Comment on above: Performed By: #### B GLU #### [place] [address] [address], [place] MCH (RBC) [Entitic mass] 25.5 pg Low 26.0-34.0 [facility] Comment on above: Performed By: #### B GLU #### [place] [address] [address], [place] MCHC 32.3 % Normal 32.0-36.0 [facility] Comment on above: Performed By: #### B GLU #### [place] [address] [address], [place] MCV (RBC) [Entitic vol] 78.8 fL Low 79.0-98.0 [facility] Comment on above: Performed By: #### B GLU #### [facility] [address], [place] Platelet mean volume (Bld) [Entitic vol] 7.5 fL Normal 7.4-12.4 [facility] Comment on above: Result Comment: MPV is a calculated measurement using platelet volume ratio. Performed By: #### B GLU #### [facility] [address], [place] Platelets (Bld) [#/Vol] 444 10*3/uL High 140-440 [facility] Comment on above: Performed By: #### B GLU #### [place] [address] [address], [place] RBC (Bld) [#/Vol] 4.71 10*6/uL Normal 3.80-5.20 [facility] Comment on above: Performed By: #### B GLU #### [place] [address] [address], [place] WBC (Bld) [#/Vol] 10.0 10*3/uL Normal 3.6-10.7 [facility] Comment on above: Performed By: #### B GLU #### [place] [address] [address], [place] POCT Glucoseon 02-16-2022 Glucose [Mass/Vol] 167 mg/dL High 70 - 100 mg/dL [facility] Comment on above: Test performed by gl ucose meter. Results may be 10%-15% lower than serum/plasma values. (CLIA ID [id number]) Interpretation and review of laboratory results Abnormal [facility] Test Performed by [id number] [place] [address] LAB [facility] Test Performed by [id number] [place] [address] LAB POCT GlucoseOrdered By: Mayi Hill on 02-16-2022 Glucose [Mass/Vol] 172 mg/dL High 70 - 100 mg/dL [facility] Work Phone: Comment on above: Test performed by gl ucose meter. Results may be 10%-15% lower than serum/plasma values. (CLIA ID [id number]) Interpretation and review of laboratory results Abnormal [facility] Work Phone: [facility] Work Phone: RF UGI w/o KUB w/ or w/o Del ay Flmon 02-16-2022 RF UGI w/o KUB w/ or w/o Delay Flm [facility]: [id number] ACCESSION EXAM DATE/TIME PROCEDURE ORDERING PROVIDER [id number] 02/16/2022 07:43 EDT RF UGI w/o KUB and w/ or [id number] -RADHA BRAVOIAN w/o Delay Flm CPT code 54908 Reason For Exam (RF UGI w/o KUB and w/ or w/o Delay Flm) s/p bariatric surgery Report GASTROGRAFIN UGI SERIES: CLINICAL INDICATIONS: Post op day one gastric sleeve, evaluate for leak. History of cholecystectomy. COMPARISON: RF upper GI 10/18/2021, upper GI endoscopy 05/31/2021. FLUOROSCOPY TIME: 0.9 minutes FLUOROSCOPIC EXPOSURES:6 TECHNIQUE: Gastrografin was administered orally in the upright position. FINDINGS: Preliminary image demonstrates surgical clips within the right mid abdominal quadrant correlating with patient's history of cholecystectomy. Gastrografin was administered in the upright position. The esophagus is of normal course and caliber. There are mild tertiary contractions within the distal esophagus. Laparoscopic sleeve gastrectomy ( LSG ) is seen with longitudinal resection of the fundus, body, and antrum of the stomach. Approximately two thirds gastrectomy was done, leaving a remaining tubular stomach conduit, seen on fluoroscopy. There is no extravasation or leaks. There is prompt emptying of the conduit. IMPRESSION: 1. Changes consistent with sleeve gastrectomy. No extravasation or obstruction. 2. Mild tertiary contractions within the distal esophagus. Report Dictated on Final Dictated: 02/16/2022 8:30 am Dictating Physician: MD FONTENOT JOHN Signed Date and Time: 02/16/2022 9:20 am Signed by: MD FONTENOT JOHN Transcribed Date and Time: 02/16/2022 8:33 Normal [facility] Surgical Pathologyon 022 Surgical Pathology Report SEE BELOW [facility] 1 [id number] [facility] PATHOLOGY AND LABORATORY MEDICINE [address] [place] [id number] FINAL SURGICAL PATHOLOGY REPORT NAME: HEAVEN MONROE : 1955 66 Y F BILLING NO.: [id number] LOCATION: [place] [address] PROCEDURE 02/15/2022 DATE: SURGEON: TUNG CURRY M.D. RECEIVED 02/15/2022 DATE: ATTENDING: TUNG CURRY M.D. REPORT DATE: 02/16/2022 COPIES TO: DIAGNOSIS: A. LIVER, WEDGE BIOPSY - MODERATE TO SEVERE STEATOSIS (GRADE 2-3) Comment: Sections demonstrate an intact liver architecture with moderate to severe macrovesicular steatosis occupying approximately 60-70% of the liver volume. There is no evidence of ballooning degeneration, lobular activity, or Carlton's hyaline. The portal tracts contain all normal structures without any significant inflammatory infiltrate. Special stains (iron and trichrome) are negative for increased iron storage and fibrosis, respectively. B. STOMACH, PARTIAL GASTRECTOMY - BENIGN NON-INFLAMED GASTRIC TISSUE Comment: Evaluation of the H&E-stained sections shows no evidence of Helicobacter pylori or any morphologic features to suggest infection with the organism; as such, further studies for Helicobacter are not indicated. There is no evidence of intestinal metaplasia, dysplasia or malignancy. JAW/JAW Signature> SHERIF WATTS M.D. CLINICAL INFORMATION: Morbid obesity. SPECIMEN: (A) LIVER NEEDLE OR WEDGE BIOPSY, MEDICAL (B) STOMACH, PARTIAL GASTRECTOMY GROSS DESCRIPTION: A. Specimen received in formalin labeled liver biopsy are two reddish-brown soft tissue segments each measuring 0.7 cm in greatest dimension. The specimen is entirely submitted in a single cassette. B. Specimen received in formalin labeled portion of stomach is an elongated portion of stomach consistent with greater curvature measuring 19 x 3.5 x 3 cm. Serosal surface is pink-hathaway with harris fibrofatty soft tissue tags. There is a row of metal ashly present along one entire edge. Upon opening the specimen, the mucosa is granular, pink-harris to red-harris with prominent rugal folds. No polyps or ulcers are identified. Certified Athletic Trainer sections are submitted in two cassettes. JCK/LS3 Disclaimer: The following statement applies to all immunohistochemistry , in situ hybridization, molecular studies, and immunofluorescence testing. The use of one or more reagents in the above tests is regulated as an analyte specific reagent (ASR). These tests were developed and their performance characteristics determined by the clinical laboratories of [facility]. They have not been cleared by the US Food and Drug Administration (FDA). The FDA has determined that such clearance or approval is not necessary. All the above immunostains were performed on paraffin embedded tissue. Appropriate positive and negative controls (where applicable) were run in parallel with the patient's specimen; these controls showed expected staining pattern, with acceptable intensity of staining. Immunohistochemical assays have not been validated on decalcified tissues. Results should be interpreted with caution given the raised possibility of false negativity on decalcified specimens. Professional Performing Location: [address] [place] [address]. DEPARTMENT OF PATHOLOGY AND LABORATORY MEDICINE [place], [place] [address] [facility] LAB [facility] Basic Metabolic Panelon 05-2 Calcium [Mass/Vol] 9.2 mg/dL Normal 8.4-10.4 [facility] Comment on above: Performed By: #### B GLU #### [place] [address] [place], [place] Anion gap [Moles/Vol] 10 mmol/L Normal 3-13 [facility] Comment on above: Performed By: #### B GLU #### [address] CO2 [Moles/Vol] 20 mmol/L Low 22-30 [facility] Comment on above: Performed By: #### B GLU #### [address] Creatinine [Mass/Vol] 0.70 mg/dL Normal 0.52-1.25 [facility] Comment on above: Performed By: #### B GLU #### [address] GFR/1.73 sq M.predicted among blacks MDRD (S/P/Bld) [Vol rate/Area] mL/min/{1.73_m2} Normal >60 [facility] Comment on above: Performed By: #### B GLU #### [place] [address] [place], [place] GFR/1.73 sq M.predicted among non-blacks MDRD (S/P/Bld) [Vol rate/Area] 89.4 mL/min/{1.73_m2} Normal >60 [facility] Comment on above: Result Comment: KDIG O guidelines provide the following GFR categories: Stage GFR(ml/min/1.73 m2) Terms G1 >=90 Normal or high G2 60-89 Mildly decreased* G3a 45-59 Mildly to moderately decreased G3b 30-44 Moderately to severely decreased G4 15-29 Severely decreased G5 <15 Kidney failure *Relative to young adult level. In the absence of evidence of kidney damage, neither GFR category G1 nor G2 fulfill the criteria for CKD. The CKD-EPI equation is validated in individuals 18 years of age and older. Currently the best equation for estimating glomerular filtration rate (GFR) from serum creatinine in children is the Bedside Ackerman equation. It is less accurate in patients with extremes of muscle mass, restriction of dietary protein, ingestion of creatine, extra-renal metabolism of creatinine, or treatment with medications that affect renal tubular creatinine secretion. Performed By: #### B GLU #### [facility] [address], [place] Glucose [Mass/Vol] 270 mg/dL High 70-100 [facility] Comment on above: Performed By: #### B GLU #### [place] [address] [address], [place] Urea nitrogen [Mass/Vol] 15 mg/dL Normal 9-20 [facility] Comment on above: Performed By: #### B GLU #### [place] [address] [address], [place] Chloride [Moles/Vol] 103 mmol/L Normal 98-107 [facility] Comment on above: Performed By: #### B GLU #### [place] [address] [address], [place] Potassium [Moles/Vol] 4.3 mmol/L Normal 3.5-5.1 [facility] Comment on above: Performed By: #### B GLU #### [place] [address] [address], [place] Sodium [Moles/Vol] 133 mmol/L Low 135-145 [facility] Comment on above: Performed By: #### B GLU #### [place] [address] [address], [place] Anion gap [Moles/Vol] 10 mmol/L 3 - 13 mmol/L [facility] Calcium [Mass/Vol] 9.2 mg/dL 8.4 - 10. 4 mg/dL [facility] Chloride [Moles/Vol] 103 mmol/L 98 - 10 7 mmol/L [facility] CO2 [Moles/Vol] 20 mmol/L Low 22 - 30 mmol/L [facility] Creatinine [Mass/Vol] 0.7 mg/dL 0.52 - 1.25 mg/dL [facility] EGFR IF NonAfrican Ecuadorean 89.4 mL/min >60 [facility] Comment on above: KDIGO guidelines pro vide the following GFR categories: Stage GFR(ml/min/1.73 m2) Terms G1 >=90 Normal or high G2 60-89 Mildly decreased* G3a 45-59 Mildly to moderately decreased G3b 30-44 Moderately to severely decreased G4 15-29 Severely decreased G5 <15 Kidney failure *Relative to young adult level. In the absence of evidence of kidney damage, neither GFR category G1 nor G2 fulfill the criteria for CKD. The CKD-EPI equation is validated in individuals 18 years of age and older. Currently the best equation for estimating glomerular filtration rate (GFR) from serum creatinine in children is the Bedside Ackerman equation. It is less accurate in patients with extremes of muscle mass, restriction of dietary protein, ingestion of creatine, extra-renal metabolism of creatinine, or treatment with medications that affect renal tubular creatinine secretion. GFR/1.73 sq M.predicted among blacks MDRD (S/P/Bld) [Vol rate/Area] mL/min/{1.73_m2} >60 mL/min [facility] Glucose [Mass/Vol] 270 mg/dL High 70 - 100 mg/dL [facility] Interpretation and review of laboratory results Abnormal [facility] Potassium [Moles/Vol] 4.3 mmol/L 3.5 - 5.1 mmol/L [facility] Sodium [Moles/Vol] 133 mmol/L Low 135 - 145 mmol/L [facility] Urea nitrogen (BldV) [Mass/Vol] 15 mg/dL 9 - 20 mg/dL [facility] Test Performed by [facility], [address] [place] [address] LAB [facility] Glucose,Bedsideon 02-15-2022 Glucose [Mass/Vol] 189 mg/dL High 70-100 [facility] Comment on above: Result Comment: Test performed by glucose meter. Results may be 10%-15% lower than serum/plasma values. (CLIA ID [id number]) Performed By: #### B GLU #### [address] [address] Glucose [Mass/Vol] 209 mg/dL High 70-100 [facility] Comment on above: Result Comment: Test performed by glucose meter. Results may be 10%-15% lower than serum/plasma values. (CLIA ID [id number]) Performed By: #### B GLU #### [place] [address] [place] [address] Glucose [Mass/Vol] 210 mg/dL High 70-100 [facility] Comment on above: Result Comment: Test performed by glucose meter. Results may be 10%-15% lower than serum/plasma values. (CLIA ID [id number]) Performed By: #### B GLU #### [place] [address] [place] [address] Glucose [Mass/Vol] 222 mg/dL High 70-100 [facility] Comment on above: Result Comment: Test performed by glucose meter. Results may be 10%-15% lower than serum/plasma values. (CLIA ID [id number]) Performed By: #### B GLU #### [place] [address] [place] [address] Glucose [Mass/Vol] 273 mg/dL High 70-100 [facility] Comment on above: Result Comment: Test performed by glucose meter. Results may be 10%-15% lower than serum/plasma values. (CLIA ID [id number]) Performed By: #### B GLU #### [place] [address] [place] [address] Glucose [Mass/Vol] 170 mg/dL High 70-100 [facility] Comment on above: Result Comment: Test performed by glucose meter. Results may be 10%-15% lower than serum/plasma values. (CLIA ID [id number]) Performed By: #### B GLU #### [place] [address] [place] [address] Hemoglobin AND Hematocriton 02-15-2022 Hematocrit (Bld) [Volume fraction] 36.3 % Normal 35.0-47.0 [facility] Comment on above: Performed By: #### B MP3, HGHCT #### [place] [address] [place] [address] Hemoglobin (Bld) [Mass/Vol] 11.8 g/dL Normal 11.7-16.0 [facility] Comment on above: Performed By: #### B MP3, HGHCT #### [address] [address] Hemoglobin and Hematocrit, B loodon 02-15-2022 Hematocrit (Bld) [Volume fraction] 36.3 % 35.0 - 47.0 % [facility] Hemoglobin.gastrointes tinal spec 1 Ql (Stl) 11.8 g/dL 11.7 - 16.0 g/dL [facility] Test Performed by [facility], [address] [place] [address] [facility] OPERATIVE REPORTon 2 Ordered by an unspecified provider. [facility] Op Noteon 02-15-2022 Op Note [facility] - Surgery [facility] Physicians Surgery Patient Name: Heaven Monroe OPERATIVE NOTE DATE OF PROCEDURE: 02/15/2022 SURGEON: Tung Curry MD LOCAL AREA NETWORK ADMINISTRATOR: Trevor Bravo MD PROCEDURE: 1. LAPAROSCOPIC SLEEVE GASTRECTOMY 2. LAPAROSCOPIC LIVER BIOPSY 3. UPPER GI ENDOSCOPY PREOPERATIVE DIAGNOSES: 1. MITZI 2. DM 3. HTN 4. GERD 5. Morbid obesity. 6. Hepatic steatosis. POSTOPERATIVE DIAGNOSES: 1. MITZI 2. DM 3. HTN 4. GERD 5. Morbid Obesity. 6. Hepatic steatosis. ANESTHESIA: General. SPECIMEN: Liver Biopsy, stomach ESTIMATED BLOOD LOSS: Minimal. PREOPERATIVE MEDICATIONS: Ancef, heparin. INDICATIONS FOR PROCEDURE: The patient is a 66 y.o. female with morbid obesity with a Body mass index is 45.9 kg/m?. and is now scheduled for a sleeve gastrectomy. DESCRIPTION OF PROCEDURE: The patient was brought to the operating room and placed in supine position. After initiation of general anesthesia by the Anesthesia Department, he was placed in split-leg lithotomy and his arms were extended. Care was taken to pad the bony prominences. Her abdomen was shaved, prepped, and draped in a normal sterile fashion. A 5 mm trocar was placed in the left upper quadrant. We insufflated without difficulty. We placed a 5 mm trocar in the left upper quadrant, one in the right upper quadrant, one in the mid-epigastrium, one inferiorly and lateral for the initial access port. A 5 mm subxiphoid stab wound was created for retraction of the left lobe of liver using the Leno liver retractor and a 12 mm stapling port was placed in the right lower quadrant. The phrenoesophageal ligament was divided using hook electrocautery exposing the left lydia of the diaphragm. We then began by dividing the short gastric vessels. The Harmonic scalpel was used to separate the short gastric vessels beginning 2/[address] the greater curvature of the stomach, we then extended cephalad to the angle of His. We then worked distal to approximately 4 cm from the pylorus on all the posterior attachments of the stomach were taken down sharply. At this point, a 40-Kittitian Visi-Gi bougie was placed and positioned into the antrum and suction was applied. Sequential black staple loads were used to create a tubularization and sleeve gastrectomy along the lesser curvature using the bougie as a guide. Sequential black staple loads, green and blue staple loads were used to complete the sleeve gastrectomy. We did staying medial to the first short gastric vascular pedicle, and the remaining attachments to the superior aspect of the spleen were taken down using the Harmonic scalpel until the remnant was freely mobile. At this point, multiple sutures of 3-0 Vicryl were used to oversew the staple lines and the confluence of staple lines. Once this was performed, a liver biopsy was performed. Intra-abdominal evaluation of the liver and visual inspection identified severe enlargement of the right and left lobe of the liver. As a result of the grossly abnormal visual inspection of the liver as well as abnormal preoperative radiographic ultrasound, liver biopsy was performed. Multiple bites of the left lobe of the liver were obtained using a laparoscopic wedge liver biopsy forceps. Tissue was sent to pathology for pathologic interpretation. Hemostasis was completed using Bovie electrocautery. After completing the sleeve gastrectomy upper GI endoscopy was performed in order to evaluate the integrity of the staple line. The Olympus gastroscope was introduced through the mouth, through the esophagus and through the gastric tubule. The scope was passed through the pylorus and into the duodenum. The scope was then withdrawn slowly and there was no evidence of narrowing at the incisura. The gastric tubule was submerged under irrigation placed in the abdomen. There was no evidence of air extravasation on the intraoperative leak test performed. The air was evacuated and the scope removed from the patient. The gastric remnant was removed through the right lower quadrant stapling port. The 12 mm port sites were closed with multiple 0 Vicryl sutures. The skin was closed using 4-0 Moncoryl. She tolerated the procedure well, was extubated and sent to the recovery room in stable condition. There were no qualified residents available to facilitate the procedure, as a result Dr. Trevor Bravo MD was asked to serve as the first press operator for this procedure. [facility] Data Collection Sheet Start Time: 813 Stop Time: 934 Loads: 6 Bougie (or sizing device): 40 Kittitian Distance from pylorus: 4 cm Staple Line reinforcement: [] Yes [x] No Oversew: [x] Yes [] No Restaurant Kitchen Manager: [] Resident [x] Fellow [] PA/VOYAGE MANAGEMENT SYSTEM OPERATOR/CHEESE SPRAYER [] Attending - Weight Loss Surgeon ASA Class: [] 1 [] 2 [x] 3 []4 [] 5 Surgical Approach: [x] Conventional laparosco (more content not included)... Normal [facility] POCT GlucoseOrdered By: Isabel Guerrero on 02-15-2022 Glucose [Mass/Vol] 189 mg/dL High 70 - 100 mg/dL [facility] Work Phone: Comment on above: Test performed by gl ucose meter. Results may be 10%-15% lower than serum/plasma values. (CLIA ID [id number]) Interpretation and review of laboratory results Abnormal [facility] Work Phone: [facility] Work Phone: POCT Glucoseon 02-15-2022 Test Performed by [address] [address] [facility] Test Performed by [address] [address] [facility] Glucose [Mass/Vol] 210 mg/dL High 70 - 100 mg/dL [facility] Comment on above: Test performed by gl ucose meter. Results may be 10%-15% lower than serum/plasma values. (CLIA ID [id number]) Interpretation and review of laboratory results Abnormal [facility] Test Performed by [facility], [address] [place] [id number] [place] [address] [facility] Glucose [Mass/Vol] 222 mg/dL High 70 - 100 mg/dL [facility] Comment on above: Test performed by gl ucose meter. Results may be 10%-15% lower than serum/plasma values. (CLIA ID [id number]) Interpretation and review of laboratory results Abnormal [facility] Test Performed by [facility], [facility] [address] [facility] Glucose [Mass/Vol] 273 mg/dL High 70 - 100 mg/dL [facility] Comment on above: Test performed by gl ucose meter. Results may be 10%-15% lower than serum/plasma values. (CLIA ID [id number]) Interpretation and review of laboratory results Abnormal [facility] Test Performed by [facility], [facility] [address] [facility] Glucose [Mass/Vol] 170 mg/dL High 70 - 100 mg/dL [facility] Comment on above: Test performed by gl ucose meter. Results may be 10%-15% lower than serum/plasma values. (CLIA ID [id number]) Interpretation and review of laboratory results Abnormal [facility] Test Performed by [facility], [address] [place] [address] [facility] POCT GlucoseOrdered By: Abhishek Lofton on 02-15-2022 Glucose [Mass/Vol] 209 mg/dL High 70 - 100 mg/dL [facility] Comment on above: Test performed by gl ucose meter. Results may be 10%-15% lower than serum/plasma values. (CLIA ID [id number]) Interpretation and review of laboratory results Abnormal [facility] Prothrombin Timeon 2 INR 1.2 High 0.9-1.1 [facility] Comment on above: Result Comment: Romel mmended Anticoagulant Therapy: SEE BELOW ----- INR of 2.0 - 3.0 : - Prophylaxis of Venous Thrombosis (high-risk surgery) - Treatment of Venous Thrombosis - Treatment of Pulmonary Embolism (Includes tissue heart valves, Acute Myocardial Infarction to prevent systemic embolism, Valvular Heart Disease, and Atrial Fibrillation) ----- INR of 2.5 - 3.5 : - Mechanical Prosthetic Valves (high risk) - If oral anticoagulant therapy is used to prevent Myocardial Infarction Performed By: #### P T #### [address] [address] PT Coag (PPP) [Time] 12.4 s High 9.0-12.0 [facility] Comment on above: Result Comment: . Performed By: #### P T #### [address] [address] Protime-INRon 02-15-2022 INR Coag (Bld) [Relative time] 1.2 {INR} High [facility] Comment on above: Recommended Anticoag ulant Therapy: SEE BELOW ----- INR of 2.0 - 3.0 : - Prophylaxis of Venous Thrombosis (high-risk surgery) - Treatment of Venous Thrombosis - Treatment of Pulmonary Embolism (Includes tissue heart valves, Acute Myocardial Infarction to prevent systemic embolism, Valvular Heart Disease, and Atrial Fibrillation) ----- INR of 2.5 - 3.5 : - Mechanical Prosthetic Valves (high risk) - If oral anticoagulant therapy is used to prevent Myocardial Infarction Interpretation and review of laboratory results Abnormal [facility] PT Coag (PPP) [Time] 12.4 s High 9.0 - 12.0 s [facility] Comment on above: . Test Performed by [facility], [address] [place] [address] [facility] Surgical Pathologyon 022 Surgical Pathology [id number] [facility] PATHOLOGY AND LABORATORY MEDICINE [address] [place] [address] FINAL SURGICAL PATHOLOGY REPORT NAME: HEAVEN MONROE : 1955 66 Y F BILLING NO.: [id number] LOCATION: [id number] PROCEDURE 02/15/2022 DATE: SURGEON: TUNG CURRY M.D. RECEIVED 02/15/2022 DATE: ATTENDING: TUNG CURRY M.D. REPORT DATE: 02/16/2022 COPIES TO: DIAGNOSIS: A. LIVER, WEDGE BIOPSY - MODERATE TO SEVERE STEATOSIS (GRADE 2-3) Comment: Sections demonstrate an intact liver architecture with moderate to severe macrovesicular steatosis occupying approximately 60-70% of the liver volume. There is no evidence of ballooning degeneration, lobular activity, or Carlton's hyaline. The portal tracts contain all normal structures without any significant inflammatory infiltrate. Special stains (iron and trichrome) are negative for increased iron storage and fibrosis, respectively. B. STOMACH, PARTIAL GASTRECTOMY - BENIGN NON-INFLAMED GASTRIC TISSUE Comment: Evaluation of the H&E-stained sections shows no evidence of Helicobacter pylori or any morphologic features to suggest infection with the organism; as such, further studies for Helicobacter are not indicated. There is no evidence of intestinal metaplasia, dysplasia or malignancy. JAW/JAW Signature> SHERIF WATTS M.D. CLINICAL INFORMATION: Morbid obesity. SPECIMEN: (A) LIVER NEEDLE OR WEDGE BIOPSY, MEDICAL (B) STOMACH, PARTIAL GASTRECTOMY GROSS DESCRIPTION: A. Specimen received in formalin labeled liver biopsy are two reddish-brown soft tissue segments each measuring 0.7 cm in greatest dimension. The specimen is entirely submitted in a single cassette. B. Specimen received in formalin labeled portion of stomach is an elongated portion of stomach consistent with greater curvature measuring 19 x 3.5 x 3 cm. Serosal surface is pink-hathaway with harris fibrofatty soft tissue tags. There is a row of metal ashly present along one entire edge. Upon opening the specimen, the mucosa is granular, pink-harris to red-harris with prominent rugal folds. No polyps or ulcers are identified. Certified Athletic Trainer sections are submitted in two cassettes. JCK/LS3 Disclaimer: The following statement applies to all immunohistochemistry , in situ hybridization, molecular studies, and immunofluorescence testing. The use of one or more reagents in the above tests is regulated as an analyte specific reagent (ASR). These tests were developed and their performance characteristics determined by the clinical laboratories of [facility]. They have not been cleared by the US Food and Drug Administration (FDA). The FDA has determined that such clearance or approval is not necessary. All the above immunostains were performed on paraffin embedded tissue. Appropriate positive and negative controls (where applicable) were run in parallel with the patient's specimen; these controls showed expected staining pattern, with acceptable intensity of staining. Immunohistochemical assays have not been validated on decalcified tissues. Results should be interpreted with caution given the raised possibility of false negativity on decalcified specimens. Professional Performing Location: [place] [address]. DEPARTMENT OF PATHOLOGY AND LABORATORY MEDICINE [place], [place] [address] [email or web address] Normal [facility] Glucose,Bedsideon 01-30-2022 Glucose [Mass/Vol] 213 mg/dL High 70-100 [facility] Comment on above: Result Comment: Test performed by glucose meter. Results may be 10%-15% lower than serum/plasma values. (CLIA ID [id number]) Performed By: #### B GLU #### [address] [address] POCT GlucoseOrdered By: Nelsy Lr on 01-30-2022 Glucose [Mass/Vol] 213 mg/dL High 70 - 100 mg/dL [facility] Work Phone: Comment on above: Test performed by gl ucose meter. Results may be 10%-15% lower than serum/plasma values. (CLIA ID [id number]) Interpretation and review of laboratory results Abnormal [facility] Work Phone: [facility] Work Phone: POCT Glucoseon 01-30-2022 Test Performed by [facility], [address] [place] [address] [facility] Albumin, Serumon 01-19-2022 Albumin [Mass/Vol] 4.0 g/dL Normal 3.5-5.0 [facility] Comment on above: Performed By: #### M ACR5, HEMDF, LIPD2, CMP3 #### [facility] [address] [place] [address] Basic Metabolic Panelon 12-24 Calcium [Mass/Vol] 10.1 mg/dL Normal 8.4-10.4 [facility] Comment on above: Performed By: #### H A1C2, BMP3, ALB3, HEMOG #### [facility] [address] [place] [address] Glucose [Mass/Vol] 203 mg/dL High 70-100 [facility] Comment on above: Performed By: #### H A1C2, BMP3, ALB3, HEMOG #### [facility] [address] [place] [address] Anion gap [Moles/Vol] 7 mmol/L Normal 3-13 [facility] Comment on above: Performed By: #### H A1C2, BMP3, ALB3, HEMOG #### [facility] [address] [place] [address] CO2 [Moles/Vol] 28 mmol/L Normal 22-30 [facility] Comment on above: Performed By: #### H A1C2, BMP3, ALB3, HEMOG #### [facility] [address] [place] [address] Creatinine [Mass/Vol] 0.61 mg/dL Normal 0.52-1.25 [facility] Comment on above: Performed By: #### H A1C2, BMP3, ALB3, HEMOG #### [facility] [address] [place] [address] eGFR OTHER > 90.0 Normal >60 [facility] Comment on above: Result Comment: KDIG O guidelines provide the following GFR categories: Stage GFR(ml/min/1.73 m2) Terms G1 >=90 Normal or high G2 60-89 Mildly decreased* G3a 45-59 Mildly to moderately decreased G3b 30-44 Moderately to severely decreased G4 15-29 Severely decreased G5 <15 Kidney failure *Relative to young adult level. In the absence of evidence of kidney damage, neither GFR category G1 nor G2 fulfill the criteria for CKD. The CKD-EPI equation is validated in individuals 18 years of age and older. Currently the best equation for estimating glomerular filtration rate (GFR) from serum creatinine in children is the Bedside Ackerman equation. It is less accurate in patients with extremes of muscle mass, restriction of dietary protein, ingestion of creatine, extra-renal metabolism of creatinine, or treatment with medications that affect renal tubular creatinine secretion. Performed By: #### H A1C2, BMP3, ALB3, HEMOG #### [facility] [address] [place] [address] GFR/1.73 sq M.predicted among blacks MDRD (S/P/Bld) [Vol rate/Area] mL/min/{1.73_m2} Normal >60 [facility] Comment on above: Performed By: #### H A1C2, BMP3, ALB3, HEMOG #### [facility] [address] [place] [address] Urea nitrogen [Mass/Vol] 13 mg/dL Normal 9-20 [facility] Comment on above: Performed By: #### H A1C2, BMP3, ALB3, HEMOG #### [facility] [address] [place] [address] Chloride [Moles/Vol] 101 mmol/L Normal 98-107 [facility] Comment on above: Performed By: #### H A1C2, BMP3, ALB3, HEMOG #### [facility] [address] [place] [address] Potassium [Moles/Vol] 4.0 mmol/L Normal 3.5-5.1 [facility] Comment on above: Performed By: #### H A1C2, BMP3, ALB3, HEMOG #### [facility] [address] [place] [address] Sodium [Moles/Vol] 136 mmol/L Normal 135-145 [facility] Comment on above: Performed By: #### H A1C2, BMP3, ALB3, HEMOG #### [facility] [address] [place] [address] CR Chest PA/LATon 01-19-2022 CR Chest PA/LAT Patient Name: HEAVEN MONROE Diagnostic Radiology ACCESSION EXAM DATE/TIME PROCEDURE ORDERING PROVIDER [id number] 01/19/2022 13:39 EDT CR Chest PA and LAT [id number] -CARLTON SALVADOR CPT code 72768 Reason For Exam (CR Chest PA and LAT) PRE OP Report CHEST X-RAY PA/LATERAL CLINICAL INDICATION: Preoperative examination Frontal and lateral plain films of the chest were obtained. COMPARISON: None FINDINGS: The cardiac silhouette is within normal limits. No focal consolidation is seen within the lungs. No pleural effusion or pneumothorax is identified. Degenerative changes of the thoracic spine are noted. IMPRESSION: No acute cardiopulmonary disease. Report Dictated on Final Dictating Physician: MD SHEA JONATHAN R Signed Date and Time: 01/19/2022 6:57 pm Signed by: MD SHEA JONATHAN R Transcribed Date and Time: 01/19/2022 6:58 Normal [facility] Hemoglobin A1Con 01-19-2022 Glucose [Mass/Vol] 246 mg/dL Normal [facility] Comment on above: Performed By: #### M ACR5, HEMDF, LIPD2, CMP3 #### [facility] [address] [place] [address] HbA1c (Bld) [Mass fraction] 10.2 % Abnormal [facility] Comment on above: Result Comment: Norm al less than 5.7% Prediabetes 5.7% to 6.4% Diabetes 6.5% or higher --HgbA1C levels may not be accurate in patients who have renal disease, received recent blood transfusions, are anemic, or who have dyshemoglobinemia. Performed By: #### M ACR5, HEMDF, LIPD2, CMP3 #### [facility] [address] [place] [address] Hemogramon 01-19-2022 Erythrocyte distribution width (RBC) [Ratio] 16.1 % High 11.5-14.5 [facility] Comment on above: Performed By: #### H A1C2, BMP3, ALB3, HEMOG #### [facility] [address] [place] [address] Hematocrit (Bld) [Volume fraction] 37.0 % Normal 35.0-47.0 [facility] Comment on above: Performed By: #### H A1C2, BMP3, ALB3, HEMOG #### [facility] [address] [place] [address] Hemoglobin (Bld) [Mass/Vol] 11.7 g/dL Normal 11.7-16.0 [facility] Comment on above: Performed By: #### H A1C2, BMP3, ALB3, HEMOG #### [facility] [address] [place] [address] MCH (RBC) [Entitic mass] 25.8 pg Low 26.0-34.0 [facility] Comment on above: Performed By: #### H A1C2, BMP3, ALB3, HEMOG #### [facility] [address] [place] [address] MCHC 31.6 % Low 32.0-36.0 [facility] Comment on above: Performed By: #### H A1C2, BMP3, ALB3, HEMOG #### [facility] [address] [place] [address] MCV (RBC) [Entitic vol] 81.7 fL Normal 79.0-98.0 [facility] Comment on above: Performed By: #### H A1C2, BMP3, ALB3, HEMOG #### [facility] [address] [place] [address] Platelet mean volume (Bld) [Entitic vol] 9.6 fL Normal 7.4-12.4 [facility] Comment on above: Result Comment: MPV is a calculated measurement using platelet volume ratio. Performed By: #### H A1C2, BMP3, ALB3, HEMOG #### [facility] [address] [place] [address] Platelets (Bld) [#/Vol] 436 10*3/uL Normal 140-440 [facility] Comment on above: Performed By: #### H A1C2, BMP3, ALB3, HEMOG #### [facility] [address] [place] [address] RBC (Bld) [#/Vol] 4.53 10*6/uL Normal 3.80-5.20 [facility] Comment on above: Performed By: #### H A1C2, BMP3, ALB3, HEMOG #### [facility] [address] [place] [address] WBC (Bld) [#/Vol] 10.1 10*3/uL Normal 3.6-10.7 [facility] Comment on above: Performed By: #### H A1C2, BMP3, ALB3, HEMOG #### [facility] [address] [place] [address] Absolute lymphocyte counton 10-23-2021 Lymphocytes Auto (Unsp spec) [#/Vol] 1.15 10*3/uL 0.83-4.51 [facility] Work Phone: Basophil percentageon 2021 Basophils/100 WBC (Bld) 0.2 % 0-1 [facility] Work Phone: Bilirubin [Mass/Vol] 0.30 mg/dL 0.20-1.00 [facility] Work Phone: Comment on above: For patients on eltr ombopag therapy, use of Dimension Emerson TBIL is not recommended. Chloride [Moles/Vol] 109 mmol/L 98-107 [facility] Work Phone: Eosinophils/100 WBC (Bld) 0.7 % 0-5 [facility] Work Phone: Glucose [Mass/Vol] 237 mg/dL 74-106 [facility] Work Phone: Comment on above: Glucose result great er than or equal to 200 mg/dLsuggests DIABETES MELLITUS per A.D.A. criteria. Neutrophils (Bld) [#/Vol] 6.8 10*3/uL 2.0-7.7 [facility] Work Phone: Neutrophils/100 WBC (Bld) 78.6 % 47-70 [facility] Work Phone: Potassium [Moles/Vol] 3.3 mmol/L 3.5-5.[address] [facility] Work Phone: Protein [Mass/Vol] 6.1 g/dL 6.4-8.2 [facility] Work Phone: Sodium [Moles/Vol] 139 mmol/L 136-145 [facility] Work Phone: WBC (Bld) [#/Vol] 8.6 10*3/uL 4.4-11.0 [facility] Work Phone: Blood erythrocytes count (nu mber/volume)on 10-23-2021 RBC (Bld) [#/Vol] 4.69 10*6/uL 4.2-5.4 [facility]: Blood hemoglobin measurement (mass/volume)on 10-23-2021 Hemoglobin (Bld) [Mass/Vol] 11.8 g/dL 12.0-15.0 [facility] Work Phone: Blood lymphocytes/100 leukoc yteson 10-23-2021 Lymphocytes/100 WBC (Bld) 13.4 % 19-41 [facility] Work Phone: Blood monocytes/100 leukocyt eson 10-23-2021 Monocytes/100 WBC (Bld) 6.6 % 0-10 [facility] Work Phone: Blood platelet mean volumeon 10-23-2021 Platelet mean volume (Bld) [Entitic vol] 9.5 fL 6.2-12.0 [facility] Work Phone: Determination of erythrocyte mean corpuscular volume (MCV)on 10-23-2021 MCV (RBC) [Entitic vol] 81.4 fL 81-99 [facility] Work Phone: Hematocrit Auto (Bld) [Volum e fraction]on 10-23-2021 Hematocrit (Bld) [Volume fraction] 38.2 % 37-47 [facility] Work Phone: INR in Blood by Coagulation assayon 10-23-2021 INR Coag (Bld) [Relative time] 1.9 {INR} [facility] Work Phone: Laboratory - Chemistry and C hemistry - challengeon 10-23-2021 ALP [Catalytic activity/Vol] 64 U/L 45-117 [facility] Work Phone: ALT [Catalytic activity/Vol] 25 U/L 13-56 [facility] Work Phone: CO2 [Moles/Vol] 23.0 mmol/L 21.0-32.0 [facility] Work Phone: Globulin (S) [Mass/Vol] 3.3 g/dL 2.2-4.2 [facility] Work Phone: Urea nitrogen/Creatinine [Mass ratio] 11.9 mg/mg 10-20 [facility] Work Phone: Laboratory - Coagulationon 0 10-23-2021 PT Coag (PPP) [Time] 20.9 s 11.7-14.9 [facility] Work Phone: Laboratory - Hematology and Cell countson 10-23-2021 Erythrocyte distribution width (RBC) [Entitic vol] 49.4 fL 35.1-43.9 [facility] Work Phone: Erythrocyte distribution width (RBC) [Ratio] 17.0 % 11.6-14.6 [facility] Work Phone: Immature granulocytes/100 WBC (Bld) 0.500 % 0.0-0.9 [facility] Work Phone: Comment on above: IG% - Immature Granu locytes (promyelocytes, myelocytes and metamyelocytes) > 1% indicates that a LEFT SHIFT is Present. MCH (RBC) [Entitic mass] 25.2 pg 27.0-32.0 [facility] Work Phone: Nucleated RBC/100 WBC (Bld) [Ratio] 0 % 0-5 [facility] Work Phone: MCHC Auto (RBC) [Mass/Vol]on 10-23-2021 MCHC (RBC) [Mass/Vol] 30.9 g/dL 32-[address] [facility] Work Phone: No Panel Informationon 10-23 Enteric Bacteriology [facility] Work Phone: Estimated Creatinine Clearance Calc 47.14 ml/min [facility] Work Phone: Estimated GFR (MDRD) Amer 113 mL/min >60 [facility] Work Phone: Comment on above: GFR Calc Estimated GFR (MDRD) Non-Af Amer 93 mL/min >60 [facility] Work Phone: Comment on above: Non- GFR Calc SARS-CoV-2 Antigen (Rapid) [facility] Work Phone: Platelets bldon 10-23-2021 Platelets (Bld) [#/Vol] 400 10*3/uL 150-450 [facility] Work Phone: Serum or plasma albumin sydnie urement (mass/volume)on 10-23-2021 Albumin [Mass/Vol] 2.8 g/dL 3.2-5.0 [facility] Work Phone: Serum or plasma albumin/glob ulin mass ratioon 10-23-2021 Albumin/Globulin [Mass ratio] 0.8 {ratio} 0.9-2.4 [facility] Work Phone: Serum or plasma calcium sydnie urement (mass/volume)on 10-23-2021 Calcium [Mass/Vol] 8.6 mg/dL 8.5-10.1 [facility] Work Phone: Serum or plasma creatinine m easurement (mass/volume)on 10-23-2021 Creatinine [Mass/Vol] 0.67 mg/dL 0.55-1.[address] [facility] Work Phone: Comment on above: The validity of the calculated GFR & GFRAA in patients over 70 years has not been determined. Clinical correlation is essential. Serum or plasma urea nitroge n measurement (mass/volume)on 10-23-2021 Urea nitrogen [Mass/Vol] 8 mg/dL 7-18 [facility] Work Phone: Thin prep Papanicolaou smear with manual screeningon 10-23-2021 Thin prep Papanicolaou smear with manual screening 14 U/L 15-37 [facility] Work Phone: Thin prep Papanicolaou smear with manual screening 7 5-15 [facility] Work Phone: RF UGI w/o KUB w/ or w/o Del ay Flmon 10-18-2021 RF UGI w/o KUB w/ or w/o Delay Flm Patient Name: HEAVEN MONROE Fluoroscopy ACCESSION EXAM DATE/TIME PROCEDURE ORDERING PROVIDER [id number] 10/18/2021 09:30 EST RF UGI w/o KUB and w/ or [id number] -CARLTON SALVADOR w/o Delay Flm CPT code 01248 Reason For Exam (RF UGI w/o KUB and w/ or w/o Delay Flm) Heartburn Report AIR CONTRAST UGI SERIES CLINICAL INDICATIONS: 66-year-old female: Heartburn. Pre-op gastric sleeve surgery. History of cholecystectomy. COMPARISON: Upper GI endoscopy 05/31/2021. FLUOROSCOPY TIME: 0.51minutes. FLUOROSCOPIC EXPOSURES: 12 fluoroscopic series and for spot fluoroscopic images TECHNIQUE: Biphasic exam was performed with barium and air. FINDINGS: A core worker abdominal image was obtained. Anchorman image demonstrates a nonobstructive bowel gas pattern. Degenerative changes are noted within the lumbar spine. Surgical clips are noted within the upper right abdominal quadrant consistent with patient's history of cholecystectomy. Barium and air are administered. The esophagus is studied in the upright as well as the horizontal positions. The esophagus is normal in course and caliber. Retropulsion with stasis, mild tertiary contractions and decrease peristalsis was demonstrated during the exam, which may suggest an element of dysmotility. There is no hiatal hernia. Mild spontaneous gastroesophageal reflux was demonstrated during the exam. Barium flows freely from the esophagus into the stomach. The stomach demonstrates normal mucosal pattern. Mildly prominent duodenal folds. Otherwise the stomach and duodenum demonstrate no discrete ulcer or mass. The visualized proximal jejunum is unremarkable. IMPRESSION: 1. Mild spontaneous gastroesophageal reflux. 2. Mildly prominent duodenal folds suggesting an element of duodenitis. 3. Element of dysmotility as described above with mild tertiary contractions. Fluoroscopy Report Report Dictated on Final Dictating Physician: MD PAL NICHOLAS Signed Date and Time: 10/18/2021 10:48 am Signed by: MD PAL NICHOLAS Transcribed Date and Time: 10/18/2021 10:50 Normal [facility] Vitamin B1,Whole Bloodon Vitamin B1,Whole Blood 121 nmol/L Normal 70-180 [facility] Comment on above: Result Comment: INTE RPRETIVE INFORMATION: Vitamin B1, Whole Blood This assay measures the concentration of thiamine diphosphate (TDP), the primary active form of vitamin B1. Approximately 90 percent of vitamin B1 present in whole blood is TDP. Thiamine and thiamine monophosphate, which comprise the remaining 10 percent, are not measured. This test was developed and its performance characteristics determined by [employer]. It has not been cleared or approved by the [place] Food and Drug Administration. This test was performed in a CLIA certified laboratory and is intended for clinical purposes. Performed By: [facility] [address] [place] [address] Product Safety Administrator: Sweta Mcmanus MD Performed By: #### M G3, K3 #### [facility] [address] [place] [address] Zinc, Serumon 06-09-2021 Zinc, Serum 77.7 ug/dL Normal 60.0-120.0 [facility] Comment on above: Result Comment: INTE RPRETIVE INFORMATION: Zinc, Serum or Plasma Elevated results may be due to skin or collection-related contamination, including the use of a noncertified metal-free collection/transport tube. If contamination concerns exist due to elevated levels of serum/plasma zinc, confirmation with a second specimen collected in a certified metal-free tube is recommended. Circulating zinc concentrations are dependent on albumin status and are depressed with malnutrition. Zinc may also be lowered with infection, inflammation, stress, oral contraceptives, and . Zinc may be elevated with zinc supplementation or fasting. Elevated zinc concentrations may interfere with copper absorption. This test was developed and its performance characteristics determined by [employer]. It has not been cleared or approved by the US Food and Drug Administration. This test was performed in a CLIA certified laboratory and is intended for clinical purposes. Performed By: [employer] [facility] [address] [place] [id number] Product Safety Administrator: Sweta Mcmanus MD Performed By: #### M G3, K3 #### [facility] [address] [place] [address] CBCOrdered By: Carlton Salvador on 06-07-2021 Hematocrit (Bld) [Volume fraction] 34.1 % Low 35.0 - 47.0 % [facility] Work Phone: Hemoglobin.gastrointes tinal spec 1 Ql (Stl) 11.0 g/dL Low 11.7 - 16.0 g/dL [facility] Work Phone: Interpretation and review of laboratory results Abnormal [facility] Work Phone: MCH (RBC) [Entitic mass] 24.6 pg Low 26.0 - 34.0 pg [facility] Work Phone: MCHC (RBC) [Mass/Vol] 32.1 % 32.0 - 36.0 % [facility] Work Phone: MCV (RBC) [Entitic vol] 76.4 fL Low 79.0 - 98.0 fL [facility] Work Phone: Platelet distribution width (Bld) [Ratio] 17.3 % High 11.5 - 14.5 % [facility] Work Phone: Platelet mean volume (Bld) [Entitic vol] 6.6 fL Low 7.4 - 10.4 fL [facility] Work Phone: Platelets (Bld) [#/Vol] 426 10*3/uL 140 - 440 10*3/uL [facility] Work Phone: RBC (Bld) [#/Vol] 4.46 10*6/uL 3.80 - 5.2 0 10*6/uL [facility] Work Phone: WBC (Bld) [#/Vol] 6.2 10*3/uL 3.6 - 10.7 10*3/uL [facility] Work Phone: Test Performed by [facility], [address] [place] [address] [place] [address] [facility] Work Phone: [facility] Work Phone: CBC Auto DifferentialOrdered By: Elissa Dial on 06-07-2021 Absolute Baso # 0.0 10*3/uL 0.0 - 0.2 10*3/uL [facility] Work Phone: Absolute Neut # 3.7 10*3/uL 1.8 - 7.0 10*3/uL [facility] Work Phone: Basophils/100 WBC (Bld) 0.4 % 0.0 - 2.0 % [facility] Work Phone: Eosinophils (Bld) [#/Vol] 0.1 10*3/uL 0.0 - 0.5 10*3/uL [facility] Work Phone: Eosinophils/100 WBC (Bld) 2.3 % 1.0 - 6.0 % [facility] Work Phone: Granulocytes/100 WBC (Bld) 60.1 % 40.0 - 80.0 % [facility] Work Phone: Hematocrit (Bld) [Volume fraction] 33.6 % Low 35.0 - 47.0 % [facility] Work Phone: Hemoglobin.gastrointes tinal spec 1 Ql (Stl) 10.9 g/dL Low 11.7 - 16.0 g/dL [facility] Work Phone: Interpretation and review of laboratory results Abnormal [facility] Work Phone: Lymphocytes (Bld) [#/Vol] 1.9 10*3/uL 1.0 - 4.3 10*3/uL [facility] Work Phone: Lymphocytes/100 WBC (Bld) 31.6 % 20.0 - 40.0 % [facility] Work Phone: MCH (RBC) [Entitic mass] 24.9 pg Low 26.0 - 34.0 pg [facility] Work Phone: MCHC (RBC) [Mass/Vol] 32.3 % 32.0 - 36.0 % [facility] Work Phone: MCV (RBC) [Entitic vol] 76.9 fL Low 79.0 - 98.0 fL [facility] Work Phone: Monocytes (Bld) [#/Vol] 0.3 10*3/uL 0.0 - 0.8 10*3/uL [facility] Work Phone: Monocytes/100 WBC (Bld) 5.6 % 2.0 - 10.0 % [facility] Work Phone: Platelet distribution width (Bld) [Ratio] 17.2 % High 11.5 - 14.5 % [facility] Work Phone: Platelet mean volume (Bld) [Entitic vol] 6.7 fL Low 7.4 - 10.4 fL [facility] Work Phone: Platelets (Bld) [#/Vol] 438 10*3/uL 140 - 440 10*3/uL [facility] Work Phone: RBC (Bld) [#/Vol] 4.37 10*6/uL 3.80 - 5.2 0 10*6/uL [facility] Work Phone: WBC (Bld) [#/Vol] 6.2 10*3/uL 3.6 - 10.7 10*3/uL [facility] Work Phone: Test Performed by [facility], [address] , [place], [place] [address] Work Phone: [facility] Work Phone: Comp Metabolic Panelon 06-07 ALP [Catalytic activity/Vol] 60 U/L Normal 38-126 [facility] Comment on above: Performed By: #### M ACR5, HEMDF, LIPD2, CMP3 #### [facility] [address] [place] [address] ALT [Catalytic activity/Vol] 19 U/L Normal 0-34 [facility] Comment on above: Result Comment: The ALT test is performed by an updated assay method. Please note that the reference intervals have been changed and are now sex specific. Performed By: #### M ACR5, HEMDF, LIPD2, CMP3 #### [facility] [address] [place] [address] AST [Catalytic activity/Vol] 25 U/L Normal 15-46 [facility] Comment on above: Performed By: #### M ACR5, HEMDF, LIPD2, CMP3 #### [facility] [address] [place] [address] Calcium [Mass/Vol] 9.3 mg/dL Normal 8.4-10.4 [facility] Comment on above: Performed By: #### M ACR5, HEMDF, LIPD2, CMP3 #### [facility] [address] [place] [address] Glucose [Mass/Vol] 120 mg/dL High 70-100 [facility] Comment on above: Performed By: #### M ACR5, HEMDF, LIPD2, CMP3 #### [facility] [address] [place] [address] Protein [Mass/Vol] 6.8 g/dL Normal 6.3-8.2 [facility] Comment on above: Performed By: #### M ACR5, HEMDF, LIPD2, CMP3 #### [facility] [address] [place] [address] Urea nitrogen [Mass/Vol] 16 mg/dL Normal 9-20 [facility] Comment on above: Performed By: #### M ACR5, HEMDF, LIPD2, CMP3 #### [facility] [address] [place] [address] Anion gap [Moles/Vol] 6 mmol/L Normal 3-13 [facility] Comment on above: Performed By: #### M ACR5, HEMDF, LIPD2, CMP3 #### [facility] [address] [place] [address] Bilirubin [Mass/Vol] 0.3 mg/dL Normal 0.2-1.3 [facility] Comment on above: Performed By: #### M ACR5, HEMDF, LIPD2, CMP3 #### [facility] [address] [place] [address] CO2 [Moles/Vol] 27 mmol/L Normal 22-30 [facility] Comment on above: Performed By: #### M ACR5, HEMDF, LIPD2, CMP3 #### [facility] [address] [place] [address] Creatinine [Mass/Vol] 0.60 mg/dL Normal 0.52-1.25 [facility] Comment on above: Performed By: #### M ACR5, HEMDF, LIPD2, CMP3 #### [facility] [address] [place] [address] eGFR OTHER > 90.0 Normal >60 [facility] Comment on above: Result Comment: KDIG O guidelines provide the following GFR categories: Stage GFR(ml/min/1.73 m2) Terms G1 >=90 Normal or high G2 60-89 Mildly decreased* G3a 45-59 Mildly to moderately decreased G3b 30-44 Moderately to severely decreased G4 15-29 Severely decreased G5 <15 Kidney failure *Relative to young adult level. In the absence of evidence of kidney damage, neither GFR category G1 nor G2 fulfill the criteria for CKD. The CKD-EPI equation is validated in individuals 18 years of age and older. Currently the best equation for estimating glomerular filtration rate (GFR) from serum creatinine in children is the Bedside Ackerman equation. It is less accurate in patients with extremes of muscle mass, restriction of dietary protein, ingestion of creatine, extra-renal metabolism of creatinine, or treatment with medications that affect renal tubular creatinine secretion. Performed By: #### M ACR5, HEMDF, LIPD2, CMP3 #### [facility] [address] [place] [address] GFR/1.73 sq M.predicted among blacks MDRD (S/P/Bld) [Vol rate/Area] mL/min/{1.73_m2} Normal >60 [facility] Comment on above: Performed By: #### M ACR5, HEMDF, LIPD2, CMP3 #### [facility] [address] [place] [address] ALP [Catalytic activity/Vol] 63 U/L Normal 38-126 [facility] Comment on above: Performed By: #### M ACR5, HEMDF, LIPD2, CMP3 #### [facility] [address] [place] [address] ALT [Catalytic activity/Vol] 19 U/L Normal 0-34 [facility] Comment on above: Result Comment: The ALT test is performed by an updated assay method. Please note that the reference intervals have been changed and are now sex specific. Performed By: #### M ACR5, HEMDF, LIPD2, CMP3 #### [facility] [address] [place] [address] Anion gap [Moles/Vol] 6 mmol/L Normal 3-13 [facility] Comment on above: Performed By: #### M ACR5, HEMDF, LIPD2, CMP3 #### [facility] [address] [place] [address] AST [Catalytic activity/Vol] 26 U/L Normal 15-46 [facility] Comment on above: Performed By: #### M ACR5, HEMDF, LIPD2, CMP3 #### [facility] [address] [place] [address] Bilirubin [Mass/Vol] 0.3 mg/dL Normal 0.2-1.3 [facility] Comment on above: Performed By: #### M ACR5, HEMDF, LIPD2, CMP3 #### [facility] [address] [place] [address] Calcium [Mass/Vol] 9.3 mg/dL Normal 8.4-10.4 [facility] Comment on above: Performed By: #### M ACR5, HEMDF, LIPD2, CMP3 #### [facility] [address] [place] [address] CO2 [Moles/Vol] 27 mmol/L Normal 22-30 [facility] Comment on above: Performed By: #### M ACR5, HEMDF, LIPD2, CMP3 #### [facility] [address] [place] [address] Creatinine [Mass/Vol] 0.59 mg/dL Normal 0.52-1.25 [facility] Comment on above: Performed By: #### M ACR5, HEMDF, LIPD2, CMP3 #### [facility] [address] [place] [address] eGFR OTHER > 90.0 Normal >60 [facility] Comment on above: Result Comment: KDIG O guidelines provide the following GFR categories: Stage GFR(ml/min/1.73 m2) Terms G1 >=90 Normal or high G2 60-89 Mildly decreased* G3a 45-59 Mildly to moderately decreased G3b 30-44 Moderately to severely decreased G4 15-29 Severely decreased G5 <15 Kidney failure *Relative to young adult level. In the absence of evidence of kidney damage, neither GFR category G1 nor G2 fulfill the criteria for CKD. The CKD-EPI equation is validated in individuals 18 years of age and older. Currently the best equation for estimating glomerular filtration rate (GFR) from serum creatinine in children is the Bedside Ackerman equation. It is less accurate in patients with extremes of muscle mass, restriction of dietary protein, ingestion of creatine, extra-renal metabolism of creatinine, or treatment with medications that affect renal tubular creatinine secretion. Performed By: #### M ACR5, HEMDF, LIPD2, CMP3 #### [facility] [address] [place] [address] GFR/1.73 sq M.predicted among blacks MDRD (S/P/Bld) [Vol rate/Area] mL/min/{1.73_m2} Normal >60 [facility] Comment on above: Performed By: #### M ACR5, HEMDF, LIPD2, CMP3 #### [facility] [address] [place] [address] Glucose [Mass/Vol] 120 mg/dL High 70-100 [facility] Comment on above: Performed By: #### M ACR5, HEMDF, LIPD2, CMP3 #### [facility] [address] [place] [address] Protein [Mass/Vol] 6.7 g/dL Normal 6.3-8.2 [facility] Comment on above: Performed By: #### M ACR5, HEMDF, LIPD2, CMP3 #### [facility] [address] [place] [address] Urea nitrogen [Mass/Vol] 16 mg/dL Normal 9-20 [facility] Comment on above: Performed By: #### M ACR5, HEMDF, LIPD2, CMP3 #### [facility] [address] [place] [address] Chloride [Moles/Vol] 105 mmol/L Normal 98-107 [facility] Comment on above: Performed By: #### M ACR5, HEMDF, LIPD2, CMP3 #### [facility] [address] [place] [address] Potassium [Moles/Vol] 3.7 mmol/L Normal 3.5-5.1 [facility] Comment on above: Performed By: #### M ACR5, HEMDF, LIPD2, CMP3 #### [facility] [address] [place] [address] Sodium [Moles/Vol] 138 mmol/L Normal 135-145 [facility] Comment on above: Performed By: #### M ACR5, HEMDF, LIPD2, CMP3 #### [facility] [address] [place] [address] Albumin [Mass/Vol] 3.8 g/dL Normal 3.5-5.0 [facility] Comment on above: Performed By: #### M ACR5, HEMDF, LIPD2, CMP3 #### [facility] [address] [place] [address] Albumin [Mass/Vol] 3.8 g/dL Normal 3.5-5.0 [facility] Comment on above: Performed By: #### M ACR5, HEMDF, LIPD2, CMP3 #### [facility] [address] [place] [address] Potassium [Moles/Vol] 3.7 mmol/L Normal 3.5-5.1 [facility] Comment on above: Performed By: #### M ACR5, HEMDF, LIPD2, CMP3 #### [facility] [address] [place] [address] Sodium [Moles/Vol] 138 mmol/L Normal 135-145 [facility] Comment on above: Performed By: #### M ACR5, HEMDF, LIPD2, CMP3 #### [facility] [address] [place] [address] Chloride [Moles/Vol] 104 mmol/L Normal 98-107 [facility] Comment on above: Performed By: #### M ACR5, HEMDF, LIPD2, CMP3 #### [facility] [address] [place] [address] Comprehensive Metabolic Pane lOrdered By: Carlton Salvador on 06-07-2021 Albumin [Mass/Vol] 3.8 g/dL 3.5 - 5.0 g/dL [facility] Work Phone: ALP (Bld) [Catalytic activity/Vol] 60 U/L 38 - 126 U/L [facility] Work Phone: ALT [Catalytic activity/Vol] 19 U/L 0 - 34 U/L [facility] Work Phone: Comment on above: The ALT test is perf ormed by an updated assay method. Please note that the reference intervals have been changed and are now sex specific. Anion gap [Moles/Vol] 6 mmol/L 3 - 13 mmol/L [facility] Work Phone: AST [Catalytic activity/Vol] 25 U/L 15 - 46 U/L [facility] Work Phone: Bilirubin [Mass/Vol] 0.3 mg/dL 0.2 - 1 .3 mg/dL [facility] Work Phone: Calcium [Mass/Vol] 9.3 mg/dL 8.4 - 10. 4 mg/dL [facility] Work Phone: Chloride [Moles/Vol] 105 mmol/L 98 - 10 7 mmol/L [facility] Work Phone: CO2 [Moles/Vol] 27 mmol/L 22 - 30 mmol/L [facility] Work Phone: Creatinine [Mass/Vol] 0.6 mg/dL 0.52 - 1.25 mg/dL [facility] Work Phone: EGFR IF NonAfrican Ecuadorean >90.0 >60 mL/min [facility] Work Phone: Comment on above: KDIGO guidelines pro vide the following GFR categories: Stage GFR(ml/min/1.73 m2) Terms G1 >=90 Normal or high G2 60-89 Mildly decreased* G3a 45-59 Mildly to moderately decreased G3b 30-44 Moderately to severely decreased G4 15-29 Severely decreased G5 <15 Kidney failure *Relative to young adult level. In the absence of evidence of kidney damage, neither GFR category G1 nor G2 fulfill the criteria for CKD. The CKD-EPI equation is validated in individuals 18 years of age and older. Currently the best equation for estimating glomerular filtration rate (GFR) from serum creatinine in children is the Bedside Ackerman equation. It is less accurate in patients with extremes of muscle mass, restriction of dietary protein, ingestion of creatine, extra-renal metabolism of creatinine, or treatment with medications that affect renal tubular creatinine secretion. Free PSA/Total PSA [Mass fraction] 6.8 g/dL 6.3 - 8.2 g/dL [facility] Work Phone: GFR/1.73 sq M.predicted among blacks MDRD (S/P/Bld) [Vol rate/Area] mL/min/{1.73_m2} >60 mL/min [facility] Work Phone: Glucose [Mass/Vol] 120 mg/dL High 70 - 100 mg/dL [facility] Work Phone: Potassium [Moles/Vol] 3.7 mmol/L 3.5 - 5.1 mmol/L [facility] Work Phone: Sodium [Moles/Vol] 138 mmol/L 135 - 145 mmol/L [facility] Work Phone: Urea nitrogen (BldV) [Mass/Vol] 16 mg/dL 9 - 20 mg/dL [facility] Work Phone: Comprehensive Metabolic Pane lOrdered By: Elissa Dial on 06-07-2021 Albumin [Mass/Vol] 3.8 g/dL 3.5 - 5.0 g/dL [facility] Work Phone: ALP (Bld) [Catalytic activity/Vol] 63 U/L 38 - 126 U/L [facility] Work Phone: ALT [Catalytic activity/Vol] 19 U/L 0 - 34 U/L [facility] Work Phone: Comment on above: The ALT test is perf ormed by an updated assay method. Please note that the reference intervals have been changed and are now sex specific. Anion gap [Moles/Vol] 6 mmol/L 3 - 13 mmol/L [facility] Work Phone: AST [Catalytic activity/Vol] 26 U/L 15 - 46 U/L [facility] Work Phone: Bilirubin [Mass/Vol] 0.3 mg/dL 0.2 - 1 .3 mg/dL [facility] Work Phone: Calcium [Mass/Vol] 9.3 mg/dL 8.4 - 10. 4 mg/dL [facility] Work Phone: Chloride [Moles/Vol] 104 mmol/L 98 - 10 7 mmol/L [facility] Work Phone: CO2 [Moles/Vol] 27 mmol/L 22 - 30 mmol/L [facility] Work Phone: Creatinine [Mass/Vol] 0.59 mg/dL 0.52 - 1.25 mg/dL [facility] Work Phone: EGFR IF NonAfrican Ecuadorean >90.0 >60 mL/min [facility] Work Phone: Comment on above: KDIGO guidelines pro vide the following GFR categories: Stage GFR(ml/min/1.73 m2) Terms G1 >=90 Normal or high G2 60-89 Mildly decreased* G3a 45-59 Mildly to moderately decreased G3b 30-44 Moderately to severely decreased G4 15-29 Severely decreased G5 <15 Kidney failure *Relative to young adult level. In the absence of evidence of kidney damage, neither GFR category G1 nor G2 fulfill the criteria for CKD. The CKD-EPI equation is validated in individuals 18 years of age and older. Currently the best equation for estimating glomerular filtration rate (GFR) from serum creatinine in children is the Bedside Ackerman equation. It is less accurate in patients with extremes of muscle mass, restriction of dietary protein, ingestion of creatine, extra-renal metabolism of creatinine, or treatment with medications that affect renal tubular creatinine secretion. Free PSA/Total PSA [Mass fraction] 6.7 g/dL 6.3 - 8.2 g/dL [facility] Work Phone: GFR/1.73 sq M.predicted among blacks MDRD (S/P/Bld) [Vol rate/Area] mL/min/{1.73_m2} >60 mL/min [facility] Work Phone: Glucose [Mass/Vol] 120 mg/dL High 70 - 100 mg/dL [facility] Work Phone: Potassium [Moles/Vol] 3.7 mmol/L 3.5 - 5.1 mmol/L [facility] Work Phone: Sodium [Moles/Vol] 138 mmol/L 135 - 145 mmol/L [facility] Work Phone: Urea nitrogen (BldV) [Mass/Vol] 16 mg/dL 9 - 20 mg/dL [facility] Work Phone: Ferritinon 06-07-2021 Ferritin [Mass/Vol] 11 ng/mL Normal 11-264 [facility] Comment on above: Performed By: #### M ACR5, HEMDF, LIPD2, CMP3 #### [facility] [address] [place] [address] FerritinOrdered By: Carlton Salvador on 06-07-2021 Ferritin [Mass/Vol] 11 ng/mL 11 - 264 ng/mL [facility] Work Phone: Test Performed by [facility], [address] , [place], [place] [id number] [place], [place] [address] Work Phone: [facility] Work Phone: Folateon 06-07-2021 Folate 7.2 ng/mL Normal [facility] Comment on above: Result Comment: >2.8 Performed By: #### M ACR5, HEMDF, LIPD2, CMP3 #### [facility] [address] [place] [address] FolateOrdered By: Carlton Frost on 06-07-2021 Folate 7.2 ng/mL [facility] Work Phone: Comment on above: >2.8 Hemoglobin A1Con 06-07-2021 Glucose [Mass/Vol] 194 mg/dL Normal [facility] Comment on above: Performed By: #### M ACR5, HEMDF, LIPD2, CMP3 #### [facility] [address] [place] [address] HbA1c (Bld) [Mass fraction] 8.4 % Abnormal [facility] Comment on above: Result Comment: Norm al less than 5.7% Prediabetes 5.7% to 6.4% Diabetes 6.5% or higher --HgbA1C levels may not be accurate in patients who have renal disease, received recent blood transfusions, are anemic, or who have dyshemoglobinemia. Performed By: #### M ACR5, HEMDF, LIPD2, CMP3 #### [facility] [address] [place] [address] Hemoglobin [id number] By: Karie Salvador on 06-07-2021 eAG 194 mg/dL [facility] Work Phone: HbA1c (Bld) [Mass fraction] 8.4 % Abnormal [facility] Work Phone: Comment on above: Normal less than 5.7 % Prediabetes 5.7% to 6.4% Diabetes 6.5% or higher --HgbA1C levels may not be accurate in patients who have renal disease, received recent blood transfusions, are anemic, or who have dyshemoglobinemia. Interpretation and review of laboratory results Abnormal [facility] Work Phone: Test Performed by [facility], [address] , [place] [id number] [place] [address] Work Phone: [facility] Work Phone: Hemogramon 06-07-2021 Erythrocyte distribution width (RBC) [Ratio] 17.3 % High 11.5-14.5 [facility] Comment on above: Performed By: #### M ACR5, HEMDF, LIPD2, CMP3 #### [facility] [address] [place] [address] Hematocrit (Bld) [Volume fraction] 34.1 % Low 35.0-47.0 [facility] Comment on above: Performed By: #### M ACR5, HEMDF, LIPD2, CMP3 #### [facility] [address] [place] [address] Hemoglobin (Bld) [Mass/Vol] 11.0 g/dL Low 11.7-16.0 [facility] Comment on above: Performed By: #### M ACR5, HEMDF, LIPD2, CMP3 #### [address] [place] [address] MCH (RBC) [Entitic mass] 24.6 pg Low 26.0-34.0 [facility] Comment on above: Performed By: #### M ACR5, HEMDF, LIPD2, CMP3 #### [address] [place] [address] MCHC 32.1 % Normal 32.0-36.0 [facility] Comment on above: Performed By: #### M ACR5, HEMDF, LIPD2, CMP3 #### [address] [place] [address] MCV (RBC) [Entitic vol] 76.4 fL Low 79.0-98.0 [facility] Comment on above: Performed By: #### M ACR5, HEMDF, LIPD2, CMP3 #### [facility] [address] [place] [address] Platelet mean volume (Bld) [Entitic vol] 6.6 fL Low 7.4-10.4 [facility] Comment on above: Performed By: #### M ACR5, HEMDF, LIPD2, CMP3 #### [facility] [address] [place] [address] Platelets (Bld) [#/Vol] 426 10*3/uL Normal 140-440 [facility] Comment on above: Performed By: #### M ACR5, HEMDF, LIPD2, CMP3 #### [facility] [address] [place] [address] RBC (Bld) [#/Vol] 4.46 10*6/uL Normal 3.80-5.20 [facility] Comment on above: Performed By: #### M ACR5, HEMDF, LIPD2, CMP3 #### [facility] [address] [place] [address] WBC (Bld) [#/Vol] 6.2 10*3/uL Normal 3.6-10.7 [facility] Comment on above: Performed By: #### M ACR5, HEMDF, LIPD2, CMP3 #### [facility] [address] [place] [address] Hemogram w/ [employer] 06-07 Abs Baso Cnt 0.0 10*3/uL Normal 0.0-0.2 [facility] Comment on above: Performed By: #### M ACR5, HEMDF, LIPD2, CMP3 #### [facility] [address] [place] [address] Abs Neutrophile Cnt 3.7 10*3/uL Normal 1.8-7.0 [facility] Comment on above: Performed By: #### M ACR5, HEMDF, LIPD2, CMP3 #### [facility] [address] [place] [address] Basophils/100 WBC (Bld) 0.4 % Normal 0.0-2.0 [facility] Comment on above: Performed By: #### M ACR5, HEMDF, LIPD2, CMP3 #### [facility] [address] [place] [address] Eosinophils (Bld) [#/Vol] 0.1 10*3/uL Normal 0.0-0.5 [facility] Comment on above: Performed By: #### M ACR5, HEMDF, LIPD2, CMP3 #### [facility] [address] [place] [address] Eosinophils/100 WBC (Bld) 2.3 % Normal 1.0-6.0 [facility] Comment on above: Performed By: #### M ACR5, HEMDF, LIPD2, CMP3 #### [facility] [address] [place] [address] Erythrocyte distribution width (RBC) [Ratio] 17.2 % High 11.5-14.5 [facility] Comment on above: Performed By: #### M ACR5, HEMDF, LIPD2, CMP3 #### [facility] [address] [place] [address] Granulocytes/100 WBC (Bld) 60.1 % Normal 40.0-80.0 [facility] Comment on above: Performed By: #### M ACR5, HEMDF, LIPD2, CMP3 #### [facility] [address] [place] [address] Hematocrit (Bld) [Volume fraction] 33.6 % Low 35.0-47.0 [facility] Comment on above: Performed By: #### M ACR5, HEMDF, LIPD2, CMP3 #### [facility] [address] [place] [address] Hemoglobin (Bld) [Mass/Vol] 10.9 g/dL Low 11.7-16.0 [facility] Comment on above: Performed By: #### M ACR5, HEMDF, LIPD2, CMP3 #### [facility] [address] [place] [address] Lymphocytes (Bld) [#/Vol] 1.9 10*3/uL Normal 1.0-4.3 [facility] Comment on above: Performed By: #### M ACR5, HEMDF, LIPD2, CMP3 #### [facility] [address] [place] [address] Lymphocytes/100 WBC (Bld) 31.6 % Normal 20.0-40.0 [facility] Comment on above: Performed By: #### M ACR5, HEMDF, LIPD2, CMP3 #### [facility] [address] [place] [address] MCH (RBC) [Entitic mass] 24.9 pg Low 26.0-34.0 [facility] Comment on above: Performed By: #### M ACR5, HEMDF, LIPD2, CMP3 #### [facility] [address] [place] [address] MCHC 32.3 % Normal 32.0-36.0 [facility] Comment on above: Performed By: #### M ACR5, HEMDF, LIPD2, CMP3 #### [address] [place] [address] MCV (RBC) [Entitic vol] 76.9 fL Low 79.0-98.0 [facility] Comment on above: Performed By: #### M ACR5, HEMDF, LIPD2, CMP3 #### [facility] [address] [place] [address] Monocytes (Bld) [#/Vol] 0.3 10*3/uL Normal 0.0-0.8 [facility] Comment on above: Performed By: #### M ACR5, HEMDF, LIPD2, CMP3 #### [address] [place] [address] Monocytes/100 WBC (Bld) 5.6 % Normal 2.0-10.0 [facility] Comment on above: Performed By: #### M ACR5, HEMDF, LIPD2, CMP3 #### [facility] [address] [place] [address] Platelet mean volume (Bld) [Entitic vol] 6.7 fL Low 7.4-10.4 [facility] Comment on above: Performed By: #### M ACR5, HEMDF, LIPD2, CMP3 #### [facility] [address] [place] [address] Platelets (Bld) [#/Vol] 438 10*3/uL Normal 140-440 [facility] Comment on above: Performed By: #### M ACR5, HEMDF, LIPD2, CMP3 #### [facility] [address] [place] [address] RBC (Bld) [#/Vol] 4.37 10*6/uL Normal 3.80-5.20 [facility] Comment on above: Performed By: #### M ACR5, HEMDF, LIPD2, CMP3 #### [facility] [address] [place] [address] WBC (Bld) [#/Vol] 6.2 10*3/uL Normal 3.6-10.7 [facility] Comment on above: Performed By: #### M ACR5, HEMDF, LIPD2, CMP3 #### [facility] [address] [place] [address] IronOrdered By: Carlton noguera on 06-07-2021 Iron [Mass/Vol] 56 ug/dL 37 - 170 ug/dL [facility] Work Phone: Test Performed by [facility], [facility] [address] , [place], [place] [id number] [place] [address] Work Phone: [facility] Work Phone: Iron, Totalon 06-07-2021 Iron, Total 56 ug/dL Normal 37-170 [facility] Comment on above: Performed By: #### M ACR5, HEMDF, LIPD2, CMP3 #### [facility] [address] [place] [address] Lipid Panelon 06-07-2021 Chol/HDL 3 Normal [facility] Comment on above: Result Comment: Ref Range: < 3 Low Risk for CHD 3-6 Mod Risk for CHD > 6 High Risk for CHD Performed By: #### M ACR5, HEMDF, LIPD2, CMP3 #### [facility] [address] [place] [address] Cholesterol in HDL [Mass/Vol] 50 mg/dL Normal 40-60 [facility] Comment on above: Performed By: #### M ACR5, HEMDF, LIPD2, CMP3 #### [facility] [address] [place] [address] Low Density Lipoprotein 54 mg/dL Normal <100 [facility] Comment on above: Performed By: #### M ACR5, HEMDF, LIPD2, CMP3 #### [facility] [address] [place] [address] Triglyceride [Mass/Vol] 157 mg/dL Abnormal <150 [facility] Comment on above: Performed By: #### M ACR5, HEMDF, LIPD2, CMP3 #### [facility] [address] [place] [address] Chol/HDL 3 Normal [facility] Comment on above: Result Comment: Ref Range: < 3 Low Risk for CHD 3-6 Mod Risk for CHD > 6 High Risk for CHD Performed By: #### M ACR5, HEMDF, LIPD2, CMP3 #### [facility] [address] [place] [address] Cholesterol [Mass/Vol] 135 mg/dL Normal < 200 [facility] Comment on above: Performed By: #### M ACR5, HEMDF, LIPD2, CMP3 #### [facility] [address] [place] [address] Cholesterol in HDL [Mass/Vol] 48 mg/dL Normal 40-60 [facility] Comment on above: Performed By: #### M ACR5, HEMDF, LIPD2, CMP3 #### [facility] [address] [place] [address] Low Density Lipoprotein 54 mg/dL Normal <100 [facility] Comment on above: Performed By: #### M ACR5, HEMDF, LIPD2, CMP3 #### [facility] [address] [place] [address] Triglyceride [Mass/Vol] 158 mg/dL Abnormal <150 [facility] Comment on above: Performed By: #### M ACR5, HEMDF, LIPD2, CMP3 #### [facility] [address] [place] [address] Cholesterol [Mass/Vol] 134 mg/dL Normal < 200 [facility] Comment on above: Performed By: #### M ACR5, HEMDF, LIPD2, CMP3 #### [facility] [address] [place] [address] Lipid PanelOrdered By: Hortencia Salvador on 06-07-2021 Cholesterol [Mass/Vol] 135 mg/dL <200 [facility] [employer] Work Phone: Cholesterol in HDL [Mass/Vol] 50 mg/dL 40 - 60 mg/dL [facility] Work Phone: Cholesterol in LDL [Mass/Vol] 54 mg/dL <100 [facility] Work Phone: Cholesterol.total/Chol esterol in HDL [Mass ratio] 3 {ratio} [facility] Work Phone: Comment on above: Ref Range: < 3 Low Risk for CHD 3-6 Mod Risk for CHD > 6 High Risk for CHD Triglyceride [Mass/Vol] 157 mg/dL Abnormal <150 [facility] Work Phone: Lipid PanelOrdered By: Elissa Dila on 06-07-2021 Cholesterol [Mass/Vol] 134 mg/dL <200 [facility] [employer] Work Phone: Cholesterol in HDL [Mass/Vol] 48 mg/dL 40 - 60 mg/dL [facility] Work Phone: Cholesterol in LDL [Mass/Vol] 54 mg/dL <100 [facility] Work Phone: Cholesterol.total/Chol esterol in HDL [Mass ratio] 3 {ratio} [facility] Work Phone: Comment on above: Ref Range: < 3 Low Risk for CHD 3-6 Mod Risk for CHD > 6 High Risk for CHD Triglyceride [Mass/Vol] 158 mg/dL Abnormal <150 [facility] Work Phone: Magnesiumon 06-07-2021 Magnesium [Mass/Vol] 1.5 mg/dL Low 1.6-2.3 [facility] Comment on above: Performed By: #### M ACR5, HEMDF, LIPD2, CMP3 #### [facility] [employer] [facility] [address] [place] [address] MagnesiumOrdered By: Carlton Salvador on 06-07-2021 Magnesium [Mass/Vol] 1.5 mg/dL Low 1.6 - 2 .3 mg/dL [employer] Phone: Microalbumin / Creatinine Ur ine RatioOrdered By: Elissa Dial on 06-07-2021 Albumin/Creatinine DL <= 20 mg/L (24H U) [Mass ratio] 14.1 mg/L 0.0 - 29.9 mg/L [employer] Work Phone: Comment on above: Microalbumin concent rations <30 are considered normal, 30-300 are considered microalbuminuria (or risk of diabetic nephropathy), and >300 are considered clinical albuminuria (clinical nephropathy). Diabetes Care,27, Supplement 1, D92003 Albumin/Creatinine DL <= 20 mg/L (U) [Ratio] 8.8 mg/g 0.0 - 29.9 mg/g [employer] Phone: Creatinine (U) [Mass/Vol] 160.1 mg/dL No Range [employer] Work Phone: Test Performed by [facility], [address] , [place], [place] [address] [employer] Work Phone: [employer] Phone: Microalbumin/Creat Ratioon 0 06-07-2021 Microalb/Creat Ratio 8.8 mg/g Normal 0.0-29.9 [facility] [employer] Comment on above: Performed By: #### M ACR5, HEMDF, LIPD2, CMP3 #### [facility] [address] [address] Microalbumin, Ur 14.1 mg/L Normal 0.0-29.9 [facility] Comment on above: Result Comment: Micr oalbumin concentrations <30 are considered normal, 30-300 are considered microalbuminuria (or risk of diabetic nephropathy), and >300 are considered clinical albuminuria (clinical nephropathy). Diabetes Care,27, Supplement 1, K82003 Performed By: #### M ACR5, HEMDF, LIPD2, CMP3 #### [facility] [address] [place] [address] Creatinine, Ur Random 160.1 mg/dL Normal No Range [facility] Comment on above: Performed By: #### M ACR5, HEMDF, LIPD2, CMP3 #### [facility] [address] [place] [address] No Panel InformationOrdered By: Carlton Salvador on 06-07-2021 Test Performed by [facility], [address] , [place] [address] [facility] Work Phone: [facility] Work Phone: Interpretation and review of laboratory results Abnormal [facility] Work Phone: Test Performed by [facility], [address] , [place] [address] [facility] Work Phone: [facility] Work Phone: No Panel InformationOrdered By: Elissa Dial on 06-07-2021 Interpretation and review of laboratory results Abnormal [facility] Work Phone: Test Performed by [facility], [address] , [place] [address] [facility] Work Phone: [facility] Work Phone: TSH without ReflexOrdered By : Carlton Salvador on 06-07-2021 TSH Qn 2.545 u[IU]/mL 0.465 - 4.680 u[IU]/mL [facility] Work Phone: Test Performed by [facility], [address] , [address] Work Phone: [facility] Work Phone: Thyroid Stim. Hormoneon 05-25 Thyroid Stim. Hormone 2.545 u[IU]/mL Normal 0.465-4.68 0 [facility] Comment on above: Performed By: #### M ACR5, HEMDF, LIPD2, CMP3 #### [facility] [address] [place] [address] Vit D 25-OH, Totalon 021 Vit D 25-OH, Total 16 ng/mL Low 30-100 [facility] Comment on above: Result Comment: Ther apy is based on measurement of Total 25- OHD with the following classification levels: Less than 20 ng/mL: Indicative of Vit D deficiency 20-30 ng/mL: Suggests Vit D insufficiency Optimal: Greater than or equal to 30 ng/mL Test performed by [employer]etitive Immunoassay, measuring Total Vitamin D, not individual fractions. Performed By: #### M G3, K3 #### [facility] [address] [place] [address] Vitamin B12on 06-07-2021 Cobalamin (Vitamin B12) [Mass/Vol] 213 pg/mL Low 239-931 [facility] Comment on above: Performed By: #### M ACR5, HEMDF, LIPD2, CMP3 #### [facility] [address] [place] [address] Vitamin [id number] By: Hortencia Salvador on 06-07-2021 Cobalamin (Vitamin B12) [Mass/Vol] 213 pg/mL Low 239 - 931 pg/mL [employer] Work Phone: Interpretation and review of laboratory results Abnormal [employer] Work Phone: Vitamin D 25 HydroxyOrdered By: Carlton Salvador on 06-07-2021 Interpretation and review of laboratory results Abnormal [facility] Work Phone: Vit D, 25-Hydroxy 16 ng/mL Low 30 - 100 ng/mL [employer] Work Phone: Comment on above: Therapy is based on measurement of Total 25-OHD with the following classification levels: Less than 20 ng/mL: Indicative of Vit D deficiency 20-30 ng/mL: Suggests Vit D insufficiency Optimal: Greater than or equal to 30 ng/mL Test performed by [employer]etitive Immunoassay, measuring Total Vitamin D, not individual fractions. Test Performed by [facility], [address] [facility]. [place], [place] [address] [facility] Work Phone: [employer] Work Phone: Glucose,Bedsideon 05-31-2021 Glucose [Mass/Vol] 169 mg/dL High 70-100 [facility] Comment on above: Result Comment: Test performed by glucose meter. Results may be 10%-15% lower than serum/plasma values. (CLIA ID [id number]) Performed By: #### B GLU #### [facility] [address] [place] [id number] [facility] ENDOSCOPY REPORTOrdered B y: 3m Scanning on 05-31-2021 [facility] Work Phone: POCT GlucoseOrdered By: Tung Curry on 05-31-2021 Glucose [Mass/Vol] 169 mg/dL High 70 - 100 mg/dL [facility] Work Phone: Comment on above: Test performed by gl ucose meter. Results may be 10%-15% lower than serum/plasma values. (CLIA ID [id number]) Interpretation and review of laboratory results Abnormal [facility] Work Phone: Test Performed by [employer], [address] [place] [id number] [place] [address] Work Phone: [facility] Work Phone: Surgical Pathologyon 021 Surgical Pathology [id number] [facility] PATHOLOGY AND LABORATORY MEDICINE [address] [place] [id number] FINAL SURGICAL PATHOLOGY REPORT NAME: HEAVEN MONROE : 1955 65 Y F BILLING NO.: [id number] LOCATION: 1XEO PROCEDURE 05/31/2021 DATE: SURGEON: TUNG CURRY M.D. RECEIVED 05/31/2021 DATE: ATTENDING: TUNG CURRY M.D. REPORT DATE: 06/04/2021 COPIES TO: DIAGNOSIS: A. STOMACH, ANTRUM, BIOPSY - REACTIVE GASTROPATHY WITH CHRONIC INFLAMMATION Comment: H&E stain is negative for H. pylori. No significant active inflammation present. Negative for intestinal metaplasia or malignancy. B. STOMACH, POLYPECTOMY - FUNDIC GLAND POLYP Comment: Fundic gland polyps are commonly seen in the setting of proton pump inhibitor therapy, though they may be seen idiopathically, or as a component of the familial adenomatous polyposis syndrome. Intestinal metaplasia is not identified. CRH/CRH Signature> EDWARD MENDIETA M.D. CLINICAL INFORMATION: GERD SPECIMEN: (A) GASTRIC BIOPSY (B) GASTRIC POLYP, BIOPSY GROSS DESCRIPTION: A. Received in formalin labeled antral biopsy are two segments of harris tissue 0.3 and 0.4 cm. The specimen is entirely submitted in a single cassette. B. Received in formalin labeled gastric polyp is a segment of harris tissue 0.4 cm. The specimen is entirely submitted in a single cassette. [id number] Disclaimer: The following statement applies to all immunohistochemistry , in situ hybridization, molecular studies, and immunofluorescence testing. The use of one or more reagents in the above tests is regulated as an analyte specific reagent (ASR). These tests were developed and their performance characteristics determined by the clinical laboratories of [facility]. They have not been cleared by the US Food and Drug Administration (FDA). The FDA has determined that such clearance or approval is not necessary. All the above immunostains were performed on paraffin embedded tissue. Appropriate positive and negative controls (where applicable) were run in parallel with the patient's specimen; these controls showed expected staining pattern, with acceptable intensity of staining. Immunohistochemical assays have not been validated on decalcified tissues. Results should be interpreted with caution given the raised possibility of false negativity on decalcified specimens. Professional Performing Location: [address] [address]. DEPARTMENT OF PATHOLOGY AND LABORATORY MEDICINE [place], [place] [address] [email or web address] Normal [facility] PROGRESSon 02-05-2020 PROGRESS HNO ID: [id number] Author: Diana Mckoy Service: ? Author Type: Nurse Practitioner Type: Progress Notes Filed: 02/05/2020 10:07 AM Note Text: AMBULATORY TELEPHONE VISIT Blaise Monroe has consented to this telephone encounter. Persons Present: patient Chief Complaint/Reason: follow up HPI: Blaise Monroe is a 64 year old woman with a history of factor V Leiden w/ multiple DVT's and PE's, DMII, HLD, HTN and chronic diastolic heart failure who presents for a telephone visit today in the heart failure clinic at the request of Dr. Galvan. The patient is followed by Dr. Galvan from cardiology and was most recently seen by him via virtual visit on 01/19/2020 at which time her HF was stable. Today Blaise reports that she is overall feeling, pretty good, and has had no major changes in her sx burden. She is not currently tracking her weights on a daily basis and states, I actually forgot that I was supposed to be doing that daily. Her most recent weight was obtained on her home scale last week and reports that it was 277 lbs. She continues to endorse dyspnea with moderate to heavy exertion at baseline and this remains unchanged at this time. She also endorses cough upon waking with mucus production, but attributes this to her, asthma, and sleeping with her bipap machine. Has what she describes as, minimal swelling, in her feet at baseline (R>L) and that the, water pills, have remained effective in controlling any exacerbation of edema. Does experience what she describes as intermittent episodes of self-limited, heart fluttering, that can last hours and are not associated with any other sx's. Notes she has not experienced one of these episodes in over 1 week. Energy is being reported as low for, quite a while now, and appetite reported as, too good- now that's the problem. Reports following a low sodium diet and does not add salt to her food nor does she cook with food. States that she tries to be mindful about looking at the sodium content on food labels and always opts for a low salt or no salt alternative when possible. Today Blaise does complain of an episode of what she describes as, sharp chest pain, since her most recent visit with Dr. Galvan. States that the pain started above her left breast and that it lasted for the better part of the day. Again, describes this pain as sharp in nature. It did not radiate. She denies any alleviating or aggravating factors. Verbalizes, I just kept hoping it would go away and it finally did. No other associated sx's reported during this episode and it has not happened again. She does see her 2 year old grandson on a fairly regular basis and questioned whether it could have been a result of her picking him up frequently. She denies any change/increase in dyspnea, orthopnea, PND, syncope, dizziness or lightheadedness not associated with position changes. No recent change in cough, fever, chills, nausea, vomiting, diarrhea, myalgias or malaise. REVIEW OF SYSTEMS GENERAL: No weight loss, malaise or fevers HEENT: Negative for frequent or significant headaches, No changes in hearing or vision, no nose bleeds or other nasal problems NECK: Negative for lumps, goiter, pain and significant neck swelling RESPIRATORY: See HPI CARDIOVASCULAR: See HPI GI: No nausea, vomiting, or diarrhea : No history of dysuria, frequency or incontinence, hx of frequent UTI; managed by PCP and urology MUSCULOSKELETAL: chronic generalized arthritic pain SKIN: Negative for lesions, rash, and itching PSYCH: Positive for depression: appropriately managed w/ medication HEMATOLOGY/LYMPHOLOG Y: Negative for prolonged bleeding, bruising easily or swollen nodes ENDOCRINE: Negative for cold or heat intolerance, polyuria, polydipsia and goiter NEURO: No history of headaches, syncope, paralysis, seizures or tremors Data Reviewed: no recent data availabe in record at time of visit Assessment: (I50.32) Chronic diastolic congestive heart failure (HCC) (primary encounter diagnosis) (E78.5) Hyperlipidemia, unspecified hyperlipidemia type (I10) Essential hypertension, benign (R06.00) Dyspnea on exertion (R53.83) Other fatigue (R60.9) Edema, unspecified type (Z79.899) custodial current use of diuretic (E66.9) Generalized obesity Blaise Monroe is a 64 year old woman with a history of factor V Leiden w/ multiple DVT's and PE's, DMII, HLD, HTN and chronic diastolic heart failure who presents for a telephone visit today in the heart failure clinic at the request of Dr. Galvan. Overall, HF sx burden appears to remain stable and she reports nothing to suggest that she is experiencing an acute on chronic exacerbation of her heart failure. She does however have concerns regarding an episode of chest pain since her most recent visit with cardiology. Plan: 1. Will directly communicate pt's complaint of sharp chest pain to her cardiology time. 2. Discussed role of CHF clinic in the ongoing management of her HF care. Identified and reviewed triggers for calling the office. 3. Continue all current medications as instructed; no changes made today. 4. Discussed, at length, the importance of beginning to track and monitor daily weights. Discussed how acute weight gain in the setting of HF dx can be the earliest indicator of cardiac decompensation. Instructed to contact office with any weight gain of 3-4 lbs over 1-4 days. 5. Reviewed sodium and fluid restrictions. Discussed proper way to read a food label. Instructed to limit dietary sodium to < 2000 mg/day. 6. Given recent complain of chest pain, asked pt to continue to hold on aggressive aerobic exercise for now until further instruction is given by myself or cardiology team. 7. Reviewed red flag s/sx's of cardiac/respiratory emergency and instructed pt to seek emergency medical attention via 911 or the ED should any of these present. 8. Pt provided with all direct contact information for CHF clinic. 9. Pt to f/u w/ Casandra Sanabria CNP on 02/17/2020 and will rtc prn or with any change/increase in sx burden. 10. Pt verbalizes understanding and is agreeable to plan. Total Time Spent: 40 minutes Diana Mckoy APRN.CNP [facility] Telephone ([facility]) BLAISE MONROE ( ) 1955 F Date Time Provider Department 01/20/20 DIANA MCKOY (JESSE) [facility] During your visit today, we recorded the following information about you: Diana Mckoy APRN.CNP 01/20/2020 8:46 AM Signed 8:45 AM Call placed to pt in an attempt to schedule CHF clinic visit after receiving referral from Dr. Galvan. Pt reached and explained same. Appointment made for distance health visit on 02/03/2020 with myself. Provided pt with all direct contact information for CHF clinic and instructed to call with any questions or concerns that may arise prior to our scheduled appointment. Pt is agreeable to plan and verbalizes understanding. Diana Mckoy DNP, PEREZ, [employer]OURCE CONSERVATION MANAGER Allergies As of Date: 01/20/2020 Noted Allergy Reaction CLINDAMYCIN 01/19/2020 4 - Hives Date Reviewed: 01/19/2020 Reviewed by: Rigoberto Galvan, - Fully Assessed Reason for Visit: Future Appointment [256] Problem List As Of Date 01/20/2020 Noted Resolved HTN (hypertension) [I10] Mixed hyperlipidemia [E78.2] Factor 5 Leiden mutation, heterozygous (HCC) [D* Chronic diastolic CHF (congestive heart failure*01/19/2020 Encounter Status:Closed by DIANA MCKOY APRN.CNP on 01/20/20 [facility] Lab Report: Miscellaneous La b Procedureon 09-12-2017 [facility] LAB TEST . Invalid Interpretation Code [facility] Visiton 04-27-2017 Dietary management education, guidance, and counseling (procedure) yes Invalid Interpretation Code [employer] Work Phone: Documentation of current medications (procedure) Done Invalid Interpretation Code [employer] [facility] [employer] Work Phone: Fall risk assessment No Invalid Interpretation Code [employer] [facility] [employer] Work Phone: Protein mass conc Done [employer] Work Phone: Tobacco smoking status NHIS Tobacco smoking status NHIS Invalid Interpretation Code [facility] Tobacco smoking status NVIS Never smoker [employer] Work Phone: Tobacco use [facility] Never smoker Invalid Interpretation Code [employer] [facility] [employer] Work Phone: Replaced Document: Ottoniel Carvajal 04-27-2017 EKG QRS axis 14 deg Invalid Interpretation Code [employer] Work Phone: electrocardiogram interpretation 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 ABNORMAL Invalid Interpretation Code [employer] Work Phone: P [place] 52 deg Invalid Interpretation Code [employer] Work Phone: P wave axis, electrocardiogram 52 deg Invalid Interpretation Code [employer] Work Phone: CT Interval 154 ms Invalid Interpretation Code [employer] Work Phone: CT interval, electrocardiogram 154 ms Invalid Interpretation Code [employer] [facility] [employer] [facility] Work Phone: Pulse (Heart Rate) 74 /min Invalid Interpretation Code [employer] [facility] [employer] [facility] Work Phone: QRS axis, electrocardiogram 14 deg Invalid Interpretation Code [employer] [facility] [employer] [facility] Work Phone: QRS Duration 100 ms Invalid Interpretation Code [employer] Work Phone: QRS duration, electrocardiogram 100 ms Invalid Interpretation Code [employer] [facility] [employer] [facility] Work Phone: QT Interval new path ms Invalid Interpretation Code [employer] [facility] [employer] Work Phone: QT interval, electrocardiogram new path ms Invalid Interpretation Code [employer] Work Phone: QTc [place] 404 ms [facility] Work Phone: T [place] 30 deg Invalid Interpretation Code [facility] Work Phone: T wave axis, electrocardiogram 30 deg Invalid Interpretation Code [facility] Work Phone: Chart Maintenanceon 02-03-20 17 HbA1c 7.7 % Invalid Interpretation Code [facility] Work Phone: Rx Refill: eRx Request for S ERTRALINE HCL 100 MG ORAL TABSon 05-07-2016 e-scripts messenger refill request [id number]- [id number]`SERTR KELVIN HCL 100 MG ORAL TABS```60 Tablet`30`Two tablets by mouth daily``6`0` 6`04/09/2016`Emiliee Quoc [facility]*`[id number] `[id number]``SERTRA LINE HCL 100 MG TABLET Quantity: 60 Tablet Instructions: take 2 tablets by mouth daily [facility] Work Phone: [facility]_ [id number]- [id number]`SERTR KELVIN HCL 100 MG ORAL TABS```60 Tablet`30`Two tablets by mouth daily``6`0` 6`04/09/2016`[facility]*`[id number] `[id number]``SERTRA LINE HCL 100 MG TABLET Quantity: 60 Tablet Instructions: take 2 tablets by mouth daily [facility] Work Phone: Nurse Visit: INRon 6 Coagulation tissue factor induced in platelet poor plasma . Invalid Interpretation Code [facility] Work Phone: INR Coag RelTime (PPP) 3.3 {INR} Invalid Interpretation Code [facility] Work Phone: INR in blood by coagulation Fingerstick Invalid Interpretation Code [facility] Work Phone: INR in blood by coagulation 3.3 {INR} Invalid Interpretation Code [facility] Work Phone: INR in blood by coagulation 2 to 3 Invalid Interpretation Code [facility] Work Phone: international normalized ratio (INR) range 2 to 3 [facility] Work Phone: Office Visit: F/u 3 MO DM II on 04-04-2016 Documentation of current medications (procedure) Done Invalid Interpretation Code [facility] Work Phone: HbA1c 6.9 % [facility] Work Phone: Protein mass conc Done [facility] Work Phone: Tobacco smoking status NHIS Never Invalid Interpretation Code [facility] Work Phone: Tobacco smoking status NHIS Never smoker [employer] [facility] [employer] Work Phone: Tobacco use [facility] Never smoker Invalid Interpretation Code [facility] Work Phone: Replaced Document: (P) Dulce c Disease Profileon 11-12-2015 Endomysial Antibody IGA Screen, Serum Negative Invalid Interpretation Code Negative [facility] Work Phone: ENDOMYSIAL IGA Negative Invalid Interpretation Code Negative [facility] Work Phone: IgA 254 mg/dL Invalid Interpretation Code 91-414 [facility] [employer] [facility] Work Phone: TTG (tissue transglutaminase antibody) <2 U/mL Invalid Interpretation Code 0-3 [facility] Work Phone: tTG IGA <2 U/mL Invalid Interpretation Code 0-3 [facility] Work Phone: Lab Report: Basic Metabolic Profile (BMP)on 10-02-2015 Anion gap 7 mmol/L Invalid Interpretation Code 5-15 [facility] Work Phone: Anion gap molar conc 7 mmol/L 5-[address] [facility] Work Phone: BUN/Creatinine Ratio 19.2 RATIO Invalid Interpretation Code 10-20 [facility] Work Phone: Calcium 9.0 mg/dL Invalid Interpretation Code 8.5-10.1 [facility] Work Phone: Chloride 105 mmol/L Invalid Interpretation Code 98-107 [facility] Work Phone: CO2 30.0 mmol/L Invalid Interpretation Code 21.0-32.0 [facility] Work Phone: CO2 ppres (BldV) 30.0 mmol/L 21.0-32.0 [facility] Work Phone: Creatinine 0.57 mg/dL Invalid Interpretation Code 0.55-1.20 [facility] Work Phone: Creatinine 89.50 mL/min Invalid Interpretation Code [facility] Work Phone: eGFR (non-black) 138 mL/min/{1.73_m2} Invalid Interpretation Code >60 [facility] Work Phone: eGFR (non-black) 114 mL/min/{1.73_m2} Invalid Interpretation Code >60 [facility] Work Phone: EST GFR - AA 138 mL/min >60 [facility] Work Phone: Glucose 120 mg/dL High 70-110 [facility] Work Phone: Glucose mass conc 120 mg/dL High 70-110 [facility] Work Phone: Potassium 3.2 mmol/L Low 3.5-5.1 [facility] Work Phone: Sodium 142 mmol/L Invalid Interpretation Code 136-145 [facility] Work Phone: Urea nitrogen 11 mg/dL Invalid Interpretation Code 7-18 [facility] Work Phone: Lab Report: CBC W/Diff, Auto matedon 10-02-2015 Absolute Neut 3.9 X10 3/UL Invalid Interpretation Code 2.0-7.7 [facility] Basophils/100 leukocytes 0.1 % Invalid Interpretation Code 0-1 [facility] Work Phone: Basophils/100 WBC (Bld) 0.1 % 0-1 [facility] Work Phone: Eosinophils/100 leukocytes 2.6 % Invalid Interpretation Code 0-5 [facility] Work Phone: Eosinophils/100 WBC (Bld) 2.6 % 0-5 [facility] Work Phone: Erythrocyte distribution width Ratio (RBC) 43.6 fL 35.1-43.9 [facility] Work Phone: Erythrocyte distribution width Ratio (RBC) 14.2 % 11.6-14.6 [facility] Work Phone: Erythrocytes (RBC) 4.67 10*6/uL Invalid Interpretation Code 4.2-5.4 [employer] Work Phone: Hematocrit (HCT) 40.1 % Invalid Interpretation Code 37-47 [facility] Work Phone: Hematocrit Volume Fraction (Bld) 40.1 % 37-47 [employer] Work Phone: Hemoglobin (HGB) 13.3 g/dL Invalid Interpretation Code 12.0-15.0 [employer] Work Phone: Immature granulocytes #/vol (Bld) 0.300 % 0.0-0.9 [employer] Work Phone: immature granulocytes, percentage of total cells, blood 0.300 % Invalid Interpretation Code 0.0-0.9 [employer] Work Phone: Immature granulocytes/100 WBC (Bld) 0.300 % Invalid Interpretation Code 0.0-0.9 [facility] Lymphocytes 2.44 X10 3/UL Invalid Interpretation Code 0.83-4.51 [facility] Work Phone: Lymphocytes #/vol (Bld) 2.44 X10 3/UL 0.83-4.51 [facility] Work Phone: Lymphocytes/100 leukocytes 35.2 % Invalid Interpretation Code 19-41 [facility] Work Phone: Lymphocytes/100 WBC (Bld) 35.2 % 19-41 [facility] Work Phone: MCH 28.5 pg Invalid Interpretation Code 27.0-32.0 [facility] [employer] [facility] Work Phone: MCH Entitic mass (RBC) 28.5 pg 27.0-32.0 [facility] Work Phone: MCHC 33.2 G/GL Invalid Interpretation Code 32-36 [facility] Work Phone: MCHC mass conc (RBC) 33.2 G/GL 32-[address] [facility] Work Phone: MCV 85.9 fL Invalid Interpretation Code 81-99 [facility] Work Phone: MCV Entitic volume (RBC) 85.9 fL 81-99 [facility] Work Phone: Monocytes/100 leukocytes 5.9 % Invalid Interpretation Code 0-10 [facility] Work Phone: Monocytes/100 WBC (Bld) 5.9 % 0-10 [facility] Work Phone: neutrophil count, blood 3.9 X10 3/UL Invalid Interpretation Code 2.0-7.7 [facility] Work Phone: Neutrophils #/vol (Bld) 3.9 X10 3/UL 2.0-7.7 [facility] Work Phone: Neutrophils/100 leukocytes 55.9 % Invalid Interpretation Code 47-70 [facility] Work Phone: Neutrophils/100 WBC (Bld) 55.9 % 47-70 [facility] Work Phone: Platelet mean volume Entitic volume (Bld) 8.7 fL 6.2-12.0 [facility] Work Phone: Platelets 433 10*3/mm3 Invalid Interpretation Code 150-450 [facility] Work Phone: Platelets #/vol (Bld) 433 10*3/mm3 150-450 [facility] Work Phone: PMV by Chase 8.7 fL Invalid Interpretation Code 6.2-12.0 [facility] Work Phone: RBC #/vol (Bld) 4.67 10*6/uL 4.2-5.4 [facility] Work Phone: RDW SD 43.6 fL Invalid Interpretation Code 35.1-43.9 [facility] RDW-CA 14.2 % Invalid Interpretation Code 11.6-14.6 [facility] Work Phone: red blood cell distribution width, size density 43.6 fL Invalid Interpretation Code 35.1-43.9 [facility] Work Phone: WBC #/vol (Bld) 6.9 10*3/uL 4.4-11.0 [facility] Work Phone: WBC (Leukocytes) 6.9 10*3/uL Invalid Interpretation Code 4.4-11.0 [facility] Work Phone: Lab Report: Prothrombin Time w/INRon 10-02-2015 Coagulation tissue factor induced in platelet poor plasma 19.2 s High 11.7-14.9 [facility] Work Phone: Lab Report: Troponin-Ion Troponin I ng/mL Invalid Interpretation Code <0.06 [facility] Work Phone: Lab Report: Comprehensive Mi tabolic Profilon 09-22-2015 Alanine aminotransferase (ALT) 25 U/L Invalid Interpretation Code 12-78 [facility] Work Phone: Albumin 3.2 g/dL Low 3.4-5.0 [facility] Work Phone: Albumin/Globulin Ratio 0.8 {ratio} Low 0.9-2.4 [facility] Work Phone: Alkaline phosphatase (ALP) 74 U/L Invalid Interpretation Code 50-136 [facility] Work Phone: ALP enzyme act/vol (Bld) 74 U/L 50-136 [facility] Work Phone: Aspartate aminotransferase (AST) 15 U/L Invalid Interpretation Code 15-37 [facility] Work Phone: Bilirubin (total) 0.20 mg/dL Invalid Interpretation Code 0.20-1.00 [facility] Work Phone: Globulin 3.8 g/dL High 2.3-3.5 [facility] Work Phone: Globulin mass conc (S) 3.8 g/dL High 2.3-3.5 [facility] Work Phone: Protein 7.0 g/dL Invalid Interpretation Code 6.4-8.2 [facility] Work Phone: Lab Report: Lipid Profileon 09-22-2015 Cholesterol 139 mg/dL Invalid Interpretation Code 200 [facility] Work Phone: HDL Cholesterol 48 mg/dL Invalid Interpretation Code [facility] Work Phone: LDL Cholesterol 65 mg/dL Invalid Interpretation Code 0-130 [facility] Work Phone: Triglyceride 132 mg/dL Invalid Interpretation Code [facility] Work Phone: very low density lipoproteins 26 mg/dL Invalid Interpretation Code 5-40 [facility] Work Phone: Lab Report: Microalb:Creat R atio,Random URon 09-22-2015 ACR (microalbumin/creatini ne) ratio 13.2 MG/G CRE Invalid Interpretation Code <30 mg/g CRE [facility] Work Phone: Albumin/Creatinine DL <= 20 mg/L Ratio (U) 13.2 MG/G CRE <30 mg/g CRE [facility] Work Phone: Urine, creatinine 87.80 mg/dL Invalid Interpretation Code NO RANGE EST. [facility] Work Phone: Urine, microalbumin 1.16 mg/dL Invalid Interpretation Code Units converted. See lab report for original value. [facility] Work Phone: Replaced Document: (P) PAP I -G w/rfx hrHPVon 08-26-2015 [employer] use only - for [employer] import when terms are not otherwise specified Comment Invalid Interpretation Code . [facility] Work Phone: Lab Report: Urinalysis, Rout ine (Dipstick)on 07-30-2015 Albumin Ql (U) Negative Negative [facility] Work Phone: Bilirubin Ql (U) Negative Invalid Interpretation Code Negative [facility] Work Phone: Ketones mass conc (U) Negative Negative [facility] Work Phone: NITRITE UR Negative Invalid Interpretation Code Negative [facility] Nitrite Urine Negative Invalid Interpretation Code Negative [facility] Work Phone: Occult Blood, urine 10 High Negative [facility] Work Phone: OCCULT BLOOD-UR 10 High Negative [facility] Work Phone: pH (U) 7.0 [pH] 5.0 - 8.0 [facility] Work Phone: specific gravity, urine 1.015 Invalid Interpretation Code 1.002-1.030 [facility] Work Phone: Urine, bilirubin presence Negative Invalid Interpretation Code Negative [facility] Work Phone: Urine, clarity Sl. Cloudy Invalid Interpretation Code Clear [facility] Work Phone: Urine, color Yellow Invalid Interpretation Code Yellow [facility] Work Phone: Urine, glucose presence Normal mg/dl Invalid Interpretation Code Normal [facility] Work Phone: Urine, ketones presence Negative Invalid Interpretation Code Negative [facility] Work Phone: Urine, leukocyte esterase presence 25 High Negative [facility] Work Phone: Urine, pH 7.0 [pH] Invalid Interpretation Code 5.0 - 8.0 [facility] Work Phone: Urine, protein Negative Invalid Interpretation Code Negative [facility] Work Phone: UROBILI Normal mg/dl Invalid Interpretation Code Normal [facility] urobilinogen, urine, by dipstick Normal mg/dl Invalid Interpretation Code Normal [facility] Work Phone: Lab Report: Urinalysis, Comp leteon 04-26-2015 Bacteria LM.HPF #/area (Urine sed) 0 SEEN /hpf None Seen [facility] Work Phone: Mucus Ql (Urine sed) [address] [facility] Work Phone: Urine, bacteria in sediment 0 /[HPF] Invalid Interpretation Code None Seen [facility] Work Phone: Urine, epithelial cells in sediment 0-5 SEEN Invalid Interpretation Code 5-10 [facility] Work Phone: Urine, erythrocytes in sediment by volume 0-5 SEEN Invalid Interpretation Code 0-5 [facility] Work Phone: Urine, mucus presence in sediment 0 SEEN Invalid Interpretation Code [facility] Work Phone: WBC #/vol (Bld) 0-5 SEEN 0-5 [facility] Work Phone: WBC (Leukocytes) 0-5 SEEN Invalid Interpretation Code 0-5 [facility] Work Phone: Lab Report: CBC W/Diff, Auto matedon 03-02-2015 Absolute Neut 5.2 X10 3/UL Invalid Interpretation Code 2.0-7.7 [facility] Work Phone: Absolute Neutrophil count 5.2 X10 3/UL Invalid Interpretation Code 2.0-7.7 [facility] Work Phone: Lymphocytes 2.41 X10 3/UL Invalid Interpretation Code 0.83-4.51 [facility] Work Phone: Lymphocytes #/vol (Bld) 2.41 X10 3/UL 0.83-4.51 [facility] Work Phone: Lab Report: Lipaseon 015 LIPASE 69 U/L Low 70-290 [facility] Work Phone: lipase, serum 69 U/L Low 70-290 [facility] Work Phone: Clostridium difficile detect ion by polymerase chain reaction C. difficile DNA IRENE+probe Ql (Unsp spec) [facility] Work Phone: Culture, urine Bacteria identified Cx Nom (U) Proteus mirabilis [facility] Work Phone: Vital Signs Date Time Vital Sign Value Performing Clinician Facility 07-14-2025 13:55-0400 Body height 160 cm Allen Herndon MD Work Phone: [facility] 07-14-2025 13:55-0400 Body height 160.02 cm Allen Herndon MD Work Phone: [facility] 07-14-2025 13:55-0400 Body mass index (BMI) [Ratio] 40.89 kg/m2 Allen Herndon MD Work Phone: [facility] 07-14-2025 13:55-0400 Body weight 105 kg Allen Herndon MD Work Phone: [facility] 07-14-2025 13:55-0400 Body weight 104.33 kg Allen Herndon MD Work Phone: [facility] 07-14-2025 13:55-0400 BP SITE #1 Allen Herndon MD Work Phone: [facility] 07-14-2025 13:55-0400 Diastolic blood pressure 73 mm[Hg] Allen Herndon MD Work Phone: [facility] 07-14-2025 13:55-0400 Heart rate 97 /min Allen Herndon MD Work Phone: [facility] 07-14-2025 13:55-0400 HGHTCHNVIS Allen Herndon MD Work Phone: [facility] 07-14-2025 13:55-0400 Systolic blood pressure 126 mm[Hg] Allen Herndon MD Work Phone: [facility] 07-14-2025 13:55-0400 VITALSDONE Allen Herndon MD Work Phone: [facility] 05-13-2025 12:48-0400 Body height 160 cm Allen Herndon MD Work Phone: [facility] 05-13-2025 12:48-0400 Body height 160.02 cm Allen Herndon MD Work Phone: [facility] 05-13-2025 12:48-0400 Body mass index (BMI) [Ratio] 40.89 kg/m2 Allen Herndon MD Work Phone: [facility] 05-13-2025 12:48-0400 Body weight 105 kg Allen Herndon MD Work Phone: [facility] 05-13-2025 12:48-0400 Body weight 104.33 kg Allen Herndon MD Work Phone: [facility] 05-13-2025 12:48-0400 BP SITE #1 Allen Herndon MD Work Phone: [facility] 05-13-2025 12:48-0400 Diastolic blood pressure 81 mm[Hg] Allen Herndon MD Work Phone: [facility] 05-13-2025 12:48-0400 Heart rate 91 /min Allen Herndon MD Work Phone: [facility] 05-13-2025 12:48-0400 HGHTCHNVIS Allen Herndon MD Work Phone: [facility] 05-13-2025 12:48-0400 Systolic blood pressure 129 mm[Hg] Allen Herndon MD Work Phone: [facility] 05-13-2025 12:48-0400 VITALSDONE Allen Herndon MD Work Phone: [facility] 11-01-2024 03:30-0500 Heart rate 74 /min LENNY CESPEDES MD [facility] 11-01-2024 03:30-0500 Respiratory rate 19 /min LENNY CESPEDES MD [facility] 11-01-2024 02:57-0500 Diastolic Blood Pressure Non-Invasive 70 mm[Hg] LENNY CESPEDES MD [facility] 11-01-2024 02:57-0500 Heart rate 82 /min LENNY CESPEDES MD [facility] 11-01-2024 02:57-0500 Respiratory rate 17 /min LENNY CESPEDES MD [facility] 11-01-2024 02:57-0500 Systolic Blood Pressure Non-Invasive 125 mm[Hg] LENNY CESPEDES MD [facility] 11-01-2024 02:31-0500 Diastolic Blood Pressure Non-Invasive 73 mm[Hg] LENNY CESPEDSE MD [facility] 11-01-2024 02:31-0500 Heart rate 71 /min LENNY CESPEDES MD [facility] 11-01-2024 02:31-0500 Respiratory rate 18 /min LENNY CESPEDES MD [facility] 11-01-2024 02:31-0500 Systolic Blood Pressure Non-Invasive 142 mm[Hg] LENNY CESPEDES MD [facility] 11-01-2024 01:23-0500 Body temperature 98.06 [degF] LENNY CESPEDES MD [facility] 11-01-2024 01:23-0500 Body weight 102.8 kg LENNY CESPEDES MD [facility] 11-01-2024 01:23-0500 Diastolic Blood Pressure Non-Invasive 82 mm[Hg] LENNY CESPEDES MD [facility] 11-01-2024 01:23-0500 Systolic Blood Pressure Non-Invasive 144 mm[Hg] LENNY CESPEDES MD [facility] 07-04-2024 11:35-0400 Body height 160 cm Mikayla Frazier MD Work Phone: [facility] 07-04-2024 11:35-0400 Body mass index (BMI) [Ratio] 40.18 kg/m2 Mikayla Frazier MD Work Phone: [facility] 07-04-2024 11:35-0400 Body weight 102.88 kg Mikayla Frazier MD Work Phone: [facility] 07-04-2024 11:35-0400 Diastolic blood pressure 80 mm[Hg] Mikayla Frazier MD Work Phone: [facility] 07-04-2024 11:35-0400 Heart rate 88 /min Mikayla Frazier MD Work Phone: [facility] [employer] 07-04-2024 11:35-0400 Systolic blood pressure 158 mm[Hg] Mikayla Frazier MD Work Phone: [facility] 04-23-2024 13:22-0400 Body height 160 cm Mikayla Frazier MD Work Phone: [facility] 04-23-2024 13:22-0400 Body mass index (BMI) [Ratio] 40.35 kg/m2 Mikayla Frazier MD Work Phone: [facility] [employer] 04-23-2024 13:22-0400 Body weight 103.33 kg Mikayla Frazier MD Work Phone: [facility] 04-23-2024 13:22-0400 Diastolic blood pressure 81 mm[Hg] Mikayla Frazier MD Work Phone: [facility] [employer] 04-23-2024 13:22-0400 Heart rate 102 /min Mikayla Frazier MD Work Phone: [facility] [employer] 04-23-2024 13:22-0400 Systolic blood pressure 126 mm[Hg] Mikayla Frazier MD Work Phone: [facility] 04-09-2024 00:02-0400 Body height 160 cm CARLOS MAYS DO [facility] 04-09-2024 00:02-0400 Body temperature 97.34 [degF] CARLOS MAYS DO [facility] 04-09-2024 00:02-0400 Body weight 102.3 kg CARLOS MAYS DO [facility] 04-09-2024 00:02-0400 Diastolic Blood Pressure Non-Invasive 84 mm[Hg] CARLOS MAYS DO [facility] 04-09-2024 00:02-0400 Heart rate 75 /min CARLOS MAYS DO [facility] 04-09-2024 00:02-0400 Respiratory rate 18 /min CARLOS MAYS DO [facility] 04-09-2024 00:02-0400 Systolic Blood Pressure Non-Invasive 147 mm[Hg] CARLOS MAYS DO [facility] 02-27-2024 12:26-0400 Body height 160 cm Mikayla Frazier MD Work Phone: [facility] [employer] 02-27-2024 12:26-0400 Body mass index (BMI) [Ratio] 39.96 kg/m2 Mikayla Frazier MD Work Phone: [facility] [employer] 02-27-2024 12:26-0400 Body weight 102.33 kg Mikayla Frazier MD Work Phone: [facility] [employer] 02-27-2024 12:26-0400 Diastolic blood pressure 91 mm[Hg] Mikayla Frazier MD Work Phone: [facility] [employer] 02-27-2024 12:26-0400 Heart rate 108 /min Mikayla Frazier MD Work Phone: [facility] [employer] 02-27-2024 12:26-0400 Systolic blood pressure 157 mm[Hg] Mikayla Frazier MD Work Phone: [facility] 01-09-2024 12:35-0400 Body height 160 cm Mikayla Frazier MD Work Phone: [facility] 01-09-2024 12:35-0400 Body mass index (BMI) [Ratio] 40.49 kg/m2 Mikayla Frazier MD Work Phone: [facility] 01-09-2024 12:35-0400 Body weight 103.69 kg Mikayla Frazier MD Work Phone: [facility] [employer] 01-09-2024 12:35-0400 Diastolic blood pressure 81 mm[Hg] Mikayla Frazier MD Work Phone: [facility] [facility] 01-09-2024 12:35-0400 Heart rate 102 /min Mikayla Frazier MD Work Phone: [facility] [employer] 01-09-2024 12:35-0400 Systolic blood pressure 149 mm[Hg] Mikayla Frazier MD Work Phone: [facility] 12-12-2023 08:09-0400 Body height 161.3 cm Mikayla Frazier MD Work Phone: [facility] [employer] 12-12-2023 08:09-0400 Body mass index (BMI) [Ratio] 40.8 kg/m2 Mikayla Frazier MD Work Phone: [facility] [employer] 12-12-2023 08:09-0400 Body weight 106.14 kg Mikayla Frazier MD Work Phone: [facility] [employer] 12-12-2023 08:09-0400 Diastolic blood pressure 95 mm[Hg] Mikayla Frazier MD Work Phone: [facility] [employer] 12-12-2023 08:09-0400 Heart rate 102 /min Mikayla Frazier MD Work Phone: [facility] [employer] 12-12-2023 08:09-0400 Systolic blood pressure 177 mm[Hg] Mikayla Frazier MD Work Phone: [facility] [employer] 11-14-2023 09:52-0500 Body height 161.3 cm Mikayla Frazier MD Work Phone: [facility] [employer] 11-14-2023 09:52-0500 Body mass index (BMI) [Ratio] 41.6 kg/m2 Mikayla Frazier MD Work Phone: [facility] [employer] 11-14-2023 09:52-0500 Body weight 108.23 kg Mikayla Frazier MD Work Phone: [facility] [employer] 11-14-2023 09:52-0500 Diastolic blood pressure 83 mm[Hg] Mikayla Frazier MD Work Phone: [facility] [employer] 11-14-2023 09:52-0500 Heart rate 89 /min Mikayla Frazier MD Work Phone: [facility] [employer] 11-14-2023 09:52-0500 Systolic blood pressure 169 mm[Hg] Mikayla Frazier MD Work Phone: [facility] [employer] 10-12-2023 05:55-0500 Diastolic Blood Pressure Non-Invasive 48 mm[Hg] WERO JARETHNicol BAUER [facility] 10-12-2023 05:55-0500 Heart rate 64 /min WERO TEMPLETONT [facility] 10-12-2023 05:55-0500 Respiratory rate 16 /min WERO JARETHT DO [facility] 10-12-2023 05:55-0500 Systolic Blood Pressure Non-Invasive 111 mm[Hg] WERO JARETHT [facility] 10-12-2023 04:44-0500 Blood Pressure Location WERO GORMAN DO [facility] 10-12-2023 04:44-0500 Blood Pressure Method WERO GORMAN DO [facility] 10-12-2023 04:44-0500 Body temperature 96.62 [degF] WERO GORMAN DO [facility] 10-12-2023 04:44-0500 Diastolic Blood Pressure Non-Invasive 85 mm[Hg] WERO GORMAN DO [facility] 10-12-2023 04:44-0500 Heart rate 72 /min WERO GORMAN DO [facility] 10-12-2023 04:44-0500 Systolic Blood Pressure Non-Invasive 184 mm[Hg] WERO GORMAN DO [facility] 10-03-2023 11:30-0500 Body height 161.3 cm Mikayla Frazier MD Work Phone: [employer] 10-03-2023 11:30-0500 Body mass index (BMI) [Ratio] 42.3 kg/m2 Mikayla Frazier MD Work Phone: [facility] 10-03-2023 11:30-0500 Body weight 110.04 kg Mikayla Frazier MD Work Phone: [facility] 10-03-2023 11:30-0500 Diastolic blood pressure 76 mm[Hg] Mikayla Frazier MD Work Phone: [facility] 10-03-2023 11:30-0500 Heart rate 84 /min Mikayla Frazier MD Work Phone: [facility] 10-03-2023 11:30-0500 Systolic blood pressure 162 mm[Hg] Mikayla Frazier MD Work Phone: [facility] 08-10-2023 11:31-0500 Body height 161.3 cm Mikayla Frazier MD Work Phone: [facility] 08-10-2023 11:31-0500 Body mass index (BMI) [Ratio] 42.41 kg/m2 Mikayla Frazier MD Work Phone: [facility] 08-10-2023 11:31-0500 Body weight 110.31 kg Mikayla Frazier MD Work Phone: [facility] 08-10-2023 11:31-0500 Diastolic blood pressure 74 mm[Hg] Mikayla Frazier MD Work Phone: [facility] 08-10-2023 11:31-0500 Heart rate 69 /min Mikayla Frazier MD Work Phone: [facility] 08-10-2023 11:31-0500 Systolic blood pressure 136 mm[Hg] Mikayla Frazier MD Work Phone: [facility] 07-18-2023 06:02-0400 Body height 162.[address] Elissa Dial Work Phone: [facility] 07-18-2023 06:02-0400 Body mass index (BMI) [Ratio] 41.7 kg/m2 Dr. Elissa Dial Work Phone: [facility] 07-18-2023 06:02-0400 Body temperature 98.2 [degF] Dr. Elissa Dial Work Phone: [facility] 07-18-2023 06:02-0400 Body weight 110.[address] Elissa Dial Work Phone: [facility] 07-18-2023 06:02-0400 Diastolic blood pressure 81 mm[Hg] Dr. Elissa Dial Work Phone: [facility] 07-18-2023 06:02-0400 Heart rate 88 /min Dr. Elissa Dial Work Phone: [facility] 07-18-2023 06:02-0400 Respiratory rate 17 /min Dr. Elissa Dial Work Phone: [facility] 07-18-2023 06:02-0400 SaO2% (BldA) [Mass fraction] 96 % Dr. Elissa Dial Work Phone: [facility] 07-18-2023 06:02-0400 Systolic blood pressure 160 mm[Hg] Dr. Elissa Dial Work Phone: [facility] 06-06-2023 13:32-0400 Body height 161.3 cm Mikayla Frazier MD Work Phone: [facility] 06-06-2023 13:32-0400 Body mass index (BMI) [Ratio] 41.67 kg/m2 Mikayla Frazier MD Work Phone: [facility] 06-06-2023 13:32-0400 Body weight 108.41 kg Mikayla Frazier MD Work Phone: [facility] 06-06-2023 13:32-0400 Diastolic blood pressure 86 mm[Hg] Mikayla Frazier MD Work Phone: [facility] 06-06-2023 13:32-0400 Heart rate 78 /min Mikayla Frazier MD Work Phone: [facility] 06-06-2023 13:32-0400 Systolic blood pressure 152 mm[Hg] Mikayla Frazier MD Work Phone: [facility] 06-03-2023 20:53-0400 Diastolic Blood Pressure Non-Invasive 62 1 KUSUM SALDIVAR MD [facility] 06-03-2023 20:53-0400 Heart rate 65 /min KUSUM SALDIVAR MD [facility] 06-03-2023 20:53-0400 Respiratory rate 18 /min KUSUM SALDIVAR MD [facility] 06-03-2023 20:53-0400 Systolic Blood Pressure Non-Invasive 138 1 KUSUM SALDIVAR MD [facility] 06-03-2023 19:32-0400 Body temperature 97.7 [degF] UKSUM SALDIVAR MD [facility] 06-03-2023 19:32-0400 Body weight 109.1 kg KUSUM SALDIVAR MD [facility] 06-03-2023 19:32-0400 Diastolic Blood Pressure Non-Invasive 78 1 KUSUM SALDIVAR MD [facility] 06-03-2023 19:32-0400 Heart rate 84 /min KUSUM SALDIVAR MD [facility] 06-03-2023 19:32-0400 Respiratory rate 18 /min KUSUM SALDIVAR MD [facility] 06-03-2023 19:32-0400 Systolic Blood Pressure Non-Invasive 157 1 KUSUM SALDIVAR MD [facility] 06-01-2023 13:54-0400 Body temperature 97.88 [degF] DEC[employer]BER [employer] PRESERVATION SPECIALIST-RESOURCE CONSERVATION MANAGER [facility] 06-01-2023 13:54-0400 Diastolic Blood Pressure Non-Invasive 74 1 DECEMBER JAGRUTI [employer] PRESERVATION SPECIALIST-RESOURCE CONSERVATION MANAGER [facility] 06-01-2023 13:54-0400 Heart rate 71 /min DEC[employer]BER [employer] PRESERVATION SPECIALIST-RESOURCE CONSERVATION MANAGER [facility] 06-01-2023 13:54-0400 Heart rate 70 /min DECEMBER [employer] PRESERVATION SPECIALIST-RESOURCE CONSERVATION MANAGER [facility] 06-01-2023 13:54-0400 Reason For Taking VItal Signs DEC[employer]BER [employer] PRESERVATION SPECIALIST-RESOURCE CONSERVATION MANAGER [facility] 06-01-2023 13:54-0400 Respiratory rate 16 /min DECEMBER [employer] PRESERVATION SPECIALIST-RESOURCE CONSERVATION MANAGER [facility] 06-01-2023 13:54-0400 Systolic Blood Pressure Non-Invasive 151 1 DECEMBER [employer] PRESERVATION SPECIALIST-RESOURCE CONSERVATION MANAGER [facility] 06-01-2023 11:16-0400 Body temperature 97.88 [degF] DECEMBER [employer] PRESERVATION SPECIALIST-RESOURCE CONSERVATION MANAGER [facility] 06-01-2023 11:16-0400 Diastolic Blood Pressure Non-Invasive 76 1 DECEMBER [employer] PRESERVATION SPECIALIST-RESOURCE CONSERVATION MANAGER [facility] 06-01-2023 11:16-0400 Heart rate 65 /min DEC[employer]BER [employer] PRESERVATION SPECIALIST-RESOURCE CONSERVATION MANAGER [facility] 06-01-2023 11:16-0400 Heart rate 63 /min DECEMBER [employer] PRESERVATION SPECIALIST-RESOURCE CONSERVATION MANAGER [facility] 06-01-2023 11:16-0400 Reason For Taking VItal Signs DECEMBER [employer] PRESERVATION SPECIALIST-RESOURCE CONSERVATION MANAGER [facility] 06-01-2023 11:16-0400 Respiratory rate 16 /min DECEMBER [employer] PRESERVATION SPECIALIST-RESOURCE CONSERVATION MANAGER [facility] 06-01-2023 11:16-0400 Systolic Blood Pressure Non-Invasive 142 1 DECEMBER [employer] PRESERVATION SPECIALIST-RESOURCE CONSERVATION MANAGER [facility] 06-01-2023 10:52-0400 Heart rate 84 /min DEC[employer]BER [employer] PRESERVATION SPECIALIST-RESOURCE CONSERVATION MANAGER [facility] 06-01-2023 10:52-0400 Respiratory rate 20 /min DEC[employer]BER [employer] PRESERVATION SPECIALIST-RESOURCE CONSERVATION MANAGER [facility] 06-01-2023 06:46-0400 Body temperature 97.88 [degF] DEC[employer]BER [employer] PRESERVATION SPECIALIST-RESOURCE CONSERVATION MANAGER [facility] 06-01-2023 06:46-0400 Diastolic Blood Pressure Non-Invasive 58 1 DEC[employer]BER [employer] PRESERVATION SPECIALIST-RESOURCE CONSERVATION MANAGER [facility] 06-01-2023 06:46-0400 Systolic Blood Pressure Non-Invasive 107 1 DECEMBER [employer] PRESERVATION SPECIALIST-RESOURCE CONSERVATION MANAGER [facility] 06-01-2023 03:44-0400 Reason For Taking VItal Signs DEC[employer]BER [employer] PRESERVATION SPECIALIST-RESOURCE CONSERVATION MANAGER [facility] 05-31-2023 23:50-0400 Heart rate 82 /min DEC[employer]BER [employer] PRESERVATION SPECIALIST-RESOURCE CONSERVATION MANAGER [address] [place] [address] 05-31-2023 11:15-0400 Blood Pressure Method DECEMBER [employer] PRESERVATION SPECIALIST-RESOURCE CONSERVATION MANAGER [facility] 05-31-2023 10:12-0400 Blood Pressure Method DEC[employer]BER [employer] PRESERVATION SPECIALIST-RESOURCE CONSERVATION MANAGER [facility] 05-31-2023 06:24-0400 Body height 160 cm DEC[employer]BER [employer] PRESERVATION SPECIALIST-RESOURCE CONSERVATION MANAGER [facility] 05-31-2023 06:24-0400 Body weight 109.8 kg DECEMBER [employer] PRESERVATION SPECIALIST-RESOURCE CONSERVATION MANAGER [facility] 05-31-2023 06:24-0400 Body weight 42.89 kg/m2 DECEMBER [employer] PRESERVATION SPECIALIST-RESOURCE CONSERVATION MANAGER [facility] 04-30-2023 13:01-0400 Body mass index (BMI) [Ratio] 42.2 kg/m2 Dr. Elissa Dial Work Phone: [facility] 04-30-2023 13:01-0400 Body weight 111.[address] Elissa Dial Work Phone: [facility] 04-30-2023 13:00-0400 Body height 162.[address] Elissa Dial Work Phone: [facility] 04-30-2023 13:00-0400 Body temperature 97.8 [degF] Dr. lEissa Dial Work Phone: [facility] 04-30-2023 13:00-0400 Diastolic blood pressure 79 mm[Hg] Dr. Elissa Dial Work Phone: [facility] 04-30-2023 13:00-0400 Heart rate 79 /min Dr. Elissa Dial Work Phone: [facility] 04-30-2023 13:00-0400 Respiratory rate 18 /min Dr. Elissa Dial Work Phone: [facility] 04-30-2023 13:00-0400 SaO2% (BldA) [Mass fraction] 98 % Dr. Elissa Dial Work Phone: [facility] 04-30-2023 13:00-0400 Systolic blood pressure 183 mm[Hg] Dr. Elissa Dial Work Phone: [facility] 03-23-2023 10:22-0400 Body height 161.3 cm Mikayla Frazier MD Work Phone: [facility] 03-23-2023 10:22-0400 Body mass index (BMI) [Ratio] 42.02 kg/m2 Mikayla Frazier MD Work Phone: [facility] 03-23-2023 10:22-0400 Body weight 109.32 kg Mikayla Frazier MD Work Phone: [facility] 03-23-2023 10:22-0400 Diastolic blood pressure 78 mm[Hg] Mikayla Frazier MD Work Phone: [facility] 03-23-2023 10:22-0400 Heart rate 79 /min Mikayla Frazier MD Work Phone: [facility] 03-23-2023 10:22-0400 Respiratory rate 18 /min Mikayla Frazier MD Work Phone: [facility] 03-23-2023 10:22-0400 Systolic blood pressure 156 mm[Hg] Mikayla Frazier MD Work Phone: [facility] 02-15-2023 09:54-0400 Body height 161.3 cm Tung Curry MD Work Phone: [facility] 02-15-2023 09:54-0400 Body mass index (BMI) [Ratio] 42.06 kg/m2 Tung Curry MD Work Phone: [facility] 02-15-2023 09:54-0400 Body temperature 96.01 [degF] Tung Curry MD Work Phone: [facility] 02-15-2023 09:54-0400 Body weight 109.41 kg Tung Curry MD Work Phone: [facility] 02-15-2023 09:54-0400 Diastolic blood pressure 73 mm[Hg] Tung Curry MD Work Phone: [facility] 02-15-2023 09:54-0400 Heart rate 85 /min Tung Curry MD Work Phone: [facility] 02-15-2023 09:54-0400 Respiratory rate 18 /min Tung Curry MD Work Phone: [facility] 02-15-2023 09:54-0400 Systolic blood pressure 145 mm[Hg] Tung Curry MD Work Phone: [facility] 01-08-2023 07:06-0400 Body height 162.[address] Elissa Dial Work Phone: [facility] 01-08-2023 07:06-0400 Body mass index (BMI) [Ratio] 40.6 kg/m2 Dr. Elissa Dial Work Phone: [facility] 01-08-2023 07:06-0400 Body temperature 97.6 [degF] Dr. Elissa Dial Work Phone: [facility] 01-08-2023 07:06-0400 Body weight 107.[address] Elissa Dial Work Phone: [facility] 01-08-2023 07:06-0400 Diastolic blood pressure 80 mm[Hg] Dr. Elissa Dial Work Phone: [facility] 01-08-2023 07:06-0400 Heart rate 70 /min Dr. Elissa Dial Work Phone: [facility] 01-08-2023 07:06-0400 Respiratory rate 18 /min Dr. Elissa Dial Work Phone: [facility] 01-08-2023 07:06-0400 SaO2% (BldA) [Mass fraction] 96 % Dr. Elissa Dial Work Phone: [facility] 01-08-2023 07:06-0400 Systolic blood pressure 160 mm[Hg] Dr. Elissa Dial Work Phone: [facility] 10-02-2022 03:46-0500 Body temperature 97.52 [degF] CHENG ALLISON MD [facility] 10-02-2022 03:46-0500 Diastolic Blood Pressure Non-Invasive 96 1 CHENG ALLISON MD [facility] 10-02-2022 03:46-0500 Heart rate 71 /min CHENG ALLISON MD [facility] 10-02-2022 03:46-0500 Respiratory rate 18 /min CHENG ALLISON MD [facility] 10-02-2022 03:46-0500 Systolic Blood Pressure Non-Invasive 175 1 CHENG ALLISON MD [facility] 09-30-2022 13:24-0500 Body temperature 98.1 [degF] Dr. Elissa Dial Work Phone: [facility] 09-30-2022 13:24-0500 Diastolic blood pressure 84 mm[Hg] Dr. Elissa Dial Work Phone: [facility] 09-30-2022 13:24-0500 Heart rate 81 /min Dr. Elissa Dial Work Phone: [facility] 09-30-2022 13:24-0500 Respiratory rate 16 /min Dr. Elissa Dial Work Phone: [facility] 09-30-2022 13:24-0500 SaO2% (BldA) [Mass fraction] 98 % Dr. Elissa Dial Work Phone: [facility] 09-30-2022 13:24-0500 Systolic blood pressure 182 mm[Hg] Dr. Elissa Dial Work Phone: [facility] 09-29-2022 18:58-0500 Body height 162.[address] Elissa Dial Work Phone: [facility] 09-29-2022 18:58-0500 Body mass index (BMI) [Ratio] 40.3 kg/m2 Dr. Elissa Dial Work Phone: [facility] 09-29-2022 18:58-0500 Body temperature 97.9 [degF] Dr. Elissa Dial Work Phone: [facility] 09-29-2022 18:58-0500 Body weight 106.[address] Elissa Dial Work Phone: [facility] 09-29-2022 18:58-0500 Diastolic blood pressure 78 mm[Hg] Dr. Elissa Dial Work Phone: [facility] 09-29-2022 18:58-0500 Heart rate 78 /min Dr. Elissa Dial Work Phone: [facility] 09-29-2022 18:58-0500 Respiratory rate 16 /min Dr. Elissa Dial Work Phone: [facility] 09-29-2022 18:58-0500 SaO2% (BldA) [Mass fraction] 99 % Dr. Elissa Dial Work Phone: [facility] 09-29-2022 18:58-0500 Systolic blood pressure 148 mm[Hg] Dr. Elissa Dial Work Phone: [facility] 06-01-2022 08:14-0400 Body height 162.[address] Elissa Dial Work Phone: [facility] Work Phone: 06-01-2022 08:14-0400 Body mass index (BMI) [Ratio] 40.8 kg/m2 Dr. Elissa Dial Work Phone: [facility] Work Phone: 06-01-2022 08:14-0400 Body temperature 98.2 [degF] Dr. Elissa Dial Work Phone: [facility] Work Phone: 06-01-2022 08:14-0400 Body weight 108.[address] Elissa Dial Work Phone: [facility] Work Phone: 06-01-2022 08:14-0400 Diastolic blood pressure 70 mm[Hg] Dr. Elissa Dial Work Phone: [facility] Work Phone: 06-01-2022 08:14-0400 Heart rate 63 /min Dr. Elissa Dial Work Phone: [facility] Work Phone: 06-01-2022 08:14-0400 Respiratory rate 16 /min Dr. Elissa Dial Work Phone: [facility] Work Phone: 06-01-2022 08:14-0400 SaO2% (BldA) [Mass fraction] 97 % Dr. Elissa Dial Work Phone: [facility] Work Phone: 06-01-2022 08:14-0400 Systolic blood pressure 135 mm[Hg] Dr. Elissa Dial Work Phone: [facility] Work Phone: 04-20-2022 19:08-0400 Body temperature 97.7 [degF] ARNOLDO WASHBURN PROPERTY PRESERVATION SPECIALIST-RESOURCE CONSERVATION MANAGER [facility] 04-20-2022 19:08-0400 Diastolic blood pressure 82 mm[Hg] ARNOLDODANIELLA WASHBURN PROPERTY PRESERVATION SPECIALIST-RESOURCE CONSERVATION MANAGER [facility] 04-20-2022 19:08-0400 Reason For Taking VItal Signs ARNOLDO WASHBURN PROPERTY PRESERVATION SPECIALIST-RESOURCE CONSERVATION MANAGER [facility] 04-20-2022 19:08-0400 Respiratory rate 18 /min ARNOLDO WASHBURN PROPERTY PRESERVATION SPECIALIST-RESOURCE CONSERVATION MANAGER [facility] 04-20-2022 19:08-0400 Systolic blood pressure 142 mm[Hg] ARNOLDO WASHBURN PROPERTY PRESERVATION SPECIALIST-RESOURCE CONSERVATION MANAGER [facility] 04-20-2022 16:13-0400 Body temperature 97.88 [degF] ARNOLDODANIELLA WASHBURN PROPERTY PRESERVATION SPECIALIST-RESOURCE CONSERVATION MANAGER [facility] 04-20-2022 16:13-0400 Diastolic blood pressure 78 mm[Hg] ARNOLDO WASHBURN PROPERTY PRESERVATION SPECIALIST-RESOURCE CONSERVATION MANAGER [facility] 04-20-2022 16:13-0400 Heart rate 56 /min ARNOLDO WASHBURN PROPERTY PRESERVATION SPECIALIST-RESOURCE CONSERVATION MANAGER [facility] 04-20-2022 16:13-0400 Reason For Taking VItal Signs ARNOLDO WASHBURN PROPERTY PRESERVATION SPECIALIST-RESOURCE CONSERVATION MANAGER [facility] 04-20-2022 16:13-0400 Respiratory rate 18 /min ARNOLDO TAPIAJoe PROPERTY PRESERVATION SPECIALIST-RESOURCE CONSERVATION MANAGER [facility] 04-20-2022 16:13-0400 Systolic blood pressure 136 mm[Hg] ARNOLDO WASHBURN PROPERTY PRESERVATION SPECIALIST-RESOURCE CONSERVATION MANAGER [facility] 04-20-2022 10:52-0400 Body temperature 97.88 [degF] ARNOLDO TAPIAJoe PROPERTY PRESERVATION SPECIALIST-RESOURCE CONSERVATION MANAGER [facility] 04-20-2022 10:52-0400 Diastolic blood pressure 77 mm[Hg] ARNOLDO TAPIAJoe PROPERTY PRESERVATION SPECIALIST-RESOURCE CONSERVATION MANAGER [facility] 04-20-2022 10:52-0400 Heart rate 56 /min ARNOLDO TAPIAJoe PROPERTY PRESERVATION SPECIALIST-RESOURCE CONSERVATION MANAGER [facility] 04-20-2022 10:52-0400 Reason For Taking VItal Signs ARNOLDO TAPIAJoe PROPERTY PRESERVATION SPECIALIST-RESOURCE CONSERVATION MANAGER [facility] 04-20-2022 10:52-0400 Respiratory rate 18 /min ARNOLDO TAPIAJoe PROPERTY PRESERVATION SPECIALIST-RESOURCE CONSERVATION MANAGER [facility] 04-20-2022 10:52-0400 Systolic blood pressure 126 mm[Hg] ARNOLDO TAPIAJoe PROPERTY PRESERVATION SPECIALIST-RESOURCE CONSERVATION MANAGER [facility] 04-20-2022 07:11-0400 Heart rate 54 /min ARNOLDO TAPIAJoe PROPERTY PRESERVATION SPECIALIST-RESOURCE CONSERVATION MANAGER [facility] 04-20-2022 04:30-0400 Mean blood pressure 83 mm[Hg] ARNOLDO TAPIAN PROPERTY PRESERVATION SPECIALIST-RESOURCE CONSERVATION MANAGER [facility] 04-20-2022 00:00-0400 Mean blood pressure 95 mm[Hg] ARNOLDODANIELLA TAPIAN PROPERTY PRESERVATION SPECIALIST-RESOURCE CONSERVATION MANAGER [facility] 04-19-2022 03:49-0400 Mean blood pressure 78 mm[Hg] ARNOLDODANIELLA TAPIAN PROPERTY PRESERVATION SPECIALIST-RESOURCE CONSERVATION MANAGER [facility] 04-18-2022 17:50-0400 Body height 162.5 cm ARNOLDODANIELLA TAPIAN PROPERTY PRESERVATION SPECIALIST-RESOURCE CONSERVATION MANAGER [facility] 04-18-2022 17:50-0400 Body weight 106 kg ARNOLDODANIELLA TAPIAN PROPERTY PRESERVATION SPECIALIST-RESOURCE CONSERVATION MANAGER [facility] 04-18-2022 17:33-0400 Body height 162.5 cm ARNOLDODANIELLA TAPIAN PROPERTY PRESERVATION SPECIALIST-RESOURCE CONSERVATION MANAGER [facility] 04-18-2022 17:33-0400 Body weight 105.4 kg ARNOLDODANIELLA TAPIAN PROPERTY PRESERVATION SPECIALIST-RESOURCE CONSERVATION MANAGER [facility] 04-18-2022 17:33-0400 Body weight 39.91 kg/m2 ARNOLDODANIELLA TAPIAN PROPERTY PRESERVATION SPECIALIST-RESOURCE CONSERVATION MANAGER [facility] 04-18-2022 16:25-0400 Heart rate 81 /min ARNOLDODANIELLA TAPIAN PROPERTY PRESERVATION SPECIALIST-RESOURCE CONSERVATION MANAGER [facility] 04-18-2022 13:33-0400 Body weight 105.4 kg ARNOLDODANIELLA TAPIAN PROPERTY PRESERVATION SPECIALIST-RESOURCE CONSERVATION MANAGER [facility] 04-18-2022 13:33-0400 Heart rate 88 /min ARNOLDODANIELLA TAPIAN [employer]ERTY PRESERVATION SPECIALIST-RESOURCE CONSERVATION MANAGER [facility] 04-09-2022 06:44-0400 Diastolic blood pressure 86 mm[Hg] SAMANTHA VOGEL DO [facility] 04-09-2022 06:44-0400 Heart rate 66 /min SAMANTHA VOGEL DO [facility] 04-09-2022 06:44-0400 Mean blood pressure 107 mm[Hg] SAMANTHA VOGEL DO [facility] 04-09-2022 06:44-0400 Respiratory rate 18 /min SAMANTHA VOGEL DO [facility] 04-09-2022 06:44-0400 Systolic blood pressure 149 mm[Hg] SAMANTHA VOGEL DO [facility] 04-09-2022 05:08-0400 Diastolic blood pressure 74 mm[Hg] SAMANTHA VOGEL DO [facility] 04-09-2022 05:08-0400 Heart rate 60 /min SAMANTHA VOGEL DO [facility] 04-09-2022 05:08-0400 Respiratory rate 16 /min SAMANTHA VOGEL DO [facility] 04-09-2022 05:08-0400 Systolic blood pressure 130 mm[Hg] SAMANTHA VOGEL DO [facility] 04-09-2022 03:17-0400 Body temperature 98.24 [degF] SAMANTHA VOGEL DO [facility] 04-09-2022 03:17-0400 Diastolic blood pressure 79 mm[Hg] SAMANTHA VOGEL DO [facility] 04-09-2022 03:17-0400 Heart rate 76 /min SAMANTHA VOGEL DO [facility] 04-09-2022 03:17-0400 Mean blood pressure 101 mm[Hg] SAMANTHA VOGEL DO [facility] 04-09-2022 03:17-0400 Respiratory rate 16 /min SAMANTHA VOGEL DO [facility] 04-09-2022 03:17-0400 Systolic blood pressure 145 mm[Hg] SAMANTHA VOGEL DO [facility] 02-16-2022 16:06-0400 Heart rate 57 /min Tung Curry MD Work Phone: [facility] 02-16-2022 16:06-0400 SaO2% (BldA) [Mass fraction] 94 % Tung Curry MD Work Phone: [facility] 02-16-2022 16:06-0400 Body temperature 96.91 [degF] Tung Curry MD Work Phone: [facility] 02-16-2022 16:06-0400 Diastolic blood pressure 56 mm[Hg] Tung Curry MD Work Phone: [facility] 02-16-2022 16:06-0400 Respiratory rate 18 /min Tung Curry MD Work Phone: [facility] 02-16-2022 16:06-0400 Systolic blood pressure 123 mm[Hg] Tung Curry MD Work Phone: [facility] 02-15-2022 06:13-0400 Body height 162.6 cm Tung Curry MD Work Phone: [facility] 02-15-2022 06:13-0400 Body mass index (BMI) [Ratio] 45.9 kg/m2 Tung Curry MD Work Phone: [facility] 02-15-2022 06:13-0400 Body weight 121.29 kg Tung Curry MD Work Phone: [facility] 01-30-2022 11:27-0400 Body height 162.6 cm Tung Curry MD Work Phone: [facility] 01-30-2022 11:27-0400 Body mass index (BMI) [Ratio] 45.9 kg/m2 Tung Curry MD Work Phone: [facility] 01-30-2022 11:27-0400 Body temperature 98.29 [degF] Tung Curry MD Work Phone: [facility] 01-30-2022 11:27-0400 Body weight 121.29 kg Tung Curry MD Work Phone: [facility] 01-30-2022 11:27-0400 Diastolic blood pressure 64 mm[Hg] Tung Curry MD Work Phone: [facility] 01-30-2022 11:27-0400 Heart rate 80 /min Tung Curry MD Work Phone: [facility] 01-30-2022 11:27-0400 Respiratory rate 20 /min Tung Curry MD Work Phone: [facility] 01-30-2022 11:27-0400 SaO2% (BldA) [Mass fraction] 96 % Tung Curry MD Work Phone: [facility] 01-30-2022 11:27-0400 Systolic blood pressure 144 mm[Hg] Tung Curry MD Work Phone: [facility] 10-23-2021 15:41-0500 Diastolic blood pressure 74 mm[Hg] [facility] Work Phone: 10-23-2021 15:41-0500 Heart rate 87 /min [facility] Work Phone: 10-23-2021 15:41-0500 Respiratory rate 16 /min [facility] Work Phone: 10-23-2021 15:41-0500 SaO2% (BldA) [Mass fraction] 98 % [facility] Work Phone: 10-23-2021 15:41-0500 Systolic blood pressure 118 mm[Hg] [facility] Work Phone: 10-23-2021 09:22-0500 Body temperature 98.1 [degF] [facility] Work Phone: 10-23-2021 09:16-0500 Body height 162.56 cm [facility] Work Phone: 10-23-2021 09:16-0500 Body mass index (BMI) [Ratio] 46.3 kg/m2 [facility] Work Phone: 10-23-2021 09:16-0500 Body weight 122.46 kg [facility] Work Phone: 05-31-2021 08:57-0400 Diastolic blood pressure 77 mm[Hg] Tung Curry MD Work Phone: [facility] Work Phone: 05-31-2021 08:57-0400 Heart rate 77 /min Tung Curry MD Work Phone: [facility] Work Phone: 05-31-2021 08:57-0400 Respiratory rate 18 /min Tung Curry MD Work Phone: [facility] Work Phone: 05-31-2021 08:57-0400 SaO2% (BldA) [Mass fraction] 97 % Tung Curry MD Work Phone: [facility] Work Phone: 05-31-2021 08:57-0400 Systolic blood pressure 117 mm[Hg] Tung Curry MD Work Phone: [facility] Work Phone: 05-31-2021 07:52-0400 Body height 162.6 cm Tung Curry MD Work Phone: [facility] Work Phone: 05-31-2021 07:52-0400 Body mass index (BMI) [Ratio] 46.52 kg/m2 Tung Curry MD Work Phone: [facility] Work Phone: 05-31-2021 07:52-0400 Body temperature 98.71 [degF] Tung Curry MD Work Phone: [facility] Work Phone: 05-31-2021 07:52-0400 Body weight 122.92 kg Tung Curry MD Work Phone: [facility] Work Phone: 04-27-2017 11:44-0400 Heart rate 74 /min [facility] Work Phone: 04-27-2017 10:46-0400 BMI (Body Mass Index) 48.91 kg/m2 Kentallorri Stanley [facility] Work Phone: 04-27-2017 10:46-0400 BP Diastolic 80 mm[Hg] Kentalle Lizeth [facility] Work Phone: 04-27-2017 10:46-0400 BP Systolic 142 mm[Hg] Kentalle Lizeth [facility] Work Phone: 04-27-2017 10:46-0400 Height 162.56 cm Kentallorri Stanley [facility] Work Phone: 04-27-2017 10:46-0400 Pulse (Heart Rate) 72 /min Enrique Stanley [facility] Work Phone: 04-27-2017 10:46-0400 Respiratory Rate 16 /min [facility] Work Phone: 04-27-2017 10:46-0400 Weight 129.28 kg [facility]ri [facility] Work Phone: 04-27-2017 10:46-0400 Weight 129.27 kg Chantallorri Stanley [facility] Work Phone: 04-04-2016 13:19-0400 BMI (Body Mass Index) 46.61 kg/m2 Rosy Suarez RN [facility] Work Phone: 04-04-2016 13:19-0400 Body Temperature 98.7 [degF] Rosy Suarez RN [facility] Work Phone: 04-04-2016 13:19-0400 BP Diastolic 78 mm[Hg] Rosy Suarez RN [facility] Work Phone: 04-04-2016 13:19-0400 BP Systolic 126 mm[Hg] Rosy Suarez RN [facility] Work Phone: 04-04-2016 13:19-0400 BSA (Body Surface Area) 2.23 m2 Rosy Suarez RN [facility] Work Phone: 04-04-2016 13:19-0400 Pulse (Heart Rate) 70 /min Rosy Suarez RN [facility] Work Phone: 04-04-2016 13:19-0400 Respiratory Rate 18 /min Rosy Suarez RN [facility] Work Phone: 04-04-2016 13:19-0400 Weight 123.2 kg Rosy Suarez RN [facility] Work Phone: 10-02-2015 10:25-0500 Body surface area Derived from formula 89.50 mL/min Enrique Stanley [facility] Work Phone: 03-05-2015 13:39-0400 Height 162.56 cm Rosy Suarez RN [facility] Work Phone: Encounters Encounter Date Encounter Type Care Provider Facility Start: 07-14-2025 Visit out of hours Allen Frias MD Work Phone: [employer] [facility]. Work Phone: Start: 07-14-2025 In-person encounter Allen velazquez MD Work Phone: [facility] Work Phone: Start: 06-09-2025 Encounter for genera l adult medical examination without abnormal findings Mary Rowe NP [facility] Start: 06-02-2025 End: 06-02-2025 ambulatory Jennifer Valdezjeanie Facility:[facility] Start: 05-29-2025 End: 05-29-2025 ambulatory [facility] Facility:[facility] Start: 05-15-2025 Visit out of hours Allen Frias MD Work Phone: [employer] [facility]. Work Phone: Start: 05-13-2025 In-person encounter Allen velazquez MD Work Phone: [facility] Work Phone: Start: 04-27-2025 End: 04-28-2025 ambulatory [facility] Facility:[facility] Start: 04-13-2025 End: 04-13-2025 Emergency department patient visit DR POLO GALVEZ DO Facility:[facility] Start: 04-13-2025 End: 04-13-2025 Observation ARNOLDO WASHBURN PROPERTY PRESERVATION SPECIALIST-RESOURCE CONSERVATION MANAGER [facility] Start: 04-10-2025 End: 04-10-2025 ambulatory [facility] Facility:[facility] Start: 04-09-2025 End: 04-09-2025 ambulatory [facility] Facility:[facility] Start: 03-04-2025 End: 03-04-2025 ambulatory Arnoldo Serrano Facility:[facility] Start: 02-17-2025 End: 02-17-2025 ambulatory [facility] Facility:[facility] Start: 01-15-2025 End: 01-15-2025 ambulatory [facility] Facility:[facility] Start: 11-01-2024 End: 11-01-2024 Emergency department patient visit LENNY CESPEDES MD [facility] Start: 10-30-2024 End: 10-30-2024 ambulatory [facility] Facility:[facility] Start: 10-10-2024 End: 10-10-2024 ambulatory Mary Rowe NP Facility:[facility] Start: 08-28-2024 End: 08-28-2024 ambulatory Antonette Huffman [facility] Start: 08-04-2024 End: 08-04-2024 Emergency department patient visit Frankie Stout Facility:[facility] Start: 07-11-2024 End: 07-11-2024 ambulatory Antonette Huffman Facility:[facility] Start: 07-08-2024 End: 07-08-2024 ambulatory Elissa Dial Facility:[facility] Start: 07-04-2024 End: 07-04-2024 Office outpatient visit 15 minutes Mikayla Frazier MD Work Phone: [facility] Comment on above: S/P bariatric surger y (Primary Dx); Deficiency of multiple nutrient elements; Type 2 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 without complication, without long-term current use of insulin (CMS/HCC) ([facility]); BMI 40.0-44.9, adult ([facility]) Start: 07-04-2024 End: 07-04-2024 ambulatory [facility] Start: 06-11-2024 End: 06-11-2024 ambulatory CARLTON SALVADOR [facility] Start: 04-23-2024 End: 04-23-2024 ambulatory [facility] Start: 04-23-2024 End: 04-23-2024 Office outpatient visit 15 minutes Mikayla Frazier MD Work Phone: [facility] Comment on above: S/P bariatric surger y (Primary Dx); Deficiency of multiple nutrient elements; Type 2 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 without complication, without long-term current use of insulin (CMS/HCC) (HCC); BMI 40.0-44.9, adult ([facility]); Class 3 severe obesity with serious comorbidity and body mass index (BMI) of 40.0 to 44.9 in adult, unspecified obesity type (HCC) Start: 04-08-2024 End: 04-09-2024 Emergency department patient visit CARLOS MAYS DO [facility] Start: 02-27-2024 End: 02-27-2024 ambulatory [facility] Start: 02-27-2024 End: 02-27-2024 Office outpatient visit 15 minutes Mikayla Frazier MD Work Phone: [facility] [place] Comment on above: S/P bariatric surger y (Primary Dx); Deficiency of multiple nutrient elements; Type 2 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 without complication, without long-term current use of insulin (CMS/HCC) (HCC); BMI 39.0-39.9,adult; Class 2 severe obesity with serious comorbidity and body mass index (BMI) of 39.0 to 39.9 in adult, unspecified obesity type (HCC) Start: 02-27-2024 End: 02-27-2024 [facility] Start: 01-09-2024 End: 01-09-2024 Office outpatient visit 15 minutes Mikayla Frazier MD Work Phone: [facility] [place] Comment on above: S/P bariatric surger y (Primary Dx); Nausea; Type 2 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 without complication, without long-term current use of insulin (CMS/HCC) (HCC); BMI 40.0-44.9, adult (HCC); Class 3 severe obesity with serious comorbidity and body mass index (BMI) of 40.0 to 44.9 in adult, unspecified obesity type (HCC) Start: 01-09-2024 End: 01-09-2024 [facility] Start: 12-12-2023 End: 12-12-2023 Office outpatient visit 15 minutes Mikayla Frazier MD Work Phone: [facility] [place] Comment on above: S/P bariatric surger y (Primary Dx); Type 2 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 without complication, without long-term current use of insulin (CMS/HCC) (HCC); BMI 40.0-44.9, adult (HCC); Class 3 severe obesity with serious comorbidity and body mass index (BMI) of 40.0 to 44.9 in adult, unspecified obesity type (HCC); Vitamin D deficiency Start: 12-12-2023 End: 12-12-2023 [facility] Start: 12-11-2023 Refill Mikayla Frazier MD Work Phone: [facility] Start: 12-03-2023 Telephone encounter Magda chang RD Work Phone: [facility] Comment on above: Abnormal Lab (Low Vi tamin D) Start: 11-27-2023 End: 11-27-2023 ambulatory [facility] Start: 11-14-2023 End: 11-14-2023 Office outpatient visit 15 minutes Mikayla Frazier MD Work Phone: [facility] Comment on above: Vitamin D deficiency (Primary Dx); S/P bariatric surgery; Iron deficiency; Type 2 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 without complication, without long-term current use of insulin (CMS/HCC) (HCC); BMI 40.0-44.9, adult (HCC); Class 3 severe obesity with serious comorbidity and body mass index (BMI) of 40.0 to 44.9 in adult, unspecified obesity type (HCC) Start: 11-14-2023 End: 11-14-2023 ambulatory [facility] Start: 10-12-2023 End: 10-12-2023 Emergency department patient visit WERO GORMAN [facility] Start: 10-03-2023 End: 10-03-2023 Office outpatient visit 15 minutes Mikayla Frazier MD Work Phone: [facility] Comment on above: S/P bariatric surger y (Primary Dx); Deficiency of multiple nutrient elements; Type 2 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 without complication, without long-term current use of insulin (CMS/HCC) (HCC); BMI 40.0-44.9, adult (HCC); Class 3 severe obesity with serious comorbidity and body mass index (BMI) of 40.0 to 44.9 in adult, unspecified obesity type (HCC) Start: 10-03-2023 End: 10-03-2023 ambulatory [facility] Start: 09-07-2023 End: 09-07-[address] Elissa Dial Work Phone: [facility] Work Phone: Start: 09-07-2023 End: 09-07-[address] Elissa Dial Work Phone: [facility] [place] Work Phone: Start: 09-03-2023 Telephone encounter Magda chang RD Work Phone: [facility] [place] Comment on above: Abnormal Lab (Low Vi tamin D and low normal Ferritin) Start: 08-21-2023 End: 08-21-2023 ambulatory [facility] Start: 08-10-2023 End: 08-10-2023 Office outpatient visit 25 minutes Mikayla Frazier MD Work Phone: [facility] [place] Comment on above: BMI 40.0-44.9, adult (HCC) (Primary Dx); Class 3 severe obesity with serious comorbidity and body mass index (BMI) of 40.0 to 44.9 in adult, unspecified obesity type ([facility]); S/P bariatric surgery; Deficiency of multiple nutrient elements; Type 2 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 without complication, without long-term current use of insulin ([facility]) ([facility]); Iron deficiency; Vitamin D deficiency; Encounter for vitamin deficiency screening Start: 08-10-2023 End: 08-10-2023 [facility] Start: 07-18-2023 End: 07-18-[address] Elissa Dial Work Phone: [facility]-Pulmonary Medicine [facility] Work Phone: Start: 07-05-2023 Refill Mikayla Frazier MD Work Phone: [facility] [place] Start: 06-06-2023 End: 06-11-2023 Telephone encounter Magda Patel RD Work Phone: [facility] [place] Comment on above: Abnormal Lab (Low Vi tamin D) Start: 06-06-2023 End: 06-06-2023 Office outpatient visit 15 minutes Mikayla Frazier MD Work Phone: [facility] [place] Comment on above: Gastroesophageal ref lux disease, unspecified whether esophagitis present (Primary Dx); BMI 40.0-44.9, adult (HCC); Class 3 severe obesity with serious comorbidity and body mass index (BMI) of 40.0 to 44.9 in adult, unspecified obesity type (HCC); S/P bariatric surgery; Deficiency of multiple nutrient elements Start: 06-03-2023 End: 06-03-2023 Emergency department patient visit KUSUM SALDIVAR MD [facility] Start: 05-31-2023 End: 06-01-2023 Evaluation and management of inpatient RADHA M JAGRUTI PROPERTY PRESERVATION SPECIALISTEpitiro [facility] Start: 05-18-2023 Refill Andria Herrera PROPERTY PRESERVATION SPECIALIST [employer] Work Phone: [facility] [place] Start: 04-30-2023 End: 04-30-2023 Emergency department patient visit Dr. Elissa Dial Work Phone: [facility]-Emergency Department Work Phone: Start: 04-12-2023 Refill Mikayla Frazier MD Work Phone: [facility] [place] Start: 03-30-2023 Telephone encounter Naomi douglas RD Work Phone: [facility] Comment on above: Abnormal Lab (Low Vi tamin D, low Hgb) Start: 03-29-2023 Transcribe Orders Carlton Mayes Work Phone: [facility] Comment on above: Anemia, unspecified (Primary Dx); Abnormal level of blood mineral; Vitamin D deficiency, unspecified Start: 03-23-2023 End: 03-23-2023 Office outpatient visit 25 minutes Mikayla Frazier MD Work Phone: [facility] Comment on above: Gastroesophageal ref lux disease, unspecified whether esophagitis present (Primary Dx); BMI 40.0-44.9, adult (HCC); Class 3 severe obesity with serious comorbidity and body mass index (BMI) of 40.0 to 44.9 in adult, unspecified obesity type (HCC); S/P bariatric surgery; Deficiency of multiple nutrient elements; Type 2 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 without complication, without long-term current use of insulin ([facility]) (HCC) Start: 03-12-2023 End: 03-12-[address] Elissa Dial Work Phone: [facility] Work Phone: Start: 03-12-2023 End: 03-12-[address] Elissa Dial Work Phone: [facility]-Radiology, [place] Start: 02-26-2023 Telephone encounter Magda hcang RD Work Phone: [facility] [place] Comment on above: Abnormal Lab (Low: h /h; Vitamin D, Magnesium) Start: 02-23-2023 Transcribe Orders Debora Hodges nd, MD Work Phone: [facility] Comment on above: Type 2 diabetes joe itus without complications ([facility]) ([facility]) (Primary Dx); Essential (primary) hypertension; Deficiency of multiple nutrient elements; Morbid (severe) obesity due to excess calories ([facility]); Body mass index (BMI) 40.0-44.9, adult ([facility]); Pain in left knee; Pain in right knee; GERD without esophagitis; MITZI (obstructive sleep apnea); High cholesterol; Vitamin B deficiency; Morbid obesity with BMI of 40.0-44.9, adult ([facility]); Arthralgia, unspecified joint; Low magnesium level; Vitamin D deficiency Start: 02-15-2023 End: 02-15-2023 Office outpatient visit 25 minutes Tung Curry MD Work Phone: [facility] Comment on above: Arthralgia of both k nees (Primary Dx); GERD without esophagitis; Primary hypertension; Type 2 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 without complication, 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 Elissa Dial Work Phone: [facility]-Pulmonary Medicine [facility] Start: 12-08-2022 End: 12-08-[address] Elissa Dial Work Phone: [facility] Work Phone: Start: 12-08-2022 End: 12-08-[address] Elissa Dial Work Phone: [facility] Start: 11-22-2022 End: 11-22-[address] Elissa Dial Work Phone: [facility] Work Phone: Start: 11-22-2022 End: 11-22-[address] Elissa Dial Work Phone: [facility] Start: 11-14-2022 End: 11-14-[address] Elissa Dial Work Phone: [facility] Work Phone: Start: 11-14-2022 End: 11-14-[address] Elissa Dial Work Phone: [facility] Start: 11-02-2022 End: 11-02-[address] Elissa Dial Work Phone: [facility] Work Phone: Start: 11-02-2022 End: 11-02-[address] Elissa Dial Work Phone: [facility] Start: 10-02-2022 End: 10-02-2022 Emergency department patient visit CHENG ALLISON MD [facility] Start: 09-30-2022 End: 09-30-[address] Elissa Dial Work Phone: [facility] Start: 09-29-2022 End: 09-29-2022 Emergency department patient visit Dr. Elissa Dial Work Phone: [facility]-Emergency Department Start: 08-21-2022 Transcribe Orders Carlton Mayes Work Phone: [facility] Laboratory Comment on above: Hypokalemia (Primary Dx); Obstructive sleep apnea (adult) (pediatric); Pure hypercholesterolemia, unspecified; Deficiency of multiple nutrient elements; Morbid (severe) obesity due to excess calories (HCC); Body mass index (BMI) 39.0-39.9, adult; Pain in unspecified joint; Hypomagnesemia Start: 08-16-2022 End: 08-16-[address] Elissa Dial Work Phone: [facility] Work Phone: Start: 08-16-2022 End: 08-16-[address] [facility] Start: 06-21-2022 End: 06-21-[address] Elissa Dial Work Phone: [facility] Work Phone: Start: 06-21-2022 End: 06-21-[address] [facility] Start: 06-20-2022 End: 06-20-[address] Elissa Dial Work Phone: [facility], [place] Start: 06-12-2022 End: 06-16-2022 Outreach Lab CARLTON SALVADOR PA-C [facility] Start: 06-01-2022 End: 06-01-[address] Elissa Dial Work Phone: [facility]-Pulmonary Medicine [facility] Start: 05-22-2022 End: 05-22-2022 Subsequent hospital visit by physician Carlton STRANGE Work Phone: General acute hospital Start: 05-18-2022 End: 05-18-2022 Subsequent hospital visit by physician Carlton STRANGE Work Phone: [facility] Laboratory Comment on above: Hypokalemia; Hypomagnesemia Primary hypertension ; Gastroesophageal reflux disease without esophagitis; Type 2 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 with other specified complication, unspecified whether mcfp insulin use (HCC); MITZI on CPAP; High cholesterol; Deficiency of multiple nutrient elements; Class 3 severe obesity due to excess calories with serious comorbidity and body mass index (BMI) of 40.0 to 44.9 in adult (HCC); Low serum vitamin B12; Vitamin D deficiency; Low magnesium level; Low serum potassium Start: 05-05-[address] Elissa Dial Work Phone: [facility] Start: 04-24-2022 End: 04-24-2022 Patient encounter procedure ANNE BHAKTA PROPERTY PRESERVATION SPECIALISTEpitiro [facility] Start: 04-18-2022 End: 04-20-2022 Evaluation and management of inpatient ARNOLDO WASHBURN PROPERTY PRESERVATION SPECIALIST-[employer] [facility] Start: 04-09-2022 End: 04-09-2022 Emergency department patient visit SAMANTHA VOGEL DO [facility] Start: 03-23-2022 End: 03-23-2022 Subsequent hospital visit by physician Tung Curry MD Work Phone: General acute hospital Start: 03-20-2022 End: 03-20-2022 Subsequent hospital visit by physician Tung Curry MD Work Phone: [facility] Comment on above: Primary hypertension ; Gastroesophageal reflux disease without esophagitis; Type 2 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 with other specified complication, unspecified whether mcfp insulin use (HCC); MITZI on CPAP; High cholesterol; Deficiency of multiple nutrient elements; Class 3 severe obesity due to excess calories with serious comorbidity and body mass index (BMI) of 40.0 to 44.9 in adult (HCC); Encounter for postoperative care; Oral thrush Start: 02-23-2022 End: 02-23-2022 Subsequent hospital visit by physician [facility]ung [facility] Start: 02-15-2022 End: 02-16-2022 Evaluation and management of inpatient Tung Curry MD Work Phone: [facility] Comment on above: Morbid obesity with BMI of 45.0-49.9, adult (HCC) (Primary Dx) Start: 01-31-2022 End: 01-31-2022 Patient encounter procedure [facility] Start: 01-30-2022 End: 01-30-2022 Preprocedural examination done Tung Curry MD Work Phone: [facility] Pre-Admit Testing Start: 01-30-2022 End: 01-30-2022 Subsequent hospital visit by physician Tung Curry MD Work Phone: [facility] Pre-Admit Testing Comment on above: Pre-operative exam; Morbid obesity due to excess calories (HCC); Type 2 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 with other specified complication, unspecified whether mcfp insulin use (HCC); MITZI on CPAP Start: 01-05-2022 End: 01-05-2022 Subsequent hospital visit by physician [facility]ung [facility] MD [facility] Start: 10-23-2021 End: 10-23-2021 Emergency department patient visit [facility]-Emergency Department Start: 08-12-2021 End: 08-12-2021 Subsequent hospital visit by physician Mikayla Frazier MD Work Phone: [facility] [place] [facility] Start: 06-15-2021 End: 06-15-2021 Subsequent hospital visit by physician Mikayla Frazier MD [facility] Phone[facility] Start: 06-07-2021 End: 06-07-2021 Subsequent hospital visit by physician Elissa Dial Work Phone: [facility] Comment on above: Class 3 severe obesi ty due to excess calories with serious comorbidity and body mass index (BMI) of 45.0 to 49.9 in adult ([facility]); Type 2 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 with other specified complication, unspecified whether mcfp insulin use ([facility]); Hypercholesteremia; Essential hypertension; MITZI on CPAP; Back pain, unspecified back location, unspecified back pain laterality, unspecified chronicity Start: 05-31-2021 End: 05-31-2021 Subsequent hospital visit by physician Tung Curry MD Work Phone: [facility] [address] [facility] [facility] Comment on above: Chronic superficial gastritis without bleeding; Anticoagulated on Coumadin; Gastric polyp Start: 05-26-2021 Patient encounter status [facility] Start: 04-13-2021 End: 04-13-2021 Subsequent hospital visit by physician Tung Curry MD Work Phone: [facility] Start: 04-06-2021 End: 04-06-2021 Subsequent hospital visit by physician Mikayla Frazier MD Work Phone: [facility] Start: 02-03-2021 End: 02-03-2021 Subsequent hospital visit by physician Tung Curry MD Work Phone: General acute hospital Procedures Date Procedure Procedure Detail Performing Clinician Start: 07-14-2025 Blood pressure withi n normal parameters - no follow-up required Allen Herndon MD Work Phone: Start: 07-14-2025 BMI outside of helena l parameters - no follow-up plan/reason not given Allen Herndon MD Work Phone: Start: 07-14-2025 Current tobacco non- user cad cap copd pv dm Allen Herndon MD Work Phone: Start: 07-14-2025 Documentation of cur rent medications Allen Herndon MD Work Phone: Start: 07-14-2025 Pain assessment documented as positive - follow-up documented Allen Herndon MD Work Phone: Start: 07-14-2025 Physical therapy management Allen Herndon MD Work Phone: Start: 05-15-2025 Falls plan of care documented Allen Herndon MD Work Phone: Start: 05-15-2025 Blood pressure withi n normal parameters - no follow-up required Allen Herndon MD Work Phone: Start: 05-15-2025 BMI outside of helena l parameters - no follow-up plan/reason not given Allen Herndon MD Work Phone: Start: 05-15-2025 Falls risk assessmen t documented Allen Herndon MD Work Phone: Start: 05-15-2025 Osteoarthritis sympt oms and functional status not assessed Allen Herndon MD Work Phone: Start: 05-15-2025 Pt falls assess docd 2/> falls/fall w/injury/yr Allen Herndon MD Work Phone: Start: 05-15-2025 Current tobacco non- user cad cap copd pv dm Allen Herndon MD Work Phone: Start: 05-15-2025 Documentation of cur rent medications Allen Herndon MD Work Phone: Start: 05-15-2025 Pain assessment documented as positive - follow-up documented Allen Herndon MD Work Phone: Start: 05-15-2025 MOTORIZED COLD THERA PY COMBO UNIT Allen Herndon MD Work Phone: Start: 05-15-2025 Physical therapy management Allen Herndon MD Work Phone: Start: 05-15-2025 WALKER W/ WHEELS Allen Herndon MD Work Phone: Start: 04-30-2023 CT of head without contrast Dr. Elissa Dial Work Phone: Start: 03-29-2023 Assay of ferritin Mallo ry Humbertoke PA Work Phone: Start: 03-12-2023 Plain x-ray of pelvi s and lower extremity Dr. Elissa Dial Work Phone: Start: 03-12-2023 X-ray of lumbosacral spine Dr. Elissa Dial Work Phone: Start: 02-23-2023 Comprehensive metabo lic panel Debora Maxwell MD Work Phone: Start: 02-23-2023 Lipid panel Debora pedraza MD Work Phone: Start: 02-23-2023 Lipid 1996 panel - S dee or Plasma Magda Patel RD Work Phone: Start: 12-08-2022 Radiologic examinati on of knee Dr. Elissa Dial Work Phone: Start: 11-22-2022 MRI of brain with contrast Dr. Elissa Dial Work Phone: Start: 08-21-2022 Comprehensive metabo lic panel Carlton Erwinke PA Work Phone: Start: 08-21-2022 Lipid panel Carlton Zu pke PA Work Phone: Start: 08-21-2022 Lipid 1996 panel - S dee or Plasma Carlton Erwinke PA Work Phone: Start: 05-18-2022 Assay of magnesium Mall ory Zupke PA Work Phone: Start: 03-20-2022 Comprehensive metabo lic panel Tung Curry MD Work Phone: Start: 02-16-2022 Gluc bld gluc mntr d ev cleared fda spec home use Tung Curry MD Work Phone: Start: 02-16-2022 Radiologic exam upr gi trc single contrast study Trevor Bravo MD Work Phone: Start: 02-16-2022 Gluc bld gluc mntr d ev cleared fda spec home use Tung Curry MD Work Phone: Start: 02-16-2022 Basic metabolic pane l calcium total Trevor Bravo MD Work Phone: Start: 02-15-2022 Gluc bld gluc mntr d ev cleared fda spec home use Tung Curry MD Work Phone: Start: 02-15-2022 Gluc bld gluc mntr d ev cleared fda spec home use Tung Curry MD Work Phone: Start: 02-15-2022 OPERATIVE REPORT Physic cindi Generic Start: 02-15-2022 Gluc bld gluc mntr d ev cleared fda spec home use Tung Curry MD Work Phone: Start: 02-15-2022 Gluc bld gluc mntr d ev cleared fda spec home use Tung Curry MD Work Phone: Start: 02-15-2022 End: 02-15-2022 Basic metabolic panel calcium total Trevor Bravo MD Work Phone: Start: 02-15-2022 Level iv surg pathol ogy gross&microscopic exam Tung Curry MD Work Phone: Start: 02-15-2022 End: 02-15-2022 Gluc bld gluc mntr dev cleared fda spec home use Tung Curry MD Work Phone: Start: 01-30-2022 Gluc bld gluc mntr d ev cleared fda spec home use Tung Curry MD Work Phone: Start: 01-30-2022 Ecg routine ecg w/le ast 12 lds w/i&r Carlton STRANGE Work Phone: Start: 10-23-2021 End: 10-23-2021 Clostridium difficile detection Start: 10-23-2021 Enteric Bacteriology Start: 10-23-2021 SARS-CoV-2 Antigen (Rapid) Start: 06-07-2021 Urine albumin quantitative Elissa Dial [place] Phone: Start: 06-07-2021 End: 06-07-2021 Comprehensive metabolic panel Elissa Dial Work Phone: Start: 06-07-2021 End: 06-07-2021 Lipid panel Elissa Dial Work Phone: Start: 05-31-2021 [facility] ENDOSCOPY REPORT 3m Scanning Start: 05-31-2021 Gluc bld gluc mntr d ev cleared fda spec home use Tung Curry MD Work Phone: Start: 04-27-2017 End: 04-27-2017 Ecg routine ecg w/least 12 lds w/i&r Bernard Shrap MD Start: 04-27-2017 End: 04-27-2017 Dietary management education, guidance, and counseling Enrique Stanley Start: 04-27-2017 End: 04-27-2017 Electrocardiogram, complete Bernard Sharp MD Start: 04-04-2016 End: 04-04-2016 Hemoglobin glycosylated a1c Elissa Dial DO [place] Phone: Start: 04-04-2016 End: 04-04-2016 HbA1c Elissa Dial DO Work Phone: Start: 04-04-2016 End: 04-04-2016 Hemoglobin glycosylated a1c Elissa Dial DO Work Phone: Start: 09-22-2015 End: 09-22-2015 *CBC with Differential Elissa Martinez Work Phone: Start: 09-22-2015 End: 09-22-2015 *CMP Complete Metabolic Panel Elissa Dial DO [place] Phone: Start: 09-22-2015 End: 09-22-2015 *Microalbumin, Creatine Ratio, rand urine Elissa Dial DO [place] Phone: Start: 09-22-2015 End: 09-22-2015 Hemoglobin A1c/Hemoglobin.total in Blood Elissa Dial DO Work Phone: Start: 09-22-2015 End: 09-22-2015 Lipid 1996 panel - Serum or Plasma Elissa Dial DO Work Phone: Start: 09-22-2015 End: 09-22-2015 *CBC with Differential Elissa Pham O Work Phone: Start: 09-22-2015 End: 09-22-2015 *CMP Complete Metabolic Panel Elissa Dial [employer] Work Phone: Start: 09-22-2015 End: 09-22-2015 *Microalbumin, Creatine Ratio, rand urine Elissa Dial [employer] Work Phone: Start: 09-22-2015 End: 09-22-2015 HbA1c Elissa Dial [employer] Work Phone: Start: 09-22-2015 End: 09-22-2015 Lipid panel [AGGREGATE] Elissa Dial DO Work Phone: Start: 07-30-2015 End: 07-30-2015 Urinalysis Enrique Stanley Start: 07-29-2015 End: 07-30-2015 *UA - Urinalysis w/o Micro Elissa Dial DO Work Phone: Start: 07-29-2015 End: 07-30-2015 *UA - Urinalysis w/o Micro Elissa Dial [employer] Work Phone: Start: 06-08-2015 End: 06-08-2015 Prothrombin time Elissa Dial [employer] Work Phone: Start: 06-08-2015 End: 06-11-2015 Influenza vaccination Vaccine against influenza Enrique Stanley Start: 06-08-2015 End: 06-08-2015 Prothrombin time Elissa Dial [employer] Work Phone: Start: 05-05-2015 End: 05-05-2015 Prothrombin time Elissa JohnsonTRIBAX Work Phone: Start: 05-05-2015 End: 05-05-2015 Warfarin physician review/intepretation - service Elissa Jessica Jayro DO Work Phone: Start: 05-05-2015 End: 05-05-2015 Prothrombin time Elissa Dial DO Work Phone: Start: 05-05-2015 End: 05-05-2015 Warfarin physician review/intepretation - service Elissa Dial DO Work Phone: Start: 09-24-2014 Repair of stress incontinence by suprapubic sling SAMANTHA VOGEL DO Start: 09-24-1980 Cholecystectomy SAMANTHA VOGEL DO Start: 09-24-1967 Appendectomy SAMANTHA FIGUEROA DO Bacteria identified in Urine by Culture Dr. Elissa Dial Work Phone: Clostridium difficil e detection Dr. Elissa Dial Work Phone: Clostridium difficil e detection Dr. Elissa Dial Work Phone: History of appendectomy Hx of appendectom y Total replacement of hip MICHEL VOGEL DO Comment on above: bilateral Urine culture Dr. Elissa shin Work Phone: Vaginal hysterectomy SAMANTHA VOGEL DO Plan of Treatment Date Care Activity Detail Author Start: 02-24-2028 Cyanocobalamin vitamin b-12 Vitamin B-12 [facility] Start: 06-04-2027 DTaP/Tdap/Td vaccine (3 - Td or Tdap) DTaP/Tdap/Td vaccine (3 - Td or Tdap) [facility] Start: 06-04-2027 DTaP/Tdap/Td Vaccines (3 - Td or Tdap) DTaP/Tdap/Td Vaccines (3 - Td or Tdap) [employer] Start: 05-15-2025 Ct lower extremity w/o contrast material [employer] Work Phone: Start: 11-26-2024 Creatinine measurement Creatinine Level [facility] Start: 11-26-2024 Diabetes: Estimated Glomerular Filtration Rate for Kidney Health Diabetes: Estimated Glomerular Filtration Rate for Kidney Health [facility] Start: 11-26-2024 Potassium measurement Potassium Level [facility] Start: 10-03-2024 End: 10-03-2024 Patient encounter procedure 10/03/2024 1:00 PM EST Office Visit [facility] [address] [facility] [place] [phone] Mikayla Frazier MD [address] [place], [place] [id number] [facility] Start: 08-21-2024 Creatinine measurement Creatinine Level [facility] Start: 08-21-2024 Potassium measurement Potassium Level [facility] Start: 07-02-2024 End: 07-02-2024 Patient encounter procedure [facility] [place] Start: 05-25-2024 COVID-19 Vaccine ( season) COVID-19 Vaccine ( season) [facility] Start: 05-25-2024 COVID-19 Vaccine ( season) COVID-19 Vaccine ( season) [facility] Start: 05-25-2024 Influenza vaccination Influenza Vaccine (#1) [facility] Start: 04-09-2024 End: 04-09-2024 Patient encounter procedure 04/09/2024 2:00 PM EDT Office Visit [facility] [place] [address] [facility] [place] [phone] Mikayla Frazier MD [address] [place], [place] [id number] [facility] [place] Start: 02-27-2024 End: 02-27-2024 Patient encounter procedure 02/27/2024 12:40 PM EDT Office Visit [facility] [place] [address] [place] [phone] Mikayla Frazier MD [address] [place], [place] [id number] [facility] Start: 02-24-2024 Creatinine measurement Creatinine Level [facility] Start: 02-24-2024 Lipid panel Lipid Panel [facility] Start: 02-24-2024 Potassium measurement Potassium Level [facility] Start: 01-09-2024 End: 01-09-2024 Patient encounter procedure 01/09/2024 12:40 PM EDT Office Visit [facility] [address] [place] [phone] Mikayla Frazier MD [address] [place] [address] [facility] Start: 12-12-2023 End: 03-13-2024 25-hydroxyvitamin D3 [Mass/volume] in Serum or Plasma Vitamin D Deficiency Screening (Vit D 25) Lab Routine Vitamin D deficiency Expected: 12/12/2023 (Approximate), Expires: 03/13/2024 [facility] Work Phone: Comment on above: Expected: 12/12/2023 (Approximate), Expi res: 03/13/2024 Start: 12-12-2023 End: 12-12-2023 Patient encounter procedure 12/12/2023 8:20 AM EDT Office Visit [facility] [address] [place] [phone] Mikayla Frazier MD [address] [place] [address] [facility] Start: 11-14-2023 End: 11-14-2024 25-hydroxyvitamin D3 [Mass/volume] in Serum or Plasma Vitamin D Deficiency Screening (Vit D 25) Lab Routine S/P bariatric surgery Vitamin D deficiency Expected: 11/14/2023, Expires: 11/14/2024 [facility] Comment on above: Expected: 11/14/2023, Expires: Start: 11-14-2023 End: 11-14-2024 CBC panel - Blood by Automated count CBC Lab Routine S/P bariatric surgery Iron deficiency Expected: 11/14/2023, Expires: 11/14/2024 [facility] [employer] Comment on above: Expected: 11/14/2023, Expires: Start: 11-14-2023 End: 11-14-2024 Cobalamin (Vitamin B12) [Mass/volume] in Serum or Plasma Vitamin B12 Lab Routine S/P bariatric surgery Expected: 11/14/2023, Expires: 11/14/2024 [employer] Comment on above: Expected: 11/14/2023, Expires: Start: 11-14-2023 End: 11-14-2024 Comprehensive metabolic 1998 panel - Serum or Plasma Comprehensive metabolic panel Lab Routine S/P bariatric surgery Expected: 11/14/2023, Expires: 11/14/2024 [employer] Comment on above: Expected: 11/14/2023, Expires: Start: 11-14-2023 End: 11-14-2024 Ferritin [Mass/volume] in Serum or Plasma Ferritin Lab Routine S/P bariatric surgery Iron deficiency Expected: 11/14/2023, Expires: 11/14/2024 [employer] Comment on above: Expected: 11/14/2023, Expires: Start: 11-14-2023 End: 11-14-2024 Folate [Mass/volume] in Serum or Plasma Folate Lab Routine S/P bariatric surgery Expected: 11/14/2023, Expires: 11/14/2024 [employer] Comment on above: Expected: 11/14/2023, Expires: Start: 11-14-2023 End: 11-14-2024 Iron and Iron binding capacity panel - Serum or Plasma Iron Lab Routine S/P bariatric surgery Iron deficiency Expected: 11/14/2023, Expires: 11/14/2024 [employer] Comment on above: Expected: 11/14/2023, Expires: Start: 11-14-2023 End: 11-14-2024 Magnesium [Mass/volume] in Serum or Plasma Magnesium Lab Routine S/P bariatric surgery Expected: 11/14/2023, Expires: 11/14/2024 [employer] Comment on above: Expected: 11/14/2023, Expires: Start: 11-14-2023 End: 11-14-2024 Vitamin B1, whole blood Vitamin B1, whole blood Lab Routine S/P bariatric surgery Expected: 11/14/2023, Expires: 11/14/2024 [facility] Comment on above: Expected: 11/14/2023, Expires: Start: 11-14-2023 End: 11-14-2024 Zinc Zinc Lab Routine S/P bariatric surgery Expected: 11/14/2023, Expires: 11/14/2024 [employer] Work Phone: Comment on above: Expected: 11/14/2023, Expires: Start: 11-14-2023 End: 11-14-2023 Patient encounter procedure 11/14/2023 10:00 AM EST Office Visit [facility] [place] [address] [place] [phone] Mikayla Frazier MD [address] [facility] [address] [place] [address] [facility] [place] Start: 10-03-2023 End: 10-03-2023 Patient encounter procedure 10/03/2023 11:30 AM EST Office Visit [facility] [place] [address] [place] [phone] Mikayla Frazier MD [address] [place] [address] [facility] [place] Start: 09-10-2023 End: 06-11-2024 25-hydroxyvitamin D3 [Mass/volume] in Serum or Plasma Vitamin D Deficiency Screening (Vit D 25) Lab Routine Vitamin D deficiency Expected: 09/10/2023 (Approximate), Expires: 06/11/2024 [facility] [employer] Work Phone: Comment on above: Expected: 09/10/2023 (Approximate), Expi res: 06/11/2024 Start: 09-05-2023 End: 09-05-2023 Patient encounter procedure 09/05/2023 1:40 PM EST Office Visit [facility] [place] [address] [place] [phone] Mikayla Frazier MD [address] [place], [place] [id number] [facility] Start: 08-21-2023 Creatinine measurement Creatinine Level [facility] Start: 08-21-2023 Lipid panel Lipid Panel [facility] Start: 08-21-2023 Potassium measurement Potassium Level [facility] Start: 08-10-2023 End: 08-10-2024 25-hydroxyvitamin D3 [Mass/volume] in Serum or Plasma Vitamin D Deficiency Screening (Vit D 25) Lab Routine Deficiency of multiple nutrient elements Vitamin D deficiency Encounter for vitamin deficiency screening Expected: 08/10/2023 (Approximate), Expires: 08/10/2024 [facility] Comment on above: Expected: 08/10/2023 (Approximate), Expi res: 08/10/2024 Start: 08-10-2023 End: 08-10-2024 CBC panel - Blood by Automated count CBC Lab Routine Deficiency of multiple nutrient elements Iron deficiency Encounter for vitamin deficiency screening Expected: 08/10/2023 (Approximate), Expires: 08/10/2024 [facility] Work Phone: Comment on above: Expected: 08/10/2023 (Approximate), Expi res: 08/10/2024 Start: 08-10-2023 End: 08-10-2024 Cobalamin (Vitamin B12) [Mass/volume] in Serum or Plasma Vitamin B12 Lab Routine Deficiency of multiple nutrient elements Encounter for vitamin deficiency screening Expected: 08/10/2023 (Approximate), Expires: 08/10/2024 [facility] Comment on above: Expected: 08/10/2023 (Approximate), Expi res: 08/10/2024 Start: 08-10-2023 End: 08-10-2024 Comprehensive metabolic 1998 panel - Serum or Plasma Comprehensive metabolic panel Lab Routine Deficiency of multiple nutrient elements Encounter for vitamin deficiency screening Expected: 08/10/2023 (Approximate), Expires: 08/10/2024 [facility] [employer] Comment on above: Expected: 08/10/2023 (Approximate), Expi res: 08/10/2024 Start: 08-10-2023 End: 08-10-2024 Ferritin [Mass/volume] in Serum or Plasma Ferritin Lab Routine Deficiency of multiple nutrient elements Iron deficiency Encounter for vitamin deficiency screening Expected: 08/10/2023 (Approximate), Expires: 08/10/2024 [facility] Comment on above: Expected: 08/10/2023 (Approximate), Expi res: 08/10/2024 Start: 08-10-2023 End: 08-10-2024 Folate [Mass/volume] in Serum or Plasma Folate Lab Routine Deficiency of multiple nutrient elements Encounter for vitamin deficiency screening Expected: 08/10/2023 (Approximate), Expires: 08/10/2024 [facility] Comment on above: Expected: 08/10/2023 (Approximate), Expi res: 08/10/2024 Start: 08-10-2023 End: 08-10-2024 Iron and Iron binding capacity panel - Serum or Plasma Iron Lab Routine Deficiency of multiple nutrient elements Iron deficiency Encounter for vitamin deficiency screening Expected: 08/10/2023 (Approximate), Expires: 08/10/2024 [facility] Comment on above: Expected: 08/10/2023 (Approximate), Expi res: 08/10/2024 Start: 08-10-2023 End: 08-10-2024 Magnesium [Mass/volume] in Serum or Plasma Magnesium Lab Routine Deficiency of multiple nutrient elements Encounter for vitamin deficiency screening Expected: 08/10/2023 (Approximate), Expires: 08/10/2024 [facility] [employer] Comment on above: Expected: 08/10/2023 (Approximate), Expi res: 08/10/2024 Start: 08-10-2023 End: 08-10-2024 Vitamin B1, whole blood Vitamin B1, whole blood Lab Routine Deficiency of multiple nutrient elements Encounter for vitamin deficiency screening Expected: 08/10/2023 (Approximate), Expires: 08/10/2024 [facility] Comment on above: Expected: 08/10/2023 (Approximate), Expi res: 08/10/2024 Start: 08-10-2023 End: 08-10-2024 Zinc Zinc Lab Routine Deficiency of multiple nutrient elements Encounter for vitamin deficiency screening Expected: 08/10/2023 (Approximate), Expires: 08/10/2024 [facility] [employer] Comment on above: Expected: 08/10/2023 (Approximate), Expi res: 08/10/2024 Start: 08-10-2023 End: 08-10-2023 Patient encounter procedure [facility] [place] Start: 07-18-2023 End: 02-16-2024 25-hydroxyvitamin D3 [Mass/volume] in Serum or Plasma Vitamin D 25 hydroxy Lab Routine Deficiency of multiple nutrient elements Morbid obesity with BMI of 40.0-44.9, adult (HCC) Expected: 07/18/2023 (Approximate), Expires: 02/16/2024 [facility] Comment on above: Expected: 07/18/2023 (Approximate), Expi res: 02/16/2024 Start: 07-18-2023 End: 02-16-2024 CBC panel - Blood by Automated count CBC Lab Routine Deficiency of multiple nutrient elements Morbid obesity with BMI of 40.0-44.9, adult (HCC) Expected: 07/18/2023 (Approximate), Expires: 02/16/2024 [facility] [employer] Comment on above: Expected: 07/18/2023 (Approximate), Expi res: 02/16/2024 Start: 07-18-2023 End: 02-16-2024 Cobalamin (Vitamin B12) [Mass/volume] in Serum or Plasma Vitamin B12 Lab Routine Deficiency of multiple nutrient elements Morbid obesity with BMI of 40.0-44.9, adult (HCC) Expected: 07/18/2023 (Approximate), Expires: 02/16/2024 [facility] [employer] Comment on above: Expected: 07/18/2023 (Approximate), Expi res: 02/16/2024 Start: 07-18-2023 End: 02-16-2024 Comprehensive metabolic 1998 panel - Serum or Plasma Comprehensive metabolic panel Lab Routine Deficiency of multiple nutrient elements Morbid obesity with BMI of 40.0-44.9, adult (HCC) Expected: 07/18/2023 (Approximate), Expires: 02/16/2024 [facility] [employer] Comment on above: Expected: 07/18/2023 (Approximate), Expi res: 02/16/2024 Start: 07-18-2023 End: 02-16-2024 Ferritin [Mass/volume] in Serum or Plasma Ferritin Lab Routine Primary hypertension Type 2 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 without complication, unspecified whether mcfp insulin use (HCC) Deficiency of multiple nutrient elements Morbid obesity with BMI of 40.0-44.9, adult (HCC) Arthralgia of both knees Expected: 07/18/2023 (Approximate), Expires: 02/16/2024 [facility] [employer] Comment on above: Expected: 07/18/2023 (Approximate), Expi res: 02/16/2024 Start: 07-18-2023 End: 02-16-2024 Folate [Mass/volume] in Serum or Plasma Folate Lab Routine Deficiency of multiple nutrient elements Morbid obesity with BMI of 40.0-44.9, adult (HCC) Expected: 07/18/2023 (Approximate), Expires: 02/16/2024 [facility] [employer] Comment on above: Expected: 07/18/2023 (Approximate), Expi res: 02/16/2024 Start: 07-18-2023 End: 02-16-2024 Iron and Iron binding capacity panel - Serum or Plasma Iron Lab Routine Primary hypertension 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 2 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 without complication, 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) Deficiency of multiple nutrient elements Morbid obesity with BMI of 40.0-44.9, adult (HCC) Arthralgia of both knees Expected: 07/18/2023 (Approximate), Expires: 02/16/2024 [facility] [employer] Comment on above: Expected: 07/18/2023 (Approximate), Expi res: 02/16/2024 Start: 07-18-2023 End: 02-16-2024 Lipid 1996 panel - Serum or Plasma Lipid panel Lab Routine Deficiency of multiple nutrient elements Morbid obesity with BMI of 40.0-44.9, adult (HCC) Expected: 07/18/2023 (Approximate), Expires: 02/16/2024 [facility] [employer] Comment on above: Expected: 07/18/2023 (Approximate), Expi res: 02/16/2024 Start: 07-18-2023 End: 02-16-2024 Magnesium [Mass/volume] in Serum or Plasma Magnesium Lab Routine Deficiency of multiple nutrient elements Morbid obesity with BMI of 40.0-44.9, adult (HCC) Expected: 07/18/2023 (Approximate), Expires: 02/16/2024 [facility] [employer] Comment on above: Expected: 07/18/2023 (Approximate), Expi res: 02/16/2024 Start: 07-18-2023 End: 02-16-2024 Vitamin B1, whole blood Vitamin B1, whole blood Lab Routine Deficiency of multiple nutrient elements Morbid obesity with BMI of 40.0-44.9, adult (HCC) Expected: 07/18/2023 (Approximate), Expires: 02/16/2024 [facility] [employer] Comment on above: Expected: 07/18/2023 (Approximate), Expi res: 02/16/2024 Start: 07-18-2023 End: 02-16-2024 Zinc Zinc Lab Routine Deficiency of multiple nutrient elements Morbid obesity with BMI of 40.0-44.9, adult (HCC) Expected: 07/18/2023 (Approximate), Expires: 02/16/2024 [facility] [employer] [facility] Work Phone: Comment on above: Expected: 07/18/2023 (Approximate), Expi res: 02/16/2024 Start: 07-04-2023 End: 04-03-2024 25-hydroxyvitamin D3 [Mass/volume] in Serum or Plasma Vitamin D 25 hydroxy Lab Routine Low vitamin D level Vitamin D deficiency Expected: 07/04/2023 (Approximate), Expires: 04/03/2024 [facility] [employer] Comment on above: Expected: 07/04/2023 (Approximate), Expi res: 04/03/2024 Start: 07-04-2023 End: 04-03-2024 Ferritin [Mass/volume] in Serum or Plasma Ferritin Lab Routine Low hemoglobin Expected: 07/04/2023 (Approximate), Expires: 04/03/2024 [facility] [employer] Comment on above: Expected: 07/04/2023 (Approximate), Expi res: 04/03/2024 Start: 07-04-2023 End: 04-03-2024 Hemoglobin [Mass/volume] in Blood Hemoglobin and hematocrit, blood Lab Routine Low hemoglobin Expected: 07/04/2023 (Approximate), Expires: 04/03/2024 [facility] [employer] Comment on above: Expected: 07/04/2023 (Approximate), Expi res: 04/03/2024 Start: 07-04-2023 End: 04-03-2024 Iron and Iron binding capacity panel - Serum or Plasma Iron Lab Routine Low hemoglobin Expected: 07/04/2023 (Approximate), Expires: 04/03/2024 [facility] Work Phone: Comment on above: Expected: 07/04/2023 (Approximate), Expi res: 04/03/2024 Start: 06-06-2023 End: 06-06-2023 Patient encounter procedure 06/06/2023 1:40 PM EDT Office Visit [facility] [address] [place] [address] Mikayla Frazier MD [address] [place], [place] [id number] [facility] Start: 05-30-2023 End: 02-28-2024 25-hydroxyvitamin D3 [Mass/volume] in Serum or Plasma Vitamin D 25 hydroxy Lab Routine Vitamin D deficiency Expected: 05/30/2023 (Approximate), Expires: 02/28/2024 [facility] Comment on above: Expected: 05/30/2023 (Approximate), Expi res: 02/28/2024 Start: 05-30-2023 End: 02-28-2024 Ferritin [Mass/volume] in Serum or Plasma Ferritin Lab Routine Low hemoglobin and low hematocrit Low serum ferritin level Expected: 05/30/2023 (Approximate), Expires: 02/28/2024 [facility] [employer] [facility] Work Phone: Comment on above: Expected: 05/30/2023 (Approximate), Expi res: 02/28/2024 Start: 05-30-2023 End: 02-28-2024 Hemoglobin [Mass/volume] in Blood Hemoglobin and hematocrit, blood Lab Routine Low hemoglobin and low hematocrit Low serum ferritin level Expected: 05/30/2023 (Approximate), Expires: 02/28/2024 [facility] [employer] Comment on above: Expected: 05/30/2023 (Approximate), Expi res: 02/28/2024 Start: 05-25-2023 COVID-19 Vaccine () COVID-19 Vaccine () [facility] Start: 05-25-2023 Influenza vaccination Influenza Vaccine (#1) [facility] Start: 05-04-2023 End: 05-04-2023 Patient encounter procedure 05/04/2023 10:10 AM EDT Office Visit [facility] [address] [place] [id number] Mikayla Frazier MD [address] [place] [address] [facility] Start: 03-29-2023 End: 02-28-2024 Magnesium [Mass/volume] in Serum or Plasma Magnesium Lab Routine Low magnesium level Expected: 03/29/2023 (Approximate), Expires: 02/28/2024 [facility] Comment on above: Expected: 03/29/2023 (Approximate), Expi res: 02/28/2024 Start: 03-23-2023 End: 03-23-2023 Patient encounter procedure [facility] Start: 02-15-2023 End: 02-15-2023 Patient encounter procedure 02/15/2023 Office Visit Bariatrics Tung Curry MD [address] [place] [address] [facility] Start: 01-19-2023 Creatinine measurement Creatinine [facility] Start: 01-19-2023 Hemoglobin A1c measurement Diabetes: Hemoglobin A1C [facility] Start: 01-19-2023 Potassium [Moles/volume] in Serum or Plasma Potassium [facility] Start: 08-21-2022 End: 08-21-2022 Patient encounter procedure 08/21/2022 Office Visit Bariatrics Carlton Salvador PA [address] [place] [address] [facility] Start: 06-07-2022 Creatinine measurement Creatinine monitoring [facility] Start: 06-07-2022 Diabetes: Urine Albumin-Creatinine Ratio for Kidney Health Diabetes: Urine Albumin-Creatinine Ratio for Kidney Health [facility] Start: 06-07-2022 Diabetic microalbuminuria test Diabetic microalbuminuria test [facility] Start: 06-07-2022 Hemoglobin A1c measurement A1C test (Diabetic or Prediabetic) [facility] Start: 06-07-2022 Lipid panel [facility] Start: 06-07-2022 Potassium monitoring Potassium monitoring [facility] Start: 06-07-2022 Urine screening for protein [facility] Start: 05-25-2022 Influenza vaccination Flu vaccine (#1) [facility] Start: 05-22-2022 End: 05-22-2022 Patient encounter procedure 05/22/2022 Office Visit BariatricCarlton Villa PA [address] [place] [address] [facility] Start: 04-20-2022 Hemoglobin A1c measurement [facility] Start: 03-23-2022 End: 03-23-2022 Patient encounter procedure 03/23/2022 Office Visit Tung Cohn MD [address] [place] [address] [facility] Start: 03-23-2022 End: 03-23-2022 Patient encounter procedure 03/23/2022 Office Visit Tung Cohn MD [address] [place] [address] [facility] Start: 03-09-2022 End: 03-09-2022 Patient encounter procedure 03/09/2022 Office Visit Tung Cohn MD [address] [place] [address] [facility] Start: 02-23-2022 End: 02-23-2022 Patient encounter procedure 02/23/2022 Office Visit Tung Cohn MD [address] [place] [address] [facility] Start: 02-21-2022 End: 02-15-2023 Protime/INR & PTT Protime/INR & PTT Lab Routine Morbid obesity with BMI of 45.0-49.9, adult (HCC) Expected: 02/21/2022, Expires: 02/15/2023 [facility] Work Phone: Comment on above: Expected: 02/21/2022, Expires: Start: 02-16-2022 End: 02-16-2022 Patient encounter procedure 02/16/2022 Office Visit Bariatrics Tung Curry MD [address] [place] [address] Bariatric [facility] Start: 02-15-2022 End: 02-15-2022 Patient encounter procedure 02/15/2022 Appointment General Surgery Tung Curry MD [address] [place] [address] [facility] General Surgery Start: 02-06-2022 End: 02-06-2022 Patient encounter procedure 02/06/2022 Appointment General Surgery Tung Curry MD [address] [place] [address] [facility] General Surgery Start: 10-10-2021 End: 10-10-2021 Patient encounter procedure 10/10/2021 Office Visit Weight Management Selam Santiago APRN - NP [address] [place] [address] [facility] Start: 09-14-2021 End: 09-14-2021 Patient encounter procedure 09/14/2021 Appointment Radiology Carlton Salvador PA [address] [place], [place] [id number] [facility] Start: 09-09-2021 End: 09-09-2021 Patient encounter procedure 09/09/2021 Office Visit Weight Management Mikayla Frazier MD [address] [place], [place] [id number] [facility] Start: 09-01-2021 Pneumococcal 65+ years Vaccine (2 - PPSV23 or PCV20) Pneumococcal 65+ years Vaccine (2 - PPSV23 or PCV20) [facility] Start: 09-01-2021 Pneumococcal 65+ years Vaccine (2 of 2 - PPSV23) Pneumococcal 65+ years Vaccine (2 of 2 - PPSV23) [facility] Start: 09-01-2021 Pneumococcal Vaccine: 65+ Years (2 - PPSV23 if available, else PCV20) Pneumococcal Vaccine: 65+ Years (2 - PPSV23 if available, else PCV20) [facility] Start: 07-13-2021 End: 07-13-2021 Patient encounter procedure 07/13/2021 Office Visit Weight Management Mikayla Frazier MD [address] [place], [place] [id number] [facility] Start: 06-29-2021 COVID-19 Vaccine (3 - Booster for Moderna series) COVID-19 Vaccine (3 - Booster for Moderna series) [facility] Start: 06-15-2021 End: 06-15-2021 Patient encounter procedure 06/15/2021 Office Visit Weight Management Mikayla rFazier MD [address] [place], [place] [phone] [facility] Start: 05-31-2021 End: 05-31-2021 Patient encounter procedure 05/31/2021 Appointment IP Unit Tung Curry MD [address] [place], [place] [id number] [facility] [address] [facility] Start: 05-25-2021 Influenza vaccination [facility] Work Phone: Start: 05-11-2021 End: 05-11-2021 Patient encounter procedure 05/11/2021 Office Visit Weight Management Mikayla Frazier MD [address] [place], [place] [phone] [facility] Start: 04-13-2021 End: 04-13-2021 Patient encounter procedure 04/13/2021 Office Visit Weight Management Magda Patel, MS, RD, LD [address] [place] [address] [phone] [facility] Start: 03-24-2021 COVID-19 Vaccine (3 - Booster for Moderna series) COVID-19 Vaccine (3 - Booster for Moderna series) [facility] Start: 03-24-2021 COVID-19 Vaccine (3 - Moderna series) COVID-19 Vaccine (3 - Moderna series) [facility] Start: 03-14-2021 End: 03-14-2021 Patient encounter procedure 03/14/2021 Office Visit Weight Management Magda Patel, MS, RD, LD [address] [place], [place] [phone] [facility] Start: 03-04-2021 End: 03-04-2021 Patient encounter procedure 03/04/2021 Office Visit Weight Management Mikayla Frazier MD [address] [place] [address] [phone] [facility] Start: 01-29-2021 Annual Wellness Visit (AWV) Annual Wellness Visit (AWV) [facility] Start: 10-27-2020 Pneumococcal Vaccine: 65+ Years (2 - PPSV23 if available, else PCV20) Pneumococcal Vaccine: 65+ Years (2 - PPSV23 if available, else PCV20) [facility] Start: 2019 Pneumococcal 65+ years Vaccine (1 of 1 - PPSV23) Pneumococcal 65+ years Vaccine (1 of 1 - PPSV23) [facility] Work Phone: Start: 2019 Pneumococcal 65+ years Vaccine (2 of 2 - PPSV23) Pneumococcal 65+ years Vaccine (2 of 2 - PPSV23) [facility] Work Phone: Start: 12-02-2017 DTaP/Tdap/Td Vaccines (3 - Td or Tdap) DTaP/Tdap/Td Vaccines (3 - Td or Tdap) [facility] Start: 04-27-2017 End: 04-27-2017 Ecg routine ecg w/least 12 lds w/i&r EKG (In office) [facility] Start: 04-27-2017 End: 04-27-2017 Follow Up Appt Other Follow Up Appt Other [facility] Start: 04-27-2017 End: 04-27-2017 PFM PFM [facility] Start: 04-27-2017 End: 04-27-2017 Appointment Appointment [facility] Work Phone: Start: 04-27-2017 End: 04-27-2017 Electrocardiogram, complete EKG (In office) [facility] Work Phone: Start: 04-27-2017 End: 04-27-2017 Follow Up Appt Other Follow Up Appt Other [facility] Work Phone: Start: 04-27-2017 End: 04-27-2017 PFM PFM [facility] Work Phone: Start: 12-28-2015 End: 12-28-2015 PT-[facility]estibular [facility], [address] [place] [address], [address] [facility] Start: 12-28-2015 End: 12-28-2015 PT-[facility]estibular [facility], [address] [place] [address], [place], [address] [facility] Work Phone: Start: 09-29-2015 End: 10-01-2015 Gastroenterology Referral Gastroenterology Referral Marvin Meier, [address] [place] [address], [address], [place], [address] [facility] Start: 09-29-2015 End: 10-01-2015 Gastroenterology Referral Gastroenterology Referral Marvin Meier, [address] [place] [address], [address], [place], [address] [facility] Work Phone: Start: 09-22-2015 End: 09-22-2015 *CBC with Differential *CBC with Differential [facility] Start: 09-22-2015 End: 09-22-2015 *CMP Complete Metabolic Panel *CMP Complete Metabolic Panel [facility] Start: 09-22-2015 End: 09-22-2015 *Microalbumin, Creatine Ratio, rand urine *Microalbumin, Creatine Ratio, rand urine [facility] Start: 09-22-2015 End: 09-22-2015 Hemoglobin A1c/Hemoglobin.total mass fraction (Bld) *HgA1C [facility] Start: 09-22-2015 End: 09-22-2015 Lipid panel [AGGREGATE] *[facility] Profile [facility] Start: 09-22-2015 End: 09-22-2015 *CBC with Differential *CBC with Differential [facility] Work Phone: Start: 09-22-2015 End: 09-22-2015 *CMP Complete Metabolic Panel *CMP Complete Metabolic Panel [facility] Work Phone: Start: 09-22-2015 End: 09-22-2015 *Microalbumin, Creatine Ratio, rand urine *Microalbumin, Creatine Ratio, rand urine [facility] Work Phone: Start: 09-22-2015 End: 09-22-2015 HbA1c *HgA1C [facility] Work Phone: Start: 09-22-2015 End: 09-22-2015 Lipid panel [AGGREGATE] *Lipid Profile [facility] Work Phone: Start: 07-30-2015 End: 07-30-2015 Urine culture, bacteria *CUUR - Urine SANDRA Culture - Justo COL Count [facility] Start: 07-30-2015 End: 07-30-2015 Urine culture, bacteria *CUUR - Urine SANDRA Culture - Justo COL Count [facility] Work Phone: Start: 07-29-2015 End: 07-30-2015 *UA - Urinalysis w/o Micro *UA - Urinalysis w/o Micro [facility] Start: 07-29-2015 End: 07-30-2015 *UA - Urinalysis w/o Micro *UA - Urinalysis w/o Micro [facility] Work Phone: Start: 06-08-2015 End: 06-08-2015 Hemoglobin A1c/Hemoglobin.total mass fraction (Bld) [facility]C ([facility] Start: 06-08-2015 End: 06-08-2015 HbA1c HGB A1C (Office) [employer] Work Phone: Start: 04-02-2015 End: 04-02-2015 Office outpatient visit 5 minutes PT w/INR [facility] Start: 04-02-2015 End: 04-02-2015 Office/outpatient visit, est, level 1 PT w/INR [facility] Work Phone: Start: 03-19-2015 End: 03-19-2015 Office outpatient visit 5 minutes PT w/INR [facility] Start: 03-19-2015 End: 03-19-2015 Office/outpatient visit, est, level 1 PT w/INR [employer] Work Phone: Start: 03-05-2015 End: 03-05-2015 Hemoglobin A1c/Hemoglobin.total mass fraction (Bld) HGB A1C (Office) [facility] Start: 03-05-2015 End: 03-05-2015 HbA1c HGB A1C (Office) [employer] Work Phone: Start: 2014 Hepatitis B Vaccines (1 of 3 - Risk 3-dose series) Hepatitis B Vaccines (1 of 3 - Risk 3-dose series) [facility] Start: 2014 RSV Immunization aged 60 or older (1 - 1-dose 60+ series) RSV Immunization aged 60 or older (1 - 1-dose 60+ series) [facility] Start: 2014 RSV Immunization for Adults (1 - Risk 60-74 years 1-dose series) RSV Immunization for Adults (1 - Risk 60-74 years 1-dose series) [facility] Start: 2009 Screening for osteoporosis DEXA (modify frequency per FRAX score) [facility] Start: 2004 Screening for malignant neoplasm of breast Breast cancer screen [facility] Start: 2004 Screening for malignant neoplasm of colon Colon cancer screen colonoscopy [facility] Work Phone: Start: 2004 Shingles Vaccine (1 of 2) Shingles Vaccine (1 of 2) [facility] Start: 2004 Zoster Vaccines (1 of 2) Zoster Vaccines (1 of 2) [facility] Start: 1999 Screening for malignant neoplasm of colon [facility] Start: 1994 Screening for malignant neoplasm of breast Mammogram [facility] Start: 1973 DTaP/Tdap/Td vaccine (1 - Tdap) DTaP/Tdap/Td vaccine (1 - Tdap) [facility] Work Phone: Start: 1972 Diabetic microalbuminuria test Diabetic microalbuminuria test [facility] Work Phone: Start: 1972 Diabetic retinal exam Diabetic retinal exam [facility] Start: 1972 Hepatitis C screening [facility] Start: 1966 COVID-19 Vaccine (1) COVID-19 Vaccine (1) [facility] Start: 1966 Depression Monitoring Depression Monitoring [facility] Start: 1966 Depression Screening Depression Screening [facility] Start: 1964 Diabetic foot examination [facility] Start: 1964 Diabetic retinal exam Diabetic retinal exam [facility] Start: 1964 Glaucoma screening Diabetes: Retinopathy Screening [facility] Start: 1964 Hemoglobin A1c measurement A1C test (Diabetic or Prediabetic) [facility] Work Phone: Start: 1964 Lipid panel Lipid screen [facility] Work Phone: Start: 1964 Preventive dental service Diabetes: Dental Exam [facility] Start: 1954 Annual Wellness Visit (AWV) Annual Wellness Visit (AWV) [facility] Start: 1954 Creatinine measurement Creatinine monitoring [facility] Work Phone: Start: 1954 Echocardiography Echocardiogram [facility] Start: 1954 Hepatitis B Vaccines (1 of 3 - 3-dose series) Hepatitis B Vaccines (1 of 3 - 3-dose series) [facility] Start: 1954 Hepatitis C screening Hepatitis C screen [facility] Start: 1954 Medicare Annual Wellness (AWV) Medicare Annual Wellness (AWV) [facility] Start: 1954 Potassium monitoring Potassium monitoring [facility] Work Phone: Start: 1954 Screening for malignant neoplasm of colon [facility] Start: 1954 Screening for osteoporosis Bone Density Scan [facility] Start: 1954 Thyroid stimulating hormone measurement TSH Level [facility] [employer] Basic metabolic 2000 panel - Serum or Plasma Basic Metabolic Panel Lab Routine Daily until discontinued starting 02/16/2022, 1 completed [employer] Work Phone: Comment on above: Daily until discontinued starting 2021, 1 completed CBC panel - Blood by Automated count CBC Lab Routine Daily until discontinued starting 02/16/2022, 1 completed [employer] Work Phone: Comment on above: Daily until discontinued starting 2021, 1 completed Continuous pulse oximetry Pulse oximetry, continuous Respiratory Care Routine Every 4hr until discontinued starting 02/15/2022 [employer] Phone: Comment on above: Every 4hr until discontinued starting EKG 12 Lead EKG 12 Lead ECG Routine Pre-operative exam Morbid obesity due to excess calories (HCC) Type 2 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 with other specified complication, unspecified whether mcfp insulin use (HCC) MITZI on CPAP 01/30/2022 12:04 PM EDT [employer] Phone: End: 01-30-2022 Glucose [Mass/volume] in Serum or Plasma POCT Glucose Point of Care Testing Routine One Time for 1 Occurrences starting 01/30/2022 until 01/30/2022 [employer] Phone: Comment on above: One Time for 1 Occurrences starting 05/2022 until 01/30/2022 Glucose [Mass/volume ] in Serum or Plasma POCT Glucose Point of Care Testing STAT As Needed until discontinued starting 02/15/2022 [employer] Phone: Comment on above: As Needed until discontinued starting Glucose [Mass/volume ] in Serum or Plasma POCT Glucose Point of Care Testing Routine 4X Daily (AC & HS) until discontinued starting 02/16/2022 [employer] Phone: Comment on above: 4X Daily (AC & HS) until discontinued st arting 02/16/2022 Home BIPAP or CPAP Home BIPAP or CPAP Respiratory Care Routine Daily until discontinued starting 02/15/2022 [employer] Phone: Comment on above: Daily until discontinued starting 2021 Oxygen therapy [[facility] Data Set] Initiate Oxygen Therapy Protocol Respiratory Care Routine As Needed until discontinued starting 02/16/2022 [facility] Work Phone: Comment on above: As Needed until discontinued starting Patient Education [facility] Work Phone: Patient referral [facility] Work Phone: Spirometry panel Incentive nimo metry Respiratory Care Routine Every 1hr while awake until discontinued starting 02/16/2022 [facility] Work Phone: Comment on above: Every 1hr while awake until discontinued starting 02/16/2022 End: 06-07-2021 Vitamin B1, Whole Blood Vitamin B1, Whole Blood Lab Routine Class 3 severe obesity due to excess calories with serious comorbidity and body mass index (BMI) of 45.0 to 49.9 in adult ([facility]) Type 2 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 with other specified complication, 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 ([facility]) Hypercholesteremia Essential hypertension MITZI on CPAP Back pain, unspecified back location, unspecified back pain laterality, unspecified chronicity 1 Occurrences starting 06/07/2021 until 06/07/2021 [facility] Work Phone: Comment on above: 1 Occurrences starting 06/07/2021 until 06/07/2021 Vitamin B1, Whole Blood Vitamin B1, Whole Blood Lab Routine Class 3 severe obesity due to excess calories with serious comorbidity and body mass index (BMI) of 45.0 to 49.9 in adult ([facility]) Type 2 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 with other specified complication, 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 ([facility]) Hypercholesteremia Essential hypertension MITZI on CPAP Back pain, unspecified back location, unspecified back pain laterality, unspecified chronicity 06/07/2021 10:48 AM EDT [facility] Work Phone: End: 06-07-2021 Zinc Zinc Lab Routine Class 3 severe obesity due to excess calories with serious comorbidity and body mass index (BMI) of 45.0 to 49.9 in adult ([facility]) Type 2 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 with other specified complication, unspecified whether mcfp insulin use ([facility]) Hypercholesteremia Essential hypertension MITZI on CPAP Back pain, unspecified back location, unspecified back pain laterality, unspecified chronicity 1 Occurrences starting 06/07/2021 until 06/07/2021 [facility] Work Phone: Comment on above: 1 Occurrences starting 06/07/2021 until 06/07/2021 Zinc Zinc Lab Routine Class 3 severe obesity due to excess calories with serious comorbidity and body mass index (BMI) of 45.0 to 49.9 in adult (HCC) Type 2 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 with other specified complication, 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 ([facility]) Hypercholesteremia Essential hypertension MITZI on CPAP Back pain, unspecified back location, unspecified back pain laterality, unspecified chronicity 06/07/2021 10:48 AM EDT [facility] Work Phone: End: 03-20-2022 Zinc [facility] Work Phone: Comment on above: 1 Occurrences starting 03/20/2022 until 03/20/2022 End: 05-18-2022 Zinc [facility] Work Phone: Comment on above: 1 Occurrences starting 05/18/2022 until 05/18/2022 Immunizations Immunization Date Immunization Notes Care Provider [facility] 07-08-2024 influenza virus vacc ine, unspecified formulation ARNOLDO WASHBURN PROPERTY PRESERVATION SPECIALIST-RESOURCE CONSERVATION MANAGER [facility] 07-18-2023 influenza, injectabl e, quadrivalent, preservative free Dr. Elissa Dial Work Phone: [facility] 07-18-2023 influenza virus vacc ine, unspecified formulation Mikayla Frazier MD Work Phone: [facility] 09-08-2022 pneumococcal polysaccharide vaccine, 23 valent DECEMBER QUASQUETON PROPERTY PRESERVATION SPECIALIST-RESOURCE CONSERVATION MANAGER [facility] 06-08-2022 influenza virus vacc ine, unspecified formulation Mikayla Frazier MD Work Phone: [facility] 06-02-2021 influenza virus vacc ine, unspecified formulation Tung Curry MD Work Phone: [facility] Work Phone: 01-27-2021 COVID-19, Moderna, Primary or Immunocompromised, PF, 100mcg/0.5mL Tung Curry MD Work Phone: [facility] 12-30-2020 COVID-19, Moderna, Primary or Immunocompromised, PF, 100mcg/0.5mL Tung Curry MD Work Phone: [facility] Work Phone: 09-01-2020 influenza virus vacc ine, unspecified formulation ARNOLDO WASHBURN PROPERTY PRESERVATION SPECIALIST[facility] 09-01-2020 Influenza, Quadv, adjuvanted, 65 yrs +, IM, PF (Fluad) Tung Curry MD Work Phone: [facility] Work Phone: 09-01-2020 pneumococcal conjuga te vaccine, 13 valent Tung Curry MD Work Phone: [facility] Work Phone: 07-16-2018 influenza virus vacc ine, unspecified formulation ARNOLDO WASHBURN PROPERTY PRESERVATION SPECIALIST[facility] 07-16-2018 influenza, injectabl e, quadrivalent, preservative free Tung Curry MD Work Phone: [facility] Work Phone: 06-04-2017 influenza virus vacc ine, unspecified formulation ARNOLDO WASHBURN PROPERTY PRESERVATION SPECIALIST[facility] 06-04-2017 influenza, injectabl e, quadrivalent, preservative free Tung Curry MD Work Phone: [facility] Work Phone: 06-04-2017 tetanus toxoid, redu yi diphtheria toxoid, and acellular pertussis vaccine, adsorbed Tung Curry MD Work Phone: [facility] Work Phone: 05-23-2017 Influenza virus vaccine [facility] 11-08-2016 influenza virus vacc ine, unspecified formulation ARNOLDO WASHBURN PROPERTY PRESERVATION SPECIALIST-RESOURCE CONSERVATION MANAGER [facility] 10-30-2016 Influenza virus vaccine [facility] 06-08-2015 varicella zoster imm une globulin; Translations: [ZOSTER VACCINE LIVE] Enrique Stanley [facility] Work Phone: 09-01-2014 influenza virus vacc ine, unspecified formulation ARNOLDO WASHBURN PROPERTY PRESERVATION SPECIALIST-RESOURCE CONSERVATION MANAGER [facility] 05-22-2013 tetanus toxoid, redu yi diphtheria toxoid, and acellular pertussis vaccine, adsorbed Tung Curry MD Work Phone: [facility] Work Phone: 07-20-2009 novel influenza-H1N1 -09, preservative-free, injectable Tung Curry MD Work Phone: [facility] Work Phone: Payers Date Payer Category Payer Self-pay [id number] 2021 Medicare supplementa l policy (as second payer) [facility] [place] MEDICARE SUPPLEMENT [id number] 2020 Unknown [id number] 2019 Private Health Insurance [id number] 2019 Unknown [id number] .[id number] 2016 Medicare [id number] 2015 Medicare [id number] .[id number] 2015 Medicare [id number] [id number] .[id number] 1954 Unknown [id number] 2.16.840.1.670054.3.579.2 .627 1954 Unknown [id number] 2.16.840.1.113987.3.579.2 .627 1954 Unknown [id number] 2.16.840.1.984148.3.579.2 .627 1954 Unknown [id number] 2.16.840.1.149277.3.579.2 .627 1954 Unknown [id number] 2.16.840.1.812987.3.579.2 .627 1954 Unknown [id number] 2.16.840.1.936992.3.579.2 .627 Unknown [id number] 2.16.840.1.706605.3.579.2 .462 Unknown [id number] 2.16.840.1.921464.3.579.2 .462 Unknown [id number] 2.16.840.1.199007.3.579.2 .462 Unknown [id number] 2.16.840.1.890786.3.579.2 .462 Unknown [id number] 2.16.840.1.396779.3.579.2 .462 Unknown [id number] 2.16.840.1.266999.3.579.2 .462 Unknown [id number] 2.16.840.1.155885.3.579.2 .462 Unknown [id number] 2.16.840.1.317106.3.579.2 .462 Unknown [id number] 2.16.840.1.433775.3.579.2 .462 Unknown [id number] 2.16.840.1.462080.3.579.2 .462 Unknown [id number] 2.16.840.1.325250.3.579.2 .462 Unknown [id number] 2.16.840.1.643964.3.579.2 .462 Unknown [id number] 2.16.840.1.028455.3.579.2 .462 Unknown [id number] 2.16.840.1.631511.3.579.2 .462 Unknown [id number] 2.16.840.1.303124.3.579.2 .462 Social History Date Type Detail Facility Start: 02-03-2021 End: 04-13-2025 Tobacco smoking status NHIS Never smoker [employer] Work Phone: Start: 02-03-2021 End: 06-15-2021 Tobacco use and exposure Never used [facility] Start: 02-03-2021 End: 08-21-2022 Alcohol intake Ex-drinker (finding) [facility] Work Phone: Start: 02-03-2021 History SDOH Alcohol Frequency 1 [employer] Work Phone: Start: 1955 Sex Assigned At Not on file S [employer] Work Phone: Start: 1955 Sex Assigned At Female S [employer] Work Phone: Start: 01-20-2022 End: 06-05-2023 Exposure to SARS-CoV-2 (event) Not sure [facility] Start: 05-16-2021 End: 07-18-2023 Tobacco smoking status NHIS Unknown if ever smoked [facility] Sex Assigned At [facility] Start: 02-15-2023 End: 04-23-2024 History of Social function [facility] Start: 02-15-2023 End: 07-14-2025 Tobacco use panel [facility] Start: 02-12-2023 Gender identity Identifies as female gender (finding) [facility] Start: 07-13-2022 Sexual orientation Heterosexual (amanuel jay) [facility] Start: 12-05-2016 None [facility] Start: 12-05-2016 Spouse/ Signif icant Other [facility] Start: 05-30-2013 End: 04-24-2022 Sex Female (finding) [facility] Medical Equipment Procedure Code Equipment Code Equipment Origin al Text Equipment Identifier Dates INSULIN PEN NEEDLE [id number] Start: 06-08-2015 End: 04-25-2017 INSULIN PEN NEEDLE [facility] T PEN NEEDLES 31G X 8 MM [facility] [id number] Start: 07-21-2015 TEST BLOOD SUGAR twice a day as directed [id number] Start: 11-09-2020 Functional Status Date Assessment Result Facility 07-14-2025 Functional Status with [employer] Work Phone: 07-14-2025 dependent [employer] Work Phone: 05-13-2025 Functional Status with [employer] Work Phone: 05-13-2025 dependent [employer] Work Phone: 11-01-2024 Functional Status Assistive Device Cane A [facility] 11-01-2024 Functional Status [facility] 04-09-2024 Functional Status [facility] 06-03-2023 Functional Status Assistive Device None [facility] 06-03-2023 Functional Status Ambulation in [facility] 06-03-2023 Functional Status Standard Safet y ID band on, Call device within reach, Bed in low position, Wheels locked, Upper/Half-Length side-rails up, Bedside Cart Locked, Safety level maintained [facility] 06-01-2023 Functional Status Identified as high risk, Fall ID band on, Door open, Room check performed [facility] 06-01-2023 Functional Status Ethel rangel [facility] 06-01-2023 Functional Status Independent Ethel rangel [facility] 06-01-2023 Functional Status Ethel rangel [facility] 06-01-2023 Functional Status Ethel rangel [facility] 05-31-2023 Functional Status Ethel rangel [facility] 05-31-2023 Functional Status Ethel rangel [facility] 05-31-2023 Functional Status Ethel Ng [facility] 05-31-2023 Functional Status Single level [facility] 05-31-2023 Functional Status None Ethel Ng [facility] 10-02-2022 Functional Status ID band on, Allergy Band on, Call device within reach, Bed in low position, Wheels locked, Upper/Half-Length side-rails up, Phone within reach, Safety level maintained [facility] 04-20-2022 Functional Status Awake, Resting [facility] 04-20-2022 Functional Status Room check performed [facility] 04-20-2022 [facility]-20-[facility]22 Functional Status Demonstrates C orrect Call Light Use Yes [facility] 04-20-2022 Functional Status Maintained Ethel rangel [facility] 04-20-2022 Functional Status Ethel rnagel [facility] 04-19-2022 Functional Status 100 [facility] 04-19-[facility]22 Functional Status Ethel rangel [facility] 04-19-2022 Functional Status Independent Ethel rangel [facility] 04-19-2022 [facility] 04-19-2022 Functional Status Single level home [facility] 04-18-2022 Functional Status Ethel Ng [facility] 04-18-2022 Functional Status Sensory Deficits None [facility] 04-09-2022 Functional Status Independent Ethel Ng [facility] 04-09-2022 Functional Status Standard Safet y ID band on, Allergy Band on, Call device within reach, Bed in low position, Wheels locked, Upper/Half-Length side-rails up, Phone within reach, Bedside Cart Locked [facility] Mental Status Date Assessment Result Facility 05-13-2025 Cognitive Function [employer] Work Phone: 11-01-2024 Mental Status Orientation Oriented x 4 [facility] 11-01-2024 Mental Status [facility] 04-09-2024 Mental Status Oriented x 4 [facility] 06-03-2023 Mental Status Orientation Oriented x 4 [facility] 06-03-2023 Mental Status [facility] 06-01-2023 Mental Status Oriented x 4 [facility] 06-01-2023 Mental Status [facility] 05-31-2023 Mental Status [facility] 05-31-2023 Mental Status [facility] 10-02-2022 Mental Status Oriented x 4 [facility] 04-20-2022 Mental Status Oriented x 4 [facility] 04-20-2022 Mental Status [facility] 04-20-2022 Mental Status [facility] 04-19-2022 Mental Status [facility] 04-09-2022 Mental Status Orientation Oriented x 4 [facility] 04-09-2022 Mental Status [facility] Clinical Notes 01-30-2022 to 04-17-2025 Note Date & Type Note Facility 04-17-2025 Note . MICRO - Microbiology PROCEDURE: Urine Culture [O1 *1] SOURCE: Urine BODY SITE: COLLECTED DATE/TIME: 04/13/2025 08:57 EDT RECEIVED DATE/TIME: 04/13/2025 15:34 EDT START DATE/TIME: 04/13/2025 15:34 EDT FREE TEXT SOURCE: FINAL REPORTS Final Report [] Verified Date/Time/Personnel: 04/17/2025 08:12 EDT >100,000 cfu/ml Escherichia coli Confirmatory testing for ESBL production negative. The finding that isolates which initially screen positive but then have negative confirmatory testing may be due to the presence of other beta-lactamases such as Amp-C. >100,000 cfu/ml Escherichia coli #2 PRELIMINARY REPORTS Preliminary Report [] Verified Date/Time/Personnel: 04/16/2025 12:41 EDT >100,000 cfu/ml Escherichia coli SUZY to follow >100,000 cfu/ml Escherichia coli #2 Preliminary Report [] Verified Date/Time/Personnel: 04/15/2025 09:59 EDT >100,000 cfu/ml Escherichia coli SUZY to follow >100,000 cfu/ml Escherichia coli #2 SUZY to follow Preliminary Report [] Verified Date/Time/Personnel: 04/14/2025 13:02 EDT Culture results pending. Preliminary Report [] Verified Date/Time/Personnel: 04/13/2025 16:59 EDT Specimen received in lab. SUSCEPTIBILITY RESULTS Escherichia coli Antibiotic SUZY Dilut SUZY Inter Ampicillin <=8 Susceptible Ampicillin/ <=4/2 Susceptible Sulbactam Aztreonam <=4 Susceptible Cefazolin <=2 Susceptible Cefepime <=2 Susceptible Ceftolozane/ <=2 Susceptible Tazobactam Ciprofloxacin <=0.25 Susceptible Ertapenem <=0.5 Susceptible Gentamicin <=2 Susceptible ID Panel Not Not Applicable Applicable Imipenem <=1 Susceptible Levofloxacin <=0.5 Susceptible Meropenem <=1 Susceptible Minocycline <=4 Susceptible Nitrofurantoin <=32 Susceptible Trimethoprim/ <=0.5/9.5 Susceptible Sulfa MICRO - Microbiology SUSCEPTIBILITY RESULTS Escherichia coli #2 Antibiotic SUZY Dilut SUZY Inter Ampicillin <=8 Susceptible Ampicillin/ <=4/2 Susceptible Sulbactam Aztreonam <=4 Susceptible Cefazolin <=2 Susceptible Cefepime <=2 Susceptible Ceftolozane/ <=2 Susceptible Tazobactam Ciprofloxacin <=0.25 Susceptible Ertapenem <=0.5 Susceptible Gentamicin <=2 Susceptible ID Panel Not Not Applicable Applicable Imipenem <=1 Susceptible Levofloxacin <=0.5 Susceptible Meropenem <=1 Susceptible Minocycline <=4 Susceptible Nitrofurantoin <=32 Susceptible Trimethoprim/ <=0.5/9.5 Susceptible Sulfa Order Comments O1: Urine Culture Added by Discern Performing Locations *1: This test was performed at: [facility], [address] [place] [address], [facility] , [facility] 04-13-2025 Hospital Discharge instructions Patient Education 04/13/2025 16:26:04 Strep Throat, Adult, Hniq-nw-Agct Strep Throat, Adult Strep throat is an infection of the throat. It is caused by germs (bacteria). Strep throat is common during the cold months of the year. It mostly affects children who are 5 15 years old. However, people of all ages can get it at any time of the year. When strep throat affects the tonsils, it is called tonsillitis. When it affects the back of the throat, it is called pharyngitis. This infection spreads from person to person through coughing, sneezing, or having close contact. What are the causes? This condition is caused by the Streptococcus pyogenes germ. What increases the risk? You are more likely to develop this condition if: You care for young children. Children are more likely to get strep throat and may spread it to others. You go to crowded places. Germs can spread easily in such places. You kiss or touch someone who has strep throat. What are the signs or symptoms? Symptoms of this condition include: Fever or chills. Redness, swelling, or pain in the tonsils or throat. Pain or trouble when swallowing. White or yellow spots on the tonsils or throat. Tender glands in the neck and under the jaw. Bad breath. Red rash all over the body. This is rare. How is this treated? This condition may be treated with: Medicines that kill germs (antibiotics). Medicines that treat pain or fever. These include: ?Ibuprofen or acetaminophen. ?Aspirin, only for patients who are over the age of 18. ?Throat lozenges. ?Throat sprays. Follow these instructions at home: Medicines Take nemh-lks-whjnpmd and prescription medicines only as told by your doctor. Take your antibiotic medicine as told by your doctor. Do not stop taking the antibiotic even if you start to feel better. Eating and drinking If you have trouble swallowing, eat soft foods until your throat feels better. Drink enough fluid to keep your pee (urine) pale yellow. To help with pain, you may have: ?Warm fluids, such as soup and tea. ?Cold fluids, such as frozen desserts or popsicles. General instructions Rinse your mouth (gargle) with a salt-water mixture 3 4 times a day or as needed. To make a salt-water mixture, dissolve 1 tsp (3 6 g) of salt in 1 cup (237 mL) of warm water. Rest as much as you can. Stay home from work or school until you have been taking antibiotics for 24 hours. Avoid smoking or being around people who smoke. Keep all follow-up visits as told by your doctor. This is important. How is this prevented? Do not share food, drinking cups, or personal items. They can cause the germs to spread. Wash your hands well with soap and water. Make sure that all people in your house wash their hands well. Have family members tested if they have a fever or a sore throat. They may need an antibiotic if they have strep throat. Contact a doctor if: You have swelling in your neck that keeps getting bigger. You get a rash, cough, or earache. You cough up a thick fluid that is green, yellow-brown, or bloody. You have pain that does not get better with medicine. Your symptoms get worse instead of getting better. You have a fever. Get help right away if: You vomit. You have a very bad headache. Your neck hurts or feels stiff. You have chest pain or are short of breath. You have drooling, very bad throat pain, or changes in your voice. Your neck is swollen, or the skin gets red and tender. Your mouth is dry, or you are peeing less than normal. You keep feeling more tired or have trouble waking up. Your joints are red or painful. Summary Strep throat is an infection of the throat. It is caused by germs (bacteria). This infection can spread from person to person through coughing, sneezing, or having close contact. Take your medicines, including antibiotics, as told by your doctor. Do not stop taking the antibiotic even if you start to feel better. To prevent the spread of germs, wash your hands well with soap and water. Have others do the same. Do not share food, drinking cups, or personal items. Get help right away if you have a bad headache, chest pain, shortness of breath, a stiff or painful neck, or you vomit. This information is not intended to replace advice given to you by your health care provider. Make sure you discuss any questions you have with your health care provider. Document Released: 02/26/2009 Document Revised: 11/28/2019 Document Reviewed: 11/28/2019 [employer] Patient Education 2020 VCV. 04/13/2025 16:25:56 Urinary Tract Infection, Adult, Rtba-if-Dpny Urinary Tract Infection, Adult A urinary tract infection (UTI) is an infection of any part of the urinary tract. The urinary tract includes: The kidneys. The ureters. The bladder. The urethra. These organs make, store, and get rid of pee (urine) in the body. What are the causes? This is caused by germs (bacteria) in your genital area. These germs grow and cause swelling (inflammation) of your urinary tract. What increases the risk? You are more likely to develop this condition if: You have a small, thin tube (catheter) to drain pee. You cannot control when you pee or poop (incontinence). You are female, and: ?You use these methods to prevent : ?A medicine that kills sperm (spermicide). ?A device that blocks sperm (diaphragm). ?You have low levels of a female hormone (estrogen). ?You are . You have genes that add to your risk. You are sexually active. You take antibiotic medicines. You have trouble peeing because of: ?A prostate that is bigger than normal, if you are male. ?A blockage in the part of your body that drains pee from the bladder (urethra). ?A kidney stone. ?A nerve condition that affects your bladder (neurogenic bladder). ?Not getting enough to drink. ?Not peeing often enough. You have other conditions, such as: ?Diabetes. ?A weak disease-fighting system (immune system). ?Sickle cell disease. ?Gout. ?Injury of the spine. What are the signs or symptoms? Symptoms of this condition include: Needing to pee right away (urgently). Peeing often. Peeing small amounts often. Pain or burning when peeing. Blood in the pee. Pee that smells bad or not like normal. Trouble peeing. Pee that is cloudy. Fluid coming from the vagina, if you are female. Pain in the belly or lower back. Other symptoms include: Throwing up (vomiting). No urge to eat. Feeling mixed up (confused). Being tired and grouchy (irritable). A fever. Watery poop (diarrhea). How is this treated? This condition may be treated with: Antibiotic medicine. Other medicines. Drinking enough water. Follow these instructions at home: Medicines Take ziqh-alq-jcadjwd and prescription medicines only as told by your doctor. If you were prescribed an antibiotic medicine, take it as told by your doctor. Do not stop taking it even if you start to feel better. General instructions Make sure you: ?Pee until your bladder is empty. ?Do not hold pee for a long time. ?Empty your bladder after sex. ?Wipe from front to back after pooping if you are a female. Use each tissue one time when you wipe. Drink enough fluid to keep your pee pale yellow. Keep all follow-up visits as told by your doctor. This is important. Contact a doctor if: You do not get better after 1 2 days. Your symptoms go away and then come back. Get help right away if: You have very bad back pain. You have very bad pain in your lower belly. You have a fever. You are sick to your stomach (nauseous). You are throwing up. Summary A urinary tract infection (UTI) is an infection of any part of the urinary tract. This condition is caused by germs in your genital area. There are many risk factors for a UTI. These include having a small, thin tube to drain pee and not being able to control when you pee or poop. Treatment includes antibiotic medicines for germs. Drink enough fluid to keep your pee pale yellow. This information is not intended to replace advice given to you by your health care provider. Make sure you discuss any questions you have with your health care provider. Document Released: 02/26/2009 Document Revised: 08/28/2019 Document Reviewed: 03/20/2019 [employer] Patient Education 2020 VCV. Follow Up Care 04/13/2025 06:03:10 With:Follow up with primary care provider Address:Unknown When: Unknown With:ELISSA DIAL Address: [address] [place] [address]- [employer] (1) When: Unknown [facility] 04-13-2025 Note Discharge Instructions Thank you for allowing [facility] to assist you with your healthcare needs. The following is important discharge information regarding your hospital visit. Your Care Team ELISSA DIAL DO Your Diagnosis Asthma Bacteriuria Factor 5 Leiden mutation, heterozygous Strep pharyngitis Type 2 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 What to do next Instructions From Your Doctor You were admitted to monitor your oxygen saturations as they were quite variable in the emergency department. You were taking very shallow breaths. Your oxygen saturations have been adequate above 92%. Please continue to use your incentive spirometer. You have strep throat as well as bacteria in your urine. A prescription for cefuroxime 500 mg to be taken twice daily starting 04/14/2025 has been sent to your pharmacy. Please take the full course of antibiotics. You mentioned that you were dizzy. It looks like you have a history of dizziness and have Antivert (meclizine) for this. You are just started on buspirone. This medication can cause dizziness as well. Your blood pressure was taken laying down, sitting, standing up and your vital signs were normal with this. It may take time for you to adjust to this new medication. Follow Up Appointments Follow Up with Follow up with primary care provider Follow Up with ELISSA BRONSONJAYRO Where:[place] [address]- [employer] (1) The Following Activity and Diet Have Been Ordered for You Discharge Activity - Ordered -- Resume your pre-hospitalization activity, 04/13/25 16:09:00 EDT Discharge Diet - Ordered -- No changes were made to your diet during your hospital stay. Please resume your pre hospitalization diet on discharge., 04/13/25 16:09:00 EDT Allergies Darvocet Tape rash Xarelto Zestril cough clindamycin rash, hives, welts metoprolol Medications Please ask your primary doctor or pharmacist before taking any other medication not listed, including over the counter drugs, herbal medications, vitamins and or supplements as they may interact with your home medications. What How Much When Instructions Last Dose New cefuroxime (cefuroxime 500 mg oral tablet) 1 tab(s) by mouth Two (2) times a day Duration: 9 Days Pickup at [facility]/pharmacy #[id number] Changed furosemide (furosemide 20 mg oral tablet) 1 tab(s) by mouth Once a day as needed for Swelling Changed losartan (losartan 100 mg oral tablet) 1 tab(s) by mouth Every day today @ 3p Changed metFORMIN (MetFORMIN (Eqv-Glucophage XR) 500 mg oral tablet, EXTENDED RELEASE) 1 tab(s) by mouth Two (2) times a day Changed traMADol (traMADol 50 mg oral tablet) 1 tab(s) by mouth Every 6 hours Unchanged albuterol (Ventolin HFA MDI (90 mcg/ inh) inhalation aerosol) 2 puff(s) by inhalation Every 4 hours as needed for as needed for wheezing Unchanged amLODIPine (amLODIPine 5 mg oral tablet) 1 tab(s) by mouth Once a day today @ 3p Unchanged atorvastatin (Lipitor 40 mg oral tablet) 1 tab(s) by mouth Once a day Unchanged busPIRone (busPIRone 5 mg oral tablet) 1 tab(s) by mouth Two (2) times a day Unchanged DULoxetine (DULoxetine 60 mg oral delayed release capsule) 1 cap by mouth Once a day today @ 3p Unchanged fesoterodine (Toviaz 8 mg oral tablet, extended release) 1 tab(s) by mouth Once a day (in the morning) 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 Unchanged gabapentin (Neurontin 100 mg oral capsule) 1 cap by mouth Three (3) times a day today @ 3p Unchanged hydroCHLOROthiazide (hydroCHLOROthiazide 25 mg oral tablet) 1 tab(s) by mouth Once a day Unchanged magnesium oxide (magnesium oxide 400 mg oral tablet) 1 tab(s) by mouth Once a day today @ 3p Unchanged meclizine (meclizine 25 mg oral tablet) 1 tab(s) by mouth Two (2) times a day as needed for as needed for dizziness Unchanged mirtazapine (mirtazapine 7.5 mg oral tablet) 1 tab(s) by mouth Daily at bedtime Unchanged omeprazole (PriLOSEC OTC 20 mg oral delayed release tablet) 1 tab(s) by mouth Two (2) times a day Unchanged ondansetron (Zofran 8 mg oral tablet) 1 tab(s) by mouth Every 8 hours as needed for Nausea/Vomiting Unchanged potassium chloride (Potassium Chloride (Eqv-K-Tab) 20 mEq oral tablet, extended release) 1 tab(s) by mouth Two (2) times a day Take with food. Unchanged rOPINIRole (rOPINIRole 3 mg oral tablet) 3 tab(s) by mouth Daily at bedtime Unchanged warfarin (warfarin 2 mg oral tablet) 1 tab(s) by mouth Once a day Unchanged warfarin (warfarin 3 mg oral tablet) 1 tab(s) by mouth Every day today @ Pharmacy Information [id number]: [address], [place] [id number] [phone] What How Much When Comments Stop Taking cyanocobalamin (Vitamin B12) 2 tab(s) by mouth Once a day Unsure of dose Stop Taking fluticasone-salmeterol (Wixela Inhub 250 mcg-50 mcg inhalation powder) 1 puff(s) by inhalation Two (2) times a day Stop Taking glipiZIDE (glipiZIDE 5 mg oral tablet) 1 tab(s) by mouth Once a day before a meal Stop Taking multivitamin with minerals (Flintstones Complete oral tablet, chewable) 1 tab(s) by mouth Once a day Please take this list to your next doctor s visit. Bring all medications you take, including over the counter medications, herbals and other supplements with you to your doctor s visit. Patients and families are reminded to discard old lists and to update any records with all medication providers or retail pharmacies. Medication Leaflets cefuroxime (oral/injection) (SEF ue PATIENCE eem) What is the most important information I should know about cefuroxime? Cefuroxime can cause serious or life-threatening allergic reactions. Tell your doctor if you have an allergy to an antibiotic, especially penicillin. What is cefuroxime? Cefuroxime is a cephalosporin (SEF a low spor in) antibiotic that is used to treat bacterial infections of the ear, nose, throat, lungs, skin, bones, joints, bladder, or kidneys. Cefuroxime is also used to treat gonorrhea, sepsis, or early Lyme disease. Cefuroxime injection is sometimes given before and after a surgery to prevent infection. Cefuroxime may also be used for purposes not listed in this medication guide. What should I discuss with my healthcare provider before using cefuroxime? Cefuroxime can cause serious or life-threatening allergic reactions. You should not use this medicine if you have ever had a severe allergic reaction to an antibiotic, such as: cefuroxime, cefadroxil, cefdinir, cefoxitin, cefprozil, ceftriaxone, cephalexin, Keflex, Omnicef, and others; avibactam, relebactam, sulbactam, tazobactam, vaborbactam, and others; or amoxicillin (Amoxil, Augmentin, Moxatag), ampicillin, dicloxacillin, oxacillin, penicillin, and others. Tell your doctor if you have ever had: an stomach or intestinal disorder such as colitis; kidney disease; liver disease; or heart problems. Cefuroxime oral suspension may contain phenylalanine and could be harmful if you have phenylketonuria (PKU). Tell your doctor if you are or . If you are being treated for gonorrhea: Having gonorrhea during may increase the risk of complications including premature , low weight, or gonorrhea developing the . The benefit of treating this condition may outweigh any risks to the baby. Not approved for use by anyone younger than 3 months old. How should I use cefuroxime? Follow all directions on your prescription label and read all medication guides or instruction sheets. Use the medicine exactly as directed. Cefuroxime oral is taken by mouth. Swallow the tablet whole and do not crush, chew, or break it. Take with or without food. Shake the oral suspension (liquid). Measure a dose with the supplied measuring device (not a kitchen spoon). Take with food. Tell your doctor if a child taking cefuroxime has trouble swallowing the medicine. Cefuroxime oral may be given as a single dose to treat gonorrhea. For most other infections, cefuroxime oral is usually given for 7 to 10 days, or for 20 days to treat early Lyme disease. Your dose needs may change if you switch from tablets to oral suspension. Follow your doctor's dosing instructions very carefully. Cefuroxime injection is given into a muscle or a vein, usually for 5 to 10 days. Ask your doctor or pharmacist if you don't understand how to use an injection. You may need to mix cefuroxime with a liquid (diluent) before using it. Use only the diluent your doctor has recommended. Prepare an injection only when you are ready to give it. Call your pharmacist if the medicine has changed colors or has particles in it. Do not reuse a needle or syringe. Place them in a puncture-proof 'sharps' container and dispose of it following state or local laws. Keep out of the reach of children and pets. Keep using this medicine even if your symptoms quickly improve. Skipping doses could make your infection resistant to medication. Cefuroxime will not treat a viral infection (flu or a common cold). Cefuroxime can affect the results of certain medical tests. Tell any doctor who treats you that you are using cefuroxime. Store the tablets at room temperature away from moisture and heat. Keep the bottle tightly closed when not in use. Store the oral suspension in the refrigerator, do not freeze. Throw away any unused medicine after 10 days. After mixing cefuroxime for injection, you will need to use it within a certain number of hours or days. This will depend on the diluent and how you store the mixture (at room temperature or in a refrigerator). Be sure you understand how to properly mix and store the medicine if using injections at home. If the cefuroxime injection is frozen when you receive it, thaw the medicine at room temperature (do not use heat). After thawing, you may store the cefuroxime injection at room temperature for up to 24 hours, or in a refrigerator for up to 7 days. Do not refreeze the medicine once it has been thawed. What happens if I miss a dose? Take the medicine as soon as you can, but skip the missed dose if it is almost time for your next dose. Do not use take doses at one time. Call your doctor for instructions if you miss a cefuroxime injection. What happens if I overdose? Seek emergency medical attention or call the Poison Help line at . Overdose symptoms may include seizure. What should I avoid while using cefuroxime? Antibiotic medicines can cause diarrhea. Tell your doctor if you have diarrhea that is watery or bloody. What are the possible side effects of cefuroxime? Get emergency medical help if you have signs of an allergic reaction (hives, difficult breathing, swelling in your face or throat) or a severe skin reaction (fever, sore throat, burning in your eyes, skin pain, red or purple skin rash that spreads and causes blistering and peeling). Call your doctor at once if you have: severe stomach pain, diarrhea that is watery or bloody (even if it occurs months after your last dose); jaundice (yellowing of the skin or eyes); fever, chills; a seizure; or chest pain. Common side effects may include: nausea, vomiting, diarrhea; flu-like symptoms; vaginal itching or discharge; or diaper rash (in people using the oral suspension). This is not a complete list of side effects and others may occur. Call your doctor for medical advice about side effects. You may report side effects to FDA at 6-779-AYG-3317. What other drugs will affect cefuroxime? Tell your doctor about all your other medicines, especially: any other IV antibiotic; probenecid; a diuretic or 'water pill'; a blood thinner--warfarin, Coumadin, Jantoven; or a stomach acid assistant city attorney--esomeprazole, famotidine, Nexium, Pepcid, Prevacid, Prilosec, Tagamet, Zantac, and others. This list is not complete. Other drugs may affect cefuroxime, including prescription and pyuc-ayk-ovwuibi medicines, vitamins, and herbal products. Not all possible drug interactions are listed here. Where can I get more information? Your pharmacist can provide more information about cefuroxime. Remember, keep this and all other medicines out of the reach of children, never share your medicines with others, and use this medication only for the indication prescribed. Every effort has been made to ensure that the information provided by [employer]') is accurate, up-to-date, and complete, but no guarantee is made to that effect. Drug information contained herein may be time sensitive. [employer] information has been compiled for use by healthcare practitioners and consumers in the [place] and therefore [employer] does not warrant that uses outside of the [place] are appropriate, unless specifically indicated otherwise. [employer] drug information does not endorse drugs, diagnose patients or recommend therapy. [employer] drug information is an informational resource designed to assist licensed healthcare practitioners in caring for their patients and/or to serve consumers viewing this service as a supplement to, and not a substitute for, the expertise, skill, knowledge and judgment of healthcare practitioners. The absence of a warning for a given drug or drug combination in no way should be construed to indicate that the drug or drug combination is safe, effective or appropriate for any given patient. [facility] does not assume any responsibility for any aspect of healthcare administered with the aid of information [employer] provides. The information contained herein is not intended to cover all possible uses, directions, precautions, warnings, drug interactions, allergic reactions, or adverse effects. If you have questions about the drugs you are taking, check with your doctor, nurse or pharmacist. Copyright 9289-2801 [facility] [employer]. Version: 06.24. Revision Date: 07/26/2021. Education Materials Strep Throat, Adult Strep throat is an infection of the throat. It is caused by germs (bacteria). Strep throat is common during the cold months of the year. It mostly affects children who are 5 15 years old. However, people of all ages can get it at any time of the year. When strep throat affects the tonsils, it is called tonsillitis. When it affects the back of the throat, it is called pharyngitis. This infection spreads from person to person through coughing, sneezing, or having close contact. What are the causes? This condition is caused by the Streptococcus pyogenes germ. What increases the risk? You are more likely to develop this condition if: You care for young children. Children are more likely to get strep throat and may spread it to others. You go to crowded places. Germs can spread easily in such places. You kiss or touch someone who has strep throat. What are the signs or symptoms? Symptoms of this condition include: Fever or chills. Redness, swelling, or pain in the tonsils or throat. Pain or trouble when swallowing. White or yellow spots on the tonsils or throat. Tender glands in the neck and under the jaw. Bad breath. Red rash all over the body. This is rare. How is this treated? This condition may be treated with: Medicines that kill germs (antibiotics). Medicines that treat pain or fever. These include: ? Ibuprofen or acetaminophen. ? Aspirin, only for patients who are over the age of 18. ? Throat lozenges. ? Throat sprays. Follow these instructions at home: Medicines Take lvml-dqy-fumprnd and prescription medicines only as told by your doctor. Take your antibiotic medicine as told by your doctor. Do not stop taking the antibiotic even if you start to feel better. Eating and drinking If you have trouble swallowing, eat soft foods until your throat feels better. Drink enough fluid to keep your pee (urine) pale yellow. To help with pain, you may have: ? Warm fluids, such as soup and tea. ? Cold fluids, such as frozen desserts or popsicles. General instructions Rinse your mouth (gargle) with a salt-water mixture 3 4 times a day or as needed. To make a salt-water mixture, dissolve 1 tsp (3 6 g) of salt in 1 cup (237 mL) of warm water. Rest as much as you can. Stay home from work or school until you have been taking antibiotics for 24 hours. Avoid smoking or being around people who smoke. Keep all follow-up visits as told by your doctor. This is important. How is this prevented? Do not share food, drinking cups, or personal items. They can cause the germs to spread. Wash your hands well with soap and water. Make sure that all people in your house wash their hands well. Have family members tested if they have a fever or a sore throat. They may need an antibiotic if they have strep throat. Contact a doctor if: You have swelling in your neck that keeps getting bigger. You get a rash, cough, or earache. You cough up a thick fluid that is green, yellow-brown, or bloody. You have pain that does not get better with medicine. Your symptoms get worse instead of getting better. You have a fever. Get help right away if: You vomit. You have a very bad headache. Your neck hurts or feels stiff. You have chest pain or are short of breath. You have drooling, very bad throat pain, or changes in your voice. Your neck is swollen, or the skin gets red and tender. Your mouth is dry, or you are peeing less than normal. You keep feeling more tired or have trouble waking up. Your joints are red or painful. Summary Strep throat is an infection of the throat. It is caused by germs (bacteria). This infection can spread from person to person through coughing, sneezing, or having close contact. Take your medicines, including antibiotics, as told by your doctor. Do not stop taking the antibiotic even if you start to feel better. To prevent the spread of germs, wash your hands well with soap and water. Have others do the same. Do not share food, drinking cups, or personal items. Get help right away if you have a bad headache, chest pain, shortness of breath, a stiff or painful neck, or you vomit. This information is not intended to replace advice given to you by your health care provider. Make sure you discuss any questions you have with your health care provider. Document Released: 02/26/2009 Document Revised: 11/28/2019 Document Reviewed: 11/28/2019 [employer] Patient Education 2020 VCV. Urinary Tract Infection, Adult A urinary tract infection (UTI) is an infection of any part of the urinary tract. The urinary tract includes: The kidneys. The ureters. The bladder. The urethra. These organs make, store, and get rid of pee (urine) in the body. What are the causes? This is caused by germs (bacteria) in your genital area. These germs grow and cause swelling (inflammation) of your urinary tract. What increases the risk? You are more likely to develop this condition if: You have a small, thin tube (catheter) to drain pee. You cannot control when you pee or poop (incontinence). You are female, and: ? You use these methods to prevent : ? A medicine that kills sperm (spermicide). ? A device that blocks sperm (diaphragm). ? You have low levels of a female hormone (estrogen). ? You are . You have genes that add to your risk. You are sexually active. You take antibiotic medicines. You have trouble peeing because of: ? A prostate that is bigger than normal, if you are male. ? A blockage in the part of your body that drains pee from the bladder (urethra). ? A kidney stone. ? A nerve condition that affects your bladder (neurogenic bladder). ? Not getting enough to drink. ? Not peeing often enough. You have other conditions, such as: ? Diabetes. ? A weak disease-fighting system (immune system). ? Sickle cell disease. ? Gout. ? Injury of the spine. What are the signs or symptoms? Symptoms of this condition include: Needing to pee right away (urgently). Peeing often. Peeing small amounts often. Pain or burning when peeing. Blood in the pee. Pee that smells bad or not like normal. Trouble peeing. Pee that is cloudy. Fluid coming from the vagina, if you are female. Pain in the belly or lower back. Other symptoms include: Throwing up (vomiting). No urge to eat. Feeling mixed up (confused). Being tired and grouchy (irritable). A fever. Watery poop (diarrhea). How is this treated? This condition may be treated with: Antibiotic medicine. Other medicines. Drinking enough water. Follow these instructions at home: Medicines Take gwsf-sfz-eljbdjr and prescription medicines only as told by your doctor. If you were prescribed an antibiotic medicine, take it as told by your doctor. Do not stop taking it even if you start to feel better. General instructions Make sure you: ? Pee until your bladder is empty. ? Do not hold pee for a long time. ? Empty your bladder after sex. ? Wipe from front to back after pooping if you are a female. Use each tissue one time when you wipe. Drink enough fluid to keep your pee pale yellow. Keep all follow-up visits as told by your doctor. This is important. Contact a doctor if: You do not get better after 1 2 days. Your symptoms go away and then come back. Get help right away if: You have very bad back pain. You have very bad pain in your lower belly. You have a fever. You are sick to your stomach (nauseous). You are throwing up. Summary A urinary tract infection (UTI) is an infection of any part of the urinary tract. This condition is caused by germs in your genital area. There are many risk factors for a UTI. These include having a small, thin tube to drain pee and not being able to control when you pee or poop. Treatment includes antibiotic medicines for germs. Drink enough fluid to keep your pee pale yellow. This information is not intended to replace advice given to you by your health care provider. Make sure you discuss any questions you have with your health care provider. Document Released: 02/26/2009 Document Revised: 08/28/2019 Document Reviewed: 03/20/2019 [employer] Patient Education 2020 VCV. Additional Information VACCINATE! IT SAVES LIVES! Members of the community who have not yet received the COVID-19 vaccine and would like to receive it can visit one of [facility] vaccine clinics. There are many vaccine clinic locations within the [facility]. For locations and available times, please visit [email or web address].pai o.gov/. It is important to note that some COVID mobile vaccine clinics are held outdoors and may be canceled in rainy or stormy conditions. To learn more about pediatric vaccinations (ages 5-11), we invite you to visit the [employer]s webpage. https://www.[employer].org/pag es/3488-Ujgld-Uyaewuyyqlm-Frequent pc-Fodrk-Dozgtzvxr.html To learn more about the COVID-19 vaccine, we invite you to visit the CDC website for a list of frequently asked questions.https://www.cdc.gov/rafi navirus/2019-ncov/vaccines/faq.htm l [facility] Patient Portal Access Instructions: Stay connected with your healthcare team and access your personal medical information anytime with the [facility] Patient Portal. Please follow the directions below to create your [facility] account: 1.Access the email account you provided upon registration to the hospital/physician office.2.Look for an invitation email from [facility].3.Open the email and access the invitation link: Accept Invitation to [facility].4.Fill in the required milton to create your account. To access your account, visit [email or web address]. Click the blue button labeled Access Patient Portal and then log in with the username and password that you created in the steps above. You will be able to view your test results, lab results, a summary of your visits, upcoming appointments and more. There is also a convenient messaging option where you can send secure messages to your provider. In addition, you will have the ability to download any documents or summaries to your computer and/or send the information securely to a physician. Remember that your healthcare information is confidential, so carefully consider who you will allow to register on the [facility] Patient Portal for access to your information. You can also access the [facility] Patient Portal on the [facility]. Simply click on Patient Portal and then log into your account. If you would like to receive a full copy of your medical records, please contact the [facility] Medical Records Department by calling [phone], Sunday through Sunday between 8 a.m. and 4:30 p.m. HOW TO SAFELY DISPOSE OF PRESCRIPTION MEDICATIONS Please use one of the following methods to safely dispose of your unused medications. 1.Use a drug disposal kit: the drug disposal pouch allows you to safely discard your old and unused drugs. Ask your nurse to give you one when you are discharged.2.Visit a local take-back location: Many local pharmacies and police departments have programs that collect old and unwanted prescription drugs. Call your local pharmacy or go to http://[employer].Post-A-Vox/4S1Hk9t to find one close to you.3.Make use of household items: Use cat litter or old coffee grounds to dispose medications if other options are not available. Mix your drugs with these household products, seal them in an airtight container and throw it into the garbage. Call [facility]: [phone] to be sure your drugs can be disposed of in this way. Some medicines may require a different approach.4.Never flush your medications down the toilet. IF YOU HAVE BEEN PRESCRIBED AN OPIOID FOR PAIN If you have been prescribed an opioid (such as hydrocodone, oxycodone or morphine), it is critical to understand the possible side effects and risks of opioid pain medications. Even when taken as directed, opioids can have several side effects including: Tolerance, meaning you might need to take more of a medication for the same pain relief. Nausea, vomiting and/or constipation. Sleepiness, dizziness, dry mouth, confusion, depression or itching. Physical dependence, meaning you have withdrawal symptoms when a medication is stopped, can develop within a few days. KNOW YOUR RESPONSIBILITIES It is important to know exactly how much and how often to take the opioid pain medications you are prescribed. Never take opioids in higher amounts or more often than prescribed. Do not combine opioids with alcohol or other drugs that cause drowsiness, such as benzodiazepines, also known as benzos, including diazepam and alprazolam, muscle relaxants or sleep aids. Never sell or share prescription opioids. This is illegal. Store opioids in a secure place and out of reach of others (including children, family, friends and visitors). The last page of this document has been signed and retained as a CHART COPY. Signatures Patient Education Materials Strep Throat, Adult, Oeyo-ru-Woel Urinary Tract Infection, Adult, Crzh-tn-Jsbd Medication Leaflets cefuroxime (oral/injection) My discharge plan and instructions have been reviewed and explained to me and I,BLAISE MONROE understand my current condition and have read and understand these discharge instructions. I have received a written copy of the plan/instructions. If I have questions, I am aware that I should contact my doctor. 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 Strep pharyngitis 2. Bacteriuria 3. Asthma 4. Factor 5 Leiden mutation, heterozygous 5. Type 2 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 Strep pharyngitis patient received dose of ceftriaxone in the emergency department. Bacteriuria ceftriaxone 1 g IV as noted above. Afebrile and hemodynamically stable. Asthma chest x-ray was negative. Lungs are clear. No wheezing. Oxygen saturation dropped a couple of times into the 80s. Patient was not taking very deep breaths. Encourage incentive spirometer. Factor V Leiden continue home dose of warfarin. Type 2 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- Glucose goal 180 or less and avoid hypoglycemia. Corrective sliding scale insulin. ADA diet. DVT prophylaxis: Warfarin Code Status: Full code Plan of care discussed with patient. All questions answered. Patient verbalizes understanding is agreeable to plan of care. This dictation was performed using voice recognition software and may include grammatical and/or spelling errors. [facility] 07-21-2025 Note Date of Service 04/13/2025 Chief Complaint Arrives from home with c /o headache, sore throat, bodyaches, dizziness and nausea X 2 days. 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 denies fevers History of Present Illness 69-year-old female with past medical history significant for hypertension, hyperlipidemia, factor VLeiden, asthma, type 2 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. Patient presented to [facility] emergency department 04/13/2025 with a 3- day history of headache, sore throat, cough. In the emergency department vital signs were stable with oxygen saturation of 97% on room air. There is a documented oxygen saturation of 82%. She was placed on 2 L via nasal cannula and improved to 97%. ER physician trialed patient on room air and indicated that she may be able to discharge home. When ER physician left the room patient's oxygen saturations dropped. She hasno leukocytosis. Urinalysis positive for nitrates and leukocyte esterase. Loaded WBCs and 4+ bacteria. CMP unremarkable. COVID/flu/RSV negative. Group A strep PCR positive. X-ray chest negative. Will nt was given a dose of ceftriaxone. I was called for possible admission. Upon walking into the patient's room her oxygen saturation was 93% on room air. I ambulated patientin the room with a portable pulse oximeter and oxygen saturation was 95% on room air. Helped patient back onto the cot. Oxygen saturation briefly dropped to 87 to 88%. She was breathing very shallow.When she took deep breaths her oxygen saturation improved to 98%. Decision was made to admit patient for observation to monitor oxygen saturations and work with respiratory therapy on incentive spirometer. On exam today, pt denies any fever or chills. No headache. Admits dizziness. Denies chest pain, palpitations. Admits cough, sore throat. Denies N/V/D/C. No melena/hematochezia. No dysuria or hematuria. No new paresthesias. Review of Systems See HPI for specific ROS. All other systems reviewed and negative. Physical Exam Vitals and Measurements T: 36.7 C (Oral) TMIN: 36.7 C (Oral) TMAX: 37.0 C (Oral) HR: 73 (Monitored) RR: 16 BP: 125/70 SpO2:94% HT: 160 cm WT: 104.2 kg BMI: 40.7 Weight Dosing Weight: 104.2 kg (04/13/25) Dosing Weight: 104.2 kg (04/13/25) GEN: Appears chronically ill EYES: No conjunctival erythema, drainage. EOMI EARS: Hearing grossly intact. NOSE: No nasal discharge. THROAT: Oral cavity and pharynx pink and moist. CHEST: Normal S1 and S2. Rhythm is regular. Clear to auscultation. No wheezing. ABD: Soft, nondistended, nontender. EXT: No significant deformity or joint abnormality. 1-2+ edema BLE. Peripheral pulses intact. NEURO: Sensation grossly intact SKIN: Skin color normal PSYCH: The mental examination revealed the patient was alert and oriented x 4 Lab Results 04/13 12:45 Protime: 25.5 H PT International Ratio: 2.2 04/13 06:37 WBC: 7.5 Hgb: 11.5 L Hct: 34.1 Platelet: 286 Neutrophil %: 67.3 Glucose Level: 138 H Sodium Level: 139 Potassium Level: 3.6 BUN: 14 Creatinine Lvl (s): 0.80 Imaging Results and Diagnostics XR Chest 1 View Result Date: April 13, 2025 Verified By: DONITA GOLDMAN MD CLINICAL STATEMENT: IMPRESSION: No acute findings. EKG EC04/13/25: Sinus rhythm Electronic Signature: CHENG ALLISON MD 04/13/2025 06:54:51 Assessment/Plan 1. Strep pharyngitis 2. Bacteriuria 3. Asthma 4. Factor 5 Leiden mutation, heterozygous 5. Type 2 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 Strep pharyngitis patient received dose of ceftriaxone in the emergency department. Bacteriuria ceftriaxone 1 g IV as noted above. Afebrile and hemodynamically stable. Asthma chest x-ray was negative. Lungs are clear. No wheezing. Oxygen saturation dropped a couple of times into the 80s. Patient was not taking very deep breaths. Encourage incentive spirometer. Factor V Leiden continue home dose of warfarin. Type 2 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- Glucose goal 180 or less and avoid hypoglycemia. Corrective sliding scaleinsulin. ADA diet. DVT prophylaxis: Warfarin Code Status: Full code Plan of care discussed with patient. All questions answered. Patient verbalizes understanding is agreeable to plan of care. This dictation was performed using voice recognition software and may include grammatical and/or spelling errors. Problem List/Past Medical History Ongoing Acute diastolic heart failure Asthma Asthma exacerbation Chronic constipation Diabetes mellitus type 2 Endometrial hyperplasia Factor 5 Leiden mutation, heterozygous Hyperlipidemia Hypertension Hypomagnesemia Pain in the abdomen Pneumonia Shortness of breath Sleep apnea UTI (urinary tract infection) Historical DVT Partial small bowel obstruction PE - Pulmonary embolism Procedure/Surgical History Sling procedure of bladder neck: 2014 Cholecystectomy: 1980 Appendectomy: 1967 Vaginal hysterectomy Total hip replacement bilateral Medications Home Medications (24) Active amLODIPine 5 mg oral tablet 5 mg = 1 tab(s), Oral, qDay busPIRone 5 mg oral tablet 5 mg = 1 tab(s), Oral, BID DULoxetine 60 mg oral delayed release capsule 60 mg = 1 cap(s), Oral, qDay Flint[place] Complete oral tablet, chewable 1 tab(s), Oral, qDay furosemide 20 mg oral tablet 20 mg = 1 tab(s), PRN, Oral, qDay hydroCHLOROthiazide 25 mg oral tablet 25 mg = 1 tab(s), Oral, qDay Lipitor 40 mg oral tablet 40 mg = 1 tab(s), Oral, qDay losartan 100 mg oral tablet 100 mg = 1 tab(s), Oral, Daily magnesium oxide 400 mg oral tablet 400 mg = 1 tab(s), Oral, qDay meclizine 25 mg oral tablet 25 mg = 1 tab(s), PRN, Oral, BID MetFORMIN (Eqv-Glucophage XR) 500 mg oral tablet, EXTENDED RELEASE 500 mg = 1 tab(s), Oral, BID mirtazapine 7.5 mg oral tablet 7.5 mg = 1 tab(s), Oral, qHS Neurontin 100 mg oral capsule 100 mg = 1 cap(s), Oral, TID Potassium Chloride (Eqv-K-Tab) 20 mEq oral tablet, extended release 20 mEq = 1 tab(s), Oral, BID PriLOSEC OTC 20 mg oral delayed release tablet 20 mg = 1 tab(s), Oral, BID rOPINIRole 3 mg oral tablet 9 mg = 3 tab(s), Oral, qHS Toviaz 8 mg oral tablet, extended release 8 mg = 1 tab(s), Oral, qAM traMADol 50 mg oral tablet 50 mg = 1 tab(s), Oral, q6h Ventolin HFA MDI (90 mcg/inh) inhalation aerosol 2 puff(s), PRN, Inhalation, q4h Vitamin B12 2 tab(s), Oral, qDay warfarin 2 mg oral tablet 2 mg = 1 tab(s), Oral, qDay warfarin 3 mg oral tablet 3 mg = 1 tab(s), Oral, Daily Wixela Inhub 250 mcg-50 mcg inhalation powder 1 puff(s), Inhalation, BID Zofran 8 mg oral tablet 8 mg = 1 tab(s), PRN, Oral, q8h Allergies Darvocet Tape rash Xarelto Zestril cough clindamycin rash, hives, welts metoprolol Social History Smoking Status - 11/15/2016 Never smoker Alcohol Use: Never. Previous treatment: None., 04/18/2022 Home/Environment Domestic Concerns: None. Living situation: Home/Independent. Primary Client Retention Specialist: self. Lives In: Single level home, 1st floor bedroom, 1st floor bathroom, 1st floor laundry. Current Home Treatments BiPAP, Blood glucose monitoring, Nebulizer treatments. Professional Skilled Services or Special Community Resources None. Marital Status: ., 11/14/2019 Nutrition/Health Type of diet: Regular. Appetite Good. Eating Difficulties None., 10/30/2019 Substance Abuse Use: Never., 10/30/2019 Tobacco Nicotine Use: Never (less than 100 in lifetime)., 04/13/2025 Family History Alzheimer disease: Mother. Cancer: Sister. Diabetes mellitus: Father, Sister and Sister. Heart failure: Father. Protein S deficiency 22-Mar-2016 02:37:05<$>: Sister and Sister. Health Status Family Member(s) Immunizations pneumococcal 13-valent conjugate vaccine: 0.5 unknown unit (09/01/20) pneumococcal 23-valent vaccine(Pneumovax: 0.5 unknown unit (09/08/22) SARS-CoV-2 (COVID-19) mRNA-1273 vaccine: 0.5 unknown unit (01/27/21) SARS-CoV-2 (COVID-19) mRNA-1273 vaccine: 0.5 unknown unit (12/30/20) tetanus/diphtheria/pertussMUL.ORD![id number]: 0.5 unknown unit (06/04/17) tetanus/diphtheria/pertussMUL.ORD![id number]: 0 unknown unit (05/22/13) Code Status Code Status - Ordered -- 04/13/25 9:05:00 EDT, Full Code, Constant Order Digitally Signed by ARNOLDO WASHBURN on 04/13/2025 03:36 PM Digitally Signed by POLO GALVEZ DO on 04/13/2025 04:50 PM [facility]07-21-2025 Note* Exam Date Time Procedure Performing Provider Status 04/13/25 6:54 AM XR Chest 1 View DONITA GOLDMAN MD; Aut h (Verified) [id number] ORIGINAL EXAMINATION: ONE XRAY VIEW OF THE CHEST04/13/2025 6:55 am CHEST ONE VIEW AP/PA COMPARISON: None HISTORY: ORDERING SYSTEM PROVIDED HISTORY: Reason for Exam: SOB/cough/fever FINDINGS: The cardiomediastinal silhouette is normal in appearance. No consolidation, pleural effusion, or vascular congestion is seen. The osseous structures are intact. IMPRESSION: No acute findings. Interpreted by: Donita Goldman MD Preliminary Report By: Donita Goldman MD Electronically signed By Donita Goldman MD Dictated Date: 04/13/2025 7:10:31 AM Prelim Date: 04/13/2025 7:10:47 AM Sign Date: 04/13/2025 7:10:47 AM Ordering Provider: CHENG ALLISON [facility]07-21-2025 Note* Exam Date Time Procedure Performing Provider Status 04/13/25 6:48 AM EKG [ED AOH] - CV CHENG ALLISON MD; Auth (Verified) ECG Final Report Sinus rhythm Electronic Signature: CHENG ALLISON MD 04/13/2025 06:54:51 [facility]02-13-2025 Note. MICRO - Microbiology PROCEDURE: Blood Culture (bacterial) [*1] SOURCE: Blood BODY SITE: COLLECTED DATE/TIME: 11/01/2024 02:48 EST RECEIVED DATE/TIME: 11/01/2024 10:30 EST START DATE/TIME: 11/01/2024 10:30 EST FREE TEXT SOURCE: FINAL REPORTS Final Report [] Verified Date/Time/Personnel: 11/06/2024 10:59 EST Blood Culture: No Growth at 5 days. PRELIMINARY REPORTS Preliminary Report [] Verified Date/Time/Personnel: 11/01/2024 11:59 EST Culture has been received in lab and is no growth to date. Routine cultures are held for 5 days. Performing Locations *1: This test was performed at: [address]02-13-2025 Note. MICRO - Microbiology PROCEDURE: Blood Culture (bacterial) [*1] SOURCE: Blood BODY SITE: COLLECTED DATE/TIME: 11/01/2024 02:48 EST RECEIVED DATE/TIME: 11/01/2024 10:30 EST START DATE/TIME: 11/01/2024 10:30 EST FREE TEXT SOURCE: FINAL REPORTS Final Report [] Verified Date/Time/Personnel: 11/06/2024 10:59 EST Blood Culture: No Growth at 5 days. PRELIMINARY REPORTS Preliminary Report [] Verified Date/Time/Personnel: 11/01/2024 11:59 EST Culture has been received in lab and is no growth to date. Routine cultures are held for 5 days. Performing Locations *1: This test was performed at: [address]02-10-2025 Note. MICRO - Microbiology PROCEDURE: Urine Culture [O1 *1] SOURCE: Urine BODY SITE: COLLECTED DATE/TIME: 11/01/2024 01:57 EST RECEIVED DATE/TIME: 11/01/2024 16:49 EST START DATE/TIME: 11/01/2024 16:49 EST FREE TEXT SOURCE: FINAL REPORTS Final Report [] Verified Date/Time/Personnel: 11/03/2024 07:21 EST >100,000 cfu/ml Multiple bacterial morphotypes present. Probable Contamination. Suggest recollection if clinically indicated. PRELIMINARY REPORTS Preliminary Report [] Verified Date/Time/Personnel: 11/02/2024 08:27 EST Culture results pending. Order Comments O1: Urine Culture Added by Discern Performing Locations *1: This test was performed at: [facility], [address] [place] [address], [id number] , [facility]02-08-2025 Evaluation + Plan note Diagnostic Tests Pending * Urine Culture 11/01/24 [facility] 02-08-2025 Hospital Discharge instructions Patient Education 11/01/2024 02:45:53 Bladder Infection, Female (Adult) Bladder Infection, Female (Adult) Urine is normally doesn't have any bacteria in it. But bacteria can get into the urinary tract fromthe skin around the rectum. Or they can travel in the blood from elsewhere in the body. Once they are in your urinary tract, they can cause infection in the urethra (urethritis), the bladder (cystitis), or the kidneys (pyelonephritis). The most common place for an infection is in the bladder. This is called a bladder infection. This is one of the most common infections in women. Most bladder infections are easily treated. They are not serious unless the infection spreads to the kidney. The phrases bladder infection, UTI, and cystitis are often used to describe the same thing. But they are not always the same. Cystitis is an inflammation of the bladder. The most common cause of cystitis is an infection. Symptoms The infection causes inflammation in the urethra and bladder. This causes many of the symptoms. Themost common symptoms of a bladder infection are: Pain or burning when urinating Having to urinate more often than usual Urgent need to urinate Only a small amount of urine comes out Blood in urine Abdominal discomfort. This is usually in the lower abdomen above the pubic bone. Cloudy urine Strong- or bad-smelling urine Unable to urinate (urinary retention) Unable to hold urine in (urinary incontinence) Fever Loss of appetite Confusion (in older adults) Causes Bladder infections are not contagious. You can't get one from someone else, from a toilet seat, or from sharing a bath. The most common cause of bladder infections is bacteria from the bowels. The bacteria get onto the skin around the opening of the urethra. From there, they can get into the urine and travel up to thebladder, causing inflammation and infection. This usually happens because of: Wiping improperly after urinating. Always wipe from front to back. Bowel incontinence Procedures such as having a catheter inserted Older age Not emptying your bladder. This can allow bacteria a chance to grow in your urine. Dehydration Constipation Sex Use of a diaphragm for control Treatment Bladder infections are diagnosed by a urine test. They are treated with antibiotics and usually clear up quickly without complications. Treatment helps prevent a more serious kidney infection. Medicines Medicines can help in the treatment of a bladder infection: Take antibiotics until they are used up, even if you feel better. It is important to finish them tomake sure the infection has cleared. You can use acetaminophen or ibuprofen for pain, fever, or discomfort, unless another medicine was prescribed. If you have chronic liver or kidney disease, talk with your healthcare provider before using these medicines. Also talk with your provider if you've ever had a stomach ulcer or gastrointestinal bleeding, or are taking blood-thinner medicines. If you are given phenazopydridine to reduce burning with urination, it will cause your urine to become a bright orange color. This can stain clothing. Care and prevention These self-care steps can help prevent future infections: Drink plenty of fluids to prevent dehydration and flush out your bladder. Do this unless you must restrict fluids for other health reasons, or your doctor told you not to. Proper cleaning after going to the bathroom is important. Wipe from front to back after using the toilet to prevent the spread of bacteria. Urinate more often. Don't try to hold urine in for a long time. Wear loose-fitting clothes and cotton underwear. Avoid tight-fitting pants. Improve your diet and prevent constipation. Eat more fresh fruit and vegetables, and fiber, and less junk and fatty foods. Avoid sex until your symptoms are gone. Avoid caffeine, alcohol, and spicy foods. These can irritate your bladder. Urinate right after intercourse to flush out your bladder. If you use control pills and have frequent bladder infections, discuss it with your doctor. Follow-up care Call your healthcare provider if all symptoms are not gone after 3 days of treatment. This is especially important if you have repeat infections. If a culture was done, you will be told if your treatment needs to be changed. If directed, you cancall to find out the results. If X-rays were done, you will be told if the results will affect your treatment. Call 911 Call 911 if any of the following occur: Trouble breathing Hard to wake up or confusion Fainting or loss of consciousness Rapid heart rate When to seek medical advice Call your healthcare provider right away if any of these occur: Fever of 100.4 F (38.0 C) or higher, or as directed by your healthcare provider Symptoms are not better by the third day of treatment Back or belly (abdominal) pain that gets worse Repeated vomiting, or unable to keep medicine down Weakness or dizziness Vaginal discharge Pain, redness, or swelling in the outer vaginal area (labia) 4416-[address] [employer]. [address] [place] [address]. All rights reserved. This information is not intended as a substitute for professional medical care. Always follow yourhealthcare professional's instructions. 11/01/2024 02:45:40 Dizziness, Uncertain Cause Dizziness (Uncertain Cause) Dizziness is a common symptom. It may be described as lightheadedness, spinning, or feeling like you are going to faint. Dizziness can have many causes. Be sure to tell the healthcare provider about: All medicines you take, including prescription, [id number]-[id number], herbs, and supplements Any other symptoms you have Any health problems you are being treated for Any past major health problems you've had, such as a heart attack, balance issues, hearing problems, or blood pressure problems Anything that causes the dizziness to get worse or better Today's exam did not show an exact cause for your dizziness. Other tests may be needed. Follow up with your healthcare provider. Home care Dizziness that occurs with sudden standing may be a sign of mild dehydration. Drink extra fluids for the next few days. If you recently started a new medicine, stopped a medicine, or had the dose of a current medicine changed, talk with the prescribing healthcare provider. Your medicine plan may need adjustment. If dizziness lasts more than a few seconds, sit or lie down until it passes. This may help prevent injury in case you pass out. Get up slowly when you feel better. Don't drive or use power tools or dangerous equipment until you have had no dizziness for at least 48 hours. Follow-up care Follow up with your healthcare provider for further evaluation within the next 7 days or as advised. When to seek medical advice Call your healthcare provider for any of the following: Worsening of symptoms or new symptoms Passing out or seizure Repeated vomiting Headache Palpitations (the sense that your heart is fluttering or beating fast or hard) Shortness of breath Blood in vomit or stool (black or red color) Weakness of an arm or leg or 1 side of the face Vision or hearing changes Trouble walking or speaking Chest, arm, neck, back, or jaw pain [id number] [employer] [place] [address]. All rights reserved. This information is not intended as a substitute for professional medical care. Always follow yourhealthcare professional's instructions. 11/01/2024 02:45:23 Coping with Heart Failure Coping with Heart Failure It s normal to feel sad or down at times when you re living with heart failure. Some medicines can also affect your mood. Following your treatment plan may seem difficult at times. If you feel overwhelmed, just focus on one day at a time. Don t be afraid to ask others for help when you need it. Ways to feel better Try not to withdraw from family and friends, even if you are finding it hard to talk to them. They can still be a good source of support. To feel better, you can also: Spend time doing things you enjoy. This may include participating in a favorite hobby, meditating, praying, or spending time with people you care about. Find activities that make you happy and make those a priority. Share what you learn about heart failure with the people in your life. Invite family members along when you visit your healthcare provider. This will help you feel supported as well as help you discuss the care plan you've agreed upon with your doctor. Think about joining a support group for people with heart failure. It may be easier to talk to people who know firsthand what you re going through. They can offer advice and share stories. You may want to ask loved ones to join you for a meeting. Asking for help Having heart failure doesn t mean that you have to feel bad all the time. Consider talking to your healthcare provider or a therapist if: You feel worthless or helpless, or are thinking about suicide. These are warning signs of depression. Treatment can help you feel better. When depression is under control, your overall health may also improve. You feel anxious about what will happen to your loved ones if your health gets worse. Taking care of legal arrangements, such as a living will and durable power of contracts attorney, can help you feel more secure about the future. Social support helps alleviate stress and helps your stick with your healthy lifestyle changes. Without social support, you may end up back in the hospital. [id number] [employer]. [address] [place] [address], [place] [address]. All rights reserved. This information is not intended as a substitute for professional medical care. Always follow yourhealthcare professional's instructions. Follow Up Care 11/01/2024 01:22:17 With:ELISSA DIAL DO Address: [facility] [place] [address]- When:2-4 days [facility] 02-08-2025 Emergency department Discharge summary Discharge Instructions Thank you for allowing [facility] to assist you with your healthcare needs. The following is importantdischarge information regarding your hospital visit. What to Do Next Instructions from Your Care Team No qualifying data available. Post Acute Orders No qualifying data available. You Need to Schedule the Following Appointments Follow Up with ELISSA DIAL DO When:Within 2-4 days Where:[facility] [address]AM[place] [place], [place] [id number]- Allergies Darvocet Tape Xarelto Zestril Hives clindamycin metoprolol Hives Medications Please ask your primary doctor or pharmacist before taking any other medication not listed, including over the counter drugs, herbal medications, vitamins and or supplements as they may interact withyour home medications. What How Much When Instructions Last Dose New cephalexin (cephalexin 500 mg oral capsule) 1 cap by mouth Every 8 hours Printed Prescription New furosemide (Lasix 20 mg oral tablet) 1 tab(s) by mouth Once a day Printed Prescription Unchanged albuterol (Ventolin HFA MDI (90 mcg/ inh) inhalation aerosol) 2 puff(s) by inhalation Every 4 hours as needed for as needed for wheezing Unchanged atorvastatin (Lipitor 40 mg oral tablet) 1 tab(s) by mouth Once a day Unchanged cyanocobalamin (Vitamin B12) 2 tab(s) by mouth Once a day Unsure of dose Unchanged fenofibrate (fenofibrate 160 mg oral tablet) 1 tab(s) by mouth Once a day (in the evening) Unchanged fesoterodine (Toviaz 8 mg oral tablet, extended release) 1 tab(s) by mouth Once a day (in the morning) 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 Unchanged fluticasone-salmeterol (Wixela Inhub 250 mcg-50 mcg inhalation powder) 1 puff(s) by inhalation Two (2) times a day Unchanged gabapentin (Neurontin 100 mg oral capsule) 1 cap by mouth Three (3) times a day Unchanged glipiZIDE (glipiZIDE 5 mg oral tablet) 1 tab(s) by mouth Once a day before a meal Unchanged losartan (losartan 25 mg oral tablet) 1 tab(s) by mouth Once a day Unchanged magnesium oxide (magnesium oxide 400 mg oral tablet) 1 tab(s) by mouth Once a day Unchanged meclizine (meclizine 25 mg oral tablet) 1 tab(s) by mouth Two (2) times a day as needed for as needed for dizziness Unchanged metFORMIN (metFORMIN 500 mg oral tablet (IR)) 1 tab(s) by mouth Two (2) times a day Unchanged multivitamin with minerals (Flintstones Complete oral tablet, chewable) 1 tab(s) by mouth Once a day Unchanged omeprazole (PriLOSEC OTC 20 mg oral delayed release tablet) 1 tab(s) by mouth Two (2) times a day Unchanged ondansetron (Zofran 8 mg oral tablet) 1 tab(s) by mouth Every 8 hours as needed for Nausea/Vomiting Unchanged potassium chloride (Potassium Chloride (Eqv-K-Tab) 20 mEq oral tablet, extended release) 1 tab(s) by mouth Two (2) times a day Take with food. Unchanged rOPINIRole (rOPINIRole 3 mg oral tablet) 3 tab(s) by mouth Daily at bedtime Unchanged semaglutide (Ozempic 2 mg/ 3 mL (0.25 mg or 0.5 mg dose) subcutaneous solution) 0.25 Milligram Subcutaneous Every week rotate injection sites Unchanged sertraline (Zoloft 100 mg oral tablet) 2 tab(s) by mouth Once a day (in the morning) Unchanged traMADol (traMADol 50 mg oral tablet) 1 tab(s) by mouth Every 6 hours as needed for for pain Unchanged warfarin (warfarin 2 mg oral tablet) 1 tab(s) by mouth Once a day Unchanged warfarin (warfarin 3 mg oral tablet) 1 tab(s) by mouth Every day Please take this list to your next doctor s visit. Bring all medications you take, including over the counter medications, herbals and other supplements with you to your doctor s visit. Patients and families are reminded to discard old lists and to update any records with all medication providers or retail pharmacies. Education Materials Bladder Infection, Female (Adult) Urine is normally doesn't have any bacteria in it. But bacteria can get into the urinary tract fromthe skin around the rectum. Or they can travel in the blood from elsewhere in the body. Once they are in your urinary tract, they can cause infection in the urethra (urethritis), the bladder (cystitis), or the kidneys (pyelonephritis). The most common place for an infection is in the bladder. This is called a bladder infection. This is one of the most common infections in women. Most bladder infections are easily treated. They are not serious unless the infection spreads to the kidney. The phrases bladder infection, UTI, and cystitis are often used to describe the same thing. But they are not always the same. Cystitis is an inflammation of the bladder. The most common cause of cystitis is an infection. Symptoms The infection causes inflammation in the urethra and bladder. This causes many of the symptoms. Themost common symptoms of a bladder infection are: Pain or burning when urinating Having to urinate more often than usual Urgent need to urinate Only a small amount of urine comes out Blood in urine Abdominal discomfort. This is usually in the lower abdomen above the pubic bone. Cloudy urine Strong- or bad-smelling urine Unable to urinate (urinary retention) Unable to hold urine in (urinary incontinence) Fever Loss of appetite Confusion (in older adults) Causes Bladder infections are not contagious. You can't get one from someone else, from a toilet seat, or from sharing a bath. The most common cause of bladder infections is bacteria from the bowels. The bacteria get onto the skin around the opening of the urethra. From there, they can get into the urine and travel up to thebladder, causing inflammation and infection. This usually happens because of: Wiping improperly after urinating. Always wipe from front to back. Bowel incontinence Procedures such as having a catheter inserted Older age Not emptying your bladder. This can allow bacteria a chance to grow in your urine. Dehydration Constipation Sex Use of a diaphragm for control Treatment Bladder infections are diagnosed by a urine test. They are treated with antibiotics and usually clear up quickly without complications. Treatment helps prevent a more serious kidney infection. Medicines Medicines can help in the treatment of a bladder infection: Take antibiotics until they are used up, even if you feel better. It is important to finish them tomake sure the infection has cleared. You can use acetaminophen or ibuprofen for pain, fever, or discomfort, unless another medicine was prescribed. If you have chronic liver or kidney disease, talk with your healthcare provider before using these medicines. Also talk with your provider if you've ever had a stomach ulcer or gastrointestinal bleeding, or are taking blood-thinner medicines. If you are given phenazopydridine to reduce burning with urination, it will cause your urine to become a bright orange color. This can stain clothing. Care and prevention These self-care steps can help prevent future infections: Drink plenty of fluids to prevent dehydration and flush out your bladder. Do this unless you must restrict fluids for other health reasons, or your doctor told you not to. Proper cleaning after going to the bathroom is important. Wipe from front to back after using the toilet to prevent the spread of bacteria. Urinate more often. Don't try to hold urine in for a long time. Wear loose-fitting clothes and cotton underwear. Avoid tight-fitting pants. Improve your diet and prevent constipation. Eat more fresh fruit and vegetables, and fiber, and less junk and fatty foods. Avoid sex until your symptoms are gone. Avoid caffeine, alcohol, and spicy foods. These can irritate your bladder. Urinate right after intercourse to flush out your bladder. If you use control pills and have frequent bladder infections, discuss it with your doctor. Follow-up care Call your healthcare provider if all symptoms are not gone after 3 days of treatment. This is especially important if you have repeat infections. If a culture was done, you will be told if your treatment needs to be changed. If directed, you cancall to find out the results. If X-rays were done, you will be told if the results will affect your treatment. Call 911 Call 911 if any of the following occur: Trouble breathing Hard to wake up or confusion Fainting or loss of consciousness Rapid heart rate When to seek medical advice Call your healthcare provider right away if any of these occur: Fever of 100.4 F (38.0 C) or higher, or as directed by your healthcare provider Symptoms are not better by the third day of treatment Back or belly (abdominal) pain that gets worse Repeated vomiting, or unable to keep medicine down Weakness or dizziness Vaginal discharge Pain, redness, or swelling in the outer vaginal area (labia) 0601-[address] [employer] [place] [address]. All rights reserved. This information is not intended as a substitute for professional medical care. Always follow yourhealthcare professional's instructions. Dizziness (Uncertain Cause) Dizziness is a common symptom. It may be described as lightheadedness, spinning, or feeling like you are going to faint. Dizziness can have many causes. Be sure to tell the healthcare provider about: All medicines you take, including prescription, [id number]-[id number], herbs, and supplements Any other symptoms you have Any health problems you are being treated for Any past major health problems you've had, such as a heart attack, balance issues, hearing problems, or blood pressure problems Anything that causes the dizziness to get worse or better Today's exam did not show an exact cause for your dizziness. Other tests may be needed. Follow up with your healthcare provider. Home care Dizziness that occurs with sudden standing may be a sign of mild dehydration. Drink extra fluids for the next few days. If you recently started a new medicine, stopped a medicine, or had the dose of a current medicine changed, talk with the prescribing healthcare provider. Your medicine plan may need adjustment. If dizziness lasts more than a few seconds, sit or lie down until it passes. This may help prevent injury in case you pass out. Get up slowly when you feel better. Don't drive or use power tools or dangerous equipment until you have had no dizziness for at least 48 hours. Follow-up care Follow up with your healthcare provider for further evaluation within the next 7 days or as advised. When to seek medical advice Call your healthcare provider for any of the following: Worsening of symptoms or new symptoms Passing out or seizure Repeated vomiting Headache Palpitations (the sense that your heart is fluttering or beating fast or hard) Shortness of breath Blood in vomit or stool (black or red color) Weakness of an arm or leg or 1 side of the face Vision or hearing changes Trouble walking or speaking Chest, arm, neck, back, or jaw pain [id number] [employer] [place] [address]. All rights reserved. This information is not intended as a substitute for professional medical care. Always follow yourhealthcare professional's instructions. Coping with Heart Failure It s normal to feel sad or down at times when you re living with heart failure. Some medicines can also affect your mood. Following your treatment plan may seem difficult at times. If you feel overwhelmed, just focus on one day at a time. Don t be afraid to ask others for help when you need it. Ways to feel better Try not to withdraw from family and friends, even if you are finding it hard to talk to them. They can still be a good source of support. To feel better, you can also: Spend time doing things you enjoy. This may include participating in a favorite hobby, meditating, praying, or spending time with people you care about. Find activities that make you happy and make those a priority. Share what you learn about heart failure with the people in your life. Invite family members along when you visit your healthcare provider. This will help you feel supported as well as help you discuss the care plan you've agreed upon with your doctor. Think about joining a support group for people with heart failure. It may be easier to talk to people who know firsthand what you re going through. They can offer advice and share stories. You may want to ask loved ones to join you for a meeting. Asking for help Having heart failure doesn t mean that you have to feel bad all the time. Consider talking to your healthcare provider or a therapist if: You feel worthless or helpless, or are thinking about suicide. These are warning signs of depression. Treatment can help you feel better. When depression is under control, your overall health may also improve. You feel anxious about what will happen to your loved ones if your health gets worse. Taking care of legal arrangements, such as a living will and durable power of contracts attorney, can help you feel more secure about the future. Social support helps alleviate stress and helps your stick with your healthy lifestyle changes. Without social support, you may end up back in the hospital. [id number] [employer]. [address] [place] [address], [place] [address]. All rights reserved. This information is not intended as a substitute for professional medical care. Always follow yourhealthcare professional's instructions. Additional Information VACCINATE! IT SAVES LIVES! Members of the community who have not yet received the COVID-19 vaccine and would like to receive it can visit one of [facility] vaccine clinics. There are many vaccine clinic locations within the [facility]. For locations and available times, please visit www.gettheshot.coronavirus.[place].gov/. It is important to note that some COVID mobile vaccine clinics are held outdoors and may be canceled in rainy or stormy conditions. To learn more about pediatric vaccinations (ages 5-11), we invite you to visit the [facility] webpage. https://www.[email or web address].org/pages/[email or web address]-Jotab-Frxamxaoghe-Uioiwmyhpe-Oajvi-Bjq stions.htmlTo learn more about the COVID-19 vaccine, we invite you to visit the CDC website for a list of frequently asked questions. https://www.cdc.gov/coronavirus/2019-ncov/vaccines/faq.html [facility] Patient Portal Access Instructions: Stay connected with your healthcare team and access your personal medical information anytime with the [facility] Patient Portal. If you would like a full copy of your medical records please contact the [facility] Medical Records Department Sunday through Sunday between 8a.m. and 4:30p.m. Please follow the directions below to access the portal: 1.Access the email account you provided upon registration to the hospital.2.Look for an invitation email from [facility].3.Open the email and access the invitation link: Accept Invitation to [facility]4.Fill in the required milton to create your account. Sign into [email or web address] with your username and password that you created in the above steps to stay up to date. You can then view a summary of results, a summary of your visits, and the ability to download your summaries to your computer or send the information securely to a physician. Remember that your healthcare information is confidential, so carefully consider who you will allow to register on the [facility] Patient Portal for access to your information. You can also access the [facility] Patient Portal on the [employer]bert. Simply click on Health Records under [employer] and then click on the [employer] logo. HOW TO SAFELY DISPOSE OF PRESCRIPTION MEDICATIONS Please use one of the following methods to safely dispose of your unused medications. 1.Use a drug disposal kit: the drug disposal pouch allows you to safely discard your old and unuseddrugs. Ask your nurse to give you one when you are discharged.2.Visit a local take-back location: Many local pharmacies and police departments have programs that collect old and unwanted prescriptiondrugs. Call your local pharmacy or go to http://[employer].Post-A-Vox/7N6Lp3y to find one close to you.3.Make use of household items: Use cat litter or old coffee grounds to dispose medications if other options arenot available. Mix your drugs with these household products, seal them in an airtight container andthrow it into the garbage. Call [facility]: [phone] to be sure your drugs can be disposed of in this way. Some medicines may require a different approach.4.Never flush your medications down the toilet. IF YOU HAVE BEEN PRESCRIBED AN OPIOIDS FOR PAIN If you have been prescribed an opioid (such as hydrocodone, oxycodone or morphine), it is critical to understand the possible side effects and risks of opioid pain medications. Even when taken as directed, opioids can have several side effects including: Tolerance, meaning you might need to take more of a medication for the same pain relief. Nausea, vomiting and/or constipation. Sleepiness, dizziness, dry mouth, confusion, depression or itching. Physical dependence, meaning you have withdrawal symptoms when a medication is stopped ? this can develop within a few days. KNOW YOUR RESPONSIBILITIES It is important to know exactly how much and how often to take the opioid pain medications you are prescribed. Never take opioids in higher amounts or more often than prescribed. Do not combine opioids with alcohol or other drugs that cause drowsiness, such as benzodiazepines, also known as benzos,including diazepam and alprazolam, muscle relaxants or sleep aids. Never sell or share prescriptionopioids. This is illegal. Store opioids in a secure place and out of reach of others (including children, family, friends and visitors). The last page(s) of this document has been signed and retained as a CHART COPY Signatures Patient Education Materials Bladder Infection, Female (Adult) Dizziness, Uncertain Cause Coping with Heart Failure Medication Leaflets My discharge plan and instructions have been reviewed and explained to me and I,BLAISE MONROE understand my current condition and have read and understand these discharge instructions. I have received a written copy of the plan/instructions. If I have questions, I am aware that I should contact my doctor. 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 Automated exposure control, iterative reconstruction, and/or weight based adjustment of the mA/kV was utilized to reduce the radiation dose to as low as reasonably achievable. COMPARISON: 04/09/2022 HISTORY: ORDERING SYSTEM PROVIDED HISTORY: Reason for Exam: pt states she has been having SOB, leg swelling and dizziness. pt states she ran out of her Lasix a week ago INJURY FINDINGS: BRAIN/VENTRICLES: There is no acute intracranial hemorrhage, mass effect or midline shift. No abnormal extra-axial fluid collection. The hathaway-white differentiation is maintained without evidence of an acute large vessel territorial infarct. There is no evidence of hydrocephalus. Scattered white matter hypodensities are nonspecific but statistically most consistent with mild chronic microvascular angiopathy. Mild age-related volume loss. Carotid siphon calcifications are present. ORBITS: The visualized portion of the orbits demonstrate no acute abnormality. SINUSES: The visualized paranasal sinuses and mastoid air cells demonstrate no acute abnormality. SOFT TISSUES/SKULL: No acute abnormality of the visualized skull or soft tissues. IMPRESSION: No acute intracranial abnormality. I have personally reviewed the images of this examination, and agree with the resident's findings and interpretation. Interpreted by: Abel Queen MD Preliminary Report By: Derek León Electronically signed By Abel Queen MD Dictated Date: 11/01/2024 2:34:17 AM Prelim Date: 11/01/2024 2:36:22 AM Sign Date: 11/01/2024 2:44:27 AM Ordering Provider: [facility]02-08-2025 Note* Exam Date Time Procedure Performing Provider Status 11/01/24 2:29 AM XR Chest 2 Views ABEL QUEEN MD; Auth (Verified) [id number] ORIGINAL EXAMINATION: TWO XRAY VIEWS OF THE CHEST 11/01/2024 2:30 am COMPARISON: 06/03/2023 HISTORY: ORDERING SYSTEM PROVIDED HISTORY: Reason for Exam: pt states she has been having SOB, leg swelling and dizziness. pt states she ran out of her Lasix a week ago Chest Pain FINDINGS: Stable cardiomediastinal silhouette. No focal consolidation, pleural effusion, or visible pneumothorax. Degenerative changes. Upper quadrant surgical clips. IMPRESSION: No acute radiographic abnormality. I have personally reviewed the images of this examination, and agree with the resident's findings and interpretation. Interpreted by: Abel Queen MD Preliminary Report By: Derek León Electronically signed By Abel Queen MD Dictated Date: 11/01/2024 2:31:28 AM Prelim Date: 11/01/2024 2:34:10 AM Sign Date: 11/01/2024 2:42:35 AM Ordering Provider: [facility]02-08-2025 Note* Exam Date Time Procedure Performing Provider Status 11/01/24 1:59 AM EKG [ED AO] - CV LENNY CESPEDES MD; Auth (Verified) ECG Final Report Sinus rhythm Atrial premature complex Low voltage, precordial leads Probable left ventricular hypertrophy Electronic Signature: LENNY CESPEDES MD 11/01/2024 02:42:17 [facility]10-11-2024 History of Present illness Narrative * Anne Swanson MA - 07/04/2024 11:40 AM EDT [facility] ROOMING NOTE POST WEIGHT LOSS SURGERY FOLLOW UP Patient: Blaise Monroe Service Date: 07/04/2024 Patient is 1 year(s) s/p Sleeve Gastrectomy Today's Metrics: Post-op Weight Metrics: (From Surgical Weight Loss Tracker) Patient has the following questions: None Reported Pain: Patient rates pain on scale 0-10 as: 0 Exercise Compliance: Exercising: no If yes: Type: 0 Times per week: 0 Min per session: 0 Falls Risk Assessment Patient does take medications which affect BP or mental status Patient does not t have newly prescribed or changed dosage of medications within past 30 days whichaffect BP or mental status Patient has not fallen in the past 2 months Patient does not t demonstrate unsteady gait Patient uses the following ambulatory assistive devices: cane Patient states the presence of the following traits which increases risk of fall: none Patient is not on home O2 Pre-op Weight Metrics: Labs Completed: no - If NO, patient instructed to get labs drawn today or ROSEY If YES: [facility]? N/A If yes see Labs Tab Labs completed at [facility] facility? N/A If yes see Encounters Tab - Orders only - Historical Provider - Date: Completed by: Anne Swanson MA * Mikayla Frazier MD - 07/04/2024 11:40 AM EDT [facility] POST-OP WEIGHT LOSS MANAGEMENT PROGRESS NOTE FOLLOW UP HPI, PHYSICAL EXAMINATION & PLAN HPI: Patient here today for follow up for weight loss management following surgical weight loss Weight trend since last visit: lost 1 lb over 3 m stable This patient's excess weight is causing the following co-morbid conditions at this time: DM Plan Physical Examination: Blood pressure (!) 158/80, pulse 88, height 5' 3 (1.6 m), weight 226 lb 12.8 oz (103 kg). General: This patient is alert and oriented X3 General: This patient is awake, alert, and oriented, and is in no apparent distress. Extremities: No cyanosis, clubbing or edema/ No calf tenderness/No restrictions of movement, is ambulatory without assistance. Neurological: Intact x 4 extremities, no focal deficits notes. Skin: No rashes or lesions noted. Social History: This patient is unaccompanied for the evaluation today. She does not smoke, and does not drink alcohol. Current Diet This patient s current diet is: off the meal plan and stress eating Her diet contains adequate amounts of protein, adequate amounts of healthy fats, adequate amounts of green, leafy vegetables, and adequate amounts of fruits. Her comfort foods include:sweets Current Activity Does not exercise Current Eating Behaviors This patients demonstrates the following behaviors as they relate to her eating:eats large portions, eats in response to stress, and eats in response to emotions She eats approximately 3-4 times per day. Her last meal/snack was at 6-8 am/pm. Progress Made Towards Goals: 3 month weight goal: 20 6 month weight goal: 30 12 month weight goal: 40 Plan: S/P bariatric surgery stable Continue current management, continue weight loss program Obesity Continue current management, continue weight loss program Stable Discuss how to meal prep after bariatric surgery Stress and stress eating Focus on the meal structure, composition and portion control food diary Family issues Conflict with her dtr In therapy DM Unable to afford mounjaro Will start metformin Lab Results Component Value Date CREATININE 0.71 11/27/2023 [x] Protein goal of 1g protein per 1 kg of ideal body weight: 75 grams [x] Patient advised to maintain a food/exercise/behavior diary until next physician visit. Pt to bring the completed diary to next visit Other: Physician Diet Recommendations given to patient See Follow up Section of today's encounter for next visit and additional scheduling orders I spent a total of 20 minutes on the day of the visit discussing/counseling the patient regarding the post operative management listed below. 1. Adherence to nutrient-dense foods,containing sufficient amounts of lean proteins and fibers. Fluid 30 minutes before or after meals. 1 cup is the maximum meal size. 2. Physical activity - aerobic physical activity 150-300 min/wk and strength training 2-3 times perwk. 3.DM Is associated with obesity and weight loss/ weight maintenance is discussed as a treatment option for DM 4. Weight maintenance after bariatric surgery discussed The patient was seen and a full chart review was performed.Clinical documentation is updated and completed. documented in this [facility]10-11-2024 [facility] POST-OP WEIGHT LOSS MANAGEMENT PROGRESS NOTE FOLLOW UP HPI, PHYSICAL EXAMINATION & PLAN HPI: Patient here today for follow up for weight loss management following surgical weight loss Weight trend since last visit: lost 1 lb over 3 m stable This patient's excess weight is causing the following co-morbid conditions at this time: DM Plan Physical Examination: Blood pressure (!) 158/80, pulse 88, height 5' 3 (1.6 m), weight 226 lb 12.8 oz (103 kg). General: This patient is alert and oriented X3 General: This patient is awake, alert, and oriented, and is in no apparent distress. Extremities: No cyanosis, clubbing or edema/ No calf tenderness/No restrictions of movement, is ambulatory without assistance. Neurological: Intact x 4 extremities, no focal deficits notes. Skin: No rashes or lesions noted. Social History: This patient is unaccompanied for the evaluation today. She does not smoke, and does not drink alcohol. Current Diet This patient?s current diet is: off the meal plan and stress eating Her diet contains adequate amounts of protein, adequate amounts of healthy fats, adequate amounts of green, leafy vegetables, and adequate amounts of fruits. Her comfort foods include:sweets Current Activity Does not exercise Current Eating Behaviors This patients demonstrates the following behaviors as they relate to her eating:eats large portions, eats in response to stress, and eats in response to emotions She eats approximately 3-4 times per day. Her last meal/snack was at 6-8 am/pm. Progress Made Towards Goals: 3 month weight goal: 20 6 month weight goal: 30 12 month weight goal: 40 Plan: S/P bariatric surgery stable Continue current management, continue weight loss program Obesity Continue current management, continue weight loss program Stable Discuss how to meal prep after bariatric surgery Stress and stress eating Focus on the meal structure, composition and portion control food diary Family issues Conflict with her dtr In therapy DM Unable to afford mounjaseth Will start metformin Lab Results Component Value Date CREATININE 0.71 11/27/2023 [x] Protein goal of 1g protein per 1 kg of ideal body weight: 75 grams [x] Patient advised to maintain a food/exercise/behavior diary until next physician visit. Pt to bring the completed diary to next visit Other: Physician Diet Recommendations given to patient See Follow up Section of today's encounter for next visit and additional scheduling orders I spent a total of 20 minutes on the day of the visit discussing/counseling the patient regarding the post operative management listed below. 1. Adherence to nutrient-dense foods,containing sufficient amounts of lean proteins and fibers. Fluid 30 minutes before or after meals. 1 cup is the maximum meal size. 2. Physical activity - aerobic physical activity 150-300 min/wk and strength training 2-3 times per wk. 3.DM Is associated with obesity and weight loss/ weight maintenance is discussed as a treatment option for DM 4. Weight maintenance after bariatric surgery discussed The patient was seen and a full chart review was performed.Clinical documentation is updated and completed.[facility]09-18-2024 Note* Addendum Note - nAne Guzman - 06/11/2024 12:56 PM EDTAddended by: ANNE GUZMAN on: 06/11/2024 12:56 PM Modules accepted: [id number] NoteAddended by: ANNE GUZMAN on: 06/11/2024 12:56 PM Modules accepted: [facility]09-18-2024 Miscellaneous Notes* Addendum Note - Anne Guzman - 06/11/2024 12:56 PM EDTAddended by: ANNE GUZMAN on: 06/11/2024 12:56 PM Modules accepted: Orders * Telephone Encounter - ALIE Shafer - 06/11/2023 11:01 AM EDT Signed, thanks * Telephone Encounter - Magda Patel RD - 06/11/2023 10:47 AM EDT Please see MyChart communication between pt and this RD. Pt was only taking 800 international units per day of Vitamin D3. Pt to begin 4000 international units per day Vitamin D3 (OTC). Will monitor labs in 3 months. Orders pending. Please sign. Thank you! * Telephone Encounter - Magda Patel RD - 06/06/2023 8:58 AM EDT ABRAHAMG 02/15/2022 JRobby 06/05/2023 Vitamin D: 24 (L) Sent [employer] message regarding low Vitamin D. documented in this [facility]07-31-2024 History of Present illness Narrative* Mikayla Frazier MD - 04/23/2024 1:20 PM EDT [facility] POST-OP WEIGHT LOSS MANAGEMENT PROGRESS NOTE FOLLOW UP HPI, PHYSICAL EXAMINATION & PLAN HPI: Patient here today for follow up for weight loss management following surgical weight loss Weight trend since last visit: gain 2 lb over 2 m stable This patient's excess weight is causing the following co-morbid conditions at this time: DM Plan Physical Examination: Height 5' 3 (1.6 m), weight 227 lb 12.8 oz (103 kg). General: This patient is alert and oriented X3 General: This patient is awake, alert, and oriented, and is in no apparent distress. Extremities: No cyanosis, clubbing or edema/ No calf tenderness/No restrictions of movement, is ambulatory without assistance. Neurological: Intact x 4 extremities, no focal deficits notes. Skin: No rashes or lesions noted. Social History: This patient is unaccompanied for the evaluation today. She does not smoke, and does not drink alcohol. Current Diet This patient s current diet is: off the meal plan and stress eating Her diet contains adequate amounts of protein, adequate amounts of healthy fats, adequate amounts of green, leafy vegetables, and adequate amounts of fruits. Her comfort foods include:sweets Current Activity Does not exercise Current Eating Behaviors This patients demonstrates the following behaviors as they relate to her eating:eats large portions, eats in response to stress, and eats in response to emotions She eats approximately 3-4 times per day. Her last meal/snack was at 6-8 am/pm. Progress Made Towards Goals: 3 month weight goal: 20 6 month weight goal: 30 12 month weight goal: 40 Plan: S/P bariatric surgery stable Continue current management, continue weight loss program Obesity Continue current management, continue weight loss program Stable Discuss how to meal prep after bariatric surgery Will see psychology for stress eating counseling Stress and stress eating Focus on the meal structure, composition and portion control food diary Family issues Conflict with her dtr Will start therapy tomorrow DM Stopped metformin On mounjaro 7.5 mg Good tolerance Denied allergy to victoza She was scare of victoza due to her relative recent dx with cancer of throat It was rather long time ago [x] Protein goal of 1g protein per 1 kg of ideal body weight: 75 grams [x] Patient advised to maintain a food/exercise/behavior diary until next physician visit. Pt to bring the completed diary to next visit Other: Physician Diet Recommendations given to patient See Follow up Section of today's encounter for next visit and additional scheduling orders I spent a total of 20 minutes on the day of the visit discussing/counseling the patient regarding the post operative management listed below. 1. Adherence to nutrient-dense foods,containing sufficient amounts of lean proteins and fibers. Fluid 30 minutes before or after meals. 1 cup is the maximum meal size. 2. Physical activity - aerobic physical activity 150-300 min/wk and strength training 2-3 times perwk. 3.DM Is associated with obesity and weight loss/ weight maintenance is discussed as a treatment option for DM 4. Weight maintenance after bariatric surgery discussed The patient was seen and a full chart review was performed.Clinical documentation is updated and completed. * Chetna Kamara LPN - 04/23/2024 1:20 PM EDT [facility] ROOMING NOTE POST WEIGHT LOSS SURGERY WEIGHT LOSS MANAGEMENT Patient: Blaise Monroe Date of : 1955 Service Date: 04/23/2024 This patient is alone for the evaluation today. Reason patient is here today: POP FU. Date of Weight Loss Surgery: 02-15-22 Procedure Performed: Laparoscopic Sleeve Gastrectomy Initial Weight: @FLOWLAST([id number])@ Today's weight has increased from the last visit Pain: Patient rates pain on scale 0-10 as: 0 Falls Risk Assessment Patient does not take medications which affect BP or mental status Patient does have newly prescribed or changed dosage of medications within past 30 days which affect BP or mental status Patient has not fallen in the past 2 months Patient does not demonstrate unsteady gait Patient uses the following ambulatory assistive devices: cane Patient states the presence of the following traits which increases risk of fall: bandages on feet Patient is low risk for falls. Patient is not on home O2 Post-op Weight Metrics: %EBWL: % EBWL: 37% Weight Change Since Last Visit: Weight Change: 2.2 lbs Weight Change from Highest Pre-op Weight: Total Weight Change: -57.2 lbs Completed by: Chetna Kamara LPN documented in this [facility]NA[facility]EMENT PROGRESS NOTE FOLLOW UP HPI, PHYSICAL EXAMINATION & PLAN HPI: Patient here today for follow up for weight loss management following surgical weight loss Weight trend since last visit: gain 2 lb over 2 m stable This patient's excess weight is causing the following co-morbid conditions at this time: DM Plan Physical Examination: Height 5' 3 (1.6 m), weight 227 lb 12.8 oz (103 kg). General: This patient is alert and oriented X3 General: This patient is awake, alert, and oriented, and is in no apparent distress. Extremities: No cyanosis, clubbing or edema/ No calf tenderness/No restrictions of movement, is ambulatory without assistance. Neurological: Intact x 4 extremities, no focal deficits notes. Skin: No rashes or lesions noted. Social History: This patient is unaccompanied for the evaluation today. She does not smoke, and does not drink alcohol. Current Diet This patient?s current diet is: off the meal plan and stress eating Her diet contains adequate amounts of protein, adequate amounts of healthy fats, adequate amounts of green, leafy vegetables, and adequate amounts of fruits. Her comfort foods include:sweets Current Activity Does not exercise Current Eating Behaviors This patients demonstrates the following behaviors as they relate to her eating:eats large portions, eats in response to stress, and eats in response to emotions She eats approximately 3-4 times per day. Her last meal/snack was at 6-8 am/pm. Progress Made Towards Goals: 3 month weight goal: 20 6 month weight goal: 30 12 month weight goal: 40 Plan: S/P bariatric surgery stable Continue current management, continue weight loss program Obesity Continue current management, continue weight loss program Stable Discuss how to meal prep after bariatric surgery Will see psychology for stress eating counseling Stress and stress eating Focus on the meal structure, composition and portion control food diary Family issues Conflict with her dtr Will start therapy tomorrow DM Stopped metformin On mounjaro 7.5 mg Good tolerance Denied allergy to victoza She was scare of victoza due to her relative recent dx with cancer of throat It was rather long time ago [x] Protein goal of 1g protein per 1 kg of ideal body weight: 75 grams [x] Patient advised to maintain a food/exercise/behavior diary until next physician visit. Pt to bring the completed diary to next visit Other: Physician Diet Recommendations given to patient See Follow up Section of today's encounter for next visit and additional scheduling orders I spent a total of 20 minutes on the day of the visit discussing/counseling the patient regarding the post operative management listed below. 1. Adherence to nutrient-dense foods,containing sufficient amounts of lean proteins and fibers. Fluid 30 minutes before or after meals. 1 cup is the maximum meal size. 2. Physical activity - aerobic physical activity 150-300 min/wk and strength training 2-3 times per wk. 3.DM Is associated with obesity and weight loss/ weight maintenance is discussed as a treatment option for DM 4. Weight maintenance after bariatric surgery discussed The patient was seen and a full chart review was performed.Clinical documentation is updated and completed.[facility] [id number] Hospital Discharge instructions Patient Education 04/09/2024 00:15:27 Contact Dermatitis Contact Dermatitis Contact dermatitis is a skin rash caused by something that touches the skin and makes it irritated and inflamed. Your skin may be red, swollen, dry, and may be cracked. Blisters may form and ooze. The rash will itch. Contact dermatitis can form on the face and neck, backs of hands, forearms, genitals, and lower legs. People can get contact dermatitis from lots of sources. These include: Plants such as poison kristi, oak, or sumac Chemicals in hair dyes and rinses, soaps, solvents, waxes, fingernail turkish, and deodorants Jewelry or watchbands made of nickel Contact dermatitis is not passed from person to person. Talk with your healthcare provider about what may have caused the rash. A type of allergy testing called patch testing may be used to discover what you are allergic to. You will need to avoid the source of your rash in the future to prevent it from coming back. Treatment is done to relieve itching and prevent the rash from coming back. The rash should go awayin a few days to a few weeks. Home care Your healthcare provider may prescribe medicine to relieve swelling and itching. Follow all instructions when using these medicines. General care: Avoid anything that heats up your skin, such as hot showers or baths, or direct sunlight. This can make itching worse. Apply cold compresses to soothe your sores to help relieve your symptoms. Do this for 30 minutes 3 to 4 times a day. You can make a cold compress by soaking a cloth in cold water. Squeeze out excess water. You can add colloidal oatmeal to the water to help reduce itching. For severe itching in a small area, apply an ice pack wrapped in a thin towel. Do this for 20 minutes 3 to 4 times a day. You can also try wet dressings. One way to do this is to wear a wet piece of clothing under a dry one. Wear a damp shirt under a dry shirt if your upper body is affected. This can relieve itching andprevent you from scratching the affected area. You can also help relieve large areas of itching by taking a lukewarm bath with colloidal oatmeal added to the water. Use hydrocortisone cream for redness and irritation, unless another medicine was prescribed. You can also use benzocaine anesthetic cream or spray. Calamine lotion can also relieve mild symptoms. Use oral diphenhydramine to help reduce itching. You can buy this antihistamine at drug and grocerystores. It can make you sleepy, so use lower doses during the daytime. Or you can use loratadine. This is an antihistamine that will not make you sleepy. Do not use diphenhydramine if you have glaucoma or have trouble urinating due to an enlarged prostate. If a plant causes your rash, make sure to wash your skin and the clothes you were wearing when you came into contact with the plant. This is to wash away the plant oils that gave you the rash and prevent more or worse symptoms. Stay away from the substance or object that causes your symptoms. If you can t avoid it, wear gloves or some other type of protection. Follow-up care Follow up with your healthcare provider, or as advised. When to seek medical advice Call your healthcare provider right away if any of these occur: Spreading of the rash to other parts of your body Severe swelling of your face, eyelids, mouth, throat or tongue Trouble urinating due to swelling in the genital area Fever of 100.4 F (38 C) or higher Redness or swelling that gets worse Pain that gets worse Foul-smelling fluid leaking from the skin Yellow-brown crusts on the open blisters [id number] [employer]. [address] [place] [address]. All rights reserved. This information is not intended as a substitute for professional medical care. Always follow yourhealthcare professional's instructions. Follow Up Care 04/08/2024 23:37:51 With:Go to emergency room if symptoms worsen Address:Unknown When:2-4 days With:ELISSA DIAL DO Address: [address] [place] [id number] When:2-4 days [facility] 07-17-2024 Note Discharge Instructions Thank you for allowing [facility] to assist you with your healthcare needs. The following is importantdischarge information regarding your hospital visit. Diagnosis from Today's Visit Contact dermatitis What to Do Next Instructions from Your Care Team No qualifying data available. Post Acute Orders No qualifying data available. You Need to Schedule the Following Appointments Follow Up with Go to emergency room if symptoms worsen When:Within 2-4 days Follow Up with ELISSA DIAL DO When:Within 2-4 days [address] [facility] [facility] [address]- Allergies Darvocet Tape Xarelto Zestril Hives clindamycin metoprolol Hives Medications Please ask your primary doctor or pharmacist before taking any other medication not listed, including over the counter drugs, herbal medications, vitamins and or supplements as they may interact withyour home medications. 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 Unchanged fluticasone-salmeterol (Wixela Inhub 250 mcg-50 mcg inhalation powder) 1 puff(s) by inhalation Two (2) times a day Unchanged gabapentin (Neurontin 100 mg oral capsule) 1 cap by mouth Three (3) times a day Unchanged glipiZIDE (glipiZIDE 5 mg oral tablet) 1 tab(s) by mouth Once a day before a meal Unchanged losartan (losartan 25 mg oral tablet) 1 tab(s) by mouth Once a day Unchanged magnesium oxide (magnesium oxide 400 mg oral tablet) 1 tab(s) by mouth Once a day Unchanged meclizine (meclizine 25 mg oral tablet) 1 tab(s) by mouth Two (2) times a day as needed for as needed for dizziness Unchanged metFORMIN (metFORMIN 500 mg oral tablet (IR)) 1 tab(s) by mouth Two (2) times a day Unchanged multivitamin with minerals (Flintstones Complete oral tablet, chewable) 1 tab(s) by mouth Once a day Unchanged omeprazole (PriLOSEC OTC 20 mg oral delayed release tablet) 1 tab(s) by mouth Two (2) times a day Unchanged ondansetron (Zofran 8 mg oral tablet) 1 tab(s) by mouth Every 8 hours as needed for Nausea/Vomiting Unchanged potassium chloride (Potassium Chloride (Eqv-K-Tab) 20 mEq oral tablet, extended release) 1 tab(s) by mouth Two (2) times a day Take with food. Unchanged rOPINIRole (rOPINIRole 3 mg oral tablet) 3 tab(s) by mouth Daily at bedtime Unchanged semaglutide (Ozempic 2 mg/ 3 mL (0.25 mg or 0.5 mg dose) subcutaneous solution) 0.25 Milligram Subcutaneous Every week rotate injection sites Unchanged sertraline (Zoloft 100 mg oral tablet) 2 tab(s) by mouth Once a day (in the morning) Unchanged traMADol (traMADol 50 mg oral tablet) 1 tab(s) by mouth Every 6 hours as needed for for pain Unchanged warfarin (warfarin 2 mg oral tablet) 1 tab(s) by mouth Once a day Unchanged warfarin (warfarin 3 mg oral tablet) 1 tab(s) by mouth Every day Please take this list to your next doctor s visit. Bring all medications you take, including over the counter medications, herbals and other supplements with you to your doctor s visit. Patients and families are reminded to discard old lists and to update any records with all medication providers or retail pharmacies. Education Materials Contact Dermatitis Contact dermatitis is a skin rash caused by something that touches the skin and makes it irritated and inflamed. Your skin may be red, swollen, dry, and may be cracked. Blisters may form and ooze. The rash will itch. Contact dermatitis can form on the face and neck, backs of hands, forearms, genitals, and lower legs. People can get contact dermatitis from lots of sources. These include: Plants such as poison kristi, oak, or sumac Chemicals in hair dyes and rinses, soaps, solvents, waxes, fingernail turkish, and deodorants Jewelry or watchbands made of nickel Contact dermatitis is not passed from person to person. Talk with your healthcare provider about what may have caused the rash. A type of allergy testing called patch testing may be used to discover what you are allergic to. You will need to avoid the source of your rash in the future to prevent it from coming back. Treatment is done to relieve itching and prevent the rash from coming back. The rash should go awayin a few days to a few weeks. Home care Your healthcare provider may prescribe medicine to relieve swelling and itching. Follow all instructions when using these medicines. General care: Avoid anything that heats up your skin, such as hot showers or baths, or direct sunlight. This can make itching worse. Apply cold compresses to soothe your sores to help relieve your symptoms. Do this for 30 minutes 3 to 4 times a day. You can make a cold compress by soaking a cloth in cold water. Squeeze out excess water. You can add colloidal oatmeal to the water to help reduce itching. For severe itching in a small area, apply an ice pack wrapped in a thin towel. Do this for 20 minutes 3 to 4 times a day. You can also try wet dressings. One way to do this is to wear a wet piece of clothing under a dry one. Wear a damp shirt under a dry shirt if your upper body is affected. This can relieve itching andprevent you from scratching the affected area. You can also help relieve large areas of itching by taking a lukewarm bath with colloidal oatmeal added to the water. Use hydrocortisone cream for redness and irritation, unless another medicine was prescribed. You can also use benzocaine anesthetic cream or spray. Calamine lotion can also relieve mild symptoms. Use oral diphenhydramine to help reduce itching. You can buy this antihistamine at drug and grocerBallooning Nest Eggsores. It can make you sleepy, so use lower doses during the daytime. Or you can use loratadine. This is an antihistamine that will not make you sleepy. Do not use diphenhydramine if you have glaucoma or have trouble urinating due to an enlarged prostate. If a plant causes your rash, make sure to wash your skin and the clothes you were wearing when you came into contact with the plant. This is to wash away the plant oils that gave you the rash and prevent more or worse symptoms. Stay away from the substance or object that causes your symptoms. If you can t avoid it, wear gloves or some other type of protection. Follow-up care Follow up with your healthcare provider, or as advised. When to seek medical advice Call your healthcare provider right away if any of these occur: Spreading of the rash to other parts of your body Severe swelling of your face, eyelids, mouth, throat or tongue Trouble urinating due to swelling in the genital area Fever of 100.4 F (38 C) or higher Redness or swelling that gets worse Pain that gets worse Foul-smelling fluid leaking from the skin Yellow-brown crusts on the open blisters [id number] [employer]. [address] [place] [address]. All rights reserved. This information is not intended as a substitute for professional medical care. Always follow yourhealthcare professional's instructions. Additional Information VACCINATE! IT SAVES LIVES! Members of the community who have not yet received the COVID-19 vaccine and would like to receive it can visit one of [facility] vaccine clinics. There are many vaccine clinic locations within the [facility]. For locations and available times, please visit www.[email or web address].[place].gov/. It is important to note that some COVID mobile vaccine clinics are held outdoors and may be canceled in rainy or stormy conditions. To learn more about pediatric vaccinations (ages 5-11), we invite you to visit the [facility] webpage. [email or web address]/[email or web address] learn more about the COVID-19 vaccine, we invite you to visit the CDC website for a list of frequently asked questions. https://www.cdc.gov/coronavirus/2019-ncov/vaccines/faq.html [facility] Patient Portal Access Instructions: Stay connected with your healthcare team and access your personal medical information anytime with the [facility] Patient Portal. If you would like a full copy of your medical records please contact the [facility] Medical Records Department Sunday through Sunday between 8a.m. and 4:30p.m. Please follow the directions below to access the portal: 1.Access the email account you provided upon registration to the hospital.2.Look for an invitation email from [facility].3.Open the email and access the invitation link: Accept Invitation to [facility]4.Fill in the required milton to create your account. Sign into [email or web address] with your username and password that you created in the above steps to stay up to date. You can then view a summary of results, a summary of your visits, and the ability to download your summaries to your computer or send the information securely to a physician. Remember that your healthcare information is confidential, so carefully consider who you will allow to register on the [facility] Patient Portal for access to your information. You can also access the [facility] Patient Portal on the [employer]. Simply click on Health Records under [employer] and then click on the [employer] logo. HOW TO SAFELY DISPOSE OF PRESCRIPTION MEDICATIONS Please use one of the following methods to safely dispose of your unused medications. 1.Use a drug disposal kit: the drug disposal pouch allows you to safely discard your old and unuseddrugs. Ask your nurse to give you one when you are discharged.2.Visit a local take-back location: Many local pharmacies and police departments have programs that collect old and unwanted prescriptiondrugs. Call your local pharmacy or go to http://[employer].Post-A-Vox/9L5Zr7o to find one close to you.3.Make use of household items: Use cat litter or old coffee grounds to dispose medications if other options arenot available. Mix your drugs with these household products, seal them in an airtight container andthrow it into the garbage. Call [facility]: [phone] to be sure your drugs can be disposed of in this way. Some medicines may require a different approach.4.Never flush your medications down the toilet. IF YOU HAVE BEEN PRESCRIBED AN OPIOIDS FOR PAIN If you have been prescribed an opioid (such as hydrocodone, oxycodone or morphine), it is critical to understand the possible side effects and risks of opioid pain medications. Even when taken as directed, opioids can have several side effects including: Tolerance, meaning you might need to take more of a medication for the same pain relief. Nausea, vomiting and/or constipation. Sleepiness, dizziness, dry mouth, confusion, depression or itching. Physical dependence, meaning you have withdrawal symptoms when a medication is stopped ? this can develop within a few days. KNOW YOUR RESPONSIBILITIES It is important to know exactly how much and how often to take the opioid pain medications you are prescribed. Never take opioids in higher amounts or more often than prescribed. Do not combine opioids with alcohol or other drugs that cause drowsiness, such as benzodiazepines, also known as benzos,including diazepam and alprazolam, muscle relaxants or sleep aids. Never sell or share prescriptionopioids. This is illegal. Store opioids in a secure place and out of reach of others (including children, family, friends and visitors). The last page(s) of this document has been signed and retained as a CHART COPY Signatures Patient Education Materials Contact Dermatitis Medication Leaflets My discharge plan and instructions have been reviewed and explained to me and I,HEAVEN MONROE understand my current condition and have read and understand these discharge instructions. I have received a written copy of the plan/instructions. If I have questions, I am aware that I should contactmy doctor. 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: Date/Time: Relationship to Patient: Witness Name/Signature: Date/Time: [facility]06-05-2024 NoteAddended by: CODY KAMARA on: 02/27/2024 01:45 PM Modules accepted: [facility]06-05-2024 History of Present illness Narrative* Anne Swanson MA - 02/27/2024 12:40 PM EDT [facility] ROOMING NOTE POST WEIGHT LOSS SURGERY FOLLOW UP Patient: Blaise Monroe Service Date: 02/27/2024 Patient is 1 year(s) s/p Sleeve Gastrectomy Today's Metrics: Post-Surgical Weight Loss Date: 02/27/24 Height: 5' 3 (160 cm) Weight: 225 lb 9.6 oz (102 kg) BMI: 39.96 Weight Change: -3 lbs Total Weight Change: -59.4 lbs % EBWL: 39% Post-op Weight Metrics: Post-Surgical Weight Loss Date: 02/27/24 Height: 5' 3 (160 cm) Weight: 225 lb 9.6 oz (102 kg) BMI: 39.96 Weight Change: -3 lbs Total Weight Change: -59.4 lbs % EBWL: 39% (From Surgical Weight Loss Tracker) Patient has the following questions: None Reported Pain: Patient rates pain on scale 0-10 as: 0 Exercise Compliance: Exercising: no If yes: Type: 0 Times per week: 0 Min per session: 0 Falls Risk Assessment Patient does take medications which affect BP or mental status Patient does not t have newly prescribed or changed dosage of medications within past 30 days whichaffect BP or mental status Patient has not fallen in the past 2 months Patient does not t demonstrate unsteady gait Patient uses the following ambulatory assistive devices: cane Patient states the presence of the following traits which increases risk of fall: bad back Patient is not on home O2 Pre-op Weight Metrics: Labs Completed: no - If NO, patient instructed to get labs drawn today or ROSEY If YES: Labs completed at [facility]? N/A If yes see Labs Tab Labs completed at [facility] facility? N/A If yes see Encounters Tab - Orders only - Historical Provider - Date: Completed by: Anne Swanson MA * Mikayla Frazier MD - 02/27/2024 12:40 PM EDT [facility] POST-OP WEIGHT LOSS MANAGEMENT PROGRESS NOTE FOLLOW UP HPI, PHYSICAL EXAMINATION & PLAN HPI: Patient here today for follow up for weight loss management following surgical weight loss Weight trend since last visit: lost 3 lb over 2 m stable This patient's excess weight is causing the following co-morbid conditions at this time: DM Plan Physical Examination: Blood pressure (!) 157/91, pulse 108, height 5' 3 (1.6 m), weight 225 lb 9.6 oz (102 kg). General: This patient is alert and oriented X3 General: This patient is awake, alert, and oriented, and is in no apparent distress. Extremities: No cyanosis, clubbing or edema/ No calf tenderness/No restrictions of movement, is ambulatory without assistance. Neurological: Intact x 4 extremities, no focal deficits notes. Skin: No rashes or lesions noted. Social History: This patient is unaccompanied for the evaluation today. She does not smoke, and does not drink alcohol. Current Diet This patient s current diet is: off the meal plan and stress eating Her diet contains adequate amounts of protein, adequate amounts of healthy fats, adequate amounts of green, leafy vegetables, and adequate amounts of fruits. Her comfort foods include:sweets Current Activity Does not exercise Current Eating Behaviors This patients demonstrates the following behaviors as they relate to her eating:eats large portions, eats in response to stress, and eats in response to emotions She eats approximately 3-4 times per day. Her last meal/snack was at 6-8 am/pm. Progress Made Towards Goals: 3 month weight goal: 20 6 month weight goal: 30 12 month weight goal: 40 Plan: S/P bariatric surgery stable Continue current management, continue weight loss program Obesity Continue current management, continue weight loss program Stable Discuss how to meal prep after bariatric surgery Will see psychology for stress eating counseling Stress and stress eating Focus on the meal structure, composition and portion control food diary Family issues Conflict with her dtr DM Stopped metformin On mounjaro 7.5 mg Good tolerance Denied allergy to victoza She was scare of victoza due to her relative recent dx with cancer of throat It was rather long time ago [x] Protein goal of 1g protein per 1 kg of ideal body weight: 75 grams [x] Patient advised to maintain a food/exercise/behavior diary until next physician visit. Pt to bring the completed diary to next visit Other: Physician Diet Recommendations given to patient See Follow up Section of today's encounter for next visit and additional scheduling orders I spent a total of 20 minutes on the day of the visit discussing/counseling the patient regarding the post operative management listed below. 1. Adherence to nutrient-dense foods,containing sufficient amounts of lean proteins and fibers. Fluid 30 minutes before or after meals. 1 cup is the maximum meal size. 2. Physical activity - aerobic physical activity 150-300 min/wk and strength training 2-3 times perwk. 3.DM Is associated with obesity and weight loss/ weight maintenance is discussed as a treatment option for DM 4. Weight maintenance after bariatric surgery discussed The patient was seen and a full chart review was performed.Clinical documentation is updated and completed. documented in this [facility]06-05-2024 [facility] POST-OP WEIGHT LOSS MANAGEMENT PROGRESS NOTE FOLLOW UP HPI, PHYSICAL EXAMINATION & PLAN HPI: Patient here today for follow up for weight loss management following surgical weight loss Weight trend since last visit: lost 3 lb over 2 m stable This patient's excess weight is causing the following co-morbid conditions at this time: DM Plan Physical Examination: Blood pressure (!) 157/91, pulse 108, height 5' 3 (1.6 m), weight 225 lb 9.6 oz (102 kg). General: This patient is alert and oriented X3 General: This patient is awake, alert, and oriented, and is in no apparent distress. Extremities: No cyanosis, clubbing or edema/ No calf tenderness/No restrictions of movement, is ambulatory without assistance. Neurological: Intact x 4 extremities, no focal deficits notes. Skin: No rashes or lesions noted. Social History: This patient is unaccompanied for the evaluation today. She does not smoke, and does not drink alcohol. Current Diet This patient?s current diet is: off the meal plan and stress eating Her diet contains adequate amounts of protein, adequate amounts of healthy fats, adequate amounts of green, leafy vegetables, and adequate amounts of fruits. Her comfort foods include:sweets Current Activity Does not exercise Current Eating Behaviors This patients demonstrates the following behaviors as they relate to her eating:eats large portions, eats in response to stress, and eats in response to emotions She eats approximately 3-4 times per day. Her last meal/snack was at 6-8 am/pm. Progress Made Towards Goals: 3 month weight goal: 20 6 month weight goal: 30 12 month weight goal: 40 Plan: S/P bariatric surgery stable Continue current management, continue weight loss program Obesity Continue current management, continue weight loss program Stable Discuss how to meal prep after bariatric surgery Will see psychology for stress eating counseling Stress and stress eating Focus on the meal structure, composition and portion control food diary Family issues Conflict with her dtr DM Stopped metformin On mounjaro 7.5 mg Good tolerance Denied allergy to victoza She was scare of victoza due to her relative recent dx with cancer of throat It was rather long time ago [x] Protein goal of 1g protein per 1 kg of ideal body weight: 75 grams [x] Patient advised to maintain a food/exercise/behavior diary until next physician visit. Pt to bring the completed diary to next visit Other: Physician Diet Recommendations given to patient See Follow up Section of today's encounter for next visit and additional scheduling orders I spent a total of 20 minutes on the day of the visit discussing/counseling the patient regarding the post operative management listed below. 1. Adherence to nutrient-dense foods,containing sufficient amounts of lean proteins and fibers. Fluid 30 minutes before or after meals. 1 cup is the maximum meal size. 2. Physical activity - aerobic physical activity 150-300 min/wk and strength training 2-3 times per wk. 3.DM Is associated with obesity and weight loss/ weight maintenance is discussed as a treatment option for DM 4. Weight maintenance after bariatric surgery discussed The patient was seen and a full chart review was performed.Clinical documentation is updated and completed.[facility]04-17-2024 History of Present illness Narrative* Chetna Kamara LPN - 01/09/2024 12:40 PM EDT [facility] ROOMING NOTE POST WEIGHT LOSS SURGERY WEIGHT LOSS MANAGEMENT Patient: Blaise Monroe Date of : 1955 Service Date: 01/09/2024 This patient is alone for the evaluation today. Reason patient is here today: POP FU. Date of Weight Loss Surgery: 02-15-22 Procedure Performed: Laparoscopic Sleeve Gastrectomy Initial Weight: @FLOWLAST([id number])@ Today's weight has decreased from the last visit Pain: Patient rates pain on scale 0-10 as: 0 Falls Risk Assessment Patient does not take medications which affect BP or mental status Patient does not have newly prescribed or changed dosage of medications within past 30 days which affect BP or mental status Patient has not fallen in the past 2 months Patient does not demonstrate unsteady gait Patient uses the following ambulatory assistive devices: cane Patient states the presence of the following traits which increases risk of fall: knee and lower back pain Patient is moderate risk for falls. Patient is not on home O2 Post-op Weight Metrics: %EBWL: % EBWL: 37% Weight Change Since Last Visit: Weight Change: -5.4 lbs Weight Change from Highest Pre-op Weight: Total Weight Change: -56.4 lbs Completed by: Chetna Kamara LPN * Mikayla Frazier MD - 01/09/2024 12:40 PM EDT [facility] POST-OP WEIGHT LOSS MANAGEMENT PROGRESS NOTE FOLLOW UP HPI, PHYSICAL EXAMINATION & PLAN HPI: Patient here today for follow up for weight loss management following surgical weight loss Weight trend since last visit: lost 6 lb over 1 m stable This patient's excess weight is causing the following co-morbid conditions at this time: DM Plan Physical Examination: Blood pressure (!) 149/81, pulse 102, height 5' 3 (1.6 m), weight 228 lb 9.6 oz (104 kg). General: This patient is alert and oriented X3 General: This patient is awake, alert, and oriented, and is in no apparent distress. Extremities: No cyanosis, clubbing or edema/ No calf tenderness/No restrictions of movement, is ambulatory without assistance. Neurological: Intact x 4 extremities, no focal deficits notes. Skin: No rashes or lesions noted. Social History: This patient is unaccompanied for the evaluation today. She does not smoke, and does not drink alcohol. Current Diet This patient s current diet is: off the meal plan and stress eating Her diet contains adequate amounts of protein, adequate amounts of healthy fats, adequate amounts of green, leafy vegetables, and adequate amounts of fruits. Her comfort foods include:sweets Current Activity Does not exercise Current Eating Behaviors This patients demonstrates the following behaviors as they relate to her eating:eats large portions, eats in response to stress, and eats in response to emotions She eats approximately 3-4 times per day. Her last meal/snack was at 6-8 am/pm. Progress Made Towards Goals: 3 month weight goal: 20 6 month weight goal: 30 12 month weight goal: 40 Plan: S/P bariatric surgery stable Continue current management, continue weight loss program Obesity Continue current management, continue weight loss program Stable Discuss how to meal prep after bariatric surgery Will see psychology for stress eating counseling Stress and stress eating Focus on the meal structure, composition and portion control food diary Family issues Conflict with her dtr DM Stopped metformin On mounjaro 7.5 mg Good tolerance Denied allergy to victoza She was scare of victoza due to her relative recent dx with cancer of throat It was rather long time ago [x] Protein goal of 1g protein per 1 kg of ideal body weight: 75 grams [x] Patient advised to maintain a food/exercise/behavior diary until next physician visit. Pt to bring the completed diary to next visit Other: Physician Diet Recommendations given to patient See Follow up Section of today's encounter for next visit and additional scheduling orders I spent a total of 20 minutes on the day of the visit discussing/counseling the patient regarding the post operative management listed below. 1. Adherence to nutrient-dense foods,containing sufficient amounts of lean proteins and fibers. Fluid 30 minutes before or after meals. 1 cup is the maximum meal size. 2. Physical activity - aerobic physical activity 150-300 min/wk and strength training 2-3 times perwk. 3.DM Is associated with obesity and weight loss/ weight maintenance is discussed as a treatment option for DM 4. Weight maintenance after bariatric surgery discussed The patient was seen and a full chart review was performed.Clinical documentation is updated and completed. documented in this [facility]04-17-2024 [facility] POST-OP WEIGHT LOSS MANAGEMENT PROGRESS NOTE FOLLOW UP HPI, PHYSICAL EXAMINATION & PLAN HPI: Patient here today for follow up for weight loss management following surgical weight loss Weight trend since last visit: lost 6 lb over 1 m stable This patient's excess weight is causing the following co-morbid conditions at this time: DM Plan Physical Examination: Blood pressure (!) 149/81, pulse 102, height 5' 3 (1.6 m), weight 228 lb 9.6 oz (104 kg). General: This patient is alert and oriented X3 General: This patient is awake, alert, and oriented, and is in no apparent distress. Extremities: No cyanosis, clubbing or edema/ No calf tenderness/No restrictions of movement, is ambulatory without assistance. Neurological: Intact x 4 extremities, no focal deficits notes. Skin: No rashes or lesions noted. Social History: This patient is unaccompanied for the evaluation today. She does not smoke, and does not drink alcohol. Current Diet This patient?s current diet is: off the meal plan and stress eating Her diet contains adequate amounts of protein, adequate amounts of healthy fats, adequate amounts of green, leafy vegetables, and adequate amounts of fruits. Her comfort foods include:sweets Current Activity Does not exercise Current Eating Behaviors This patients demonstrates the following behaviors as they relate to her eating:eats large portions, eats in response to stress, and eats in response to emotions She eats approximately 3-4 times per day. Her last meal/snack was at 6-8 am/pm. Progress Made Towards Goals: 3 month weight goal: 20 6 month weight goal: 30 12 month weight goal: 40 Plan: S/P bariatric surgery stable Continue current management, continue weight loss program Obesity Continue current management, continue weight loss program Stable Discuss how to meal prep after bariatric surgery Will see psychology for stress eating counseling Stress and stress eating Focus on the meal structure, composition and portion control food diary Family issues Conflict with her dtr DM Stopped metformin On mounjaro 7.5 mg Good tolerance Denied allergy to victoza She was scare of victoza due to her relative recent dx with cancer of throat It was rather long time ago [x] Protein goal of 1g protein per 1 kg of ideal body weight: 75 grams [x] Patient advised to maintain a food/exercise/behavior diary until next physician visit. Pt to bring the completed diary to next visit Other: Physician Diet Recommendations given to patient See Follow up Section of today's encounter for next visit and additional scheduling orders I spent a total of 20 minutes on the day of the visit discussing/counseling the patient regarding the post operative management listed below. 1. Adherence to nutrient-dense foods,containing sufficient amounts of lean proteins and fibers. Fluid 30 minutes before or after meals. 1 cup is the maximum meal size. 2. Physical activity - aerobic physical activity 150-300 min/wk and strength training 2-3 times per wk. 3.DM Is associated with obesity and weight loss/ weight maintenance is discussed as a treatment option for DM 4. Weight maintenance after bariatric surgery discussed The patient was seen and a full chart review was performed.Clinical documentation is updated and completed.[facility]04-08-2024 Telephone encounter Note* Telephone Encounter - Magda Patel, FRANKIE - 12/31/2023 4:42 PM EDT Noted Vitamin D addressed in OV with Dr. Frazier-see note 12/12/2023. Rx started, per Dr. Frazier. [id number] Miscellaneous Notes* Telephone Encounter - Magda Patel RD - 12/31/2023 4:42 PM EDT Noted Vitamin D addressed in OV with Dr. Frazier-see note 12/12/2023. Rx started, per Dr. Frazier. Closing encounter. * Telephone Encounter - Magda Patel RD - 12/03/2023 4:57 PM EDT [facility] 02/15/2022 JZ 12/12/[id number] Dr. Frazier 11/27/2023 Vitamin D: 22 (L) MyChart sent regarding lab. documented in this [facility] [id number] History of Present illness Narrative* Chetna Kamara LPN - 12/12/2023 8:20 AM EDT [facility] ROOMING NOTE POST WEIGHT LOSS SURGERY WEIGHT LOSS MANAGEMENT Patient: Blaise Monroe Date of : 1955 Service Date: 12/12/2023 This patient is alone for the evaluation today. Reason patient is here today: POP FU. Date of Weight Loss Surgery: 02-15-22 Procedure Performed: Laparoscopic Sleeve Gastrectomy Initial Weight: @FLOWLAST([id number])@ Today's weight has decreased from the last visit Pain: Patient rates pain on scale 0-10 as: 0 Falls Risk Assessment Patient does not take medications which affect BP or mental status Patient does not have newly prescribed or changed dosage of medications within past 30 days which affect BP or mental status Patient has not fallen in the past 2 months Patient does not demonstrate unsteady gait Patient uses the following ambulatory assistive devices: cane Patient states the presence of the following traits which increases risk of fall: hip and knee pain Patient is moderate risk for falls. Patient is not on home O2 Post-op Weight Metrics: %EBWL: % EBWL: 33% Weight Change Since Last Visit: Weight Change: -4.6 lbs Weight Change from Highest Pre-op Weight: Total Weight Change: -51 lbs Completed by: Chetna Kamara LPN * Mikayla Frazier MD - 12/12/2023 8:20 AM EDT [facility] POST-OP WEIGHT LOSS MANAGEMENT PROGRESS NOTE FOLLOW UP HPI, PHYSICAL EXAMINATION & PLAN HPI: Patient here today for follow up for weight loss management following surgical weight loss Weight trend since last visit: lost 4 lb over 1 m stable This patient's excess weight is causing the following co-morbid conditions at this time: DM Plan Physical Examination: Blood pressure (!) 177/95, pulse 102, height 5' 3.5 (1.613 m), weight 234 lb (106 kg). General: This patient is alert and oriented X3 General: This patient is awake, alert, and oriented, and is in no apparent distress. Extremities: No cyanosis, clubbing or edema/ No calf tenderness/No restrictions of movement, is ambulatory without assistance. Neurological: Intact x 4 extremities, no focal deficits notes. Skin: No rashes or lesions noted. Social History: This patient is unaccompanied for the evaluation today. She does not smoke, and does not drink alcohol. Current Diet This patient s current diet is: off the meal plan and stress eating Her diet contains adequate amounts of protein, adequate amounts of healthy fats, adequate amounts of green, leafy vegetables, and adequate amounts of fruits. Her comfort foods include:sweets Current Activity Does not exercise Will start PT Current Eating Behaviors This patients demonstrates the following behaviors as they relate to her eating:eats large portions, eats in response to stress, and eats in response to emotions She eats approximately 3-4 times per day. Her last meal/snack was at 6-8 am/pm. Progress Made Towards Goals: 3 month weight goal: 20 6 month weight goal: 30 12 month weight goal: 40 Plan: S/P bariatric surgery stable Continue current management, continue weight loss program Obesity Continue current management, continue weight loss program Stable Discuss how to meal prep after bariatric surgery Will see psychology for stress eating counseling Stress and stress eating Focus on the meal structure, composition and portion control food diary Does not take vit D regularly Will start vit D and confirm her vit D dose by email Recheck vit D in 3 m Family issues Conflict with her dtr DM Stopped metformin On mounjaro 5 mg Good tolerance Denied allergy to victoza She was scare of victoza due to her relative recent dx with cancer of throat It was rather long time ago [x] Protein goal of 1g protein per 1 kg of ideal body weight: 75 grams [x] Patient advised to maintain a food/exercise/behavior diary until next physician visit. Pt to bring the completed diary to next visit Other: Physician Diet Recommendations given to patient See Follow up Section of today's encounter for next visit and additional scheduling orders I spent a total of 20 minutes on the day of the visit discussing/counseling the patient regarding the post operative management listed below. 1. Adherence to nutrient-dense foods,containing sufficient amounts of lean proteins and fibers. Fluid 30 minutes before or after meals. 1 cup is the maximum meal size. 2. Physical activity - aerobic physical activity 150-300 min/wk and strength training 2-3 times perwk. 3.DM Is associated with obesity and weight loss/ weight maintenance is discussed as a treatment option for DM 4. Weight maintenance after bariatric surgery discussed 5. Blood work is ordered The patient was seen and a full chart review was performed.Clinical documentation is updated and completed. documented in this [facility]03-20-2024 [facility] POST-OP WEIGHT LOSS MANAGEMENT PROGRESS NOTE FOLLOW UP HPI, PHYSICAL EXAMINATION & PLAN HPI: Patient here today for follow up for weight loss management following surgical weight loss Weight trend since last visit: lost 4 lb over 1 m stable This patient's excess weight is causing the following co-morbid conditions at this time: DM Plan Physical Examination: Blood pressure (!) 177/95, pulse 102, height 5' 3.5 (1.613 m), weight 234 lb (106 kg). General: This patient is alert and oriented X3 General: This patient is awake, alert, and oriented, and is in no apparent distress. Extremities: No cyanosis, clubbing or edema/ No calf tenderness/No restrictions of movement, is ambulatory without assistance. Neurological: Intact x 4 extremities, no focal deficits notes. Skin: No rashes or lesions noted. Social History: This patient is unaccompanied for the evaluation today. She does not smoke, and does not drink alcohol. Current Diet This patient?s current diet is: off the meal plan and stress eating Her diet contains adequate amounts of protein, adequate amounts of healthy fats, adequate amounts of green, leafy vegetables, and adequate amounts of fruits. Her comfort foods include:sweets Current Activity Does not exercise Will start PT Current Eating Behaviors This patients demonstrates the following behaviors as they relate to her eating:eats large portions, eats in response to stress, and eats in response to emotions She eats approximately 3-4 times per day. Her last meal/snack was at 6-8 am/pm. Progress Made Towards Goals: 3 month weight goal: 20 6 month weight goal: 30 12 month weight goal: 40 Plan: S/P bariatric surgery stable Continue current management, continue weight loss program Obesity Continue current management, continue weight loss program Stable Discuss how to meal prep after bariatric surgery Will see psychology for stress eating counseling Stress and stress eating Focus on the meal structure, composition and portion control food diary Does not take vit D regularly Will start vit D and confirm her vit D dose by email Recheck vit D in 3 m Family issues Conflict with her dtr DM Stopped metformin On mounjaro 5 mg Good tolerance Denied allergy to victoza She was scare of victoza due to her relative recent dx with cancer of throat It was rather long time ago [x] Protein goal of 1g protein per 1 kg of ideal body weight: 75 grams [x] Patient advised to maintain a food/exercise/behavior diary until next physician visit. Pt to bring the completed diary to next visit Other: Physician Diet Recommendations given to patient See Follow up Section of today's encounter for next visit and additional scheduling orders I spent a total of 20 minutes on the day of the visit discussing/counseling the patient regarding the post operative management listed below. 1. Adherence to nutrient-dense foods,containing sufficient amounts of lean proteins and fibers. Fluid 30 minutes before or after meals. 1 cup is the maximum meal size. 2. Physical activity - aerobic physical activity 150-300 min/wk and strength training 2-3 times per wk. 3.DM Is associated with obesity and weight loss/ weight maintenance is discussed as a treatment option for DM 4. Weight maintenance after bariatric surgery discussed 5. Blood work is ordered The patient was seen and a full chart review was performed.Clinical documentation is updated and completed.[facility]03-19-2024 Telephone encounter Note* Telephone Encounter - Chetna Kamara LPN - 12/11/2023 2:05 PM EDT Please sign pt appt 12[facility]12-23 [id number] Miscellaneous Notes* Telephone Encounter - Chetna Kamara LPN - 12/11/2023 2:05 PM EDT Please sign pt appt 12-12-23 [facility] this [id number] Telephone encounter Note* Telephone Encounter - Magda Patel RD - 12/03/2023 4:57 PM EDT [facility] 02/15/2022 JRobby 12/12/20238477-emqn-lb Dr. Frazier 11/27/2023 Vitamin D: 22 (L) MyChart sent regarding lab. [id number] History of Present illness Narrative* Anne Swanson MA - 11/14/2023 10:00 AM EST [facility] ROOMING NOTE POST WEIGHT LOSS SURGERY FOLLOW UP Patient: Blaise Monroe Service Date: 11/14/2023 Patient is 18 month(s) s/p RnY Gastric Bypass Today's Metrics: Post-Surgical Weight Loss Date: 11/14/23 Height: 5' 3.5 (161.3 cm) Weight: 238 lb 9.6 oz (108 kg) BMI: 41.60 Weight Change: -4 lbs Total Weight Change: -46.4 lbs % EBWL: 30% Post-op Weight Metrics: Post-Surgical Weight Loss Date: 11/14/23 Height: 5' 3.5 (161.3 cm) Weight: 238 lb 9.6 oz (108 kg) BMI: 41.60 Weight Change: -4 lbs Total Weight Change: -46.4 lbs % EBWL: 30% (From Surgical Weight Loss Tracker) Patient has the following questions: None Reported Pain: Patient rates pain on scale 0-10 as: 0 Exercise Compliance: Exercising: no If yes: Type: 0 Times per week: 0 Min per session: 0 Falls Risk Assessment Patient does take medications which affect BP or mental status Patient does not t have newly prescribed or changed dosage of medications within past 30 days whichaffect BP or mental status Patient has fallen in the past 2 months Patient does t demonstrate unsteady gait Patient uses the following ambulatory assistive devices: cane Patient states the presence of the following traits which increases risk of fall: bad knees Patient is not on home O2 Pre-op Weight Metrics: Labs Completed: no - If NO, patient instructed to get labs drawn today or ROSEY If YES: Labs completed at [facility]? N/A If yes see Labs Tab Labs completed at Non[facility] facility? N/A If yes see Encounters Tab - Orders only - Historical Provider - Date: Completed by: Anne Swanson MA * Mikayla Frazier MD - 11/14/2023 10:00 AM EST [facility] POST-OP WEIGHT LOSS MANAGEMENT PROGRESS NOTE FOLLOW UP HPI, PHYSICAL EXAMINATION & PLAN HPI: Patient here today for follow up for weight loss management following surgical weight loss Weight trend since last visit: lost 4 lb over 1 m stable This patient's excess weight is causing the following co-morbid conditions at this time: DM Plan Physical Examination: Blood pressure (!) 169/83, pulse 89, height 5' 3.5 (1.613 m), weight 238 lb 9.6 oz (108 kg). General: This patient is alert and oriented X3 General: This patient is awake, alert, and oriented, and is in no apparent distress. Extremities: No cyanosis, clubbing or edema/ No calf tenderness/No restrictions of movement, is ambulatory without assistance. Neurological: Intact x 4 extremities, no focal deficits notes. Skin: No rashes or lesions noted. Social History: This patient is unaccompanied for the evaluation today. She does not smoke, and does not drink alcohol. Current Diet This patient s current diet is: off the meal plan and stress eating Her diet contains adequate amounts of protein, adequate amounts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 is alert and oriented X3 General: This patient is awake, alert, and oriented, and is in no apparent distress. Extremities: No cyanosis, clubbing or edema/ No calf tenderness/No restrictions of movement, is ambulatory without assistance. Neurological: Intact x 4 extremities, no focal deficits notes. Skin: No rashes or lesions noted. Social History: This patient is unaccompanied for the evaluation today. She does not smoke, and does not drink alcohol. Current Diet This patient?s current diet is: off the meal plan and stress eating Her diet contains adequate amounts of protein, adequate amounts of healthy fats, adequate amounts of green, leafy vegetables, and adequate amounts of fruits. Her comfort foods include:sweets Current Activity Does not exercise Will start PT Current Eating Behaviors This patients demonstrates the following behaviors as they relate to her eating:eats large portions, eats in response to stress, and eats in response to emotions She eats approximately 3-4 times per day. Her last meal/snack was at 6-8 am/pm. Progress Made Towards Goals: 3 month weight goal: 20 6 month weight goal: 30 12 month weight goal: 40 Plan: S/P bariatric surgery stable Continue current management, continue weight loss program Obesity Continue current management, continue weight loss program Stable Discuss how to meal prep after bariatric surgery Will see psychology for stress eating counseling Stress and stress eating Focus on the meal structure, composition and portion control DM Currently on metformin Denied allergy to victoza She was scare of victoza due to her relative recent dx with cancer of throat It was rather long time ago Will try mounjaro if her insurance covers [x] Protein goal of 1g protein per 1 kg of ideal body weight: 75 grams [x] Patient advised to maintain a food/exercise/behavior diary until next physician visit. Pt to bring the completed diary to next visit Other: Physician Diet Recommendations given to patient See Follow up Section of today's encounter for next visit and additional scheduling orders I spent a total of 20 minutes on the day of the visit discussing/counseling the patient regarding the post operative management listed below. 1. Adherence to nutrient-dense foods,containing sufficient amounts of lean proteins and fibers. Fluid 30 minutes before or after meals. 1 cup is the maximum meal size. 2. Physical activity - aerobic physical activity 150-300 min/wk and strength training 2-3 times per wk. 3.DM Is associated with obesity and weight loss/ weight maintenance is discussed as a treatment option for DM 4. Weight maintenance after bariatric surgery discussed The patient was seen and a full chart review was performed.Clinical documentation is updated and completed.[facility]12-27-2023 Telephone encounter Note* Telephone Encounter - Mikayla Frazier MD - 2023 11:49 AM EST [id number] Miscellaneous Notes* Telephone Encounter - Mikayla Frazier MD - 2023 11:49 AM EST Thank you * Telephone Encounter - Magda Patel RD - 2023 11:29 AM EST Unable to reach pt regarding labs, after multiple attempts. Sending vitamin/mineral letter via mail. * Telephone Encounter - Magda Patel RD - 09/12/2023 11:43 AM EST Second attempt to reach pt regarding labs. Left 2nd VM for pt to return the call and referred pt to previously sent [employer] message. * Telephone Encounter - Magda Patel RD - 09/03/2023 2:27 PM EST [facility] 02/15/2022 JZ 08/21/2023 Vitamin D: 17 (L) Ferritin: 11 (L end NL) H/H and Iron: WNL Called and left VM for pt to return the call. Sent [employer] message. documented in this [facility]12-27-2023 Telephone encounter Note* Telephone Encounter - Magda Patel RD - 2023 11:29 AM EST Unable to reach pt regarding labs, after multiple attempts. Sending vitamin/mineral letter via mail. [facility]12-20-2023 Telephone encounter Note* Telephone Encounter - Magda Patel RD - 09/12/2023 11:43 AM EST Second attempt to reach pt regarding labs. Left 2nd VM for pt to return the call and referred pt to previously sent [employer] message. [place] [id number] Telephone encounter Note* Telephone Encounter - Magda Patel RD - 09/03/2023 2:27 PM EST LSG 02/15/2022 JZ 08/21/2023 Vitamin D: 17 (L) Ferritin: 11 (L end NL) H/H and Iron: WNL Called and left VM for pt to return the call. Sent [employer] message. [place] [id number] History of Present illness Narrative* Mikayla Frazier MD - 08/10/2023 11:30 AM EST [facility] POST-OP WEIGHT LOSS MANAGEMENT PROGRESS NOTE FOLLOW UP HPI, PHYSICAL EXAMINATION & PLAN HPI: Patient here today for follow up for weight loss management following surgical weight loss Weight trend since last visit: gain 2 lb over 1 m This patient's excess weight is causing the following co-morbid conditions at this time: DM Plan Physical Examination: Weight 243 lb 3.2 oz (110 kg). Blood pressure 136/74, pulse 69, height 5' 3.5 (1.613 m), weight 243 lb 3.2 oz (110 kg). General: This patient is alert and oriented X3 General: This patient is awake, alert, and oriented, and is in no apparent distress. Extremities: No cyanosis, clubbing or edema/ No calf tenderness/No restrictions of movement, is ambulatory without assistance. Neurological: Intact x 4 extremities, no focal deficits notes. Skin: No rashes or lesions noted. Social History: This patient is unaccompanied for the evaluation today. She does not smoke, and does not drink alcohol. Current Diet This patient s current diet is: off the meal plan and stress eating Her diet contains adequate amounts of protein, adequate amounts of healthy fats, adequate amounts of green, leafy vegetables, and adequate amounts of fruits. Her comfort foods include:sweets Current Activity Does not exercise Will start PT Current Eating Behaviors This patients demonstrates the following behaviors as they relate to her eating:eats large portions, eats in response to stress, and eats in response to emotions She eats approximately 3-4 times per day. Her last meal/snack was at 6-8 am/pm. Progress Made Towards Goals: 3 month weight goal: 20 6 month weight goal: 30 12 month weight goal: 40 Plan: S/P bariatric surgery stable Continue current management, continue weight loss program Obesity Continue current management, continue weight loss program Stable Discuss how to meal prep after bariatric surgery Will see psychology for stress eating counseling Stress and stress eating Focus on the meal structure, composition and portion control DM Currently on metformin Denied allergy to victoza She was scare of victoza due to her relative recent dx with cancer of throat It was rather long time ago Unable to continue ozempic due to coverage Lost her Medicare B coverage [x] Protein goal of 1g protein per 1 kg of ideal body weight: 75 grams [x] Patient advised to maintain a food/exercise/behavior diary until next physician visit. Pt to bring the completed diary to next visit Other: Physician Diet Recommendations given to patient See Follow up Section of today's encounter for next visit and additional scheduling orders I spent a total of 30 minutes on the day of the visit discussing/counseling the patient regarding the post operative management listed below. 1. Adherence to nutrient-dense foods,containing sufficient amounts of lean proteins and fibers. Fluid 30 minutes before or after meals. 1 cup is the maximum meal size. 2. Physical activity - aerobic physical activity 150-300 min/wk and strength training 2-3 times perwk. 3.DM Is associated with obesity and weight loss/ weight maintenance is discussed as a treatment option for DM 4. Weight maintenance after bariatric surgery discussed 5. Blood work is ordered for next visit in September The patient was seen and a full chart review was performed.Clinical documentation is updated and completed. * Anne Swanson MA - 08/10/2023 11:30 AM EST [facility] ROOMING NOTE POST WEIGHT LOSS SURGERY FOLLOW UP Patient: Blaise Monroe Service Date: 08/10/2023 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 Today's Metrics: Post-Surgical Weight Loss Date: 08/10/23 Height: 5' 3.5 (161.3 cm) Weight: 243 lb 3.2 oz (110 kg) BMI: 42.40 Weight Change: 4.2 lbs Total Weight Change: -41.8 lbs % EBWL: 27% Post-op Weight Metrics: Post-Surgical Weight Loss Date: 08/10/23 Height: 5' 3.5 (161.3 cm) Weight: 243 lb 3.2 oz (110 kg) BMI: 42.40 Weight Change: 4.2 lbs Total Weight Change: -41.8 lbs % EBWL: 27% (From Surgical Weight Loss Tracker) Patient has the following questions: None Reported Pain: Patient rates pain on scale 0-10 as: 0 Exercise Compliance: Exercising: no If yes: Type: none Times per week: 0 Min per session: 0 Falls Risk Assessment Patient does take medications which affect BP or mental status Patient does not t have newly prescribed or changed dosage of medications within past 30 days whichaffect BP or mental status Patient has not fallen in the past 2 months Patient does not t demonstrate unsteady gait Patient uses the following ambulatory assistive devices: cane Patient states the presence of the following traits which increases risk of fall: bad knees Patient is not on home O2 Pre-op Weight Metrics: Labs Completed: no - If NO, patient instructed to get labs drawn today or ROSEY If YES: Labs completed at [facility]? N/A If yes see Labs Tab Labs completed at Non[facility] facility? N/A If yes see Encounters Tab - Orders only - Historical Provider - Date: Completed by: Anne Swanson MA documented in this [facility]11-17-2023 [facility] POST-OP WEIGHT LOSS MANAGEMENT PROGRESS NOTE FOLLOW UP HPI, PHYSICAL EXAMINATION & PLAN HPI: Patient here today for follow up for weight loss management following surgical weight loss Weight trend since last visit: gain 2 lb over 1 m This patient's excess weight is causing the following co-morbid conditions at this time: DM Plan Physical Examination: Weight 243 lb 3.2 oz (110 kg). Blood pressure 136/74, pulse 69, height 5' 3.5 (1.613 m), weight 243 lb 3.2 oz (110 kg). General: This patient is alert and oriented X3 General: This patient is awake, alert, and oriented, and is in no apparent distress. Extremities: No cyanosis, clubbing or edema/ No calf tenderness/No restrictions of movement, is ambulatory without assistance. Neurological: Intact x 4 extremities, no focal deficits notes. Skin: No rashes or lesions noted. Social History: This patient is unaccompanied for the evaluation today. She does not smoke, and does not drink alcohol. Current Diet This patient?s current diet is: off the meal plan and stress eating Her diet contains adequate amounts of protein, adequate amounts of healthy fats, adequate amounts of green, leafy vegetables, and adequate amounts of fruits. Her comfort foods include:sweets Current Activity Does not exercise Will start PT Current Eating Behaviors This patients demonstrates the following behaviors as they relate to her eating:eats large portions, eats in response to stress, and eats in response to emotions She eats approximately 3-4 times per day. Her last meal/snack was at 6-8 am/pm. Progress Made Towards Goals: 3 month weight goal: 20 6 month weight goal: 30 12 month weight goal: 40 Plan: S/P bariatric surgery stable Continue current management, continue weight loss program Obesity Continue current management, continue weight loss program Stable Discuss how to meal prep after bariatric surgery Will see psychology for stress eating counseling Stress and stress eating Focus on the meal structure, composition and portion control DM Currently on metformin Denied allergy to victoza She was scare of victoza due to her relative recent dx with cancer of throat It was rather long time ago Unable to continue ozempic due to coverage Lost her Medicare B coverage [x] Protein goal of 1g protein per 1 kg of ideal body weight: 75 grams [x] Patient advised to maintain a food/exercise/behavior diary until next physician visit. Pt to bring the completed diary to next visit Other: Physician Diet Recommendations given to patient See Follow up Section of today's encounter for next visit and additional scheduling orders I spent a total of 30 minutes on the day of the visit discussing/counseling the patient regarding the post operative management listed below. 1. Adherence to nutrient-dense foods,containing sufficient amounts of lean proteins and fibers. Fluid 30 minutes before or after meals. 1 cup is the maximum meal size. 2. Physical activity - aerobic physical activity 150-300 min/wk and strength training 2-3 times per wk. 3.DM Is associated with obesity and weight loss/ weight maintenance is discussed as a treatment option for DM 4. Weight maintenance after bariatric surgery discussed 5. Blood work is ordered for next visit in September The patient was seen and a full chart review was performed.Clinical documentation is updated and completed.[facility]11-17-2023 Note Addended by: JOSE VALDES on: 08/21/2023 10:56 AM Modules accepted: [facility]09-18-2023 Telephone encounter Note* Telephone Encounter - ALIE Shafer - 06/11/2023 11:01 AM EDT Signed, thanks [facility] Phone: [phone]) 366-956409-18-2023 Miscellaneous Notes* Telephone Encounter - ALIE Shafer - 06/11/2023 11:01 AM EDT Signed, thanks * Telephone Encounter - Magda Patel RD - 06/11/2023 10:47 AM EDT Please see MyChart communication between pt and this RD. Pt was only taking 800 international units per day of Vitamin D3. Pt to begin 4000 international units per day Vitamin D3 (OTC). Will monitor labs in 3 months. Orders pending. Please sign. Thank you! * Telephone Encounter - Magda Patel RD - 06/06/2023 8:58 AM EDT LSG 02/15/2022 JZ 06/05/2023 Vitamin D: 24 (L) Sent [employer] message regarding low Vitamin D. documented in this [facility]09-18-2023 Telephone encounter Note* Telephone Encounter - Magda Patel RD - 06/11/2023 10:47 AM EDT Please see MyChart communication between pt and this RD. Pt was only taking 800 international units per day of Vitamin D3. Pt to begin 4000 international units per day Vitamin D3 (OTC). Will monitor labs in 3 months. Orders pending. Please sign. Thank you! [id number] History of Present illness Narrative* Mikayla Frazier MD - 06/06/2023 1:40 PM EDT [facility] POST-OP WEIGHT LOSS MANAGEMENT PROGRESS NOTE FOLLOW UP HPI, PHYSICAL EXAMINATION & PLAN HPI: Patient here today for follow up for weight loss management following surgical weight loss Weight trend since last visit: stable/unchanged This patient's excess weight is causing the following co-morbid conditions at this time: DM Plan Physical Examination: BP (!) 156/78 Pulse 79 Resp 18 Ht 5' 3.5 (1.613 m) Wt 241 lb (109 kg) BMI 42.02 kg/m General: This patient is alert and oriented X3 General: This patient is awake, alert, and oriented, and is in no apparent distress. Extremities: No cyanosis, clubbing or edema/ No calf tenderness/No restrictions of movement, is ambulatory without assistance. Neurological: Intact x 4 extremities, no focal deficits notes. Skin: No rashes or lesions noted. Social History: This patient is unaccompanied for the evaluation today. She does not smoke, and does not drink alcohol. Current Diet This patient s current diet is: off the meal plan and stress eating Her diet contains adequate amounts of protein, adequate amounts of healthy fats, adequate amounts of green, leafy vegetables, and adequate amounts of fruits. Her comfort foods include:sweets Current Activity Does not exercise Will start PT Current Eating Behaviors This patients demonstrates the following behaviors as they relate to her eating:eats large portions, eats in response to stress, and eats in response to emotions She eats approximately 3-4 times per day. Her last meal/snack was at 6-8 am/pm. Progress Made Towards Goals: 3 month weight goal: 20 6 month weight goal: 30 12 month weight goal: 40 Plan: S/P bariatric surgery stable Continue current management, continue weight loss program Obesity Continue current management, continue weight loss program Stable Discuss how to meal prep after bariatric surgery Will see psychology for stress eating counseling Stress and stress eating Focus on the meal structure, composition and portion control DM Currently on metformin Denied allergy to victoza She was scare of victoza due to her relative recent dx with cancer of throat It was rather long time ago No problem with ozempic 0.25 New dose 0.5 [x] Protein goal of 1g protein per 1 kg of ideal body weight: 75 grams [x] Patient advised to maintain a food/exercise/behavior diary until next physician visit. Pt to bring the completed diary to next visit Other: Physician Diet Recommendations given to patient See Follow up Section of today's encounter for next visit and additional scheduling orders I spent a total of 20 minutes on the day of the visit discussing/counseling the patient regarding the post operative management listed below. 1. Adherence to nutrient-dense foods,containing sufficient amounts of lean proteins and fibers. Fluid 30 minutes before or after meals. 1 cup is the maximum meal size. 2. Physical activity - aerobic physical activity 150-300 min/wk and strength training 2-3 times perwk. 3.DM Is associated with obesity and weight loss/ weight maintenance is discussed as a treatment option for DM 4. Weight maintenance after bariatric surgery discussed The patient was seen and a full chart review was performed.Clinical documentation is updated and completed. * Chetna Kamara LPN - 06/06/2023 1:40 PM EDT [facility] ROOMING NOTE POST WEIGHT LOSS SURGERY WEIGHT LOSS MANAGEMENT Patient: Blaise Monroe Date of : 1955 Service Date: 06/06/2023 This patient is alone for the evaluation today. Reason patient is here today: POP FU. Date of Weight Loss Surgery: 01-23-22 Procedure Performed: Laparoscopic Sleeve Gastrectomy Initial Weight: @FLOWLAST([id number])@ Today's weight has decreased from the last visit Pain: Patient rates pain on scale 0-10 as: 0 Falls Risk Assessment Patient does not take medications which affect BP or mental status Patient does not have newly prescribed or changed dosage of medications within past 30 days which affect BP or mental status Patient has not fallen in the past 2 months Patient does not demonstrate unsteady gait Patient uses the following ambulatory assistive devices: none Patient states the presence of the following traits which increases risk of fall: Weak uses a cane recently in the hospital Patient is moderate risk for falls. Patient is not on home O2 Post-op Weight Metrics: %EBWL: % EBWL: 20% Weight Change Since Last Visit: Weight Change: -2 lbs Weight Change from Highest Pre-op Weight: Total Weight Change: -26.2 lbs Completed by: Chetna Kamara LPN documented in this [facility]09-13-2023 Telephone encounter Note* Telephone Encounter - Magda Patel RD - 06/06/2023 8:58 AM EDT TIN 02/15/2022 JAXON 06/05/2023 Vitamin D: 24 (L) Sent MyChart message regarding low Vitamin D. [facility] [id number] Note* Addendum Note - Eneida Delta - 06/05/2023 11:52 AM EDTAddended by: ENEIDA DE LA ROSA on: 06/05/2023 11:52 AM Modules accepted: Orders [id number] Miscellaneous Notes* Addendum Note - Eneida Delta - 06/05/2023 11:52 AM EDTAddended by: ENEIDA DE LA ROSA on: 06/05/2023 11:52 AM Modules accepted: Orders * Telephone Encounter - ALIE Shafer - 04/03/2023 1:42 PM EDT Signed, thanks * Telephone Encounter - Naomi Crowder RD - 04/03/2023 12:45 PM EDT Spoke to patient over [employer] regarding labs. Discussed Vitamin D level with patient. Patient reported she was taking 1,[address] recommended patient take 4,000 IU Vitamin D once daily and patient was agreeable. Asked about iron, as hemoglobin came back low. Patient does report to taking MVI with iron daily, and no additional iron at this time. List of iron-rich foods was sent to patient, and patient is to increase these foods in diet to help with low hemoglobin. Medication list updated. Orders pending to recheck labs in 3 months. * Telephone Encounter - Naomi Crowder RD - 04/02/2023 11:34 AM EDT Attempted to call patient regarding labs, however went to voicemail and mailbox is full. Will send a My[employer] message. * Telephone Encounter - Naomi Crowder RD - 03/30/2023 8:38 AM EDT LSG 02/15/2022 JZ Labs (03/29/23) Hgb: 11.4 (L) --note: Hct WNL and ferritin WNL. Iron from 02/23/23 WNL. Vitamin D: 19 (L) Sending My[employer] message to patient to review labs. * Telephone Encounter - Naomi Crowder RD - 03/30/2023 8:38 AM EDT ----- Message from ALIE Shafer sent at 03/29/2023 4:00 PM EDT ----- Keturah/Naomi- please review in MB absence. Thanks! documented in this [facility]09-11-2023 Hospital Discharge instructions Patient Education 06/03/2023 22:34:46 High Blood Pressure, Established, Out of Control Uncontrolled High Blood Pressure (Established) Your blood pressure was unusually high today. This can occur if you ve missed doses of your blood pressure medicine. Or it can happen if you are taking other medicines. These include some asthma inhalers, decongestants, diet pills, and street drugs like cocaine and amphetamine. Other causes include: Weight gain More salt in your diet Smoking Caffeine Your blood pressure can also rise if you are emotionally upset or in intense pain. It may go back to normal after a period of rest. Blood pressure measurements are given as 2 numbers. Systolic blood pressure is the upper number. This is the pressure when the heart contracts. Diastolic blood pressure is the lower number. This is the pressure when the heart relaxes between beats. You will see your blood pressure readings written together. For example, a person with a systolic pressure of 118 and a diastolic pressure of 78 will have 118/78 written in the medical record. To be high blood pressure, the numbers must be higher when tested over a period of time. Blood pressure is categorized as normal, elevated, or stage 1 or stage 2 high blood pressure: Normal blood pressure is systolic of less than 120 and diastolic of less than 80 (120/80) Elevated blood pressure is systolic of 120 to 129 and diastolic less than 80 Stage 1 high blood pressure is systolic is 130 to 139 or diastolic between 80 to 89 Stage 2 high blood pressure is when systolic is 140 or higher or the diastolic is 90 or higher Uncontrolled high blood pressure can cause serious health problems. It raises your risk for heart attack, stroke, and heart failure. In general, if you have high blood pressure, keeping your blood pressure below 130/80 mmHg may help prevent these problems. Your healthcare provider may prescribe medicine to help control blood pressure if lifestyle changes are not enough. Home care It s important to take steps to lower your blood pressure. If you are taking blood pressure medicine, the guidelines below may help you need less or no medicines in the future. Start a weight-loss program if you are overweight. Cut back on the amount of salt in your diet: oAvoid high-salt foods like olives, pickles, smoked meats, and salted potato chips. oDon t add salt to your food at the table. oUse only small amounts of salt when cooking. Start an exercise program. Talk with your healthcare provider about what exercise program is best for you. It doesn t have to be difficult. Even brisk walking for 20 minutes 3 times a week is a good form of exercise. Avoid medicines that stimulates the heart. This includes many jhts-jsm-rrfpvix cold and sinus decongestant pills and sprays, as well as diet pills. Check the warnings about high blood pressure on thelabel. Before purchasing any kqft-oen-tfwcfph medicines or supplements, always ask the pharmacist about the product's potential interaction with your high blood pressure and your medicines. Stimulants such as amphetamine or cocaine could be lethal for someone with high blood pressure. Never take these. Limit how much caffeine you drink. Or switch to noncaffeinated beverages. Stop smoking. If you are a long-time smoker, this can be hard. Enroll in a stop- smoking program to make it more likely that you will succeed. Talk with your provider about ways to quit. Learn how to handle stress better. This is an important part of any program to lower blood pressure. Learn ways to relax. These include meditation, yoga, and biofeedback. If medicines were prescribed, take them exactly as directed. Missing doses may cause your blood pressure to get out of control. If you miss a dose or doses of your medicines, check with your healthcare provider or pharmacist about what to do. Consider buying an automatic blood pressure machine. Your provider may recommend a certain type. You can get one of these at most pharmacies. Measure your blood pressure twice a day, in the morning, and in the late afternoon. Keep a written record of your home blood pressure readings and take the record to your medical appointments. Here are some additional guidelines on home blood pressure monitoring from the [employer] [employer]. Don't smoke or drink coffee for 30 minutes Go to the bathroom before the test. Relax for 5 minutes before taking the measurement. Sit correctly. Be sure your back is supported. Don't sit on a couch or soft chair. Uncross your feet and place them flat on the floor. Place your arm on a solid, flat surface like a table with the upper arm at heart level. Make certain the middle of the cuff is directly above the bend of the elbow.Check the monitor's instruction manual for an illustration. Take multiple readings. When you measure, take 2 or 3 readings one minute apart and record all of the results. Take your blood pressure at the same time every day, or as your healthcare provider recommends. Record the date, time, and blood pressure reading. Take the record with you to your next appointment. If your blood pressure monitor has a built-in memory, simply take the monitor with you to your next appointment. Call your provider if you have several high readings. Don't be frightened by a single high reading,but if you get several high readings, check in with your healthcare provider. Note: When blood pressure reaches a systolic (top number) of 180 or higher or a diastolic (bottom number) of 110 or higher, emergency medical treatment is required. Call your healthcare provider immediately. Follow-up care Regular visits to your own healthcare provider for blood pressure and medicine checks are an important part of your care. Make a follow-up appointment as directed. Bring the record of your home bloodpressure readings to the appointment. When to seek medical advice Call your healthcare provider right away if any of these occur: Blood pressure reaches a systolic (top number) of 180 or higher or diastolic (bottom number) of 110or higher, emergency medical treatment is required. Chest, arm, shoulder, neck, or upper back pain Shortness of breath Severe headache Throbbing or rushing sound in the ears Nosebleed Extreme drowsiness, confusion, or fainting Dizziness or dizziness with spinning sensation (vertigo) Weakness in an arm or leg or on one side of the face Trouble speaking or seeing [id number] [employer] [place] [address]. All rights reserved. This information is not intended as a substitute for professional medical care. Always follow yourhealthcare professional's instructions. 06/03/2023 22:34:42 Chest Pain, Uncertain Cause Uncertain Causes of Chest Pain Chest pain can happen for a number of reasons. Sometimes the cause can't be determined. If your condition does not seem serious, and your pain does not appear to be coming from your heart, your healthcare provider may recommend watching it closely. Sometimes the signs of a serious problem take moretime to appear. Many problems not related to your heart can cause chest pain. These include: Musculoskeletal. Costochondritis is an inflammation of the tissues around the ribs that can occur from trauma or overuse injuries, or a strain of the muscles of the chest wall Respiratory. Pneumonia, collapsed lung (pneumothorax), or inflammation of the lining of the chest and lungs (pleurisy) Gastrointestinal. Esophageal reflux, heartburn, ulcers, or gallbladder disease Anxiety and panic disorders Nerve compression and inflammation Rare miscellaneous problems such as aortic aneurysm (a swelling of the large artery coming out of the heart) or pulmonary embolism (a blood clot in the lungs) Home care After your visit, follow these recommendations: Rest today and avoid strenuous activity. Take any prescribed medicine as directed. Be aware of any recurrent chest pain and notice any changes Follow-up care Follow up with your healthcare provider if you do not start to feel better within 24 hours, or as advised. Call 911 Call 911 if any of these occur: A change in the type of pain: if it feels different, becomes more severe, lasts longer, or begins to spread into your shoulder, arm, neck, jaw or back Shortness of breath or increased pain with breathing Weakness, dizziness, or fainting Rapid heart beat Crushing sensation in your chest When to seek medical advice Call your healthcare provider right away if any of the following occur: Cough with dark colored sputum (phlegm) or blood Fever of 100.4 F (38 C) or higher, or as directed by your healthcare provider Swelling, pain or redness in one leg [id number] [employer] [place] [address], [place] [address]. All rights reserved. This information is not intended as a substitute for professional medical care. Always follow yourhealthcare professional's instructions. Follow Up Care 06/03/2023 19:26:38 With:ELISSA DIAL DO Address: [address] [place], [place] [address] [place] [address]- When:2-4 days [facility] 09-10-2023 Note Discharge Instructions Thank you for allowing [facility] to assist you with your healthcare needs. The following is importantdischarge information regarding your hospital visit. Diagnosis from Today's Visit Chest pain Chest pain Hypertension What to Do Next Instructions from Your Care Team No qualifying data available. Post Acute Orders No qualifying data available. You Need to Schedule the Following Appointments Follow Up with ELISSA DIAL DO When Within 2-4 days Where: [facility] [place], [place] [address]- Allergies Darvocet Tape Xarelto Zestril (Hives) clindamycin metoprolol (Hives) Medications Please ask your primary doctor or pharmacist before taking any other medication not listed, including over the counter drugs, herbal medications, vitamins and or supplements as they may interact withyour home medications. 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 Unchanged fluticasone-salmeterol (Wixela Inhub 250 mcg-50 mcg inhalation powder) 1 puff(s) by inhalation Two (2) times a day Unchanged gabapentin (Neurontin 100 mg oral capsule) 1 cap by mouth Three (3) times a day Unchanged glipiZIDE (glipiZIDE 5 mg oral tablet) 1 tab(s) by mouth Once a day before a meal Unchanged losartan (losartan 25 mg oral tablet) 1 tab(s) by mouth Once a day Unchanged magnesium oxide (magnesium oxide 400 mg oral tablet) 1 tab(s) by mouth Once a day Unchanged meclizine (meclizine 25 mg oral tablet) 1 tab(s) by mouth Two (2) times a day as needed for as needed for dizziness Unchanged metFORMIN (metFORMIN 500 mg oral tablet (IR)) 1 tab(s) by mouth Two (2) times a day Unchanged multivitamin with minerals (Flintstones Complete oral tablet, chewable) 1 tab(s) by mouth Once a day Unchanged omeprazole (PriLOSEC OTC 20 mg oral delayed release tablet) 1 tab(s) by mouth Two (2) times a day Unchanged ondansetron (Zofran 8 mg oral tablet) 1 tab(s) by mouth Every 8 hours as needed for Nausea/Vomiting Unchanged potassium chloride (Potassium Chloride (Eqv-K-Tab) 20 mEq oral tablet, extended release) 1 tab(s) by mouth Two (2) times a day Take with food. Unchanged rOPINIRole (rOPINIRole 3 mg oral tablet) 3 tab(s) by mouth Daily at bedtime Unchanged semaglutide (Ozempic 2 mg/ 3 mL (0.25 mg or 0.5 mg dose) subcutaneous solution) 0.25 Milligram Subcutaneous Every week rotate injection sites Unchanged sertraline (Zoloft 100 mg oral tablet) 2 tab(s) by mouth Once a day (in the morning) Unchanged traMADol (traMADol 50 mg oral tablet) 1 tab(s) by mouth Every 6 hours as needed for for pain Unchanged warfarin (warfarin 2 mg oral tablet) 1 tab(s) by mouth Once a day Unchanged warfarin (warfarin 3 mg oral tablet) 1 tab(s) by mouth Every day Please take this list to your next doctor s visit. Bring all medications you take, including over the counter medications, herbals and other supplements with you to your doctor s visit. Patients and families are reminded to discard old lists and to update any records with all medication providers or retail pharmacies. Education Materials Uncontrolled High Blood Pressure (Established) Your blood pressure was unusually high today. This can occur if you ve missed doses of your blood pressure medicine. Or it can happen if you are taking other medicines. These include some asthma inhalers, decongestants, diet pills, and street drugs like cocaine and amphetamine. Other causes include: Weight gain More salt in your diet Smoking Caffeine Your blood pressure can also rise if you are emotionally upset or in intense pain. It may go back to normal after a period of rest. Blood pressure measurements are given as 2 numbers. Systolic blood pressure is the upper number. This is the pressure when the heart contracts. Diastolic blood pressure is the lower number. This is the pressure when the heart relaxes between beats. You will see your blood pressure readings written together. For example, a person with a systolic pressure of 118 and a diastolic pressure of 78 will have 118/78 written in the medical record. To be high blood pressure, the numbers must be higher when tested over a period of time. Blood pressure is categorized as normal, elevated, or stage 1 or stage 2 high blood pressure: Normal blood pressure is systolic of less than 120 and diastolic of less than 80 (120/80) Elevated blood pressure is systolic of 120 to 129 and diastolic less than 80 Stage 1 high blood pressure is systolic is 130 to 139 or diastolic between 80 to 89 Stage 2 high blood pressure is when systolic is 140 or higher or the diastolic is 90 or higher Uncontrolled high blood pressure can cause serious health problems. It raises your risk for heart attack, stroke, and heart failure. In general, if you have high blood pressure, keeping your blood pressure below 130/80 mmHg may help prevent these problems. Your healthcare provider may prescribe medicine to help control blood pressure if lifestyle changes are not enough. Home care It s important to take steps to lower your blood pressure. If you are taking blood pressure medicine, the guidelines below may help you need less or no medicines in the future. Start a weight-loss program if you are overweight. Cut back on the amount of salt in your diet: oAvoid high-salt foods like olives, pickles, smoked meats, and salted potato chips. oDon t add salt to your food at the table. oUse only small amounts of salt when cooking. Start an exercise program. Talk with your healthcare provider about what exercise program is best for you. It doesn t have to be difficult. Even brisk walking for 20 minutes 3 times a week is a good form of exercise. Avoid medicines that stimulates the heart. This includes many nnss-vis-zvcetwa cold and sinus decongestant pills and sprays, as well as diet pills. Check the warnings about high blood pressure on thelabel. Before purchasing any qpkf-kwd-jcnwxcw medicines or supplements, always ask the pharmacist about the product's potential interaction with your high blood pressure and your medicines. Stimulants such as amphetamine or cocaine could be lethal for someone with high blood pressure. Never take these. Limit how much caffeine you drink. Or switch to noncaffeinated beverages. Stop smoking. If you are a long-time smoker, this can be hard. Enroll in a stop- smoking program to make it more likely that you will succeed. Talk with your provider about ways to quit. Learn how to handle stress better. This is an important part of any program to lower blood pressure. Learn ways to relax. These include meditation, yoga, and biofeedback. If medicines were prescribed, take them exactly as directed. Missing doses may cause your blood pressure to get out of control. If you miss a dose or doses of your medicines, check with your healthcare provider or pharmacist about what to do. Consider buying an automatic blood pressure machine. Your provider may recommend a certain type. You can get one of these at most pharmacies. Measure your blood pressure twice a day, in the morning, and in the late afternoon. Keep a written record of your home blood pressure readings and take the record to your medical appointments. Here are some additional guidelines on home blood pressure monitoring from the [employer]. Don't smoke or drink coffee for 30 minutes Go to the bathroom before the test. Relax for 5 minutes before taking the measurement. Sit correctly. Be sure your back is supported. Don't sit on a couch or soft chair. Uncross your feet and place them flat on the floor. Place your arm on a solid, flat surface like a table with the upper arm at heart level. Make certain the middle of the cuff is directly above the bend of the elbow.Check the monitor's instruction manual for an illustration. Take multiple readings. When you measure, take 2 or 3 readings one minute apart and record all of the results. Take your blood pressure at the same time every day, or as your healthcare provider recommends. Record the date, time, and blood pressure reading. Take the record with you to your next appointment. If your blood pressure monitor has a built-in memory, simply take the monitor with you to your next appointment. Call your provider if you have several high readings. Don't be frightened by a single high reading,but if you get several high readings, check in with your healthcare provider. Note: When blood pressure reaches a systolic (top number) of 180 or higher or a diastolic (bottom number) of 110 or higher, emergency medical treatment is required. Call your healthcare provider immediately. Follow-up care Regular visits to your own healthcare provider for blood pressure and medicine checks are an important part of your care. Make a follow-up appointment as directed. Bring the record of your home bloodpressure readings to the appointment. When to seek medical advice Call your healthcare provider right away if any of these occur: Blood pressure reaches a systolic (top number) of 180 or higher or diastolic (bottom number) of 110or higher, emergency medical treatment is required. Chest, arm, shoulder, neck, or upper back pain Shortness of breath Severe headache Throbbing or rushing sound in the ears Nosebleed Extreme drowsiness, confusion, or fainting Dizziness or dizziness with spinning sensation (vertigo) Weakness in an arm or leg or on one side of the face Trouble speaking or seeing [id number] [employer] [place], [place] [id number]. All rights reserved. This information is not intended as a substitute for professional medical care. Always follow yourhealthcare professional's instructions. Uncertain Causes of Chest Pain Chest pain can happen for a number of reasons. Sometimes the cause can't be determined. If your condition does not seem serious, and your pain does not appear to be coming from your heart, your healthcare provider may recommend watching it closely. Sometimes the signs of a serious problem take moretime to appear. Many problems not related to your heart can cause chest pain. These include: Musculoskeletal. Costochondritis is an inflammation of the tissues around the ribs that can occur from trauma or overuse injuries, or a strain of the muscles of the chest wall Respiratory. Pneumonia, collapsed lung (pneumothorax), or inflammation of the lining of the chest and lungs (pleurisy) Gastrointestinal. Esophageal reflux, heartburn, ulcers, or gallbladder disease Anxiety and panic disorders Nerve compression and inflammation Rare miscellaneous problems such as aortic aneurysm (a swelling of the large artery coming out of the heart) or pulmonary embolism (a blood clot in the lungs) Home care After your visit, follow these recommendations: Rest today and avoid strenuous activity. Take any prescribed medicine as directed. Be aware of any recurrent chest pain and notice any changes Follow-up care Follow up with your healthcare provider if you do not start to feel better within 24 hours, or as advised. Call 911 Call 911 if any of these occur: A change in the type of pain: if it feels different, becomes more severe, lasts longer, or begins to spread into your shoulder, arm, neck, jaw or back Shortness of breath or increased pain with breathing Weakness, dizziness, or fainting Rapid heart beat Crushing sensation in your chest When to seek medical advice Call your healthcare provider right away if any of the following occur: Cough with dark colored sputum (phlegm) or blood Fever of 100.4 F (38 C) or higher, or as directed by your healthcare provider Swelling, pain or redness in one leg [id number] [employer]. [address] [place] [address]. All rights reserved. This information is not intended as a substitute for professional medical care. Always follow yourhealthcare professional's instructions. Additional Information VACCINATE! IT SAVES LIVES! Members of the community who have not yet received the COVID-19 vaccine and would like to receive it can visit one of [facility] vaccine clinics. There are many vaccine clinic locations within the [facility]. For locations and available times, please visit www.gettheshot.coronavirus.[place].gov/. It is important to note that some COVID mobile vaccine clinics are held outdoors and may be canceled in rainy or stormy conditions. To learn more about pediatric vaccinations (ages 5-11), we invite you to visit the [facility] webpage. [email or web address]/[email or web address] learn more about the COVID-19 vaccine, we invite you to visit the CDC website for a list of frequently asked questions. https://www.cdc.gov/coronavirus/2019-ncov/vaccines/faq.html [facility] Patient Portal Access Instructions: Stay connected with your healthcare team and access your personal medical information anytime with the [facility] Patient Portal. If you would like a full copy of your medical records please contact the [facility] Medical Records Department Sunday through Sunday between 8a.m. and 4:30p.m. Please follow the directions below to access the portal: 1.Access the email account you provided upon registration to the [facility].2.Look for an invitation email from [facility].3.Open the email and access the invitation link: Accept [facility]itation to [facility].Fill in the required milton to create your account. Sign into [email or web address] with your username and password that you created in the above steps to stay up to date. You can then view a summary of results, a summary of your visits, and the ability to download your summaries to your computer or send the information securely to a physician. Remember that your healthcare information is confidential, so carefully consider who you will allow to register on the [facility] Patient Portal for access to your information. You can also access the [facility] Patient Portal on the M[employer] robert. Simply click on Health Records under [employer] and then click on the [facility] logo. HOW TO SAFELY DISPOSE OF PRESCRIPTION MEDICATIONS Please use one of the following methods to safely dispose of your unused medications. 1.Use a drug disposal kit: the drug disposal pouch allows you to safely discard your old and unuseddrugs. Ask your nurse to give you one when you are discharged.2.Visit a local take-back location: Many local pharmacies and police departments have programs that collect old and unwanted prescriptiondrugs. Call your local pharmacy or go to http://bit.Post-A-Vox/8R8Eb3u to find one close to you.3.Make use of household items: Use cat litter or old coffee grounds to dispose medications if other options arenot available. Mix your drugs with these household products, seal them in an airtight container andthrow it into the garbage. Call [facility]: [phone] to be sure your drugs can be disposed of in this way. Some medicines may require a different approach.4.Never flush your medications down the toilet. IF YOU HAVE BEEN PRESCRIBED AN OPIOIDS FOR PAIN If you have been prescribed an opioid (such as hydrocodone, oxycodone or morphine), it is critical to understand the possible side effects and risks of opioid pain medications. Even when taken as directed, opioids can have several side effects including: Tolerance, meaning you might need to take more of a medication for the same pain relief. Nausea, vomiting and/or constipation. Sleepiness, dizziness, dry mouth, confusion, depression or itching. Physical dependence, meaning you have withdrawal symptoms when a medication is stopped ? this can develop within a few days. KNOW YOUR RESPONSIBILITIES It is important to know exactly how much and how often to take the opioid pain medications you are prescribed. Never take opioids in higher amounts or more often than prescribed. Do not combine opioids with alcohol or other drugs that cause drowsiness, such as benzodiazepines, also known as benzos,including diazepam and alprazolam, muscle relaxants or sleep aids. Never sell or share prescriptionopioids. This is illegal. Store opioids in a secure place and out of reach of others (including children, family, friends and visitors). The last page(s) of this document has been signed and retained as a CHART COPY Signatures Patient Education Materials High Blood Pressure, Established, Out of Control Chest Pain, Uncertain Cause Medication Leaflets My discharge plan and instructions have been reviewed and explained to me and I,HEAVEN MONROE understand my current condition and have read and understand these discharge instructions. I have received a written copy of the plan/instructions. If I have questions, I am aware that I should contactmy doctor. 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 HISTORY: ORDERING SYSTEM PROVIDED HISTORY: Reason for Exam: Chest Pain FINDINGS: Stable cardiomediastinal silhouette. No pleural effusion or pneumothorax. No focal consolidation. No acute osseous abnormality. Surgical clips project over the upper abdomen. IMPRESSION: No evidence of an acute cardiopulmonary process. I have reviewed the resident's preliminary report and agree with findings and impression. Interpreted by: Alex Dowling Preliminary Report By: Ricardo Lewis Electronically signed By Alex Dowling Dictated Date: 06/03/2023 8:33:45 PM Prelim Date: 06/03/2023 8:37:43 PM Sign Date: 06/03/2023 8:41:58 PM [facility]ing [facility] Note Sinus rhythm Baseline wander in lead(s) II Electronic Signature: KUSUM SALDIVAR MD 06/03/2023 22:08:[address] [place] [address] 09-08-2023 Hospital Discharge instructions Patient Education 06/01/2023 13:57:23 Benign Positional Vertigo Benign Positional Vertigo Vertigo is the feeling that you or your surroundings are moving when they are not. Benign positional vertigo is the most common form of vertigo. This is usually a harmless condition (benign). This condition is positional. This means that symptoms are triggered by certain movements and positions. This condition can be dangerous if it occurs while you are doing something that could cause harm toyou or others. This includes activities such as driving or operating machinery. What are the causes? In many cases, the cause of this condition is not known. It may be caused by a disturbance in an area of the inner ear that helps your brain to sense movement and balance. This disturbance can be caused by: Viral infection (labyrinthitis). Head injury. Repetitive motion, such as jumping, dancing, or running. What increases the risk? You are more likely to develop this condition if: You are a woman. You are 50 years of age or older. What are the signs or symptoms? Symptoms of this condition usually happen when you move your head or your eyes in different directions. Symptoms may start suddenly, and usually last for less than a minute. They include: Loss of balance and falling. Feeling like you are spinning or moving. Feeling like your surroundings are spinning or moving. Nausea and vomiting. Blurred vision. Dizziness. Involuntary eye movement (nystagmus). Symptoms can be mild and cause only minor problems, or they can be severe and interfere with daily life. Episodes of benign positional vertigo may return (recur) over time. Symptoms may improve over time. How is this diagnosed? This condition may be diagnosed based on: Your medical history. Physical exam of the head, neck, and ears. Tests, such as: ?MRI. ?CT scan. ?Eye movement tests. Your health care provider may ask you to change positions quickly while he or she watches you for symptoms of benign positional vertigo, such as nystagmus. Eye movement may be tested with a variety of exams that are designed to evaluate or stimulate vertigo. ?An electroencephalogram (EEG). This records electrical activity in your brain. ?Hearing tests. You may be referred to a health care provider who specializes in ear, nose, and throat (ENT) problems (marine photographer) or a provider who specializes in disorders of the nervous system (neurologist). How is this treated? This condition may be treated in a session in which your health care provider moves your head in specific positions to adjust your inner ear back to normal. Treatment for this condition may take several sessions. Surgery may be needed in severe cases, but this is rare. In some cases, benign positional vertigo may resolve on its own in 2 4 weeks. Follow these instructions at home: Safety Move slowly. Avoid sudden body or head movements or certain positions, as told by your health care provider. Avoid driving until your health care provider says it is safe for you to do so. Avoid operating heavy machinery until your health care provider says it is safe for you to do so. Avoid doing any tasks that would be dangerous to you or others if vertigo occurs. If you have trouble walking or keeping your balance, try using a cane for stability. If you feel dizzy or unstable, sit down right away. Return to your normal activities as told by your health care provider. Ask your health care provider what activities are safe for you. General instructions Take gaap-ovc-xpaxwcw and prescription medicines only as told by your health care provider. Drink enough fluid to keep your urine pale yellow. Keep all follow-up visits as told by your health care provider. This is important. Contact a health care provider if: You have a fever. Your condition gets worse or you develop new symptoms. Your family or friends notice any behavioral changes. You have nausea or vomiting that gets worse. You have numbness or a pins and needles sensation. Get help right away if you: Have difficulty speaking or moving. Are always dizzy. Faint. Develop severe headaches. Have weakness in your legs or arms. Have changes in your hearing or vision. Develop a stiff neck. Develop sensitivity to light. Summary Vertigo is the feeling that you or your surroundings are moving when they are not. Benign positional vertigo is the most common form of vertigo. The cause of this condition is not known. It may be caused by a disturbance in an area of the innerear that helps your brain to sense movement and balance. Symptoms include loss of balance and falling, feeling that you or your surroundings are moving, nausea and vomiting, and blurred vision. This condition can be diagnosed based on symptoms, physical exam, and other tests, such as MRI, CT scan, eye movement tests, and hearing tests. Follow safety instructions as told by your health care provider. You will also be told when to contact your health care provider in case of problems. This information is not intended to replace advice given to you by your health care provider. Make sure you discuss any questions you have with your health care provider. Document Released: 06/18/2007 Document Revised: 02/19/2019 Document Reviewed: 02/19/2019 [employer] Patient Education 2020 VCV. 06/01/2023 13:57:14 Upper Respiratory Infection, Adult, Mkop-fd-Jebs Upper Respiratory Infection, Adult An upper respiratory infection (URI) affects the nose, throat, and upper air passages. URIs are caused by germs (viruses). The most common type of URI is often called the common cold. Medicines cannot cure URIs, but you can do things at home to relieve your symptoms. URIs usually get better within 7 10 days. Follow these instructions at home: Activity Rest as needed. If you have a fever, stay home from work or school until your fever is gone, or until your doctor says you may return to work or school. ?You should stay home until you cannot spread the infection anymore (you are not contagious). ?Your doctor may have you wear a face mask so you have less risk of spreading the infection. Relieving symptoms Gargle with a salt-water mixture 3 4 times a day or as needed. To make a salt- water mixture, completely dissolve 1 tsp of salt in 1 cup of warm water. Use a cool-mist humidifier to add moisture to the air. This can help you breathe more easily. Eating and drinking Drink enough fluid to keep your pee (urine) pale yellow. Eat soups and other clear broths. General instructions Take jmxv-icc-jpznpjg and prescription medicines only as told by your doctor. These include cold medicines, fever reducers, and cough suppressants. Do not use any products that contain nicotine or tobacco. These include cigarettes and e-cigarettes. If you need help quitting, ask your doctor. Avoid being where people are smoking (avoid secondhand smoke). Make sure you get regular shots and get the flu shot every year. Keep all follow-up visits as told by your doctor. This is important. How to avoid spreading infection to others Wash your hands often with soap and water. If you do not have soap and water, use hand container repairer. Avoid touching your mouth, face, eyes, or nose. Cough or sneeze into a tissue or your sleeve or elbow. Do not cough or sneeze into your hand or into the air. Contact a doctor if: You are getting worse, not better. You have any of these: ?A fever. ?Chills. ?Brown or red mucus in your nose. ?Yellow or brown fluid (discharge)coming from your nose. ?Pain in your face, especially when you bend forward. ?Swollen neck glands. ?Pain with swallowing. ?White areas in the back of your throat. Get help right away if: You have shortness of breath that gets worse. You have very bad or constant: ?Headache. ?Ear pain. ?Pain in your forehead, behind your eyes, and over your cheekbones (sinus pain). ?Chest pain. You have long-lasting (chronic) lung disease along with any of these: ?Wheezing. ?Long-lasting cough. ?Coughing up blood. ?A change in your usual mucus. You have a stiff neck. You have changes in your: ?Vision. ?Hearing. ?Thinking. ?Mood. Summary An upper respiratory infection (URI) is caused by a germ called a virus. The most common type of URI is often called the common cold. URIs usually get better within 7 10 days. Take weaj-zds-kafqkqk and prescription medicines only as told by your doctor. This information is not intended to replace advice given to you by your health care provider. Make sure you discuss any questions you have with your health care provider. Document Released: 02/26/2009 Document Revised: 09/18/2019 Document Reviewed: 05/03/2018 [employer] Patient Education 2020 VCV. 06/01/2023 13:23:25 Enterovirus D68, Adult Enterovirus D68, Adult Enterovirus D68 is a common virus that causes a fever, cough, and nasal congestion (upper respiratory infection). What are the causes? This infection is caused by the enterovirus D68 virus. This virus spreads from person to person through coughing and sneezing. The virus is present in the fluid of an infected person's lungs (upper respiratory secretions). When a sick person coughs or sneezes, particles get released into the air. You can get infected by breathing in those particles. The virus may also be on any surface where these particles land. You can get infected by touching that surface and then touching your nose or mouth. What increases the risk? You are more likely to develop this infection if you: Have a chronic disease, such as chronic obstructive pulmonary disease (COPD), asthma, congestive heart failure, cystic fibrosis, or diabetes. Have a weakened immune system (are immunocompromised). What are the signs or symptoms? For most adults, symptoms of this condition are mild. Common symptoms include: Fever. Nasal congestion. Cough. Sneezing. Muscle aches. Other symptoms include: Skin rash. Mouth sores. In some cases, symptoms may be more severe and can include: Wheezing. Trouble breathing. How is this diagnosed? This condition may be diagnosed based on: Medical history and a physical exam. Chest X-ray. Examination of a fluid sample from your throat or nose. Blood tests. How is this treated? There is no specific treatment or vaccine for this infection. Most people recover after resting at home for several days. If you have a very severe case, you may need to stay in the hospital and have supportive treatment. Follow these instructions at home: Take rizx-yzp-ltklrpy and prescription medicines only as told by your health care provider. Rest at home until symptoms go away. Do not go to work while you have symptoms. Wash your hands often with soap and water for at least 20 seconds. If soap and water are not available, use alcohol-based hand container repairer. Clean and disinfect surfaces that are frequently touched, especially when someone is sick. Do mouth and skin care as told by your health care provider. Drink enough fluid to keep your urine pale yellow. Keep all follow-up visits as told by your health care provider. This is important. Contact a health care provider if: You have a fever. You have nausea or vomiting. Your symptoms last longer than 3 days. Get help right away if you: Develop wheezing. Have trouble breathing. Cannot keep fluids down. Summary Enterovirus D68 is a common virus that causes a fever, cough, and nasal congestion (upper respiratory infection). There is no specific treatment or vaccine for this infection. Most people recover after resting at home for several days. Take wwqq-ocr-bgnuzfo and prescription medicines only as told by your health care provider. Keep all follow-up visits as told by your health care provider. This is important. This information is not intended to replace advice given to you by your health care provider. Make sure you discuss any questions you have with your health care provider. Document Released: 09/15/2014 Document Revised: 01/01/2020 Document Reviewed: 07/15/2019 [employer] Patient Education 2020 VCV. Follow Up Care 05/31/2023 03:55:54 With:ELISSA DIAL DO Address: [address] [place] [id number] When:06/08/2023 09:40:00 Comments:This appointment can serve as your post-hospital follow-up appointment. Follow-up as scheduled. [facility] 09-08-2023 Note Discharge Instructions Thank you for allowing [facility] to assist you with your healthcare needs. The following is importantdischarge information regarding your hospital visit. Your Care Team [facility] Your Diagnosis CHF exacerbation Diabetes mellitus type 2 Factor 5 Leiden mutation, heterozygous Hypertension Hypoxia What to do next Instructions From Your Doctor You were admitted due to shortness of breath and reported hypoxia. You stated that you had a disagreement and felt short of breath right after. We had you on oxygen overnight Sunday night but wereable to wean you back to room air yesterday. We did perform an echocardiogram yesterday which showsnormal heart function and no evidence of diastolic dysfunction. You did have some lower extremity edema yesterday but that appears to have resolved today with IV Lasix. Respiratory therapy did an ambulatory pulse ox today when you were up walking and you were able to maintain 93-94% on room air with activity. Your chest x-ray showed questionable atypical pneumonia, however, you have had no fever or leukocytosis while you have been admitted. We checked atypical causes of pneumonia and those werenegative. A respiratory panel was done which was positive for rhinovirus/enterovirus which is basically a common cold and only requires supportive care. We had therapy see you and they recommend thatyou use a walker at all times when ambulating. We will obtain a walker for you before discharge. You are stable for discharge home today. We have scheduled you in with Dr. Dial on 06/08 for post-hospitalization follow-up and any further recommendations. Follow Up Appointments Follow Up with ELISSA DIAL DO When 06/08/2023 09:40 AM EDT Why: This appointment can serve as your post-hospital follow-up appointment. Follow-up as scheduled. Where: [address] [place] [id number]- The Following Activity and Diet Have Been Ordered for You Discharge Activity - Ordered -- Resume your pre-hospitalization activity, 06/01/23 13:02:00 EDT Discharge Diet - Ordered -- Type of Diet: Regular Diet, 06/01/23 13:02:00 EDT The Following Equipment Has Been Ordered for You Discharge Home Equipment Discharge Home Equipment - Ordered -- Walker; with wheels, 12 month(s), 06/01/23 10:35:00 EDT Allergies Darvocet Tape Xarelto Zestril (Hives) clindamycin metoprolol (Hives) Medications Please ask your primary doctor or pharmacist before taking any other medication not listed, including over the counter drugs, herbal medications, vitamins and or supplements as they may interact withyour home medications. 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 Unchanged fluticasone-salmeterol (Wixela Inhub 250 mcg-50 mcg inhalation powder) 1 puff(s) by inhalation Two (2) times a day Unchanged gabapentin (Neurontin 100 mg oral capsule) 1 cap by mouth Three (3) times a day Unchanged glipiZIDE (glipiZIDE 5 mg oral tablet) 1 tab(s) by mouth Once a day before a meal Unchanged losartan (losartan 25 mg oral tablet) 1 tab(s) by mouth Once a day Unchanged magnesium oxide (magnesium oxide 400 mg oral tablet) 1 tab(s) by mouth Once a day Unchanged meclizine (meclizine 25 mg oral tablet) 1 tab(s) by mouth Two (2) times a day as needed for as needed for dizziness Unchanged metFORMIN (metFORMIN 500 mg oral tablet (IR)) 1 tab(s) by mouth Two (2) times a day Unchanged multivitamin with minerals (Flintstones Complete oral tablet, chewable) 1 tab(s) by mouth Once a day Unchanged omeprazole (PriLOSEC OTC 20 mg oral delayed release tablet) 1 tab(s) by mouth Two (2) times a day Unchanged ondansetron (Zofran 8 mg oral tablet) 1 tab(s) by mouth Every 8 hours as needed for Nausea/Vomiting Unchanged potassium chloride (Potassium Chloride (Eqv-K-Tab) 20 mEq oral tablet, extended release) 1 tab(s) by mouth Two (2) times a day Take with food. Unchanged rOPINIRole (rOPINIRole 3 mg oral tablet) 3 tab(s) by mouth Daily at bedtime Unchanged semaglutide (Ozempic 2 mg/ 3 mL (0.25 mg or 0.5 mg dose) subcutaneous solution) 0.25 Milligram Subcutaneous Every week rotate injection sites Unchanged sertraline (Zoloft 100 mg oral tablet) 2 tab(s) by mouth Once a day (in the morning) Unchanged traMADol (traMADol 50 mg oral tablet) 1 tab(s) by mouth Every 6 hours as needed for for pain Unchanged warfarin (warfarin 2 mg oral tablet) 1 tab(s) by mouth Once a day Unchanged warfarin (warfarin 3 mg oral tablet) 1 tab(s) by mouth Every day Please take this list to your next doctor s visit. Bring all medications you take, including over the counter medications, herbals and other supplements with you to your doctor s visit. Patients and families are reminded to discard old lists and to update any records with all medication providers or retail pharmacies. Education Materials Heart Failure, Self Care Heart failure is a serious condition. This sheet explains things you need to do to take care of yourself at home. To help you stay as healthy as possible, you may be asked to change your diet, take certain medicines, and make other changes in your life. Your doctor may also give you more specific instructions. If you have problems or questions, call your doctor. What are the risks? Having heart failure makes it more likely for you to have some problems. These problems can get worse if you do not take good care of yourself. Problems may include: Blood clotting problems. This may cause a stroke. Damage to the kidneys, liver, or lungs. Abnormal heart rhythms. Supplies needed: Scale for weighing yourself. Blood pressure monitor. Notebook. Medicines. How to care for yourself when you have heart failure Medicines Take [id number] and prescription medicines only as told by your doctor. Take your medicines every day. Do not stop taking your medicine unless your doctor tells you to do so. Do not skip any medicines. Get your prescriptions refilled before you run out of medicine. This is important. Eating and drinking Eat heart-healthy foods. Talk with a diet specialist (dietitian) to create an eating plan. Choose foods that: ? Have no trans fat. ? Are low in saturated fat and cholesterol. Choose healthy foods, such as: ? Fresh or frozen fruits and vegetables. ? Fish. ? Low-fat (lean) meats. ? Legumes, such as beans, peas, and lentils. ? Fat-free or low-fat dairy products. ? Whole-grain foods. ? High-fiber foods. Limit salt (sodium) if told by your doctor. Ask your diet specialist to tell you which seasonings are healthy for your heart. Cook in healthy ways instead of frying. Healthy ways of cooking include roasting, grilling, broiling, baking, poaching, steaming, and stir-frying. Limit how much fluid you drink, if told by your doctor. Alcohol use Do not drink alcohol if: ? Your doctor tells you not to drink. ? Your heart was damaged by alcohol, or you have very bad heart failure. ? You are , may be , or are planning to become . If you drink alcohol: ? Limit how much you use to: ? 0 1 drink a day for women. ? 0 2 drinks a day for men. ? Be aware of how much alcohol is in your drink. In the [place] one drink equals one 12 oz bottle of beer (355 mL), one 5 oz glass of wine (148 mL), or one 1 oz glass of hard liquor (44 mL). Lifestyle Do not use any products that contain nicotine or tobacco, such as cigarettes, e- cigarettes, and chewing tobacco. If you need help quitting, ask your doctor. ? Do not use nicotine gum or patches before talking to your doctor. Do not use illegal drugs. Lose weight if told by your doctor. Do physical activity if told by your doctor. Talk to your doctor before you begin an exercise if: ? You are an older adult. ? You have very bad heart failure. Learn to manage stress. If you need help, ask your doctor. Get rehab (rehabilitation) to help you stay independent and to help with your quality of life. Plan time to rest when you get tired. Check weight and blood pressure Weigh yourself every day. This will help you to know if fluid is building up in your body. ? Weigh yourself every morning after you pee (urinate) and before you eat breakfast. ? Wear the same amount of clothing each time. ? Write down your daily weight. Give your record to your doctor. Check and write down your blood pressure as told by your doctor. Check your pulse as told by your doctor. Dealing with very hot and very cold weather If it is very hot: ? Avoid activities that take a lot of energy. ? Use air conditioning or fans, or find a cooler place. ? Avoid caffeine and alcohol. ? Wear clothing that is loose-fitting, lightweight, and light-colored. If it is very cold: ? Avoid activities that take a lot of energy. ? Layer your clothes. ? Wear mittens or gloves, a hat, and a scarf when you go outside. ? Avoid alcohol. Follow these instructions at home: Stay up to date with shots (vaccines). Get pneumococcal and flu (influenza) shots. Keep all follow-up visits as told by your doctor. This is important. Contact a doctor if: You gain weight quickly. You have increasing shortness of breath. You cannot do your normal activities. You get tired easily. You cough a lot. You don't feel like eating or feel like you may vomit (nauseous). You become puffy (swell) in your hands, feet, ankles, or belly (abdomen). You cannot sleep well because it is hard to breathe. You feel like your heart is beating fast (palpitations). You get dizzy when you stand up. Get help right away if: You have trouble breathing. You or someone else notices a change in your behavior, such as having trouble staying awake. You have chest pain or discomfort. You pass out (faint). These symptoms may be an emergency. Do not wait to see if the symptoms will go away. Get medical help right away. Call your local emergency services (911 in the [place] Do not drive yourself to the hospital. Summary Heart failure is a serious condition. To care for yourself, you may have to change your diet, take medicines, and make other lifestyle changes. Take your medicines every day. Do not stop taking them unless your doctor tells you to do so. Eat heart-healthy foods, such as fresh or frozen fruits and vegetables, fish, lean meats, legumes, fat-free or low-fat dairy products, and whole-grain or high-fiber foods. Ask your doctor if you can drink alcohol. You may have to stop alcohol use if you have very bad heart failure. Contact your doctor if you gain weight quickly or feel that your heart is beating too fast. Get help right away if you pass out, or have chest pain or trouble breathing. This information is not intended to replace advice given to you by your health care provider. Make sure you discuss any questions you have with your health care provider. Document Released: 12/24/2019 Document Revised: 12/23/2019 Document Reviewed: 12/24/2019 Elsevier Patient Education 2020 [employer]. Heart Failure Exacerbation Heart failure is a condition in which the heart does not fill up with enough blood, and therefore does not pump enough blood and oxygen to the body. When this happens, parts of the body do not get the blood and oxygen they need to function properly. This can cause symptoms such as breathing problems, fatigue, swelling, and confusion. Heart failure exacerbation refers to heart failure symptoms that get worse. The symptoms may get worse suddenly or develop slowly over time. Heart failure exacerbation is a serious medical problem that should be treated right away. What are the causes? A heart failure exacerbation can be triggered by: Not taking your heart failure medicines correctly. Infections. Eating an unhealthy diet or a diet that is high in salt (sodium). Drinking too much fluid. Drinking alcohol. Taking illegal drugs, such as cocaine or methamphetamine. Not exercising. Other causes include: Other heart conditions such as an irregular heartbeat (arrhythmia). Anemia. Other medical problems, such as kidney failure. Sometimes the cause of the exacerbation is not known. What are the signs or symptoms? When heart failure symptoms suddenly or slowly get worse, this may be a sign of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 CHEST 05/31/2023 5:02 am COMPARISON: 10/30/2019 HISTORY: ORDERING SYSTEM PROVIDED HISTORY: Reason for Exam: SOB/cough/fever FINDINGS: Normal cardiomediastinal silhouette. Suboptimal exam secondary to body habitus. No vascular congestion, dense consolidation, large pleural effusion, or visible pneumothorax. Osseous structures are poorly evaluated although appear grossly intact. IMPRESSION: Mild interstitial prominence may artifactual/chronic although correlate for signs of atypical infectious process. I have personally reviewed the images of this examination and agree with the resident's findings and interpretation. Interpreted by: Donita Goldman MD Preliminary Report By: Derek León Electronically signed By Donita Goldman MD Dictated Date: 05/31/2023 5:11:23 AM Prelim Date: 05/31/2023 5:13:35 AM Sign Date: 05/31/2023 5:55:35 AM Ordering Provider[facility] NoteSinus rhythm Electronic Signature: CARLOS SINGH MD 05/31/2023 04:14:57[facility] 08-25-2023 Telephone encounter Note* Telephone Encounter - Eneida Lamar RN - 05/18/2023 8:21 AM EDT [facility] 02/15/2022 JAXON Last OV-03/23/23 with NK, next 06/06/23 with NK Will route to clinical team for refill review. [id number] Miscellaneous Notes* Telephone Encounter - Eneida Lamar RN - 05/18/2023 8:21 AM EDT [facility] 02/15/2022 JAXON Last OV-03/23/23 with NK, next 06/06/23 with NK Will route to clinical team for refill review. documented in this [facility]08-07-2023 Discharge summary Author [facility] April 30, 2023 3:48pm Note Date/Time April 30, 2023 1:3 3pm [facility] Medical Records Department [address] [place] [address] Emergency Department Summary 04/30/23 MR#: [id number] Acct: [id number] Name: HEAVEN MONROE Rep #:[id number] : 1955 67 From: Daniel Sharma MD PCP: Dr. Elissa Dial, DO Status:REG ER Location: ED HPI History of Present Illness Chief Complaint: Head Injury Detail of Chief Complaint: Fell last week striking her head Informant: patient Onset/Context/Timing Onset: Days Mechanism/Context: Blunt Injury Quality of Pain: - (Initially left occipital area now complains of pain right parietal region) Location: Left occipital and right parietal Current Severity: Mild Maximum Severity: Moderate Worsened by: Nothing Relieved by: Nothing Associated Symptoms Associated Symptoms: Positive for - (Patient was dazed. She complained of severe pain.); Negative for Parasthesias, Weakness, Loss of function, Inability to ambulate, Loss of consciousness or Amnesia Narrative Narrative: Patient is a 67-year-old woman with history of pulmonary embolus, DVT, factor V Leiden, hyperlipidemia, obstructive sleep apnea, type 2 diabetes and essential hypertension who presents with worsening headache. Initially the headache was left-sided where she sustained the blunt trauma. She now complaining of pain onthe right parietal area. She denies double vision, blurred vision loss of vision. Eyes ringing ears decreased hearing. Denies neck pain. She denies paresthesia, anesthesia motors upper or lower extremity. She denies hematemesis, melena medic easier. She denies hematuria, dysuria, frequency or urgency. Prior similar symptoms: No Recent Illness/Hospitalization: No PFSH PFSH Medical History Anxiety and depression Asthma Chronic diastolic heart failure Congestive heart failure COVID-19 Encounter for screening for COVID-19 Essential hypertension GERD (gastroesophageal reflux disease) IBS (irritable bowel syndrome) Premature atrial contraction Premature ventricular contraction SVT (supraventricular tachycardia) Type 2 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 Home Medications fenofibrate 160 mg tablet 160 mg PO QHS cholesterol 02/09/14 [History Last Taken 12/20/17 19:00] ropinirole 3 mg tablet 1 - 3 mg PO QHS restless legs 02/09/14 [History Last Taken 12/20/17 23:00] tramadol 50 mg tablet 50 mg PO Q6H PRN PRN Pain #8 tabs 04/09/14 [Rx Last Taken Unknown] sertraline 100 mg tablet 200 mg PO DAILY depression 11/30/16 [History Last Taken 12/20/17 09:00] albuterol sulfate 90 mcg/actuation aerosol inhaler (Ventolin HFA) 2 puff inhalation Q6H PRN Wheezing 05/28/19 [History Last Taken Unknown] meclizine 25 mg tablet 25 mg PO TID PRN Dizziness 05/28/19 [History Last Taken Unknown] albuterol sulfate 0.63 mg/3 mL solution for nebulization 0.63 mg inhalation Q6H PRN Sob &/Or Wheezing 06/08/20 [History Last Taken Unknown] gabapentin 100 mg capsule 100 mg PO TID 03/29/21 [History Last Taken Unknown] warfarin 1 mg tablet 1 mg PO DAILY 03/29/21 [History Last Taken Unknown] warfarin 2 mg tablet 2 mg PO DAILY 03/29/21 [History Last Taken Unknown] furosemide 20 mg tablet 20 mg PO DAILY PRN Swelling 05/26/21 [History Last Taken Unknown] glipizide 10 mg tablet 5 mg PO BID 06/01/22 [History Last Taken Unknown] metformin 1,000 mg tablet 500 mg PO BIDCM diabetes 06/01/22 [History Last Taken Unknown] omeprazole magnesium 20 mg tablet,delayed release (Prilosec OTC) 20 mg PO BID 06/01/22 [History Last Taken Unknown] warfarin 5 mg tablet 3 mg PO DAILY 06/01/22 [History Last Taken Unknown] nystatin 100,000 unit/gram topical cream 1 applic topical BID #15 grams 09/26/22[Rx Last Taken Unknown] triamcinolone acetonide 0.5 % topical cream 1 applic topical BID 7 days #15 grams 09/26/22 [Rx Last Taken Unknown] fluconazole 150 mg tablet (Diflucan) 150 mg PO ONCE #2 tabs 09/30/22 [Rx Last Taken Unknown] fluticasone 250 mcg-salmeterol 50 mcg/dose blistr powdr for inhalation (Grzegorz Rae) 1 inh inhalation BID #60 ea 01/08/23 [Rx Last Taken Unknown] vibegron 75 mg tablet (Gemtesa) 75 mg PO DAILY 01/08/23 [History Last Taken Unknown] hydrocodone-acetaminophen 5-325mg 5mg-325mg 1 tab PO Q6H PRN PRN Pain 3 days #10TABLETS 04/30/23 [Rx Last Taken Unknown] Allergy/AdvReac Type Severity Reaction Status Date / Time KENYA Inhibitors Allergy cough Verified 04/30/23 13:02 clindamycin Allergy Hives Verified 04/30/23 13:02 liraglutide [From Victoza] Allergy lump in Verified 04/30/23 13:02 throat metoprolol Allergy unk Verified 04/30/23 13:02 propoxyphene napsylate Allergy Unknown Verified 04/30/23 13:02 [From Darvocet-N 100] repaglinide AdvReac Severe Back Pain, Verified 04/30/23 13:02 PULIDO, Nausea Family History Father Diabetes Heart disease Mother CVA (cerebral vascular accident) Alzheimer disease Sister Cancer throat, mouth Surgical History (Reviewed 06/01/22 @ 08:33 by Mary Rowe VOYAGE MANAGEMENT SYSTEM OPERATOR, VOYAGE MANAGEMENT SYSTEM OPERATOR-C) History of cholecystectomy History of hip replacement History of laparoscopic-assisted vaginal hysterectomy Hx of appendectomy Social History (Updated 04/30/23 @ 13:[address] Daniel Sharma MD) household members: spouse Smoking Status: Never smoker alcohol intake: never substance use type: does not use caffeine: Yes what type of physical activity do you participate in: none seatbelt use: always do you feel safe at home: Yes additional social history: [place]- Retired from [employer] ROS ROS ED Constitutional Constitutional ED: Denies chills, fever(s), subjective, sweats or weight loss Eyes Eyes: Denies blurry vision or change in vision ENT ENT ED: Denies ear pain, rhinorrhea or sore throat Cardiovascular Cardiovascular: Denies chest pain, palpitations, paroxysmal nocturnal dyspnea orracing heartbeat Respiratory/Chest Respiratory/Chest: Denies cough, dyspnea, dyspnea on exertion or paroxysmal nocturnal dyspnea Gastrointestinal Gastrointestinal: Denies abdominal pain, melena, nausea or vomiting Genitourinary Genitourinary ED: Denies dysuria, hematuria or urinary frequency Musculoskeletal Musculoskeletal: Denies arthralgias, back pain, myalgias or neck pain Integumentary Denies rash Neurologic Neurologic: Reports headache(s); Denies paresthesias or weakness Psychiatric Psychiatric: Denies anxiety or depression Endocrine Endocrinology: Denies cold intolerance or heat intolerance Hematologic/Lymphatic Hematologic/Lymphatic: Reports easy bruising; Denies easy bleeding EXAM Physical Exam Const Vital Signs: 04/30/23 13:00 04/30/23 13:08 Temperature 97.8 F Temperature Source Temporal Pulse Rate 79 Respiratory Rate 18 Respiratory Effort Normal Non-Labored Blood Pressure 183/79 H Blood Pressure Mean 113 Pulse Ox 98 Oxygen Delivery Method Room Air Room Air Positive well nourished, well developed and obese Constitutional Narrative: Patient is not alert but is awake. General Appearance ED: well developed Nutritional Appearance: obese HEENT HEENT Narrative: There is a small contusion left occipital area. There is tenderness over the left occipital area. There is no palpable oppression. There is no clinical rice-based skull fracture. tenderness Eyes PERRL and EOMs intact bilaterally General Eye ED: Yes other Other Details: There is no subconjunctival hemorrhage Neck full ROM Neck Narrative: Full active range of motion without discomfort. General: Negative for tenderness Chest Wall inspection of chest normal and palpation of chest normal Resp normal respiratory effort and clear to auscultation bilaterally Cardio regular rhythm, S1 normal heart sound, S2 normal heart sound and no murmurs Rate: regular rate GI normal to inspection, nondistended, normoactive bowel sounds, non-tender, non-distended and no masses Palpation: soft Back/Spine normal to inspection and no thoracic nor lumbar tenderness General Back: Negative for CVA tenderness Thoracic Spine / Upper Back: Negative for thoracic spinal tenderness Lumbar Spine / Lower Back: Negative for straight leg raise negative bilaterally Extremity normal to inspection and full ROM General Extremety ED: Negative for deformity or tenderness General Extremity: Negative for deformity Neuro oriented x3, CN's II-XII intact bilaterally, moves all extremities, no focal motor deficits and no sensory deficits noted [place] Coma Scale: document GCS findings Spontaneous Obeys Commands Oriented 15 Sensorium / Orientation: Negative for alert Deep Tendon Reflexes: Rt Triceps (C7): 1+, Lt Triceps (C7): 1+, Rt Biceps (C5, C6): 1+, Lt Biceps (C5, C6): 1+, Rt Patellar (L4): 1+, Lt Patellar (L4): 1+, Rt Ankle (S1): 1+ and Lt Ankle (S1): 1+ Deep Tendon Reflexes Back: Rt Patellar (L4): 1+, Lt Patellar (L4): 1+, Rt Ankle (S1): 1+ and Lt Ankle (S1): 1+ Plantar Reflex: Downgoing: bilateral Psych mental status grossly normal and thought process normal Skin no rashes or lesions noted, skin turgor normal and No no jaundice Rashes: No rashes noted Trauma: Negative for abrasion MDM MDM MDM Narrative Medical decision making narrative: Since patient is on a novel oral anticoagulant with head trauma now complaining of pain on the contrecoup area will obtain CT of the head to rule out intracranial bleed and specifically subdural. Also need to evaluate for subarachnoid hemorrhage and intraparenchymal bleed. Epidural as unlikely. Patient initially stated she was on Coumadin and reason PT/INR was ordered. Last she is noted to be on novel oral anticoagulant, Eliquis. CT of the head was reviewed and there is no evidence of subdural hematoma, epidural hematoma, traumatic subarachnoid hemorrhage or intraparenchymal contusion. Awaiting formal read by radiologist. I was informed by nurse at 1505 that patient is complaining of headache and would like something for head pain. 2 mg of morphine was ordered. Lab Data Labs: Laboratory Results - last 24 hr 04/30/23 13:55 PT 24.3 H INR 2.2 Radiography Diagnostic Testing: Clinical Impression(s) from Imaging Studies Brain CT 04/30/23 13:06 IMPRESSION: Normal unenhanced CT scan of the brain. Electronically Signed: Darius Marin MD at 13:49 EDT , Treatment and Re-Evaluation Narrative: Patient was informed of her CAT scan results. She was informed that she has a postconcussive syndrome. She was discharged home with home-going structures. Discharge Plan Triage Chief Complaint: Head Injury ED Provider: Daniel Sharma Dx/Rx/DC Orders Clinical Impression: Closed head injury with brief loss of consciousness, Type 2 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, Essential hypertension, Anticoagulant long-term use Instructions: ED Concussion Prescriptions: New hydrocodone-acetaminophen [hydrocodone-acetaminophen] 5-325 mg tablet 1 tab PO Q6H PRN PRN (Reason: Pain) 3 Days Qty: 10 0RF No Action meclizine 25 mg tablet 25 mg PO TID PRN (Reason: Dizziness) albuterol sulfate [Ventolin HFA] 90 mcg/actuation HFA aerosol inhaler 2 puff INHALATION Q6H PRN (Reason: Wheezing) albuterol sulfate 0.63 mg/3 mL solution for nebulization 0.63 mg INHALATION Q6H PRN (Reason: Sob &/Or Wheezing) warfarin 2 mg tablet 2 mg PO DAILY gabapentin 100 mg capsule 100 mg PO TID warfarin 1 mg tablet 1 mg PO DAILY glipizide 10 mg tablet 5 mg PO BID warfarin 5 mg tablet 3 mg PO DAILY omeprazole magnesium [Prilosec OTC] 20 mg tablet,delayed release (DR/EC) 20 mg PO BID Gemtesa 75 mg tablet 75 mg PO DAILY fluticasone propion-salmeterol [Wixela Inhub] 250-50 mcg/dose blister with device 1 inh inhalation BID Qty: 60 11RF fluconazole [Diflucan] 150 mg tablet 150 mg PO ONCE Qty: 2 0RF Rx Instructions: 1 tab on day one and symptoms continue day 3 then second pill ropinirole 3 MG tablet 1 - 3 mg PO QHS Patient Comments: RESTLESS LEGS fenofibrate 160 MG tablet 160 mg PO QHS Patient Comments: reduces triglycerides metformin 1,000 mg tablet 500 mg PO BIDCM Patient Comments: diabetes tramadol 50 MG tablet 50 mg PO Q6H PRN PRN (Reason: Pain) Qty: 8 0RF Patient Comments: pain sertraline 100 MG tablet 200 mg PO DAILY Patient Comments: depression furosemide 20 mg tablet 20 mg PO DAILY PRN (Reason: Swelling) triamcinolone acetonide 0.5 % cream 1 applic topical BID 7 Days Qty: 15 2RF Rx Instructions: peasized amount as instructed nystatin 100,000 unit/gram cream 1 applic topical BID Qty: 15 1RF Primary Care Provider: Elissa Dial Referrals: Elissa Dial DO [Primary Care Provider] - 10-14 Days if not better Disposition Disposition: Home, Self Care What to do if you have Problems For any increased pain, shortness of breath, bleeding, nausea or vomiting, chestpain, or any unexpected problems, contact your Primary Care Provider. Call [facility] ([phone]) or report to the closest Emergency Room. Call 911 if necessary. 04/30/23 1548 <Electronically signed by Daniel Sharma MD> Cosigner Signature (if applicable): CC: Dr. Elissa Dial, DO ~ Signed [facility] Work Phone: [phone]) 532-297807-11-2023 Telephone encounter Note* Telephone Encounter - ALIE Shafer - 04/03/2023 1:42 PM EDT Signed, thanks [id number] Miscellaneous Notes* Telephone Encounter - ALIE Shafer - 04/03/2023 1:42 PM EDT Signed, thanks * Telephone Encounter - Naomi Crowder RD - 04/03/2023 12:45 PM EDT Spoke to patient over [employer] regarding labs. Discussed Vitamin D level with patient. Patient reported she was taking 1,[address] recommended patient take 4,000 IU Vitamin D once daily and patient was agreeable. Asked about iron, as hemoglobin came back low. Patient does report to taking MVI with iron daily, and no additional iron at this time. List of iron-rich foods was sent to patient, and patient is to increase these foods in diet to help with low hemoglobin. Medication list updated. Orders pending to recheck labs in 3 months. * Telephone Encounter - Naomi Crowder RD - 04/02/2023 11:34 AM EDT Attempted to call patient regarding labs, however went to [employer] and mailbox is full. Will send a [employer] message. * Telephone Encounter - Naomi Crowder RD - 03/30/2023 8:38 AM EDT LSG 02/15/2022 [facility] Labs (03/29/23) Hgb: 11.4 (L) --note: Hct WNL and ferritin WNL. Iron from 02/23/23 WNL. Vitamin D: 19 (L) Sending [employer] message to patient to review labs. * Telephone Encounter - Naomi Crowder RD - 03/30/2023 8:38 AM EDT ----- Message from ALIE Shafer sent at 03/29/2023 4:00 PM EDT ----- Zak- please review in MB absence. Thanks! [facility] this [id number] Telephone encounter Note* Telephone Encounter - Naomi Crowder RD - 04/03/2023 12:45 PM EDT Spoke to patient over [employer] regarding labs. Discussed Vitamin D level with patient. Patient reported she was taking 1,[address] recommended patient take 4,000 IU Vitamin D once daily and patient was agreeable. Asked about iron, as hemoglobin came back low. Patient does report to taking MVI with iron daily, and no additional iron at this time. List of iron-rich foods was sent to patient, and patient is to increase these foods in diet to help with low hemoglobin. Medication list updated. Orders pending to recheck labs in 3 months. [id number] Telephone encounter Note* Telephone Encounter - Naomi Crowder RD - 04/02/2023 11:34 AM EDT [facility]ed to call patient regarding labs, [facility] Will send a MyChart message. [facility] [id number] Telephone encounter Note* Telephone Encounter - Naomi Crowder RD - 03/30/2023 8:38 AM EDT LSG 02/15/2022 [facility] Labs (03/29/23) Hgb: 11.4 (L) --note: Hct WNL and ferritin WNL. Iron from 02/23/23 WNL. Vitamin D: 19 (L) Sending MyChart message to patient to review labs. [facility] [id number] Telephone encounter Note* Telephone Encounter - Naomi Crowder RD - 03/30/2023 8:38 AM EDT ----- Message from ALIE Shafer sent at 03/29/2023 4:00 PM EDT ----- Keturah/Naomi- please review in MB absence. Thanks! [facility] [id number] History of Present illness Narrative* Magda Nick MA - 03/23/2023 10:40 AM EDT [facility] ROOMING NOTE POST WEIGHT LOSS SURGERY FOLLOW UP Patient: Blaise Fer Service Date: 03/23/2023 Patient is 1 year(s) s/p Sleeve Gastrectomy Today's Metrics: Post-Surgical Weight Loss Date: 03/23/23 Height: 5' 3.5 (161.3 cm) Weight: 241 lb (109 kg) BMI: 42.02 Weight Change: -.2 lbs Total Weight Change: -24.2 lbs % EBWL: 18% Comments: POP D/E FU Post-op Weight Metrics: Post-Surgical Weight Loss Date: 03/23/23 Height: 5' 3.5 (161.3 cm) Weight: 241 lb (109 kg) BMI: 42.02 Weight Change: -.2 lbs Total Weight Change: -24.2 lbs % EBWL: 18% Comments: POP D/E FU (From Surgical Weight Loss Tracker) Patient has the following questions: None Reported Pain: Patient rates pain on scale 0-10 as: Exercise Compliance: Exercising: no If yes: Type: Times per week: Min per session: Falls Risk Assessment Patient does take medications which affect BP or mental status Patient does not t have newly prescribed or changed dosage of medications within past 30 days whichaffect BP or mental status Patient has not fallen in the past 2 months Patient does not t demonstrate unsteady gait Patient uses the following ambulatory assistive devices: cane Patient states the presence of the following traits which increases risk of fall: Patient is not on home O2 Pre-op Weight Metrics: Labs Completed: no - If NO, patient instructed to get labs drawn today or ROSEY If YES: Labs completed at [facility]? N/A If yes see Labs Tab Labs completed at Non-[facility] facility? N/A If yes see Encounters Tab - Orders only - Historical Provider - Date: Completed by: Magda Nick MA * Mikayla Frazier MD - 03/23/2023 10:40 AM EDT [facility] [place] POST-OP WEIGHT LOSS MANAGEMENT PROGRESS NOTE FOLLOW UP HPI, PHYSICAL EXAMINATION & PLAN HPI: Patient here today for follow up for weight loss management following surgical weight loss Weight trend since last visit: stable/unchanged This patient's excess weight is causing the following co-morbid conditions at this time: DM Plan Physical Examination: BP (!) 156/78 Pulse 79 Resp 18 Ht 5' 3.5 (1.613 m) Wt 241 lb (109 kg) BMI 42.02 kg/m General: This patient is alert and oriented X3 General: This patient is awake, alert, and oriented, and is in no apparent distress. Extremities: No cyanosis, clubbing or edema/ No calf tenderness/No restrictions of movement, is ambulatory without assistance. Neurological: Intact x 4 extremities, no focal deficits notes. Skin: No rashes or lesions noted. Social History: This patient is unaccompanied for the evaluation today. She does not smoke, and does not drink alcohol. Current Diet This patient s current diet is: off the meal plan and stress eating Her diet contains adequate amounts of protein, adequate amounts of healthy fats, adequate amounts of green, leafy vegetables, and adequate amounts of fruits. Her comfort foods include:sweets Current Activity Does not exercise Will start PT Current Eating Behaviors This patients demonstrates the following behaviors as they relate to her eating:eats large portions, eats in response to stress, and eats in response to emotions She eats approximately 3-4 times per day. Her last meal/snack was at 6-8 am/pm. Progress Made Towards Goals: 3 month weight goal: 20 6 month weight goal: 30 12 month weight goal: 40 Plan: S/P bariatric surgery stable Continue current management, continue weight loss program Obesity Continue current management, continue weight loss program Stable Discuss how to meal prep after bariatric surgery Will see psychology for stress eating counseling DM Currently on metformin Denied allergy to victoza She was scare of victoza due to her relative recent dx with cancer of throat It was rather long time ago Discuss side effects of ozempic [x] Protein goal of 1g protein per 1 kg of ideal body weight: 75 grams [x] Patient advised to maintain a food/exercise/behavior diary until next physician visit. Pt to bring the completed diary to next visit Other: Physician Diet Recommendations given to patient See Follow up Section of today's encounter for next visit and additional scheduling orders I spent a total of 30 minutes on the day of the visit discussing/counseling the patient regarding the post operative management listed below. 1. Adherence to nutrient-dense foods,containing sufficient amounts of lean proteins and fibers. Fluid 30 minutes before or after meals. 1 cup is the maximum meal size. 2.Food intolerance (vomiting and regurgitation,GERD, diarrhea, dumping snd and hypoglycemia) discussed 3.Micronutrient supplementation discussed 4. Physical activity - aerobic physical activity 150-300 min/wk and strength training 2-3 times perwk. Will start PT 5. Counseling on no nicotine, NSAIDs, excessive caffeine and alcohol after surgery 6. Weight regain Is associated with obesity and weight loss/ weight maintenance is discussed as a treatment option for weight regain 7. Weight maintenance after bariatric surgery discussed 8. Weight regain prevention after bariatric surgery discussed The patient was seen and a full chart review was performed.Clinical documentation is updated and completed. documented in this [facility]06-07-2023 Telephone encounter Note* Telephone Encounter - ALIE Shafer - 02/28/2023 7:20 AM EDT Signed, thanks [employer] Phone: [phone] Miscellaneous Notes* Telephone Encounter - ALIE Shafer - 02/28/2023 7:20 AM EDT Signed, thanks * Telephone Encounter - Magda Patel RD - 02/27/2023 3:56 PM EDT Please see [employer] communication between pt and this RD. Recommend: Increase Vitamin D from 4000 International Units per day to 6000 International Units per day. Add 400 mg per day of Magnesium. Switch to a Flinstone's with 18 mg of iron per tab. Review high iron food list-sent via [employer]. Med list updated. Will monitor mg in 1 mo and other labs in 3 months. Orders pending. Please sign. Thank you! * Telephone Encounter - Magda Patel RD - 02/26/2023 11:44 AM EDT LSG 02/15/2022 JZ 02/23/2023 Hgb: 11.2 (L) Hemct: 34.7 (L) Ferritin: 18 (WNL) Iron: 59 (WNL) Vitamin D: 22 (L) Magnesium: 1.5 (L) Attempted to contact pt via phone regarding labs. Voicemail box is full so could not leave message. Sent [employer] message. documented in this [facility]06-06-2023 Telephone encounter Note* Telephone Encounter - Magda Patel RD - 02/27/2023 3:56 PM EDT Please see [employer] communication between pt and this RD. Recommend: Increase Vitamin D from 4000 International Units per day to 6000 International Units per day. Add 400 mg per day of Magnesium. Switch to a Flinstone's with 18 mg of iron per tab. Review high iron food list-sent via [employer]. Med list updated. Will monitor mg in 1 mo and other labs in 3 months. Orders pending. Please sign. Thank you! [facility] [id number] Telephone encounter Note* Telephone Encounter - Magda Patel RD - 02/26/2023 11:44 AM EDT LSG 02/15/2022 JZ 02/23/2023 Hgb: 11.2 (L) Hemct: 34.7 (L) Ferritin: 18 (WNL) Iron: 59 (WNL) Vitamin D: 22 (L) Magnesium: 1.5 (L) Attempted to contact pt via phone regarding labs. Voicemail box is full so could not leave message. Sent [employer] message. [facility] [id number] History of Present illness Narrative* Tung Curry MD - 02/15/2023 9:45 AM EDT [facility]GICAL [facility] Patient: Blaise Monroe Date of : 1955 Service Date: 02/15/2023 HPI: Patient here today for 12 month post-weight loss surgery follow up She is feeling well. Denies vomiting, dysphagia, or any GERD Sx. Currently is on any PPI. Patient states diet and exercise is not going well. Currently is eating 65-75 gm/day protein, and is compliant with prescribed multivitamins and supplements. Vital signs are stable. Labs were Not completed All labs were: pending Reports nausea if goes too long without eating, no vomiting. Resolves with PO intake. Has been lax with diet lately - discussed weekly meal plan with RD today Hasn't been taking calcium supplementation - discussed with RD today Got knees injected last week and hoping to be able to walk more but tripped and fell over cat a fewdays ago and fell on knees. Reports she was told she isn't a candidate for knee surgery due to factor V Leiden. Physical Examination: BP (!) 145/73 Pulse 85 Temp (!) 35.6 C (96 F) Resp 18 Ht 5' 3.5 (1.613 m) Wt 241 lb 3.2 oz (109 kg) BMI 42.06 kg/m General: This patient is awake, alert, and oriented, and is in no apparent distress. Abdomen: Obese, soft, non-tender, non-distended without masses/ No evidence of abdominal hernia / Incisions consistent with previous surgeries. Extremities: No cyanosis, clubbing or edema/ No calf tenderness/uses a cane for stability . Ambulatory with minimal assistance. Neurological: Intact x 4 extremities, no focal deficits notes. Skin: Intertrigo below pannus Rectal: Deferred Current Medications: Patient's Medications New Prescriptions NYSTATIN (MYCOSTATIN) 837031 UNIT/GM POWDER Apply 1 application. topically 2 times daily. Apply topically to affected area two times daily. Previous Medications ALBUTEROL SULFATE (VENTOLIN HFA IN) 2 puff(s), Inhalation, q4h, PRN as needed for wheezing, 0 Refill(s) CYANOCOBALAMIN (VITAMIN B-12 PO) FESOTERODINE ER (TOVIAZ) 8 MG 24 HR TABLET Take 8 mg by mouth. GABAPENTIN (NEURONTIN) 100 MG CAPSULE HYDROCHLOROTHIAZIDE (HYDRODIURIL) 25 MG TABLET Take 25 mg by mouth daily. LOSARTAN (COZAAR) 100 MG TABLET Take 50 mg by mouth. MAGNESIUM OXIDE (MAG-OX) 400 MG TABLET Take 1 tablet by mouth daily. MECLIZINE (ANTIVERT) 25 MG TABLET 25 mg. METFORMIN (GLUCOPHAGE) 500 MG TABLET Take 500 mg by mouth in the morning and 500 mg in the evening. OMEPRAZOLE (PRILOSEC) [address] CAPSULE Take 1 capsule (20 mg) by mouth daily. Do not crush or chew. ONDANSETRON (ZOFRAN) 4 MG TABLET Take 4 mg by mouth as needed for nausea or vomiting. PEDIATRIC MULTIVITAMIN-IRON (FLINTSTONES COMPLETE) TABLET CHEWABLE SPLIT TABLET POTASSIUM CHLORIDE CR (KLOR-CON M20) 20 MEQ ER TABLET Take 1 tablet by mouth in the morning and 1 tablet before bedtime. RESPIRATORY THERAPY SUPPLIES (CARETOUCH CPAP & BIPAP HOSE) [facility] [place] RESPIRATORY THERAPY SUPPLIES (CARETOUCH CPAP & BIPAP HOSE) [facility] [place] SERTRALINE (ZOLOFT) 100 MG TABLET Take 2 tablets by mouth. VITAMIN D, CHOLECALCIFEROL, PO Take 4,000 Int'l Units by mouth. WARFARIN (COUMADIN) 2 MG TABLET Take 2 mg by mouth. as directed WARFARIN (COUMADIN) 5 MG TABLET Take 5 mg by mouth in the morning. Modified Medications No medications on file Discontinued Medications CALCIUM CITRATE-VITAMIN D (CALCIUM CITRATE + PO) Take 1 tablet by mouth in the morning and 1 tabletat noon and 1 tablet before bedtime. GLIPIZIDE XL (GLUCOTROL XL) 10 MG 24 HR TABLET Take 50 mg by mouth. OMEPRAZOLE OTC (PRILOSEC OTC) 20 MG EC TABLET 20 mg. SERTRALINE (ZOLOFT) 100 MG TABLET Take 100 mg by mouth. Medications ordered during this encounter: Outpatient Encounter Medications as of 02/15/2023 Medication Sig Dispense Refill Albuterol Sulfate (VENTOLIN HFA IN) 2 puff(s), Inhalation, q4h, PRN as needed for wheezing, 0 Refill(s) fesoterodine ER (Toviaz) 8 MG 24 hr tablet Take 8 mg by mouth. gabapentin (Neurontin) 100 MG capsule hydroCHLOROthiazide (HYDRODiuril) 25 MG tablet Take 25 mg by mouth daily. losartan (Cozaar) 100 MG tablet Take 50 mg by mouth. meclizine (Antivert) 25 MG tablet 25 mg. metFORMIN (Glucophage) 500 MG tablet Take 500 mg by mouth in the morning and 500 mg in the evening. omeprazole (PriLOSEC) [address] capsule Take 1 capsule (20 mg) by mouth daily. Do not crush or chew.(Patient taking differently: Take 20 mg by mouth daily. Do not crush or chew.) 90 capsule 1 ondansetron (Zofran) 4 MG tablet Take 4 mg by mouth as needed for nausea or vomiting. pediatric multivitamin-iron (Flintstones Complete) tablet chewable split tablet potassium chloride CR (Klor-Con M20) 20 MEQ ER tablet Take 1 tablet by mouth in the morning and 1 tablet before bedtime. [place]piratory Therapy [place] [facility] [place]AP [place] [facility] [place] sertraline (Zoloft) 100 MG tablet Take 2 tablets by mouth. VITAMIN D, CHOLECALCIFEROL, PO Take 4,000 Int'l Units by mouth. warfarin (Coumadin) 2 MG tablet Take 2 mg by mouth. as directed warfarin (Coumadin) 5 MG tablet Take 5 mg by mouth in the morning. Cyanocobalamin (VITAMIN B-12 PO) magnesium oxide (Mag-Ox) 400 mg tablet Take 1 tablet by mouth daily. nystatin (Mycostatin) 220533 UNIT/GM powder Apply 1 application. topically 2 times daily. Apply topically to affected area two times daily. 60 g 2 [DISCONTINUED] Calcium Citrate-Vitamin D (CALCIUM CITRATE + PO) Take 1 tablet by mouth in the morning and 1 tablet at noon and 1 tablet before bedtime. [DISCONTINUED] glipiZIDE XL (Glucotrol XL) 10 MG 24 hr tablet Take 50 mg by mouth. [DISCONTINUED] omeprazole OTC (PriLOSEC OTC) 20 MG EC tablet 20 mg. [DISCONTINUED] sertraline (Zoloft) 100 MG tablet Take 100 mg by mouth. No facility-administered encounter medications on file as of 02/15/2023. Orders Placed This Encounter Procedures Zinc Folate Magnesium Vitamin D 25 hydroxy Vitamin B12 Vitamin B1, whole blood Lipid panel Comprehensive metabolic panel CBC Ferritin Iron Visit Diagnoses: 1. Arthralgia of both knees 2. GERD without esophagitis 3. Primary hypertension 4. 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 MITZI (obstructive sleep apnea) 6. Deficiency of multiple nutrient elements 7. Morbid obesity with BMI of 40.0-44.9, adult ([facility]) Plan: 1). Diet and Exercise: Walking as able - has been limited by knee pain 2). Continue to monitor for signs and symptoms of GERD / Continue PPI 3). Labs: pending 4). Psych concerns : No 5). Excessive skin concerns: No - will discuss at 18 month visit once weight stability achieved. 6). If patient is a woman of childrearing age- 18-50. We discussed the importance of contraception during the first 12-18 months post op, and we discussed that fertility will increase following the procedure. Advised patient to discuss with her OBGYN regarding contraception. Patient counseled with good understanding verbalized. 7). Weight loss: Post-op Weight Metrics: %EBWL: % EBWL: 26% Weight Change Since Last Visit: Weight Change: 7 lbs Weight Change from Highest Pre-op Weight: Total Weight Change: -44 lbs She met with the dietitian today to review our vitamin and protein recommendations. Increase activity as recommended, the wounds are healed, no evidence of abdominal wall hernias. No nausea vomiting or dysphagia noted. Appropriate bowel function, discussed with her regarding contacting us for any questions or concerns. The lab slip was signed for the next visit, labs are PENDING, will call with results. Follow-up 18 months postop. Refer to Dr. Frazier for consideration of injectables - having a hard time with diet and activity - d/w dtr to help with meal plans. Rx for referral placed. I personally performed the evaluation and management of Blaise Monroe in the development of a treatment plan for this patient. I personally interviewed the patient and performed an individual physical examination. In addition, I discussed the patient's condition and treatment options with them. I have also reviewed and agree with the past medical, family and social history unless otherwise noted.All of the patient's questions were answered. I discussed/counseled the patient regarding the postoperative care plan for this patient. The patient was seen and examined independently and relevant data reviewed by myself. A full chart review wasperformed. Patient Care Team: Elissa Dial as PCP - General Tung Curry MD as Surgeon (General Surgery) * Margie Lemus - 02/15/2023 9:45 AM EDT [facility] PROGRESS NOTE POST WEIGHT LOSS SURGERY FOLLOW UP Patient: Blaise Monroe Service Date: 02/15/2023 Patient is 12 month(s) s/p Sleeve Gastrectomy Today's Metrics: Post-Surgical Weight Loss Date: 02/15/23 Height: 5' 3.5 (161.3 cm) ([facility] - ht recheck) Weight: 241 lb 3.2 oz (109 kg) ([facility]) BMI: 42.05 Weight Change: 7 lbs Total Weight Change: -44 lbs % EBWL: 26% Comments: 12M Pre-op Weight Metrics: Pre-Surgical Weight Loss Initial Height: 5' 4 (162.6 cm) Initial Weight: 285 lb 3.2 oz (129 kg) Initial BMI: 48.95 [place] Body Weight: 117 lb 8 oz (53.3 kg) Surgery Date: 02/15/22 Pre-Surgical Height: 5' 4 (162.6 cm) Pre-Surgical Weight: 285 lb 3.2 oz (129 kg) Pre Surgery BMI: 48.95 Weight to Lose: 167 lb Post-op Weight Metrics: %EBWL: % EBWL: 26% Weight Change Since Last Visit: Weight Change: 7 lbs Weight Change from Highest Pre-op Weight: Total Weight Change: -44 lbs Patient has the following questions: getting back on track Pain: Patient rates pain on scale 0-10 as: 0 Exercise Compliance: Exercising: no If yes: Type: none Times per week: 0 Min per session: 0 Falls Risk Assessment Patient does take medications which affect BP or mental status Patient does have newly prescribed or changed dosage of medications within past 30 days which affect BP or mental status Patient has fallen in the past 2 months Patient does demonstrate unsteady gait Patient uses the following ambulatory assistive devices: wheelchair Patient states the presence of the following traits which increases risk of fall: wheel chair use Patient is not on home O2 Labs Completed: no - If NO, patient instructed to get labs drawn today or ROSEY If YES: Labs completed at [facility]? no If yes see Labs Tab Labs completed at Non-[facility] facility? If yes see Encounters Tab - Orders only - Historical Provider - Date: Completed by: Margie Lemus * Magda Patel RD - 02/15/2023 9:45 AM EDT [facility] [place] > 6 MONTH POST-OPERATIVE DIETITIAN VISIT Date: 02/15/23 Patient's weight decreased by: 44 lbs Patient does consume 5-6 small meals daily Patient s portions are adequate for current diet: -1 cup Protein requirements discussed- currently not tracking Current protein sources: eggs, sausage, chicken, turkey, cheese, cottage cheese, beef, beans, nuts Recommendations:none Fluid requirements discussed. Current Fluid Intake: 32-48 oz/day Patient does drink sugar-free, caffeine-free and carbonation-free fluids only. Patient does wait 30 minutes before and after meals to drink Exercise activities discussed. Patient does not currently exercise. She was reminded that regular exercise is critical part of a successful outcome following weight loss surgery. (Knee pain, frequentfalls, however active with ADLs) Behavioral/Emotional changes reviewed. Patient does feel comfortable with changes in eating behaviors and associated emotional changes. She was reminded that psychological counseling is available through the [facility] post-[facility]. Recent Nutrient Concerns and Vitamin Supplementation Changes: to have labs done- will monitor. Pt not compliant with vitamins/minerals. Agreeable to resuming; reviewed vitamin/mineral protocol. Notes/Comments: Increase water to 64 oz/day; try lemon or raul in tea. Resume supplements. Protein q meal snack. Pt doing ok. Pt encouraged to call/Mychart with questions. Visit completed by: Magda Patel RD * Yola King LPN - 02/15/2023 9:45 AM EDT See TE appointment with Dr Frazier sent to [facility] 260 FDT documented in this [facility]05-25-2023 History of Present illness Narrative* Tung Curry MD - 02/15/2023 9:45 AM EDT [facility] Patient: Blaise Monroe Date of : 1955 Service Date: 02/15/2023 HPI: Patient here today for 12 month post-weight loss surgery follow up She is feeling well. Denies vomiting, dysphagia, or any GERD Sx. Currently is on any PPI. Patient states diet and exercise is not going well. Currently is eating 65-75 gm/day protein, and is compliant with prescribed multivitamins and supplements. Vital signs are stable. Labs were Not completed All labs were: pending Reports nausea if goes too long without eating, no vomiting. Resolves with PO intake. Has been lax with diet lately - discussed weekly meal plan with RD today Hasn't been taking calcium supplementation - discussed with RD today Got knees injected last week and hoping to be able to walk more but tripped and fell over cat a fewdays ago and fell on knees. Reports she was told she isn't a candidate for knee surgery due to factor V Leiden. Physical Examination: BP (!) 145/73 Pulse 85 Temp (!) 35.6 C (96 F) Resp 18 Ht 5' 3.5 (1.613 m) Wt 241 lb 3.2 oz (109 kg) BMI 42.06 kg/m General: This patient is awake, alert, and oriented, and is in no apparent distress. Abdomen: Obese, soft, non-tender, non-distended without masses/ No evidence of abdominal hernia / Incisions consistent with previous surgeries. Extremities: No cyanosis, clubbing or edema/ No calf tenderness/uses a cane for stability . Ambulatory with minimal assistance. Neurological: Intact x 4 extremities, no focal deficits notes. Skin: Intertrigo below pannus Rectal: Deferred Current Medications: Patient's Medications New Prescriptions NYSTATIN (MYCOSTATIN) 142572 UNIT/GM POWDER Apply 1 application. topically 2 times daily. Apply topically to affected area two times daily. Previous Medications ALBUTEROL SULFATE (VENTOLIN HFA IN) 2 puff(s), Inhalation, q4h, PRN as needed for wheezing, 0 Refill(s) CYANOCOBALAMIN (VITAMIN B-12 PO) FESOTERODINE ER (TOVIAZ) 8 MG 24 HR TABLET Take 8 mg by mouth. GABAPENTIN (NEURONTIN) 100 MG CAPSULE HYDROCHLOROTHIAZIDE (HYDRODIURIL) 25 MG TABLET Take 25 mg by mouth daily. LOSARTAN (COZAAR) 100 MG TABLET Take 50 mg by mouth. MAGNESIUM OXIDE (MAG-OX) 400 MG TABLET Take 1 tablet by mouth daily. MECLIZINE (ANTIVERT) 25 MG TABLET 25 mg. METFORMIN (GLUCOPHAGE) 500 MG TABLET Take 500 mg by mouth in the morning and 500 mg in the evening. OMEPRAZOLE (PRILOSEC) [address] CAPSULE Take 1 capsule (20 mg) by mouth daily. Do not crush or chew. ONDANSETRON (ZOFRAN) 4 MG TABLET Take 4 mg by mouth as needed for nausea or vomiting. PEDIATRIC MULTIVITAMIN-IRON (FLINTSTONES COMPLETE) TABLET CHEWABLE SPLIT TABLET POTASSIUM CHLORIDE CR (KLOR-CON M20) 20 MEQ ER TABLET Take 1 tablet by mouth in the morning and 1 tablet before bedtime. RESPIRATORY THERAPY SUPPLIES (CARETOUCH CPAP & BIPAP HOSE) [facility] [place] RESPIRATORY THERAPY SUPPLIES (CARETOUCH CPAP & BIPAP HOSE) [facility] [place] SERTRALINE (ZOLOFT) 100 MG TABLET Take 2 tablets by mouth. VITAMIN D, CHOLECALCIFEROL, PO Take 4,000 Int'l Units by mouth. WARFARIN (COUMADIN) 2 MG TABLET Take 2 mg by mouth. as directed WARFARIN (COUMADIN) 5 MG TABLET Take 5 mg by mouth in the morning. Modified Medications No medications on file Discontinued Medications CALCIUM CITRATE-VITAMIN D (CALCIUM CITRATE + PO) Take 1 tablet by mouth in the morning and 1 tabletat noon and 1 tablet before bedtime. GLIPIZIDE XL (GLUCOTROL XL) 10 MG 24 HR TABLET Take 50 mg by mouth. OMEPRAZOLE OTC (PRILOSEC OTC) 20 MG EC TABLET 20 mg. SERTRALINE (ZOLOFT) 100 MG TABLET Take 100 mg by mouth. Medications ordered during this encounter: Outpatient Encounter Medications as of 02/15/2023 Medication Sig Dispense Refill Albuterol Sulfate (VENTOLIN HFA IN) 2 puff(s), Inhalation, q4h, PRN as needed for wheezing, 0 Refill(s) fesoterodine ER (Toviaz) 8 MG 24 hr tablet Take 8 mg by mouth. gabapentin (Neurontin) 100 MG capsule hydroCHLOROthiazide (HYDRODiuril) 25 MG tablet Take 25 mg by mouth daily. losartan (Cozaar) 100 MG tablet Take 50 mg by mouth. meclizine (Antivert) 25 MG tablet 25 mg. metFORMIN (Glucophage) 500 MG tablet Take 500 mg by mouth in the morning and 500 mg in the evening. omeprazole (PriLOSEC) [address] capsule Take 1 capsule (20 mg) by mouth daily. Do not crush or chew.(Patient taking differently: Take 20 mg by mouth daily. Do not crush or chew.) 90 capsule 1 ondansetron (Zofran) 4 MG tablet Take 4 mg by mouth as needed for nausea or vomiting. pediatric multivitamin-iron (Flintstones Complete) tablet chewable split tablet potassium chloride CR (Klor-Con M20) 20 MEQ ER tablet Take 1 tablet by mouth in the morning and 1 tablet before bedtime. [place]piratory Therapy [place] [facility] [place]AP [place] [facility] [place] sertraline (Zoloft) 100 MG tablet Take 2 tablets by mouth. VITAMIN D, CHOLECALCIFEROL, PO Take 4,000 Int'l Units by mouth. warfarin (Coumadin) 2 MG tablet Take 2 mg by mouth. as directed warfarin (Coumadin) 5 MG tablet Take 5 mg by mouth in the morning. Cyanocobalamin (VITAMIN B-12 PO) magnesium oxide (Mag-Ox) 400 mg tablet Take 1 tablet by mouth daily. nystatin (Mycostatin) 335655 UNIT/GM powder Apply 1 application. topically 2 times daily. Apply topically to affected area two times daily. 60 g 2 [DISCONTINUED] Calcium Citrate-Vitamin D (CALCIUM CITRATE + PO) Take 1 tablet by mouth in the morning and 1 tablet at noon and 1 tablet before bedtime. [DISCONTINUED] glipiZIDE XL (Glucotrol XL) 10 MG 24 hr tablet Take 50 mg by mouth. [DISCONTINUED] omeprazole OTC (PriLOSEC OTC) 20 MG EC tablet 20 mg. [DISCONTINUED] sertraline (Zoloft) 100 MG tablet Take 100 mg by mouth. No facility-administered encounter medications on file as of 02/15/2023. Orders Placed This Encounter Procedures Zinc Folate Magnesium Vitamin D 25 hydroxy Vitamin B12 Vitamin B1, whole blood Lipid panel Comprehensive metabolic panel CBC Ferritin Iron Visit Diagnoses: 1. Arthralgia of both knees 2. GERD without esophagitis 3. Primary hypertension 4. Type 2 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 without complication, unspecified whether mcfp insulin use (HCC) 5. MITZI (obstructive sleep apnea) 6. Deficiency of multiple nutrient elements 7. Morbid obesity with BMI of 40.0-44.9, adult ([facility]) Plan: 1). Diet and Exercise: Walking as able - has been limited by knee pain 2). Continue to monitor for signs and symptoms of GERD / Continue PPI 3). Labs: pending 4). Psych concerns : No 5). Excessive skin concerns: No - will discuss at 18 month visit once weight stability achieved. 6). If patient is a woman of childrearing age- 18-50. We discussed the importance of contraception during the first 12-18 months post op, and we discussed that fertility will increase following the procedure. Advised patient to discuss with her OBGYN regarding contraception. Patient counseled with good understanding verbalized. 7). Weight loss: Post-op Weight Metrics: %EBWL: % EBWL: 26% Weight Change Since Last Visit: Weight Change: 7 lbs Weight Change from Highest Pre-op Weight: Total Weight Change: -44 lbs She met with the dietitian today to review our vitamin and protein recommendations. Increase activity as recommended, the wounds are healed, no evidence of abdominal wall hernias. No nausea vomiting or dysphagia noted. Appropriate bowel function, discussed with her regarding contacting us for any questions or concerns. The lab slip was signed for the next visit, labs are PENDING, will call with results. Follow-up 18 months postop. Refer to Dr. Frazier for consideration of injectables - having a hard time with diet and activity - d/w dtr to help with meal plans. Rx for referral placed. I personally performed the evaluation and management of Blaise Monroe in the development of a treatment plan for this patient. I personally interviewed the patient and performed an individual physical examination. In addition, I discussed the patient's condition and treatment options with them. I have also reviewed and agree with the past medical, family and social history unless otherwise noted.All of the patient's questions were answered. I discussed/counseled the patient regarding the postoperative care plan for this patient. The patient was seen and examined independently and relevant data reviewed by myself. A full chart review wasperformed. Patient Care Team: Elissa Dial as PCP - General Tung Curry MD as Surgeon (General Surgery) * Margie Lemus - 02/15/2023 9:45 AM EDT [facility] PROGRESS NOTE POST WEIGHT LOSS SURGERY FOLLOW UP Patient: Blaise oMnroe Service Date: 02/15/2023 Patient is 12 month(s) s/p Sleeve Gastrectomy Today's Metrics: Post-Surgical Weight Loss Date: 02/15/23 Height: 5' 3.5 (161.3 cm) ([facility] - ht recheck) Weight: 241 lb 3.2 oz (109 kg) ([facility]) BMI: 42.05 Weight Change: 7 lbs Total Weight Change: -44 lbs % EBWL: 26% Comments: 12M Pre-op Weight Metrics: Pre-Surgical Weight Loss Initial Height: 5' 4 (162.6 cm) Initial Weight: 285 lb 3.2 oz (129 kg) Initial BMI: 48.95 [place] Body Weight: 117 lb 8 oz (53.3 kg) Surgery Date: 02/15/22 Pre-Surgical Height: 5' 4 (162.6 cm) Pre-Surgical Weight: 285 lb 3.2 oz (129 kg) Pre Surgery BMI: 48.95 Weight to Lose: 167 lb Post-op Weight Metrics: %EBWL: % EBWL: 26% Weight Change Since Last Visit: Weight Change: 7 lbs Weight Change from Highest Pre-op Weight: Total Weight Change: -44 lbs Patient has the following questions: getting back on track Pain: Patient rates pain on scale 0-10 as: 0 Exercise Compliance: Exercising: no If yes: Type: none Times per week: 0 Min per session: 0 Falls Risk Assessment Patient does take medications which affect BP or mental status Patient does have newly prescribed or changed dosage of medications within past 30 days which affect BP or mental status Patient has fallen in the past 2 months Patient does demonstrate unsteady gait Patient uses the following ambulatory assistive devices: wheelchair Patient states the presence of the following traits which increases risk of fall: wheel chair use Patient is not on home O2 Labs Completed: no - If NO, patient instructed to get labs drawn today or [facility] If YES: Labs completed at [facility]? no If yes see Labs Tab Labs completed at Non-[facility] facility? If yes see Encounters Tab - Orders only - Historical Provider - Date: Completed by: Margie Lemus * Magda Patel RD - 02/15/2023 9:45 AM EDT [facility] > 6 MONTH POST-OPERATIVE DIETITIAN VISIT Date: 02/15/23 Patient's weight decreased by: 44 lbs Patient does consume 5-6 small meals daily Patient s portions are adequate for current diet: -1 cup Protein requirements discussed- currently not tracking Current protein sources: eggs, sausage, chicken, turkey, cheese, cottage cheese, beef, beans, nuts Recommendations:none Fluid requirements discussed. Current Fluid Intake: 32-48 oz/day Patient does drink sugar-free, caffeine-free and carbonation-free fluids only. Patient does wait 30 minutes before and after meals to drink Exercise activities discussed. Patient does not currently exercise. She was reminded that regular exercise is critical part of a successful outcome following weight loss surgery. (Knee pain, frequentfalls, however active with ADLs) Behavioral/Emotional changes reviewed. Patient does feel comfortable with changes in eating behaviors and associated emotional changes. She was reminded that psychological counseling is available through the [facility] post-[facility]. Recent Nutrient Concerns and Vitamin Supplementation Changes: to have labs done- will monitor. Pt not compliant with vitamins/minerals. Agreeable to resuming; reviewed vitamin/mineral protocol. Notes/Comments: Increase water to 64 oz/day; try lemon or raul in tea. Resume supplements. Protein q meal snack. Pt doing ok. Pt encouraged to call/Mychart with questions. Visit completed by: Magda Patel RD * Yola King LPN - 02/15/2023 9:45 AM EDT See TE appointment with Dr Frazier sent to [facility] 260 FDT documented in this [facility]01-09-2023 Evaluation + Plan note Diagnostic Tests Pending * Urine Culture 10/02/22 [facility] 01-09-2023 Hospital Discharge instructions Patient Education 10/02/2022 03:55:52 FUNGAL INFECTION, Skin [General] Fungal Skin Infection (Tinea) A fungal infection is when too much fungus grows on or in the body. Fungus normally lives on the skin in small amounts and does not cause harm. But when too much grows on the skin, it causes an infection. This is also known as tinea. Fungal skin infections are common and not often serious. The infection often starts as a small red area the size of a pea. The skin may turn dry and flaky. The area may itch. As the fungus grows, it spreads out in a red [place]. Because of how it looks, fungal skin infection is often called ringworm, but it is not caused by a worm. Fungal skin infections can occur on many parts of the body. They can grow on the head, chest, arms, or legs. They can occuron the buttocks. On the feet, fungal infection is known as athlete s foot. It causes itchy, sometimes painful sores between the toes and the bottom or sides of the feet. In the groin, the rash is called jock itch. People with weakened immune systems can get a fungal infection more easily. This includes people with diabetes or HIV, or who are being treated for cancer. In these cases, the fungal infection can spread and cause severe illness. Fungal infections are also more common in people who are obese. In most cases, treatment is done with antifungal cream or ointment. If the infection is on your scalp, you may take oral medication. In some cases, a tiny piece of the skin (biopsy) may be taken. This is so it can be tested in a lab. Common fungal infections are treated with creams on the skin or oral medicine. Home care Follow all instructions when using antifungal cream or ointment on your skin. The health care provider may advise using cornstarch powder to keep your skin dry or petroleum jelly to provide a barrier. General care: If you were prescribed an oral medicine, read the patient information. Talk with the health care provider about the risks and side effects. Let your skin dry completely after bathing. Carefully dry your feet and between your toes. Dress in loose cotton clothing. Don t scratch the affected area. This can delay healing and may spread the infection. It can also cause a bacterial infection. Keep your skin clean, but don t wash the skin too much. This can irritate your skin. Keep in mind that it may take a week before the fungus starts to go away. It can take 2 to 4 weeks to fully clear. To prevent it from coming back, use the medicine until the rash is all gone. Follow-up care Follow up with your health care provider if the rash does not get better after 10 days of treatment. Also follow up if the rash spreads to other parts of your body. When to seek medical advice Call your health care provider right away if any of these occur: Fever of 100.4 F (38 C) or higher Redness or swelling that gets worse Pain that gets worse Foul-smelling fluid leaking from the skin [id number] [employer]. [address] [place] [address], [place] [address]. All rights reserved. This information is not intended as a substitute for professional medical care. Always follow yourhealthcare professional's instructions. Follow Up Care 10/02/2022 03:29:17 With:your OBGYN Address: When:2-4 days With:ELISSA DIAL DO Address: [address] [place], [place] [id number]- When:2-4 days [facility] 01-09-2023 Note Discharge Instructions Thank you for allowing [facility] to assist you with your healthcare needs. The following is importantdischarge information regarding your hospital visit. Diagnosis from Today's Visit Candidiasis Genital itching What to Do Next Instructions from Your Care Team today you had a urine culture. continue antibiotics until you discuss those results with your doctor. switch from the cream to the prescribed powder. take your remaining Diflucan. No qualifying data available. Post Acute Orders No qualifying data available. You Need to Schedule the Following Appointments Follow Up with your OBGYN When Within 2-4 days Where: Follow Up with ELISSA DIAL DO When Within 2-4 days [facility] [place] [id number]- Allergies Darvocet Tape Xarelto Zestril (Hives) clindamycin metoprolol (Hives) Medications Please ask your primary doctor or pharmacist before taking any other medication not listed, including over the counter drugs, herbal medications, vitamins and or supplements as they may interact withyour home medications. What How Much When Why Instructions Last Dose New nystatin topical (nystatin 100,000 units/ g topical powder) 1 application Topical Two (2) times a day Candidiasis Duration: 10 Days Printed Prescription Unchanged albuterol (Ventolin HFA MDI (90 mcg/ inh) inhalation aerosol) 2 puff(s) by inhalation Every 4 hours as needed for as needed for wheezing Unchanged atorvastatin (Lipitor 40 mg oral tablet) 1 tab(s) by mouth Once a day Unchanged cyanocobalamin (Vitamin B12) 2 tab(s) by mouth Once a day Unsure of dose Unchanged fenofibrate (fenofibrate 160 mg oral tablet) 1 tab(s) by mouth Once a day (in the evening) Unchanged fesoterodine (Toviaz 8 mg oral tablet, extended release) 1 tab(s) by mouth Once a day (in the morning) 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 Unchanged fluticasone-salmeterol (Wixela Inhub 250 mcg-50 mcg inhalation powder) 1 puff(s) by inhalation Two (2) times a day Unchanged gabapentin (Neurontin 100 mg oral capsule) 1 cap by mouth Three (3) times a day Unchanged glipiZIDE (glipiZIDE 5 mg oral tablet) 1 tab(s) by mouth Once a day before a meal Unchanged magnesium oxide (magnesium oxide 400 mg oral tablet) 1 tab(s) by mouth Once a day Unchanged meclizine (meclizine 25 mg oral tablet) 1 tab(s) by mouth Two (2) times a day as needed for as needed for dizziness Unchanged metFORMIN (metFORMIN 500 mg oral tablet (IR)) 1 tab(s) by mouth Two (2) times a day Unchanged multivitamin with minerals (Flintstones Complete oral tablet, chewable) 1 tab(s) by mouth Once a day Unchanged omeprazole (PriLOSEC OTC 20 mg oral delayed release tablet) 1 tab(s) by mouth Two (2) times a day Unchanged ondansetron (Zofran 8 mg oral tablet) 1 tab(s) by mouth Every 8 hours as needed for Nausea/Vomiting Unchanged rOPINIRole (rOPINIRole 3 mg oral tablet) 3 tab(s) by mouth Daily at bedtime Unchanged sertraline (Zoloft 100 mg oral tablet) 2 tab(s) by mouth Once a day (in the morning) Unchanged traMADol (traMADol 50 mg oral tablet) 1 tab(s) by mouth Every 6 hours as needed for for pain Unchanged warfarin (warfarin 2 mg oral tablet) 1 tab(s) by mouth Once a day Please take this list to your next doctor s visit. Bring all medications you take, including over the counter medications, herbals and other supplements with you to your doctor s visit. Patients and families are reminded to discard old lists and to update any records with all medication providers or retail pharmacies. Education Materials Fungal Skin Infection (Tinea) A fungal infection is when too much fungus grows on or in the body. Fungus normally lives on the skin in small amounts and does not cause harm. But when too much grows on the skin, it causes an infection. This is also known as tinea. Fungal skin infections are common and not often serious. The infection often starts as a small red area the size of a pea. The skin may turn dry and flaky. The area may itch. As the fungus grows, it spreads out in a red [place]. Because of how it looks, fungal skin infection is often called ringworm, but it is not caused by a worm. Fungal skin infections can occur on many parts of the body. They can grow on the head, chest, arms, or legs. They can occuron the buttocks. On the feet, fungal infection is known as athlete s foot. It causes itchy, sometimes painful sores between the toes and the bottom or sides of the feet. In the groin, the rash is called jock itch. People with weakened immune systems can get a fungal infection more easily. This includes people with diabetes or HIV, or who are being treated for cancer. In these cases, the fungal infection can spread and cause severe illness. Fungal infections are also more common in people who are obese. In most cases, treatment is done with antifungal cream or ointment. If the infection is on your scalp, you may take oral medication. In some cases, a tiny piece of the skin (biopsy) may be taken. This is so it can be tested in a lab. Common fungal infections are treated with creams on the skin or oral medicine. Home care Follow all instructions when using antifungal cream or ointment on your skin. The health care provider may advise using cornstarch powder to keep your skin dry or petroleum jelly to provide a barrier. General care: If you were prescribed an oral medicine, read the patient information. Talk with the health care provider about the risks and side effects. Let your skin dry completely after bathing. Carefully dry your feet and between your toes. Dress in loose cotton clothing. Don t scratch the affected area. This can delay healing and may spread the infection. It can also cause a bacterial infection. Keep your skin clean, but don t wash the skin too much. This can irritate your skin. Keep in mind that it may take a week before the fungus starts to go away. It can take 2 to 4 weeks to fully clear. To prevent it from coming back, use the medicine until the rash is all gone. Follow-up care Follow up with your health care provider if the rash does not get better after 10 days of treatment. Also follow up if the rash spreads to other parts of your body. When to seek medical advice Call your health care provider right away if any of these occur: Fever of 100.4 F (38 C) or higher Redness or swelling that gets worse Pain that gets worse Foul-smelling fluid leaking from the skin [id number] [employer]. [address] [place] [address]. All rights reserved. This information is not intended as a substitute for professional medical care. Always follow yourhealthcare professional's instructions. Additional Information VACCINATE! IT SAVES LIVES! Members of the community who have not yet received the COVID-19 vaccine and would like to receive it can visit one of [facility] vaccine clinics. There are many vaccine clinic locations within the [facility]. For locations and available times, please visit [email or web address]. It is important to note that some COVID mobile vaccine clinics are held outdoors and may be canceled in rainy orstormy conditions. To learn more about pediatric vaccinations (ages 5-11), we invite you to visit the [facility] webpage. https://[email or web address]/pages/[email or web address]-Netjublpvnc-Enhkdmqqdl-Amjqg-Rcz stions.htmlTo learn more about the COVID-19 vaccine, we invite you to visit the [facility] website for a list of frequently asked questions. https://[employer]/assets/Hbxfivwv-gky-Ayyquomu/ykycq-Chshxgu-Dmfbhiuiao _Asked-Questions.pdf [facility] Patient Portal Access Instructions: Stay connected with your healthcare team and access your personal medical information anytime with the [facility] Patient Portal. If you would like a full copy of your medical records please contact the [facility] Medical Records Department Sunday through Sunday between 8a.m. and 4:30p.m. Please follow the directions below to access the portal: 1.Access the email account you provided upon registration to the [facility].2.Look for an invitation email from [facility].3.Open the email and access the invitation link: Accept Invitation to [facility]4.Fill in the required milton to create your account. Sign into [email or web address] with your username and password that you created in the above steps to stay up to date. You can then view a summary of results, a summary of your visits, and the ability to download your summaries to your computer or send the information securely to a physician. Remember that your healthcare information is confidential, so carefully consider who you will allow to register on the [facility] Patient Portal for access to your information. You can also access the [facility] Patient Portal on the Mover robert. Simply click on Health Records under [employer] and then click on the [facility] logo. HOW TO SAFELY DISPOSE OF PRESCRIPTION MEDICATIONS Please use one of the following methods to safely dispose of your unused medications. 1.Use a drug disposal kit: the drug disposal pouch allows you to safely discard your old and unuseddrugs. Ask your nurse to give you one when you are discharged.2.Visit a local take-back location: Many local pharmacies and police departments have programs that collect old and unwanted prescriptiondrugs. Call your local pharmacy or go to http://bit.ly/3H6Hl5j to find one close to you.3.Make use of household items: Use cat litter or old coffee grounds to dispose medications if other options arenot available. Mix your drugs with these household products, seal them in an airtight container andthrow it into the garbage. Call [facility]: [phone] to be sure your drugs can be disposed of in this way. Some medicines may require a different approach.4.Never flush your medications down the toilet. IF YOU HAVE BEEN PRESCRIBED AN OPIOIDS FOR PAIN If you have been prescribed an opioid (such as hydrocodone, oxycodone or morphine), it is critical to understand the possible side effects and risks of opioid pain medications. Even when taken as directed, opioids can have several side effects including: Tolerance, meaning you might need to take more of a medication for the same pain relief. Nausea, vomiting and/or constipation. Sleepiness, dizziness, dry mouth, confusion, depression or itching. Physical dependence, meaning you have withdrawal symptoms when a medication is stopped ? this can develop within a few days. KNOW YOUR RESPONSIBILITIES It is important to know exactly how much and how often to take the opioid pain medications you are prescribed. Never take opioids in higher amounts or more often than prescribed. Do not combine opioids with alcohol or other drugs that cause drowsiness, such as benzodiazepines, also known as benzos,including diazepam and alprazolam, muscle relaxants or sleep aids. Never sell or share prescriptionopioids. This is illegal. Store opioids in a secure place and out of reach of others (including children, family, friends and visitors). The last page(s) of this document has been signed and retained as a CHART COPY Signatures Patient Education Materials FUNGAL INFECTION, Skin [General] Medication Leaflets My discharge plan and instructions have been reviewed and explained to me and IFER DEBORAH L understand my current condition and have read and understand these discharge instructions. I have received a written copy of the plan/instructions. If I have questions, I am aware that I should contactmy doctor. 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 Potassium is a chemical, called an electrolyte, that helps regulate the amount of fluid in the body. It also stimulates muscle contraction and helps nerves function properly. Most of the body's potassium is inside of cells, and only a very small amount is in the blood. Because the amount in the blood is so small, minor changes can be life-threatening. CAUSES Antibiotics. Diarrhea or vomiting. Using laxatives too much, which can cause diarrhea. Chronic kidney disease. Water pills (diuretics). Eating disorders (bulimia). Low magnesium level. Sweating a lot. SIGNS AND SYMPTOMS Weakness. Constipation. Fatigue. Muscle cramps. Mental confusion. Skipped heartbeats or irregular heartbeat (palpitations). Tingling or numbness. DIAGNOSIS Your health care provider can diagnose hypokalemia with blood tests. In addition to checking your potassium level, your health care provider may also check other lab tests. TREATMENT Hypokalemia can be treated with potassium supplements taken by mouth or adjustments in your currentmedicines. If your potassium level is very low, you may need to get potassium through a vein (IV) and be monitored in the hospital. A diet high in potassium is also helpful. Foods high in potassium are: Nuts, such as peanuts and pistachios. Seeds, such as sunflower seeds and pumpkin seeds. Peas, lentils, and dailey beans. Whole grain and bran cereals and breads. Fresh fruit and vegetables, such as apricots, avocado, bananas, cantaloupe, kiwi, oranges, tomatoes, asparagus, and potatoes. [place] and tomato juices. Red meats. Fruit yogurt. HOME CARE INSTRUCTIONS Take all medicines as prescribed by your health care provider. Maintain a healthy diet by including nutritious food, such as fruits, vegetables, nuts, whole grains, and lean meats. If you are taking a laxative, be sure to follow the directions on the label. SEEK MEDICAL CARE IF: Your weakness gets worse. You feel your heart pounding or racing. You are vomiting or having diarrhea. You are diabetic and having trouble keeping your blood glucose in the normal range. SEEK IMMEDIATE MEDICAL CARE IF: You have chest pain, shortness of breath, or dizziness. You are vomiting or having diarrhea for more than 2 days. You faint. MAKE SURE YOU: Understand these instructions. Will watch your condition. Will get help right away if you are not doing well or get worse. Document Released: 09/10/2006 Document Revised: 07/01/2014 Document Reviewed: 03/13/2014 [facility] Patient Information 2015 [email or web address]. This information is not intended to replace advicegiven to you by your health care provider. Make sure you discuss any questions you have with your health care provider. Follow Up Care 04/18/2022 13:23:13 With:ELISSA DIAL DO Address: [address] [place] [address] When:05/10/2022 08:50:00 Comments:This appointment will serve as your post-hospital follow-up appointment. Have your BMP and magnesium rechecked at this visit. Also, discuss your diabetes medications as they may need adjusted further. [facility] 07-28-2022 Note Discharge Instructions Thank you for allowing [facility] to assist you with your healthcare needs. The following is importantdischarge information regarding your hospital visit. Your Care Team [facility] Your Diagnosis Hypokalemia Hypomagnesemia Chest pain Palpitations Diabetes mellitus type 2 Hypertension Irritable bowel syndrome Factor 5 Leiden mutation, heterozygous Sleep apnea Shortness of breath Restless leg syndrome Asthma Abnormal laboratory findings What to do next Follow Up Appointments Follow Up with ELISSA DIAL DO When 05/10/2022 08:50 AM EDT Why: This appointment will serve as your post-hospital follow-up appointment. Have your BMP and magnesium rechecked at this visit. Also, discuss your diabetes medications as they may need adjusted further. Where: [address] [place] [id number]- The Following Activity and Diet Have Been Ordered for You Discharge Activity - Ordered -- NO activity restrictions, 04/20/22 18:41:00 EDT Discharge Diet - Ordered -- Type of Diet: Regular Diet, 04/20/22 18:41:00 EDT The Following Treatments Have Been Ordered for You Discharge Labs Discharge Outpatient Labwork - Ordered -- BMP and magnesium level, hypokalemia, hypomag, Results Notify to: ELISSA DIAL DO, April 24, 04/20/22 18:41:00 EDT Discharge Radiology No qualifying data available. Other Therapies No qualifying data available. Post Acute Orders No qualifying data available. Allergies Darvocet Tape Xarelto Zestril (Hives) clindamycin metoprolol (Hives) Medications Please ask your primary doctor or pharmacist before taking any other medication not listed, including over the counter drugs, herbal medications, vitamins and or supplements as they may interact withyour home medications. What How Much When Instructions Last Dose New glipiZIDE (glipiZIDE 5 mg oral tablet) 1 tab(s) by mouth Once a day before a meal Pickup at [facility] #[id number] NOT GIVEN New potassium bicarbonate (Effer-K 25 mEq oral tablet, effervescent) 2 tab(s) by mouth Once a day Pickup at [facility] #[id number] 04/20/22 @830AM Changed albuterol (Ventolin HFA MDI (90 mcg/ inh) inhalation aerosol) 2 puff(s) by inhalation Every 4 hours as needed for as needed for wheezing NOT GIVEN Changed atorvastatin (Lipitor 40 mg oral tablet) 1 tab(s) by mouth Once a day 04/19/22 @930PM Changed fesoterodine (Toviaz 8 mg oral tablet, extended release) 1 tab(s) by mouth Once a day (in the morning) 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 NOT GIVEN Changed fluticasone-salmeterol (Wixela Inhub 250 mcg-50 mcg inhalation powder) 1 puff(s) by inhalation Two (2) times a day NOT GIVEN Changed gabapentin (Neurontin 100 mg oral capsule) 1 cap by mouth Three (3) times a day 04/20/22 @255PM Changed metFORMIN (metFORMIN 500 mg oral tablet (IR)) 1 tab(s) by mouth Two (2) times a day Pickup at [facility] #[id number] NOT GIVEN Changed sertraline (Zoloft 100 mg oral tablet) 2 tab(s) by mouth Once a day (in the morning) 04/20/22 @9AM Changed warfarin (warfarin 2 mg oral tablet) 1 tab(s) by mouth Once a day 04/20/22 @5PM Unchanged cyanocobalamin (Vitamin B12) 2 tab(s) by mouth Once a day Unsure of dose NOT GIVEN Unchanged fenofibrate (fenofibrate 160 mg oral tablet) 1 tab(s) by mouth Once a day (in the evening) NOT GIVEN Unchanged magnesium oxide (magnesium oxide 400 mg oral tablet) 1 tab(s) by mouth Once a day 04/20/22 @5PM Unchanged meclizine (meclizine 25 mg oral tablet) 1 tab(s) by mouth Two (2) times a day as needed for as needed for dizziness NOT GIVEN Unchanged multivitamin with minerals (Flintstones Complete oral tablet, chewable) 1 tab(s) by mouth Once a day NOT GIVEN Unchanged omeprazole (PriLOSEC OTC 20 mg oral delayed release tablet) 1 tab(s) by mouth Two (2) times a day NOT GIVEN Unchanged ondansetron (Zofran 8 mg oral tablet) 1 tab(s) by mouth Every 8 hours as needed for Nausea/Vomiting 04/20/22 @1PM Unchanged rOPINIRole (rOPINIRole 3 mg oral tablet) 3 tab(s) by mouth Daily at bedtime 04/19/22 @930PM Unchanged traMADol (traMADol 50 mg oral tablet) 1 tab(s) by mouth Every 6 hours as needed for for pain NOT GIVEN Pharmacy Information [id number]: [address], [place] [id number] [phone] What How Much When Comments Stop Taking ciprofloxacin (Cipro 500 mg oral tablet) 1 tab(s) by mouth Two (2) times a day Stop Taking dilTIAZem (DilTIAZem (Eqv-Cardizem CD) 180 mg/ 24 hours oral capsule, extended release) Stop Taking hydroCHLOROthiazide (hydroCHLOROthiazide 25 mg oral tablet) 1 tab(s) by mouth Once a day Stop Taking metroNIDAZOLE (metroNIDAZOLE 500 mg oral tablet) 1 tab(s) by mouth Three (3) times a day Please take this list to your next doctor s visit. Bring all medications you take, including over the counter medications, herbals and other supplements with you to your doctor s visit. Patients and families are reminded to discard old lists and to update any records with all medication providers or retail pharmacies. Education Materials Hypokalemia Hypokalemia means that the amount of potassium in the blood is lower than normal. Potassium is a chemical, called an electrolyte, that helps regulate the amount of fluid in the body. It also stimulates muscle contraction and helps nerves function properly. Most of the body's potassium is inside of cells, and only a very small amount is in the blood. Because the amount in the blood is so small, minor changes can be life-threatening. CAUSES Antibiotics. Diarrhea or vomiting. Using laxatives too much, which can cause diarrhea. Chronic kidney disease. Water pills (diuretics). Eating disorders (bulimia). Low magnesium level. Sweating a lot. SIGNS AND SYMPTOMS Weakness. Constipation. Fatigue. Muscle cramps. Mental confusion. Skipped heartbeats or irregular heartbeat (palpitations). Tingling or numbness. DIAGNOSIS Your health care provider can diagnose hypokalemia with blood tests. In addition to checking your potassium level, your health care provider may also check other lab tests. TREATMENT Hypokalemia can be treated with potassium supplements taken by mouth or adjustments in your currentmedicines. If your potassium level is very low, you may need to get potassium through a vein (IV) and be monitored in the hospital. A diet high in potassium is also helpful. Foods high in potassium are: Nuts, such as peanuts and pistachios. Seeds, such as sunflower seeds and pumpkin seeds. Peas, lentils, and dailey beans. Whole grain and bran cereals and breads. Fresh fruit and vegetables, such as apricots, avocado, bananas, cantaloupe, kiwi, oranges, tomatoes, asparagus, and potatoes. [place] and tomato juices. Red meats. Fruit yogurt. HOME CARE INSTRUCTIONS Take all medicines as prescribed by your health care provider. Maintain a healthy diet by including nutritious food, such as fruits, vegetables, nuts, whole grains, and lean meats. If you are taking a laxative, be sure to follow the directions on the label. SEEK MEDICAL CARE IF: Your weakness gets worse. You feel your heart pounding or racing. You are vomiting or having diarrhea. You are diabetic and having trouble keeping your blood glucose in the normal range. SEEK IMMEDIATE MEDICAL CARE IF: You have chest pain, shortness of breath, or dizziness. You are vomiting or having diarrhea for more than 2 days. You faint. MAKE SURE YOU: Understand these instructions. Will watch your condition. Will get help right away if you are not doing well or get worse. Document Released: 09/10/2006 Document Revised: 07/01/2014 Document Reviewed: 03/13/2014 ExitCare Patient Information 2015 [place], [facility]. This information is not intended to replace advicegiven to you by your health care provider. Make sure you discuss any questions you have with your health care provider. Additional Information VACCINATE! IT SAVES LIVES! Members of the community who have not yet received the COVID-19 vaccine and would like to receive it can visit one of [facility] vaccine clinics. There are many vaccine clinic locations within the [facility]. For locations and available times, please visit [email or web address]/. It is important to note that some COVID mobile vaccine clinics are held outdoors and may be canceled in rainy or stormy conditions. To learn more about pediatric vaccinations (ages 5-11), we invite you to visit the [facility] webpage. [email or web address]/pages/[email or web address]-Mjsbi-Dst stions.htmlTo learn more about the COVID-19 vaccine, we invite you to visit the [facility] website for a list of frequently asked questions. [email or web address]/[email or web address] _Asked-[email or web address].pdf [facility] Patient Portal Access Instructions: Stay connected with your healthcare team and access your personal medical information anytime with the [facility] Patient Portal.If you would like a full copy of your medical records, please contact the [facility] Medical Records Department, Sunday through Sunday between 8a.m. and 4:30p.m. Please follow the directions below to access the portal: 1.Access the email account you provided upon registration to the [facility].2.Look for an invitation email from [facility].3.Open the email and access the invitation link: Accept Invitation to [facility]4.Fill in the required milton to create your account. Sign into [email or web address] with your username and password that you created in the above steps to stay up to date. You can then view a summary of results, a summary of your visits, and the ability to download your summaries to your computer or send the information securely to a physician. Remember that your healthcare information is confidential, so carefully consider who you will allow to register on the [facility] Patient Portal for access to your information. You can also access the [facility] Patient Portal on the Mover robert. Simply click on Health Records under [employer] and then click on the [facility] logo. HOW TO SAFELY DISPOSE OF PRESCRIPTION MEDICATIONS Please use one of the following methods to safely dispose of your unused medications. 1.Use a drug disposal kit: the drug disposal pouch allows you to safely discard your old and unuseddrugs. Ask your nurse to give you one when you are discharged.2.Visit a local take-back location: Many local pharmacies and police departments have programs that collect old and unwanted prescriptiondrugs. Call your local pharmacy or go to http://[employer].Post-A-Vox/2Y9Iv7j to find one close to you.3.Make use of household items: Use cat litter or old coffee grounds to dispose medications if other options arenot available. Mix your drugs with these household products, seal them in an airtight container andthrow it into the garbage. Call [facility]: [phone] to be sure your drugs can be disposed of in this way. Some medicines may require a different approach.4.Never flush your medications down the toilet. IF YOU HAVE BEEN PRESCRIBED AN OPIOID FOR PAIN If you have been prescribed an opioid (such as hydrocodone, oxycodone or morphine), it is critical to understand the possible side effects and risks of opioid pain medications. Even when taken as directed, opioids can have several side effects including: Tolerance, meaning you might need to take more of a medication for the same pain relief. Nausea, vomiting and/or constipation. Sleepiness, dizziness, dry mouth, confusion, depression or itching. Physical dependence, meaning you have withdrawal symptoms when a medication is stopped, can develop within a few days. KNOW YOUR RESPONSIBILITIES It is important to know exactly how much and how often to take the opioid pain medications you are prescribed. Never take opioids in higher amounts or more often than prescribed. Do not combine opioids with alcohol or other drugs that cause drowsiness, such as benzodiazepines, also known as benzos, including diazepam and alprazolam, muscle relaxants or sleep aids. Never sell or share prescription opioids. This is illegal. Store opioids in a secure place and out of reach of others (including children, family, friends and visitors). The last page of this document has been signed and retained as a CHART COPY. Signatures Patient Education Materials Hypokalemia Medication Leaflets My discharge plan and instructions have been reviewed and explained to me and I,HEAVEN MONROE understand my current condition and have read and understand these discharge instructions. I have received a written copy of the plan/instructions. If I have questions, I am aware that I should contactmy doctor. 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 She states that she feels better thismorning and is actually hungry for a change. She denies any nausea this morning. Patient reports that she had approximately 3-4 bowel movements yesterday. She states that they are not loose but more formed. She adds that she seems to have a bowel movement right after she eats since she had the bariatric surgery. She is supposed to go for her stress test this morning but we will have to find out if she can go with a blood sugar so low. Patient denies any further chest pain. She was updated on her low potassium level this morning and advised that we will have to order more replacement. Patient denies any fever, chills, cough, shortness of breath, chest pain, abdominal pain, or nausea. All questions answered. Objective Vitals and Measurements T: 36.4 C (Oral) TMIN: 36.2 C (Oral) TMAX: 37.0 C (Oral) HR: 54(Monitored) RR: 18 BP: 105/55 SpO2: 96% WT: 106.5 kg Intake and Output 7AM Yesterday to 7AM Today Intake and Output (Last 24 hours) Intake Oral Intake 120.00 Output Urine Count 2.00 Total Summary Total Intake 120.00 Total Output 0.00 Fluid Balance 120.00 Physical Exam General: No acute distress. Patient is alert and appropriate. Skin: No rash. Skin is warm, dry and intact. HEENT: Head is normocephalic, atraumatic. Pupils are equal, round and reactive. Mouth is without lesion. Nose without septal deviation. Neck: Supple. No lymphadenopathy, thyromegaly. Lungs: Bilaterally clear but diminished without crepitation or wheeze. Unlabored. Heart: Heart is regular rhythm, S1, S2. No murmurs, gallops or rubs. Abdomen: Abdomen is soft, nontender, obese. Bowels sounds present in all quadrants. Extremities: No clubbing, cyanosis, or edema. Peripheral pulses palpable. No calf tenderness. Neurological: Patient is alert and oriented to person, place and time. Weight Current Weight Dosing Weight: 106 kg (04/18/22) Current Weight: 106.5 kg (04/20/22) Dosing Weight: 105.4 kg (04/18/22) Current Weight: 106.6 kg (04/19/22) Medications Medications (24) Active Scheduled: (13) albuterol 0.083% Soln UD (2.5mg/3 mL) 2.5 mg 3 mL, Inhalation, QIDRT atorvastatin 10 mg tablet 10 mg 1 tab(s), Oral, qPM budesonide 0.5 mg/2 mL Susp UD 0.5 mg 2 mL, Inhalation, BIDRT docusate sodium 100 mg Capsule 100 mg 1 cap(s), Oral, BID furosemide 40 mg tablet 40 mg 1 tab(s), Oral, qDay gabapentin 300 mg Capsule 300 mg 1 cap(s), Oral, TID insulin glargine 100 units/ml solution 40 unit(s) 0.4 mL, Subcutaneous, qHS insulin lispro 100 units/mL Soln (3 mL) Give 0-5 units/dose, Subcutaneous, TIDAC oxybutynin 5 mg ER tablet 10 mg 2 tab(s), Oral, qDay potassium bicarbonate -citric acid 25 mEq EFF tablet 50 mEq 2 tab(s), Oral, Once potassium chloride (PMX) 20 mEq/100 mL 40 mEq 200 mL, IV Piggyback, Once rOPINIRole 1 mg tablet 9 mg 9 tab(s), Oral, qHS sertraline 100 mg tablet 100 mg 1 tab(s), Oral, BID Continuous: (0) PRN: (11) acetaminophen 325 mg Tablet 650 mg 2 tab(s), Oral, q4h acetaminophen 325 mg Tablet 650 mg 2 tab(s), Oral, q4h albuterol - ipratropium 2.5 mg-0.5 mg/3 mL Inhal Sue UD 3 mL, Inhalation, q4hRT benzonatate 100 mg Capsule 100 mg 1 cap(s), Oral, TID calcium carbonate 500 mg Chewable 500 mg 1 tab(s), Chewed, TID guaifenesin 100 mg/5 mL 120 mL liquid 200 mg 10 mL, Oral, q4h magnesium sulfate PMX 1 gram(s) 25 mL, IV Piggyback, AsDirected meclizine 25 mg Tablet 25 mg 1 tab(s), Oral, BID melatonin 3 mg tablet 6 mg 2 tab(s), Oral, qHS ondansetron 2 mg/ 1 mL 2 mL INJ 4 mg 2 mL, IV Push, q4h tramadol 50 mg Tablet 50 mg 1 tab(s), Oral, q6h Lab Results 04/20 06:05 WBC: 7.8 Hgb: 10.6 L Hct: 30.8 L Platelet: 345 Neutrophil %: 61.5 Protime: 35.0 H PT International Ratio: 3.0 H Glucose Level: 212 H Sodium Level: 142 Potassium Level: 2.7 C BUN: 13 Creatinine Lvl (s): 0.94 04/19 16:53 Potassium Level: 3.1 L 04/19 09:01 Glucose Level: 268 H Sodium Level: 143 Potassium Level: 3.0 L BUN: 11 Creatinine Lvl (s): 0.87 04/19 05:33 WBC: 8.2 Hgb: 10.6 L Hct: 31.1 L Platelet: 344 Neutrophil %: 65.2 Protime: 44.8 H PT International Ratio: 3.9 H EKG Electrocardiogram [AOH] (EKG [AOH]) - InProcess -- 04/19/22 9:52:00 EDT, 04/19/22 9:52:00 EDT Assessment/Plan 1. Hypokalemia Acute, new onset, likely secondary to frequent stools s/p bariatric surgery questionable dumping syndrome *Blood sugars have been in the upper 200's, 250-290. *Patient administered 50 meq Effer-K PO and 40 meq potassium chloride IV in the ED. *Administered an additional 40 meq potassium chloride IV. *Repeat potassium 2.7 this morning. *Replace with Effer-K 50 meq PO x 1 and 40 meq potassium chloride IV. *Recommend a high fibert diet, high protein diet. *Repeat potassium level later. *Possible d/c home later. 2. Hypomagnesemia Acute, new onset *Patient administered 3 grams magnesium sulfate IV in the ED. *Magnesium 1.8 this morning. *Resume home magnesium supplement today. *Repeat magnesium level in the am. 3. Chest pain Acute on chronic, ongoing for last few months *Serial troponin x 3 - all negative. *HEART Score 6. *Patient had a stress test a few years ago that was inconclusive followed by a cath that was negative. *Stress test negative. *Follow-up with [facility]. 4. Palpitations Acute, unknown etiology, possibly related to electrolyte disturbances, resolved. *Monitor on telemetry. *Improved today. 5. Diabetes mellitus type 2 Chronic, running 250-290 *Blood sugar checks before meals and at bedtime. *Cover with low-dose sliding scale insulin. *Continue diabetic diet as tolerated. *Continue current home medication. *Blood sugars better with Lantus at night. *Will discuss with patient going home on Lantus/Levemir SC. *HgbA1c pending. 6. Hypertension Chronic, controlled *Continue current home medications. 7. Irritable bowel syndrome Chronic, uncontrolled *Takes Pepto-Bismol at home for this. *Monitor. *May need to follow-up with PCP for this as not controlled. 8. Factor 5 Leiden mutation, heterozygous Chronic *INR 3.0 today. *Resume Coumadin at 2 mg PO today. *Repeat INR in am. 9. Sleep apnea Chronic *Continue CPAP at bedtime. 10. Shortness of breath Chronic, possibly secondary to asthma *Continue duoneb aerosols as needed for shortness of breath. 11. Restless leg syndrome Chronic *Continue current home medication. 12. Asthma Chronic *Continue duoneb aerosols as needed for shortness of breath. Possible d/c home later with Effer-K 50 meq daily. Continue current home dose of Mag-Ox. Patient will need to follow-up with her bariatric surgeon. Patient would like to remain a FULL CODE. DVT prophylaxis with Coumadin. This case was discussed with collaborating physician, Dr. Bri Leigh. Time Spent 35 minutes. Digitally Signed by ANNE BHAKTA on 04/20/2022 11:56 AM [facility]07-28-2022 Note ORIGINAL NM MYOCARDIAL SPECT STRESS/REST CLINICAL STATEMENT: cp TECHNIQUE: Lexiscan dose:0.4 mg Radiopharmaceutical (stress): Tc-99m Sestamibi Dose:30.1 mCi Radiopharmaceutical (rest): Tc-99m Sestamibi Dose:10.8 mCi SPECT acquisition and processing Reconstruction and reorientation of SPECT images into short axis, vertical and horizontal long axisplanes Quantitative LVEF assessment COMPARISON:11/15/2007 REPORT:Rotating planar images demonstrate breast attenuation. SPECT perfusion images demonstrate mid to distal anterior/anteroseptal defect in rest images and apical defect in stress images likely representing shifting breast attenuation. No evidence of transient ischemic dilatation. Gated SPECT images demonstrate normal wall motion and wall thickening. End-diastolic volume is 87 mL. Ejection fraction is 63%. IMPRESSION: 1. No evidence of ischemia are prior infarction. 2. Shifting breast attenuation artifact noted. 3. Normal systolic function with ejection fraction of 63%. 4. No significant changes compared to prior study in 2007. Interpreted By: Mir Solo MD Preliminary Report By: Mir Solo MD Electronically Signed By: Mir Solo MD Dictated Date: 04/20/2022 11:32:07 AM Prelim Date: 04/20/2022 11:32:07 AM Sign Date: 04/20/2022 11:36:07 AM Ordering Provider:Anne Bhakta [facility]07-28-2022 Note ORIGINAL NM MYOCARDIAL SPECT STRESS/REST CLINICAL STATEMENT: cp TECHNIQUE: Lexiscan dose:0.4 mg Radiopharmaceutical (stress): Tc-99m Sestamibi Dose:30.1 mCi Radiopharmaceutical (rest): Tc-99m Sestamibi Dose:10.8 mCi SPECT acquisition and processing Reconstruction and reorientation of SPECT images into short axis, vertical and horizontal long axisplanes Quantitative LVEF assessment COMPARISON:11/15/2007 REPORT:Rotating planar images demonstrate breast attenuation. SPECT perfusion images demonstrate mid to distal anterior/anteroseptal defect in rest images and apical defect in stress images likely representing shifting breast attenuation. No evidence of transient ischemic dilatation. Gated SPECT images demonstrate normal wall motion and wall thickening. End-diastolic volume is 87 mL. Ejection fraction is 63%. IMPRESSION: 1. No evidence of ischemia are prior infarction. 2. Shifting breast attenuation artifact noted. 3. Normal systolic function with ejection fraction of 63%. 4. No significant changes compared to prior study in 2007. Interpreted By: Mir Solo MD Preliminary Report By: Mir Solo MD Electronically Signed By: Mir Solo MD Dictated Date: 04/20/2022 11:32:07 AM Prelim Date: 04/20/2022 11:32:07 AM Sign Date: 04/20/2022 11:36:07 AM Ordering Provider:[facility]07-28-2022 Note DATE OF PROCEDURE: 04/20/2022 PROCEDURE: Lexiscan sestamibi myocardial perfusion imaging. FINDINGS: Resting heart rate 76. Resting blood pressure 110/64. Baseline EKG shows sinus rhythm with PACs with nonspecific ST-T changes. The patient received 0.4 mg of intravenous Lexiscan. The patient had borderline ST segment changes from baseline, which did not meet ischemic threshold. No significant arrhythmias noted. IMPRESSION: 1. No evidence of Lexiscan-induced ischemia per EKG criteria. 2. Nuclear perfusion images to be reported separately. SORIN SOLO MD PG/NTS JOB#: [id number] DICTATION ID#: [id number] Digitally Signed by YESSENIA SOLO MD on 04/20/2022 11:17 AM [facility] Ethelaleida [id number] Note Date of Service 04/20/2022 Chief Complaint Hypokalemia Subjective Patient seen and evaluated while resting in bed this morning. She states that she feels better thismorning and is actually hungry for a change. She denies any nausea this morning. Patient reports that she had approximately 3-4 bowel movements yesterday. She states that they are not loose but more formed. She adds that she seems to have a bowel movement right after she eats since she had the bariatric surgery. She is supposed to go for her stress test this morning but we will have to find out if she can go with a blood sugar so low. Patient denies any further chest pain. She was updated on her low potassium level this morning and advised that we will have to order more replacement. Patient denies any fever, chills, cough, shortness of breath, chest pain, abdominal pain, or nausea. All questions answered. Objective Vitals and Measurements T: 36.4 C (Oral) TMIN: 36.2 C (Oral) TMAX: 37.0 C (Oral) HR: 54(Monitored) RR: 18 BP: 105/55 SpO2: 96% WT: 106.5 kg Intake and Output 7AM Yesterday to 7AM Today Intake and Output (Last 24 hours) Intake Oral Intake 120.00 Output Urine Count 2.00 Total Summary Total Intake 120.00 Total Output 0.00 Fluid Balance 120.00 Physical Exam General: No acute distress. Patient is alert and appropriate. Skin: No rash. Skin is warm, dry and intact. HEENT: Head is normocephalic, atraumatic. Pupils are equal, round and reactive. Mouth is without lesion. Nose without septal deviation. Neck: Supple. No lymphadenopathy, thyromegaly. Lungs: Bilaterally clear but diminished without crepitation or wheeze. Unlabored. Heart: Heart is regular rhythm, S1, S2. No murmurs, gallops or rubs. Abdomen: Abdomen is soft, nontender, obese. Bowels sounds present in all quadrants. Extremities: No clubbing, cyanosis, or edema. Peripheral pulses palpable. No calf tenderness. Neurological: Patient is alert and oriented to person, place and time. Weight Current Weight Dosing Weight: 106 kg (04/18/22) Current Weight: 106.5 kg (04/20/22) Dosing Weight: 105.4 kg (04/18/22) Current Weight: 106.6 kg (04/19/22) Medications Medications (24) Active Scheduled: (13) albuterol 0.083% Soln UD (2.5mg/3 mL) 2.5 mg 3 mL, Inhalation, QIDRT atorvastatin 10 mg tablet 10 mg 1 tab(s), Oral, qPM budesonide 0.5 mg/2 mL Susp UD 0.5 mg 2 mL, Inhalation, BIDRT docusate sodium 100 mg Capsule 100 mg 1 cap(s), Oral, BID furosemide 40 mg tablet 40 mg 1 tab(s), Oral, qDay gabapentin 300 mg Capsule 300 mg 1 cap(s), Oral, TID insulin glargine 100 units/ml solution 40 unit(s) 0.4 mL, Subcutaneous, qHS insulin lispro 100 units/mL Soln (3 mL) Give 0-5 units/dose, Subcutaneous, TIDAC oxybutynin 5 mg ER tablet 10 mg 2 tab(s), Oral, qDay potassium bicarbonate -citric acid 25 mEq EFF tablet 50 mEq 2 tab(s), Oral, Once potassium chloride (PMX) 20 mEq/100 mL 40 mEq 200 mL, IV Piggyback, Once rOPINIRole 1 mg tablet 9 mg 9 tab(s), Oral, qHS sertraline 100 mg tablet 100 mg 1 tab(s), Oral, BID Continuous: (0) PRN: (11) acetaminophen 325 mg Tablet 650 mg 2 tab(s), Oral, q4h acetaminophen 325 mg Tablet 650 mg 2 tab(s), Oral, q4h albuterol - ipratropium 2.5 mg-0.5 mg/3 mL Inhal Sue UD 3 mL, Inhalation, q4hRT benzonatate 100 mg Capsule 100 mg 1 cap(s), Oral, TID calcium carbonate 500 mg Chewable 500 mg 1 tab(s), Chewed, TID guaifenesin 100 mg/5 mL 120 mL liquid 200 mg 10 mL, Oral, q4h magnesium sulfate PMX 1 gram(s) 25 mL, IV Piggyback, AsDirected meclizine 25 mg Tablet 25 mg 1 tab(s), Oral, BID melatonin 3 mg tablet 6 mg 2 tab(s), Oral, qHS ondansetron 2 mg/ 1 mL 2 mL INJ 4 mg 2 mL, IV Push, q4h tramadol 50 mg Tablet 50 mg 1 tab(s), Oral, q6h Lab Results 04/20 06:05 WBC: 7.8 Hgb: 10.6 L Hct: 30.8 L Platelet: 345 Neutrophil %: 61.5 Protime: 35.0 H PT International Ratio: 3.0 H Glucose Level: 212 H Sodium Level: 142 Potassium Level: 2.7 C BUN: 13 Creatinine Lvl (s): 0.94 04/19 16:53 Potassium Level: 3.1 L 04/19 09:01 Glucose Level: 268 H Sodium Level: 143 Potassium Level: 3.0 L BUN: 11 Creatinine Lvl (s): 0.87 04/19 05:33 WBC: 8.2 Hgb: 10.6 L Hct: 31.1 L Platelet: 344 Neutrophil %: 65.2 Protime: 44.8 H PT International Ratio: 3.9 H EKG Electrocardiogram [AOH] (EKG [AOH]) - InProcess -- 04/19/22 9:52:00 EDT, 04/19/22 9:52:00 EDT Assessment/Plan 1. Hypokalemia Acute, new onset, likely secondary to frequent stools s/p bariatric surgery questionable dumping syndrome *Blood sugars have been in the upper 200's, 250-290. *Patient administered 50 meq Effer-K PO and 40 meq potassium chloride IV in the ED. *Administered an additional 40 meq potassium chloride IV. *Repeat potassium 2.7 this morning. *Replace with Effer-K 50 meq PO x 1 and 40 meq potassium chloride IV. *Recommend a high fibert diet, high protein diet. *Repeat potassium level later. *Possible d/c home later. 2. Hypomagnesemia Acute, new onset *Patient administered 3 grams magnesium sulfate IV in the ED. *Magnesium 1.8 this morning. *Resume home magnesium supplement today. *Repeat magnesium level in the am. 3. Chest pain Acute on chronic, ongoing for last few months *Serial troponin x 3 - all negative. *HEART Score 6. *Patient had a stress test a few years ago that was inconclusive followed by a cath that was negative. *Stress test negative. *Follow-up with [facility]. 4. Palpitations Acute, unknown etiology, possibly related to electrolyte disturbances, resolved. *Monitor on telemetry. *Improved today. 5. Diabetes mellitus type 2 Chronic, running 250-290 *Blood sugar checks before meals and at bedtime. *Cover with low-dose sliding scale insulin. *Continue diabetic diet as tolerated. *Continue current home medication. *Blood sugars better with Lantus at night. *Will discuss with patient going home on Lantus/Levemir SC. *HgbA1c pending. 6. Hypertension Chronic, controlled *Continue current home medications. 7. Irritable bowel syndrome Chronic, uncontrolled *Takes Pepto-Bismol at home for this. *Monitor. *May need to follow-up with PCP for this as not controlled. 8. Factor 5 Leiden mutation, heterozygous Chronic *INR 3.0 today. *Resume Coumadin at 2 mg PO today. *Repeat INR in am. 9. Sleep apnea Chronic *Continue CPAP at bedtime. 10. Shortness of breath Chronic, possibly secondary to asthma *Continue duoneb aerosols as needed for shortness of breath. 11. Restless leg syndrome Chronic *Continue current home medication. 12. Asthma Chronic *Continue duoneb aerosols as needed for shortness of breath. Possible d/c home later with Effer-K 50 meq daily. Continue current home dose of Mag-Ox. Patient will need to follow-up with her bariatric surgeon. Patient would like to remain a FULL CODE. DVT prophylaxis with Coumadin. This case was discussed with collaborating physician, Dr. Bri Leigh. Time Spent 35 minutes. Digitally Signed by ANNE BHAKTA on 04/20/2022 11:56 AM [facility]07-27-2022 Note Date of Service 04/19/2022 Chief Complaint No complaints this morning. Subjective Patient seen and evaluated while resting in bed. She states that she is actually feeling better this morning. She has had a few stools overnight but not as much as prior to admission. She still gets nauseated intermittently. Patient questioned about her chest pain. She states that it is mostly midsternal but sometimes radiates into the left side of her chest. She adds that a few nights ago she had upper back pain that radiated into her chest. She had a stress test a few years ago that was inconclusive. She subsequently had a cardiac cath which was negative. Patient advised that her troponin has been negative x 2 but that her HEART score is 6. She really should stay to have a stress test to make sure that this is not a cardiac cause. Patient is agreeable to this. We have not gotten the results of her BMP and potassium level so she may require more replacement today. Patient denies any new problems or concerns. All questions answered. Objective Vitals and Measurements T: 36.4 C (Oral) TMIN: 36.4 C (Oral) TMAX: 37.3 C (Oral) HR: 58(Monitored) RR: 18 BP: 106/66 SpO2: 95% HT: 162.5 cm WT: 106.6 kg BMI: 39.91 Intake and Output 7AM Yesterday to 7AM Today Intake and Output (Last 24 hours) Intake Output Total Summary Total Intake 0.00 Total Output 0.00 Fluid Balance 0.00 Physical Exam General: No acute distress. Patient is alert and appropriate. Skin: No rash. Skin is warm, dry and intact. HEENT: Head is normocephalic and atraumatic. No lesions. Pupils equal in size. Extraocular movements within normal limits. Nose: No septal deviation. Mouth: Oropharynx mucosa is without lesion. Neck: Supple. No lymphadenopathy, thyromegaly noted. Lungs: Bilaterally clear but diminished breath sounds with no crepitation or wheeze. Unlabored. Cardiovascular: Heart is regular rhythm, S1S2. No extra-audible heart tones. Abdomen: Abdomen is soft, nontender. Bowel sounds positive all four quadrants. Extremities: No clubbing, cyanosis or edema. Peripheral pulses palpable. No calf tenderness. Adequate peripheral circulation. Neurological: The patient is awake, oriented to time, people and place. Following simple commands, moving all extremities. Weight Current Weight Dosing Weight: 106 kg (04/18/22) Current Weight: 106.6 kg (04/19/22) Dosing Weight: 105.4 kg (04/18/22) Medications Medications (24) Active Scheduled: (12) albuterol 0.083% Soln UD (2.5mg/3 mL) 2.5 mg 3 mL, Inhalation, QIDRT atorvastatin 10 mg tablet 10 mg 1 tab(s), Oral, qPM budesonide 0.5 mg/2 mL Susp UD 0.5 mg 2 mL, Inhalation, BIDRT docusate sodium 100 mg Capsule 100 mg 1 cap(s), Oral, BID fluconazole 100 mg tablet 150 mg 1.5 tab(s), Oral, qDay furosemide 40 mg tablet 40 mg 1 tab(s), Oral, qDay gabapentin 300 mg Capsule 300 mg 1 cap(s), Oral, TID insulin glargine 100 units/ml solution 40 unit(s) 0.4 mL, Subcutaneous, qHS insulin lispro 100 units/mL Soln (3 mL) Give 0-5 units/dose, Subcutaneous, TIDAC oxybutynin 5 mg ER tablet 10 mg 2 tab(s), Oral, qDay rOPINIRole 1 mg tablet 9 mg 9 tab(s), Oral, qHS sertraline 100 mg tablet 100 mg 1 tab(s), Oral, BID Continuous: (1) Lactated Ringers 1,000 mL 1,000 mL, Intravenous, 75 mL/hr PRN: (11) acetaminophen 325 mg Tablet 650 mg 2 tab(s), Oral, q4h acetaminophen 325 mg Tablet 650 mg 2 tab(s), Oral, q4h albuterol - ipratropium 2.5 mg-0.5 mg/3 mL Inhal Sue UD 3 mL, Inhalation, q4hRT benzonatate 100 mg Capsule 100 mg 1 cap(s), Oral, TID calcium carbonate 500 mg Chewable 500 mg 1 tab(s), Chewed, TID guaifenesin 100 mg/5 mL 120 mL liquid 200 mg 10 mL, Oral, q4h magnesium sulfate PMX 1 gram(s) 25 mL, IV Piggyback, AsDirected meclizine 25 mg Tablet 25 mg 1 tab(s), Oral, BID melatonin 3 mg tablet 6 mg 2 tab(s), Oral, qHS ondansetron 2 mg/ 1 mL 2 mL INJ 4 mg 2 mL, IV Push, q4h tramadol 50 mg Tablet 50 mg 1 tab(s), Oral, q6h Lab Results 04/19 09:01 Glucose Level: 268 H Sodium Level: 143 Potassium Level: 3.0 L BUN: 11 Creatinine Lvl (s): 0.87 04/19 05:33 WBC: 8.2 Hgb: 10.6 L Hct: 31.1 L Platelet: 344 Neutrophil %: 65.2 Protime: 44.8 H PT International Ratio: 3.9 H 04/18 19:10 Protime: 47.7 H PT International Ratio: 4.1 H 04/18 14:19 WBC: 12.6 H Hgb: 12.5 Hct: 36.1 L Platelet: 430 H Neutrophil %: 81.5 H Glucose Level: 264 H Sodium Level: 140 Potassium Level: 2.4 C BUN: 17 Creatinine Lvl (s): 1.18 H EKG Electrocardiogram [AOH] (EKG [AOH]) - InProcess -- 04/19/22 9:52:00 EDT, 04/19/22 9:52:00 EDT Assessment/Plan 1. Hypokalemia 1. Hypokalemia Acute, new onset, likely secondary to frequent stools s/p bariatric surgery *Patient administered 50 meq Effer-K PO and 40 meq potassium chloride IV in the ED. *Administered an additional 40 meq potassium chloride IV. *Hold Lasix for tonight. *Repeat potassium 3.0 this morning. *Replace with 40 meq potassium chloride PO x 1 today. *Repeat BMP in am. 2. Hypomagnesemia Acute, new onset *Patient administered 3 grams magnesium sulfate IV in the ED. *Magnesium 1.6 this morning. *Replace with additional 4 grams mag sulfate IV today. *Repeat magnesium level in the am. 3. Chest pain Acute on chronic, ongoing for last few months *Trend serial troponin x 3 - all negative. *HEART Score 6. *Patient had a stress test a few years ago that was inconclusive followed by a cath that was negative. *Will order a stress test for today or tomorrow. *Repeat EKG for recurrent chest pain. 4. Palpitations Acute, unknown etiology, possibly related to electrolyte disturbances. *Monitor on telemetry. *Improved today. 5. Diabetes mellitus type 2 Chronic *Blood sugar checks before meals and at bedtime. *Cover with low-dose sliding scale insulin. *Continue diabetic diet as tolerated. *Continue current home medication. Ordered: 6. Hypertension Chronic, controlled *Continue current home medications. *Continue to hold Lasix for tonight. 7. Irritable bowel syndrome Chronic, uncontrolled *Takes Pepto-Bismol at home for this. *Monitor. *May need to follow-up with PCP for this as not controlled. 8. Factor 5 Leiden mutation, heterozygous Chronic *Continue Coumadin at current dose. *INR 3.9 today. *Hold Coumadin until INR < 3.0. *Repeat INR in am. 9. Sleep apnea Chronic *Continue CPAP at bedtime. 10. Shortness of breath Chronic, possibly secondary to asthma *Continue duoneb aerosols as needed for shortness of breath. 11. Restless leg syndrome Chronic *Continue current home medication. 12. Asthma Chronic *Continue duoneb aerosols as needed for shortness of breath. Patient would like to remain a FULL CODE. DVT prophylaxis with Coumadin. This case was discussed with collaborating physician, Dr. Bri Leigh. Time Spent 35 minutes. Digitally Signed by ANNE BHAKTA on 04/19/2022 12:47 PM [facility]07-26-2022 Respiratory therapy Hospital Progress note Pt. took her own Advair medication. Digitally Signed by BEL ESTEBAN on 04/18/2022 10:25 PM [facility]07-26-2022 Note Date of Service 04/18/2022 Chief Complaint pt states she was called by doctor office to go to the ER for abnormal lab values, low potassium History of Present Illness Patient is a 66-year-old female, who follows with Dr. Elissa Dial with a past medical history significant for type 2 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, hypertension, irritable bowel syndrome and restlessleg syndrome, presents to [facility] emergency department with the chief complaint of abnormal labs. Patient states that she had bariatric surgery on 02/15/2022 at [facility]. She adds that she felt really good for about a month afterwards. After that, she developed more frequent bowel movements and nausea. She presented to the ED about a week ago and was discharged on Cipro and Flagyl. She states that it did not help and she has had ongoing frequent bowel movementsand nausea. Her bariatric surgeon ordered labs today and she was notified that her potassium was very low and to come to the ED for evaluation. Patient denies any fever, chills, cough, constipation or dysuria. She does endorse chronic shortness of breath, chest pain, palpitations, dizziness and lower quadrant abdominal pain. In the emergency department, CBC significant for WBC 12.6, hematocrit 36.1, platelet 430. BMP significant for glucose 264, potassium 2.4, creatinine 1.18, and magnesium 1.4. No imaging done at this visit but CT of the abdomen/pelvis done on 04/09 showed inflammation adjacent to pancreas and postsurgical stomach indicating possible acute pancreatitis, correlate with lipase and amylase, mild haziness along course of descending colon indicating possible mild inflammation or inflammatory colitis. The ED attempted to collect stool but states that the stool that patient passed in the ED was formed and not appropriate for C. Diff testing. Patient was administered 1 liter of NS, 50 meq Effer-K PO, 40 meq potassium chloride IV and 2 grams magnesium sulfate IV in the ED. She will be transferred to telemetry for observation. We will administer an additional 40 meq potassium chloride IV and an additional 2 grams mag sulfate IV. We will trend serial troponin every 6 hours x 2. Repeat EKG in the am.Repeat CBC and BMP in the am. Review of Systems Review of Systems: Reviewed in detail, including general health, HEENT, cardiovascular, respiratory, gastrointestinal, genitourinary, endocrine, musculoskeletal, neurologic, vascular, skin, and psychiatric. All are negative except for those listed in the History of Present Illness Physical Exam Vitals and Measurements T: 37.3 C (Oral) HR: 88 RR: 16 BP: 136/79 SpO2: 97% WT: 105.4 kg Weight Dosing Weight: 105.4 kg (04/18/22) Physical Exam General: No acute distress. Patient is alert and appropriate. Skin: No rash. Skin is warm, dry and intact. HEENT: Head is normocephalic and atraumatic. No lesions. Pupils equal in size. Extraocular movements within normal limits. Nose: No septal deviation. Mouth: Oropharynx mucosa is without lesion. Neck: Supple. No lymphadenopathy, thyromegaly noted. Lungs: Bilaterally clear/diminished breath sounds with no crepitation or wheeze. Unlabored. Cardiovascular: Heart is regular rhythm, S1S2. No extra-audible heart tones. Abdomen: Abdomen is soft. Slight tenderness to palpation in bilateral lower quadrants. Bowel soundspositive all four quadrants. Extremities: No clubbing, cyanosis or edema. Peripheral pulses palpable. No calf tenderness. Adequate peripheral circulation. Neurological: The patient is awake, oriented to time, people and place. Following simple commands, moving all extremities. Lab Results 04/18 14:19 WBC: 12.6 H Hgb: 12.5 Hct: 36.1 L Platelet: 430 H Neutrophil %: 81.5 H Glucose Level: 264 H Sodium Level: 140 Potassium Level: 2.4 C BUN: 17 Creatinine Lvl (s): 1.18 H Assessment/Plan 1. Hypokalemia Acute, new onset, likely secondary to frequent stools s/p bariatric surgery *Patient administered 50 meq Effer-K PO and 40 meq potassium chloride IV in the ED. *Administer an additional 40 meq potassium chloride IV. *Hold Lasix for tonight. *Repeat BMP in the am. 2. Hypomagnesemia Acute, new onset *Patient administered 3 grams magnesium sulfate IV in the ED. *Administer an additional 1 grams magnesium sulfate. *Repeat magnesium level in the am. 3. Chest pain Acute on chronic, ongoing for last few months *Trend serial troponin x 2. *Troponin in ED negative. *Repeat EKG for recurrent chest pain. 4. Palpitations Acute, unknown etiology, possibly related to electrolyte disturbances. *Monitor on telemetry. 5. Diabetes mellitus type 2 Chronic *Blood sugar checks before meals and at bedtime. *Cover with low-dose sliding scale insulin. *Start diabetic diet as tolerated. *Continue current home medication. 6. Hypertension Chronic, controlled *Continue current home medications. *Hold Lasix for tonight. 7. Irritable bowel syndrome Chronic, uncontrolled *Not currently on medication for this. *Monitor. 8. Factor 5 Leiden mutation, heterozygous Chronic *Continue Coumadin at current dose. *Check INR in am. 9. Sleep apnea Chronic *Continue CPAP at bedtime. 10. Shortness of breath Chronic, possibly secondary to asthma *Start duoneb aerosols as needed for shortness of breath. 11. Restless leg syndrome Chronic *Continue current home medications. 12. Asthma Chronic *Start duoneb aerosols as needed for shortness of breath. Patient would like to remain a FULL CODE. DVT prophylaxis with Coumadin. This case discussed with collaborating physician, Dr. Bri Leigh. Problem List/Past Medical History Ongoing Acute diastolic heart failure Asthma Asthma exacerbation Chronic constipation Diabetes mellitus type 2 Endometrial hyperplasia Factor 5 Leiden mutation, heterozygous Hyperlipidemia Hypertension Hypomagnesemia Pain in the abdomen Pneumonia Shortness of breath Sleep apnea UTI (urinary tract infection) Historical DVT Partial small bowel obstruction PE - Pulmonary embolism Procedure/Surgical History Sling procedure of bladder neck: 2014 Cholecystectomy: 1980 Appendectomy: 1967 Vaginal hysterectomy Total hip replacement bilateral Medications Home Medications (23) Active Advair Diskus 250 mcg-50 mcg inhalation powder 1 puff(s), Inhalation, BID atorvastatin 20 mg oral tablet 10 mg = 0.5 tab(s), Oral, qPM cephalexin 500 mg oral capsule ciprofloxacin 500 mg oral tablet 500 mg = 1 tab(s), PO, q12hr Colace 100 mg oral capsule 100 mg = 1 cap(s), Oral, BID fenofibrate 160 mg oral tablet 160 mg = 1 tab(s), Oral, qPM fluconazole 150 mg oral tablet 150 mg = 1 tab(s), Oral, qDay gabapentin 300 mg oral capsule 300 mg = 1 cap(s), Oral, TID glipiZIDE 5 mg oral tablet, extended release 5 mg = 1 tab(s), Oral, qPM K-Tab 8 mEq oral tablet, extended release 8 mEq = 1 tab(s), Oral, qDay lansoprazole 30 mg oral delayed release capsule 30 mg = 1 cap(s), Oral, qAM Lasix 40 mg oral tablet 40 mg = 1 tab(s), Oral, qDay Levemir FlexTouch 100 units/mL 3 mL Pen 40 unit(s), Subcutaneous, qHS losartan 50 mg oral tablet 50 mg = 1 tab(s), Oral, qAM meclizine 25 mg oral tablet 25 mg = 1 tab(s), PRN, Oral, BID metFORMIN 1000 mg oral tablet 1,000 mg = 1 tab(s), Oral, BIDM metroNIDAZOLE 500 mg oral tablet 500 mg = 1 tab(s), Oral, TID rOPINIRole 3 mg oral tablet 9 mg = 3 tab(s), Oral, qHS Toviaz 8 mg oral tablet, extended release 8 mg = 1 tab(s), Oral, qAM traMADol 50 mg oral tablet 50 mg = 1 tab(s), PRN, Oral, q6h Ventolin HFA MDI (90 mcg/inh) inhalation aerosol 1 puff(s), PRN, Inhalation, QID warfarin 5 mg oral tablet 5 mg = 1 tab(s), Oral, qDay Zoloft 100 mg oral tablet 100 mg = 1 tab(s), Oral, BID Allergies Darvocet Tape Xarelto Zestril (Hives) clindamycin metoprolol (Hives) Social History Smoking Status - 11/15/2016 Never smoker Alcohol Use: Never., 10/30/2019 Home/Environment Domestic Concerns: None. Living situation: Home/Independent. Primary Client Retention Specialist: self. Lives In: Single level home, 1st floor bedroom, 1st floor bathroom, 1st floor laundry. Current Home Treatments BiPAP, Blood glucose monitoring, Nebulizer treatments. Professional Skilled Services or Special Community Resources None. Marital Status: ., 11/14/2019 Nutrition/Health Type of diet: Regular. Appetite Good. Eating Difficulties None., 10/30/2019 Substance Abuse Use: Never., 10/30/2019 Tobacco Nicotine Use: Never (less than 100 in lifetime)., 10/30/2019 Family History Alzheimer disease: Mother. Diabetes mellitus: Father, Sister and Sister. Protein S deficiency 22-Mar-2016 02:37:05<$>: Sister and Sister. Immunizations No qualifying data available. Code Status No qualifying data available. Digitally Signed by ANNE BHAKTA on 04/18/2022 04:42 PM [facility]07-26-2022 Evaluation + Plan noteExtracted from: Title:History and Physical Author:ANNE BHAKTA Date:04/18/22 1. Hypokalemia Acute, new onset, likely secondary to frequent stools s/p bariatric surgery *Patient administered 50 meq Effer-K PO and 40 meq potassium chloride IV in the ED. *Administer an additional 40 meq potassium chloride IV. *Hold Lasix for tonight. *Repeat BMP in the am. 2. Hypomagnesemia Acute, new onset *Patient administered 3 grams magnesium sulfate IV in the ED. *Administer an additional 1 grams magnesium sulfate. *Repeat magnesium level in the am. 3. Chest pain Acute on chronic, ongoing for last few months *Trend serial troponin x 2. *Troponin in ED negative. *Repeat EKG for recurrent chest pain. 4. Palpitations Acute, unknown etiology, possibly related to electrolyte disturbances. *Monitor on telemetry. 5. Diabetes mellitus type 2 Chronic *Blood sugar checks before meals and at bedtime. *Cover with low-dose sliding scale insulin. *Start diabetic diet as tolerated. *Continue current home medication. 6. Hypertension Chronic, controlled *Continue current home medications. *Hold Lasix for tonight. 7. Irritable bowel syndrome Chronic, uncontrolled *Not currently on medication for this. *Monitor. 8. Factor 5 Leiden mutation, heterozygous Chronic *Continue Coumadin at current dose. *Check INR in am. 9. Sleep apnea Chronic *Continue CPAP at bedtime. 10. Shortness of breath Chronic, possibly secondary to asthma *Start duoneb aerosols as needed for shortness of breath. 11. Restless leg syndrome Chronic *Continue current home medications. 12. Asthma Chronic *Start duoneb aerosols as needed for shortness of breath. Patient would like to remain a FULL CODE. DVT prophylaxis with Coumadin. This case discussed with collaborating physician, Dr. Bri Leigh. [facility] 07-17-2022 Hospital Discharge instructions Patient Education 04/09/2022 07:08:07 Abdominal Pain Abdominal Pain Abdominal pain is pain in the stomach or belly area. Everyone has this pain from time to time. In many cases it goes away on its own. But abdominal pain can sometimes be due to a serious problem, such as appendicitis. So it s important to know when to get help. Causes of abdominal pain There are many possible causes of abdominal pain. Common causes in adults include: Constipation, diarrhea, or gas Stomach acid flowing back up into the esophagus (acid reflux or heartburn) Severe acid reflux, called GERD (gastroesophageal reflux disease) A sore in the lining of the stomach or small intestine (peptic ulcer) Inflammation of the gallbladder, liver, or pancreas Gallstones or kidney stones Appendicitis Intestinal blockage An internal organ pushing through a muscle or other tissue (hernia) Urinary tract infections In women, menstrual cramps, fibroids, ovarian cysts, pelvic inflammatory disease, or endometriosis Inflammation or infection of the intestines, including Crohn's disease and ulcerative colitis Irritable bowel syndrome Diagnosing the cause of abdominal pain Your healthcare provider will give you a physical exam help find the cause of your pain. If needed,you will have tests. Belly pain has many possible causes. So it can be hard to find the reason for your pain. Giving details about your pain can help. Tell your provider where and when you feel the pain, and what makes it better or worse. Also let your provider know if you have other symptoms such as: Fever Tiredness Upset stomach (nausea) Vomiting Changes in bathroom habits Blood in the stool or black, tarry stool Weight loss that you can't explain (involuntary weight loss?) Also report any family history of stomach or intestinal problems, or cancers. Tell your provider about all your alcohol use and drug use. Tell your provider about all medicines you use, including herbs, vitamins, and supplements. Treating abdominal pain Some causes of pain need emergency medical treatment right away. These include appendicitis or a bowel blockage. Other problems can be treated with rest, fluids, or medicines. Your healthcare provider can give you specific instructions for treatment or self-care based on what is causing your pain. If you have vomiting or diarrhea, sip water or other clear fluids. When you are ready to eat solid foods again, start with small amounts of [id number], low- fat foods. These include apple sauce, toast, or crackers. When to get medical care Call 911 or go to the hospital right away if you: Can t pass stool and are vomiting Are vomiting blood or have bloody diarrhea or black, tarry diarrhea Have chest, neck, or shoulder pain Feel like you might pass out Have pain in your shoulder blades with nausea Have sudden, severe belly pain Have new, severe pain unlike any you have felt before Have a belly that is rigid, hard, and hurts to touch Call your healthcare provider if you have: Pain for more than 5 days Bloating for more than 2 days Diarrhea for more than 5 days A fever of 100.4 F (38 C) or higher, or as directed by your healthcare provider Pain that gets worse Weight loss for no reason Continued lack of appetite Blood in your stool How to prevent abdominal pain Here are some tips to help prevent abdominal pain: Eat smaller amounts of food at each meal. Don't eat greasy, fried, or other high-fat foods. Don't eat foods that give you gas. Exercise regularly. Drink plenty of fluids. To help prevent GERD symptoms: Quit smoking. Reduce alcohol and foods that increase stomach acid. Don't use aspirin or oevr-sqd-gmffmah pain and fever medicines, if possible. This includes nonsteroidal anti-inflammatory drugs (NSAIDs). Lose excess weight. Finish eating at least 2 hours before you go to bed or lie down. Raise the head of your bed. [id number] [employer]. [address] [place] [id number]. All rights reserved. This information is not intended as a substitute for professional medical care. Always follow yourhealthcare professional's instructions. Follow Up Care 04/09/2022 03:03:34 With:ELISSA DIAL DO Address: [facility] [place] [place] [id number]- When:2-4 days [facility] 07-17-2022 Emergency department Discharge summary Discharge Instructions Thank you for allowing [facility] to assist you with your healthcare needs. The following is importantdischarge information regarding your hospital visit. Diagnosis from Today's Visit Abdominal pain What to Do Next Instructions from Your Care Team No qualifying data available. Post Acute Orders No qualifying data available. You Need to Schedule the Following Appointments Follow Up with ELISSA DIAL DO When Within 2-4 days Where: [facility] [address] [place] [id number]- Allergies Darvocet Tape Xarelto Zestril (Hives) clindamycin metoprolol (Hives) Medications Please ask your primary doctor or pharmacist before taking any other medication not listed, including over the counter drugs, herbal medications, vitamins and or supplements as they may interact withyour home medications. What How Much When Why Instructions Last Dose New ciprofloxacin (ciprofloxacin 500 mg oral tablet) 1 tab(s) by mouth Every 12 hours Duration: 10 Days Printed Prescription New metroNIDAZOLE (metroNIDAZOLE 500 mg oral tablet) 1 tab(s) by mouth Three (3) times a day Duration: 10 Days Printed Prescription New ondansetron (ondansetron 4 mg oral tablet, disintegrating) 1 tab(s) by mouth Every 8 hours as needed for as needed for nausea/vomiting Duration: 3 Days Printed Prescription Unchanged albuterol (Ventolin HFA MDI (90 mcg/ inh) inhalation aerosol) 1 puff(s) by inhalation Four (4) times a day as needed for as needed for wheezing Unchanged atorvastatin (atorvastatin 20 mg oral tablet) 0.5 tab(s) by mouth Once a day (in the evening) Unchanged cephalexin (cephalexin 500 mg oral capsule) take 1 capsule by mouth four times a day until finished Unchanged docusate (Colace 100 mg oral capsule) 1 cap by mouth Two (2) times a day Unchanged fenofibrate (fenofibrate 160 mg oral tablet) 1 tab(s) by mouth Once a day (in the evening) Unchanged fesoterodine (Toviaz 8 mg oral tablet, extended release) 1 tab(s) by mouth Once a day (in the morning) Unchanged fluconazole (fluconazole 150 mg oral tablet) 1 tab(s) by mouth Once a day Duration: 3 Doses Unchanged fluticasone-salmeterol (Advair Diskus 250 mcg-50 mcg inhalation powder) 1 puff(s) by inhalation Two (2) times a day Unchanged furosemide (Lasix 40 mg oral tablet) 1 tab(s) by mouth Once a day Unchanged gabapentin (gabapentin 300 mg oral capsule) 1 cap by mouth Three (3) times a day Unchanged glipiZIDE (glipiZIDE 5 mg oral tablet, extended release) 1 tab(s) by mouth Once a day (in the evening) take 1 tablet by mouth daily Unchanged insulin detemir (Levemir) (Levemir FlexTouch 100 units/ mL 3 mL Pen) 40 unit(s) Subcutaneous Daily at bedtime Diabetes mellitus type 2 insulin and supplies with pen needles. if subsituted for vial, then insulin syringes. 30 day supply. Unchanged lansoprazole (lansoprazole 30 mg oral delayed release capsule) 1 cap by mouth Once a day (in the morning) Unchanged losartan (losartan 50 mg oral tablet) 1 tab(s) by mouth Once a day (in the morning) Unchanged meclizine (meclizine 25 mg oral tablet) 1 tab(s) by mouth Two (2) times a day as needed for as needed for dizziness Unchanged metFORMIN (metFORMIN 1000 mg oral tablet) 1 tab(s) by mouth Twice daily with meals Unchanged potassium chloride (K-Tab 8 mEq oral tablet, extended release) 1 tab(s) by mouth Once a day take with food. Unchanged rOPINIRole (rOPINIRole 3 mg oral tablet) 3 tab(s) by mouth Daily at bedtime Unchanged sertraline (Zoloft 100 mg oral tablet) 1 tab(s) by mouth Two (2) times a day Unchanged traMADol (traMADol 50 mg oral tablet) 1 tab(s) by mouth Every 6 hours as needed for for pain Unchanged warfarin (warfarin 5 mg oral tablet) 1 tab(s) by mouth Once a day Please take this list to your next doctor s visit. Bring all medications you take, including over the counter medications, herbals and other supplements with you to your doctor s visit. Patients and families are reminded to discard old lists and to update any records with all medication providers or retail pharmacies. Medication Leaflets ondansetron (oral) (on ROBERT se chelle) Zuleika To Zuplenz What is the most important information I should know about ondansetron? You should not use ondansetron if you are also using apomorphine (Apokyn). What is ondansetron? Ondansetron blocks the actions of chemicals in the body that can trigger nausea and vomiting. Ondansetron is used to prevent nausea and vomiting that may be caused by surgery, cancer chemotherapy, or radiation treatment. Ondansetron may be used for purposes not listed in this medication guide. What should I discuss with my health care provider before taking ondansetron? You should not use ondansetron if: you are also using apomorphine (Apokyn); or you are allergic to ondansetron or similar medicines (dolasetron, granisetron, palonosetron). To make sure ondansetron is safe for you, tell your doctor if you have: liver disease; an electrolyte imbalance (such as low levels of potassium or magnesium in your blood); congestive heart failure, slow heartbeats; a personal or family history of long QT syndrome; or a blockage in your digestive tract (stomach or intestines). Ondansetron is not expected to harm an unborn baby. Tell your doctor if you are . It is not known whether ondansetron passes into breast milk or if it could harm a nursing baby. Tell your doctor if you are breast-feeding a baby. Ondansetron is not approved for use by anyone younger than 4 years old. Ondansetron orally disintegrating tablets may contain phenylalanine. Tell your doctor if you have phenylketonuria (PKU). How should I take ondansetron? Follow all directions on your prescription label. Do not take this medicine in larger or smaller amounts or for longer than recommended. Ondansetron can be taken with or without food. The first dose of ondansetron is usually taken before the start of your surgery, chemotherapy, or radiation treatment. Follow your doctor's dosing instructions very carefully. Take the ondansetron regular tablet with a full glass of water. To take the orally disintegrating tablet (Zofran ODT): Keep the tablet in its blister pack until you are ready to take it. Open the package and peel back the foil. Do not push a tablet through the foil or you may damage the tablet. Use dry hands to remove the tablet and place it in your mouth. Do not swallow the tablet whole. Allow it to dissolve in your mouth without chewing. Swallow several times as the tablet dissolves. To use ondansetron oral soluble film (strip) (Zuplenz): Keep the strip in the foil pouch until you are ready to use the medicine. Using dry hands, remove the strip and place it on your tongue. It will begin to dissolve right away. Do not swallow the strip whole. Allow it to dissolve in your mouth without chewing. Swallow several times after the strip dissolves. If desired, you may drink liquid to help swallow the dissolved strip. Wash your hands after using Zuplenz. Measure liquid medicine with the dosing syringe provided, or with a special dose-measuring spoon ormedicine cup. If you do not have a dose-measuring device, ask your pharmacist for one. Store at room temperature away from moisture, heat, and light. Store liquid medicine in an upright position. What happens if I miss a dose? Take the missed dose as soon as you remember. Skip the missed dose if it is almost time for your next scheduled dose. Do not take extra medicine to make up the missed dose. What happens if I overdose? Seek emergency medical attention or call the Poison Help line at . Overdose symptoms may include sudden loss of vision, severe constipation, feeling light-headed, or fainting. What should I avoid while taking ondansetron? Ondansetron may impair your thinking or reactions. Be careful if you drive or do anything that requires you to be alert. What are the possible side effects of ondansetron? Get emergency medical help if you have signs of an allergic reaction: rash, hives; fever, chills, difficult breathing; swelling of your face, lips, tongue, or throat. Call your doctor at once if you have: severe constipation, stomach pain, or bloating; headache with chest pain and severe dizziness, fainting, fast or pounding heartbeats; fast or pounding heartbeats; jaundice (yellowing of the skin or eyes); blurred vision or temporary vision loss (lasting from only a few minutes to several hours); high levels of serotonin in the body--agitation, hallucinations, fever, fast heart rate, overactivereflexes, nausea, vomiting, diarrhea, loss of coordination, fainting. Common side effects may include: diarrhea or constipation; headache; drowsiness; or tired feeling. This is not a complete list of side effects and others may occur. Call your doctor for medical advice about side effects. You may report side effects to FDA at 0-719-YWE-1042. What other drugs will affect ondansetron? Ondansetron can cause a serious heart problem, especially if you use certain medicines at the same time, including antibiotics, antidepressants, heart rhythm medicine, antipsychotic medicines, and medicines to treat cancer, malaria, HIV or AIDS. Tell your doctor about all medicines you use, and those you start or stop using during your treatment with ondansetron. Taking ondansetron while you are using certain other medicines can cause high levels of serotonin to build up in your body, a condition called 'serotonin syndrome,' which can be fatal. Tell your doctor if you also use: medicine to treat depression; medicine to treat a psychiatric disorder; a narcotic (opioid) medication; or medicine to prevent nausea and vomiting. This list is not complete and many other drugs can interact with ondansetron. This includes prescription and [id number]-[id number] medicines, vitamins, and herbal products. Give a list of all your medicines to any healthcare provider who treats you. Where can I get more information? Your pharmacist can provide more information about ondansetron. Remember, keep this and all other medicines out of the reach of children, never share your medicines with others, and use this medication only for the indication prescribed. Every effort has been made to ensure that the information provided by [employer]') is accurate, up-to-date, and complete, but no guarantee is made to that effect. Drug information contained herein may be time sensitive. [employer] information has been compiled for use by healthcare practitioners and consumers in the [place] and therefore [employer] does not warrant that uses outside of the [place] are appropriate, unless specifically indicated otherwise. [employer] drug information does not endorse drugs, diagnose patients or recommend therapy. [employer] drug information isan informational resource designed to assist licensed healthcare practitioners in caring for their p atients and/or to serve consumers viewing this service as a supplement to, and not a substitute for, the expertise, skill, knowledge and judgment of healthcare practitioners. The absence of a warningfor a given drug or drug combination in no way should be construed to indicate that the drug or drug combination is safe, effective or appropriate for any given patient. [employer] does not assume any responsibility for any aspect of healthcare administered with the aid of information [employer] provides. The information contained herein is not intended to cover all possible uses, directions, precautions, warnings, drug interactions, allergic reactions, or adverse effects. If you have questions about the drugs you are taking, check with your doctor, nurse or pharmacist. Copyright 6367-5853 [employer]. Version: 13.01. Revision Date: 07/14/2016. fluconazole (oral/injection) (floo KOE na zole) Diflucan What is the most important information I should know about fluconazole? Tell your doctor about all your current medicines and any you start or stop using. Many drugs can interact, and some drugs should not be used together. What is fluconazole? Fluconazole is an antifungal medicine that is used to treat infections caused by fungus, which can invade any part of the body including the mouth, throat, esophagus, lungs, bladder, genital area, and the blood. Fluconazole is also used to prevent fungal infection in people who have a weak immune system causedby cancer treatment, bone marrow transplant, or diseases such as AIDS. Fluconazole is also used to treat a certain type of meningitis in people with HIV or AIDS. Fluconazole may also be used for purposes not listed in this medication guide. What should I discuss with my healthcare provider before taking fluconazole? You should not use fluconazole if you are allergic to it. Many drugs can interact and cause dangerous effects. Some drugs should not be used together with fluconazole. Your doctor may change your treatment plan if you also use: cisapride, fentanyl, methadone, pimozide, tofacitinib, tolvaptan, or a vitamin A supplement; an antibiotic, antifungal, or antiviral medicine; a blood thinner; cancer medicine; cholesterol medication; oral diabetes medicine; heart or blood pressure medication; medicine for malaria or tuberculosis; medicine to prevent organ transplant rejection; medicine to treat depression or mental illness; an NSAID (nonsteroidal anti-inflammatory drug); seizure medicine; or steroid medicine. Tell your doctor if you have ever had: liver disease; heart problems; or if you are allergic to other antifungal medicine (such as ketoconazole, itraconazole, miconazole, posaconazole, voriconazole, and others). The liquid form of fluconazole contains sucrose. Talk to your doctor before using this form of fluconazole if you have a problem digesting sugars or milk. Fluconazole may harm an unborn baby. Use effective control to prevent while taking this medicine and for at least 1 week after your last dose. It may not be safe to breastfeed while using this medicine. Ask your doctor about any risk. How should I take fluconazole? Follow all directions on your prescription label and read all medication guides or instruction sheets. Use the medicine exactly as directed. Your dose will depend on the infection you are treating. Vaginal infections are often treated with only one pill. For other infections, your first dose may be a double dose. Carefully follow your doctor's instructions. Fluconazole oral is taken by mouth. Fluconazole injection is given as an infusion into a vein. You may take fluconazole oral with or without food. Shake the oral suspension (liquid) before you measure a dose. Use the dosing syringe provided, or use a medicine dose-measuring device (not a kitchen spoon). Fluconazole injection is given as an infusion into a vein. A healthcare provider will give your first dose and may teach you how to properly use the medication by yourself. Prepare an injection only when you are ready to give it. Do not use if the medicine looks cloudy, has changed colors, or has particles in it. Call your pharmacist for new medicine. Use fluconazole for the full prescribed length of time, even if your symptoms quickly improve. Skipping doses can increase your risk of infection that is resistant to medication. Fluconazole will nottreat a viral infection such as the flu or a common cold. Call your doctor if your symptoms do not improve, or if they get worse. Store fluconazole at room temperature away from moisture and heat. Do not freeze. You may store the oral suspension in a refrigerator, but do not allow it to freeze. Throw away any leftover liquid that is more than 2 weeks old. What happens if I miss a dose? Use the medicine as soon as you can, but skip the missed dose if it is almost time for your next dose. Do not use two doses at one time. What happens if I overdose? Seek emergency medical attention or call the Poison Help line at . Overdose symptoms may include confusion or unusual thoughts or behavior. What should I avoid while using fluconazole? Avoid driving or hazardous activity until you know how this medicine will affect you. Your reactions could be impaired. What are the possible side effects of fluconazole? Get emergency medical help if you have signs of an allergic reaction (hives, difficult breathing, swelling in your face or throat) or a severe skin reaction (fever, sore throat, burning eyes, skin pain, red or purple skin rash with blistering and peeling). Call your doctor at once if you have: fast or pounding heartbeats, fluttering in your chest, shortness of breath, and sudden dizziness (like you might pass out); seizure (convulsions); skin rash or skin lesions; or liver problems--loss of appetite, stomach pain (upper right side), dark urine, andrea-colored stools,jaundice (yellowing of the skin or eyes). Common side effects may include: nausea, stomach pain, diarrhea, upset stomach; headache; dizziness; or changes in your sense of taste. This is not a complete list of side effects and others may occur. Call your doctor for medical advice about side effects. You may report side effects to FDA at 9-872-KSP-5086. What other drugs will affect fluconazole? Sometimes it is not safe to use certain medications at the same time. Some drugs can affect your blood levels of other drugs you take, which may increase side effects or make the medications less effective. Fluconazole can cause a serious heart problem. Your risk may be higher if you also use certain other medicines for infections, asthma, heart problems, high blood pressure, depression, mental illness,cancer, malaria, or HIV. Many drugs can affect fluconazole, and some drugs should not be used at the same time. Tell your doctor about all your current medicines and any medicine you start or stop using. This includes prescription and tujl-clk-hqihyae medicines, vitamins, and herbal products. Not all possible interactions are listed here. Where can I get more information? Your pharmacist can provide more information about fluconazole. Remember, keep this and all other medicines out of the reach of children, never share your medicines with others, and use this medication only for the indication prescribed. Every effort has been made to ensure that the information provided by [employer]') is accurate, up-to-date, and complete, but no guarantee is made to that effect. Drug information contained herein may be time sensitive. [employer] information has been compiled for use by healthcare practitioners and consumers in the [place] and therefore [employer] does not warrant that uses outside of the [place] are appropriate, unless specifically indicated otherwise. [employer] drug information does not endorse drugs, diagnose patients or recommend therapy. [employer] drug information isan informational resource designed to assist licensed healthcare practitioners in caring for their p atients and/or to serve consumers viewing this service as a supplement to, and not a substitute for, the expertise, skill, knowledge and judgment of healthcare practitioners. The absence of a warningfor a given drug or drug combination in no way should be construed to indicate that the drug or drug combination is safe, effective or appropriate for any given patient. [employer] does not assume any responsibility for any aspect of healthcare administered with the aid of information [employer] provides. The information contained herein is not intended to cover all possible uses, directions, precautions, warnings, drug interactions, allergic reactions, or adverse effects. If you have questions about the drugs you are taking, check with your doctor, nurse or pharmacist. Copyright 3740-4149 [employer]. Version: .. Revision Date: 11/05/2020. ciprofloxacin (oral) (SIP selma FLOX a sin) Cipro, Proquin XR What is the most important information I should know about ciprofloxacin? Ciprofloxacin can cause serious side effects, including tendon problems, nerve damage, serious moodor behavior changes, or low blood sugar. Stop using this medicine and call your doctor at once if you have: headache, hunger, irritability, numbness, tingling, burning pain, confusion, agitation, paranoia, problems with memory or concentration, thoughts of suicide, or sudden pain or movement problems in any of your joints. In rare cases, ciprofloxacin may cause damage to your aorta, which could lead to dangerous bleedingor . Get emergency medical help if you have severe and constant pain in your chest, stomach, or back. What is ciprofloxacin? Ciprofloxacin is a fluoroquinolone (wxdo-c-GTPF-o-lone) antibiotic, it is used to treat different types of bacterial infections. It is also used to treat people who have been exposed to anthrax or certain types of plague. Ciprofloxacin extended-release is only approved for use in adults. Fluoroquinolone antibiotics can cause serious or disabling side effects that may not be reversible.Ciprofloxacin should be used only for infections that cannot be treated with a safer antibiotic. Ciprofloxacin may also be used for purposes not listed in this medication guide. What should I discuss with my healthcare provider before taking ciprofloxacin? You should not use ciprofloxacin if you are allergic to it, or if: you also take tizanidine; or you are allergic to other fluoroquinolones (levofloxacin, moxifloxacin, norfloxacin, ofloxacin). Ciprofloxacin may cause swelling or tearing of a tendon (the fiber that connects bones to muscles in the body), especially in the Achilles' tendon of the heel. This can happen during treatment or several months after you stop taking ciprofloxacin. Tendon problems may be more likely in children and older adults, or people who use steroid medicine or have had an organ transplant. Tell your doctor if you have ever had: arthritis or problems with your tendons, bones or joints (especially in children); diabetes, low blood sugar; nerve problems; an aneurysm or blood circulation problems; heart problems, or a heart attack; muscle weakness, myasthenia gravis; liver or kidney disease; a seizure, head injury, or brain tumor; trouble swallowing pills; long QT syndrome (in you or a family member); or low levels of potassium in your blood (hypokalemia). Do not give this medicine to a child without medical advice. It is not known whether this medicine will harm an unborn baby. Tell your doctor if you are . You should not breastfeed while taking ciprofloxacin and for 2 days after your last dose. Ask your doctor about if you take ciprofloxacin for anthrax exposure. How should I take ciprofloxacin? Follow all directions on your prescription label and read all medication guides or instruction sheets. Use the medicine exactly as directed. Take ciprofloxacin at the same time each day, with or without food. Shake the oral suspension (liquid) for 15 seconds before you measure a dose. Use the dosing syringeprovided, or use a medicine dose-measuring device (not a kitchen spoon). Do not give ciprofloxacin oral suspension through a feeding tube. Swallow the extended-release tablet whole and do not crush, chew, or break it. Drink plenty of liquids while you are taking ciprofloxacin. Use this medicine for the full prescribed length of time, even if your symptoms quickly improve. Skipping doses can increase your risk of infection that is resistant to medication. Ciprofloxacin willnot treat a viral infection such as the flu or a common cold. Do not share ciprofloxacin with another person. Store at room temperature away from moisture and heat. Do not allow the liquid medicine to freeze. Throw away any unused liquid after 14 days. What happens if I miss a dose? If you take regular tablets or oral suspension: Take the medicine as soon as you can, but skip the missed dose if your next dose is due in less than 6 hours. If you take extended-release tablets: Take the medicine as soon as you can, but skip the missed dose if your next dose is due in less than 8 hours. Do not take two doses at one time. What happens if I overdose? Seek emergency medical attention or call the Poison Help line at . What should I avoid while taking ciprofloxacin? Do not take ciprofloxacin with dairy products such as milk or yogurt, or with calcium-fortified juice. You may eat or drink these products with your meals, but do not use them alone when taking ciprofloxacin. Antibiotic medicines can cause diarrhea, which may be a sign of a new infection. If you have diarrhea that is watery or bloody, call your doctor before using anti-diarrhea medicine. Ciprofloxacin could make you sunburn more easily. Avoid sunlight or tanning beds. Wear protective clothing and use sunscreen (SPF 30 or higher) when you are outdoors. Tell your doctor if you have severe burning, redness, itching, rash, or swelling after being in the sun. Avoid driving or hazardous activity until you know how this medicine will affect you. Your reactions could be impaired. What are the possible side effects of ciprofloxacin? Get emergency medical help if you have signs of an allergic reaction (hives, difficult breathing, swelling in your face or throat) or a severe skin reaction (fever, sore throat, burning in your eyes,skin pain, red or purple skin rash that spreads and causes blistering and peeling). Ciprofloxacin can cause serious side effects, including tendon problems, damage to your nerves (which may be permanent), serious mood or behavior changes (after just one dose), or low blood sugar (which can lead to coma). Stop taking this medicine and call your doctor at once if you have: low blood sugar--headache, hunger, irritability, dizziness, nausea, fast heart rate, or feeling shaky; nerve damage symptoms--numbness, tingling, burning pain in your hands, arms, legs, or feet: serious mood or behavior changes--nervousness, confusion, agitation, paranoia, hallucinations, memory problems, trouble concentrating, thoughts of suicide; or signs of tendon rupture--sudden pain, swelling, bruising, tenderness, stiffness, movement problems,or a snapping or popping sound in any of your joints (rest the joint until you receive medical careor instructions). In rare cases, ciprofloxacin may cause damage to your aorta, the main blood artery of the body. This could lead to dangerous bleeding or . Get emergency medical help if you have severe and constant pain in your chest, stomach, or back. Also, stop using ciprofloxacin and call your doctor at once if you have: severe stomach pain, diarrhea that is watery or bloody; fast or pounding heartbeats, fluttering in your chest, shortness of breath, and sudden dizziness (like you might pass out); any skin rash, no matter how mild; muscle weakness, breathing problems; little or no urination; jaundice (yellowing of the skin or eyes); or increased pressure inside the skull--severe headaches, ringing in your ears, dizziness, nausea, vision problems, pain behind your eyes. Common side effects may include: nausea, vomiting, diarrhea, stomach pain; headache; or abnormal liver function tests. This is not a complete list of side effects and others may occur. Call your doctor for medical advice about side effects. You may report side effects to FDA at 8-022-YSZ-9648. What other drugs will affect ciprofloxacin? Some medicines can make ciprofloxacin much less effective when taken at the same time. If you take any of the following medicines, take your ciprofloxacin dose 2 hours before or 6 hours after you take the other medicine. the ulcer medicine sucralfate, or antacids that contain calcium, magnesium, or aluminum (such as Maalox, Milk of Magnesia, Mylanta, Pepcid Complete, Rolaids, Tums, and others); didanosine (Videx) powder or chewable tablets; vitamin or mineral supplements that contain calcium, iron, magnesium, or zinc. Tell your doctor about all your other medicines, especially: clozapine, cyclosporine, methotrexate, phenytoin, probenecid, ropinirole, sildenafil, or theophylline; a blood thinner (warfarin, Coumadin, Jantoven); heart medication or a diuretic or 'water pill'; oral diabetes medicine; products that contain caffeine; medicine to treat depression or mental illness; steroid medicine (such as prednisone); o NSAIDs (nonsteroidal anti-inflammatory drugs)--aspirin, ibuprofen (Advil, Motrin), naproxen (Aleve), celecoxib, diclofenac, indomethacin, meloxicam, and others; This list is not complete. Other drugs may affect ciprofloxacin, including prescription and mipc-yal-aodhrvl medicines, vitamins, and herbal products. Not all possible drug interactions are listed here. Where can I get more information? Your pharmacist can provide more information about ciprofloxacin. Remember, keep this and all other medicines out of the reach of children, never share your medicines with others, and use this medication only for the indication prescribed. Every effort has been made to ensure that the information provided by [employer]. ('[employer]') is accurate, up-to-date, and complete, but no guarantee is made to that effect. Drug information contained herein may be time sensitive. [employer] information has been compiled for use by healthcare practitioners and consumers in the [place] and therefore [employer] does not warrant that uses outside of the [place] are appropriate, unless specifically indicated otherwise. [employer] drug information does not endorse drugs, diagnose patients or recommend therapy. [employer] drug information isan informational resource designed to assist licensed healthcare practitioners in caring for their p atients and/or to serve consumers viewing this service as a supplement to, and not a substitute for, the expertise, skill, knowledge and judgment of healthcare practitioners. The absence of a warningfor a given drug or drug combination in no way should be construed to indicate that the drug or drug combination is safe, effective or appropriate for any given patient. [employer] does not assume any responsibility for any aspect of healthcare administered with the aid of information [employer] provides. The information contained herein is not intended to cover all possible uses, directions, precautions, warnings, drug interactions, allergic reactions, or adverse effects. If you have questions about the drugs you are taking, check with your doctor, nurse or pharmacist. Copyright 8271-8559 [employer]. Version: 23.01. Revision Date: 04/07/2020. Education Materials Abdominal Pain Abdominal pain is pain in the stomach or belly area. Everyone has this pain from time to time. In many cases it goes away on its own. But abdominal pain can sometimes be due to a serious problem, such as appendicitis. So it s important to know when to get help. Causes of abdominal pain There are many possible causes of abdominal pain. Common causes in adults include: Constipation, diarrhea, or gas Stomach acid flowing back up into the esophagus (acid reflux or heartburn) Severe acid reflux, called GERD (gastroesophageal reflux disease) A sore in the lining of the stomach or small intestine (peptic ulcer) Inflammation of the gallbladder, liver, or pancreas Gallstones or kidney stones Appendicitis Intestinal blockage An internal organ pushing through a muscle or other tissue (hernia) Urinary tract infections In women, menstrual cramps, fibroids, ovarian cysts, pelvic inflammatory disease, or endometriosis Inflammation or infection of the intestines, including Crohn's disease and ulcerative colitis Irritable bowel syndrome Diagnosing the cause of abdominal pain Your healthcare provider will give you a physical exam help find the cause of your pain. If needed,you will have tests. Belly pain has many possible causes. So it can be hard to find the reason for your pain. Giving details about your pain can help. Tell your provider where and when you feel the pain, and what makes it better or worse. Also let your provider know if you have other symptoms such as: Fever Tiredness Upset stomach (nausea) Vomiting Changes in bathroom habits Blood in the stool or black, tarry stool Weight loss that you can't explain (involuntary weight loss?) Also report any family history of stomach or intestinal problems, or cancers. Tell your provider about all your alcohol use and drug use. Tell your provider about all medicines you use, including herbs, vitamins, and supplements. Treating abdominal pain Some causes of pain need emergency medical treatment right away. These include appendicitis or a bowel blockage. Other problems can be treated with rest, fluids, or medicines. Your healthcare provider can give you specific instructions for treatment or self-care based on what is causing your pain. If you have vomiting or diarrhea, sip water or other clear fluids. When you are ready to eat solid foods again, start with small amounts of pgvo-nx-aucdpq, low- fat foods. These include apple sauce, toast, or crackers. When to get medical care Call 911 or go to the hospital right away if you: Can t pass stool and are vomiting Are vomiting blood or have bloody diarrhea or black, tarry diarrhea Have chest, neck, or shoulder pain Feel like you might pass out Have pain in your shoulder blades with nausea Have sudden, severe belly pain Have new, severe pain unlike any you have felt before Have a belly that is rigid, hard, and hurts to touch Call your healthcare provider if you have: Pain for more than 5 days Bloating for more than 2 days Diarrhea for more than 5 days A fever of 100.4 F (38 C) or higher, or as directed by your healthcare provider Pain that gets worse Weight loss for no reason Continued lack of appetite Blood in your stool How to prevent abdominal pain Here are some tips to help prevent abdominal pain: Eat smaller amounts of food at each meal. Don't eat greasy, fried, or other high-fat foods. Don't eat foods that give you gas. Exercise regularly. Drink plenty of fluids. To help prevent GERD symptoms: Quit smoking. Reduce alcohol and foods that increase stomach acid. Don't use aspirin or twyl-gwb-cqhcybo pain and fever medicines, if possible. This includes nonsteroidal anti-inflammatory drugs (NSAIDs). Lose excess weight. Finish eating at least 2 hours before you go to bed or lie down. Raise the head of your bed. 3839-4046 [employer]. [address] [place] [address], [place] [address]. All rights reserved. This information is not intended as a substitute for professional medical care. Always follow yourhealthcare professional's instructions. Additional Information VACCINATE! IT SAVES LIVES! Members of the community who have not yet received the COVID-19 vaccine and would like to receive it can visit one of [facility] vaccine clinics. There are many vaccine clinic locations within the [facility]. For locations and available times, please visit [email or web address]. It is important to note that some COVID mobile vaccine clinics are held outdoors and may be canceled in rainy orstormy conditions. To learn more about pediatric vaccinations (ages 5-11), we invite you to visit the [facility] webpage. [email or web address] learn more about the COVID-19 vaccine, we invite you to visit the [facility] website for a list of frequently asked questions. [email or web address] [facility] Patient Portal Access Instructions: Stay connected with your healthcare team and access your personal medical information anytime with the [facility] Portal. If you would like a full copy of your medical records please contact the [facility] Medical Records Department Sunday through Sunday between 8a.m. and 4:30p.m. Please follow the directions below to access the portal: 1.Access the email account you provided upon registration to the [facility].2.Look for an invitation email from [facility].3.Open the email and access the invitation link: Accept Invitation to [facility]4.Fill in the required milton to create your account. Sign into [email or web address] with your username and password that you created in the above steps to stay up to date. You can then view a summary of results, a summary of your visits, and the ability to download your summaries to your computer or send the information securely to a physician. Remember that your healthcare information is confidential, so carefully consider who you will allow to register on the [facility] Patient Portal for access to your information. You can also access the [facility] Patient Portal on the [employer]. Simply click on Health Records under [employer] and then click on the [employer] logo. HOW TO SAFELY DISPOSE OF PRESCRIPTION MEDICATIONS Please use one of the following methods to safely dispose of your unused medications. 1.Use a drug disposal kit: the drug disposal pouch allows you to safely discard your old and unuseddrugs. Ask your nurse to give you one when you are discharged.2.Visit a local take-back location: Many local pharmacies and police departments have programs that collect old and unwanted prescriptiondrugs. Call your local pharmacy or go to http://bit.Post-A-Vox/0D1Nx3i to find one close to you.3.Make use of household items: Use cat litter or old coffee grounds to dispose medications if other options arenot available. Mix your drugs with these household products, seal them in an airtight container andthrow it into the garbage. Call [facility]: [phone] to be sure your drugs can be disposed of in this way. Some medicines may require a different approach.4.Never flush your medications down the toilet. IF YOU HAVE BEEN PRESCRIBED AN OPIOIDS FOR PAIN If you have been prescribed an opioid (such as hydrocodone, oxycodone or morphine), it is critical to understand the possible side effects and risks of opioid pain medications. Even when taken as directed, opioids can have several side effects including: Tolerance, meaning you might need to take more of a medication for the same pain relief. Nausea, vomiting and/or constipation. Sleepiness, dizziness, dry mouth, confusion, depression or itching. Physical dependence, meaning you have withdrawal symptoms when a medication is stopped ? this can develop within a few days. KNOW YOUR RESPONSIBILITIES It is important to know exactly how much and how often to take the opioid pain medications you are prescribed. Never take opioids in higher amounts or more often than prescribed. Do not combine opioids with alcohol or other drugs that cause drowsiness, such as benzodiazepines, also known as benzos,including diazepam and alprazolam, muscle relaxants or sleep aids. Never sell or share prescriptionopioids. This is illegal. Store opioids in a secure place and out of reach of others (including children, family, friends and visitors). The last page(s) of this document has been signed and retained as a CHART COPY Signatures Patient Education Materials Abdominal Pain Medication Leaflets ondansetron (oral), fluconazole (oral/injection), ciprofloxacin (oral) My discharge plan and instructions have been reviewed and explained to me and I,HEAVEN MONROE understand my current condition and have read and understand these discharge instructions. I have received a written copy of the plan/instructions. If I have questions, I am aware that I should contactmy doctor. 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 Multiplanar reformatted images are provided for review. Automated exposure control, iterative reconstruction, and/or weight based adjustment of the mA/kV was utilized to reduce the radiation dose to as low as reasonably achievable. COMPARISON: None. HISTORY: ORDERING SYSTEM PROVIDED HISTORY: Reason for Exam: pain FINDINGS: Dedicated CTA chest is dictated in a separate report. Inflammation is noted adjacent to the body of the pancreas and along the postsurgical stomach. Suture line is noted along the stomach. Liver, spleen, adrenal glands, and kidneys demonstrate no acute findings. The gallbladder appears to be surgically absent. No intra or extrahepatic biliary ductal dilatation identified. Small bowel and colon appear to be normal in course. There is mild subtle haziness adjacent to the the descending colon which could represent a mild infectious or inflammatory colitis. Urinary bladder and pelvic structure evaluation is limited due to bilateral hip arthroplasty hardware and subsequent metallic streak artifact. Visualized osseous structures appear to be intact. Degenerative changes are noted throughout the spine. There is severe disc space loss at L2-L3. Small fat containing periumbilical hernia is noted. No intra-abdominal free air. Aorta is normal in caliber, scattered atherosclerotic calcification is present along its course. The IMPRESSION: Inflammation noted adjacent to the pancreas and postsurgical stomach, this could potentially represent a mild acute pancreatitis, correlation with amylase and lipase values is suggested. No focal fluid collection or abscess formation is identified. Mild haziness noted along the course of the descending:, could represent a mild infectious or inflammatory colitis. Interpreted by: Donita Goldman MD Preliminary Report By: Donita Goldman MD Electronically signed By Donita Goldman MD Dictated Date: 04/09/2022 5:21:32 AM Prelim Date: 04/09/2022 5:26:03 AM Sign Date: 04/09/2022 5:26:03 AM Ordering Provider: SAMANTHA [facility]07-17-2022 Note ORIGINAL EXAMINATION: CTA OF THE CHEST 04/09/2022 5:15 am TECHNIQUE: CTA of the chest was performed after the administration of intravenous contrast. Multiplanar reformatted images are provided for review. MIP images are provided for review. Automated exposure control, iterative reconstruction, and/or weight based adjustment of the mA/kV was utilized to reduce the radiation dose to as low as reasonably achievable. COMPARISON: None. HISTORY: ORDERING SYSTEM PROVIDED HISTORY: Reason for Exam: chest pain; suspect PE FINDINGS: Pulmonary Arteries: Pulmonary arteries are adequately opacified for evaluation. No evidence of intraluminal filling defect to suggest pulmonary embolism. Main pulmonary artery is normal in caliber. Mediastinum: No evidence of mediastinal lymphadenopathy. The heart and pericardium demonstrate no acute abnormality. There is no acute abnormality of the thoracic aorta. Lungs/pleura: The lungs are without acute process. Scarring and or atelectasis is noted at the lung bases. Per no focal consolidation or pulmonary edema. No evidence of pleural effusion or pneumothorax. Dedicated CT abdomen/pelvis is dictated in a separate report. Soft Tissues/Bones: No acute bone or soft tissue abnormality. Degenerative changes are noted throughout the spine. Remote appearing 9th rib fracture is suspected posteriorly on the right. IMPRESSION: No evidence of pulmonary embolism or acute pulmonary abnormality. Suspected remote posterior right 9th rib fracture. Interpreted by: Donita Goldman MD Preliminary Report By: Donita Goldman MD Electronically signed By Donita Goldman MD Dictated Date: 04/09/2022 5:18:15 AM Prelim Date: 04/09/2022 5:21:24 AM Sign Date: 04/09/2022 5:21:24 AM Ordering Provider: [place] [id number] Note ORIGINAL EXAMINATION: CT OF THE HEAD WITHOUT CONTRAST 04/09/2022 5:11 am TECHNIQUE: CT of the head was performed without the administration of intravenous contrast. Automated exposure control, iterative reconstruction, and/or weight based adjustment of the mA/kV was utilized to reduce the radiation dose to as low as reasonably achievable. COMPARISON: None. HISTORY: ORDERING SYSTEM PROVIDED HISTORY: Reason for Exam: Altered mental status FINDINGS: BRAIN/VENTRICLES: There is no acute intracranial hemorrhage, mass effect or midline shift. No abnormal extra-axial fluid collection. The hathaway-white differentiation is maintained without evidence of an acute infarct. There is no evidence of hydrocephalus. ORBITS: The visualized portion of the orbits demonstrate no acute abnormality. SINUSES: The visualized paranasal sinuses and mastoid air cells demonstrate no acute abnormality. SOFT TISSUES/SKULL: No acute abnormality of the visualized skull or soft tissues. IMPRESSION: No acute intracranial abnormality. Interpreted by: Donita Goldman MD Preliminary Report By: Donita Goldman MD Electronically signed By Donita Goldman MD Dictated Date: 04/09/2022 5:16:28 AM Prelim Date: 04/09/2022 5:17:06 AM Sign Date: 04/09/2022 5:17:06 AM Ordering Provider: SAMANTHA VOGEL [facility]07-17-2022 Note ORIGINAL EXAMINATION: CT OF THE ABDOMEN AND PELVIS WITH CONTRAST 04/09/2022 5:18 am TECHNIQUE: CT of the abdomen and pelvis was performed with the administration of intravenous contrast. Multiplanar reformatted images are provided for review. Automated exposure control, iterative reconstruction, and/or weight based adjustment of the mA/kV was utilized to reduce the radiation dose to as low as reasonably achievable. COMPARISON: None. HISTORY: ORDERING SYSTEM PROVIDED HISTORY: Reason for Exam: pain FINDINGS: Dedicated CTA chest is dictated in a separate report. Inflammation is noted adjacent to the body of the pancreas and along the postsurgical stomach. Suture line is noted along the stomach. Liver, spleen, adrenal glands, and kidneys demonstrate no acute findings. The gallbladder appears to be surgically absent. No intra or extrahepatic biliary ductal dilatation identified. Small bowel and colon appear to be normal in course. There is mild subtle haziness adjacent to the the descending colon which could represent a mild infectious or inflammatory colitis. Urinary bladder and pelvic structure evaluation is limited due to bilateral hip arthroplasty hardware and subsequent metallic streak artifact. Visualized osseous structures appear to be intact. Degenerative changes are noted throughout the spine. There is severe disc space loss at L2-L3. Small fat containing periumbilical hernia is noted. No intra-abdominal free air. Aorta is normal in caliber, scattered atherosclerotic calcification is present along its course. The IMPRESSION: Inflammation noted adjacent to the pancreas and postsurgical stomach, this could potentially represent a mild acute pancreatitis, correlation with amylase and lipase values is suggested. No focal fluid collection or abscess formation is identified. Mild haziness noted along the course of the descending:, could represent a mild infectious or inflammatory colitis. Interpreted by: Donita Goldman MD Preliminary Report By: Donita Goldman MD Electronically signed By Donita Goldman MD Dictated Date: 04/09/2022 5:21:32 AM Prelim Date: 04/09/2022 5:26:03 AM Sign Date: 04/09/2022 5:26:03 AM Ordering Provider: SAMANTHA [facility]07-17-2022 Note ORIGINAL EXAMINATION: CTA OF THE CHEST 04/09/2022 5:15 am TECHNIQUE: CTA of the chest was performed after the administration of intravenous contrast. Multiplanar reformatted images are provided for review. MIP images are provided for review. Automated exposure control, iterative reconstruction, and/or weight based adjustment of the mA/kV was utilized to reduce the radiation dose to as low as reasonably achievable. COMPARISON: None. HISTORY: ORDERING SYSTEM PROVIDED HISTORY: Reason for Exam: chest pain; suspect PE FINDINGS: Pulmonary Arteries: Pulmonary arteries are adequately opacified for evaluation. No evidence of intraluminal filling defect to suggest pulmonary embolism. Main pulmonary artery is normal in caliber. Mediastinum: No evidence of mediastinal lymphadenopathy. The heart and pericardium demonstrate no acute abnormality. There is no acute abnormality of the thoracic aorta. Lungs/pleura: The lungs are without acute process. Scarring and or atelectasis is noted at the lung bases. Per no focal consolidation or pulmonary edema. No evidence of pleural effusion or pneumothorax. Dedicated CT abdomen/pelvis is dictated in a separate report. Soft Tissues/Bones: No acute bone or soft tissue abnormality. Degenerative changes are noted throughout the spine. Remote appearing 9th rib fracture is suspected posteriorly on the right. IMPRESSION: No evidence of pulmonary embolism or acute pulmonary abnormality. Suspected remote posterior right 9th rib fracture. Interpreted by: Donita Goldman MD Preliminary Report By: Donita Goldman MD Electronically signed By Donita Goldman MD Dictated Date: 04/09/2022 5:18:15 AM Prelim Date: 04/09/2022 5:21:24 AM Sign Date: 04/09/2022 5:21:24 AM Ordering Provider: [facility]07-17-2022 Note ORIGINAL EXAMINATION: CT OF THE HEAD WITHOUT CONTRAST 04/09/2022 5:11 am TECHNIQUE: CT of the head was performed without the administration of intravenous contrast. Automated exposure control, iterative reconstruction, and/or weight based adjustment of the mA/kV was utilized to reduce the radiation dose to as low as reasonably achievable. COMPARISON: None. HISTORY: ORDERING SYSTEM PROVIDED HISTORY: Reason for Exam: Altered mental status FINDINGS: BRAIN/VENTRICLES: There is no acute intracranial hemorrhage, mass effect or midline shift. No abnormal extra-axial fluid collection. The hathaway-white differentiation is maintained without evidence of an acute infarct. There is no evidence of hydrocephalus. ORBITS: The visualized portion of the orbits demonstrate no acute abnormality. SINUSES: The visualized paranasal sinuses and mastoid air cells demonstrate no acute abnormality. SOFT TISSUES/SKULL: No acute abnormality of the visualized skull or soft tissues. IMPRESSION: No acute intracranial abnormality. Interpreted by: Donita Goldman MD Preliminary Report By: Donita Goldman MD Electronically signed By Donita Goldman MD Dictated Date: 04/09/2022 5:16:28 AM Prelim Date: 04/09/2022 5:17:06 AM Sign Date: 04/09/2022 5:17:06 AM Ordering Provider: [facility]05-26-2022 NotePatient ID: Heaven Monroe Patient's PCP: ELISSA DIAL Admit Date: 02/15/2022 Discharge Date: 02/16/22 Admitting Physician: Tung Curry MD Discharge Physician: Trevor Bravo MD Active Discharge Diagnoses: Primary Problem Morbid obesity with BMI of 45.0-49.9, adult ([facility]) Hospital Problems Active Hospital Problems Diagnosis Date Noted ? Obesity [E66.9] 02/15/2022 Priority: Medium ? Anticoagulated on Coumadin [Z79.01] 05/31/2021 ? Morbid obesity with BMI of 45.0-49.9, adult (HCC) [E66.01, Z68.42] 02/03/2021 ? MITZI on CPAP [G47.33, Z99.89] ? Hypertension [I10] ? GERD (gastroesophageal reflux disease) [K21.9] ? Diabetes mellitus (HCC) [E11.9] The patient was seen and examined on day of discharge and this discharge summary is in conjunction with any daily progress note from day of discharge. Code Status: Full Code Hospital Course: Patient was admitted to [facility] with the chief complaint of obesity. Patient was taken to the operating room and under went a LSG. Patient progressed throughout hospitalization. On discharge, patient had stable vital signs, tolerating diet, ambulating, with pain controlled on PO pain medication. Patient has follow up appointments as specified below. Consult(s): None Procedure(s): None Disposition: Home Discharged Condition: Stable Follow Up: Tung Curry MD [address] [facility] [address] [facility] [id number] On 02/23/2022 For post op follow up 0730am Elissa Bronsonutzman [address] [place] [id number] Diet: Bariatric clears Discharge Medications: Medication List START taking these medications ondansetron 4 MG tablet Commonly known as: ZOFRAN Take 1 tablet by mouth every 4-6 hours as needed for Nausea or Vomiting oxyCODONE-acetaminophen 5-325 MG per tablet Commonly known as: Percocet Take 1 tablet by mouth every 6 hours as needed for Pain for up to 7 days. Intended supply: 7 days. Take lowest dose possible to manage pain CONTINUE taking these medications benzonatate 100 MG capsule Commonly known as: TESSALON BiPAP Machine Misc dilTIAZem 180 MG extended release capsule Commonly known as: CARDIZEM CD enoxaparin 120 MG/0.8ML injection Commonly known as: Lovenox Inject 0.8 mLs into the skin every 12 hours As directed fenofibrate 160 MG tablet Commonly known as: TRIGLIDE furosemide 20 MG tablet Commonly known as: LASIX gabapentin 100 MG capsule Commonly known as: NEURONTIN glipiZIDE 10 MG extended release tablet Commonly known as: GLUCOTROL XL hydroCHLOROthiazide 25 MG tablet Commonly known as: HYDRODIURIL Jantoven 2 MG tablet Generic drug: warfarin losartan 100 MG tablet Commonly known as: COZAAR meclizine 25 MG tablet Commonly known as: ANTIVERT metFORMIN 1000 MG tablet Commonly known as: GLUCOPHAGE MULTIVITAMIN/IRON PO omeprazole 20 MG delayed release capsule Commonly known as: PRILOSEC Take 1 capsule by mouth Daily rOPINIRole 3 MG tablet Commonly known as: REQUIP sertraline 100 MG tablet Commonly known as: ZOLOFT Toviaz 8 MG Tb24 Generic drug: Fesoterodine Fumarate ER traMADol 50 MG tablet Commonly known as: ULTRAM Vitamin B-12 500 MCG Subl VITAMIN D (CHOLECALCIFEROL) PO Wixela Inhub 250-50 MCG/ACT Aepb diskus inhaler Generic drug: fluticasone-salmeterol Where to Get Your Medications These medications were sent to [facility] [address] - [address] [facility] - [phone] - F [phone] [address] [facility] [id number] ? enoxaparin 120 MG/0.8ML injection These medications were sent to [facility] [address] - [phone] - F [phone] [place] [id number] ? ondansetron 4 MG tablet ? oxyCODONE-acetaminophen 5-325 MG per tablet Thank you Dr. ELISSA DIAL for the opportunity to be involved in this patient's care.[facility]05-26-2022 History of Present illness Narrative* Melba Vo RN - 02/16/2022 4:17 PM EDT Went over discharge instructions, med rec, and prescriptions with pt. Pt verbalized understanding. Meds to beds delivered meds. Will notify staff when her ride arrives * Margie Hunter RN - 02/16/2022 8:27 AM EDT Bariatric outside machinist Note - POD #1 - AM Patient s/p LSG UGI done Extravasation: No Delayed gastric emptying: No Begin Bariatric Clear Liquid Diet: Yes Diet protocol reviewed with patient: Yes One ounce every 30 minutes height is 5' 4 (1.626 m) and weight is 267 lb 6.4 oz (121.3 kg). Her temporal temperature is 96.8 F (36 C). Her blood pressure is 126/59 (abnormal) and her pulse is 61. Her respiration is 16 and oxygen saturation is 94%. Total output last 24 hours: In: 800 Out: 15 Abdomen soft, nontender Bowel sounds:hypoactive Laparoscopy incisions: clean, dry and intact Steri-strips intact: Yes Instructed patient to ambulate and use incentive spirometer. SCDs to bilateral lower extremities on while in bed. Monitor tolerance to liquids Pain Control: Pain is well controlled with current treatment. Current treatment: oral pain medication initiated Home medications reviewed Interventions: No Plan for discharge instruction: today * Larissa Mendosa - 02/16/2022 7:50 AM EDT Preliminary images negative. * Kayden Cruz RCP - 02/15/2022 8:20 PM EDT [facility] Respiratory Care Department Progress Note As part of the Respiratory Assessment Program (RAP), the following Respiratory Therapist evaluationhas been completed, including a chart review and clinical/physical assessment. Respiratory Therapist RAP Evaluation Guideline Points 0 1 2 3 4 Points Strongly Consider History Factor No Pulmonary conditions Stable Pulmonary condition(s) Surgery or Intervention that may impact Pulmonary system (at risk) Surgery or Intervention that is impacting Pulmonary system Active Exacerbation of Pulmonary Condition 0 Respiratory Pattern Regular, RR= 12-18 THOMPSON or Increased RR= 19-24 Irregular, or RR= 25-30 SOB, talk in short sentences, or RR= 31-35 Severe SOB, accessory muscle use, one word answers, or RR>35 0 Aerosol Med(s), High Flow O2 Breath Sounds Clear Diminished in 1 lobe Diminished in ? 2 lobes Adventitious breath sounds Coarse crackles, Wheezes, or Diminished in >2 lobes 2 Aerosol Med(s), Bronchial Hygiene, Hyperinflation Cough & Sputum Strong cough, no secretion retention or production Weak cough, no secretion retention or production Weak cough, w/ production (less often than Q2hr), or secretion retention No cough, w/ secretion retention or production (less often than Q2hr) Significant secretion production (more often than Q2hr) or mucus plug 0 Aerosol Med(s), Bronchial Hygiene, Hyperinflation Level of Activity Ambulatory Ambulatory with Assist Up in chair or edge of bed (dangle) Non-ambulatory, bedridden with active ROM Completely paralyzed or without active ROM 0 Triage 5 0-2 Triage 4 3-5 Triage 3 6-10 Triage 2 11-14 Triage 1 ?15 Total 2 Triage Score = 5 TRIAGE SCORING SUGGESTED FREQUENCIES Aerosol Therapy Bronchial Hygiene Hyperinflation Triage Score Q4h & PRN 1 Q4hWA (QID) & PRN 2 TID & PRN 3 BID & PRN 4 PRN 5 Therapy(s) Indicated Yes/No Aerosol Medication y Hyperinflation n Bronchial Hygiene n High Flow Oxygen n RT to enter/modify frequency of treatment order in EMR/EHR to match this RAP evaluation. Based on this RAP evaluation the following therapy is being initiated: albuterol At the following frequency: PRN Comments: Thank you for involving Respiratory in the care of this patient, * Violet Emmanuel RN - 02/15/2022 1:44 PM EDT Patient stated she would update the family on room on H6 * Violet Emmanuel RN - 02/15/2022 10:42 AM EDT Angus updated via smart call documented in this encounterSUMMA Work Phone: [phone]) 153-288605-25-2022 Hospital Discharge instructions* Instructions* Sushila Serrano RD, LD - 02/15/2022 [facility] DISCHARGE INSTRUCTIONS The following information was reviewed with the patient, the patient was given a hard copy of theseinstructions by the Bariatric outside machinist, and the instructions were signed by the patient. Post-Operative Patient Instructions Laparoscopic Sleeve Gastrectomy Procedure 1. Leave the steri-strips in place (white paper tape over the incisions). They may come off on their own, do not replace if they come off. The stitches are buried under the skin and will dissolve on their own. Use elastic binder as you desire. 2. Take your temperature twice a day for the first post-operative week. Call if temperature is >101 F. 3. You may shower at any point, just blot the incisions dry when you are done. Use only soap and water on the wounds, do not use ointments, lotions, powders or antibiotic ointment. 4. If incisions begin to look infected (redness, swelling, drainage, pain) notify outside machinist. 5. You will be discharged home with a drain. It will be removed at your first office visit. Daily dressing changes and twice daily emptying of the grenade is required at home. Milking or stripping the tubing should be done 2-3 times daily. You will be given the supplies needed to perform these tasks. 6. It is also important to observe the color of the drainage in the grenade. The color will tar heat exchanger cleaner time. Normal color changes include Red ? [place] ? [place]/ Yellow ? [place] and will always be clear in appearance. Abnormal color changes include a caramel color (harris and cloudy), a brown or black appearance or a color change matching the color of what you just drank. (mix up your flavors) An abnormal color change requires an immediate phone call to the B[facility] Care Center. 7. Resume your home medications as directed by your surgeon and your nurse catalytic case operator. Make an appointment with your prescribing physician if you are taking medication for your blood pressure or diabetes. You will need close follow-up regarding your medical conditions, as you will soon be off many of these medications. 8. No aspirin or aspirin containing medications should be taken at all. 9. Follow our food guidelines closely. Remember, clear liquids for the first two days after surgery. No sugar, caffeine or carbonation. Your fluid requirement is 64 oz. per day. You may advance to full liquids on post-op day three. This is in addition to the clear liquid diet. 10. Do not take your calcium, B12 or multivitamin with iron until after your one week appointment. 11. No alcoholic beverages at all during the first 18 months post-op. 12. No lifting, pushing, or pulling over 15 lbs. for one month. You may go up and down stairs. No driving for 1 week after surgery. Do not drive if you are taking prescription pain medication. 13. Walking as part of your daily activities is required immediately. Walking extensively for exercise is not permitted until you are cleared by your surgeon (usually 4-6 weeks after surgery). 14. You will be able to begin exercising in 4-6 weeks, but must be cleared by your surgeon at your one month appointment. 15. Use your incentive spirometer from the hospital for the first post-operative week as instructed, 10 times every other hour while awake. 16. Prior to returning to work, you will be seen, evaluated and cleared by your surgeon. 17. Remember, you will have pain!!! Take your pain medicine so that you are comfortable enough to cough, deep breath and walk. 18. Fatigue is quite common in the first post- operative week. Rest appropriately in response to this fatigue. Remember that mobility after surgery is very important. You must not remain in a sittingor recumbent position for long periods of time. 19. If you have obstructive sleep apnea and have been prescribed a CPAP machine, you must continue to use this device after surgery. 20. Please call the [facility] at [phone] if you have any questions or concerns during business hours: Mon.-Fri. 8:00 a.m. - 4:30 p.m. The answering service may be called during non-business hours at [phone]. 21. Call your surgeon for problems, or if you have any of the following: * Temperature >101 F. (Take your temperature twice a day in the morning and evening until your first office visit) * Redness, pain, swelling or drainage from any of the incisions * Inability to pass urine or have bowel movements * ANY shortness of breath, chest pain, leg swelling or leg pain (in one or both of your legs) * Rapid heart rate * Nausea and/or vomiting with inability to keep liquids down * Bleeding from your rectum * Frequently feeling dizzy or light headed, inability to walk * Abnormal drain color appearance 22. If you have a medical emergency, call 911 or go to the closest hospital emergency room. 23. Your one week and one month follow-up office visits with your surgeon at the [facility] are located in the discharge folder. [facility] DISCHARGE INSTRUCTIONS The following information was reviewed with the patient, and the patient was given a hard copy of these instructions by the Bariatric Registered Dietitian. Bariatric Dietitian Discharge instructions Please follow these instructions until your 1 week office visit General Guidelines: 1. Divide food into three (3) small meals and three (3) small snacks. 2. Eat the food Very slowly, using smaller size utensils. If you feel full, STOP eating. 3. Drink liquids 30 minutes before or 30 minutes after meals and snacks. 4.Do not use a straw. 5. Start tracking your protein intake - 65-75 grams daily should be your total. Foods Allowed In addition to all foods permitted on the clear liequid diet, you may have: 1.Diluted fruit juices that are pulp-free. 2. Low-fat, strained cream soups. 3. Sugar-free strained creamed soups 4. Sugar-free pudding with protein powder 5. Sugar substitutes 6. Thin cooked cereals 7. Low-sugar yogurt without fruit 8. Skim milk or 1% milk 9. Lactaid, soy or almond milk 10. Low-fat or nonfat cottage cheese )mashed with a fork and then chewed thoroughly before swallowing) 11. Protein powder 12. High protein, low-sugar beverages and shakes (see list in Patient Education Manual) [facility] DIETITIAN DISCHARGE INSTRUCTIONS The following information was reviewed with the patient, and the patient was given a hard copy of these instructions by the Bariatric Registered Dietitian. Overview of Post-Op Diet Protocol for Patients Following Gastric Bypass or Sleeve Gastrectomy Your dietitian will meet with you in the hospital before you are discharged to review the diet in more details and to answer any questions you may have, Day of Surgery (after you wake up from surgery) Nothing to eat or drink Post-op Day 1 If you are having an UGI xray, you will begin your clear liquids after you are notified that the results are back and you are cleared to begin If you are NOT having an UGI xray, you will begin your clear liquids as soon as your nurse notifiesyou that it is OK to start. Post-Op Day 2 Continue your bariatric clear liquid diet Post-op Day 3 Begin full liquid diet and continue until after your 1 week post-op visit You will continue to follow the full liquid diet until after you meet with your dietitian during your 1 week post-op office visit. The next diet phases will be reviewed and discussed with your duringthat visit, If you have questions about your diet(s), please contact the Bariatric Dietitians at [phone]. Reviewed by Sushila Serrano RD, ABHISHEK RD LD * Attachments The following attachments cannot be sent through Care Everywhere. * Enoxaparin (Lovenox) (Kittitian) [facility] Work Phone: [phone] Hospital Discharge instructions* Instructions* Kylah Burns RN - 01/30/[address] CURRY'S ORDERS REGARDING . DIET AND MEDICATION INSTRUCTIONS GIVEN TO YOU IN BARIATRIC CLASS. SHOWER USING HIBICLENS OR DIRECTED BY YOUR SURGEON THE MORNING OF SURGERY. OTHER SPECIAL INSTRUCTIONS FOLLOW ANY FURTHER INSTRUCTIONS THAT YOUR SURGEON MAY HAVE GIVEN TO YOU PLEASE BRING FOLDER WITH YOU THE DAY OF SURGERY IF YOU HAVE SPECIFIC QUESTIONS, PLEASE CALL THE BARIATRIC CENTER. YOU WILL RECEIVE A REMINDER PHONE CALL THE DAY BEFORE SURGERY You may use the free hardware manager parking at the main entrance on [address] [place] [address], or the free parking in the [facility] parking deck Please bring your CPAP/BiPAP device, mask, and equipment with you on the day of surgery. Do not bring water for your machine, it will be provided. * Attachments The following attachments cannot be sent through Care Everywhere. * Sleeve Gastrectomy: Pre-op (Kittitian) * Sleeve Gastrectomy: Post-op (Kittitian) documented in this encounter[facility] Work Phone: Evaluation + Plan note No data available for this section [facility] Evaluation note* Diagnosis GERD (gastroesophageal reflux disease)- Primary Esophageal reflux Chronic superficial gastritis without bleeding Atrophic gastritis without mention of hemorrhage Anticoagulated on Coumadin Encounter for therapeutic drug monitoring Gastric polyp Benign neoplasm of stomach MITZI on CPAP Obstructive sleep apnea (adult) (pediatric) Diabetes mellitus (HCC) Type II or unspecified type 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 without mention of complication, not stated as uncontrolled Class 3 severe obesity due to excess calories with serious comorbidity and body mass index (BMI) of 45.0 to 49.9 in adult ([facility]) documented in this encounter [facility] Work Phone: Evaluation note* Diagnosis Class 3 severe obesity due to excess calories with serious comorbidity and body mass index (BMI) of 45.0 to 49.9 in adult ([facility]) Type 2 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 with other specified complication, 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) Hypercholesteremia Pure hypercholesterolemia Essential hypertension Unspecified essential hypertension MITZI on CPAP Obstructive sleep apnea (adult) (pediatric) Back pain, unspecified back location, unspecified back pain laterality, unspecified chronicity documented in this encounter [facility] Work Phone: Evaluation note* Diagnosis Pre-operative exam Preoperative examination, unspecified Morbid obesity due to excess calories ([facility]) Type 2 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 with other specified complication, 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) MITZI on CPAP Obstructive sleep apnea (adult) (pediatric) documented in this encounter [facility] Work Phone: Evaluation noteNo assessment information available [facility] Work Phone: Evaluation note* Diagnosis Morbid obesity with BMI of 45.0-49.9, adult ([facility])- Primary MITZI on CPAP Obstructive sleep apnea (adult) (pediatric) Hypertension Unspecified essential hypertension Anticoagulated on Coumadin Encounter for therapeutic drug monitoring GERD (gastroesophageal reflux disease) Esophageal reflux Diabetes mellitus ([facility]) Type II or unspecified type 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 without mention of complication, not stated as uncontrolled Obesity Obesity, unspecified documented in this encounter [facility] Work Phone: Evaluation note* Diagnosis Primary hypertension Unspecified essential hypertension Gastroesophageal reflux disease without esophagitis Esophageal reflux Type 2 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 with other specified complication, 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 ([facility]) MITZI on CPAP Obstructive sleep apnea (adult) (pediatric) High cholesterol Pure hypercholesterolemia Deficiency of multiple nutrient elements Other nutritional deficiency Class 3 severe obesity due to excess calories with serious comorbidity and body mass index (BMI) of 40.0 to 44.9 in adult ([facility]) Encounter for postoperative care Oral thrush Candidiasis of mouth documented in this encounter [facility] Work Phone: Evaluation note* Diagnosis Hypokalemia Hypopotassemia Hypomagnesemia Disorders of magnesium metabolism documented in this encounter [facility] Work Phone: Evaluation note* Diagnosis Primary hypertension Unspecified essential hypertension Gastroesophageal reflux disease without esophagitis Esophageal reflux Type 2 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 with other specified complication, unspecified whether m[facility]p insulin use ([facility]) MITZI on CPAP Obstructive sleep apnea (adult) (pediatric) High cholesterol Pure hypercholesterolemia Deficiency of multiple nutrient elements Other nutritional deficiency Class 3 severe obesity due to excess calories with serious comorbidity and body mass index (BMI) of 40.0 to 44.9 in adult ([facility]) Low serum vitamin B12 Vitamin D deficiency Unspecified vitamin D deficiency Low magnesium level Low serum potassium documented in this encounter [facility] Work Phone: Evaluation note* Diagnosis Onset Date Resolution Status Morbid obesity due to excess calories acute Asthma chronic Chronic diastolic heart failure chronic MITZI (obstructive sleep apnea) [facility] Work Phone: Evaluation note* Diagnosis Onset Date Resolution Status UTI (urinary tract infection) acute Yeast infection [facility] Work Phone: Evaluation note* Diagnosis Arthralgia of both knees- Primary GERD without esophagitis Esophageal reflux Primary hypertension Unspecified essential hypertension Type 2 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 without complication, 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 ([facility]) MITZI (obstructive sleep apnea) Obstructive sleep apnea (adult) (pediatric) Deficiency of multiple nutrient elements Other nutritional deficiency Morbid obesity with BMI of 40.0-44.9, adult ([facility]) documented in this encounter [facility] note* Diagnosis Low magnesium level- Primary Vitamin D deficiency Low hemoglobin and low hematocrit Low serum ferritin level documented in this encounter [facility] note* Diagnosis Onset Date Resolution Status Morbid obesity due to excess calories acute Asthma chronic Chronic diastolic heart failure chronic MITZI (obstructive sleep apnea) chronic 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 [facility] Work Phone: Evaluation note* Diagnosis Gastroesophageal reflux disease, unspecified whether esophagitis present- Primary BMI 40.0-44.9, adult ([facility]) Class 3 severe obesity with serious comorbidity and body mass index (BMI) of 40.0 to 44.9 in adult, unspecified obesity type ([facility]) S/P bariatric surgery Deficiency of multiple nutrient elements Other nutritional deficiency Type 2 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 without complication, without long-term current use of insulin ([facility]) ([facility]) documented in this encounter [facility]* Diagnosis Low vitamin D level- Primary Low hemoglobin Vitamin D deficiency documented in this encounter [facility]* Diagnosis Type 2 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 without complications ([facility]) ([facility])- Primary Essential (primary) hypertension Unspecified essential hypertension Deficiency of multiple nutrient elements Other nutritional deficiency Morbid (severe) obesity due to excess calories ([facility]) Body mass index (BMI) 40.0-44.9, adult ([facility]) Pain in left knee Pain in right knee GERD without esophagitis Esophageal reflux MITZI (obstructive sleep apnea) Obstructive sleep apnea (adult) (pediatric) High cholesterol Pure hypercholesterolemia Vitamin B deficiency Unspecified vitamin B deficiency Morbid obesity with BMI of 40.0-44.9, adult ([facility]) Arthralgia, unspecified joint Low magnesium level Vitamin D deficiency documented in this encounter [facility]* Diagnosis Low vitamin D level- Primary Low hemoglobin Vitamin D deficiency documented [facility] this encounter [facility]* Diagnosis Gastroesophageal reflux disease, unspecified whether esophagitis present- Primary BMI 40.0-44.9, adult ([facility]) Class 3 severe obesity with serious comorbidity and body mass index (BMI) of 40.0 to 44.9 in adult, unspecified obesity type ([facility]) S/P bariatric surgery Deficiency of multiple nutrient elements Other nutritional deficiency documented in this encounter [facility]* Diagnosis Vitamin D deficiency- Primary documented in this encounter [facility]* Diagnosis Anemia, unspecified- Primary Abnormal level of blood mineral Other abnormal blood chemistry Vitamin D deficiency, unspecified documented in this encounter [facility]* Diagnosis BMI 40.0-44.9, adult ([facility])- Primary Class 3 severe obesity with serious comorbidity and body mass index (BMI) of 40.0 to 44.9 in adult, unspecified obesity type ([facility]) S/P bariatric surgery Deficiency of multiple nutrient elements Other nutritional deficiency Type 2 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 without complication, without long-term current use of insulin ([facility]) ([facility]) Iron deficiency Disorders of iron metabolism Vitamin D deficiency Encounter for vitamin deficiency screening documented in this encounter [facility]* Diagnosis Onset Date Resolution Status Asthma chronic MITZI (obstructive sleep apnea) [facility] Work Phone: Evaluation note* Diagnosis Low vitamin D level- Primary Low serum ferritin level [facility] Diagnosis S/P bariatric surgery- Primary Deficiency of multiple nutrient elements Other nutritional deficiency Type 2 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 without complication, without long-term current use of insulin ([facility]) ([facility]) BMI 40.0-44.9, adult ([facility]) Class 3 severe obesity with serious comorbidity and body mass index (BMI) of 40.0 to 44.9 in adult, unspecified obesity type ([facility]) documented in this encounter [facility]* Diagnosis Vitamin D deficiency- Primary S/P bariatric surgery Iron deficiency Disorders of iron metabolism Type 2 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 without complication, without long-term current use of insulin ([facility]) ([facility]) BMI 40.0-44.9, adult ([facility]) Class 3 severe obesity with serious comorbidity and body mass index (BMI) of 40.0 to 44.9 in adult, unspecified obesity type ([facility]) documented in this encounter [facility]* Diagnosis S/P bariatric surgery- Primary Type 2 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 without complication, without long-term current use of insulin ([facility]) ([facility]) BMI 40.0-44.9, adult ([facility]) Class 3 severe obesity with serious comorbidity and body mass index (BMI) of 40.0 to 44.9 in adult, unspecified obesity type ([facility]) Vitamin D deficiency [facility]* Diagnosis Vitamin D deficiency- Primary documented in this encounter [facility]* Diagnosis S/P bariatric surgery- Primary Nausea Nausea alone Type 2 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 without complication, without long-term current use of insulin ([facility]) ([facility]) BMI 40.0-44.9, adult ([facility]) Class 3 severe obesity with serious comorbidity and body mass index (BMI) of 40.0 to 44.9 in adult, unspecified obesity type ([facility]) [facility]- Primary Deficiency of multiple nutrient elements Other nutritional deficiency Type 2 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 without complication, without long-term current use of insulin ([facility]) ([facility]) BMI 39.0-39.9,adult Class 2 severe obesity with serious comorbidity and body mass index (BMI) of 39.0 to 39.9 in adult, unspecified obesity type (HCC) [facility] S/P bariatric surgery- Primary Deficiency of multiple nutrient elements Other nutritional deficiency Type 2 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 without complication, without long-term current use of insulin ([facility]) ([facility]) BMI 40.0-44.9, adult ([facility]) Class 3 severe obesity with serious comorbidity and body mass index (BMI) of 40.0 to 44.9 in adult, unspecified obesity type ([facility]) documented in this encounter [facility] note* Diagnosis Vitamin D deficiency- Primary documented in this encounter [facility] note* Diagnosis S/P bariatric surgery- Primary Deficiency of multiple nutrient elements Other nutritional deficiency Type 2 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 without complication, without long-term current use of insulin ([facility]) ([facility]) BMI 40.0-44.9, adult ([facility]) documented in this encounter [facility] note* Diagnosis Arthralgia of both knees- Primary GERD without esophagitis Esophageal reflux Primary hypertension Unspecified essential hypertension Type 2 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 without complication, 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 ([facility]) MITZI (obstructive sleep apnea) Obstructive sleep apnea (adult) (pediatric) Deficiency of multiple nutrient elements Other nutritional deficiency Morbid obesity with BMI of 40.0-44.9, adult ([facility]) documented in this encounter [facility] note* Diagnosis Hypokalemia- Primary Hypopotassemia Obstructive sleep apnea (adult) (pediatric) Pure hypercholesterolemia, unspecified Deficiency of multiple nutrient elements Other nutritional deficiency Morbid (severe) obesity due to excess calories ([facility]) Body mass index (BMI) 39.0-39.9, adult Pain in unspecified joint Hypomagnesemia Disorders of magnesium metabolism documented in this encounter [facility] Discharge instructions* Instructions* Wandy Serrano RN - 05/31/2021 Upper GI Endoscopy: What to expect at home ACTIVITY: DO NOT DRIVE, OPERATE MACHINERY, OR DRINK ANY ALCOHOL TODAY. Avoid making critical decisions, signing legal documents, or performing any activity that requires alertness for the rest of the day. You may be bloated or have gas pains since air was introduced into the stomach for the procedure. You may need to pass the gas throughout the day. You may experience a mild sore throat. You may use an [id number] chloraseptic spray, gargle with warm salt water, or use throat lozenges. Notify your physician if this feeling lasts more than 48 hours. Rest the remainder of the day. You may resume normal activity tomorrow. You may return to work tomorrow. DIET: You may resume a normal diet unless notified or recommended by your physician. You may be eager to eat a large meal after fasting, but it is a good idea to start with light mealsand ease into solid foods the first day. (*) If your stomach is upset, try clear liquids and bland, low-fat foods like plain toast or rice. Drink plenty of fluids for the first 24 hours (unless your physician states otherwise). MEDICATION: Resume your normal home medications unless notified or recommended by your physician. If you take blood thinners (such as Coumadin, Eliquis, Plavix, Aspirin, etc.) or anti-inflammatory medications (Advil, Motrin, Aleve, etc.), ask your physician when you may resume these medications. FOLLOW-UP APPOINTMENT: Follow up with or call your physician as needed. When to call for help: Call your doctor IMMEDIATELY or seek medical care if you experience: Severe pain or vomiting Coughing up more than a teaspoon of blood You pass a large amount of tar-like stools Your belly is swollen and firm with severe pain A fever greater than 101 degrees Redness or swelling of arm from the IV site for more than 48 hours Sudden onset of chest pain or shortness of breath If you become extremely dizzy or pass out (lose consciousness) IF YOU ARE UNABLE TO REACH YOUR PHYSICIAN GO TO NEAREST EMERGENCY DEPARTMENT documented in this [facility] Work Phone: Hospital Discharge instructions No data available for this section [facility] Note* SAMANTHA VOGEL DO: SIGN, VERIFY Event Display: EKG [ED AOH] - CV Authored Date: [id number] [facility] Progress note No data available for this section [facility] Summary note* HEATHER Garcia: PERFORM Event Display: Patient Summary Documents Authored Date: [id number] [facility] [place] Summary Purpose Family History Relationship Condition Age at Onset Recorded Date/T pedro father Diabetes mellitus Unknown Cardiac disease Unknown mother Cerebrovascular accident (CVA) Unknown Alzheimer's disease Unknown sister Malignant neoplasm Unknown Family Member Condition Father Other Family Member No known family hist ory Mother Family Member Condition Father Other Family Member No known family hist ory Mother Advance Directives Documents on File Type Date Recorded 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 ACP-Advance Directive ACP-Power of Chemical Engineering Intern Latest Code Status on File Code Status Date Activated Date Inactivated Comments Full Code 05/31/2021 7:41 AM Latest Code Status on File Code Status Date Activated Date Inactivated Comments Full Code 05/31/2021 7:41 AM 05/31/2021 11:46 AM Documents on File Type Date Recorded 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 ACP-Advance Directive ACP-Power of Chemical Engineering Intern Latest Code Status on File Code Status Date Activated Date Inactivated Comments Full Code 05/31/2021 7:41 AM 05/31/2021 11:46 AM Advance Directive Response Recorded Date/ Time Advance Directives No February 09 11:03am Living Will No October 23 11:22am Power of Chemical Engineering Intern No October 23, 2021 11:22am Latest Code Status on File Code Status Date Activated Date Inactivated Comments Full Code 02/15/2022 3:56 PM Full Code 02/15/2022 6:03 AM 02/15/2022 3:27 PM Full Code 05/31/2021 7:41 AM 05/31/2021 11:46 AM Latest Code Status on File Code Status Date Activated Date Inactivated Comments Full Code 02/15/2022 3:56 PM 02/16/2022 7:56 PM Advance Directive Response Recorded Date/ Time Advance Directives No February 09 10:03am Living Will No October 23 10:22am Power of Chemical Engineering Intern No October 23, 2021 10:22am Documents on File Type Date Recorded 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 Power of Chemical Engineering Intern 03/29/2023 12:03 PM Reason for Referral Specialty Diagnoses / Procedures Referred By Nika t Referred To Contact Cardiology Diagnoses Pre-operative exam Morbid obesity due to excess calories (HCC) Type 2 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 with other specified complication, unspecified whether mcfp insulin use (HCC) MITZI on CPAP Procedures EKG 12 Lead Carlton Salvador PA [address] [place] [address] Referral ID Status Reason Start Date Expiration Date Visits Re quested Visits Authorized [id number] Open 12/08/2021 12/08/2022 1 1 Specialty Diagnoses / Procedures Referred By Nika murrieta Referred To Contact Diagnoses Type 2 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 without complication, without long-term current use of insulin (CMS/HCC) (HCC) Mikayla Frazier MD [address] [facility] [address] [place] [address] Referral ID Status Reason Start Date Expiration Date V isits Requested Visits Authorized [id number] Pending Review 1 1 Referral ID Status Reason Start Date Expiration Date V isits Requested Visits Authorized [id number] Authorized 09/24/2023 10/03/2024 1 1 Chief Complaint and Reason for Visit Chief Complaint N/V/D RIGHT CALF PAIN Chief Complaint 6 M FU Reason for Visit Morbid obesity due t o excess calories Asthma Chronic diastolic heart failure MITZI (obstructive sleep apnea) Chief Complaint 6 M FU RASH Reason for Visit Morbid obesity due t o excess calories Asthma Chronic diastolic heart failure MITZI (obstructive sleep apnea) Chief Complaint RASH YEAST INFECTION/UTI Reason for Visit UTI (urinary tract i nfection) Yeast infection Chief Complaint RASH YEAST INFECTION/UTI SEE ORDER Reason for Visit UTI (urinary tract i nfection) Yeast infection Chief Complaint RASH YEAST INFECTION/UTI SEE ORDER RECENT HEAD TRAUMA Reason for Visit UTI (urinary tract i nfection) Yeast infection Chief Complaint RASH YEAST INFECTION/UTI SEE ORDER RECENT HEAD TRAUMA B/L- KNEE PAIN Reason for Visit UTI (urinary tract i nfection) Yeast infection Chief Complaint RECENT HEAD TRAUMA B/L- KNEE PAIN 6 M FU Reason for Visit Morbid obesity due t o excess calories Asthma Chronic diastolic heart failure MITZI (obstructive sleep apnea) 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 syndrome Chief Complaint 6 M FU HEAD INJURY Reason for Visit Morbid obesity due t o excess calories Asthma Chronic diastolic heart failure MITZI (obstructive sleep apnea) 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 syndrome Chief Complaint 6 M FU Reason for Visit Asthma MITZI (obstructive sleep apnea) Additional Source Comments INFORMATION SOURCE (unrecogn ized section and content) DATE CREATED AUTHOR 01/20/2020 [facility] DATE CREATED AUTHOR AUTHOR'S ORGANIZ ATION 02/05/2020 [facility] DATE CREATED AUTHOR AUTHOR'S ORGANIZ ATION 04/15/2022 [facility] DATE CREATED AUTHOR AUTHOR'S ORGANIZ ATION 05/21/2022 [facility] DATE CREATED AUTHOR AUTHOR'S ORGANIZ ATION 06/02/2022 [facility] DATE CREATED AUTHOR AUTHOR'S ORGANIZ ATION 04/12/2024 [facility] ([place] DATE CREATED AUTHOR AUTHOR'S ORGANIZ ATION 08/01/2024 [facility] DATE CREATED AUTHOR AUTHOR'S ORGANIZ ATION 05/17/2025 [facility] DATE CREATED AUTHOR AUTHOR'S ORGANIZ ATION 06/10/2025 [facility] Care Teams (unrecognized sec tion and content) Paper Inserter Relationship Specialty Start Date End Date Elissa Dial [address] [place] [address] PCP - General Family Medicine 01/31/21 Paper Inserter Relationship Specialty Start Date End Date Elissa Dial [address] [place] [address] PCP - General Family Medicine 01/31/21 Paper Inserter Relationship Specialty Start Date End Date Elissa Dial [address] [place] [address] PCP - General Family Medicine 01/31/21 Paper Inserter Relationship Specialty Start Date End Date Elissa Dial [address] [place] [address] PCP - General Family Medicine 01/31/21 Paper Inserter Relationship Specialty Start Date End Date Elissa Dial [address] [place] [address] PCP - General Family Medicine 01/31/21 Paper Inserter Relationship Specialty Start Date End Date Elissa Dial [address] [place] [phone] PCP - General Family Medicine 01/31/21 Paper Inserter Relationship Specialty Start Date End Date Elissa Dial [address] [place] [id number] PCP - General Family Medicine 01/31/21 Paper Inserter Relationship Specialty Start Date End Date Elissa Dial [address] [place] [phone] PCP - General Family Medicine 01/31/21 Paper Inserter Relationship Specialty Start Date End Date Elissa Dial [address] [place] [phone] PCP - General Family Medicine 01/31/21 Paper Inserter Relationship Specialty Start Date End Date Elissa Dial [address] [place] [phone] PCP - General Family Medicine 01/31/21 Team Status: Active Member Role Status Dates Dr. Elissa Dial , DO Family Provider Active Dr. Elissa Dial , DO Primary Care Provider Active Team Status: Inactive Member Role Status Dates Dr. Elissa Dial , DO Primary Care Provider, Referrin g Provider Active Tung Saravia NP, VOYAGE MANAGEMENT SYSTEM OPERATOR-C Attending Provider Active Team Status: Inactive Member Role Status Dates Dr. Elissa Dial , DO Primary Care Provider, Attendin g Provider Active Team Status: Inactive Member Role Status Dates Dr. Elissa Dial DO Primary Care Provider Active Ed Physician Provider Attending Provider, Emergency Pr ovider Active Team Status: Inactive Member Role Status Dates Dr. Elissa Dial DO Primary Care Provider Active Dr. Marvin Meier MD Attending Provider, Referring Provider Active Team Status: Inactive Member Role Status Dates Dr. Elissa Dial , DO Primary Care Prov ider, Attending Provider, Referring Provider Active Paper Inserter Relationship Specialty Start Date End Date Elissa Dial [address] [place] [address] PCP - General 01/31/21 Tung Curry MD [address] [facility] [address] [place], [place] [id number] Surgeon General Surgery 08/18/22 Paper Inserter Relationship Specialty Start Date End Date Elissa Dial [address] [place] [address] PCP - General 01/31/21 Tung Curry MD [address] [facility] [address] [place], [place] [id number] Surgeon General Surgery 08/18/22 Team Status: Inactive Member Role Status Dates Dr. Elissa Dial DO Primary Care Provider, Referrin g Provider Active Dr. Tacho Julian MD Attending Provider Active Team Status: Inactive Member Role Status Dates Dr. Elissa Dial DO Primary Care Provider Active Arnoldo Serrano NP-C Attending Provider, Referring Prov ider Active Paper Inserter Relationship Specialty Start Date End Date Elissa Dial [address] [place] [address] PCP - General 01/31/21 Tung Curry MD [address] [place], [place] [id number] Surgeon General Surgery 08/18/22 Paper Inserter Relationship Specialty Start Date End Date Elissa Dial Jessica [address] [place] [address] PCP - General 01/31/21 Tung Curry MD [address] [place], [place] [id number] Surgeon General Surgery 08/18/22 Team Status: Inactive Member Role Status Dates Dr. Elissa Dial DO Primary Care Provider Active Dr. Daniel Sharma MD Emergency Provider Active Paper Inserter Relationship Specialty Start Date End Date Elissa Dial [address] [place] [place] [address] PCP - General 01/31/21 Tung uCrry MD [address] [place], [place] [id number] Surgeon General Surgery 08/18/22 Paper Inserter Relationship Specialty Start Date End Date Elissa Dial Jessica [address] [place] [place] [address] PCP - General 01/31/21 Tung Curry MD [address] [place], [place] [id number] Surgeon General Surgery 08/18/22 Paper Inserter Relationship Specialty Start Date End Date Elissa Dial [address] [place] [address] PCP - General 01/31/21 Tung Curry MD [address] [place] [address] [address] [place], [place] [id number] Surgeon General Surgery 08/18/22 Paper Inserter Relationship Specialty Start Date End Date JayroElissa shin [address] [place] [address] PCP - General 01/31/21 Tung Curry MD [address] [place] [address] [address] [place], [place] [id number] Surgeon General Surgery 08/18/22 Paper Inserter Relationship Specialty Start Date End Date JayroElissa shin [address] [place] [address] PCP - General 01/31/21 Tung Curry MD [address] [place] [address] [address] [place], [place] [id number] Surgeon General Surgery 08/18/22 Paper Inserter Relationship Specialty Start Date End Date Jayro Elissa Jessica [address] [place] [address] PCP - General 01/31/21 Tung Curry MD [address] [place] [address] [address] [place], [place] [id number] Surgeon General Surgery 08/18/22 Team Status: Inactive Member Role Status Dates Dr. Elissa Dial , Primary Care Provider, [place] godoy Provider Active Mary Rowe VOYAGE MANAGEMENT SYSTEM OPERATOR, VOYAGE MANAGEMENT SYSTEM OPERATOR-C Attending Provider Active Paper Inserter Relationship Specialty Start Date End Date Elissa Dial [address] [place] [address] PCP - General 01/31/21 Tung Curyr MD [address] [place] [address] [address] [place], [place] [id number] Surgeon General Surgery 08/18/22 Paper Inserter Relationship Specialty Start Date End Date Elissa Dial [address] [place] [address] PCP - General 01/31/21 Tung Curry MD [address] [place] [address] [address] [place], [place] [id number] Surgeon General Surgery 08/18/22 Paper Inserter Relationship Specialty Start Date End Date Elissa Dial [address] [place] [address] PCP - General 01/31/21 Tung Curry MD [address] [place] [address] [address] [place], [place] [id number] Surgeon General Surgery 08/18/22 Paper Inserter Relationship Specialty Start Date End Date Elissa Dial [address] [place] [address] PCP - General 01/31/21 Tung Curry MD [address] [facility] [address] [place], [place] [id number] Surgeon General Surgery 08/18/22 Paper Inserter Relationship Specialty Start Date End Date Elissa Dial [address] [place] [address] PCP - General 01/31/21 Tung Curry MD [address] [facility] [address] [place], [place] [id number] Surgeon General Surgery 08/18/22 Paper Inserter Relationship Specialty Start Date End Date Elissa Dial [address] [place] [address] PCP - General 01/31/21 Tung Curry MD [address] [place] [address] [address] [place], [place] [id number] Surgeon General Surgery 08/18/22 Paper Inserter Relationship Specialty Start Date End Date Elissa Dial [address] [place] [address] PCP - General 01/31/21 Tung Curry MD [address] [facility] [address] [place], [place] [id number] Surgeon General Surgery 08/18/22 Paper Inserter Relationship Specialty Start Date End Date Elissa Dial [address] [place] [address] PCP - General 01/31/21 Tung Curry MD [address] [place], [place] [id number] Surgeon General Surgery 08/18/22 Paper Inserter Relationship Specialty Start Date End Date Elissa Dial [address] [place] [address] PCP - General 01/31/21 Tung Curry MD [address] [facility] [address] [place] [address] Surgeon General Surgery 08/18/22 Paper Inserter Relationship Specialty Start Date End Date Elissa Dial [address] [place] [address] [facility] General 01/31/21 Tung Curry MD [address] [facility] [address] [place] [address] Surgeon General Surgery 08/18/22 Goals (unrecognized section and content) Goals may be documented in a n alternate section No data available for this section No data available for this section No data available for this section No data available for this sectionGoals may be documented in an alternate sectionGoals may be documented in an alternate sectionGoals may be documented in an alternate section No data available for this sectionGoals may be documented in an alternate sectionGoals may be documented in an alternate sectionGoals may be documented in an alternate sectionGoals may be documented in an alternate sectionGoals may be documented in an alternate sectionGoals may be documented in an alternate sectionGoals may be documented in an alternate section No data available for this section No data available for this sectionGoals may be documented in an alternate section No data available for this section No data available for this section No data available for this section No data available for this section No Information Available No Information Available Ordered Prescriptions (unrec ognized section and content) Prescription Sig Dispensed Refills Start Date End Da te ondansetron (ZOFRAN) 4 MG tablet Take 1 tablet by mouth every 4-6 hours as needed for Nausea or Vomiting 30 tablet 0 02/15/2022 oxyCODONE-acetaminophen (PERCOCET) 5-325 MG per tabletIndications:Morbid obesity with BMI of 45.0-49.9, adult (HCC) Take 1 tablet by mouth every 6 hours as needed for Pain for up to 7 days. Intended supply: 7 days. Take lowest dose possible to manage pain 28 tablet 0 02/15/2022 02/22/2022 Scheduled Active and Recently Administ ered Medications (unrecognized section and content) Medication Order 02/14/2022 02/15/2022 02/16/2022 acetaminophen (TYLENOL) tablet 1,000 mg (COMPLETED) 1,000 mg, Oral, ONCE, 1 dose, On Sun02/15/22 at 0630, Maximum dose of acetaminophen is 4000 mg from all sources in 24 hours. Do not administer if patient has taken tylenol <4 hours earlier. Do not give if contraindicated ie. patient has active liver disease or cirrhosis., Pre-op (day of surgery) 0636 (Given - Provider: Lor Martin RN) albuterol (PROVENTIL) nebulizer solution 2.5 mg 2.5 mg, Nebulization, 4 TIMES DAILY, First dose (after last modification) on Sun02/16/22 at 1200, Until Discontinued, Initiate RT Bronchodilator Protocol: Yes, Post-op 1243 (Given - Provid er: Bob Martin RCP)1733 (Not Given - Provider: Bob Maritn RCP - Reason: Patient not available)1999 (Due) ceFAZolin (ANCEF) 3,000 mg in dextrose 5 % 100 mL IVPB (COMPLETED) 3,000 mg, IntraVENous, ACCOUNTING MACHINE OPERATOR TO O.R., 1 dose, On Sun02/15/22 at 0630, Antimicrobial Indications: Surgical Prophylaxis, Administer within 1 hour prior to incision. Repeat in 3-4 hours after initial dose if still intra-op., Pre-op (day of surgery) 1516 (Given by Other Clinician - Provider: Vicki Winchester RN - Comment: OR) celecoxib (CELEBREX) capsule 400 mg (COMPLETED) 400 mg, Oral, ONCE, 1 dose, On Sun02/15/22 at 0630, Pre-op (day of surgery) 0636 (Given - Provider: Lor Martin RN) dilTIAZem (CARDIZEM CD) extended release capsule 180 mg 180 mg, Oral, DAILY, First dose on Mer 02/16/22 at 0900, Until Discontinued, Do not crush or break. 09 (Given - Provid er: Melba Vo RN) dilTIAZem injection 20 mg (CANCELED) 20 mg, IntraVENous, EVERY 6 HOURS, First dose on Sun02/15/22 at 1615, Until Discontinued, Administer over at least 2 minutes., Post-op 1620 (Given - Provider: Jazlyn Alvarez RN)2139 (Given - Provider: Violet Corona RN) 041 (Given - Provider: Violet Corona RN) enoxaparin (LOVENOX) injection 40 mg 40 mg, SubCUTAneous, EVERY 12 HOURS SCHEDULED (2 times per day), First dose on Sun02/15/22 at 2200, Until Discontinued, Indication of Use: Prophylaxis-DVT/PE, 40mg every 12 hours, subcutaneous, if 300 - 400 lbs., Post-op 2139 (Given - Provider: Violet Corona RN) 0841 (Given - Provider: Melba Vo RN)2199 (Due) famotidine (PEPCID) 20 mg in sodium chloride (PF) 10 mL injection (CANCELED) 20 mg, IntraVENous, 2 TIMES DAILY, First dose on Sun02/15/22 at 2100, Until Discontinued, Administer if oral route cannot be used, Post-op 2138 (Given - Provider: Violet Corona RN) 1028 (See Alternative - Provider: Melba Vo RN) famotidine (PEPCID) tablet 20 mg (COMPLETED) 20 mg, Oral, ONCE, 1 dose, On Sun02/15/22 at 0630, Pre-op (day of surgery) 0636 (Given - Provider: Lor Martin RN) famotidine (PEPCID) tablet 20 mg 20 mg, Oral, 2 TIMES DAILY, First dose on Sun02/15/22 at 2100, Until Discontinued, Post-op 2138 (See Alternative - Provider: Violet Corona RN) 1028 (Given - Provider: Melba Vo RN)2100 (Due) gabapentin (NEURONTIN) capsule 100 mg (COMPLETED) 100 mg, Oral, ONCE, 1 dose, On Sun02/15/22 at 0630, For Age >69, or Low GFR, Pre-op (day of surgery) 0636 (Given - Provider: Lor Martin, MONA) gabapentin (NEURONTIN) capsule 100 mg 100 mg, Oral, 3 TIMES DAILY, First dose on Sun02/16/22 at 0900, Until Discontinued 09 (Given - Provid er: Melba Vo, RN)1436 (Given - Provider: Melba Vo, RN)2100 (Due) heparin (porcine) injection 5,000 Units (COMPLETED) 5,000 Units, SubCUTAneous, ONCE, 1 dose, On Sun02/15/22 at 0630, Pre-op (day of surgery) 0636 (Given - Provider: Lor Martin RN) insulin lispro (HUMALOG) injection vial 0-18 Units (CANCELED) 0-18 Units, SubCUTAneous, EVERY 6 HOURS, First dose on Sun02/15/22 at 1615, Until Discontinued, High Dose Corrective Algorithm Glucose: Dose: 70-139 No Insulin 140-199 3 Units 200-249 6 Units 250-299 9 Units 300-349 12 Units 350-400 15 Units Over 400 18 Units 1638 (Held - Provider: Jazlyn Alvarez RN - Reason: Other - Comment: patient not eating at this time)2228 (Given - Provider: Violet Corona, MONA - Comment: bs =[phone]) 0433 (Not Given - Provider: Violet Croona RN - Reason: Order parameters not met) insulin lispro (HUMALOG) injection vial 0-18 Units 0-18 Units, SubCUTAneous, 4 TIMES DAILY BEFORE MEALS & NIGHTLY, First dose (after last modification) on Sun02/16/22 at 1100, Until Discontinued, High Dose Corrective Algorithm Glucose: Dose: 70-139 No Insulin 140-199 3 Units 200-249 6 Units 250-299 9 Units 300-349 12 Units 350-400 15 Units Over 400 18 Units 1105 (Given - Provid er: Melba Vo, MONA)1700 (Due)2100 (Due) ketorolac (TORADOL) injection 30 mg Ketorolac is contraindicated in patients with advanced renal impairment and in patients at risk of renal failure due to volume depletion. For 65 years of age and older OR weight less than 50 kg, use 15 mg IV every 6 hours; MAX dose: 60 mg/day. Dose greater than 30 mg must be administered via intramuscular route. Do not administer for more than 5 days., 30 mg, IntraVENous, EVERY 6 HOURS, 8 doses, First dose on Sun02/15/22 at 1615, Last dose on Sun02/17/22 at 1015, Do not administer for more than 5 days. 1621 (Given - Provider: Jazlyn Alvarez RN)2139 (Given - Provider: Violet Corona RN) 0419 (Given - Provider: Violet Corona RN)0929 (Given - Provider: Melab Vo RN)1615 (Due)2215 (Due) sertraline (ZOLOFT) tablet 100 mg 100 mg, Oral, DAILY, First dose on Sun02/16/22 at 0900, Until Discontinued 1028 (Given - Provid er: Melba Vo RN) sodium chloride flush 0.9 % injection 5-40 mL 5-40 mL, IntraVENous, EVERY 12 HOURS SCHEDULED (2 times per day), First dose on Sun02/15/22 at 2100, Until Discontinued, For Line Patency: Peripheral IV = 5 mL; Midline or Central Line = 10 mL/lumen. If following IV push medication, administer flush at same rate as the IV push. Flush volume is determined by type of infusion therapy being given. For non-viscous solutions use: Peripheral IV = 5 mL Midline or Central Line = 10 mL/lumen For viscous solutions (i.e. blood components, parenteral nutrition, contrast media, or after obtaining blood sample) use: Peripheral IV = 10 mL Midline or Central Line = 20 mL/lumen, Post-op 2140 (Not Given - Provider: Violet Corona RN - Reason: IV Fluid Infusing) 0830 (Not Given - Provider: Melba Vo RN - Reason: IV Fluid Infusing)2100 (Due) Continuous Medication Order 02/14/2022 02/15/2022 02/16/2022 0.45 % sodium chloride infusion IntraVENous, at 75 mL/hr, CONTINUOUS, Starting on Sun02/15/22 at 1615, Post-op 1621 (New Bag - Provider: Jazlyn Alvarez RN) 0151 (New Bag - Provider: Violet Corona RN)0841 (Rate/Dose Change - Provider: Melba Vo RN)1226 (New Bag - Provider: Melba Vo, RN)1559 (Stopped - Provider: Melba Vo, RN) PRN Medication Order 02/14/2022 02/15/2022 02/16/2022 0.9 % sodium chloride infusion IntraVENous, at 5-250 mL/hr, PRN, if patient receiving piggyback infusions and maintenance fluids are not ordered OR KVO fluids to protect IV site / prevent frequent line interruptions/ long duration, Starting on Sun02/15/22 at 1556, For piggyback infusion, administer at same rate as piggyback for a total of 25 mL. Enter 25 mL into dose field and piggyback rate into rate field of order. If piggyback is infusing at a rate less than 100 mL/hr, enter 25 mL into dose field and 100 mL/hr into rate field of order. For KVO fluids, enter rate of 20 mL/hr or less into rate field of order., Post-op ALPRAZolam (NIRAVAM) dissolvable tablet 0.25 mg (CANCELED) 0.25 mg, Oral, PRN, Starting on Sun02/15/22 at 0600, Until Sun02/15/22 at 1527, Anxiety, Pre-op (day of surgery) 0636 (Given - Provider: Lor Martin RN) dextrose 5 % solution 100 mL/hr, IntraVENous, PRN, Blood sugar less than 70mg/dL, Starting on Sun02/15/22 at 1556, Start infusion following administration of dextrose 50% or glucagon. dextrose 50 % IV solution 12.5 g, IntraVENous, PRN, Starting on Sun02/15/22 at 1556, Until Discontinued, Low blood sugar, Blood glucose less than 70 mg/dL and patient NOT ALERT or NPO., If patient does not respond within 5 minutes, repeat dose x1. Start D5W at 100 mL/hour until ordering provider can be reached. Repeat blood glucose in 15 minutes. If blood glucose is less than 70 mg/dL, repeat treatment and recheck blood glucose in 15 minutes x2. diphenhydrAMINE (BENADRYL) injection 25 mg 25 mg, IntraVENous, EVERY 6 HOURS PRN, Starting on Sun02/15/22 at 1556, Until Discontinued, Itching fentaNYL (SUBLIMAZE) injection 50 mcg (CANCELED) 50 mcg, IntraVENous, EVERY 5 MIN PRN, 3 doses, Starting on Sun02/15/22 at 0949, Until Sun02/15/22 at 1527, Pain Severe (7-10), Phase I or Phase II- Initial therapy for severe pain (7-10). Restricted to a 90 minute time frame starting when the patient can verbally state their pain score. If after 2 doses the pain score does not decrease by more than one point, then call the provider. If oral meds are utilized, do not return to initial therapy medications. SDS and, PACU only 1106 (Given - Provider: Violet Emmanuel, RN)1218 (Given - Provider: Violet Emmanuel, RN) glucagon (rDNA) injection 1 mg 1 mg, IntraMUSCular, PRN, Starting on Sun02/15/22 at 1556, Until Discontinued, Low blood sugar, Blood glucose less than 70 mg/dL and patient NOT ALERT or NPO and does not have IV access., After administration, attempt intravenous access and start D5W at 100 mL/hr. Repeat blood glucose in 15 minutes x2 and notify provider. Glucose (TRUEPLUS) oral gel 15 g 15 g, Oral, PRN, Starting on Sun02/15/22 at 1556, Until Discontinued, Low blood sugar, If blood glucose less than 50 mg/dL and patient ALERT and NOT NPO, give 2 tubes glucose gel. If blood glucose less than 70 mg/dL and patient ALERT and NOT NPO, give 1 tube glucose gel. Repeat blood glucose in 15 minutes. If blood glucose is less than 70 mg/dL, repeat treatment and recheck blood glucose in 15 minutes x2 and notify provider. hydrALAZINE (APRESOLINE) injection 20 mg 20 mg, IntraVENous, EVERY 6 HOURS PRN, Starting on Sun02/15/22 at 1556, Until Discontinued, High Blood Pressure, Give for SBP >160, hold for HR >100, 1st line, anti-HTN., Post-op insulin lispro (HUMALOG) injection vial 0-12 Units (COMPLETED) 0-12 Units, SubCUTAneous, PRN, 3 doses, Starting on Sun02/15/22 at 0600, Until Discontinued, Based on Glucose results, Corrective Low Dose Algorithm Glucose: Dose: If <180 No Insulin 181-240 4 Units 241-300 6 Units 301-350 8 Units 350-340 10 Units Over 400 12 Units, Pre-op (day of surgery) 1009 (Given - Provider: Violet Emmanuel, RN)1208 (Given - Provider: Violet Emmanuel, RN)1405 (Given - Provider: Violet Emmanuel RN) LORazepam (ATIVAN) injection 0.5 mg (CANCELED) 0.5 mg, IntraVENous, EVERY 10 MIN PRN, 2 doses, Starting on Sun02/15/22 at 0600, Until Sun02/15/22 at 1527, Anxiety, Other, Discomfort, On arrival to PACU Post-Op, PACU only 1050 (Given - Provider: Violet Emmanuel, RN) morphine sulfate (PF) injection 2 mg(Linked Group 1) 2 mg, IntraVENous, EVERY 2 HOURS PRN, Starting on Sun02/15/22 at 1556, Until Discontinued, Pain Moderate (4-6), If oral and IV narcotics ordered, use oral first and only use IV if oral is ineffective or cannot take oral. Do Not give oral and IV within 1 hour of each other unless specifically ordered., Post-op 162 (See Alternative - Provider: Jazlyn Alvarez RN)2003 (See Alternative - Provider: Violet Corona RN) 148 (See Alternative - Provider: Violet Corona RN)0841 (See Alternative - Provider: Melba Vo, RN) morphine sulfate (PF) injection 4 mg(Linked Group 1) 4 mg, IntraVENous, EVERY 2 HOURS PRN, Starting on Sun02/15/22 at 1556, Until Discontinued, Pain Severe (7-10), If oral and IV narcotics ordered, use oral first and only use IV if oral is ineffective or cannot take oral. Do Not give oral and IV within 1 hour of each other unless specifically ordered., Post-op 1620 (Given - Provider: Jazlyn Alvarez RN)2003 (Given - Provider: Violet Corona RN) 148 (Given - Provider: Violet Corona, RN)0841 (Given - Provider: Melba Vo, RN) ondansetron (ZOFRAN) injection 4 mg 4 mg, IntraVENous, EVERY 6 HOURS PRN, Starting on Sun02/15/22 at 1556, Until Discontinued, Nausea, Post-op oxyCODONE-acetaminophen (PERCOCET) 5-325 MG per tablet 1 tablet(Linked Group 2) Mg/kg dosing is based on the oxycodone component., 1 tablet, Oral, EVERY 4 HOURS PRN, Starting on Mer 02/16/22 at 0829, Until Discontinued, Pain Moderate (4-6), Maximum dose of acetaminophen is 4000 mg from all sources in 24 hours. 1028 (See Alternativ e - Provider: Melba Vo RN)1517 (See Alternative - Provider: Melba Vo RN) oxyCODONE-acetaminophen (PERCOCET) 5-325 MG per tablet 2 tablet(Linked Group 2) Mg/kg dosing is based on the oxycodone component., 2 tablet, Oral, EVERY 4 HOURS PRN, Starting on Mer 02/16/22 at 0829, Until Discontinued, Pain Severe (7-10), Maximum dose of acetaminophen is 4000 mg from all sources in 24 hours. 1028 (Given - Provid er: Melba Vo RN)1517 (Given - Provider: Melba Vo RN) sodium chloride flush 0.9 % injection 5-40 mL 5-40 mL, IntraVENous, PRN, Starting on Sun02/15/22 at 1556, Until Discontinued, Line Care, After every IV line use, For Line Patency: Peripheral IV = 5 mL; Midline or Central Line = 10 mL/lumen. If following IV push medication, administer flush at same rate as the IV push. Flush volume is determined by type of infusion therapy being given. For non-viscous solutions use: Peripheral IV = 5 mL Midline or Central Line = 10 mL/lumen For viscous solutions (i.e. blood components, parenteral nutrition, contrast media, or after obtaining blood sample) use: Peripheral IV = 10 mL Midline or Central Line = 20 mL/lumen, Post-op Linked Groups Order Group 1: morphine sulfate (PF) injection 2 mgJump to med 2 mg, IntraVENous, EVERY 2 HOURS PRN, Starting on Sun02/15/22 at 1556, Until Discontinued, Pain Moderate (4-6)
If oral and IV narcotics ordered, use oral first and only use IV if oral is ineffective or cannot take oral. Do Not give oral and IV within 1 hour of each other unless specifically ordered.
Post-op Or morphine sulfate (PF) injection 4 mgJump to med 4 mg, IntraVENous, EVERY 2 HOURS PRN, Starting on Sun02/15/22 at 1556, Until Discontinued, Pain Severe (7-10)
If oral and IV narcotics ordered, use oral first and only use IV if oral is ineffective or cannot take oral. Do Not give oral and IV within 1 hour of each other unless specifically ordered.
Post-op Group 2: oxyCODONE-acetaminophen (PERCOCET) 5-325 MG per tablet 1 tabletJump to med Mg/kg dosing is based on the oxycodone component.
1 tablet, Oral, EVERY 4 HOURS PRN, Starting on Sun02/16/22 at 0829, Until Discontinued, Pain Moderate (4-6)
Maximum dose of acetaminophen is 4000 mg from all sources in 24 hours.
Or oxyCODONE-acetaminophen (PERCOCET) 5-325 MG per tablet 2 tabletJump to med Mg/kg dosing is based on the oxycodone component.
2 tablet, Oral, EVERY 4 HOURS PRN, Starting on Mer 02/16/22 at 0829, Until Discontinued, Pain Severe (7-10)
Maximum dose of acetaminophen is 4000 mg from all sources in 24 hours.
Care Team (unrecognized sect ion and content) Care Team Personnel Name: ELISSA DIAL DO Member Role: Primary Care Physician Address: Address: [address] [place] [address]- Care Team Related Persons Name: MISBAH MONROE Name: ARNULFO MONROE Address: [address] [phone] Care Team Personnel Name: ELISSA DIAL DO Member Role: Primary Care Physician Address: Address: [address] [place] [address]- Care Team Related Persons Name: MISBAH MONROE Name: ARNULFO MONROE Address: [address] [phone] Care Team Personnel Name: ELISSA DIAL DO Member Role: Primary Care Physician Address: Address: [address] [place] [address]- Care Team Related Persons Name: MISBAH MONROE Name: ARNULFO MONROE Address: Home [address] [place] [phone] Care Team Personnel Name: ELISSA DIAL DO Member Role: Primary Care Physician Address: Address: [address] [place] [id number] Care Team Related Persons Name: MISBAH MONROE Name: ARNULFO MONROE Address: Home [address] [place] [phone] Care Team Personnel Name: ELISSA DIAL DO Member Role: Primary Care Physician Address: Address: [address] [place] [id number]- [place] Name: CHENG ALLISON MD Position: ED Physician Member Role: Attending Physician Address: Address: [facility] [address] [place] [id number] Care Team Related Persons Name: MISBAH MONROE Name: ARNULFO MONROE Address: Home [address] [place] [phone] Reason for Visit (unrecogniz ed section and content) right knee post Right total knee arthroplasty with Jasmeet robotic arm assistance on 06/22/2025, Postop - 1st visit Reason Comments Bariatrics Post Op Follow-up 12M Reason Onset Date Comments Abnormal Lab 02/26/2023 Low: h/h; Vitami n D, Magnesium Reason Comments Bariatrics Post Op Follow-up POP D/E FU Reason Onset Date Comments Abnormal Lab 03/30/2023 Low Vitamin D, l ow Hgb Reason Comments Med Refill Reason Comments Med Refill Prilosec Reason Comments Bariatrics Post Op Follow-up POP FU Reason Onset Date Comments Abnormal Lab 06/06/2023 Low Vitamin D Reason Comments Bariatrics Post Op Follow-up Pop d/e Reason Onset Date Comments Abnormal Lab 09/03/2023 Low Vitamin D an d low normal Ferritin Reason Comments Bariatrics Post Op Follow-up POP D/E FU Reason Comments Bariatrics Post Op Follow-up Pop f/u Reason Onset Date Comments Abnormal Lab 12/03/2023 Low Vitamin D Reason Comments Bariatrics Post Op Follow-up Pop fu Reason Comments Bariatrics Post Op Follow-up pop FOR RECORDS PERTAINING TO PATIENTS WHO ARE OR HAVE BEEN ENROLLED IN A CHEMICAL DEPENDENCY/SUBSTANCEABUSE PROGRAM, SOME INFORMATION MAY BE OMITTED. This clinical summary was aggregated from multiple sources. Caution should be exercised in using it in the provision of clinical care. This summary normalizes information from multiple sources, and as a consequence, information in this document may materially change the coding, format and clinical context of patient data. In addition, data may be omitted in some cases. CLINICAL DECISIONS SHOULD BE BASED ON THE PRIMARY CLINICAL RECORDS. [facility] provides no warranty or guarantee of the accuracy or completeness of information in this document.
--- NOTE | 2025-08-16 17:35 | RAD_ITS ---
PROCEDURE: CHEST 1 VIEW (PORTABLE) 08/16/2025 REASON FOR EXAM: COUGH TECHNIQUE: Frontal view of the chest. FINDINGS: No focal consolidation. No pleural effusion or pneumothorax. Cardiac silhouette is within normal limits. No acute fractures. RAD/Chest 1 View (Portable) IMPRESSION: No focal consolidations. Reading Location: [id number]
[2025-08-16 17:37] VITALS: BP 134/76; PULSE 96; RESP 17; O2SAT 99
--- NOTE | 2025-08-16 17:43 | EX.ED.DYSGE1 ---
HPI History of Present Illness Chief Complaint: Dizziness Informant: patient and spouse/S.O. Narrative Narrative: 69-year-old female presenting to the emergency room with near syncope. Patient states that over the past several days she has had a cold. She notes cough and rhinorrhea. She denies fever. She notes decreased appetite and has not been eating or drinking well. She notes that today she has felt like she is in a pass out when she stands up and sometimes at rest. She denies any chest pain or palpitations. [facility] Medical History Anemia Anxiety Depression, unspecified COVID-19 Encounter for screening for COVID-19 Chronic diastolic heart failure IBS (irritable bowel syndrome) GERD (gastroesophageal reflux disease) Premature ventricular contraction Premature atrial contraction SVT (supraventricular tachycardia) Essential hypertension Type 2 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 Asthma Congestive heart failure Anxiety and depression Home Medications ?Medication ?Instructions ?Recorded ?Last Taken ?Type tramadol 50 mg tablet 50 mg PO Q6H PRN PRN Pain #8 tabs 04/09/14 Unknown Rx meclizine 25 mg tablet 25 mg PO TID PRN Dizziness 05/28/19 Unknown History gabapentin 100 mg capsule 100 mg PO TID 03/29/21 Unknown History furosemide 20 mg tablet 20 mg PO DAILY PRN Swelling 05/26/21 Unknown History omeprazole magnesium 20 mg 20 mg PO DAILY 06/01/22 Unknown History tablet,delayed release (Prilosec OTC) warfarin 5 mg tablet 3 mg PO MOWEFR 06/01/22 Unknown History vibegron 75 mg tablet (Gemtesa) 75 mg PO DAILY 01/08/23 Unknown History atorvastatin 40 mg tablet 40 mg PO QHS 07/18/23 Unknown History potassium chloride 20 mEq 20 meq PO BID 07/18/23 Unknown History tablet,extended release ropinirole 3 mg tablet 3 mg PO QHS restless legs 01/02/24 Unknown History losartan 100 mg tablet 100 mg PO QDAY 07/11/24 Unknown History metformin 500 mg tablet 500 mg PO BID 07/11/24 Unknown History albuterol sulfate 90 mcg/actuation 2 puff inhalation Q6H PRN Wheezing 10/10/24 Unknown Rx aerosol inhaler (Ventolin HFA) #8.5 grams amlodipine 5 mg tablet 5 mg PO QDAY 10/10/24 Unknown History hydroxyzine HCl 25 mg tablet 25 mg PO TID PRN anxiety #90 tabs 01/08/25 Unknown Rx duloxetine 60 mg capsule,delayed 60 mg PO DAILY #90 caps 02/17/25 Unknown Rx release fesoterodine 4 mg tablet,extended 4 mg PO QDAY 90 days #90 tabs 06/02/25 Unknown Rx release 24 hr (Toviaz) methenamine hippurate 1 gram tablet 1 g PO BID #180 tabs 06/03/25 Unknown Rx nitrofurantoin 100 mg PO BID #14 caps 06/03/25 Unknown Rx monohydrate/macrocrystals 100 mg capsule (Macrobid) oxycodone-acetaminophen 5 mg-325 1 tab PO Q6 PRN pain 08/11/25 Unknown History mg tablet nitrofurantoin 100 mg PO Q12 #10 CAPSULES 08/16/25 Unknown Rx monohydrate/macrocrystals 100 mg capsule Allergy/AdvReac Type Severity Reaction Status Date / Time KENYA Inhibitors Allergy cough Verified 08/16/25 15:37 clindamycin Allergy Hives Verified 08/16/25 15:37 liraglutide (From Victoza) Allergy lump in Verified 08/16/25 15:37 throat metoprolol Allergy unk Verified 08/16/25 15:37 propoxyphene napsylate (From Allergy Unknown Verified 08/16/25 15:37 Darvocet-N 100) repaglinide AdvReac Severe Back Pain, Verified 08/16/25 15:37 PULIDO, Nausea Family History Father Diabetes Heart disease Mother CVA (cerebral vascular accident) Alzheimer disease Osteoporosis Sister Cancer throat, mouth Infertility Diabetes Blood clot associated with vein wall inflammation Mouth cancer Throat cancer FH: kidney cancer Aunt Breast cancer Surgical History History of total right knee replacement History of cholecystectomy History of laparoscopic-assisted vaginal hysterectomy History of hip replacement Hx of appendectomy Social History household members: spouse Smoking Status: Never smoker alcohol intake: never substance use type: does not use caffeine: Yes what type of physical activity do you participate in: none seatbelt use: always do you feel safe at home: Yes additional social history: [place]- Retired from [employer] ROS ROS ED ROS Narrative Generalized fatigue Constitutional Constitutional ED: Denies chills, fever(s) or weight loss Eyes Eyes: Denies blurry vision, change in vision or diplopia ENT ENT ED: Reports rhinorrhea; Denies ear pain or sore throat Cardiovascular Cardiovascular: Reports other Details: Near syncope ; Denies chest pain, orthopnea, palpitations or racing heartbeat Respiratory/Chest Respiratory/Chest: Reports cough; Denies dyspnea or orthopnea Gastrointestinal Gastrointestinal: Reports other Details: Decreased appetite ; Denies abdominal pain, diarrhea, nausea or vomiting Genitourinary Genitourinary ED: Denies dysuria, hematuria or urinary frequency Musculoskeletal Musculoskeletal: Denies arthralgias or myalgias Integumentary Denies abscess or rash Neurologic Neurologic: Denies headache(s) or weakness Psychiatric Psychiatric: Denies anxiety, depression, suicidal ideation or suicidal thoughts Endocrine Endocrinology: Denies polydipsia, polyphagia or polyuria Allergic/Immunologic Allergic/Immunologic ED: Denies mouth swelling, tongue swelling or urticaria EXAM Physical Exam Const Vital Signs: 08/16/25 15:38 08/16/25 17:37 08/16/25 17:59 Temperature 96.7 F L Temperature Source Temporal Pulse Rate 113 H 96 Respiratory Rate 18 17 Respiratory Effort Normal Non-Labored Blood Pressure 144/102 H 134/76 H Blood Pressure Mean 116 95 Pulse Ox 99 99 Oxygen Delivery Method Room Air Room Air 08/16/25 19:00 08/16/25 20:41 Temperature 98 F Temperature Source Pulse Rate 94 86 Respiratory Rate 17 18 Respiratory Effort Blood Pressure 115/91 H 116/80 Blood Pressure Mean 99 92 Pulse Ox 95 98 Oxygen Delivery Method Room Air Positive well nourished and well developed General Appearance ED: well developed and NAD HEENT Reports normocephalic, head/scalp atraumatic and dry mucous membranes Mouth ED: Yes dry mucous membranes Mouth: dry mucous membranes Eyes PERRL and EOMs intact bilaterally Neck no lymphadenopathy, supple and no JVD Resp normal respiratory effort and clear to auscultation bilaterally Cardio regular rhythm and no murmurs Rate: tachycardic GI normal to inspection, nondistended, normoactive bowel sounds and non-tender Palpation: soft Back/Spine no CVA tenderness and normal ROM Extremity normal to inspection General Extremety ED: Negative for edema General Extremity: Negative for edema Neuro oriented x3 and CN's II-XII intact bilaterally Sensorium / Orientation: alert Motor Exam: strength 5/5 throughout Psych mental status grossly normal Mood & Affect: Negative for depressed or tearful Skin no rashes or lesions noted and no wounds MDM MDM MDM Narrative Medical decision making narrative: Differential diagnosis includes but not limited to dehydration pneumonia electrolyte abnormalities acute kidney injury UTI dysrhythmia ACS 2 sets of cardiac enzymes are 24 and is 19. Lactic acid is normal. White count of 8.4 normal creatinine proBNP is 443. Urinalysis greater than 100 white cells 3+ bacteria positive leukocyte esterase sent for culture. She received Rocephin as well as a liter of IV fluids. Heart rate is down from 1 13-86. She is not having any further near syncope. I think she had some mild dehydration by not eating or drinking as much. I think she most likely has a viral syndrome plus a UTI. I will write her Macrobid as she has grown out E. coli in the past. She states she is post to see urology later this week. History & Record Review Discussion w/independent historian: Patient Lab Data Attestation: I reviewed the patient's lab results. Labs: Laboratory Results - last 24 hr 08/16/25 08/16/25 08/16/25 17:35 17:49 18:28 WBC 8.4 RBC 4.71 Hgb 13.0 Hct 40.4 MCV 85.8 MCH 27.6 MCHC 32.2 RDW Std Deviation 41.5 RDW Coeff of Jane 13.3 Plt Count 432 MPV 8.7 Immature Gran % (Auto) 0.400 Neut % (Auto) 60.8 Lymph % (Auto) 28.2 Dawson % (Auto) 6.8 Eos % (Auto) 3.3 Baso % (Auto) 0.5 Absolute Neuts (auto) 5.1 Absolute Lymphs (auto) 2.38 Nucleated RBC % 0 Sodium 141 Potassium 3.6 Chloride 100 Carbon Dioxide 27.3 Anion Gap 13 BUN 14 Creatinine 0.87 Est GFR (MDRD) Non-Af 71 BUN/Creatinine Ratio 15.7 Glucose 171 H Lactic Acid 1.5 Calcium 9.5 Troponin T High Sens 24 H Troponin T Hi Sens 2 Hr NT pro BNP II 443 Urine Color Yellow Urine Clarity Sl. Cloudy Urine pH 6.0 Ur Specific [place] 1.015 Urine Protein 30 H Urine Glucose (UA) Normal Urine Ketones Negative Urine Occult Blood 50 H Urine Nitrite Negative Urine Bilirubin Negative Urine Urobilinogen Normal Ur Leukocyte Esterase 500 H Urine RBC 0 SEEN Urine WBC >100 SEEN Ur Squamous Epith Cells 5-10 SEEN Urine Bacteria 3+ Urine Mucus 0 SEEN 08/16/25 19:30 WBC RBC Hgb Hct MCV MCH MCHC RDW Std Deviation RDW Coeff of Jane Plt Count MPV Immature Gran % (Auto) Neut % (Auto) Lymph % (Auto) Dawson % (Auto) Eos % (Auto) Baso % (Auto) Absolute Neuts (auto) Absolute Lymphs (auto) Nucleated RBC % Sodium Potassium Chloride Carbon Dioxide Anion Gap BUN Creatinine Est GFR (MDRD) Non-Af BUN/Creatinine Ratio Glucose Lactic Acid Calcium Troponin T High Sens Troponin T Hi Sens 2 Hr 19 H NT pro BNP II Urine Color Urine Clarity Urine pH Ur Specific [place] Urine Protein Urine Glucose (UA) Urine Ketones Urine Occult Blood Urine Nitrite Urine Bilirubin Urine Urobilinogen Ur Leukocyte Esterase Urine RBC Urine WBC Ur Squamous Epith Cells Urine Bacteria Urine Mucus Radiography Diagnostic Testing: Clinical Impression(s) from Imaging Studies Chest X-Ray 08/16/25 17:35 IMPRESSION: No focal consolidations. Reading Location: [facility] EKG Initial EKG: Attestation: I personally reviewed and interpreted this EKG as follows: Comments: Normal sinus rhythm ventricular rate of 96 bpm Discharge Plan Triage Chief Complaint: Dizziness ED Provider: Jack Agustin Dx/Rx/DC Orders Clinical Impression: URI (upper respiratory infection), Near syncope, Acute dehydration, UTI (urinary tract infection) Instructions: Dehydration, ED Near-Fainting, Uncertain Cause, ED URI, Viral, No Abx (Adult) Prescriptions: New nitrofurantoin monohyd/m-cryst 100 mg capsule 100 mg PO Q12 Qty: 10 0RF No Action meclizine 25 mg tablet 25 mg PO TID PRN (Reason: Dizziness) gabapentin 100 mg capsule 100 mg PO TID warfarin 5 mg tablet 3 mg PO MOWEFR omeprazole magnesium [Prilosec OTC] 20 mg tablet,delayed release (DR/EC) 20 mg PO DAILY Gemtesa 75 mg tablet 75 mg PO DAILY atorvastatin 40 mg tablet 40 mg PO QHS Patient Comments: TAKE 1 TABLET BY MOUTH EVERY DAY potassium chloride 20 mEq tablet extended release 20 meq PO BID Patient Comments: TAKE 1 TABLET BY MOUTH TWICE DAILY WITH FOOD amlodipine 5 mg tablet 5 mg PO QDAY albuterol sulfate [Ventolin HFA] 90 mcg/actuation HFA aerosol inhaler 2 puff INHALATION Q6H PRN (Reason: Wheezing) Qty: 8.5 11RF metformin 500 mg tablet 500 mg PO BID losartan 100 mg tablet 100 mg PO QDAY duloxetine 60 mg capsule,delayed release(DR/EC) 60 mg PO DAILY Qty: 90 1RF fesoterodine [Toviaz] 4 mg tablet extended release 24 hr 4 mg PO QDAY 90 Days Qty: 90 3RF oxycodone-acetaminophen 5-325 mg tablet 1 tab PO Q6 PRN (Reason: pain) ropinirole 3 mg tablet 3 mg PO QHS Patient Comments: RESTLESS LEGS tramadol 50 MG tablet 50 mg PO Q6H PRN PRN (Reason: Pain) Qty: 8 0RF Patient Comments: pain furosemide 20 mg tablet 20 mg PO DAILY PRN (Reason: Swelling) hydroxyzine HCl 25 mg tablet 25 mg PO TID PRN (Reason: anxiety) Qty: 90 3RF methenamine hippurate 1 gram tablet 1 g PO BID Qty: 180 3RF Rx Instructions: start after Macrobid is completed. nitrofurantoin monohyd/m-cryst [Macrobid] 100 mg capsule 100 mg PO BID Qty: 14 0RF Rx Instructions: must administer with a meal/food Primary Care Provider: Sukhdeep Matthews Referrals: Jennifer Servin MD [Med Staff - Active Staff, Urology] - Keep [place] appointment Sukhdeep Matthews DO [Primary Care Provider, Family Practice] - 3-5 Days if not improving Print Language: [place] Citizen Disposition Disposition: Home, Self Care Discharge Date/Time: 08/16/25 20:47
[2025-08-16] MEDS: 0.9% Normal Saline (1000mL) 1,000 ML 1000 ML IV (17:44)
[2025-08-16 17:45] LABS: Hematocrit 40.4 % (37-47); Hemoglobin 13.0 g/dL (12.0-15.0); Immature Granulocytes Count 0.030 X10^3/uL (0.0-0.0); Mean Corp Hgb Conc 32.2 g/dL (32-36); Mean Corpuscular Volume 85.8 fL (81-99); Mean Platelet Vol. 8.7 fl (6.2-12.0); NRBC Flagged by Analyzer 0 % (0-5); Platelet Count 432 K/mm3 (150-450); RBC Distribution Width CV 13.3 % (11.6-14.6); RBC Distribution Width SD 41.5 fl (35.1-43.9); Red Blood Count 4.71 M/mm3 (4.2-5.4); White Blood Count 8.4 K/mm3 (4.4-11.0)
[2025-08-16 17:56] LABS: Mucous, Urine 0 SEEN /hpf (<or=2+); Red Blood Cells-Urine 0 SEEN /hpf (0-5)
[2025-08-16 17:57] LABS: Color, Urine Yellow (Yellow); Glucose, Dipstick Normal (Normal); Ketone-Dipstick Negative (Negative); Leukocyte Esterase-Dipstick 500 /ul (Negative); Nitrite-Dipstick Negative (Negative); Occult Blood-Urine 50 /ul (Negative); Protein-Dipstick 30 mg/dl (Negative); Specific Gravity, Urine 1.015 (1.002-1.030); Urine Bilirubin Dipstick Negative (Negative)
[2025-08-16 18:09] LABS: Squamous Epithelial Cells - UA 5-10 SEEN /hpf (5-10)
[2025-08-16 18:10] LABS: Anion Gap 13 (5-15); BUN 14 mg/dL (4-19); BUN/Creat Ratio 15.7 RATIO (10-20); Calcium,Total 9.5 mg/dL (7.6-11.0); Carbon Dioxide 27.3 mmol/L (21.0-32.0); Chloride 100 mmol/L (98-108); Glucose 171 mg/dL (70-99); Potassium 3.6 mmol/L (3.3-5.1); Pro- Brain NATRIURETIC PEPTIDE 443 pg/mL (<=900); Troponin T High Sensitivity 24 ng/L (<=14)
[2025-08-16 19:00] VITALS: BP 115/91; PULSE 94; RESP 17; O2SAT 95
[2025-08-16 19:02] VITALS: BMI 42.5
[2025-08-16 20:08] LABS: Troponin T High Sens 2 HR 19 ng/L (<=14)
[2025-08-16 20:41] VITALS: BP 116/80; PULSE 86; RESP 18; TEMP 36.6; O2SAT 98
== END 2025-08-16 20:47 | disposition home or self-care (01) ==
PROVIDERS: Emergency Provider Emergency Medicine; PCP Family Medicine; Visit Provider Emergency Medicine
DX: J06.9 Acute upper respiratory infection, unspecified (principal); I50.32 Chronic diastolic (congestive) heart failure; I11.0 Hypertensive heart disease with heart failure; E11.9 Type 2 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 without complications; N39.0 Urinary tract infection, site not specified; E86.0 Dehydration; R55 Syncope and collapse; Z79.84 Long term (current) use of oral hypoglycemic drugs; Z79.899 Other long term (current) drug therapy; Z86.16 Personal history of COVID-19
CPT/HCPCS: 71045; 80048; 81001; 83605; 83880; 84484; 85025; 87040; 87086; 87088; 87186; 87631; 93005; 96361; 96365; 99284; A4216